=== PATIENT | female | born 1960 | race African-American/Black ===

== ENCOUNTER 2016-09-23 21:30 | Inpatient (IN) | payer OTHER ==
[2016-09-23 22:57] LABS: ABSOLUTE EOSINOPHILS # (AUTO) 0.5 10^3/uL (0.0-0.6); ABSOLUTE MONOCYTES (AUTO) 0.9 10^3/uL (0.1-1.4); BASOPHILS % (AUTO) 0.7 % (0-2); EOSINOPHILS % (AUTO) 7.2 % (0-6); HEMATOCRIT 39.3 % (36.0-47.0); HGB HCT DIFFERENCE -0.3; LYMPHOCYTES % (AUTO) 13.5 % (13-45); MEAN CORPUSCULAR HGB CONC 33.2 g/dL (32.0-36.0); MEAN CORPUSCULAR VOLUME 78 fl (80-97); RED BLOOD COUNT 5.01 10^6/uL (3.72-5.28); RED CELL DISTRIBUTION WIDTH 14.5 % (11.5-14.0); SEGMENTED NEUTROPHILS % (AUTO) 66.6 % (42-78); WHITE BLOOD COUNT 7.5 10^3/uL (4.0-10.5)
[2016-09-24] MEDS ORDERED: ALBUTEROL SULFATE 0.083% NEB 2.5 MG/3 ML AMPUL NEB ONE
[2016-09-24] MEDS ORDERED: LEVOFLOXACIN 750 MG/D5W RTU 150 ML IV ONE (00:16)
[2016-09-24] MEDS ORDERED: IPRATROPIUM/ALBUTEROL 0.5-2.5 MG/3 ML AMPUL NEB ONE (00:18)
[2016-09-24] MEDS ORDERED: METHYLPREDNISOLONE INJ 125 MG/2 ML SDV IV ONE (00:18)
[2016-09-24 00:26] LABS: VENOUS BLOOD BASE EXCESS 4.2 mmol/L; VENOUS BLOOD HCO3 29.7 mmol/L (20-32); VENOUS BLOOD PCO2 47.4 mmHg (35-63); VENOUS BLOOD PH 7.42 (7.30-7.42)
[2016-09-24] MEDS: MAGNESIUM SULFATE/D5W 100 ML IV SCH ×4 (00:36→04:18)
[2016-09-24 00:38] LABS: ALANINE AMINOTRANSFERASE 32 U/L (9-52); ALBUMIN 4.7 g/dL (3.5-5.0); ALKALINE PHOSPHATASE 124 U/L (38-126); ANION GAP 12 (5-19); ASPARTATE AMINO TRANSFERASE 25 U/L (14-36); BILIRUBIN,TOTAL 0.9 mg/dL (0.2-1.3); BLOOD UREA NITROGEN 9 mg/dL (7-20); CALCIUM 10.2 mg/dL (8.4-10.2); CARBON DIOXIDE 29 mmol/L (22-30); CHLORIDE 103 mmol/L (98-107); CREATININE RESULT 0.64 mg/dL (0.52-1.25); GLUCOSE 110 mg/dL (75-110); POTASSIUM 3.5 mmol/L (3.6-5.0); SODIUM 144.2 mmol/L (137-145)
--- NOTE | 2016-09-24 00:47 | ER Document Report ---
ED General - General Chief Complaint: Productive Cough Stated Complaint: PAIN IN SIDE Notes: Patient's 56 year old female presents for complaint of difficulty breathing. She was seen at [facility] emergency department yesterday. She is diagnosed with pneumonia and sent home on an antibiotic. She's unsure what antibiotic is at this time. Today she had difficulty breathing which increased worsened. She came in with O2 saturation 93% in triage; however, I got her back to room her O2 saturations in the 80s and she is working hard to breathe and tachycardic and tachypneic. She was a smoker 25 years ago. She does not smoke since. She's been told the past that she may have COPD. No history of asthma. She is unsure if she's had fevers at home. No other complaints at this time. TRAVEL OUTSIDE OF THE [place] IN LAST 30 DAYS: No - Related Data Allergies/Adverse Reactions: benzonatate [From T4 [employer]] Allergy (Verified 09/24/16 03:09) NSAIDS (Non-Steroidal Anti-Inflamma Allergy (Verified 09/24/16 03:09) Home Medications: Current Home Medications Albuterol Sulfate [Albuterol Sulfate 2.5mg/3 mL] 1 vial IH Q4 PRN 09/24/16 [ History] Albuterol Sulfate [Ventolin Hfa] 1 - 2 puff IH Q4 PRN 09/24/16 [History] Doxycycline Hyclate [Vibramycin] 100 mg PO BID 09/24/16 [History] Fluticasone/Vilanterol [Breo Ellipta 100-25 Mcg INH] 1 each IH DAILY 09/24/16 [ History] Metoprolol Tartrate [Lopressor 25 mg Tablet] 25 mg PO BID 09/24/16 [History] Past Medical History - Social History Smoking Status: Unknown if Ever Smoked Frequency of alcohol use: None Drug Abuse: None Family History: Reviewed & Not Pertinent Patient has suicidal ideation: No Patient has homicidal ideation: No Renal/ Medical History: Denies: Hx Peritoneal Dialysis Review of Systems - Review of Systems Notes: My Normal Review Basic REVIEW OF SYSTEMS: CONSTITUTIONAL : Denies fever, chills, or sweats. Denies recent illness. EENT: Denies eye, ear, throat, or mouth pain or symptoms. Denies nasal or sinus congestion. CARDIOVASCULAR: Denies chest pain. RESPIRATORY: Difficulty breathing. Recent diagnosis of pneumonia. GASTROINTESTINAL: Denies abdominal pain. Denies nausea, vomiting, or diarrhea. Denies constipation. Last BM: P: MUSCULOSKELETAL: Denies neck or back pain or joint pain or swelling. SKIN: Denies rash or skin lesions. HEMATOLOGIC : Denies easy bruising or bleeding. NEUROLOGICAL: Denies altered mental status or loss of consciousness. Denies headache. Denies weakness or paralysis or loss of use of either side. Denies problems with gait or speech. Denies sensory or motor loss. ALL OTHER SYSTEMS REVIEWED AND NEGATIVE. Physical Exam - Vital signs Vitals: Temp Pulse Resp BP Pulse Ox 97.8 F 123 H 26 H 140/68 H 93 09/23/16 22:07 09/23/16 22:07 09/23/16 22:07 09/23/16 22:07 09/23/16 22:07 - Notes Notes: General Appearance: Well nourished, alert, cooperative, moderate acute distress , no obvious discomfort. Patient is very tachypneic. Vitals: reviewed, See vital signs table. Head: no swelling or tenderness to the head Eyes: PERRL, EOMI, Conjuctiva clear Mouth: No decreasd moisture Throat: No tonsillar inflammation, No airway obstruction, No lymphadenopathy Neck: Supple, no neck tenderness, No thyromegaly Lungs: Diffuse wheezing, No rales, No rhonci, No accessory muscle use, fair air exchange bilaterally. Heart: Tachycardic rate, Regular rythm, No murmur, no rub Abdomen: Normal BS, soft, No rigidity, No abdominal tenderness, No guarding, no rebound, no abdominal masses, no organomegaly Extremities: strength 5/5 in all extremities, good pulses in all extremities, no swelling or tenderness in the extremities, no edema. Skin: warm, dry, appropriate color, no rash Neuro: speech clear, oriented x 3, normal affect, responds appropriately to questions. Course - Re-evaluation Re-evalutation: 09/24/16 02:09 Reevaluation the patient is still tachycardic. Her tachypnea is somewhat improved but she still has some obvious difficulty breathing. Lung preciado are improving. She does not have near as much wheezing. Her oxygen saturation is only 91% on [address] her on BiPAP. 09/24/16 02:47 She is feeling improved on BiPAP. She still very tachycardic. Her chest x-ray shows what appears to be did be consistent with maybe a pneumonia. She's had no fevers. She does not have much of a leukocytosis. I did perform a CT scan to make sure that this is not an underlying pulmonary embolism that could be making the infiltrative type appearing lesion on the x-ray being that shehas actually not had any real infectious symptoms leading up to this. - Vital Signs Vital signs: Temp Pulse Resp BP Pulse Ox 97.8 F 123 H 21 H 138/62 H 97 09/23/16 22:07 09/23/16 22:07 09/24/16 04:31 09/24/16 04:31 09/24/16 04:31 - Laboratory Result Diagrams: 09/23/16 22:45 09/24/16 00:10 Laboratory results interpreted by me: 09/23/16 09/24/16 22:45 00:10 MCV 78 L MCH 26.0 L RDW 14.5 H Eosinophils % 7.2 H Potassium 3.5 L - EKG Interpretation by Me Additional EKG results interpreted by me: 09/24/16 00:47 EKG is reviewed and interpreted by me. EKG shows sinus tachycardia with rate of [address] segment elevation or depression. No ischemic T wave inversions. IA interval, QRS duration, QTC intervals are within normal range. No old EKG available for comparison. - Transfer of Care Notes: 09/24/16 04:42 Patient is much improved on a BiPAP. Her oxygenation and heart rate are improving with BiPAP. I did performed a CT injury. He was negative for PE. This showed pneumonia. I placed her on Levaquin. Patient will be admitted for management of her pneumonia and hypoxemia. Dictation of this chart was performed using voice recognition software; therefore, there may be some unintended grammatical errors. Discharge - Discharge Clinical Impression: Respiratory distress Pneumonia Qualifiers: Pneumonia type: due to unspecified organism Laterality: right Lung location: lower lobe of lung Qualified Code(s): J18.1 - Lobar pneumonia, unspecified organism Condition: Stable Disposition: ADMITTED INPATIENT Admitting Provider: Hospitalist Unit Admitted: Telemetry
[2016-09-24] MEDS ORDERED: NORMAL SALINE 1000 ML 1,000 ML IV ONE (02:46)
[2016-09-24] MEDS ORDERED: NORMAL SALINE 1000 ML 500 ML IV ONE (02:46)
[2016-09-24] MEDS ORDERED: IPRATROPIUM/ALBUTEROL 0.5-2.5 MG/3 ML AMPUL NEB PRN (04:47)
[2016-09-24] MEDS ORDERED: CEFEPIME INJ 2 GM VIAL IV PRN (04:59)
[2016-09-24] MEDS ORDERED: NORMAL SALINE 1000 ML 1,000 ML IV SCH (05:00)
[2016-09-24] MEDS: CEFEPIME 2 GM/D5W RTU 2 GM/50 ML RTUPB IV SCH ×2 (05:48→18:24)
[2016-09-24] MEDS: HEPARIN SOD (PORCINE) 5,000 UNIT/ML 1 ML SYRINGE SUBCUT SCH ×3 (05:54→21:15)
[2016-09-24] MEDS ORDERED: LACTULOSE SYRUP 20 GM/30 ML UDCUP PO ONE (06:30)
--- NOTE | 2016-09-24 07:48 | PDOC H&P ---
History of Present Illness Admission Date/PCP: 09/24/16 04:47 Patient complains of: Shortness of breath and cough History of Present Illness: ADDIE STEWART is a 56 year old female with a past medical history of COPD and nasal polyps and been her usual state of health until approximately 6 weeks ago with shortness of breath. Who is seen yesterday at [facility]. for shortness of breath and cough she was diagnosed with pneumonia and given a prescription of doxycycline however the patient has persistent worsening. She comes to emergency room for a reevaluation where she's found to be tachypneic and hypoxic requiring BiPAP at 50% a chest x-ray shows right-sided infiltrate she denies previous episode or coughing while eating. Denies infectious contacts, or changes in her medication regiment with exception to doxycycline. Past Medical History Pulmonary Medical History: Reports: Chronic Obstructive Pulmonary Disease (COPD) , Pneumonia EENT Medical History: Reports: Nose - Nasal polyps, Other Neurological Medical History: Reports: None Endocrine Medical History: Reports: None Renal/ Medical History: Reports: None Malignancy Medical History: Reports: None GI Medical History: Reports: None Musculoskeltal Medical History: Reports: None Skin Medical History: Reports: None Psychiatric Medical History: Reports: None Hematology: Reports: None Infectious Medical History: Reports: None Past Surgical History Past Surgical History: Reports: None Social History Information Source: Patient Lives with: Family Smoking Status: Unknown if Ever Smoked Frequency of Alcohol Use: None Drugs: None - Advance Directive Resuscitation Status: Full Code Family History Family History: COPD, Hypertension Parental Family History Reviewed: Yes Children Family History Reviewed: Yes Sibling(s) Family History Reviewed.: Yes Medication/Allergy Home Medications: Albuterol Sulfate [Albuterol Sulfate 2.5mg/3 mL] 1 vial IH Q4 PRN 09/24/16 Albuterol Sulfate [Ventolin Hfa] 1 - 2 puff IH Q4 PRN 09/24/16 Doxycycline Hyclate [Vibramycin] 100 mg PO BID 09/24/16 Fluticasone/Vilanterol [Breo Ellipta 100-25 Mcg INH] 1 each IH DAILY 09/24/16 Metoprolol Tartrate [Lopressor 25 mg Tablet] 25 mg PO BID 09/24/16 Allergies/Adverse Reactions: benzonatate [From Wes Blanco] Allergy (Verified 09/24/16 03:09) NSAIDS (Non-Steroidal Anti-Inflamma Allergy (Verified 09/24/16 03:09) Review of Systems Constitutional: PRESENT: chills, fatigue, fever(s), weakness Eyes: ABSENT: visual disturbances Ears: ABSENT: hearing changes Nose, Mouth, and Throat: PRESENT: as per HPI Cardiovascular: ABSENT: chest pain, dyspnea on exertion, edema, orthropnea, palpitations Respiratory: PRESENT: cough, dyspnea, sputum - Clear. ABSENT: hemoptysis Gastrointestinal: ABSENT: abdominal pain, constipation, diarrhea, hematemesis, hematochezia, nausea, vomiting Genitourinary: ABSENT: dysuria, hematuria Musculoskeletal: ABSENT: joint swelling Integumentary: ABSENT: rash, wounds Neurological: ABSENT: abnormal gait, abnormal speech, confusion, dizziness, focal weakness, syncope Psychiatric: ABSENT: anxiety, depression, homidical ideation, suicidal ideation Endocrine: ABSENT: cold intolerance, heat intolerance, polydipsia, polyuria Hematologic/Lymphatic: ABSENT: easy bleeding, easy bruising Physical Exam Vital Signs: Temp Pulse Resp BP Pulse Ox 97.8 F 123 H 20 145/71 H 98 09/23/16 22:07 09/23/16 22:07 09/24/16 07:15 09/24/16 07:01 09/24/16 07:15 Intake & Output 09/22/16 09/23/16 09/24/16 11:59 11:59 11:59 Output Total 1000 Balance -1000 General appearance: PRESENT: cooperative, obese, severe distress Head exam: PRESENT: atraumatic, normocephalic Eye exam: PRESENT: conjunctiva pink, EOMI, PERRLA. ABSENT: scleral icterus Ear exam: PRESENT: normal external ear exam Mouth exam: PRESENT: moist, tongue midline Neck exam: ABSENT: carotid bruit, JVD, lymphadenopathy, thyromegaly Respiratory exam: PRESENT: accessory muscle use, crackles, prolonged expiratory phas, rales, rhonchi, symmetrical, tachypnea. ABSENT: chest wall tenderness, clear to auscultation connor Cardiovascular exam: PRESENT: RRR. ABSENT: diastolic murmur, rubs, systolic murmur Pulses: PRESENT: normal dorsalis pedis pul Vascular exam: PRESENT: normal capillary refill GI/Abdominal exam: PRESENT: normal bowel sounds, soft. ABSENT: distended, guarding, mass, organolmegaly, rebound, tenderness Rectal exam: PRESENT: deferred Extremities exam: PRESENT: full ROM. ABSENT: calf tenderness, clubbing, pedal edema Neurological exam: PRESENT: alert, awake, oriented to person, oriented to place , oriented to time, oriented to situation, CN II-XII grossly intact. ABSENT: motor sensory deficit Psychiatric exam: PRESENT: appropriate affect, normal mood. ABSENT: homicidal ideation, suicidal ideation Skin exam: PRESENT: dry, intact, warm. ABSENT: cyanosis, rash Results Impressions: Chest X-Ray 09/23/16 00:00 IMPRESSION: RIGHT MIDDLE LOBE INFILTRATE CONSISTENT WITH PNEUMONIA. Chest/Abdomen CTA 09/24/16 02:46 IMPRESSION: Small right middle lobar pneumonia. No evidence of pulmonary embolus. 7-[address] recommended. Assessment & Plan - Diagnosis (1) COPD with exacerbation Is this a current diagnosis for this admission?: YesPlan: Complicated by nasal polyps she is placed on albuterol, Atrovent, Flonase and Claritin (2) Pneumonia Qualifiers: Pneumonia type: due to unspecified organism Laterality: right Lung location: lower lobe of lung Qualified Code(s): J18.1 - Lobar pneumonia, unspecified organism Is this a current diagnosis for this admission?: YesPlan: Empiric antibiotics of Levaquin, cefepime symptomatic and supportive measures obtaining blood and sputum culture with follow-up CBC - Time Time Spent: 30 to 50 Minutes
--- NOTE | 2016-09-24 07:59 | EKG REPORT ---
SEVERITY:- ABNORMAL ECG - SINUS TACHYCARDIA CONSIDER LEFT VENTRICULAR HYPERTROPHY : Confirmed by: Pennie Wilde MD 24-Sep-2016 07:58:14
[2016-09-24] MEDS: IPRATROPIUM/ALBUTEROL 0.5-2.5 MG/3 ML AMPUL NEB SCH ×3 (09:11→20:23)
[2016-09-24] MEDS: GUAIFENESIN 600 MG TABLET.SA PO SCH ×2 (09:48→21:15)
[2016-09-24] MEDS: METOPROLOL TARTRATE 25 MG TABLET PO SCH ×2 (09:49→18:23)
[2016-09-25] MEDS: IPRATROPIUM/ALBUTEROL 0.5-2.5 MG/3 ML AMPUL NEB SCH ×4 (02:29→20:54)
[2016-09-25] MEDS: LEVOFLOXACIN 750 MG/D5W RTU 750 MG/150 ML RTUPB IV SCH ×2 (03:42→22:32)
[2016-09-25] MEDS ORDERED: CEFEPIME 2 GM/D5W RTU 2 GM/50 ML RTUPB IV ONE (05:42)
[2016-09-25] MEDS: HEPARIN SOD (PORCINE) 5,000 UNIT/ML 1 ML SYRINGE SUBCUT SCH ×3 (05:51→22:33)
[2016-09-25 06:05] LABS: ABSOLUTE LYMPHOCYTES (AUTO) 1.6 10^3/uL (0.5-4.7); ABSOLUTE MONOCYTES (AUTO) 1.2 10^3/uL (0.1-1.4); ABSOLUTE NEUT (AUTO) 5.7 10^3/uL (1.7-8.2); BASOPHILS % (AUTO) 0.5 % (0-2); EOSINOPHILS % (AUTO) 0.4 % (0-6); HEMATOCRIT 36.2 % (36.0-47.0); HGB HCT DIFFERENCE -0.2; MEAN CORPUSCULAR HEMOGLOBIN 26.1 pg (27.0-33.4); MEAN CORPUSCULAR HGB CONC 33.1 g/dL (32.0-36.0); MEAN CORPUSCULAR VOLUME 79 fl (80-97); MONOCYTES % (AUTO) 13.6 % (3-13); RED BLOOD COUNT 4.59 10^6/uL (3.72-5.28); RED CELL DISTRIBUTION WIDTH 14.5 % (11.5-14.0); SEGMENTED NEUTROPHILS % (AUTO) 66.5 % (42-78); WHITE BLOOD COUNT 8.6 10^3/uL (4.0-10.5)
[2016-09-25] MEDS: CEFEPIME 2 GM/D5W RTU 2 GM/50 ML RTUPB IV SCH (06:11)
[2016-09-25 06:22] LABS: ANION GAP 11 (5-19); BLOOD UREA NITROGEN 10 mg/dL (7-20); CALCIUM 9.6 mg/dL (8.4-10.2); CARBON DIOXIDE 27 mmol/L (22-30); CHLORIDE 108 mmol/L (98-107); CREATININE RESULT 0.54 mg/dL (0.52-1.25); GLUCOSE 104 mg/dL (75-110); POTASSIUM 3.3 mmol/L (3.6-5.0); SODIUM 145.5 mmol/L (137-145)
[2016-09-25] MEDS ORDERED: POTASSIUM CHLORIDE 10 MEQ TABLET.SA PO ONE (09:00)
[2016-09-25] MEDS ORDERED: (PENDING PHARMACY ID) (Fluticasone/Vilanterol [Breo Ellipta 100-25 Mcg Inh] 1 PUFF) IH SCH ×2 (09:45→10:00)
[2016-09-25] MEDS: GUAIFENESIN 600 MG TABLET.SA PO SCH ×2 (10:28→22:33)
[2016-09-25] MEDS ORDERED: METOPROLOL TARTRATE 25 MG TABLET PO ONE (11:00)
[2016-09-25] MEDS ORDERED: INFLUENZA ADLT QUAD (36MOS+) 2016-17 VAC 0.5 ML SYR IM PRN (11:02)
[2016-09-25] MEDS: METHYLPREDNISOLONE INJ 125 MG/2 ML SDV IV SCH ×2 (14:40→22:33)
--- NOTE | 2016-09-25 16:21 | PDOC PROGRESS REPORT ---
Subjective Progress Note for:: 09/25/16 Subjective:: Patient seen on morning rounds. She is resting in bed. She states her breathing is improved since yesterday. She continues to have some wheezing and coughing . Her oxygen saturations have improved. She denies any chest pain, or dizziness. She denies any nausea, vomiting or abdominal pain. She denies any fevers or chills. She denies any other complaints Physical Exam Vital Signs: Temp Pulse Resp BP Pulse Ox 97.7 F 110 H 18 153/65 H 93 09/25/16 11:14 09/25/16 14:00 09/25/16 13:51 09/25/16 11:14 09/25/16 13:51 Intake & Output 09/24/16 09/25/16 09/26/16 06:59 06:59 06:59 Intake Total 1150 478 Output Total 1000 0 400 Balance -1000 1150 78 Weight 77.5 kg General appearance: PRESENT: no acute distress, well-developed, well-nourished Head exam: PRESENT: atraumatic Eye exam: PRESENT: conjunctiva pink, EOMI, PERRLA. ABSENT: scleral icterus Ear exam: PRESENT: normal external ear exam Neck exam: ABSENT: carotid bruit, JVD, lymphadenopathy, thyromegaly Respiratory exam: PRESENT: rhonchi, wheezes. ABSENT: rales Cardiovascular exam: PRESENT: RRR. ABSENT: diastolic murmur, rubs, systolic murmur Pulses: PRESENT: normal dorsalis pedis pul Vascular exam: PRESENT: normal capillary refill GI/Abdominal exam: PRESENT: normal bowel sounds, soft. ABSENT: distended, guarding, mass, organolmegaly, rebound, tenderness Rectal exam: PRESENT: deferred Extremities exam: PRESENT: full ROM. ABSENT: calf tenderness, clubbing, pedal edema Neurological exam: PRESENT: alert, oriented to person, oriented to place, oriented to time, oriented to situation, CN II-XII grossly intact Psychiatric exam: PRESENT: appropriate affect, normal mood. ABSENT: homicidal ideation, suicidal ideation Skin exam: PRESENT: dry, intact, warm. ABSENT: cyanosis, rash Results Laboratory Results: 09/25/16 05:21 09/25/16 05:21 09/25/16 09/25/16 05:21 05:21 WBC 8.6 RBC 4.59 Hgb 12.0 Hct 36.2 MCV 79 L MCH 26.1 L MCHC 33.1 RDW 14.5 H Plt Count 340 Seg Neutrophils % 66.5 Lymphocytes % 19.0 Monocytes % 13.6 H Eosinophils % 0.4 Basophils % 0.5 Absolute Neutrophils 5.7 Absolute Lymphocytes 1.6 Absolute Monocytes 1.2 Absolute Eosinophils 0.0 Absolute Basophils 0.0 Sodium 145.5 H Potassium 3.3 L Chloride 108 H Carbon Dioxide 27 Anion Gap 11 BUN 10 Creatinine 0.54 Est GFR ( Amer) > 60 Est GFR (Non-Af Amer) > 60 Glucose 104 Calcium 9.6 09/25/16 05:55 Sputum Gram Stain - Final 09/25/16 05:55 Sputum Sputum Culture - Final Impressions: Chest X-Ray 09/23/16 00:00 IMPRESSION: RIGHT MIDDLE LOBE INFILTRATE CONSISTENT WITH PNEUMONIA. Chest/Abdomen CTA 09/24/16 02:46 IMPRESSION: Small right middle lobar pneumonia. No evidence of pulmonary embolus. 7-[address] recommended. Assessment & Plan - Diagnosis (1) Pneumonia Qualifiers: Pneumonia type: due to unspecified organism Laterality: right Lung location: lower lobe of lung Qualified Code(s): J18.1 - Lobar pneumonia, unspecified organism Is this a current diagnosis for this admission?: YesPlan: Continue broad spectrum antibiotics. Cultures pending (2) COPD with exacerbation Is this a current diagnosis for this admission?: YesPlan: Will continue IV steroids, inhalers and nebulizers. Much improved since yesterday (3) Respiratory distress Is this a current diagnosis for this admission?: Yes (4) Acute respiratory failure with hypoxemia Is this a current diagnosis for this admission?: YesPlan: Patient required BIPAP at 50% FIO2 yesterday. Today she is on oxygen at 2l/min via n/c with good saturation - Time Time Spent with patient: 25-34 minutes Critical Time spent with patient: 15-24 minutes Medications reviewed and adjusted accordingly: Yes Anticipated discharge: Home - Inpatient Certification Based on my medical assessment, after consideration of the patient's comorbidities, presenting symptoms, or acuity I expect that the services needed warrant INPATIENT care.: Yes I certify that my determination is in accordance with my understanding of Medicare's requirements for reasonable and necessary INPATIENT services [42 CFR 412.3e].: Yes Medical Necessity: Risk of Complication if Not Cared For in Hospital
[2016-09-25] MEDS: CEFEPIME HCL 2 GM in DEXTROSE 5%-WATER 50 ML IV SCH (17:20)
[2016-09-25] MEDS: METOPROLOL TARTRATE 25 MG TABLET PO SCH (22:33)
[2016-09-26] MEDS: IPRATROPIUM/ALBUTEROL 0.5-2.5 MG/3 ML AMPUL NEB SCH ×4 (01:57→20:24)
[2016-09-26] MEDS: HEPARIN SOD (PORCINE) 5,000 UNIT/ML 1 ML SYRINGE SUBCUT SCH ×3 (05:46→22:32)
[2016-09-26] MEDS: CEFEPIME HCL 2 GM in DEXTROSE 5%-WATER 50 ML IV SCH ×2 (05:46→17:40)
[2016-09-26] MEDS: METHYLPREDNISOLONE INJ 125 MG/2 ML SDV IV SCH ×3 (05:46→22:32)
[2016-09-26 06:34] LABS: ABSOLUTE LYMPHOCYTES (AUTO) 0.8 10^3/uL (0.5-4.7); ABSOLUTE MONOCYTES (AUTO) 0.1 10^3/uL (0.1-1.4); ABSOLUTE NEUT (AUTO) 3.8 10^3/uL (1.7-8.2); BASOPHILS % (AUTO) 0.3 % (0-2); HEMATOCRIT 35.1 % (36.0-47.0); HEMOGLOBIN 11.7 g/dL (12.0-15.5); LYMPHOCYTES % (AUTO) 16.8 % (13-45); MEAN CORPUSCULAR HEMOGLOBIN 26.3 pg (27.0-33.4); MEAN CORPUSCULAR HGB CONC 33.3 g/dL (32.0-36.0); MEAN CORPUSCULAR VOLUME 79 fl (80-97); MONOCYTES % (AUTO) 2.1 % (3-13); RED BLOOD COUNT 4.44 10^6/uL (3.72-5.28); RED CELL DISTRIBUTION WIDTH 14.6 % (11.5-14.0); SEGMENTED NEUTROPHILS % (AUTO) 80.8 % (42-78); WHITE BLOOD COUNT 4.7 10^3/uL (4.0-10.5)
[2016-09-26 06:49] LABS: ANION GAP 9 (5-19); BLOOD UREA NITROGEN 13 mg/dL (7-20); CALCIUM 9.5 mg/dL (8.4-10.2); CARBON DIOXIDE 26 mmol/L (22-30); CHLORIDE 106 mmol/L (98-107); CREATININE RESULT 0.56 mg/dL (0.52-1.25); GLUCOSE 176 mg/dL (75-110); POTASSIUM 3.9 mmol/L (3.6-5.0); SODIUM 140.8 mmol/L (137-145)
[2016-09-26] MEDS: GUAIFENESIN 600 MG TABLET.SA PO SCH ×2 (09:50→22:32)
[2016-09-26] MEDS: METOPROLOL TARTRATE 25 MG TABLET PO SCH ×2 (09:51→22:32)
--- NOTE | 2016-09-26 16:17 | PDOC PROGRESS REPORT ---
Subjective Progress Note for:: 09/26/16 Subjective:: Patient seen on morning rounds. She is resting in bed. She states her breathing is improved since yesterday. She continues to have some wheezing and coughing . Her cough is now productive . Her oxygen saturations have improved. She denies any chest pain, or dizziness. She denies any nausea, vomiting or abdominal pain. She denies any fevers or chills. She denies any other complaints Physical Exam Vital Signs: Temp Pulse Resp BP Pulse Ox 98.0 F 100 20 149/69 H 93 09/26/16 12:33 09/26/16 14:39 09/26/16 14:39 09/26/16 12:33 09/26/16 14:39 Intake & Output 09/25/16 09/26/16 09/27/16 06:59 06:59 06:59 Intake Total 1150 1148 700 Output Total 0 800 600 Balance 1150 348 100 Weight 77.5 kg 78.1 kg General appearance: PRESENT: no acute distress, well-developed, well-nourished Head exam: PRESENT: atraumatic, normocephalic Eye exam: PRESENT: conjunctiva pink, EOMI, PERRLA. ABSENT: scleral icterus Ear exam: PRESENT: normal external ear exam Neck exam: ABSENT: carotid bruit, JVD, lymphadenopathy, thyromegaly Respiratory exam: PRESENT: rhonchi - bilaterally left worse than right, wheezes. ABSENT: rales Cardiovascular exam: PRESENT: RRR. ABSENT: diastolic murmur, rubs, systolic murmur Pulses: PRESENT: normal dorsalis pedis pul Vascular exam: PRESENT: normal capillary refill GI/Abdominal exam: PRESENT: normal bowel sounds, soft. ABSENT: distended, guarding, mass, organolmegaly, rebound, tenderness Rectal exam: PRESENT: deferred Extremities exam: PRESENT: full ROM. ABSENT: calf tenderness, clubbing, pedal edema Neurological exam: PRESENT: alert, awake, oriented to person, oriented to place , oriented to time, oriented to situation, CN II-XII grossly intact. ABSENT: motor sensory deficit Psychiatric exam: PRESENT: appropriate affect, normal mood. ABSENT: homicidal ideation, suicidal ideation Skin exam: PRESENT: dry, intact, warm. ABSENT: cyanosis, rash Results Laboratory Results: 09/26/16 06:12 09/26/16 06:12 09/26/16 09/26/16 06:12 06:12 WBC 4.7 RBC 4.44 Hgb 11.7 L Hct 35.1 L MCV 79 L MCH 26.3 L MCHC 33.3 RDW 14.6 H Plt Count 327 Seg Neutrophils % 80.8 H Lymphocytes % 16.8 Monocytes % 2.1 L Eosinophils % 0.0 Basophils % 0.3 Absolute Neutrophils 3.8 Absolute Lymphocytes 0.8 Absolute Monocytes 0.1 Absolute Eosinophils 0.0 Absolute Basophils 0.0 Sodium 140.8 Potassium 3.9 Chloride 106 Carbon Dioxide 26 Anion Gap 9 BUN 13 Creatinine 0.56 Est GFR ( Amer) > 60 Est GFR (Non-Af Amer) > 60 Glucose 176 H Calcium 9.5 Impressions: Chest X-Ray 09/23/16 00:00 IMPRESSION: RIGHT MIDDLE LOBE INFILTRATE CONSISTENT WITH PNEUMONIA. Chest/Abdomen CTA 09/24/16 02:46 IMPRESSION: Small right middle lobar pneumonia. No evidence of pulmonary embolus. 7-[address] recommended. Assessment & Plan - Diagnosis (1) Pneumonia Qualifiers: Pneumonia type: due to unspecified organism Laterality: right Lung location: lower lobe of lung Qualified Code(s): J18.1 - Lobar pneumonia, unspecified organism Is this a current diagnosis for this admission?: YesPlan: Continue broad spectrum antibiotics. Cultures pending (2) COPD with exacerbation Is this a current diagnosis for this admission?: YesPlan: Will continue IV steroids, inhalers and nebulizers. Much improved since yesterday (3) Respiratory distress Is this a current diagnosis for this admission?: YesPlan: Result. (4) Acute respiratory failure with hypoxemia Is this a current diagnosis for this admission?: YesPlan: Patient required BIPAP at 50% FIO2 yesterday. Today she is on oxygen at 2l/min via n/c with good saturation - Time Time Spent with patient: 25-34 minutes Critical Time spent with patient: 15-24 minutes Medications reviewed and adjusted accordingly: Yes Anticipated discharge: Home
[2016-09-26] MEDS: GUAIFENESIN SYRP 200 MG/10 ML UDC PO PRN (19:32)
[2016-09-26] MEDS ORDERED: LEVOFLOXACIN 750 MG TABLET PO SCH (22:00)
[2016-09-27] MEDS: IPRATROPIUM/ALBUTEROL 0.5-2.5 MG/3 ML AMPUL NEB SCH ×4 (02:30→20:35)
[2016-09-27] MEDS: CEFEPIME HCL 2 GM in DEXTROSE 5%-WATER 50 ML IV SCH (05:13)
[2016-09-27] MEDS: HEPARIN SOD (PORCINE) 5,000 UNIT/ML 1 ML SYRINGE SUBCUT SCH ×3 (05:13→22:55)
[2016-09-27] MEDS: METHYLPREDNISOLONE INJ 125 MG/2 ML SDV IV SCH (05:13)
[2016-09-27 06:07] LABS: ABSOLUTE LYMPHOCYTES (AUTO) 0.8 10^3/uL (0.5-4.7); ABSOLUTE MONOCYTES (AUTO) 0.3 10^3/uL (0.1-1.4); ABSOLUTE NEUT (AUTO) 5.7 10^3/uL (1.7-8.2); BASOPHILS % (AUTO) 0.4 % (0-2); HEMATOCRIT 35.5 % (36.0-47.0); HEMOGLOBIN 11.9 g/dL (12.0-15.5); HGB HCT DIFFERENCE 0.2; LYMPHOCYTES % (AUTO) 11.6 % (13-45); MEAN CORPUSCULAR HEMOGLOBIN 26.3 pg (27.0-33.4); MEAN CORPUSCULAR HGB CONC 33.6 g/dL (32.0-36.0); MEAN CORPUSCULAR VOLUME 78 fl (80-97); MONOCYTES % (AUTO) 4.9 % (3-13); RED BLOOD COUNT 4.53 10^6/uL (3.72-5.28); RED CELL DISTRIBUTION WIDTH 14.6 % (11.5-14.0); SEGMENTED NEUTROPHILS % (AUTO) 83.1 % (42-78); WHITE BLOOD COUNT 6.9 10^3/uL (4.0-10.5)
[2016-09-27 06:24] LABS: ANION GAP 13 (5-19); BLOOD UREA NITROGEN 16 mg/dL (7-20); CALCIUM 9.7 mg/dL (8.4-10.2); CARBON DIOXIDE 26 mmol/L (22-30); CHLORIDE 105 mmol/L (98-107); GLUCOSE 173 mg/dL (75-110); POTASSIUM 3.9 mmol/L (3.6-5.0)
[2016-09-27] MEDS: ACETAMINOPHEN 325 MG TABLET PO PRN (10:36)
[2016-09-27] MEDS ORDERED: ONDANSETRON 4 MG TAB.RAPDIS PO PRN (10:50)
[2016-09-27] MEDS: METOPROLOL TARTRATE 25 MG TABLET PO SCH ×2 (12:24→22:01)
[2016-09-27] MEDS: PREDNISONE 20 MG TABLET PO SCH ×2 (13:30→22:00)
[2016-09-27] MEDS: GUAIFENESIN 600 MG TABLET.SA PO SCH ×2 (13:31→22:00)
--- NOTE | 2016-09-27 14:06 | PDOC PROGRESS REPORT ---
Subjective Progress Note for:: 09/27/16 Subjective:: Patient seen on morning rounds. She is resting in bedside chair. She states her breathing is improved since yesterday. She continues to have some wheezing and coughing . Her cough is now productive . Her oxygen saturations have improved. She denies any chest pain, or dizziness. She denies any vomiting or abdominal pain. She has had some nausea after something she ate for breakfast just didn't agree with her. She denies any fevers or chills. She denies any other complaints Physical Exam Vital Signs: Temp Pulse Resp BP Pulse Ox 97.4 F 89 16 175/78 H 97 09/27/16 11:32 09/27/16 11:32 09/27/16 11:32 09/27/16 11:32 09/27/16 11:32 Intake & Output 09/26/16 09/27/16 09/28/16 06:59 06:59 06:59 Intake Total 1148 2230 360 Output Total 800 600 Balance 348 1630 360 Weight 78.1 kg 79.9 kg General appearance: PRESENT: no acute distress, well-developed, well-nourished Head exam: PRESENT: atraumatic, normocephalic Eye exam: PRESENT: conjunctiva pink, EOMI, PERRLA. ABSENT: scleral icterus Ear exam: PRESENT: normal external ear exam Mouth exam: PRESENT: moist, tongue midline Neck exam: ABSENT: carotid bruit, JVD, lymphadenopathy, thyromegaly Respiratory exam: PRESENT: clear to auscultation connor. ABSENT: rales, rhonchi, wheezes Cardiovascular exam: PRESENT: RRR. ABSENT: diastolic murmur, rubs, systolic murmur Pulses: PRESENT: normal dorsalis pedis pul Vascular exam: PRESENT: normal capillary refill GI/Abdominal exam: PRESENT: normal bowel sounds, soft. ABSENT: distended, guarding, mass, organolmegaly, rebound, tenderness Rectal exam: PRESENT: deferred Extremities exam: PRESENT: full ROM. ABSENT: calf tenderness, clubbing, pedal edema Neurological exam: PRESENT: alert, awake, oriented to person, oriented to place , oriented to time, oriented to situation, CN II-XII grossly intact. ABSENT: motor sensory deficit Psychiatric exam: PRESENT: appropriate affect, normal mood. ABSENT: homicidal ideation, suicidal ideation Skin exam: PRESENT: dry, intact, warm. ABSENT: cyanosis, rash Results Laboratory Results: 09/27/16 05:34 09/27/16 05:34 09/27/16 09/27/16 05:34 05:34 WBC 6.9 RBC 4.53 Hgb 11.9 L Hct 35.5 L MCV 78 L MCH 26.3 L MCHC 33.6 RDW 14.6 H Plt Count 357 Seg Neutrophils % 83.1 H Lymphocytes % 11.6 L Monocytes % 4.9 Eosinophils % 0.0 Basophils % 0.4 Absolute Neutrophils 5.7 Absolute Lymphocytes 0.8 Absolute Monocytes 0.3 Absolute Eosinophils 0.0 Absolute Basophils 0.0 Sodium 144.0 Potassium 3.9 Chloride 105 Carbon Dioxide 26 Anion Gap 13 BUN 16 Creatinine 0.60 Est GFR ( Amer) > 60 Est GFR (Non-Af Amer) > 60 Glucose 173 H Calcium 9.7 09/25/16 13:26 Sputum Gram Stain - Final 09/25/16 13:26 Sputum Sputum Culture - Final C.albicans/C.dubliniensis Normal Desiree Impressions: Chest X-Ray 09/23/16 00:00 IMPRESSION: RIGHT MIDDLE LOBE INFILTRATE CONSISTENT WITH PNEUMONIA. Chest/Abdomen CTA 09/24/16 02:46 IMPRESSION: Small right middle lobar pneumonia. No evidence of pulmonary embolus. 7-[address] recommended. Assessment & Plan - Diagnosis (1) Pneumonia Qualifiers: Pneumonia type: due to unspecified organism Laterality: right Lung location: lower lobe of lung Qualified Code(s): J18.1 - Lobar pneumonia, unspecified organism Is this a current diagnosis for this admission?: YesPlan: Continue broad spectrum antibiotics. Cultures pending (2) COPD with exacerbation Is this a current diagnosis for this admission?: YesPlan: Will continue IV steroids, inhalers and nebulizers. Much improved since yesterday (3) Respiratory distress Is this a current diagnosis for this admission?: Yes (4) Acute respiratory failure with hypoxemia Is this a current diagnosis for this admission?: Yes - Time Time Spent with patient: 25-34 minutes Critical Time spent with patient: 15-24 minutes Medications reviewed and adjusted accordingly: Yes Anticipated discharge: Home Within: within 24 hours
[2016-09-27] MEDS: GUAIFENESIN SYRP 200 MG/10 ML UDC PO PRN (20:32)
[2016-09-27] MEDS: LEVOFLOXACIN 750 MG TABLET PO SCH (21:59)
[2016-09-28] MEDS: IPRATROPIUM/ALBUTEROL 0.5-2.5 MG/3 ML AMPUL NEB SCH ×4 (02:22→20:22)
[2016-09-28] MEDS: HEPARIN SOD (PORCINE) 5,000 UNIT/ML 1 ML SYRINGE SUBCUT SCH ×3 (05:31→21:07)
[2016-09-28] MEDS: GUAIFENESIN SYRP 200 MG/10 ML UDC PO PRN ×2 (05:38→21:19)
--- NOTE | 2016-09-28 10:08 | PDOC PROGRESS REPORT ---
Subjective Progress Note for:: 09/28/16 Subjective:: Patient seen on morning rounds. She is resting in bedside chair. She is coughing and congested at the present time. She just had a breathing treatment. She continues to have some wheezing and coughing . Her cough is now productive . Her oxygen saturations have improved. She denies any chest pain, or dizziness. She denies any vomiting or abdominal pain. She denies any fevers or chills. She denies any other complaints Physical Exam Vital Signs: Temp Pulse Resp BP Pulse Ox 97.5 F 69 20 149/64 H 90 L 09/28/16 03:45 09/28/16 07:00 09/28/16 03:45 09/28/16 03:45 09/28/16 03:45 Intake & Output 09/27/16 09/28/16 09/29/16 06:59 06:59 06:59 Intake Total 2230 1874 Output Total 600 700 Balance 1630 1174 Weight 79.9 kg 79.9 kg General appearance: PRESENT: no acute distress, well-developed, well-nourished Head exam: PRESENT: atraumatic, normocephalic Eye exam: PRESENT: conjunctiva pink, EOMI, PERRLA. ABSENT: scleral icterus Ear exam: PRESENT: normal external ear exam Mouth exam: PRESENT: moist, tongue midline Neck exam: ABSENT: carotid bruit, JVD, lymphadenopathy, thyromegaly Respiratory exam: PRESENT: rhonchi, symmetrical, unlabored, wheezes Cardiovascular exam: PRESENT: RRR. ABSENT: diastolic murmur, rubs, systolic murmur Pulses: PRESENT: normal dorsalis pedis pul Vascular exam: PRESENT: normal capillary refill GI/Abdominal exam: PRESENT: normal bowel sounds, soft. ABSENT: distended, guarding, mass, organolmegaly, rebound, tenderness Rectal exam: PRESENT: deferred Extremities exam: PRESENT: full ROM. ABSENT: calf tenderness, clubbing, pedal edema Neurological exam: PRESENT: alert, awake, oriented to person, oriented to place , oriented to time, oriented to situation, CN II-XII grossly intact. ABSENT: motor sensory deficit Psychiatric exam: PRESENT: appropriate affect, normal mood. ABSENT: homicidal ideation, suicidal ideation Skin exam: PRESENT: dry, intact, warm. ABSENT: cyanosis, rash Results Laboratory Results: 09/27/16 05:34 09/27/16 05:34 09/25/16 13:26 Sputum Gram Stain - Final 09/25/16 13:26 Sputum Sputum Culture - Final C.albicans/C.dubliniensis Normal Desiree Impressions: Chest X-Ray 09/23/16 00:00 IMPRESSION: RIGHT MIDDLE LOBE INFILTRATE CONSISTENT WITH PNEUMONIA. Chest/Abdomen CTA 09/24/16 02:46 IMPRESSION: Small right middle lobar pneumonia. No evidence of pulmonary embolus. 7-[address] recommended. Assessment & Plan - Diagnosis (1) Pneumonia Qualifiers: Pneumonia type: due to unspecified organism Laterality: right Lung location: lower lobe of lung Qualified Code(s): J18.1 - Lobar pneumonia, unspecified organism Is this a current diagnosis for this admission?: YesPlan: Continue broad spectrum antibiotics. Cultures are negative (2) COPD with exacerbation Is this a current diagnosis for this admission?: YesPlan: Will continue IV steroids, inhalers and nebulizers. Much improved since yesterday (3) Respiratory distress Is this a current diagnosis for this admission?: YesPlan: Result. (4) Acute respiratory failure with hypoxemia Is this a current diagnosis for this admission?: YesPlan: Patient required BIPAP at 50% FIO2 initially. She is now off oxygen saturating well on room air - Time Time Spent with patient: 25-34 minutes Smoking Cessation Education: 3 to 10 minutes Anticipated discharge: Home Within: within 24 hours
[2016-09-28] MEDS: PREDNISONE 20 MG TABLET PO SCH ×2 (10:11→17:17)
[2016-09-28] MEDS: GUAIFENESIN 600 MG TABLET.SA PO SCH ×2 (10:11→21:18)
[2016-09-28] MEDS: METOPROLOL TARTRATE 25 MG TABLET PO SCH ×2 (10:11→21:18)
[2016-09-28] MEDS ORDERED: FLUTICASONE NASAL SPRAY 50 MCG/SPRY 120 SPRAY/16 GM NASL ONE (12:00)
[2016-09-28] MEDS: BUDESONIDE/FORMOTEROL 160-4.5 MCG 60 PUFF/6 GM MDI IH SCH (21:17)
[2016-09-28] MEDS: MONTELUKAST SODIUM 10 MG TABLET PO SCH (21:18)
[2016-09-28] MEDS: LEVOFLOXACIN 750 MG TABLET PO SCH (21:19)
[2016-09-29] MEDS: IPRATROPIUM/ALBUTEROL 0.5-2.5 MG/3 ML AMPUL NEB SCH ×4 (01:40→20:51)
[2016-09-29] MEDS: HEPARIN SOD (PORCINE) 5,000 UNIT/ML 1 ML SYRINGE SUBCUT SCH ×3 (05:15→21:52)
[2016-09-29] MEDS: ACETAMINOPHEN 325 MG TABLET PO PRN (08:11)
[2016-09-29] MEDS: METOPROLOL TARTRATE 25 MG TABLET PO SCH ×2 (09:47→21:51)
[2016-09-29] MEDS: PREDNISONE 20 MG TABLET PO SCH ×2 (09:47→17:13)
[2016-09-29] MEDS: GUAIFENESIN 600 MG TABLET.SA PO SCH ×2 (09:47→21:51)
[2016-09-29] MEDS: BUDESONIDE/FORMOTEROL 160-4.5 MCG 60 PUFF/6 GM MDI IH SCH ×2 (09:48→21:51)
[2016-09-29] MEDS: FLUTICASONE NASAL SPRAY 50 MCG/SPRY 120 SPRAY/16 GM NASL SCH (09:49)
--- NOTE | 2016-09-29 13:37 | PDOC PROGRESS REPORT ---
Subjective Progress Note for:: 09/29/16 Subjective:: Patient seen on morning rounds. She is resting in bedside chair. She is coughing and congested at the present time. She just had a breathing treatment. She continues to have some diffuse wheezing and coughing . Her cough is now productive . Her oxygen saturations have improved. She denies any chest pain, or dizziness. She denies any vomiting or abdominal pain. She denies any fevers or chills. She denies any other complaints Physical Exam Vital Signs: Temp Pulse Resp BP Pulse Ox 97.4 F 63 16 166/76 H 92 09/29/16 08:01 09/29/16 08:05 09/29/16 08:05 09/29/16 08:01 09/29/16 08:05 Intake & Output 09/28/16 09/29/16 09/30/16 06:59 06:59 06:59 Intake Total 1874 2750 Output Total 700 1550 Balance 1174 1200 Weight 79.9 kg 80.1 kg General appearance: PRESENT: no acute distress, well-developed, well-nourished Head exam: PRESENT: atraumatic, normocephalic Eye exam: PRESENT: conjunctiva pink, EOMI, PERRLA. ABSENT: scleral icterus Ear exam: PRESENT: normal external ear exam Mouth exam: PRESENT: moist, tongue midline Neck exam: ABSENT: carotid bruit, JVD, lymphadenopathy, thyromegaly Respiratory exam: PRESENT: symmetrical, unlabored, wheezes. ABSENT: rales, rhonchi Cardiovascular exam: PRESENT: RRR. ABSENT: diastolic murmur, rubs, systolic murmur Pulses: PRESENT: normal dorsalis pedis pul Vascular exam: PRESENT: normal capillary refill GI/Abdominal exam: PRESENT: normal bowel sounds, soft. ABSENT: distended, guarding, mass, organolmegaly, rebound, tenderness Rectal exam: PRESENT: deferred Extremities exam: PRESENT: full ROM. ABSENT: calf tenderness, clubbing, pedal edema Neurological exam: PRESENT: alert, awake, oriented to person, oriented to place , oriented to time, oriented to situation, CN II-XII grossly intact. ABSENT: motor sensory deficit Psychiatric exam: PRESENT: appropriate affect, normal mood. ABSENT: homicidal ideation, suicidal ideation Skin exam: PRESENT: dry, intact, warm. ABSENT: cyanosis, rash Results Laboratory Results: 09/27/16 05:34 09/27/16 05:34 Impressions: Chest X-Ray 09/23/16 00:00 IMPRESSION: RIGHT MIDDLE LOBE INFILTRATE CONSISTENT WITH PNEUMONIA. Chest/Abdomen CTA 09/24/16 02:46 IMPRESSION: Small right middle lobar pneumonia. No evidence of pulmonary embolus. 7-[address] recommended. Assessment & Plan - Diagnosis (1) Pneumonia Qualifiers: Pneumonia type: due to unspecified organism Laterality: right Lung location: lower lobe of lung Qualified Code(s): J18.1 - Lobar pneumonia, unspecified organism Is this a current diagnosis for this admission?: YesPlan: Continue broad spectrum antibiotics. Cultures are negative (2) COPD with exacerbation Is this a current diagnosis for this admission?: YesPlan: Will continue IV steroids, inhalers and nebulizers. Much improved since yesterday (3) Respiratory distress Is this a current diagnosis for this admission?: YesPlan: Resolved (4) Acute respiratory failure with hypoxemia Is this a current diagnosis for this admission?: YesPlan: Patient required BIPAP at 50% FIO2 initially. She is now off oxygen saturating well on room air. Hopefully wheezing continues to improve and we can discharge her in the next 1-2 days - Time Time Spent with patient: 25-34 minutes Medications reviewed and adjusted accordingly: Yes Anticipated discharge: Home - Inpatient Certification Based on my medical assessment, after consideration of the patient's comorbidities, presenting symptoms, or acuity I expect that the services needed warrant INPATIENT care.: Yes I certify that my determination is in accordance with my understanding of Medicare's requirements for reasonable and necessary INPATIENT services [42 CFR 412.3e].: Yes
[2016-09-29] MEDS: LEVOFLOXACIN 750 MG TABLET PO SCH (21:51)
[2016-09-29] MEDS: MONTELUKAST SODIUM 10 MG TABLET PO SCH (21:51)
[2016-09-30] MEDS: IPRATROPIUM/ALBUTEROL 0.5-2.5 MG/3 ML AMPUL NEB SCH ×3 (01:58→14:00)
[2016-09-30] MEDS: HEPARIN SOD (PORCINE) 5,000 UNIT/ML 1 ML SYRINGE SUBCUT SCH ×2 (05:15→14:34)
[2016-09-30] MEDS: PREDNISONE 20 MG TABLET PO SCH ×2 (09:42→17:24)
[2016-09-30] MEDS: METOPROLOL TARTRATE 25 MG TABLET PO SCH (09:42)
[2016-09-30] MEDS: FLUTICASONE NASAL SPRAY 50 MCG/SPRY 120 SPRAY/16 GM NASL SCH (09:43)
[2016-09-30] MEDS: BUDESONIDE/FORMOTEROL 160-4.5 MCG 60 PUFF/6 GM MDI IH SCH (09:43)
[2016-09-30] MEDS: GUAIFENESIN 600 MG TABLET.SA PO SCH (09:43)
[2016-09-30 16:03] VITALS: BP 148/63
--- NOTE | 2016-09-30 16:24 | PDOC DISCHARGE SUMMARY ---
General - Admit/Disc Date/PCP Admission Date/Primary Care Provider: 09/24/16 04:47 Discharge Date: 09/30/16 - Discharge Diagnosis (1) Right lower lobe pneumonia Is this a current diagnosis for this admission?: Yes (2) COPD with exacerbation Is this a current diagnosis for this admission?: Yes (3) Acute respiratory failure with hypoxemia Is this a current diagnosis for this admission?: Yes (4) Hypertension Is this a current diagnosis for this admission?: Yes - Additional Information Resuscitation Status: Full Code Discharge Diet: As Tolerated Discharge Activity: Activity As Tolerated Home Medications: Albuterol Sulfate [Proair HFA Inhalation Aerosol 8.5 gm MDI] 2 puff IH Q4HP PRN 09/24/16 Albuterol Sulfate [Ventolin 0.083% Neb 2.5 mg/3 mL Ampul] 3 ml NEB RTTID Fluticasone/Vilanterol [Breo Ellipta 100-25 Mcg INH] 1 puff IH DAILY 09/24/16 Metoprolol Tartrate [Lopressor 25 mg Tablet] 25 mg PO Q12 09/24/16 Budesonide/Formoterol Fumarate [Symbicort HFA 160-4.5 mcg Inhaler 6 gm] 2 puff IH Q12 #1 inhaler 09/30/16 Fluticasone Propionate [Flonase Nasal [place] 50 Mcg/[place] 16 gm] 2 spray NASL Q12H #1 spray.pump 09/30/16 Levofloxacin [Levaquin 750 mg Tablet] 750 mg PO QHS #3 tablet 09/30/16 Montelukast Sodium [Singulair 10 mg Tablet] 10 mg PO QHS #30 tablet 09/30/16 Prednisone [Deltasone 10 mg Tablet] 10 mg PO ASDIR PRN #21 tablet 09/30/16 History of Present Illness Patient complains of: Shortness of breath and cough History of Present Illness: ADDIE STEWART is a 56 year old female with a past medical history of COPD and nasal polyps and been her usual state of health until approximately 6 weeks ago with shortness of breath. Who is seen yesterday at [facility]. for shortness of breath and cough she was diagnosed with pneumonia and given a prescription of doxycycline however the patient has persistent worsening. She comes to emergency room for a reevaluation where she's found to be tachypneic and hypoxic requiring BiPAP at 50% a chest x-ray shows right-sided infiltrate she denies previous episode or coughing while eating. Denies infectious contacts, or changes in her medication regiment with exception to doxycycline. Hospital Course Hospital Course: The patient was admitted to continuous telemetry unit. The patient was placed on scheduled nebs, IV antibiotic coverage, expectorants, supplemental O2, senna spirometry and flutter valve. Sputum culture was obtained with no growth. The patient was also started on steroids given wheezing and underlying COPD. The patient was transitioned back to baseline oxygen. The patient is able to ambulate without issue and is able to fully complete sentences. The patient's symptoms continue to improve and she is ready for discharge. Physical Exam Vital Signs: Temp Pulse Resp BP Pulse Ox 97.9 F 94 19 148/63 H 95 09/30/16 15:28 09/30/16 15:28 09/30/16 15:28 09/30/16 15:28 09/30/16 15:28 Intake & Output 09/28/16 09/29/16 09/30/16 23:59 23:59 23:59 Intake Total 2670 1150 1640 Output Total 500 2150 Balance 2170 -1000 1640 Weight 79.9 kg 80.1 kg 80.8 kg General appearance: PRESENT: no acute distress, cooperative, well-developed, well-nourished Head exam: PRESENT: atraumatic, normocephalic Eye exam: PRESENT: conjunctiva pink, EOMI, PERRLA. ABSENT: scleral icterus Ear exam: PRESENT: normal external ear exam Mouth exam: PRESENT: moist, tongue midline Neck exam: ABSENT: carotid bruit, JVD, lymphadenopathy, thyromegaly Respiratory exam: PRESENT: decreased breath sounds, symmetrical, unlabored. ABSENT: rales, rhonchi, tachypnea, wheezes Cardiovascular exam: PRESENT: RRR. ABSENT: diastolic murmur, rubs, systolic murmur Pulses: PRESENT: normal dorsalis pedis pul Vascular exam: PRESENT: normal capillary refill GI/Abdominal exam: PRESENT: normal bowel sounds, soft. ABSENT: distended, guarding, mass, organolmegaly, rebound, tenderness Rectal exam: PRESENT: deferred Extremities exam: PRESENT: full ROM. ABSENT: calf tenderness, clubbing, pedal edema Neurological exam: PRESENT: alert, awake, oriented to person, oriented to place , oriented to time, oriented to situation, CN II-XII grossly intact. ABSENT: motor sensory deficit Psychiatric exam: PRESENT: appropriate affect, normal mood. ABSENT: homicidal ideation, suicidal ideation Skin exam: PRESENT: dry, intact, warm. ABSENT: cyanosis, rash Results Laboratory Results: Labs- Last Values WBC 6.9 10^3/uL (4.0-10.5) 09/27/16 05:34 RBC 4.53 10^6/uL (3.72-5.28) 09/27/16 05:34 Hgb 11.9 g/dL (12.0-15.5) L 09/27/16 05:34 Hct 35.5 % (36.0-47.0) L 09/27/16 05:34 MCV 78 fl (80-97) L 09/27/16 05:34 MCH 26.3 pg (27.0-33.4) L 09/27/16 05:34 MCHC 33.6 g/dL (32.0-36.0) 09/27/16 05:34 RDW 14.6 % (11.5-14.0) H 09/27/16 05:34 Plt Count 357 10^3/uL (150-450) 09/27/16 05:34 Seg Neutrophils % 83.1 % (42-78) H 09/27/16 05:34 Lymphocytes % 11.6 % (13-45) L 09/27/16 05:34 Monocytes % 4.9 % (3-13) 09/27/16 05:34 Eosinophils % 0.0 % (0-6) 09/27/16 05:34 Basophils % 0.4 % (0-2) 09/27/16 05:34 Absolute Neutrophils 5.7 10^3/uL (1.7-8.2) 09/27/16 05:34 Absolute Lymphocytes 0.8 10^3/uL (0.5-4.7) 09/27/16 05:34 Absolute Monocytes 0.3 10^3/uL (0.1-1.4) 09/27/16 05:34 Absolute Eosinophils 0.0 10^3/uL (0.0-0.6) 09/27/16 05:34 Absolute Basophils 0.0 10^3/uL (0.0-0.2) 09/27/16 05:34 VBG pH 7.42 (7.30-7.42) 09/24/16 00:10 VBG pCO2 47.4 mmHg (35-63) 09/24/16 00:10 VBG HCO3 29.7 mmol/L (20-32) 09/24/16 00:10 VBG Base Excess 4.2 mmol/L 09/24/16 00:10 Sodium 144.0 mmol/L (137-145) 09/27/16 05:34 Potassium 3.9 mmol/L (3.6-5.0) 09/27/16 05:34 Chloride 105 mmol/L (98-107) 09/27/16 05:34 Carbon Dioxide 26 mmol/L (22-30) 09/27/16 05:34 Anion Gap 13 (5-19) 09/27/16 05:34 BUN 16 mg/dL (7-20) 09/27/16 05:34 Creatinine 0.60 mg/dL (0.52-1.25) 09/27/16 05:34 Est GFR ( Amer) > 60 (>60) 09/27/16 05:34 Est GFR (Non-Af Amer) > 60 (>60) 09/27/16 05:34 Glucose 173 mg/dL (75-110) H 09/27/16 05:34 Calcium 9.7 mg/dL (8.4-10.2) 09/27/16 05:34 Total Bilirubin 0.9 mg/dL (0.2-1.3) 09/24/16 00:10 Direct Bilirubin 0.0 mg/dL (0.0-0.3) 09/24/16 00:10 AST 25 U/L (14-36) 09/24/16 00:10 ALT 32 U/L (9-52) 09/24/16 00:10 Alkaline Phosphatase 124 U/L (38-126) 09/24/16 00:10 Total Protein 8.0 g/dL (6.3-8.2) 09/24/16 00:10 Albumin 4.7 g/dL (3.5-5.0) 09/24/16 00:10 Impressions: Chest X-Ray 09/23/16 00:00 IMPRESSION: RIGHT MIDDLE LOBE INFILTRATE CONSISTENT WITH PNEUMONIA. Chest/Abdomen CTA 09/24/16 02:46 IMPRESSION: Small right middle lobar pneumonia. No evidence of pulmonary embolus. 7-[address] recommended. Qualifiers PATEINT BEING DISCHARGED WITH ANY OF THE FOLLOWING DIAGNOSIS?: No Plan Discharge Plan: The patient is to followup with their primary care provider, within one week for hospital followup regarding COPD exacerbation and pneumonia. Time Spent: Less than 30 Minutes
== END 2016-09-30 19:55 | disposition home or self-care (01) | DRG 190 ==
LOC: ER 21:30 → EH 09-24 04:47 → 4S 09-24 22:00 → UNDODISIN 09-30 17:30
PROVIDERS: ADMIT Internal Medicine; ATTEND Internal Medicine
PROC: 5A09357 Assistance with Respiratory Ventilation, Less than 24 Consecutive Hours, Continuous Positive Airway Pressure (ICD-10-PCS; principal; 2016-09-24)
PROC: 3E0F73Z Introduction of Anti-inflammatory into Respiratory Tract, Via Natural or Artificial Opening (ICD-10-PCS; 2016-09-24)
DX: J44.0 Chronic obstructive pulmonary disease with (acute) lower respiratory infection (principal); J18.1 Lobar pneumonia, unspecified organism; J96.01 Acute respiratory failure with hypoxia; J44.1 Chronic obstructive pulmonary disease with (acute) exacerbation; I10 Essential (primary) hypertension; J33.9 Nasal polyp, unspecified; Z88.8 Allergy status to other drugs, medicaments and biological substances; Z79.899 Other long term (current) drug therapy; Z83.6 Family history of other diseases of the respiratory system; Z82.49 Family history of ischemic heart disease and other diseases of the circulatory system
CPT/HCPCS: 36415; 71020; 71275; 80048; 80053; 82803; 85025; 87040; 87070; 87205; 93005; 93010; 94640; 94660; 94799; 96365; 96366; 96367; 96375; 99285; J0692; J1644; J1956; J2930; J3475; J3490; J7030; J7512; J7620; S0119

== ENCOUNTER 2016-11-06 13:28 | Emergency (ER) | payer SELFPAY ==
--- NOTE | 2016-11-06 15:04 | ER Document Report ---
ED General - General Mode of Arrival: Ambulatory Information source: Patient TRAVEL OUTSIDE OF THE [place] IN LAST 30 DAYS: No - HPI Onset: Other - see HPI note Similar symptoms previously: Yes Recently seen / treated by doctor: No - General Chief Complaint: Cough Stated Complaint: COUGH,DIARRHEA Notes: Patient is a 56-year-old female presenting to the emergency department for chills, fever, congestion, and productive cough. Patient was hospitalized and discharged for pneumonia last month. 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 Patient states that she takes Claritin for her allergy medication and also has a history of hypertension. Patient states she was being prescribed medication by [employer] but lost her insurance when she had to quit her job. 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 (DANIELLA NEWBY) - Related Data Allergies/Adverse Reactions: benzonatate [From Tesjacque Blanco] Allergy (Verified 11/06/16 16:41) NSAIDS (Non-Steroidal Anti-Inflamma Allergy (Verified 11/06/16 16:41) Past Medical History - General Information source: Patient - Social History Smoking Status: Unknown if Ever Smoked Family History: COPD, Hypertension Patient has suicidal ideation: No Patient has homicidal ideation: No Pulmonary Medical History: Reports: Hx COPD, Hx Pneumonia - Immunizations Hx Diphtheria, Pertussis, Tetanus Vaccination: Yes Review of Systems - Review of Systems Constitutional: No symptoms reported EENT: No symptoms reported Cardiovascular: No symptoms reported Respiratory: No symptoms reported Gastrointestinal: No symptoms reported Genitourinary: No symptoms reported Female Genitourinary: No symptoms reported Musculoskeletal: No symptoms reported Skin: No symptoms reported Hematologic/Lymphatic: No symptoms reported Neurological/Psychological: No symptoms reported -: Yes All other systems reviewed and negative Physical Exam - Vital signs Interpretation: Normal - General General appearance: Appears well, Alert In distress: Mild - HEENT Head: Normocephalic, Atraumatic, Other Eyes: Normal, Other - itchy watery eyes Pupils: PERRL Nasal: Clear rhinorrhea Mucous membranes: Moist - Respiratory Respiratory status: No respiratory distress Chest status: Nontender Breath sounds: Normal, Productive cough Chest palpation: Normal - Cardiovascular Rhythm: Regular Heart sounds: Normal auscultation Murmur: No - Abdominal Inspection: Normal Distension: No distension Bowel sounds: Normal Tenderness: Nontender Organomegaly: No organomegaly - Back Back: Normal, Nontender - Extremities General upper extremity: Normal inspection, Normal ROM, Normal strength General lower extremity: Normal inspection, Normal ROM, Normal strength - Neurological Neuro grossly intact: Yes Cognition: Normal Orientation: AAOx4 [place] Coma Scale Eye Opening: Spontaneous [place] Coma Scale Verbal: Oriented [place] Coma Scale Motor: Obeys Commands [place] Coma Scale Total: 15 Speech: Normal - Psychological Associated symptoms: Normal affect, Normal mood - Skin Skin Temperature: Warm Skin Moisture: Dry Course - Re-evaluation Re-evalutation: 11/06/16 16 presents emergency, chief plain cough runny nose congestion or allergies are bothering her. She was admitted last month or pneumonia discharged home. She says that she does not any longer have a primary care physician she denies any fevers chills shortness of breath chest pain pressure or exertional component. On examination, runny nose itchy watery eyes and nasal congestion. She is otherwise lungs are clear pulse ox is 96-97% on room air and she is in no respiratory distress chest x-ray shows nearly resolving pneumonia in the same spot as before much smaller. At this time to start her on Augmentin but I told her nurse family member that are healing the admitting give her the clinic to follow-up and she is going to need to continue to follow-up and have an x-ray to determine that the pneumonia completely resolves. I explained to them that there could be a tumor or mass behind pneumonia that you can't see any need to have an x-ray that shows complete resolution. For this I would recommend a repeat chest x-ray in one to 2 weeks if there is a persistent structure that they're calling pneumonia or infiltrate on their she may need a CT of the chest to exclude lung cancer they verbalize understanding of this and are discharged in stable condition (EDGARDO ZAVALA) - Vital Signs Vital signs: Temp Pulse Resp BP Pulse Ox 98.5 F 98 20 150/80 H 93 11/06/16 16:40 11/06/16 16:40 11/06/16 16:40 11/06/16 16:40 11/06/16 16:40 Discharge - Discharge Clinical Impression: resolving pneumonia Condition: Stable Disposition: HOME, SELF-CARE Additional Instructions: PNEUMONIA: Your examination indicates that you have pneumonia. This is an infection of the lung tissue, usually caused by bacteria or a virus. Symptoms include cough, fever, shaking chills, chest pain, shortness of breath, and coughing up bloody sputum. Treatment for bacterial pneumonia includes rest, antibiotics for 10 to 14 days, increasing your clear liquid intake, a cool mist humidifier at your bedside, and fever medication. Often, a repeat chest X-ray is performed in a few weeks--even if you feel better--to ascertain whether the infection has completely resolved and no underlying lung problem is present. You should call the physician if you develop persistent vomiting, high fever that does not respond to fever medication, increasing shortness of breath , confusion, or lethargy. Also, failure to improve within two to three days is an indication for re-examination. ANTIBIOTIC INJECTION: You have been given an antibiotic injection. Sometimes the injection must be combined with antibiotic pills. For some infections, the shot provides all the antibiotic that's needed. Common side effects of antibiotics include nausea, intestinal cramping, or diarrhea. These are very unusual following a shot. Women may develop vaginal yeast infections, and babies can get yeast ( thrush) in the mouth following the use of antibiotics. Contact your physician if you develop significant side effects from this medication. Allergy to this antibiotic can result in hives, wheezing, faintness, or itching. If symptoms of allergy occur, call the doctor at once. ANTIBIOTIC THERAPY: You have been given an antibiotic prescription. It's important that you take all the medication, unless instructed otherwise by your physician. Failure to complete the entire course can result in relapse of your condition. Common side effects of antibiotics include nausea, intestinal cramping, or diarrhea. Women may develop vaginal yeast infections, and babies can get yeast (thrush) in the mouth following the use of antibiotics. Contact your physician if you develop significant side effects from this medication. Allergy to this antibiotic can result in hives, wheezing, faintness, or itching. If symptoms of allergy occur, stop the medication and call the doctor. USE OF ACETAMINOPHEN (Tylenol): Acetaminophen may be taken for pain relief or fever control. It's much safer than aspirin, offering a wider range of "safe" dosages. It is safe during . Some brand names are Tylenol, Panadol, Datril, Anacin 3, Tempra, and Liquiprin. Acetaminophen can be repeated every four hours. The following are maximum recommended dosages: WEIGHT Dose Drops Elixir Chewable( 80mg) (LBS.) drprs=droppers tsp=teaspoon 6 40 mg 0.4 ml (1/2) 6-11 80 mg 0.8 ml (full) tsp 1 tab 12-16 120 mg 1 1/2 drprs 3/4 tsp 1 1/2 tabs 17-23 160 mg 2 drprs 1 tsp 2 tabs 24-30 240 mg 3 drprs 1 1/2 tsp 3 tabs 30-35 320 mg 2 tsp 4 tabs 36-41 360 mg 2 1/4 tsp 4 1/2 tabs 42-47 400 mg 2 1/2 tsp 5 tabs 48-53 480 mg 3 tsp 6 tabs 54-59 520 mg 3 1/4 tsp 6 1/2 tabs 60-64 560 mg 3 1/2 tsp 7 tabs 65-70 600 mg 3 3/4 tsp 7 1/2 tabs 71-76 640 mg 4 tsp 8 tabs 77-82 720 mg 4 1/2 tsp 9 tabs 83-88 800 mg 5 tsp 10 tabs >89 pounds or adults 650 mg to 900 mg Acetaminophen can be repeated every four hours. Maximum dose not to exceed 4000 mg a day. These maximum recommended dosages are slightly higher than the dosages written on the product container, but these dosages are very safe and below the toxic dosage for acetaminophen. FOLLOW-UP CARE: If you have been referred to a physician for follow-up care, call the physician s office for an appointment as you were instructed or within the next two days. If you experience worsening or a significant change in your symptoms, notify the physician immediately or return to the Emergency Department at any time for re-evaluation. Prescriptions: Amox Tr/Potassium Clavulanate [Augmentin 875-125 Tablet] 1 tab PO BID 10 Days Referrals: [facility] [Provider Group] - Follow up in 3-5 days (Call he got home for an appointment to be seen in 2-3 days return for increasing worsening or new symptoms) Scribe Attestation: 11/06/16 16:43 I personally performed the services described in the documentation reviewed the documentation recorded by my scribe in my presence and it accurately and completely records my words and actions (EDGARDO ZAVALA) Scribe Documentation - Scribe Written by Scribe:: Daniella Newby 11/06/16 17:41 acting as scribe for :: Иван
[2016-11-06 16:42] VITALS: BP 150/80
== END 2016-11-06 16:52 | disposition home or self-care (01) ==
LOC: ER 13:28
DX: J18.9 Pneumonia, unspecified organism (principal); R05 Cough; R19.7 Diarrhea, unspecified; R09.81 Nasal congestion; R50.9 Fever, unspecified
CPT/HCPCS: 71020; 99284

== ENCOUNTER 2016-12-10 23:14 | Inpatient (IN) | payer SELFPAY ==
[2016-12-11] MEDS ORDERED: MAGNESIUM SULFATE/D5W 100 ML IV ONE (00:37)
[2016-12-11] MEDS ORDERED: ALBUTEROL SULFATE 0.083% NEB 2.5 MG/3 ML AMPUL NEB ONE (00:37)
[2016-12-11] MEDS ORDERED: IPRATROPIUM/ALBUTEROL 0.5-2.5 MG/3 ML AMPUL NEB ONE ×2 (00:37→03:11)
[2016-12-11] MEDS ORDERED: NORMAL SALINE 500 ML IV ONE (00:37)
--- NOTE | 2016-12-11 01:19 | RADIOLOGY REPORT (SQ) ---
EXAM DESCRIPTION: CHEST SINGLE VIEW COMPLETED DATE/TIME: 12/11/2016 12:46 am REASON FOR STUDY: difficulty breathing COMPARISON: Chest x-ray 11/06/2016, 09/23/2016. CTA chest 09/24/2016. EXAM PARAMETERS: NUMBER OF VIEWS: One view. TECHNIQUE: Single frontal radiographic view of the chest acquired. RADIATION DOSE: NA LIMITATIONS: None. FINDINGS: LUNGS AND PLEURA: Ground-glass opacity in the right middle lobe. No pneumothorax or pleur al effusion. MEDIASTINUM AND HILAR STRUCTURES: No masses. Contour normal. HEART AND VASCULAR STRUCTURES: Heart normal in size. No overt vascular congestion. BONES: No acute findings. HARDWARE: None in the chest. IMPRESSION: Ground-glass opacity in the right middle lobe, may represent atelectasis or pneumonia. Radiographic followup recommended. TECHNICAL DOCUMENTATION: JOB ID: [id number]
[2016-12-11 01:29] LABS: ABSOLUTE BASOPHILS # (AUTO) 0.1 10^3/uL (0.0-0.2); ABSOLUTE EOSINOPHILS # (AUTO) 0.8 10^3/uL (0.0-0.6); ABSOLUTE LYMPHOCYTES (AUTO) 2.2 10^3/uL (0.5-4.7); ABSOLUTE NEUT (AUTO) 5.1 10^3/uL (1.7-8.2); BASOPHILS % (AUTO) 0.9 % (0-2); HEMATOCRIT 38.3 % (36.0-47.0); HEMOGLOBIN 12.8 g/dL (12.0-15.5); HGB HCT DIFFERENCE 0.1; LYMPHOCYTES % (AUTO) 24.3 % (13-45); MEAN CORPUSCULAR HEMOGLOBIN 25.8 pg (27.0-33.4); MEAN CORPUSCULAR HGB CONC 33.3 g/dL (32.0-36.0); MEAN CORPUSCULAR VOLUME 77 fl (80-97); MONOCYTES % (AUTO) 10.7 % (3-13); RED BLOOD COUNT 4.95 10^6/uL (3.72-5.28); RED CELL DISTRIBUTION WIDTH 14.3 % (11.5-14.0); SEGMENTED NEUTROPHILS % (AUTO) 55.1 % (42-78); WHITE BLOOD COUNT 9.2 10^3/uL (4.0-10.5)
[2016-12-11] MEDS ORDERED: LEVOFLOXACIN 500 MG/D5W RTU 100 ML IV ONE (01:37)
[2016-12-11 01:51] LABS: ALANINE AMINOTRANSFERASE 30 U/L (9-52); ALKALINE PHOSPHATASE 119 U/L (38-126); ANION GAP 11 (5-19); ASPARTATE AMINO TRANSFERASE 25 U/L (14-36); BILIRUBIN,DIRECT 0.3 mg/dL (0.0-0.4); BILIRUBIN,TOTAL 0.6 mg/dL (0.2-1.3); BLOOD UREA NITROGEN 13 mg/dL (7-20); CALCIUM 9.8 mg/dL (8.4-10.2); CARBON DIOXIDE 26 mmol/L (22-30); CHLORIDE 108 mmol/L (98-107); CREATININE RESULT 0.66 mg/dL (0.52-1.25); GLUCOSE 102 mg/dL (75-110); POTASSIUM 3.8 mmol/L (3.6-5.0); SODIUM 145.2 mmol/L (137-145); TOTAL PROTEIN 7.1 g/dL (6.3-8.2)
[2016-12-11] MEDS ORDERED: CEFEPIME 1 GM/D5W RTU 50 ML IV ONE (02:28)
[2016-12-11 03:06] LABS: APPEARANCE,URINE CLEAR; BILIRUBIN,URINE NEGATIVE (NEGATIVE); GLUCOSE, URINE NEGATIVE (NEGATIVE); KETONES,URINE NEGATIVE (NEGATIVE); LEUKOCYTE ESTERASE,URINE NEGATIVE (NEGATIVE); NITRITE,URINE NEGATIVE (NEGATIVE); PROTEIN,URINE NEGATIVE (NEGATIVE); URINE SPECIFIC GRAVITY 1.008; UROBILINOGEN,URINE NEGATIVE mg/dL (<2.0)
[2016-12-11] MEDS ORDERED: CEFEPIME 1 GM/D5W RTU 1 GM/50 ML RTUPB IV ONE (03:13)
--- NOTE | 2016-12-11 04:16 | ER Document Report ---
ED General - General Chief Complaint: Shortness Of Breath Stated Complaint: DIFFICULTY BREATHING Time Seen by Provider: 12/11/16 00:37 TRAVEL OUTSIDE OF THE [place] IN LAST 30 DAYS: No - HPI Patient complains to provider of: Difficulty in breathing Notes: Patient coming in for difficulty breathing starting approximately 448 hours prior to arrival. Patient states no fevers no chills no recent travel. Patient states a history of COPD. Patient with recent admission in September for her COPD exacerbation with pneumonia. Patient states cough that is productive. Upon evaluation patient is tachycardic with tachypnea. - Related Data Allergies/Adverse Reactions: benzonatate [From TessalArkmicro] Allergy (Verified 11/06/16 16:41) NSAIDS (Non-Steroidal Anti-Inflamma Allergy (Verified 11/06/16 16:41) Past Medical History - Social History Smoking Status: Never Smoker Chew tobacco use (# tins/day): No Frequency of alcohol use: None Drug Abuse: None Family History: COPD, Hypertension Patient has suicidal ideation: No Patient has homicidal ideation: No - Past Medical History Cardiac Medical History: Reports: Hx Hypertension Pulmonary Medical History: Reports: Hx COPD, Hx Pneumonia Renal/ Medical History: Denies: Hx Peritoneal Dialysis Surgical Hx: Negative - Immunizations Hx Diphtheria, Pertussis, Tetanus Vaccination: Yes Review of Systems - Review of Systems Constitutional: No symptoms reported EENT: No symptoms reported Cardiovascular: No symptoms reported Respiratory: Cough, Sputum, Wheezing Gastrointestinal: No symptoms reported Genitourinary: No symptoms reported Female Genitourinary: No symptoms reported Musculoskeletal: No symptoms reported Skin: No symptoms reported Hematologic/Lymphatic: No symptoms reported Neurological/Psychological: No symptoms reported -: Yes All other systems reviewed and negative Physical Exam - Vital signs Vitals: Temp Pulse Resp BP Pulse Ox 98.3 F 118 H 20 172/89 H 96 12/10/16 23:17 12/10/16 23:17 12/10/16 23:17 12/10/16 23:17 12/10/16 23:17 Interpretation: Tachycardic, Tachypneic - General General appearance: Appears well, Alert - HEENT Head: Normocephalic, Atraumatic Eyes: Normal Pupils: PERRL - Respiratory Respiratory status: No respiratory distress Chest status: Nontender Breath sounds: Wheezing Chest palpation: Normal - Cardiovascular Rhythm: Regular Heart sounds: Normal auscultation Murmur: No - Abdominal Inspection: Normal Distension: No distension Bowel sounds: Normal Tenderness: Nontender Organomegaly: No organomegaly - Back Back: Normal, Nontender - Extremities General upper extremity: Normal inspection, Nontender, Normal color, Normal ROM , Normal temperature General lower extremity: Normal inspection, Nontender, Normal color, Normal ROM , Normal temperature, Normal weight bearing. No: Eleni's sign - Neurological Neuro grossly intact: Yes Cognition: Normal Orientation: AAOx4 [place] Coma Scale Eye Opening: Spontaneous [place] Coma Scale Verbal: Oriented [place] Coma Scale Motor: Obeys Commands [place] Coma Scale Total: 15 Speech: Normal Motor strength normal: LUE, RUE, LLE, RLE Sensory: Normal - Psychological Associated symptoms: Normal affect, Normal mood - Skin Skin Temperature: Warm Skin Moisture: Dry Skin Color: Normal Course - Re-evaluation Re-evalutation: 12/11/16 04:14 Patient's chest x-ray showed right lower lobe pneumonia. Will start patient on cefepime and Levaquin. Patient had multiple breathing treatments. Patient still continues to have some tachypnea with minimal improvement. Wheezing on examination has improved. Patient will undergo CTA more likely will be admitted for COPD with pneumonia. 12/11/16 05:20 CTA negative. Patient currently pending admission - Vital Signs Vital signs: Temp Pulse Resp BP Pulse Ox 98.7 F 99 18 148/74 H 95 12/11/16 05:01 12/11/16 04:00 12/11/16 05:01 12/11/16 05:01 12/11/16 05:01 - Laboratory Result Diagrams: 12/11/16 01:05 12/11/16 01:05 Laboratory results interpreted by me: 12/11/16 12/11/16 01:05 01:05 MCV 77 L MCH 25.8 L RDW 14.3 H Eosinophils % 9.0 H Absolute Eosinophils 0.8 H Sodium 145.2 H Chloride 108 H Discharge - Discharge Clinical Impression: COPD with exacerbation Pneumonia Qualifiers: Pneumonia type: due to unspecified organism Laterality: right Lung location: middle lobe of lung Qualified Code(s): J18.1 - Lobar pneumonia, unspecified organism Condition: Good Disposition: ADMITTED INPATIENT Admitting Provider: [facility] Admitted: Telemetry
--- NOTE | 2016-12-11 04:38 | RADIOLOGY REPORT (SQ) ---
EXAM DESCRIPTION: CTA CHEST COMPLETED DATE/TIME: 12/11/2016 4:14 am REASON FOR STUDY: sob tachy . Shortness of breath. COMPARISON: CT angiogram chest 09/24/2016. TECHNIQUE: CT scan of the chest performed using helical scanning technique with dynamic intravenous contrast injection. Images reviewed with lung, soft tissue and bone windows. Reconstructed coronal and sagittal MPR images reviewed. Additional 3 dimensional post-processing performed to develop Maximal Intensity Projection images (MD P). All images stored on PACS. All CT scanners at this facility use dose modulation, iterative reconstruction, and/or weight based d osing when appropriate to reduce radiation dose to as low as reasonably achievable (ALARA). [facility]: Dose Right [facility]: CareDose [facility]: Dose Right [facility]: Teradose 4D [facility]: CloudCase CONTRAST TYPE AND DOSE: 100 mL Isovue 370- low osmolar. RENAL FUNCTION: Creatinine 0.66 RADIATION DOSE: 16.54 mGy. LIMITATIONS: Motion artifact. FINDINGS: LUNGS AND PLEURA: Persistent consolidation/atelectasis with air bronchograms and volume lo ss in the right middle lobe. Mild atelectasis in the left lower lobe. There is a 5 mm pulmonary nod ule at the left lung apex (image 24/101), not significantly changed in the interval. No pleural effu manan or pneumothorax. AORTA AND GREAT VESSELS: No thoracic aortic aneurysm or dissection. HEART: No pericardial effusion. PULMONARY ARTERIES: No emboli visualized in the main pulmonary arteries or the segmental branches. HILAR AND MEDIASTINAL STRUCTURES: No identified masses or pathologically enlarged lymph nodes. HARDWARE: None in the chest. UPPER ABDOMEN: Scattered hypodensities within the visualized liver the largest measuring 5.3 x 5.1 cm in the right hepatic lobe, may represent cysts. THYROID AND OTHER SOFT TISSUES: No masses. No adenopathy. BONES: Multilevel degenerative changes in the spine. 3D MIPS: Confirm above findings. IMPRESSION: No pulmonary emboli. Persistent atelectasis/consolidation with air bronchograms and volume loss in the right middle lobe. Mild left basilar atelectasis. 5 mm pulmonary nodule in the left upper lobe. Followup as per patient's risk factors. COMMENT: FLEISCHNER CRITERIA FOR FOLLOW-UP OF PULMONARY NODULES Incidentally detected new nodules in persons 35 or older. HIGH RISK: History of smoking or other known risk factors. <6mm single solid nodule: LOW RISK: no routine followup. HIGH RISK: optional CT 12 mo. TECHNICAL DOCUMENTATION: JOB ID: [id number] CO- Quality ID # [id number]: Final reports with documentation of one or more dose reduction techniques (e.g., Au tomated exposure control, adjustment of the mA and/or kV according to patient size, use of iterative reconstruction technique) 2010 [employer]- All Rights Reserved
[2016-12-11] MEDS ORDERED: ACETAMINOPHEN 325 MG TABLET PO PRN ×2 (08:55→12:49)
[2016-12-11] MEDS ORDERED: ONDANSETRON 4 MG TAB.RAPDIS PO PRN ×2 (08:55→12:57)
--- NOTE | 2016-12-11 09:43 | HISTORY AND PHYSICAL E ---
History and Physical NAME: ADDIE STEWART : 1960 AGE: 56Y ADMITTED: 12/11/2016 ROOM: ED21 CODE STATUS: FULL CODE. PRIMARY CARE PROVIDER: [facility] CHIEF COMPLAINT: Shortness of breath. HISTORY OF PRESENT ILLNESS: The patient is a 56-year-old -[place] female with a past medical history of chronic obstructive pulmonary disease. The patient presented to the emergency department with the chief complaint of shortness of breath. The patient is known to the hospitalist service as she was on our service back in September of this year with a right middle lobe pneumonia. At the time of presentation, the patient has denied any fevers or chills. No recent travel. The patient states that her symptoms have not resolved since her previous admission at the end of September. The patient states she has an ongoing productive cough as well as wheezing and sputum production. The patient, on presentation, was tachypneic as well as tachycardiac. The patient does have a history of nasal polyps. The patient has been followed by ENT in the past, however, she stated that her insurance would not pay to have the nasal polyps removed with the particular instrumentation that the ENT uses. Therefore, she could not afford to have her polyps removed. The patient attributes some of her symptoms to persistent postnasal drip associated with this. However, the patient states her symptoms have gotten acutely worse. Given radiographic evidence of recurrent right middle lobe pneumonia and evidence of SIRS, the patient was referred to the hospitalist for admission and management. PAST MEDICAL HISTORY: 1. Hypertension. 2. Chronic obstructive pulmonary disease due to asthma. 3. Nasal polyps. 4. Previous admission for pneumonia. PAST SURGICAL HISTORY: Negative. ALLERGIES: 1. TESSALON PERLES. 2. ALEVE which causes her heart to race. SOCIAL HISTORY: The patient currently resides at home with her , Saulo, who is also her surrogate decision maker. He can be reached at [phone]. The patient denies any history of tobacco use. No history of alcohol or illicit drug use. FAMILY MEDICAL HISTORY: Positive for COPD and hypertension in multiple family members. The patient does have children with asthma. REVIEW OF SYSTEMS: CONSTITUTIONAL: The patient admits to intermittent fever and chills. No dizziness, weakness, loss of appetite. INTEGUMENTARY: The patient denies any diaphoresis, rash, bruising. No itching. HEENT: The patient denies any vision change or hearing loss. Positive for nasal drainage and intermittent sore throat. CARDIOVASCULAR: The patient denies any heart palpitations or chest pain. Positive for dyspnea. RESPIRATORY: The patient admits to cough and sputum production. GASTROINTESTINAL: No nausea, vomiting, diarrhea, heartburn, constipation, hematemesis, melena, or hematochezia. GENITOURINARY: No hematuria, pyuria or dysuria. MUSCULOSKELETAL: Denies any chronic joint pains but admits to having right arm pain with movement which is relatively new. NEUROLOGIC: No seizures, tremors, or loss of consciousness. HEMATOLOGICAL: Denies any easy bruising or jayson bleeding. PSYCHIATRIC: Denies suicidal or homicidal ideations. PHYSICAL EXAMINATION: GENERAL: On examination, the patient is a well-developed, well-nourished 56-year-old -[place] female who is awake, alert, and oriented to person, place, time, and situation. She is verbal, conversational, ambulatory. She does not appear to be in any acute distress. VITAL SIGNS: Temperature is 98.1, pulse 104, respirations 19, blood pressure is 146/80, and oxygen saturation is 89% on room air. SKIN: Warm and dry. No rash. She is not diaphoretic. HEENT: Pupils equal, round and reactive to light and accommodation. Conjunctivae are pink. Sclerae are not icterus. NECK: There is no JVD. No palpable lymphadenopathy or thyromegaly. CARDIOVASCULAR: Heart is irregular. There is no murmur or rub. CHEST: Diminished, symmetrical, faint expiratory wheezes in upper lung preciado, unlabored. ABDOMEN: Soft, nontender, nondistended. Bowel sounds are present. No palpable organomegaly. BACK: No CVA tenderness or sacral edema. EXTREMITIES: No clubbing, cyanosis, edema, or peripheral signs of embolization, +2 pedal pulses noted bilaterally. PSYCHIATRIC: Appropriate affect. Pleasant mood. NEUROLOGICAL: Cranial nerves II-XII are intact. DIAGNOSTICS: Lab values are as follows. Hematology obtained on 12/11/2016: WBCs are 9.2, hemoglobin is 12.8, hematocrit 38.3, platelet count is 433,000. VBG obtained on 09/24/2016: Her pH is 7.42, pCO2 is 47.4, bicarb is 29.7. Chemistry obtained on 12/11/2016: Sodium is 145, potassium 3.8, chloride is 108, carbon dioxide 26, BUN 13, creatinine 0.66, glucose 102, calcium 9.8, magnesium is 2.0, bilirubin 0.6, AST 25, ALT is 30, alk phos 119, troponin 0.018, total protein 7.1, albumin 4.0. Urinalysis obtained on 12/11/2016: Color straw, appearance clear, pH 7.0, specific gravity 1.008, protein negative, glucose negative, ketones negative, occult blood negative, nitrate negative, bilirubin negative, urobilinogen negative, leukocyte esterase negative, WBC 0, RBC 1, epithelial squamous cells 1, ascorbic acid negative. Microbiology: Blood cultures obtained on 12/11/2016 are pending. Sputum culture obtained on 12/11/2016 is pending. CTA of the chest and abdomen obtained on 12/11/2016 reveals no pulmonary emboli. Patchy atelectasis, consolidation in air bronchogram and volume loss in the right middle lobe. Left basilar atelectasis. A 5 mm pulmonary nodule on the left upper lobe. EKG obtained on 12/11/2016 reveals sinus tachycardia. Chest x-ray obtained on 12/11/2016 reveals ground glass opacity in the right middle lobe. IMPRESSION AND PLAN: 1. Right middle lobe pneumonia. Uncertain if this has been persistent or recurrent. Will consult speech therapy for swallow evaluation. Will start the patient on antibiotic therapy as well as nebulizers. Supplemental O2 and will follow. 2. Hypertension. The patient's blood pressures have been elevated. Will start the patient on a low dose of Norvasc. 3. Sinus polyps, possible sinusitis. Given the patient's nasal congestion symptoms, will treat this aggressively as well. Most likely is contributing to #1. 4. Chronic obstructive pulmonary disease exacerbation. Will continue supplemental O2 and low dose steroids for now and follow. 5. SIRS secondary to the above. Tachycardia is improving 6. DVT prophylaxis. Will start the patient on subcutaneous heparin. DISPOSITION: The patient is a FULL CODE. Pending patient's symptomatology and diagnostic findings, will reevaluate in the a.m. Will admit the patient to inpatient telemetry as the patient's expected length of stay is expected to surpass 2 midnights. Time spent on this admission including assessment, plan, physical examination, patient education, and review of records, collaboration is 45 minutes. DICTATING PHYSICIAN: ALHAJI FINLEY NP [id number] PHY#: [id number] ID: [id number] JOB#: [id number] ACCT: [id number] cc:ALHAJI FINLEY NP, ROBERT >
[2016-12-11] MEDS ORDERED: AMLODIPINE BESYLATE 5 MG TABLET PO SCH (10:00)
[2016-12-11] MEDS ORDERED: FLUTICASONE NASAL SPRAY 50 MCG/SPRY 120 SPRAY/16 GM NASL SCH (10:00)
--- NOTE | 2016-12-11 10:02 | EKG REPORT ---
SEVERITY:- ABNORMAL ECG - SINUS TACHYCARDIA PROBABLE LEFT ATRIAL ABNORMALITY PROBABLE LEFT VENTRICULAR HYPERTROPHY : Confirmed by: Tianna Xavier 11-Dec-2016 10:01:17
[2016-12-11] MEDS: LORATADINE 10 MG TABLET PO SCH (10:35)
[2016-12-11] MEDS: GUAIFENESIN 600 MG TABLET.SA PO SCH ×2 (10:35→21:36)
[2016-12-11] MEDS: PREDNISONE 20 MG TABLET PO SCH ×2 (10:35→17:53)
[2016-12-11] MEDS: FAMOTIDINE 20 MG TABLET PO SCH ×2 (10:36→21:37)
[2016-12-11] MEDS ORDERED: PSEUDOEPHEDRINE HCL 30 MG TABLET PO SCH (12:00)
[2016-12-11] MEDS: PIPERACILLIN SODIUM/TAZOBACTAM 4.5 GM in NORMAL SALINE 100 ML IV SCH ×3 (13:33→23:08)
[2016-12-11] MEDS: HEPARIN SOD (PORCINE) 5,000 UNIT/ML 1 ML SYRINGE SUBCUT SCH ×2 (13:40→21:37)
[2016-12-11] MEDS: ALBUTEROL SULFATE 0.083% NEB 2.5 MG/3 ML AMPUL NEB PRN (13:54)
[2016-12-11] MEDS ORDERED: METOPROLOL TARTRATE 25 MG TABLET PO ONE (17:00)
[2016-12-11] MEDS: PSEUDOEPHEDRINE HCL 30 MG TABLET PO SCH ×2 (17:53→23:08)
[2016-12-11] MEDS: METOPROLOL TARTRATE 25 MG TABLET PO SCH (21:36)
[2016-12-11] MEDS: MONTELUKAST SODIUM 10 MG TABLET PO SCH (21:36)
[2016-12-11] MEDS: FLUTICASONE NASAL SPRAY 50 MCG/SPRY 120 SPRAY/16 GM NASL SCH (21:37)
[2016-12-11] MEDS: BUDESONIDE/FORMOTEROL 160-4.5 MCG 60 PUFF/6 GM MDI IH SCH (21:37)
[2016-12-11] MEDS ORDERED: MONTELUKAST SODIUM 10 MG TABLET PO SCH (22:00)
[2016-12-12] MEDS: PIPERACILLIN SODIUM/TAZOBACTAM 4.5 GM in NORMAL SALINE 100 ML IV SCH ×4 (05:34→23:25)
[2016-12-12] MEDS: HEPARIN SOD (PORCINE) 5,000 UNIT/ML 1 ML SYRINGE SUBCUT SCH ×3 (05:36→21:16)
[2016-12-12] MEDS: BUDESONIDE/FORMOTEROL 160-4.5 MCG 60 PUFF/6 GM MDI IH SCH ×2 (10:21→21:19)
[2016-12-12] MEDS: FLUTICASONE NASAL SPRAY 50 MCG/SPRY 120 SPRAY/16 GM NASL SCH ×2 (10:22→21:19)
[2016-12-12] MEDS: PREDNISONE 20 MG TABLET PO SCH ×2 (10:22→17:14)
[2016-12-12] MEDS: GUAIFENESIN 600 MG TABLET.SA PO SCH ×2 (10:22→21:19)
[2016-12-12] MEDS: METOPROLOL TARTRATE 25 MG TABLET PO SCH ×2 (10:25→21:19)
[2016-12-12] MEDS: LORATADINE 10 MG TABLET PO SCH (10:25)
[2016-12-12] MEDS: FAMOTIDINE 20 MG TABLET PO SCH ×2 (10:25→21:19)
[2016-12-12] MEDS ORDERED: PSEUDOEPHEDRINE HCL 30 MG TABLET PO PRN (14:28)
--- NOTE | 2016-12-12 14:54 | PROGRESS NOTE E ---
Progress Note NAME: ADDIE STEWART : 1960 AGE: 56Y DATE: 12/12/2016 ROOM: 425 SUBJECTIVE: The patient is lying in bed. She states that she does feel a little better today, however, she is dyspneic with minimal activity. She denies any nausea, vomiting, or diarrhea. No dizziness or chest pain. No fever or chills. The patient does admit to excessive amount of sputum production which is reassuring to her. The patient has been afebrile. Her blood pressures have been in a good range. The patient does not voice any other concerns at this time. REVIEW OF SYSTEMS: Rest of the review of systems negative. MEDICATIONS: Have been reviewed. OBJECTIVE: GENERAL: the patient is a 56-year-old -[place] female who is awake, alert, and oriented to person, place, time, and situation. She is verbal, conversational, ambulatory, and does not appear to be in any acute distress. VITAL SIGNS: Temperature 97.4, pulse 81, respirations 20, blood pressure 142/69, oxygen saturation is 91% on room air. SKIN: Warm and dry. No rash. Not diaphoretic. HEENT: Pupils equal, round, reactive to light and accommodation. Conjunctivae are pink. NECK: There is no JVP. CARDIOVASCULAR: Heart is regular with no murmur or rub. CHEST: Patient does have some expiratory wheezes in the upper lung field, otherwise diminished throughout. Symmetrical and unlabored. ABDOMEN: Soft, nontender, nondistended. BACK: No CVA tenderness or sacral edema. EXTREMITIES: No clubbing, cyanosis, or edema. PSYCHIATRIC: Appropriate affect. Pleasant mood. NEUROLOGIC: Intact. DIAGNOSTICS: Lab values are follows: Hematology obtained on 12/11/2016: WBCs are 9.2, hemoglobin is 12.8, hematocrit 38.3, platelet count is 433,000. Chemistry obtained on 12/11/2016: Sodium is 145, potassium 3.8, chloride is 108, carbon dioxide 26, BUN 13, creatinine 0.66, glucose 102, calcium 9.8, magnesium is 2.0, AST 25, ALT is 30, alk phos 119, total protein 7.1, albumin 4.0. IMPRESSION AND PLAN: 1. RIGHT MIDDLE LOBE PNEUMONIA. The patient passed swallow evaluation without issue. Will continue antibiotic therapy as well as nebulizer and follow. 2. CHRONIC OBSTRUCTIVE PULMONARY DISEASE EXACERBATION. Will continue supplemental O2 and steroids. 3. SIRS SECONDARY TO THE ABOVE. Tachycardia did resolve. 4. HYPERTENSION. Blood pressures are improved with Norvasc. Will follow. 5. SINUS POLYPS, POSSIBLE SINUSITIS. Given the congested symptoms, this was aggressively treated. Will give yet another dose of Sudafed as her blood pressure is in a good range now. Most likely contributing to #1. 6. DVT prophylaxis. Will continue subcutaneous heparin. DISPOSITION: The patient is a FULL CODE. Pending patient's symptomatology and diagnostic findings, will reevaluate in the a.m. for possible discharge. Time spent on this followup including assessment, plan, physical examination, and patient education is 25 minutes. DICTATING PHYSICIAN: ALHAJI FINLEY NP [id number] PHY#: [id number] ID: [id number] JOB#: [id number] ACCT: [id number] cc: >
[2016-12-12] MEDS ORDERED: PSEUDOEPHEDRINE HCL 30 MG TABLET PO ONE (15:00)
[2016-12-12] MEDS: LACTOBACILLUS ACIDOPHILUS 250 MG TAB PO SCH (17:15)
[2016-12-12] MEDS: ALBUTEROL SULFATE 0.083% NEB 2.5 MG/3 ML AMPUL NEB PRN (20:34)
[2016-12-12] MEDS: MONTELUKAST SODIUM 10 MG TABLET PO SCH (21:19)
[2016-12-13] MEDS: PIPERACILLIN SODIUM/TAZOBACTAM 4.5 GM in NORMAL SALINE 100 ML IV SCH ×3 (05:17→17:32)
[2016-12-13] MEDS: HEPARIN SOD (PORCINE) 5,000 UNIT/ML 1 ML SYRINGE SUBCUT SCH ×3 (05:20→21:32)
[2016-12-13] MEDS ORDERED: LEVALBUTEROL HCL NEB 0.63 MG/3 ML AMPUL NEB PRN (08:28)
[2016-12-13] MEDS ORDERED: GUAIFENESIN/CODEINE PHOS 100-10 MG/ 5 ML UDC PO PRN (08:29)
[2016-12-13] MEDS: GUAIFENESIN 600 MG TABLET.SA PO SCH ×2 (09:49→21:29)
[2016-12-13] MEDS: LACTOBACILLUS ACIDOPHILUS 250 MG TAB PO SCH ×2 (09:49→17:31)
[2016-12-13] MEDS: LORATADINE 10 MG TABLET PO SCH (09:49)
[2016-12-13] MEDS: FLUTICASONE NASAL SPRAY 50 MCG/SPRY 120 SPRAY/16 GM NASL SCH ×2 (09:49→21:30)
[2016-12-13] MEDS: FAMOTIDINE 20 MG TABLET PO SCH ×2 (09:49→21:29)
[2016-12-13] MEDS: METOPROLOL TARTRATE 25 MG TABLET PO SCH ×2 (09:49→21:30)
[2016-12-13] MEDS: BUDESONIDE/FORMOTEROL 160-4.5 MCG 60 PUFF/6 GM MDI IH SCH ×2 (09:49→21:30)
--- NOTE | 2016-12-13 09:50 | RADIOLOGY REPORT (SQ) ---
EXAM DESCRIPTION: CHEST PA/LAT COMPLETED DATE/TIME: 12/13/2016 9:27 am REASON FOR STUDY: FU PNA COMPARISON: CT angio chest 12/11/2016, 09/24/2016 Chest films 11/06/2016, 09/23/2016 EXAM PARAMETERS: NUMBER OF VIEWS: two views TECHNIQUE: Digital Frontal and Lateral radiographic views of the chest acquired. RADIATION DOSE: NA LIMITATIONS: none FINDINGS: LUNGS AND PLEURA: Near complete clearing of the right middle lobe pneumonia. Minimal band like atelectasis or scarring persists, best shown on lateral view No pleural effusion. No pneumothorax. MEDIASTINUM AND HILAR STRUCTURES: No masses or contour abnormalities. HEART AND VASCULAR STRUCTURES: Heart normal size. No evidence for failure. BONES: No acute findings. HARDWARE: None in the chest. OTHER: No other significant finding. IMPRESSION: Minimal bandlike scarring in the right middle lobe, less prominent than on previous stud ies. TECHNICAL DOCUMENTATION: JOB ID: [id number] [employer]- All Rights Reserved
[2016-12-13] MEDS: METHYLPREDNISOLONE INJ 125 MG/2 ML SDV IV SCH ×2 (13:12→21:29)
[2016-12-13] MEDS: LEVALBUTEROL HCL NEB 1.25 MG/3 ML AMPUL NEB SCH ×2 (14:26→19:31)
--- NOTE | 2016-12-13 14:54 | PROGRESS NOTE E ---
Progress Note NAME: ADDIE STEWART : 1960 AGE: 56Y DATE: 12/13/2016 ROOM: 425 SUBJECTIVE: The patient is currently sitting up in bed. The patient has been producing a great deal of sputum which is to her relief. The patient has been afebrile. Her blood pressures have been in a good range. The patient denies any chest pain. The patient does have shortness of breath with activity but I feel that it has improved at rest. The patient does not voice any other concerns at this time. REVIEW OF SYSTEMS: Rest of the review of systems negative. MEDICATIONS: Have been reviewed. OBJECTIVE: GENERAL: The patient is a 56-year-old -[place] female who is awake, alert, and oriented to person, place, time, and situation. She is verbal, conversational, ambulatory, and does not appear to be in any acute distress. VITAL SIGNS: Temperature 98.0, pulse 71, respirations 18, blood pressure 153/82, oxygen saturation is 96% on room air. SKIN: Warm and dry. No rash. Not diaphoretic. HEENT: Pupils equal, round, reactive to light and accommodation. Conjunctivae are pink. NECK: There is no JVP. CARDIOVASCULAR: Heart is regular. There is no murmur or rub. CHEST: Patient does have expiratory wheezes noted throughout both lung preciado, prolonged expiratory phase but symmetrical and unlabored. ABDOMEN: Soft, nontender, nondistended. BACK: No CVA tenderness or sacral edema. EXTREMITIES: No clubbing, cyanosis, or edema. PSYCHIATRIC: Appropriate affect. Pleasant mood. DIAGNOSTICS: Lab values are follows: Hematology obtained on 12/11/2016: WBCs are 9.2, hemoglobin is 12.8, hematocrit 38.8, platelet count is 433,000. Chemistry obtained on 12/11/2016: Sodium is 145, potassium 3.8, chloride is 108, carbon dioxide 26, BUN 13, creatinine 0.66, glucose 102, calcium 9.8, magnesium is 2.0. IMPRESSION AND PLAN: 1. RIGHT MIDDLE LOBE PNEUMONIA. This does appear to be a recurrence. The patient passed swallow evaluation without issue. She is responding well to antibiotics. Chest x-ray does show a measure of improvement. Will continue flutter valve as well and Mucinex. 2. CHRONIC OBSTRUCTIVE PULMONARY DISEASE EXACERBATION. Will continue supplemental O2. Given the patient's wheezing, will increase the patient's steroids. 3. SIRS SECONDARY TO THE ABOVE. Tachycardia has improved. 4. HYPERTENSION. Blood pressures are improved on Norvasc. Will continue. 5. SINUS POLYPS AND POSSIBLE SINUSITIS. Given the patient's congestion symptoms, this has been treated aggressively. She responded well to Sudafed. Will follow. 6. DVT prophylaxis. Will continue subcutaneous heparin. DISPOSITION: The patient is a FULL CODE. Pending patient's symptomatology and diagnostic findings, will reevaluate in the a.m. for discharge. Time spent on this followup including assessment, plan, physical examination, and patient education is 20 minutes. DICTATING PHYSICIAN: ALHAJI FINLEY NP [id number] PHY#: [id number] ID: [id number] JOB#: [id number] ACCT: [id number] cc: >
[2016-12-13] MEDS: MONTELUKAST SODIUM 10 MG TABLET PO SCH (21:29)
[2016-12-14] MEDS: PIPERACILLIN SODIUM/TAZOBACTAM 4.5 GM in NORMAL SALINE 100 ML IV SCH ×4 (00:19→17:16)
[2016-12-14] MEDS: HEPARIN SOD (PORCINE) 5,000 UNIT/ML 1 ML SYRINGE SUBCUT SCH ×3 (06:07→22:56)
[2016-12-14 06:17] LABS: HEMATOCRIT 36.5 % (36.0-47.0); HEMOGLOBIN 11.8 g/dL (12.0-15.5); HGB HCT DIFFERENCE -1.1; MEAN CORPUSCULAR HEMOGLOBIN 25.4 pg (27.0-33.4); MEAN CORPUSCULAR HGB CONC 32.3 g/dL (32.0-36.0); MEAN CORPUSCULAR VOLUME 79 fl (80-97); RED BLOOD COUNT 4.63 10^6/uL (3.72-5.28); RED CELL DISTRIBUTION WIDTH 14.8 % (11.5-14.0); WHITE BLOOD COUNT 9.1 10^3/uL (4.0-10.5)
[2016-12-14] MEDS: METHYLPREDNISOLONE INJ 125 MG/2 ML SDV IV SCH ×3 (06:21→22:55)
[2016-12-14 06:31] LABS: ANION GAP 11 (5-19); BLOOD UREA NITROGEN 12 mg/dL (7-20); CALCIUM 9.6 mg/dL (8.4-10.2); CARBON DIOXIDE 27 mmol/L (22-30); CHLORIDE 108 mmol/L (98-107); CREATININE RESULT 0.65 mg/dL (0.52-1.25); GLUCOSE 288 mg/dL (75-110); MAGNESIUM 2.3 mg/dL (1.6-2.3)
[2016-12-14] MEDS: LEVALBUTEROL HCL NEB 1.25 MG/3 ML AMPUL NEB SCH ×3 (08:13→19:38)
[2016-12-14] MEDS: FAMOTIDINE 20 MG TABLET PO SCH ×2 (10:07→22:55)
[2016-12-14] MEDS: METOPROLOL TARTRATE 25 MG TABLET PO SCH ×2 (10:07→22:56)
[2016-12-14] MEDS: LORATADINE 10 MG TABLET PO SCH (10:07)
[2016-12-14] MEDS: GUAIFENESIN 600 MG TABLET.SA PO SCH ×2 (10:07→22:55)
[2016-12-14] MEDS: FLUTICASONE NASAL SPRAY 50 MCG/SPRY 120 SPRAY/16 GM NASL SCH ×2 (10:08→22:54)
[2016-12-14] MEDS: LACTOBACILLUS ACIDOPHILUS 250 MG TAB PO SCH ×2 (10:08→17:20)
[2016-12-14] MEDS: BUDESONIDE/FORMOTEROL 160-4.5 MCG 60 PUFF/6 GM MDI IH SCH ×2 (10:08→22:55)
--- NOTE | 2016-12-14 17:08 | PROGRESS NOTE E ---
Progress Note NAME: ADDIE STEWART : 1960 AGE: 56Y DATE: 12/14/2016 ROOM: 425 SUBJECTIVE: The patient is out of bed, washing up when I enter the room. The patient states she feels a little better today. She is still very wheezy. The patient denies any nausea, vomiting, diarrhea. No dizziness, chest pain. The patient does get dyspneic with activity. No fevers, chills. The patient has been afebrile. Her blood pressures have been in a good range and the patient does not voice any other concerns at this time. REVIEW OF SYSTEMS: The rest of the review of systems negative. MEDICATIONS: Were reviewed. OBJECTIVE: GENERAL: The patient is a 56-year-old female who is awake, alert and oriented to person, place, time and situation. She is verbal, conversational, ambulatory. Does not appear to be in any acute distress. VITAL SIGNS: Temperature is 97.4. Pulse 69. Respirations 18. Blood pressure is 162/73. Oxygen saturation 97% on room air. SKIN: Warm and dry, no rash. She is not diaphoretic. HEENT: Pupils equal, round, reactive to light and accommodation. Conjunctivae is pink. NECK: There is no JVD. CARDIOVASCULAR: Heart is regular. There is no murmur or rub. CHEST: The patient does have expiratory wheezes noted throughout both lung preciado, symmetrical. Mildly labored. She does not appear to be acute distress though. BACK: No CVA tenderness, sacral edema. ABDOMEN: Soft, nontender, nondistended. EXTREMITIES: No clubbing, cyanosis, edema. PSYCHIATRIC: Appropriate affect, pleasant mood. DIAGNOSTICS: Lab values are as follows: Hematology done on 12/14/2016: WBCs of 9.1, hemoglobin is 11.8, hematocrit 36.5, platelet count is 427,000. Chemistry obtained on 12/14/2016: Sodium is 146, potassium 4.0, chloride is 108, carbon dioxide 27, BUN 12, creatinine is 0.65, glucose 102, calcium is 9.6, magnesium is 2.3. IMPRESSION AND PLAN: 1. RIGHT MIDDLE LOBE PNEUMONIA. The patient appears to have a reoccurrence or either not complete resolution. The patient has passed her swallow evaluation without issue. Repeat chest x-ray does show a measure of improvement. Will continue flutter valve, as well as Mucinex. 2. CHRONIC OBSTRUCTIVE PULMONARY DISEASE EXACERBATION. Will continue supplemental O2 as well as steroids given the persistent wheezing. 3. SIRS SECONDARY TO THE ABOVE. Tachycardia is improved. 4. HYPERTENSION. Blood pressures are improved on Norvasc. Will continue. 5. SINUS POLYP AND POSSIBLE SINUSITIS. Given the patient's congestion symptoms, this has been treated quite aggressively. She has responded well to Sudafed. Will follow. 6. DVT prophylaxis. Will continue subcutaneous heparin. DISPOSITION: The patient is a FULL CODE. Pending patient symptomatology and diagnostic findings, will reevaluate in the a.m. for discharge. Time spent on this followup including assessment, plan, physical examination and patient education is twenty minutes. DICTATING PHYSICIAN: ALHAJI FINLEY NP [id number] PHY#: [id number] ID: [id number] JOB#: [id number] ACCT: [id number] cc: >
[2016-12-14] MEDS: AMLODIPINE BESYLATE 5 MG TABLET PO SCH (22:55)
[2016-12-14] MEDS: MONTELUKAST SODIUM 10 MG TABLET PO SCH (22:55)
[2016-12-15] MEDS: PIPERACILLIN SODIUM/TAZOBACTAM 4.5 GM in NORMAL SALINE 100 ML IV SCH ×3 (00:06→12:38)
[2016-12-15] MEDS: HEPARIN SOD (PORCINE) 5,000 UNIT/ML 1 ML SYRINGE SUBCUT SCH ×3 (05:30→21:40)
[2016-12-15] MEDS: METHYLPREDNISOLONE INJ 125 MG/2 ML SDV IV SCH ×3 (05:58→21:39)
[2016-12-15] MEDS: LEVALBUTEROL HCL NEB 1.25 MG/3 ML AMPUL NEB SCH ×3 (08:35→19:58)
[2016-12-15] MEDS: LACTOBACILLUS ACIDOPHILUS 250 MG TAB PO SCH ×2 (09:23→18:35)
[2016-12-15] MEDS: FAMOTIDINE 20 MG TABLET PO SCH ×2 (09:23→21:40)
[2016-12-15] MEDS: AMLODIPINE BESYLATE 5 MG TABLET PO SCH ×2 (09:23→21:39)
[2016-12-15] MEDS: FLUTICASONE NASAL SPRAY 50 MCG/SPRY 120 SPRAY/16 GM NASL SCH ×2 (09:24→21:40)
[2016-12-15] MEDS: GUAIFENESIN 600 MG TABLET.SA PO SCH ×2 (09:24→21:39)
[2016-12-15] MEDS: METOPROLOL TARTRATE 25 MG TABLET PO SCH ×2 (09:24→21:39)
[2016-12-15] MEDS: BUDESONIDE/FORMOTEROL 160-4.5 MCG 60 PUFF/6 GM MDI IH SCH ×2 (09:24→21:40)
[2016-12-15] MEDS: LORATADINE 10 MG TABLET PO SCH (09:24)
[2016-12-15] MEDS: AMOXICILLIN TR/POT CLAVULANATE 500-125 MG TAB PO SCH ×2 (14:19→21:39)
--- NOTE | 2016-12-15 15:48 | PROGRESS NOTE E ---
Progress Note NAME: ADDIE STEWART : 1960 AGE: 56Y DATE: 12/15/2016 ROOM: 425 SUBJECTIVE: The patient is currently lying in bed. The patient is still producing copious amounts of sputum and is still unable to complete sentences. The patient is wheezy and very short of breath in spite of steroids and nebulizers. The patient's CTA was unremarkable. Chest x-ray actually showed improvement in her pneumonia. However, the patient just has significant reactive airway. The patient has been afebrile. Her blood pressure has been a little elevated, and the patient does not voice any other concerns at this time. REVIEW OF SYSTEMS: Rest of review of systems is negative. MEDICATIONS: Medications have been reviewed. OBJECTIVE: GENERAL: The patient is a very pleasant 56-year-old -[place] female who is awake, alert and oriented to person, place, time and situation. She is verbal and conversational and does not appear to be in any acute distress. VITAL SIGNS: Temperature is 98.2. Pulse 74. Respirations 18. Blood pressure 155/71. Oxygen saturation is 94% on room air. SKIN: Warm and dry. No rash. She is not diaphoretic. HEENT: Pupils equal, round and reactive to light and accommodation. Conjunctivae are pink. No sinus tenderness. NECK: No JVD. CARDIOVASCULAR SYSTEM: Heart is regular. There is no murmur or rub. CHEST: Mildly labored. Symmetrical. Significantly diminished with faint wheezes noted in upper lung preciado. ABDOMEN: Soft. Nontender. Nondistended. BACK: No CVA tenderness or sacral edema. EXTREMITIES: No clubbing, cyanosis, edema. DIAGNOSTICS: Lab values are as follows. Hematology obtained on 12/14/2016: WBC is 9.1. Hemoglobin is 11.8. Hematocrit is 36.5. Platelet count is 247,000. Chemistry obtained on 12/14/2016: Sodium is 146, potassium 4.0, chloride is 108, carbon dioxide 27. BUN 12, creatinine is 0.65, glucose 288. Calcium is 9.6. Magnesium is 2.3. IMPRESSION AND PLAN: 1. RIGHT MIDDLE LOBE PNEUMONIA. It appears there is some improvement on chest x-ray. The patient passed her swallow evaluation without issue. Continue flutter valve as well as Mucinex. 2. CHRONIC OBSTRUCTIVE PULMONARY DISEASE EXACERBATION. Will continue supplemental O2 and steroids for wheezing. 3. ACUTE HYPOXEMIC RESPIRATORY FAILURE. The patient is significantly tachypneic. She is unable to complete sentences. Still wheezing. Will consult Pulmonology for input with this as well as obtain an echocardiogram. The patient is very short of breath, almost of air hunger. 4. SIRS SECONDARY TO THE ABOVE. Tachycardia has improved. 5. HYPERTENSION. Blood pressures have improved. Will continue Norvasc. 6. SINUS PAUSE AND POSSIBLE SINUSITIS. Given the patient's congestion, have given her intermittent doses of Sudafed. She was supposed to have polypectomy; however, insurance would not pay for it, and since that time she has lost insurance altogether. 7. DVT PROPHYLAXIS. Will continue subcutaneous heparin. 8. PREDIABETES. Will add half-dose metformin for now to ensure patient tolerates this. DISPOSITION: The patient is a FULL CODE. Pending patient's symptomatology and diagnostic findings, will reevaluate for discharge in the a.m. Time spent on this followup including assessment, plan, physical examination, patient education is 25 minutes. DICTATING PHYSICIAN: ALHAJI FINLEY NP [id number] PHY#: [id number] ID: [id number] JOB#: [id number] ACCT: [id number] cc: >
[2016-12-15] MEDS: METFORMIN HCL 500 MG TABLET PO SCH (18:34)
[2016-12-15] MEDS: MONTELUKAST SODIUM 10 MG TABLET PO SCH (21:39)
[2016-12-16] MEDS: HEPARIN SOD (PORCINE) 5,000 UNIT/ML 1 ML SYRINGE SUBCUT SCH ×3 (05:36→21:21)
[2016-12-16] MEDS: AMOXICILLIN TR/POT CLAVULANATE 500-125 MG TAB PO SCH ×3 (05:53→21:16)
[2016-12-16] MEDS: METHYLPREDNISOLONE INJ 125 MG/2 ML SDV IV SCH ×3 (05:53→21:17)
[2016-12-16] MEDS: METFORMIN HCL 500 MG TABLET PO SCH ×2 (08:15→17:02)
[2016-12-16] MEDS: LEVALBUTEROL HCL NEB 1.25 MG/3 ML AMPUL NEB SCH ×3 (08:48→20:21)
[2016-12-16] MEDS: BUDESONIDE/FORMOTEROL 160-4.5 MCG 60 PUFF/6 GM MDI IH SCH ×2 (09:38→21:17)
[2016-12-16] MEDS: FLUTICASONE NASAL SPRAY 50 MCG/SPRY 120 SPRAY/16 GM NASL SCH ×2 (09:38→21:20)
[2016-12-16] MEDS: GUAIFENESIN 600 MG TABLET.SA PO SCH ×2 (09:39→21:16)
[2016-12-16] MEDS: FAMOTIDINE 20 MG TABLET PO SCH ×2 (09:39→21:17)
[2016-12-16] MEDS: AMLODIPINE BESYLATE 5 MG TABLET PO SCH ×2 (09:39→21:17)
[2016-12-16] MEDS: LORATADINE 10 MG TABLET PO SCH (09:39)
[2016-12-16] MEDS: LACTOBACILLUS ACIDOPHILUS 250 MG TAB PO SCH ×2 (09:39→17:03)
[2016-12-16] MEDS: METOPROLOL TARTRATE 25 MG TABLET PO SCH ×2 (09:40→21:17)
--- NOTE | 2016-12-16 17:06 | PDOC PROGRESS REPORT ---
Subjective Progress Note for:: 12/16/16 Subjective:: Patient seen on morning rounds. She is presently resting comfortably in bed. She is presently off oxygen. She denies any acute respiratory distress. She does continue to have a cough which is productive and some wheezing. She denies any chest pain, dyspnea or dizziness. She denies any nausea, vomiting, or abdominal pain. She denies any significant arthralgias or myalgias. Rest of the review of systems are negative. Physical Exam Vital Signs: Temp Pulse Resp BP Pulse Ox 98.6 F 88 16 148/70 H 97 12/16/16 15:04 12/16/16 15:04 12/16/16 15:04 12/16/16 15:04 12/16/16 15:04 Intake & Output 12/15/16 12/16/16 12/17/16 06:59 06:59 06:59 Intake Total 2540 3240 Output Total 2200 3350 Balance 340 -110 Weight 80.4 kg 82.2 kg General appearance: PRESENT: no acute distress, obese, well-developed, well- nourished Head exam: PRESENT: atraumatic, normocephalic Eye exam: PRESENT: conjunctiva pink, EOMI, PERRLA. ABSENT: scleral icterus Ear exam: PRESENT: normal external ear exam Mouth exam: PRESENT: moist, tongue midline Neck exam: ABSENT: carotid bruit, JVD, lymphadenopathy, thyromegaly Respiratory exam: PRESENT: decreased breath sounds, symmetrical, unlabored, wheezes Cardiovascular exam: PRESENT: RRR. ABSENT: diastolic murmur, rubs, systolic murmur Pulses: PRESENT: normal dorsalis pedis pul Vascular exam: PRESENT: normal capillary refill GI/Abdominal exam: PRESENT: normal bowel sounds, soft. ABSENT: distended, guarding, mass, organolmegaly, rebound, tenderness Rectal exam: PRESENT: deferred Extremities exam: PRESENT: full ROM. ABSENT: calf tenderness, clubbing, pedal edema Neurological exam: PRESENT: alert, awake, oriented to person, oriented to place , oriented to time, oriented to situation, CN II-XII grossly intact. ABSENT: motor sensory deficit Psychiatric exam: PRESENT: appropriate affect, normal mood. ABSENT: homicidal ideation, suicidal ideation Skin exam: PRESENT: dry, intact, warm. ABSENT: cyanosis, rash Results Laboratory Results: 12/14/16 05:38 12/14/16 05:38 Impressions: Chest/Abdomen CTA 12/11/16 03:08 IMPRESSION: No pulmonary emboli. Persistent atelectasis/consolidation with air bronchograms and volume loss in the right middle lobe. Mild left basilar atelectasis. 5 mm pulmonary nodule in the left upper lobe. Followup as per patient's risk factors. Chest X-Ray 12/13/16 00:00 IMPRESSION: Minimal bandlike scarring in the right middle lobe, less prominent than on previous studies. Assessment & Plan - Diagnosis (1) Acute respiratory failure with hypoxemia Is this a current diagnosis for this admission?: YesPlan: Resolved with IV antibiotics, IV steroids and nebulizer treatments. No longer is on oxygen (2) COPD with exacerbation Is this a current diagnosis for this admission?: Yes (3) Hypertension Qualifiers: Hypertension type: essential hypertension Qualified Code(s): I10 - Essential (primary) hypertension Is this a current diagnosis for this admission?: YesPlan: Normotensive on current medications (4) Right lower lobe pneumonia Qualifiers: Aspiration pneumonia type: unspecified Is this a current diagnosis for this admission?: YesPlan: Continue oral medications - Time Time Spent with patient: 25-34 minutes Critical Time spent with patient: 15-24 minutes Medications reviewed and adjusted accordingly: Yes Anticipated discharge: Home with Homehealth - Inpatient Certification Based on my medical assessment, after consideration of the patient's comorbidities, presenting symptoms, or acuity I expect that the services needed warrant INPATIENT care.: Yes
--- NOTE | 2016-12-16 17:32 | PDOC CONSULTATION ---
Consultation Consult Date: 12/16/16 Attending physician:: ALHAJI FINLEY Consult reason:: dyspnea History of Present Illness Admission Date/PCP: 12/11/16 08:55 History of Present Illness: ADDIE STEWART is a 56 year old female Past Medical History Cardiac Medical History: Reports: Hypertension Pulmonary Medical History: Reports: Chronic Obstructive Pulmonary Disease (COPD) , Pneumonia Psychiatric Medical History: Denies: Depression Social History Information Source: Patient, [facility] Records Lives with: Spouse/Significant other Smoking Status: Former Smoker Passive smoke exposure as: Both Frequency of Alcohol Use: None Drugs: None Hx Prescription Drug Abuse: No Have you had any respiratory illnesses as a child?: No Have you been exposed to any sick contacts recently?: No Have you travelled outside of [place] in the past 12 months?: No - Advance Directive Resuscitation Status: Full Code Family History Family History: COPD, Hypertension Parental Family History Reviewed: Yes Children Family History Reviewed: Yes Sibling(s) Family History Reviewed.: Yes Medication/Allergy Home Medications: Albuterol Sulfate [Ventolin HFA MDI 18 GM] 2 puff IH Q4HP PRN 12/11/16 Budesonide/Formoterol Fumarate [Symbicort Hfa 160-4.5 Mcg Inhaler 6 gm] 2 puff IH Q12 12/11/16 Fluticasone Propionate [Flonase Nasal Mcintyre 50 Mcg/Mcintyre 16 gm] 2 sprays NASL Q12 12/11/16 Ipratropium/Albuterol Sulfate [Duoneb 3 ml Ampul] 3 ml NEB RTTID 12/11/16 Metoprolol Tartrate [Lopressor 25 mg Tablet] 25 mg PO Q12 12/11/16 Montelukast Sodium [Singulair 10 mg Tablet] 10 mg PO QHS 12/11/16 Allergies/Adverse Reactions: benzonatate [From Tesjacque Blanco] Allergy (Verified 11/06/16 16:41) NSAIDS (Non-Steroidal Anti-Inflamma Allergy (Verified 11/06/16 16:41) Physical Exam Vital Signs: Temp Pulse Resp BP Pulse Ox 97.5 F 73 18 150/70 H 94 12/16/16 07:12 12/16/16 08:48 12/16/16 08:48 12/16/16 07:12 12/16/16 08:48 Intake & Output 12/15/16 12/16/16 12/17/16 06:59 06:59 06:59 Intake Total 2540 3240 Output Total 2200 3350 Balance 340 -110 Weight 80.4 kg 82.2 kg General appearance: PRESENT: no acute distress, cooperative, disheveled, obese, well-developed Head exam: PRESENT: atraumatic, normocephalic Eye exam: PRESENT: conjunctiva pale, EOMI Mouth exam: PRESENT: dry mucosa, neck supple, tongue midline Neck exam: ABSENT: carotid bruit, JVD, lymphadenopathy, thyromegaly Respiratory exam: PRESENT: decreased breath sounds, prolonged expiratory phas, rhonchi, symmetrical, unlabored Cardiovascular exam: PRESENT: RRR, +S1, +S2 GI/Abdominal exam: PRESENT: normal bowel sounds, soft. ABSENT: distended, guarding, mass, organolmegaly, rebound, tenderness Rectal exam: PRESENT: deferred Musculoskeletal exam: PRESENT: normal inspection Neurological exam: PRESENT: alert, awake Psychiatric exam: PRESENT: normal mood Skin exam: PRESENT: dry, warm Results Laboratory Results: 12/14/16 05:38 12/14/16 05:38 Impressions: Chest/Abdomen CTA 12/11/16 03:08 IMPRESSION: No pulmonary emboli. Persistent atelectasis/consolidation with air bronchograms and volume loss in the right middle lobe. Mild left basilar atelectasis. 5 mm pulmonary nodule in the left upper lobe. Followup as per patient's risk factors. Chest X-Ray 12/13/16 00:00 IMPRESSION: Minimal bandlike scarring in the right middle lobe, less prominent than on previous studies. Assessment & Plan - Diagnosis (1) Acute respiratory failure with hypoxemia Is this a current diagnosis for this admission?: Yes (2) Hypertension Qualifiers: Hypertension type: essential hypertension Qualified Code(s): I10 - Essential (primary) hypertension Is this a current diagnosis for this admission?: Yes (3) Pneumonia Qualifiers: Pneumonia type: due to unspecified organism Laterality: right Lung location: middle lobe of lung Qualified Code(s): J18.1 - Lobar pneumonia , unspecified organism Is this a current diagnosis for this admission?: YesPlan: visible only on CT scan (4) Right lower lobe pneumonia Qualifiers: Aspiration pneumonia type: unspecified Is this a current diagnosis for this admission?: Yes (5) Pulmonary nodules Is this a current diagnosis for this admission?: YesPlan: follow per Jose's criteria
[2016-12-16] MEDS: MONTELUKAST SODIUM 10 MG TABLET PO SCH (21:17)
[2016-12-17] MEDS: METHYLPREDNISOLONE INJ 125 MG/2 ML SDV IV SCH (05:33)
[2016-12-17] MEDS: AMOXICILLIN TR/POT CLAVULANATE 500-125 MG TAB PO SCH ×3 (05:33→21:46)
[2016-12-17] MEDS: HEPARIN SOD (PORCINE) 5,000 UNIT/ML 1 ML SYRINGE SUBCUT SCH ×3 (05:34→21:52)
[2016-12-17] MEDS: LEVALBUTEROL HCL NEB 1.25 MG/3 ML AMPUL NEB SCH ×3 (07:46→20:23)
[2016-12-17] MEDS: METFORMIN HCL 500 MG TABLET PO SCH ×2 (09:18→17:44)
[2016-12-17] MEDS: LORATADINE 10 MG TABLET PO SCH (09:18)
[2016-12-17] MEDS: FAMOTIDINE 20 MG TABLET PO SCH ×2 (09:19→21:46)
[2016-12-17] MEDS: METHYLPREDNISOLONE INJ 40 MG/1 ML SDV IV SCH ×2 (09:19→21:46)
[2016-12-17] MEDS: FLUTICASONE NASAL SPRAY 50 MCG/SPRY 120 SPRAY/16 GM NASL SCH ×2 (09:19→21:46)
[2016-12-17] MEDS: METOPROLOL TARTRATE 25 MG TABLET PO SCH ×2 (09:19→21:46)
[2016-12-17] MEDS: GUAIFENESIN 600 MG TABLET.SA PO SCH ×2 (09:19→21:46)
[2016-12-17] MEDS: AMLODIPINE BESYLATE 5 MG TABLET PO SCH ×2 (09:19→21:46)
--- NOTE | 2016-12-17 09:19 | XCELERA REPORT ---
[address] [address] Transthoracic Echocardiogram Report Name: ADDIE STEWART Age: 56 yrs Gender: Female : 1960 Patient Status: Inpatient Patient Location: 4S\S\425\S\A Study Date: 12/16/2016 09:38 AM Height: 64 in Weight: 177 lb BSA: 1.9 m2 Procedure: A complete two-dimensional transthoracic echocardiogram was performed (2D, M-mode, spectral and color flow Doppler). The study was technically adequate with some images being suboptimal in quality. Reason For Study: Dyspnea, palpatations Ordering Physician: ALHAJI FINLEY Performed By: Carmelita Wodo Interpretation Summary The left ventricular ejection fraction is normal. There is mild concentric left ventricular hypertrophy. Doppler measurements suggest impaired left ventricular relaxation, which is associated with grade I/IV or mild diastolic dysfunction The left ventricle is grossly normal size. Wall motion cannot be accurately commented on, but no definite regional wall motion abnormalities noted. The right ventricular systolic function is normal. The right atrium is normal in size The left atrium is mildly dilated. There is no mitral valve stenosis. There is a trace amount of mitral regurgitation There is no aortic valve stenosis No aortic regurgitation is present. There is a trace or physiologic amount of tricuspid regurgitation Tricuspid regurgitation jet envelope not well defined to measure RV systolic pressure accurately. The aortic root is not well visualized but is probably normal size. The inferior vena cava appeared normal and decreased > 50% with respiration (RAP 5-10 mmHg) There is no pericardial effusion. MMode/2D Measurements \T\ Calculations RVDd: 2.9 cm LVIDd: 4.3 cm FS: 37.1 % Ao root diam: 3.0 cm IVSd: 1.2 cm LVIDs: 2.7 cm EDV(Teich): 83.6 ml LVPWd: 1.2 cm ESV(Teich): 27.3 ml Ao root area: 7.0 cm2 EF(Teich): 67.3 % LA dimension: 4.1 cm LVOT diam: 2.2 cm LVOT area: 3.9 cm2 Doppler Measurements \T\ Calculations MV E max bing: MV P1/2t max bing: Ao V2 max: LV V1 max P.7 cm/sec 62.2 cm/sec 183.2 cm/sec 8.8 mmHg MV A max bing: MV P1/2t: 50.1 msec Ao max PG: LV V1 max: 106.1 cm/sec MVA(P1/2t): 4.4 cm2 13.4 mmHg 148.6 cm/sec MV E/A: 0.57 MV dec slope: JONATHAN(V,D): 3.2 cm2 363.3 cm/sec2 PA V2 max: TR max bing: 112.5 cm/sec 242.4 cm/sec PA max P.1 mmHgTR max P.5 mmHg Left Ventricle The left ventricle is grossly normal size. There is mild concentric left ventricular hypertrophy. The left ventricular ejection fraction is normal. Doppler measurements suggest impaired left ventricular relaxation, which is associated with grade I/IV or mild diastolic dysfunction. Wall motion cannot be accurately commented on, but no definite regional wall motion abnormalities noted. Right Ventricle The right ventricle is grossly normal size. There is normal right ventricular wall thickness. The right ventricular systolic function is normal. Atria The right atrium is normal in size. The left atrium is mildly dilated. Interarterial septum not well visualized and not well dopplered. Cannot comment on ASD/PFO presence. Mitral Valve The mitral valve is grossly normal. There is no mitral valve stenosis. There is a trace amount of mitral regurgitation. Aortic Valve The aortic valve is grossly normal. There is no aortic valve stenosis. No aortic regurgitation is present. Tricuspid Valve The tricuspid valve is not well visualized, but is grossly normal. There is no tricuspid stenosis. There is a trace or physiologic amount of tricuspid regurgitation. Tricuspid regurgitation jet envelope not well defined to measure RV systolic pressure accurately. Pulmonic Valve The pulmonic valve is not well visualized. Great Vessels The aortic root is not well visualized but is probably normal size. The inferior vena cava appeared normal and decreased > 50% with respiration (RAP 5-10 mmHg). Effusions There is no pericardial effusion. : ALHAJI FINLEY Shyamal
[2016-12-17] MEDS: BUDESONIDE/FORMOTEROL 160-4.5 MCG 60 PUFF/6 GM MDI IH SCH ×2 (09:20→21:47)
[2016-12-17] MEDS: LACTOBACILLUS ACIDOPHILUS 250 MG TAB PO SCH ×2 (09:20→17:44)
--- NOTE | 2016-12-17 12:50 | PDOC PROGRESS REPORT ---
Subjective Progress Note for:: 12/17/16 Subjective:: Patient seen on morning rounds. She is presently resting comfortably in bedside chair She is presently off oxygen. She denies any acute respiratory distress. She does continue to have a cough which is productive and some wheezing. She denies any chest pain, dyspnea or dizziness. She denies any nausea, vomiting, or abdominal pain. She denies any significant arthralgias or myalgias. Rest of the review of systems are negative. Physical Exam Vital Signs: Temp Pulse Resp BP Pulse Ox 98.4 F 81 14 150/64 H 96 12/17/16 07:20 12/17/16 07:46 12/17/16 07:46 12/17/16 07:20 12/17/16 07:46 Intake & Output 12/16/16 12/17/16 12/18/16 06:59 06:59 06:59 Intake Total 3240 2740 Output Total 3350 2600 Balance -110 140 Weight 82.2 kg 83.8 kg General appearance: PRESENT: no acute distress, well-developed, well-nourished Head exam: PRESENT: atraumatic, normocephalic Eye exam: PRESENT: conjunctiva pink, EOMI, PERRLA. ABSENT: scleral icterus Ear exam: PRESENT: normal external ear exam Mouth exam: PRESENT: moist, tongue midline Neck exam: ABSENT: carotid bruit, JVD, lymphadenopathy, thyromegaly Respiratory exam: PRESENT: clear to auscultation connor, symmetrical, unlabored. ABSENT: rales, rhonchi, wheezes Cardiovascular exam: PRESENT: RRR. ABSENT: diastolic murmur, rubs, systolic murmur Pulses: PRESENT: normal dorsalis pedis pul Vascular exam: PRESENT: normal capillary refill GI/Abdominal exam: PRESENT: normal bowel sounds, soft. ABSENT: distended, guarding, mass, organolmegaly, rebound, tenderness Rectal exam: PRESENT: deferred Extremities exam: PRESENT: full ROM. ABSENT: calf tenderness, clubbing, pedal edema Musculoskeletal exam: PRESENT: ambulatory, full ROM Neurological exam: PRESENT: alert, awake, oriented to person, oriented to place , oriented to time, oriented to situation, CN II-XII grossly intact. ABSENT: motor sensory deficit Psychiatric exam: PRESENT: appropriate affect, normal mood. ABSENT: homicidal ideation, suicidal ideation Skin exam: PRESENT: dry, intact, warm. ABSENT: cyanosis, rash Results Laboratory Results: 12/14/16 05:38 12/14/16 05:38 Impressions: Chest/Abdomen CTA 12/11/16 03:08 IMPRESSION: No pulmonary emboli. Persistent atelectasis/consolidation with air bronchograms and volume loss in the right middle lobe. Mild left basilar atelectasis. 5 mm pulmonary nodule in the left upper lobe. Followup as per patient's risk factors. Chest X-Ray 12/13/16 00:00 IMPRESSION: Minimal bandlike scarring in the right middle lobe, less prominent than on previous studies. Assessment & Plan - Diagnosis (1) Acute respiratory failure with hypoxemia Is this a current diagnosis for this admission?: YesPlan: Resolved with IV antibiotics, IV steroids and nebulizer treatments. No longer is on oxygen (2) COPD with exacerbation Is this a current diagnosis for this admission?: Yes (3) Hypertension Qualifiers: Hypertension type: essential hypertension Qualified Code(s): I10 - Essential (primary) hypertension Is this a current diagnosis for this admission?: YesPlan: Normotensive on current medications (4) Right lower lobe pneumonia Qualifiers: Aspiration pneumonia type: unspecified Is this a current diagnosis for this admission?: YesPlan: Continue oral medications - Time Time Spent with patient: 25-34 minutes Critical Time spent with patient: 15-24 minutes Medications reviewed and adjusted accordingly: Yes Anticipated discharge: Home with Homehealth Within: within 24 hours
[2016-12-17] MEDS: MONTELUKAST SODIUM 10 MG TABLET PO SCH (21:51)
[2016-12-18] MEDS: AMOXICILLIN TR/POT CLAVULANATE 500-125 MG TAB PO SCH ×2 (05:56→14:35)
[2016-12-18] MEDS: HEPARIN SOD (PORCINE) 5,000 UNIT/ML 1 ML SYRINGE SUBCUT SCH ×2 (05:57→14:35)
[2016-12-18] MEDS: METFORMIN HCL 500 MG TABLET PO SCH ×2 (08:48→15:40)
[2016-12-18] MEDS: LEVALBUTEROL HCL NEB 1.25 MG/3 ML AMPUL NEB SCH ×2 (08:58→14:04)
[2016-12-18] MEDS: LACTOBACILLUS ACIDOPHILUS 250 MG TAB PO SCH ×2 (10:24→17:18)
[2016-12-18] MEDS: FAMOTIDINE 20 MG TABLET PO SCH (10:24)
[2016-12-18] MEDS: METHYLPREDNISOLONE INJ 40 MG/1 ML SDV IV SCH (10:24)
[2016-12-18] MEDS: GUAIFENESIN 600 MG TABLET.SA PO SCH (10:24)
[2016-12-18] MEDS: METOPROLOL TARTRATE 25 MG TABLET PO SCH (10:24)
[2016-12-18] MEDS: AMLODIPINE BESYLATE 5 MG TABLET PO SCH (10:25)
[2016-12-18] MEDS: LORATADINE 10 MG TABLET PO SCH (10:25)
[2016-12-18] MEDS: FLUTICASONE NASAL SPRAY 50 MCG/SPRY 120 SPRAY/16 GM NASL SCH (10:25)
[2016-12-18] MEDS: BUDESONIDE/FORMOTEROL 160-4.5 MCG 60 PUFF/6 GM MDI IH SCH (10:25)
--- NOTE | 2016-12-18 14:16 | PDOC PROGRESS REPORT ---
Subjective Progress Note for:: 12/18/16 Subjective:: I feel much better Physical Exam Vital Signs: Temp Pulse Resp BP Pulse Ox 98.0 F 73 16 147/78 H 96 12/18/16 12:29 12/18/16 14:05 12/18/16 14:05 12/18/16 12:29 12/18/16 12:29 Intake & Output 12/17/16 12/18/16 12/19/16 06:59 06:59 06:59 Intake Total 2740 800 Output Total 2600 Balance 140 800 Weight 83.8 kg General appearance: PRESENT: no acute distress, cooperative, obese, well- developed Head exam: PRESENT: atraumatic, normocephalic Eye exam: PRESENT: conjunctiva pale, EOMI Mouth exam: PRESENT: moist, neck supple, tongue midline Neck exam: ABSENT: carotid bruit, JVD, lymphadenopathy, thyromegaly Respiratory exam: PRESENT: decreased breath sounds, prolonged expiratory phas, rhonchi, symmetrical, unlabored Cardiovascular exam: PRESENT: RRR, +S1, +S2 Pulses: PRESENT: normal radial pulses GI/Abdominal exam: PRESENT: normal bowel sounds, soft. ABSENT: distended, guarding, mass, organolmegaly, rebound, tenderness Rectal exam: PRESENT: deferred Musculoskeletal exam: PRESENT: normal inspection Neurological exam: PRESENT: alert, awake Psychiatric exam: PRESENT: normal mood Skin exam: PRESENT: dry, warm Results Laboratory Results: 12/14/16 05:38 12/14/16 05:38 Impressions: Chest/Abdomen CTA 12/11/16 03:08 IMPRESSION: No pulmonary emboli. Persistent atelectasis/consolidation with air bronchograms and volume loss in the right middle lobe. Mild left basilar atelectasis. 5 mm pulmonary nodule in the left upper lobe. Followup as per patient's risk factors. Chest X-Ray 12/13/16 00:00 IMPRESSION: Minimal bandlike scarring in the right middle lobe, less prominent than on previous studies. Assessment & Plan - Diagnosis (1) Acute respiratory failure with hypoxemia Is this a current diagnosis for this admission?: YesPlan: Dramatically improved (2) Hypertension Qualifiers: Hypertension type: essential hypertension Qualified Code(s): I10 - Essential (primary) hypertension Is this a current diagnosis for this admission?: YesPlan: Stable at this time (3) Pneumonia Qualifiers: Pneumonia type: due to unspecified organism Laterality: right Lung location: middle lobe of lung Qualified Code(s): J18.1 - Lobar pneumonia , unspecified organism Is this a current diagnosis for this admission?: YesPlan: visible only on CT scan (4) Right lower lobe pneumonia Qualifiers: Aspiration pneumonia type: unspecified Is this a current diagnosis for this admission?: Yes (5) Pulmonary nodules Is this a current diagnosis for this admission?: YesPlan: follow per Fleshgulshaner's criteria
[2016-12-18 16:12] VITALS: BP 149/61
--- NOTE | 2016-12-18 16:13 | PDOC DISCHARGE SUMMARY ---
General - Admit/Disc Date/PCP Admission Date/Primary Care Provider: 12/11/16 08:55 Discharge Date: 12/18/16 - Discharge Diagnosis (1) Acute respiratory failure with hypoxemia Is this a current diagnosis for this admission?: YesSummary: Resolved off oxygen (2) COPD with exacerbation Is this a current diagnosis for this admission?: YesSummary: Improved. Will continue oral antibiotics (3) Hypertension Is this a current diagnosis for this admission?: YesSummary: Normotensive continue antihypertensives (4) Right lower lobe pneumonia Is this a current diagnosis for this admission?: YesSummary: Continue Augmentin for another 8 days - Additional Information Resuscitation Status: Full Code Discharge Diet: Regular Discharge Activity: Activity As Tolerated, Balance Activity w/Rest Home Medications: Albuterol Sulfate [Ventolin HFA MDI 18 GM] 2 puff IH Q4HP PRN 12/11/16 Budesonide/Formoterol Fumarate [Symbicort HFA 160-4.5 mcg Inhaler 6 gm] 2 puff IH Q12 12/11/16 Fluticasone Propionate [Flonase Nasal [place] 50 Mcg/[facility] 16 gm] 2 sprays NASL Q12 12/11/16 Ipratropium/Albuterol Sulfate [Duoneb 3 ml Ampul] 3 ml NEB RTTID 12/11/16 Metoprolol Tartrate [Lopressor 25 mg Tablet] 25 mg PO Q12 12/11/16 Montelukast Sodium [Singulair 10 mg Tablet] 10 mg PO QHS 12/11/16 Acetaminophen [Tylenol 325 mg Tablet] 650 mg PO Q4HP PRN tablet 12/18/16 Amox Tr/Potassium Clavulanate [Augmentin 875-125 mg Tablet] 1 tab PO BID #14 tablet 12/18/16 Prednisone [Deltasone 20 mg Tablet] 20 mg PO DAILY #3 tablet 12/18/16 History of Present Illness Patient complains of: Cough, wheezing and increasing shortness of breath History of Present Illness: Patient is a 56-year-old female with past medical history of COPD. She presents to the emergency room on 12/11/2016, complained of increasing shortness of breath, cough and wheezing over the 3 days prior. Patient has shortness to be tachycardic, tachypneic and mildly hypoxemic with oxygen saturation of 88% on room air. Patient denies any sick contacts. Patient has had continuous postnasal drainage secondary to nasal polyps and seasonal allergies. She was found to have a recurrent right middle lobe pneumonia on chest x-ray she was referred to the hospitalist service for admission. Hospital Course Hospital Course: . She was started on IV broad-spectrum antibiotics after blood cultures were obtained. Patient was admitted to telemetry and initially was placed on BiPAP therapy. She was able to be weaned off to nasal cannula the following day. She was given IV steroids and nebulizer treatments. She had diffuse wheezing persist. She had a consult with Dr Patel from pulmonary. Physical Exam Vital Signs: Temp Pulse Resp BP Pulse Ox 98.0 F 73 16 147/78 H 96 12/18/16 12:29 12/18/16 14:05 12/18/16 14:05 12/18/16 12:29 12/18/16 12:29 Intake & Output 12/17/16 12/18/16 12/19/16 06:59 06:59 06:59 Intake Total 2740 800 Output Total 2600 Balance 140 800 Weight 83.8 kg General appearance: PRESENT: no acute distress, well-developed, well-nourished Head exam: PRESENT: atraumatic, normocephalic Eye exam: PRESENT: conjunctiva pink, EOMI, PERRLA. ABSENT: scleral icterus Ear exam: PRESENT: normal external ear exam Mouth exam: PRESENT: moist, tongue midline Neck exam: ABSENT: carotid bruit, JVD, lymphadenopathy, thyromegaly Respiratory exam: PRESENT: decreased breath sounds, symmetrical, unlabored. ABSENT: rales, rhonchi, wheezes Cardiovascular exam: PRESENT: RRR. ABSENT: diastolic murmur, rubs, systolic murmur Pulses: PRESENT: normal dorsalis pedis pul Vascular exam: PRESENT: normal capillary refill GI/Abdominal exam: PRESENT: normal bowel sounds, soft. ABSENT: distended, guarding, mass, organolmegaly, rebound, tenderness Rectal exam: PRESENT: deferred Extremities exam: PRESENT: full ROM. ABSENT: calf tenderness, clubbing, pedal edema Neurological exam: PRESENT: alert, awake, oriented to person, oriented to place , oriented to time, oriented to situation, CN II-XII grossly intact. ABSENT: motor sensory deficit Psychiatric exam: PRESENT: appropriate affect, normal mood. ABSENT: homicidal ideation, suicidal ideation Skin exam: PRESENT: dry, intact, warm. ABSENT: cyanosis, rash Results Laboratory Results: 12/14/16 05:38 12/14/16 05:38 Impressions: Chest/Abdomen CTA 12/11/16 03:08 IMPRESSION: No pulmonary emboli. Persistent atelectasis/consolidation with air bronchograms and volume loss in the right middle lobe. Mild left basilar atelectasis. 5 mm pulmonary nodule in the left upper lobe. Followup as per patient's risk factors. Chest X-Ray 12/13/16 00:00 IMPRESSION: Minimal bandlike scarring in the right middle lobe, less prominent than on previous studies. Qualifiers PATEINT BEING DISCHARGED WITH ANY OF THE FOLLOWING DIAGNOSIS?: No Plan Discharge Plan: Home with family Time Spent: Less than 30 Minutes
== END 2016-12-18 20:50 | disposition home or self-care (01) | DRG 189 ==
LOC: ER 23:14 → UNDOADMIN 12-11 07:18 → EH 12-11 07:18 → 4S 12-11 09:12
PROVIDERS: ADMIT Family Medicine; ATTEND Family Medicine
PROC: 5A09357 Assistance with Respiratory Ventilation, Less than 24 Consecutive Hours, Continuous Positive Airway Pressure (ICD-10-PCS; principal; 2016-12-11)
DX: J96.01 Acute respiratory failure with hypoxia (principal); J18.9 Pneumonia, unspecified organism; J44.1 Chronic obstructive pulmonary disease with (acute) exacerbation; I10 Essential (primary) hypertension; Z79.899 Other long term (current) drug therapy; J33.8 Other polyp of sinus; R91.8 Other nonspecific abnormal finding of lung field
CPT/HCPCS: 36415; 71010; 71020; 71275; 80048; 80053; 81001; 83036; 83735; 84484; 85025; 85027; 87040; 87205; 93005; 93010; 93306; 94640; 94667; 94668; 94799; 96365; 99285; J0692; J1956; J2543; J2920; J2930; J3475; J3490; J7040; J7512; J7614; J7620

== ENCOUNTER → 2017-01-08 | Outpatient (CLI) | payer OTHER ==
--- NOTE | 2017-01-08 14:50 | RADIOLOGY REPORT (SQ) ---
EXAM DESCRIPTION: CHEST PA/LAT COMPLETED DATE/TIME: 01/08/2017 2:42 pm REASON FOR STUDY: PNEUMONIA (J18.9) COMPARISON: CT chest 09/24/2016, 12/11/2016 Two-view chest 09/23/2016, 12/13/2016 EXAM PARAMETERS: NUMBER OF VIEWS: two views TECHNIQUE: Digital Frontal and Lateral radiographic views of the chest acquired. RADIATION DOSE: NA LIMITATIONS: none FINDINGS: LUNGS AND PLEURA: Minimal bandlike scarring or atelectasis left posterior costophrenic sul cus. No fluffy alveolar infiltrates worrisome for edema or pneumonia. No pleural effusion. No pneumothor ax. MEDIASTINUM AND HILAR STRUCTURES: No masses or contour abnormalities. HEART AND VASCULAR STRUCTURES: Heart normal size. No evidence for failure. BONES: No acute findings. HARDWARE: None in the chest. OTHER: No other significant finding. IMPRESSION: Minimal left basilar atelectasis. Otherwise unremarkable study TECHNICAL DOCUMENTATION: JOB ID: [id number] [employer]- All Rights Reserved
== END ==
LOC: RAD 14:25
DX: J18.9 Pneumonia, unspecified organism (principal)
CPT/HCPCS: 71020

== ENCOUNTER 2017-01-19 18:43 | Inpatient (IN) | payer SELFPAY ==
[2017-01-19] MEDS ORDERED: ASPIRIN 81 MG TABLET, CHEWABLE PO ONE (18:53)
[2017-01-19] MEDS ORDERED: MAGNESIUM SULFATE INJ 8 MEQ/2 ML IV ONE (20:28)
[2017-01-19] MEDS ORDERED: IPRATROPIUM/ALBUTEROL 0.5-2.5 MG/3 ML AMPUL NEB ONE (20:28)
--- NOTE | 2017-01-19 20:32 | ER Document Report ---
ED Respiratory Problem - General Mode of Arrival: Ambulatory Information source: Patient TRAVEL OUTSIDE OF THE [place] IN LAST 30 DAYS: No - HPI Patient complains to provider of: Other - breathing difficulty Associated symptoms: Other - See above <ALBERTINA SANCHEZ - Last Filed: 01/19/17 20:52> <SON BUNCH - Last Filed: 01/20/17 00:30> - General Chief Complaint: Breathing Difficulty Stated Complaint: breathing difficulty Time Seen by Provider: 01/19/17 20:22 Notes: Patient is a 56 year old female, with a past medical history including COPD and nasal polyps, who presents to the emergency department complaining of difficulty breathing. Patient reports that she has been using her nebulizer at home a bunch with no relief. Patient also complains of nausea. Patient was admitted to this facility on December 11 and treated for pneumonia. (ALBERTINA SANCHEZ ) - Related Data Allergies/Adverse Reactions: benzonatate [From Tessalon Perljoe] Allergy (Verified 11/06/16 16:41) NSAIDS (Non-Steroidal Anti-Inflamma Allergy (Verified 11/06/16 16:41) Past Medical History - General Information source: Patient - Social History Smoking Status: Unknown if Ever Smoked Family History: Reviewed & Not Pertinent, COPD, Hypertension Patient has suicidal ideation: No Patient has homicidal ideation: No - Past Medical History Cardiac Medical History: Reports: Hx Hypertension Pulmonary Medical History: Reports: Hx COPD, Hx Pneumonia - Immunizations Hx Diphtheria, Pertussis, Tetanus Vaccination: Yes <ALBERTINA SANCHEZ - Last Filed: 01/19/17 20:52> Review of Systems - Review of Systems Constitutional: No symptoms reported EENT: denies: Sinus pressure Cardiovascular: No symptoms reported Respiratory: See HPI, Other - difficulty breathing and congestion Gastrointestinal: No symptoms reported Genitourinary: No symptoms reported Female Genitourinary: No symptoms reported Musculoskeletal: No symptoms reported Skin: No symptoms reported Hematologic/Lymphatic: No symptoms reported Neurological/Psychological: No symptoms reported -: Yes All other systems reviewed and negative <ALBERTINA SANCHEZ - Last Filed: 01/19/17 20:52> Physical Exam - Vital signs Interpretation: Normal - General General appearance: Appears well, Alert - HEENT Head: Normocephalic, Atraumatic - Respiratory Respiratory status: No respiratory distress Chest status: Nontender Breath sounds: Rhonchi, Wheezing Chest palpation: Normal - Cardiovascular Rhythm: Regular Heart sounds: Normal auscultation Murmur: No - Back Back: Normal, Nontender - Extremities General upper extremity: Normal inspection General lower extremity: Normal inspection - Neurological Neuro grossly intact: Yes Cognition: Normal Orientation: AAOx4 [place] Coma Scale Eye Opening: Spontaneous [place] Coma Scale Verbal: Oriented [place] Coma Scale Motor: Obeys Commands [place] Coma Scale Total: 15 Speech: Normal - Psychological Associated symptoms: Normal affect, Normal mood - Skin Skin Temperature: Warm Skin Moisture: Dry Skin Color: Normal <ALBERTINA SANCHEZ - Last Filed: 01/19/17 20:52> Course - Laboratory Result Diagrams: 01/19/17 20:25 01/19/17 20:25 <ALBERTINA SANCHEZ - Last Filed: 01/19/17 20:52> - Laboratory Result Diagrams: 01/19/17 20:25 01/19/17 20:25 - Diagnostic Test Radiology reviewed: Image reviewed, Reports reviewed - Chest x-ray does not show any acute process - EKG Interpretation by Ks EKG shows normal: Sinus rhythm, Rule, Intervals, QRS Complexes, ST-T Waves Rate: Tachycardia - 111 Voltage: Consistant with LVH - Consults Dr. Moreno Time consulted: 00:30 Consulted provider: will come to ER <SON BUNCH - Last Filed: 01/20/17 00:30> - Vital Signs Vital signs: Temp Pulse Resp BP Pulse Ox 97.9 F 117 H 26 H 153/88 H 95 01/19/17 19:05 01/19/17 19:05 01/20/17 00:01 01/20/17 00:01 01/20/17 00:01 - Laboratory Laboratory results interpreted by nm: 01/19/17 01/19/17 20:25 20:25 WBC 14.3 H MCV 78 L MCH 25.0 L MCHC 31.9 L RDW 15.1 H Eosinophils % 6.2 H Absolute Neutrophils 9.6 H Absolute Eosinophils 0.9 H Potassium 3.4 L Alkaline Phosphatase 131 H Creatine Kinase 190 H Discharge <ALBERTINA SANCHEZ - Last Filed: 01/19/17 20:52> - Discharge Admitting Provider: Hospitalist Unit Admitted: Telemetry <SON BUNCH - Last Filed: 01/20/17 00:30> - Discharge Clinical Impression: Acute exacerbation of chronic obstructive pulmonary disease (COPD) Condition: Stable Disposition: ADMITTED OBSERVATION Scribe Attestation: 01/20/17 00:10 I personally performed the services described in the documentation, reviewed and edited the documentation which was dictated to the scribe in my presence, and it accurately records my words and actions. (SON BUNCH) Scribe Documentation - Scribe Written by Brandt:: brandt Granados, 01/19/[id number] acting as scribe for :: Nuris <ALBERTINA SANCHEZ - Last Filed: 01/19/17 20:52>
--- NOTE | 2017-01-19 20:34 | RADIOLOGY REPORT (SQ) ---
EXAM DESCRIPTION: CHEST SINGLE VIEW COMPLETED DATE/TIME: 01/19/2017 8:20 pm REASON FOR STUDY: chest pain COMPARISON: 12/29/2016. EXAM PARAMETERS: NUMBER OF VIEWS: One view. TECHNIQUE: Single frontal radiographic view of the chest acquired. RADIATION DOSE: NA LIMITATIONS: None. FINDINGS: LUNGS AND PLEURA: The left lung base atelectasis has cleared. No opacities, masses or pn eumothorax. No pleural effusion. MEDIASTINUM AND HILAR STRUCTURES: No masses. Contour normal. HEART AND VASCULAR STRUCTURES: Heart normal in size. Normal vasculature. BONES: No acute findings. HARDWARE: None in the chest. OTHER: No other significant finding. IMPRESSION: NO ACUTE RADIOGRAPHIC FINDING IN THE CHEST. TECHNICAL DOCUMENTATION: JOB ID: [id number]
[2017-01-19 20:41] LABS: ABSOLUTE BASOPHILS # (AUTO) 0.1 10^3/uL (0.0-0.2); ABSOLUTE EOSINOPHILS # (AUTO) 0.9 10^3/uL (0.0-0.6); ABSOLUTE LYMPHOCYTES (AUTO) 2.7 10^3/uL (0.5-4.7); ABSOLUTE MONOCYTES (AUTO) 1.1 10^3/uL (0.1-1.4); ABSOLUTE NEUT (AUTO) 9.6 10^3/uL (1.7-8.2); BASOPHILS % (AUTO) 0.4 % (0-2); EOSINOPHILS % (AUTO) 6.2 % (0-6); HEMATOCRIT 40.3 % (36.0-47.0); HEMOGLOBIN 12.9 g/dL (12.0-15.5); HGB HCT DIFFERENCE -1.6; LYMPHOCYTES % (AUTO) 18.7 % (13-45); MEAN CORPUSCULAR HGB CONC 31.9 g/dL (32.0-36.0); MEAN CORPUSCULAR VOLUME 78 fl (80-97); MONOCYTES % (AUTO) 7.7 % (3-13); RED BLOOD COUNT 5.15 10^6/uL (3.72-5.28); RED CELL DISTRIBUTION WIDTH 15.1 % (11.5-14.0); WHITE BLOOD COUNT 14.3 10^3/uL (4.0-10.5)
[2017-01-19 21:00] LABS: ALANINE AMINOTRANSFERASE 32 U/L (9-52); ALBUMIN 4.1 g/dL (3.5-5.0); ALKALINE PHOSPHATASE 131 U/L (38-126); ANION GAP 11 (5-19); ASPARTATE AMINO TRANSFERASE 26 U/L (14-36); BILIRUBIN,DIRECT 0.3 mg/dL (0.0-0.4); BILIRUBIN,TOTAL 0.7 mg/dL (0.2-1.3); BLOOD UREA NITROGEN 8 mg/dL (7-20); CALCIUM 9.5 mg/dL (8.4-10.2); CARBON DIOXIDE 27 mmol/L (22-30); CHLORIDE 105 mmol/L (98-107); CREATINE KINASE 190 U/L (30-135); CREATININE RESULT 0.63 mg/dL (0.52-1.25); GLUCOSE 110 mg/dL (75-110); POTASSIUM 3.4 mmol/L (3.6-5.0); SODIUM 143.1 mmol/L (137-145); TOTAL PROTEIN 7.3 g/dL (6.3-8.2)
[2017-01-19] MEDS ORDERED: MAGNESIUM SULFATE/D5W 1 GM/100 ML RTUPB IV ONE (21:00)
[2017-01-19 21:11] LABS: CREATINE KINASE MB 1.92 ng/mL (<4.55); TROPONIN I < 0.012 ng/mL
[2017-01-19] MEDS ORDERED: ALBUTEROL SULFATE 0.083% NEB 2.5 MG/3 ML AMPUL NEB ONE (21:30)
[2017-01-19] MEDS ORDERED: METHYLPREDNISOLONE INJ 125 MG/2 ML SDV IV ONE (21:31)
[2017-01-20] MEDS ORDERED: IPRATROPIUM/ALBUTEROL 0.5-2.5 MG/3 ML AMPUL NEB ONE (00:08)
[2017-01-20] MEDS ORDERED: MAG HYDROX/AL HYDROX/SIMETH SUSP 30 ML UDCUP PO PRN (00:48)
[2017-01-20] MEDS ORDERED: IPRATROPIUM/ALBUTEROL 0.5-2.5 MG/3 ML AMPUL NEB PRN (00:48)
[2017-01-20] MEDS ORDERED: ACETAMINOPHEN 325 MG TABLET PO PRN (00:48)
[2017-01-20] MEDS ORDERED: FAMOTIDINE 20 MG TABLET PO ONE (01:30)
[2017-01-20] MEDS ORDERED: PREDNISONE 20 MG TABLET PO ONE (01:30)
[2017-01-20] MEDS ORDERED: FLUTICASONE NASAL SPRAY 50 MCG/SPRY 120 SPRAY/16 GM NASL ONE (01:45)
[2017-01-20] MEDS ORDERED: MONTELUKAST SODIUM 10 MG TABLET PO ONE (02:00)
[2017-01-20] MEDS: IPRATROPIUM/ALBUTEROL 0.5-2.5 MG/3 ML AMPUL NEB SCH ×4 (02:40→20:39)
--- NOTE | 2017-01-20 04:46 | PDOC H&P ---
History of Present Illness Admission Date/PCP: 01/20/17 00:48 Patient complains of: Shortness of breath History of Present Illness: ADDIE STEWART is a 56 year old female with a past medical history of aspirin exacerbated respiratory disease, nasal polyps and GERD who has been in her usual state of health until approximately 6 hours prior to presentation. She presents with a nonproductive cough postnasal drip without fever or sore throat prompting her to seek evaluation emergency room. Patient denies recent change in medications. In the emergency room she is severely tachypneic with wheezing and hypoxia requiring continuous nebulizer treatment, stress dose steroids and magnesium. She is referred to the hospital for admission Past Medical History Cardiac Medical History: Reports: Hypertension Pulmonary Medical History: Reports: Asthma - Aspirin associated asthma, Chronic Obstructive Pulmonary Disease (COPD), Pneumonia Psychiatric Medical History: Denies: Depression Social History Information Source: Patient, [facility] Records Lives with: Family Smoking Status: Former Smoker Frequency of Alcohol Use: None Hx Recreational Drug Use: No Drugs: None Hx Prescription Drug Abuse: No - Advance Directive Resuscitation Status: Full Code Family History Family History: COPD, Hypertension Parental Family History Reviewed: Yes Children Family History Reviewed: Yes Sibling(s) Family History Reviewed.: Yes Medication/Allergy Home Medications: Albuterol Sulfate [Ventolin HFA MDI 18 GM] 2 puff IH Q4HP PRN 12/11/16 Budesonide/Formoterol Fumarate [Symbicort HFA 160-4.5 mcg Inhaler 6 gm] 2 puff IH Q12 12/11/16 Fluticasone Propionate [Flonase Nasal [place] 50 Mcg/[place] 16 gm] 2 sprays NASL Q12 12/11/16 Ipratropium/Albuterol Sulfate [Duoneb 3 ml Ampul] 3 ml NEB RTTID 12/11/16 Metoprolol Tartrate [Lopressor 25 mg Tablet] 25 mg PO Q12 12/11/16 Montelukast Sodium [Singulair 10 mg Tablet] 10 mg PO QHS 12/11/16 Acetaminophen [Tylenol 325 mg Tablet] 650 mg PO Q4HP PRN tablet 12/18/16 Amox Tr/Potassium Clavulanate [Augmentin 875-125 mg Tablet] 1 tab PO BID #14 tablet 12/18/16 Prednisone [Deltasone 20 mg Tablet] 20 mg PO DAILY #3 tablet 12/18/16 Allergies/Adverse Reactions: benzonatate [From Wes Blanco] Allergy (Verified 11/06/16 16:41) NSAIDS (Non-Steroidal Anti-Inflamma Allergy (Verified 11/06/16 16:41) Review of Systems Constitutional: ABSENT: chills, fever(s), headache(s), weight gain, weight loss Eyes: ABSENT: visual disturbances Ears: ABSENT: hearing changes Cardiovascular: ABSENT: chest pain, dyspnea on exertion, edema, orthropnea, palpitations Respiratory: ABSENT: cough, hemoptysis Gastrointestinal: ABSENT: abdominal pain, constipation, diarrhea, hematemesis, hematochezia, nausea, vomiting Genitourinary: ABSENT: dysuria, hematuria Musculoskeletal: ABSENT: joint swelling Integumentary: ABSENT: rash, wounds Neurological: ABSENT: abnormal gait, abnormal speech, confusion, dizziness, focal weakness, syncope Psychiatric: ABSENT: anxiety, depression, homidical ideation, suicidal ideation Endocrine: ABSENT: cold intolerance, heat intolerance, polydipsia, polyuria Hematologic/Lymphatic: ABSENT: easy bleeding, easy bruising Physical Exam Vital Signs: Temp Pulse Resp BP Pulse Ox 97.9 F 108 H 20 165/73 H 95 01/20/17 02:06 01/20/17 03:04 01/20/17 02:40 01/20/17 02:06 01/20/17 02:40 Intake & Output 01/18/17 01/19/17 01/20/17 11:59 11:59 11:59 Weight 82.3 kg Respiratory exam: PRESENT: accessory muscle use, crackles, prolonged expiratory phas, retraction, symmetrical, tachypnea, wheezes. ABSENT: rhonchi, stridor Results Impressions: Chest X-Ray 01/19/17 20:04 IMPRESSION: NO ACUTE RADIOGRAPHIC FINDING IN THE CHEST. Assessment & Plan - Diagnosis (1) Aspirin-induced asthma Is this a current diagnosis for this admission?: YesPlan: Avoidance of NSAIDs, stress dose steroids, albuterol and Atrovent and education follow-up peak flow (2) GERD (gastroesophageal reflux disease) Is this a current diagnosis for this admission?: YesPlan: Proton pump inhibitor twice daily (3) Rhinorrhea Is this a current diagnosis for this admission?: YesPlan: Flonase little complicated by nasal polyps (4) Acute respiratory failure with hypoxemia Is this a current diagnosis for this admission?: YesPlan: Albuterol and Atrovent, supplemental oxygen, stress dose steroids - Time Time Spent: 30 to 50 Minutes - Inpatient Certification Medical Necessity: Need Close Monitoring Due to Risk of Patient Decompensation
[2017-01-20 04:54] LABS: ABSOLUTE EOSINOPHILS # (AUTO) 0.1 10^3/uL (0.0-0.6); ABSOLUTE LYMPHOCYTES (AUTO) 1.2 10^3/uL (0.5-4.7); ABSOLUTE MONOCYTES (AUTO) 0.2 10^3/uL (0.1-1.4); ABSOLUTE NEUT (AUTO) 10.6 10^3/uL (1.7-8.2); BASOPHILS % (AUTO) 0.3 % (0-2); EOSINOPHILS % (AUTO) 0.9 % (0-6); HEMATOCRIT 36.4 % (36.0-47.0); HEMOGLOBIN 11.9 g/dL (12.0-15.5); HGB HCT DIFFERENCE -0.7; LYMPHOCYTES % (AUTO) 10.2 % (13-45); MEAN CORPUSCULAR HEMOGLOBIN 25.3 pg (27.0-33.4); MEAN CORPUSCULAR HGB CONC 32.6 g/dL (32.0-36.0); MEAN CORPUSCULAR VOLUME 78 fl (80-97); MONOCYTES % (AUTO) 1.2 % (3-13); RED BLOOD COUNT 4.69 10^6/uL (3.72-5.28); RED CELL DISTRIBUTION WIDTH 15.4 % (11.5-14.0); SEGMENTED NEUTROPHILS % (AUTO) 87.4 % (42-78); WHITE BLOOD COUNT 12.2 10^3/uL (4.0-10.5)
[2017-01-20] MEDS: LANSOPRAZOLE 30 MG TAB.RAP.DR PO SCH ×2 (05:05→16:46)
[2017-01-20] MEDS: HEPARIN SOD (PORCINE) 5,000 UNIT/ML 1 ML SYRINGE SUBCUT SCH ×3 (05:05→21:41)
[2017-01-20 05:10] LABS: ANION GAP 13 (5-19); BLOOD UREA NITROGEN 6 mg/dL (7-20); CALCIUM 9.1 mg/dL (8.4-10.2); CARBON DIOXIDE 23 mmol/L (22-30); CHLORIDE 107 mmol/L (98-107); CREATININE RESULT 0.57 mg/dL (0.52-1.25); GLUCOSE 250 mg/dL (75-110)
[2017-01-20] MEDS ORDERED: PREDNISONE 20 MG TABLET PO SCH (10:00)
[2017-01-20] MEDS: FLUTICASONE NASAL SPRAY 50 MCG/SPRY 120 SPRAY/16 GM NASL SCH ×2 (10:51→21:44)
[2017-01-20] MEDS: BUDESONIDE/FORMOTEROL 160-4.5 MCG 60 PUFF/6 GM MDI IH SCH ×2 (10:52→21:44)
[2017-01-20] MEDS: DOCUSATE SODIUM 100 MG CAPSULE PO SCH ×2 (10:54→18:45)
--- NOTE | 2017-01-20 13:35 | PDOC PROGRESS REPORT ---
Subjective Progress Note for:: 01/20/17 Subjective:: Patient states that her shortness of breath is improved but not back to baseline. She states that she has had difficulty affording outpatient medication secondary to lack of insurance. Patient denies fever, chills, headache, new focal weakness, chest pain, abdominal pain, nausea, vomiting, diarrhea, constipation. Physical Exam Vital Signs: Temp Pulse Resp BP Pulse Ox 97.1 F 112 H 18 156/78 H 100 01/20/17 11:28 01/20/17 11:28 01/20/17 11:28 01/20/17 11:28 01/20/17 11:28 Intake & Output 01/19/17 01/20/17 01/21/17 06:59 06:59 06:59 Intake Total 243 Output Total 0 Balance 243 Weight 82.3 kg GENERAL: No acute distress HEENT: Conjunctiva clear, nonicteric, moist mucous membranes, no JVD, midline trachea RESPIRATORY: Bilateral wheezes CARDIAC: Regular rate and rhythm, no murmurs/gallops/rubs ABDOMEN: Soft, nondistended, nontender, positive bowel sounds, no rebound, no guarding EXTREMETIES: No edema, cyanosis, clubbing NEUROLOGIC: Alert, oriented to person/place/time, CN's grossly intact, no focal deficits SKIN: No rash, wounds PSYCH: Normal mood, normal affect Results Laboratory Results: 01/20/17 04:26 01/20/17 04:26 01/20/17 01/20/17 04:26 04:26 WBC 12.2 H RBC 4.69 Hgb 11.9 L Hct 36.4 MCV 78 L MCH 25.3 L MCHC 32.6 RDW 15.4 H Plt Count 367 Seg Neutrophils % 87.4 H Lymphocytes % 10.2 L Monocytes % 1.2 L Eosinophils % 0.9 Basophils % 0.3 Absolute Neutrophils 10.6 H Absolute Lymphocytes 1.2 Absolute Monocytes 0.2 Absolute Eosinophils 0.1 Absolute Basophils 0.0 Sodium 143.0 Potassium 4.0 Chloride 107 Carbon Dioxide 23 Anion Gap 13 BUN 6 L Creatinine 0.57 Est GFR ( Amer) > 60 Est GFR (Non-Af Amer) > 60 Glucose 250 H Calcium 9.1 Impressions: Chest X-Ray 01/19/17 20:04 IMPRESSION: NO ACUTE RADIOGRAPHIC FINDING IN THE CHEST. Assessment & Plan - Diagnosis (1) Acute respiratory failure with hypoxemia Is this a current diagnosis for this admission?: YesPlan: Wean oxygen as tolerated. (2) COPD with exacerbation Is this a current diagnosis for this admission?: YesPlan: Discontinue prednisone. Start IV Solu-Medrol. Bronchodilators. Patient will need to follow-up with Dr. Patel of pulmonary medicine after discharge. She had a previously scheduled appointment on 01/21/2017 that she will have to reschedule. She has had difficulty complying with outpatient medications secondary to lack of insurance. (3) GERD (gastroesophageal reflux disease) Is this a current diagnosis for this admission?: Yes - Time Time Spent with patient: 25-34 minutes Anticipated discharge: Home Within: within 48 hours
[2017-01-20] MEDS: METHYLPREDNISOLONE INJ 40 MG/1 ML SDV IV SCH ×2 (14:41→21:44)
[2017-01-20] MEDS ORDERED: AMLODIPINE BESYLATE 5 MG TABLET PO ONE (17:00)
--- NOTE | 2017-01-20 19:18 | EKG REPORT ---
SEVERITY:- ABNORMAL ECG - SINUS TACHYCARDIA PROMINENT P WAVES, NONDIAGNOSTIC CONSIDER LEFT VENTRICULAR HYPERTROPHY : Confirmed by: Raman Hernandez MD 20-Jan-2017 19:17:22
[2017-01-20] MEDS: MONTELUKAST SODIUM 10 MG TABLET PO SCH (21:44)
[2017-01-21] MEDS: IPRATROPIUM/ALBUTEROL 0.5-2.5 MG/3 ML AMPUL NEB SCH ×4 (02:06→19:34)
[2017-01-21 05:17] LABS: ABSOLUTE LYMPHOCYTES (AUTO) 1.3 10^3/uL (0.5-4.7); ABSOLUTE MONOCYTES (AUTO) 0.5 10^3/uL (0.1-1.4); ABSOLUTE NEUT (AUTO) 13.5 10^3/uL (1.7-8.2); BASOPHILS % (AUTO) 0.2 % (0-2); EOSINOPHILS % (AUTO) 0.1 % (0-6); HEMATOCRIT 35.9 % (36.0-47.0); HEMOGLOBIN 11.7 g/dL (12.0-15.5); HGB HCT DIFFERENCE -0.8; LYMPHOCYTES % (AUTO) 8.2 % (13-45); MEAN CORPUSCULAR HEMOGLOBIN 25.3 pg (27.0-33.4); MEAN CORPUSCULAR HGB CONC 32.7 g/dL (32.0-36.0); MEAN CORPUSCULAR VOLUME 78 fl (80-97); MONOCYTES % (AUTO) 3.2 % (3-13); RED BLOOD COUNT 4.64 10^6/uL (3.72-5.28); RED CELL DISTRIBUTION WIDTH 15.7 % (11.5-14.0); SEGMENTED NEUTROPHILS % (AUTO) 88.3 % (42-78); WHITE BLOOD COUNT 15.3 10^3/uL (4.0-10.5)
[2017-01-21] MEDS: METHYLPREDNISOLONE INJ 40 MG/1 ML SDV IV SCH ×3 (05:47→21:52)
[2017-01-21] MEDS: HEPARIN SOD (PORCINE) 5,000 UNIT/ML 1 ML SYRINGE SUBCUT SCH ×3 (05:47→21:52)
[2017-01-21] MEDS: LANSOPRAZOLE 30 MG TAB.RAP.DR PO SCH ×2 (05:47→17:35)
[2017-01-21 05:59] LABS: ANION GAP 11 (5-19); BLOOD UREA NITROGEN 10 mg/dL (7-20); CALCIUM 9.3 mg/dL (8.4-10.2); CARBON DIOXIDE 27 mmol/L (22-30); CHLORIDE 106 mmol/L (98-107); CREATININE RESULT 0.57 mg/dL (0.52-1.25); GLUCOSE 211 mg/dL (75-110); POTASSIUM 3.9 mmol/L (3.6-5.0); SODIUM 144.1 mmol/L (137-145)
--- NOTE | 2017-01-21 09:12 | PDOC PROGRESS REPORT ---
Subjective Progress Note for:: 01/21/17 Subjective:: Patient has continued shortness of breath. Patient denies fever, chills, headache, new focal weakness, chest pain, abdominal pain, nausea, vomiting, diarrhea, constipation. Physical Exam Vital Signs: Temp Pulse Resp BP Pulse Ox 97.1 F 110 H 22 H 146/89 H 99 01/21/17 07:42 01/21/17 07:42 01/21/17 07:42 01/21/17 07:42 01/21/17 07:42 Intake & Output 01/20/17 01/21/17 01/22/17 06:59 06:59 06:59 Intake Total 243 1500 Output Total 0 1400 Balance 243 100 Weight 82.3 kg 81.9 kg GENERAL: No acute distress HEENT: Conjunctiva clear, nonicteric, moist mucous membranes, no JVD, midline trachea RESPIRATORY: Bilateral wheezes CARDIAC: Regular rate and rhythm, no murmurs/gallops/rubs ABDOMEN: Soft, nondistended, nontender, positive bowel sounds, no rebound, no guarding EXTREMETIES: No edema, cyanosis, clubbing NEUROLOGIC: Alert, oriented to person/place/time, CN's grossly intact, no focal deficits SKIN: No rash, wounds PSYCH: Normal mood, normal affect Results Laboratory Results: 01/21/17 04:45 01/21/17 04:45 01/21/17 01/21/17 04:45 04:45 WBC 15.3 H RBC 4.64 Hgb 11.7 L Hct 35.9 L MCV 78 L MCH 25.3 L MCHC 32.7 RDW 15.7 H Plt Count 363 Seg Neutrophils % 88.3 H Lymphocytes % 8.2 L Monocytes % 3.2 Eosinophils % 0.1 Basophils % 0.2 Absolute Neutrophils 13.5 H Absolute Lymphocytes 1.3 Absolute Monocytes 0.5 Absolute Eosinophils 0.0 Absolute Basophils 0.0 Sodium 144.1 Potassium 3.9 Chloride 106 Carbon Dioxide 27 Anion Gap 11 BUN 10 Creatinine 0.57 Est GFR ( Amer) > 60 Est GFR (Non-Af Amer) > 60 Glucose 211 H Calcium 9.3 Impressions: Chest X-Ray 01/19/17 20:04 IMPRESSION: NO ACUTE RADIOGRAPHIC FINDING IN THE CHEST. Assessment & Plan - Diagnosis (1) Acute respiratory failure with hypoxemia Is this a current diagnosis for this admission?: YesPlan: Wean oxygen as tolerated. (2) COPD with exacerbation Is this a current diagnosis for this admission?: YesPlan: Continue IV Solu-Medrol. Bronchodilators. Patient will need to follow-up with Dr. Patel of pulmonary medicine after discharge. She had a previously scheduled appointment on 01/21/2017 that she will have to reschedule. She has had difficulty complying with outpatient medications secondary to lack of insurance. (3) GERD (gastroesophageal reflux disease) Is this a current diagnosis for this admission?: Yes (4) Hypertension Qualifiers: Hypertension type: essential hypertension Qualified Code(s): I10 - Essential (primary) hypertension Is this a current diagnosis for this admission?: YesPlan: Beta-radha was discontinued secondary to uncontrolled asthma. Patient was started on Norvasc 5 mg daily. - Time Time Spent with patient: 25-34 minutes Anticipated discharge: Home Within: within 48 hours
[2017-01-21] MEDS: BUDESONIDE/FORMOTEROL 160-4.5 MCG 60 PUFF/6 GM MDI IH SCH ×2 (10:56→21:52)
[2017-01-21] MEDS: AMLODIPINE BESYLATE 5 MG TABLET PO SCH (10:57)
[2017-01-21] MEDS: FLUTICASONE NASAL SPRAY 50 MCG/SPRY 120 SPRAY/16 GM NASL SCH ×2 (10:57→21:52)
[2017-01-21] MEDS: DOCUSATE SODIUM 100 MG CAPSULE PO SCH ×2 (10:59→17:37)
[2017-01-21] MEDS: MONTELUKAST SODIUM 10 MG TABLET PO SCH (21:52)
[2017-01-22] MEDS: IPRATROPIUM/ALBUTEROL 0.5-2.5 MG/3 ML AMPUL NEB SCH ×4 (01:12→19:52)
[2017-01-22] MEDS: HEPARIN SOD (PORCINE) 5,000 UNIT/ML 1 ML SYRINGE SUBCUT SCH ×3 (04:52→21:54)
[2017-01-22] MEDS: METHYLPREDNISOLONE INJ 40 MG/1 ML SDV IV SCH (05:11)
[2017-01-22] MEDS: LANSOPRAZOLE 30 MG TAB.RAP.DR PO SCH ×2 (05:13→18:07)
[2017-01-22] MEDS ORDERED: INSULIN LISPRO 100 UNIT/ML 3 ML VIAL SUBCUT PRN (07:30)
[2017-01-22] MEDS ORDERED: DEXTROSE 40% GEL 15 GM TUBE PO PRN ×2 (07:30)
[2017-01-22] MEDS ORDERED: DEXTROSE 50%-WATER 25 GM/50 ML DISP.SYRIN IV PRN ×2 (07:30)
[2017-01-22] MEDS ORDERED: GLUCAGON,HUMAN RECOMB 1 MG INJ IM PRN (07:30)
[2017-01-22] MEDS ORDERED: ALBUTEROL SULFATE 0.083% NEB 2.5 MG/3 ML AMPUL NEB PRN (07:31)
--- NOTE | 2017-01-22 09:08 | PDOC PROGRESS REPORT ---
Subjective Progress Note for:: 01/22/17 Subjective:: Patient is still feeling short of breath. She feels generally unwell. She occasionally feels feverish. She has a nonproductive cough. Physical Exam Vital Signs: Temp Pulse Resp BP Pulse Ox 97.6 F 109 H 18 150/88 H 97 01/22/17 08:00 01/22/17 08:08 01/22/17 08:08 01/22/17 08:00 01/22/17 08:08 Intake & Output 01/21/17 01/22/17 01/23/17 06:59 06:59 06:59 Intake Total 1500 1407 Output Total 1400 1400 Balance 100 7 Weight 81.9 kg 82.3 kg GENERAL: No acute distress HEENT: Conjunctiva clear, nonicteric, moist mucous membranes, no JVD, midline trachea RESPIRATORY: Faint bilateral wheezes, good air excursion CARDIAC: Regular rate and rhythm, no murmurs/gallops/rubs ABDOMEN: Soft, nondistended, nontender, positive bowel sounds, no rebound, no guarding EXTREMETIES: No edema, cyanosis, clubbing NEUROLOGIC: Alert, oriented to person/place/time, CN's grossly intact, no focal deficits SKIN: No rash, wounds PSYCH: Normal mood, normal affect Results Laboratory Results: 01/21/17 04:45 01/21/17 04:45 Impressions: Chest X-Ray 01/19/17 20:04 IMPRESSION: NO ACUTE RADIOGRAPHIC FINDING IN THE CHEST. Assessment & Plan - Diagnosis (1) Acute respiratory failure with hypoxemia Is this a current diagnosis for this admission?: YesPlan: Wean oxygen as tolerated. (2) COPD with exacerbation Is this a current diagnosis for this admission?: YesPlan: Discontinue IV Solu-Medrol. Start prednisone 40 mg daily. Continue Symbicort, Singulair and bronchodilators. Start oral azithromycin. Patient will need to follow-up with Dr. Patel of pulmonary medicine after discharge. She had a previously scheduled appointment on 01/21/2017 that she will have to reschedule. She has had difficulty complying with outpatient medications secondary to lack of insurance. (3) GERD (gastroesophageal reflux disease) Is this a current diagnosis for this admission?: YesPlan: Continue Prevacid. (4) Hypertension Qualifiers: Hypertension type: essential hypertension Qualified Code(s): I10 - Essential (primary) hypertension Is this a current diagnosis for this admission?: YesPlan: Beta-radha was discontinued secondary to uncontrolled asthma. Patient started on Norvasc 5 mg daily. (5) Hyperglycemia, drug-induced Is this a current diagnosis for this admission?: YesPlan: No previous history of diabetes. Check hemoglobin A1c. Sliding scale insulin coverage while on steroids. - Time Time Spent with patient: 35 or more minutes
[2017-01-22] MEDS ORDERED: METHYLPREDNISOLONE INJ 40 MG/1 ML SDV IV SCH (10:00)
[2017-01-22] MEDS: DOCUSATE SODIUM 100 MG CAPSULE PO SCH ×2 (11:07→18:07)
[2017-01-22] MEDS: AZITHROMYCIN 250 MG TABLET PO SCH (11:08)
[2017-01-22] MEDS: PREDNISONE 20 MG TABLET PO SCH (11:08)
[2017-01-22] MEDS: AMLODIPINE BESYLATE 5 MG TABLET PO SCH (11:09)
[2017-01-22] MEDS: BUDESONIDE/FORMOTEROL 160-4.5 MCG 60 PUFF/6 GM MDI IH SCH ×2 (11:13→22:10)
[2017-01-22] MEDS: FLUTICASONE NASAL SPRAY 50 MCG/SPRY 120 SPRAY/16 GM NASL SCH ×2 (11:13→22:10)
--- NOTE | 2017-01-22 13:24 | Physician Advisory Note ---
Physician Advisor ProgressNote .: [facility] medical record for this patient. Physician Advisor Statement: Please consider documentin. "Possible Acute Bronchitis" [or what tx'ing with Zithromax] Thanks! CK
[2017-01-22] MEDS ORDERED: MAG HYDROX/AL HYDROX/SIMETH SUSP 30 ML UDCUP PO PRN (13:59)
[2017-01-22] MEDS: MONTELUKAST SODIUM 10 MG TABLET PO SCH (22:10)
[2017-01-23] MEDS: IPRATROPIUM/ALBUTEROL 0.5-2.5 MG/3 ML AMPUL NEB SCH ×3 (01:56→13:41)
[2017-01-23] MEDS: HEPARIN SOD (PORCINE) 5,000 UNIT/ML 1 ML SYRINGE SUBCUT SCH ×2 (04:57→16:08)
[2017-01-23] MEDS: LANSOPRAZOLE 30 MG TAB.RAP.DR PO SCH (04:57)
[2017-01-23 05:10] LABS: HEMOGLOBIN 12.8 g/dL (12.0-15.5); HGB HCT DIFFERENCE -0.6; MEAN CORPUSCULAR HEMOGLOBIN 25.4 pg (27.0-33.4); MEAN CORPUSCULAR HGB CONC 32.7 g/dL (32.0-36.0); MEAN CORPUSCULAR VOLUME 78 fl (80-97); RED BLOOD COUNT 5.02 10^6/uL (3.72-5.28); RED CELL DISTRIBUTION WIDTH 15.4 % (11.5-14.0); WHITE BLOOD COUNT 18.1 10^3/uL (4.0-10.5)
[2017-01-23 05:21] LABS: ANION GAP 8 (5-19); BLOOD UREA NITROGEN 15 mg/dL (7-20); CARBON DIOXIDE 37 mmol/L (22-30); CHLORIDE 99 mmol/L (98-107); CREATININE RESULT 0.65 mg/dL (0.52-1.25); GLUCOSE 147 mg/dL (75-110); POTASSIUM 3.2 mmol/L (3.6-5.0); SODIUM 143.5 mmol/L (137-145)
[2017-01-23 05:36] LABS: BASOPHILS % (MANUAL) 0 % (0-2); EOSINOPHILS % (MANUAL) 0 % (0-6); LYMPHOCYTES % (MANUAL) 17 % (13-45); TOTAL CELLS COUNTED 100
[2017-01-23 05:41] LABS: ANISOCYTOSIS SLIGHT; HYPOCHROMASIA SLIGHT; MICROCYTOSIS SLIGHT; OVALOCYTES SLIGHT; TARGET CELLS SLIGHT; TEAR DROP CELLS SLIGHT
--- NOTE | 2017-01-23 10:48 | RADIOLOGY REPORT (SQ) ---
EXAM DESCRIPTION: CT ABD/PELVIS WITH IV ONLY COMPLETED DATE/TIME: 01/23/2017 10:28 am REASON FOR STUDY: LLQ pain, leukocytosis COMPARISON: CTA CHEST 12/11/2016, 09/24/2016 TECHNIQUE: CT scan of the abdomen and pelvis performed using helical scanning technique with dynamic intravenous contrast injection. No oral contrast. Images reviewed with lung, soft tissue, and bone windows. Reconstructed coronal and sagittal MPR imag es reviewed. Delayed images for evaluation of the urinary system also acquired. All images stored on PACS. All CT scanners at this facility use dose modulation, iterative reconstruction, and/or weight based d osing when appropriate to reduce radiation dose to as low as reasonably achievable (ALARA). [facility]: Dose Right [facility]: CareDose [facility]: Dose Right [facility]: Teradose 4D [facility]: Direct Access Software CONTRAST TYPE AND DOSE: contrast/concentration: Isovue 370.00 mg/ml; Total Contrast Delivered: 90.0 ml; Total Saline Delivered: 35.6 ml RENAL FUNCTION: Creatinine 0.65 RADIATION DOSE: Up-to-date CT equipment and radiation dose reduction techniques were employed. CTDIv ol: 7.4 - 8.9 mGy. DLP: 778 mGy-cm.. LIMITATIONS: Abdominal pain, no oral contrast FINDINGS: LOWER CHEST: Persistent atelectasis and volume loss in the right middle lobe. LIVER: Normal size. No masses. No dilated ducts. Multiple hepatic cysts are present, the largest is 5.2 cm the right lobe liver subdiaphragmatic surface SPLEEN: Normal size. No focal lesions. PANCREAS: No masses. No significant calcifications. No adjacent inflammation or peripancreatic fluid collections. Pancreatic duct not dilated. GALLBLADDER: No identified stones by CT criteria. No inflammatory changes to suggest cholecystitis. ADRENAL GLANDS: No significant masses or asymmetry. RIGHT KIDNEY AND URETER: No solid masses. 3 cm right lower pole renal cortical cyst. No significant calcifications. No hydronephrosis or hydroureter. LEFT KIDNEY AND URETER: No solid masses. No significant calcifications. No hydronephrosis or hydr oureter. AORTA AND VESSELS: No aneurysm. No dissection. Renal arteries, SMA, celiac without stenosis. RETROPERITONEUM: No retroperitoneal adenopathy, hemorrhage or masses. BOWEL AND PERITONEAL CAVITY: No masses or inflammatory changes. No free fluid or peritoneal masses. There are few descending colon diverticuli without CT signs of acute diverticulitis APPENDIX: Normal. PELVIS: No mass. No free fluid. Normal bladder. ABDOMINAL WALL: No masses. No hernias. BONES: No significant or acute findings. OTHER: No other significant finding. IMPRESSION: No CT findings to explain history of left lower quadrant pain TECHNICAL DOCUMENTATION: JOB ID: [id number] Quality ID # [id number]: Final reports with documentation of one or more dose reduction techniques (e.g., Au tomated exposure control, adjustment of the mA and/or kV according to patient size, use of iterative reconstruction technique) 2010 [employer]- All Rights Reserved
[2017-01-23] MEDS: DOCUSATE SODIUM 100 MG CAPSULE PO SCH (11:09)
[2017-01-23] MEDS: AZITHROMYCIN 250 MG TABLET PO SCH (11:10)
[2017-01-23] MEDS: AMLODIPINE BESYLATE 5 MG TABLET PO SCH (11:10)
[2017-01-23] MEDS: PREDNISONE 20 MG TABLET PO SCH (11:10)
[2017-01-23] MEDS: FLUTICASONE NASAL SPRAY 50 MCG/SPRY 120 SPRAY/16 GM NASL SCH (11:10)
[2017-01-23] MEDS: BUDESONIDE/FORMOTEROL 160-4.5 MCG 60 PUFF/6 GM MDI IH SCH (11:10)
[2017-01-23 13:39] VITALS: BP 148/75
--- NOTE | 2017-01-23 15:35 | PDOC DISCHARGE SUMMARY ---
General - Admit/Disc Date/PCP Admission Date/Primary Care Provider: 01/20/17 00:48 Discharge Date: 01/23/17 - Discharge Diagnosis (1) Acute respiratory failure with hypoxemia Is this a current diagnosis for this admission?: Yes (2) COPD with exacerbation Is this a current diagnosis for this admission?: Yes (3) GERD (gastroesophageal reflux disease) Is this a current diagnosis for this admission?: Yes (4) Hypertension Is this a current diagnosis for this admission?: Yes (5) Hyperglycemia, drug-induced Is this a current diagnosis for this admission?: Yes - Additional Information Resuscitation Status: Full Code Discharge Diet: Cardiac Discharge Activity: Activity As Tolerated Home Medications: Albuterol Sulfate [Albuterol Sulfate 2.5mg/3 mL] 1 vial IH [id number] PRN 01/20/17 Amlodipine Besylate [Norvasc 5 mg Tablet] 5 mg PO DAILY #30 tablet 01/23/17 Azithromycin [Zithromax 250 mg Tablet] 500 mg PO DAILY #4 tablet 01/23/17 Budesonide/Formoterol Fumarate [Symbicort HFA 160-4.5 mcg Inhaler 6 gm] 2 puff IH Q12 #1 inhaler 01/23/17 Docusate Sodium [Colace 100 mg Capsule] 100 mg PO BID #60 capsule 01/23/17 Lansoprazole [Prevacid 30 mg Odt Tablet] 30 mg PO BID@0600,1700 #60 tab.rap. 01/23/17 Prednisone [Deltasone 20 mg Tablet] 40 mg PO DAILY #5 tablet 01/23/17 History of Present Illness Patient complains of: Shortness of breath History of Present Illness: ADDIE STEWART is a 56 year old female with a past medical history of aspirin exacerbated respiratory disease, nasal polyps and GERD who has been in her usual state of health until approximately 6 hours prior to presentation. She presents with a nonproductive cough postnasal drip without fever or sore throat prompting her to seek evaluation emergency room. Patient denies recent change in medications. In the emergency room she is severely tachypneic with wheezing and hypoxia requiring continuous nebulizer treatment, stress dose steroids and magnesium. She is referred to the hospital for admission Hospital Course Hospital Course: Patient was admitted for hypoxemic respiratory failure associated with acute exacerbation of asthma. She was initially placed on IV Solu-Medrol and bronchodilators and gradually improved. She was eventually transitioned to oral prednisone and continue to make improvement. She is having difficulty complying with outpatient regimen due to lack of insurance and financial resources. At one point she was qualified for indigent program through [employer] for steroid inhaler but she no longer has access to this as it after 1 year. She has been followed by Dr. Patel of pulmonary medicine and has occasionally received samples from his office. As she is medically stable I have discharged her home on oral prednisone taper, Symbicort , albuterol. She will need follow-up with Dr. Patel. During hospitalization she had left lower quadrant pain. CT of the abdomen/ pelvis showed diverticulosis without evidence of acute diverticulitis. No other acute process in the abdomen was noted. Patient will need to follow-up with her primary care provider and [facility] if this persist. With regard to patient's hypertension she was taken off of beta-radha secondary to theoretical contribution to reactive airway disease and started on Norvasc. Blood pressure stable at time of discharge. Physical Exam Vital Signs: Temp Pulse Resp BP Pulse Ox 98.2 F 105 H 18 148/75 H 96 01/23/17 13:32 01/23/17 13:42 01/23/17 13:42 01/23/17 13:32 01/23/17 13:42 Intake & Output 01/22/17 01/23/17 01/24/17 06:59 06:59 06:59 Intake Total 1407 1143 Output Total 1400 1400 Balance 7 -257 Weight 82.3 kg 82.7 kg GENERAL: No acute distress HEENT: Conjunctiva clear, nonicteric, moist mucous membranes, no JVD, midline trachea RESPIRATORY: Clear to auscultation bilaterally, no wheezes, no rhonchi CARDIAC: Regular rate and rhythm, no murmurs/gallops/rubs ABDOMEN: Soft, nondistended, nontender, positive bowel sounds, no rebound, no guarding EXTREMETIES: No edema, cyanosis, clubbing NEUROLOGIC: Alert, oriented to person/place/time, CN's grossly intact, no focal deficits SKIN: No rash, wounds PSYCH: Normal mood, normal affect Results Laboratory Results: 01/23/17 03:52 01/23/17 03:52 01/23/17 01/23/17 03:52 03:52 WBC 18.1 H RBC 5.02 Hgb 12.8 Hct 39.0 MCV 78 L MCH 25.4 L MCHC 32.7 RDW 15.4 H Plt Count 319 Seg Neutrophils % Not Reportable Lymphocytes % Not Reportable Monocytes % Not Reportable Eosinophils % Not Reportable Basophils % Not Reportable Absolute Neutrophils Not Reportable Absolute Lymphocytes Not Reportable Absolute Monocytes Not Reportable Absolute Eosinophils Not Reportable Absolute Basophils Not Reportable Sodium 143.5 Potassium 3.2 L Chloride 99 Carbon Dioxide 37 H Anion Gap 8 BUN 15 Creatinine 0.65 Est GFR ( Amer) > 60 Est GFR (Non-Af Amer) > 60 Glucose 147 H Calcium 9.0 Impressions: Chest X-Ray 01/19/17 20:04 IMPRESSION: NO ACUTE RADIOGRAPHIC FINDING IN THE CHEST. Abdomen/Pelvis CT 01/23/17 00:00 IMPRESSION: No CT findings to explain history of left lower quadrant pain Qualifiers PATEINT BEING DISCHARGED WITH ANY OF THE FOLLOWING DIAGNOSIS?: No Plan Time Spent: Less than 30 Minutes
== END 2017-01-23 16:00 | disposition home or self-care (01) | DRG 190 ==
LOC: ER 18:43 → EH 01-20 00:48 → UNDOADMIN 01-20 00:51 → EH 01-20 00:51 → 4N 01-20 02:03
PROVIDERS: ADMIT Internal Medicine; ATTEND Internal Medicine
DX: J44.1 Chronic obstructive pulmonary disease with (acute) exacerbation (principal); J96.01 Acute respiratory failure with hypoxia; J45.901 Unspecified asthma with (acute) exacerbation; K21.9 Gastro-esophageal reflux disease without esophagitis; K57.90 Diverticulosis of intestine, part unspecified, without perforation or abscess without bleeding; J33.9 Nasal polyp, unspecified; I10 Essential (primary) hypertension; J34.89 Other specified disorders of nose and nasal sinuses; T38.0X5A Adverse effect of glucocorticoids and synthetic analogues, initial encounter; R73.9 Hyperglycemia, unspecified; Z88.6 Allergy status to analgesic agent; Z79.899 Other long term (current) drug therapy; Z87.891 Personal history of nicotine dependence; Z59.6 Low income; Z79.52 Long term (current) use of systemic steroids; Y92.239 Unspecified place in hospital as the place of occurrence of the external cause
CPT/HCPCS: 36415; 71010; 74177; 80048; 80053; 82550; 82553; 82962; 83036; 84443; 84484; 85025; 93005; 93010; 94640; 96365; 96375; 99285; J1644; J2920; J2930; J3475; J3490; J7512; J7620

== ENCOUNTER 2017-02-02 20:14 | Emergency (ER) | payer SELFPAY ==
[2017-02-02] MEDS ORDERED: IPRATROPIUM/ALBUTEROL 0.5-2.5 MG/3 ML AMPUL NEB ONE (21:04)
[2017-02-02] MEDS ORDERED: METHYLPREDNISOLONE INJ 125 MG/2 ML SDV IV ONE (21:05)
--- NOTE | 2017-02-02 21:14 | ER Document Report ---
ED Respiratory Problem - General Chief Complaint: Shortness Of Breath Stated Complaint: COUGHING AND TORUBLE BREATHING Time Seen by Provider: 02/02/17 20:59 Notes: The patient is a 56-year-old female, past medical history asthma, nasal polyps, GERD, presents with 1 day of increasing shortness of breath and cough. She was admitted to [facility] last week and said that she was feeling better after finishing her prednisone. She still has albuterol at home and has an appointment with Dr. Patel next week. Patient denies chest pain, leg swelling, fevers, hemoptysis, back pain, nausea, vomiting, fevers or headache. TRAVEL OUTSIDE OF THE [place] IN LAST 30 DAYS: No - Related Data Allergies/Adverse Reactions: benzonatate [From Wes Blanco] Allergy (Verified 11/06/16 16:41) NSAIDS (Non-Steroidal Anti-Inflamma Allergy (Verified 11/06/16 16:41) Past Medical History - General Information source: Patient - Social History Smoking Status: Unknown if Ever Smoked Family History: COPD, Hypertension - Past Medical History Cardiac Medical History: Reports: Hx Hypertension Pulmonary Medical History: Reports: Hx Asthma - Aspirin associated asthma, Hx COPD, Hx Pneumonia Renal/ Medical History: Denies: Hx Peritoneal Dialysis Psychiatric Medical History: Denies: Hx Depression - Immunizations Hx Diphtheria, Pertussis, Tetanus Vaccination: Yes Review of Systems - Review of Systems Notes: REVIEW OF SYSTEMS: CONSTITUTIONAL: -fevers, -chills EENT: -eye pain, -difficulty swallowing, -nasal congestion CARDIOVASCULAR:-chest pain, -syncope. RESPIRATORY: +cough, +SOB GASTROINTESTINAL: -abdominal pain, -nausea, -vomiting, -diarrhea GENITOURINARY: -dysuria, -hematuria MUSCULOSKELETAL: -back pain, -neck pain SKIN: -rash or skin lesions. HEMATOLOGIC: -easy bruising or bleeding. LYMPHATIC: -swollen, enlarged glands. NEUROLOGICAL: -altered mental status or loss of consciousness, -headache, - neurologic symptoms PSYCHIATRIC: -anxiety, -depression. ALL OTHER SYSTEMS REVIEWED AND NEGATIVE. Physical Exam - Vital signs Vitals: Temp Pulse Resp BP Pulse Ox 99.7 F 139 H 26 H 124/82 94 02/02/17 20:42 02/02/17 20:42 02/02/17 20:42 02/02/17 20:42 02/02/17 20:42 - Notes Notes: PHYSICAL EXAMINATION: GENERAL: Well-appearing, well-nourished and in no acute distress. HEAD: Atraumatic, normocephalic. EYES: Pupils equal round and reactive to light, extraocular movements intact, sclera anicteric, conjunctiva are normal. ENT: nares patent, oropharynx clear without exudates. Moist mucous membranes. NECK: Normal range of motion, supple without lymphadenopathy LUNGS: Diffuse wheezing. Mild tachypnea. HEART: Tachycardia, regular rhythm ABDOMEN: Soft, nontender, normoactive bowel sounds. No guarding, no rebound. No masses appreciated. EXTREMITIES: Normal range of motion, no pitting or edema. No cyanosis. NEUROLOGICAL: Cranial nerves grossly intact. Normal speech, normal gait. Normal sensory and motor exams. PSYCH: Normal mood, normal affect. SKIN: Warm, Dry, normal turgor, no rashes or lesions noted. Course - Re-evaluation Re-evalutation: After DuoNeb and steroids, patient feels much better. CTA chest obtained due to recent hospitalization and tachycardia, which did not show any evidence of pulmonary embolism or pneumonia. Labs are unremarkable, other than a slight hypokalemia which was corrected in the emergency room. Her tachycardia improved after IV fluids and may be related to beta agonists use and coughing. Will begin patient on a long steroid taper. 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 Given strict return precautions and she understands. - Vital Signs Vital signs: Temp Pulse Resp BP Pulse Ox 99.7 F 139 H 28 H 140/111 H 95 02/02/17 20:42 02/02/17 20:42 02/02/17 22:01 02/02/17 22:01 02/02/17 22:01 - Laboratory Result Diagrams: 02/02/17 21:16 02/02/17 21:16 Laboratory results interpreted by me: 02/02/17 02/02/17 02/02/17 21:16 21:16 21:16 MCV 78 L MCH 26.3 L RDW 15.5 H Monocytes % 17.7 H Absolute Monocytes 1.5 H VBG pH 7.45 H Potassium 3.3 L Glucose 122 H Creatine Kinase 221 H - Diagnostic Test Radiology reviewed: Image reviewed, Reports reviewed Radiology results interpreted by me: CXR: NAD CTA Chest: No PE. - EKG Interpretation by Me EKG shows normal: Sinus rhythm, [place], Intervals, QRS Complexes, ST-T Waves Rate: Tachycardia Discharge - Discharge Clinical Impression: Asthma exacerbation Condition: Stable Disposition: HOME, SELF-CARE Additional Instructions: ASTHMA: You have been diagnosed as having asthma. This is a condition where there is episodic tightness in the bronchial tubes. Allergies, infections, and polluted or cold air may be contributing factors. Emergency treatment of a severe asthma attack may include adrenaline shots , or bronchodilator aerosol. You may feel lightheaded, have a decreased exercise tolerance and a rapid pulse for an hour or two. Rest and get plenty of fluids. Home treatment of asthma requires bronchodilator drugs. These can be administered by injection, inhalation, or by mouth. Antibiotics and corticosteroids may be required for some patients. You should avoid chemical fumes, dusts, pollens, and exercising in very cold or dry air. If you smoke, stop!! If you develop a fever, increased wheezing, chest pain, or severe shortness of breath, you should contact the doctor immediately. STEROID MEDICATION: You have been given an injection of or oral medicine of the cortisone/ steroid class. This medication is used to control inflammation or allergy. Krystian t is usually only given for a short period of time, until the acute process subsides. There are usually no side effects from short-term use of cortisone-like medications. Some persons feel an increased sense of well-being and are not sleepy at bedtime. Long-term use of cortisone medications is best avoided, unless required for a severe condition. If your condition does not remit, or relapses after the course of corticosteroid medication, you should consult your physician. INHALED BRONCHODILATORS: You have received treatment(s) of and/or prescription for an inhaled bronchodilator -- a medication which stimulates the airways in the lung to dilate. This improves the flow of air in asthma, bronchitis, and emphysema. These medicines have some similarity to adrenaline, and can cause similar side effects: shakiness, racing heart, and a sense of nervousness. These side effects decrease with time. Contact your doctor if these side effects are severe. Do not over-use the medicine. Too-frequent use of the inhaler may make it ineffective. Call your doctor if the inhaler is not controlling your symptoms at the prescribed doses. SMOKING: If you smoke, you should stop smoking. The tar and chemicals in cigarette smoke are harmful. Smoking has been shown to cause: emphysema chronic bronchitis lung cancer mouth and throat cancer stomach and pancreas cancer premature aging defects In addition, smoking increases ear and lung infections in children of smokers. USE OF ACETAMINOPHEN: Acetaminophen may be taken for pain relief or fever control. It's much safer than aspirin, offering a wider range of "safe" dosages. It is safe during . Some brand names are Tylenol, Panadol, Datril, Anacin 3, Tempra, and Liquiprin. Acetaminophen can be repeated every four hours. The following are maximum recommended dosages: USE OF ACETAMINOPHEN (Tylenol): Acetaminophen may be taken for pain relief or fever control. It's much safer than aspirin, offering a wider range of "safe" dosages. It is safe during . Some brand names are Tylenol, Panadol, Datril, Anacin 3, Tempra, and Liquiprin. Acetaminophen can be repeated every four hours. The following are maximum recommended dosages: WEIGHT Dose Drops Elixir Chewable( 80mg) (LBS.) drprs=droppers tsp=teaspoon 6 40 mg 0.4 ml (1/2) 6-11 80 mg 0.8 ml (full) tsp 1 tab 12-16 120 mg 1 1/2 drprs 3/4 tsp 1 1/2 tabs 17-23 160 mg 2 drprs 1 tsp 2 tabs 24-30 240 mg 3 drprs 1 1/2 tsp 3 tabs 30-35 320 mg 2 tsp 4 tabs 36-41 360 mg 2 1/4 tsp 4 1/2 tabs 42-47 400 mg 2 1/2 tsp 5 tabs 48-53 480 mg 3 tsp 6 tabs 54-59 520 mg 3 1/4 tsp 6 1/2 tabs 60-64 560 mg 3 1/2 tsp 7 tabs 65-70 600 mg 3 3/4 tsp 7 1/2 tabs 71-76 640 mg 4 tsp 8 tabs 77-82 720 mg 4 1/2 tsp 9 tabs 83-88 800 mg 5 tsp 10 tabs >89 pounds or adults 650 mg to 900 mg Acetaminophen can be repeated every four hours. Maximum dose not to exceed 4000 mg a day. These maximum recommended dosages are slightly higher than the dosages written on the product container, but these dosages are very safe and below the toxic dosage for acetaminophen. FOLLOW-UP CARE: If you have been referred to a physician for follow-up care, call the physician s office for an appointment as you were instructed or within the next two days. If you experience worsening or a significant change in your symptoms, notify the physician immediately or return to the Emergency Department at any time for re-evaluation. Prescriptions: Prednisone [Deltasone 10 mg Tablet] 10 mg PO ASDIR PRN #21 tablet PRN Reason: Referrals: [facility] [Primary Care Provider] - Follow up as needed
[2017-02-02 21:27] LABS: ABSOLUTE BASOPHILS # (AUTO) 0.1 10^3/uL (0.0-0.2); ABSOLUTE EOSINOPHILS # (AUTO) 0.3 10^3/uL (0.0-0.6); ABSOLUTE LYMPHOCYTES (AUTO) 1.3 10^3/uL (0.5-4.7); ABSOLUTE MONOCYTES (AUTO) 1.5 10^3/uL (0.1-1.4); ABSOLUTE NEUT (AUTO) 5.6 10^3/uL (1.7-8.2); BASOPHILS % (AUTO) 0.6 % (0-2); EOSINOPHILS % (AUTO) 3.5 % (0-6); HEMATOCRIT 37.8 % (36.0-47.0); HEMOGLOBIN 12.7 g/dL (12.0-15.5); HGB HCT DIFFERENCE 0.3; LYMPHOCYTES % (AUTO) 14.4 % (13-45); MEAN CORPUSCULAR HEMOGLOBIN 26.3 pg (27.0-33.4); MEAN CORPUSCULAR HGB CONC 33.7 g/dL (32.0-36.0); MEAN CORPUSCULAR VOLUME 78 fl (80-97); MONOCYTES % (AUTO) 17.7 % (3-13); RED BLOOD COUNT 4.84 10^6/uL (3.72-5.28); RED CELL DISTRIBUTION WIDTH 15.5 % (11.5-14.0); SEGMENTED NEUTROPHILS % (AUTO) 63.8 % (42-78); VENOUS BLOOD BASE EXCESS 5.2 mmol/L; VENOUS BLOOD PCO2 44.5 mmHg (35-63); VENOUS BLOOD PH 7.45 (7.30-7.42); WHITE BLOOD COUNT 8.7 10^3/uL (4.0-10.5)
--- NOTE | 2017-02-02 21:28 | RADIOLOGY REPORT (SQ) ---
EXAM DESCRIPTION: CHEST SINGLE VIEW COMPLETED DATE/TIME: 02/02/2017 9:13 pm REASON FOR STUDY: SOB COMPARISON: 01/19/2017 EXAM PARAMETERS: NUMBER OF VIEWS: One view. TECHNIQUE: Single frontal radiographic view of the chest acquired. RADIATION DOSE: NA LIMITATIONS: None. FINDINGS: LUNGS AND PLEURA: No opacities, masses or pneumothorax. No pleural effusion. MEDIASTINUM AND HILAR STRUCTURES: No masses. Contour normal. HEART AND VASCULAR STRUCTURES: Heart normal in size. Normal vasculature. BONES: No acute findings. HARDWARE: None in the chest. OTHER: No other significant finding. IMPRESSION: NO ACUTE RADIOGRAPHIC FINDING IN THE CHEST. TECHNICAL DOCUMENTATION: JOB ID: [id number]
[2017-02-02 21:44] LABS: ALANINE AMINOTRANSFERASE 37 U/L (9-52); ALBUMIN 3.9 g/dL (3.5-5.0); ALKALINE PHOSPHATASE 100 U/L (38-126); ANION GAP 11 (5-19); ASPARTATE AMINO TRANSFERASE 23 U/L (14-36); BILIRUBIN,DIRECT 0.2 mg/dL (0.0-0.4); BILIRUBIN,TOTAL 0.8 mg/dL (0.2-1.3); BLOOD UREA NITROGEN 8 mg/dL (7-20); CALCIUM 8.9 mg/dL (8.4-10.2); CARBON DIOXIDE 26 mmol/L (22-30); CHLORIDE 104 mmol/L (98-107); CREATINE KINASE 221 U/L (30-135); GLUCOSE 122 mg/dL (75-110); POTASSIUM 3.3 mmol/L (3.6-5.0); TOTAL PROTEIN 6.9 g/dL (6.3-8.2)
[2017-02-02 21:57] LABS: TROPONIN I < 0.012 ng/mL
[2017-02-02] MEDS ORDERED: ONDANSETRON HCL INJ/PF 4 MG/2 ML SDV IV ONE (22:03)
[2017-02-02] MEDS ORDERED: POTASSIUM CHLORIDE 10 MEQ TABLET.SA PO ONE (22:04)
[2017-02-02] MEDS ORDERED: NORMAL SALINE 1000 ML 1,000 ML IV ONE (22:24)
--- NOTE | 2017-02-02 23:24 | RADIOLOGY REPORT (SQ) ---
EXAM DESCRIPTION: CTA CHEST COMPLETED DATE/TIME: 02/02/2017 11:12 pm REASON FOR STUDY: tachypnea, recent hospitalization, tachycardia COMPARISON: 09/24/2016 TECHNIQUE: CT scan of the chest performed using helical scanning technique with dynamic intravenous contrast injection. Images reviewed with lung, soft tissue and bone windows. Reconstructed coronal and sagittal MPR images reviewed. Additional 3 dimensional post-processing performed to develop Maximal Intensity Projection images (CO P). All images stored on PACS. All CT scanners at this facility use dose modulation, iterative reconstruction, and/or weight based d osing when appropriate to reduce radiation dose to as low as reasonably achievable (ALARA). [facility]: Dose Right [facility]: CareDose [facility]: Dose Right [facility]: Teradose 4D [facility]: [employer] CONTRAST TYPE AND DOSE: contrast/concentration: Isovue 370.00 mg/ml; Total Contrast Delivered: 100.0 ml; Total Saline Delivered: 45.0 ml RENAL FUNCTION: GFR > 60. RADIATION DOSE: Up-to-date CT equipment and radiation dose reduction techniques were employed. CTDIv ol: 9.9 - 16.0 mGy. DLP: 579 mGy-cm. . LIMITATIONS: None. FINDINGS: LUNGS AND PLEURA: No masses, infiltrates, pneumothorax. No pleural effusions, calcificati ons. AORTA AND GREAT VESSELS: No aneurysm or dissection. HEART: No pericardial effusion. PULMONARY ARTERIES: No emboli visualized in the main pulmonary arteries or the segmental branches. HILAR AND MEDIASTINAL STRUCTURES: No identified masses or abnormal nodes. HARDWARE: None in the chest. UPPER ABDOMEN: Multiple hepatic cysts. THYROID AND OTHER SOFT TISSUES: No masses. No adenopathy. BONES: No acute or significant finding. 3D MIPS: Confirm above findings. OTHER: No other significant finding. IMPRESSION: NORMAL CTA OF THE CHEST. NO PULMONARY EMBOLI. TECHNICAL DOCUMENTATION: JOB ID: [id number] Quality ID # [id number]: Final reports with documentation of one or more dose reduction techniques (e.g., Au tomated exposure control, adjustment of the mA and/or kV according to patient size, use of iterative reconstruction technique) 2010 [employer]- All Rights Reserved
[2017-02-03 00:50] VITALS: BP 130/72
--- NOTE | 2017-02-03 12:53 | EKG REPORT ---
SEVERITY:- ABNORMAL ECG - SINUS TACHYCARDIA CONSIDER LEFT VENTRICULAR HYPERTROPHY : Confirmed by: Pennie Wilde MD 03-Feb-2017 12:52:35
== END 2017-02-03 00:48 | disposition home or self-care (01) ==
LOC: ER 20:14
DX: J44.9 Chronic obstructive pulmonary disease, unspecified (principal); R06.02 Shortness of breath; R05 Cough; I10 Essential (primary) hypertension; R00.0 Tachycardia, unspecified; E87.6 Hypokalemia; Z88.8 Allergy status to other drugs, medicaments and biological substances; Z87.01 Personal history of pneumonia (recurrent)
CPT/HCPCS: 93005; 94640; 99285; 96361; 96374; 96375; 36415; 82550; 83690; 85025; 80053; 84484; 82803; 83605; 83880; 71010; 71275; 93010; J2930; J2405; J7030; J7620

== ENCOUNTER → 2017-02-04 | Outpatient (CLI) | payer SELFPAY ==
[2017-02-04 16:52] LABS: ABSOLUTE LYMPHOCYTES (AUTO) 0.7 10^3/uL (0.5-4.7); ABSOLUTE MONOCYTES (AUTO) 0.2 10^3/uL (0.1-1.4); BASOPHILS % (AUTO) 0.1 % (0-2); HEMATOCRIT 36.5 % (36.0-47.0); HEMOGLOBIN 12.2 g/dL (12.0-15.5); HGB HCT DIFFERENCE 0.1; LYMPHOCYTES % (AUTO) 10.5 % (13-45); MEAN CORPUSCULAR HEMOGLOBIN 26.2 pg (27.0-33.4); MEAN CORPUSCULAR HGB CONC 33.4 g/dL (32.0-36.0); MEAN CORPUSCULAR VOLUME 78 fl (80-97); MONOCYTES % (AUTO) 2.8 % (3-13); RED BLOOD COUNT 4.65 10^6/uL (3.72-5.28); RED CELL DISTRIBUTION WIDTH 15.7 % (11.5-14.0); SEGMENTED NEUTROPHILS % (AUTO) 86.6 % (42-78); WHITE BLOOD COUNT 6.9 10^3/uL (4.0-10.5)
[2017-02-06 08:16] LABS: IMMUNOGLOBULIN E 2109 IU/mL (0-100)
[2017-02-07 16:38] LABS: M001-IGE PENICILLIUM CHRYSOGEN <0.10 kU/L (Class 0); M002-IGE CLADOSPORIUM HERBARUM <0.10 kU/L (Class 0); M003-IGE ASPERGILLUS FUMIGATUS <0.10 kU/L (Class 0); M004-IGE MUCOR RACEMOSUS 0.16 kU/L (Class 0/I); M005-IGE CANDIDA ALBICANS 0.88 kU/L (Class II); M006-IGE ALTERNARIA ALTERNATA <0.10 kU/L (Class 0); M008-IGE SETOMELANOMMA ROSTRAT <0.10 kU/L (Class 0); M009-IGE FUSARIUM PROLIFERATUM <0.10 kU/L (Class 0); M012-IGE AUREOBASIDI PULLULANS <0.10 kU/L (Class 0); M013-IGE PHOMA BETAE <0.10 kU/L (Class 0); M014-IGE EPICOCCUM PURPURASCEN <0.10 kU/L (Class 0)
[2017-02-07 18:38] LABS: M010-IGE STEMPHYLIUM HERBARUM 0.21 kU/L (Class 0/I)
== END ==
LOC: OD 16:20
PROVIDERS: ATTEND Internal Medicine Pulmonary Disease
DX: J45.51 Severe persistent asthma with (acute) exacerbation (principal)
CPT/HCPCS: 36415; 82785; 85025; 86003

== ENCOUNTER → 2017-03-10 | Outpatient (CLI) | payer OTHER ==
--- NOTE | 2017-03-11 11:20 | WOMENS IMAGING REPORT ---
EXAM DESCRIPTION: BILAT SCREENING MAMMO W/CAD COMPLETED DATE/TIME: 03/10/2017 2:33 pm REASON FOR STUDY: SCREENING MAMMO Z12.31 ENCNTR SCREEN MAMMOGRAM FOR MALIGNANT NEOPLASM OF KANDICE COMPARISON: None. TECHNIQUE: Standard craniocaudal and mediolateral oblique views of each breast recorded using digita l acquisition. LIMITATIONS: None. FINDINGS: No masses, calcifications or architectural distortion. No areas of suspicion. Read with the assistance of CAD. .[facility] - R2 Cenova Version 1.3 .[facility] - R2 Cenova Version 1.3 .[facility] - R2 Cenova Version 2.4 .[facility] - R2 Cenova Version 2.4 .[facility] - R2 Inventory Coordinator Version 9.2 IMPRESSION: NORMAL MAMMOGRAM. BIRADS 1. BREAST DENSITY: c. The breasts are heterogeneously dense, which may obscure small masses. BIRAD: 1 NEGATIVE RECOMMENDATION: ROUTINE SCREENING COMMENT: The patient has been notified of the results by letter per SA requirements. Additional no tification policies are in place for contacting patient with suspicious or incomplete findings. Quality ID #[id number]: The [employer] recommends an annual screening mammogram for women aged 40 years or over. This facility utilizes a reminder system to ensure that all patients receive reminder letters, and/or direct phone calls for appointments. This includes reminders for routine scr eening mammograms, diagnostic mammograms, or other Breast Imaging Interventions when appropriate. Th is patient will be placed in the appropriate reminder system. The [employer] (ACR) has developed recommendations for screening MRI of the breast s in certain patient populations, to be used in conjunction with mammography. Breast MRI surveillanc e may be appropriate for women with more than 20% lifetime risk of developing breast cancer as deter mined by genetic testing, significant family history of the disease, or history of mantle radiation f or Hodgkins Disease. ACR Practice Guidelines 2008. TECHNICAL DOCUMENTATION: FINDING NUMBER: (1) ASSESSMENT: (1) JOB ID: [id number] [employer]- All Rights Reserved
== END ==
LOC: WI 14:12
DX: Z12.31 Encounter for screening mammogram for malignant neoplasm of breast (principal)
CPT/HCPCS: 77067; G0202

== ENCOUNTER 2017-03-27 19:39 | Inpatient (IN) | payer SELFPAY ==
[2017-03-27] MEDS ORDERED: IPRATROPIUM/ALBUTEROL 0.5-2.5 MG/3 ML AMPUL NEB ONE ×4 (19:59→20:40)
[2017-03-27] MEDS ORDERED: METHYLPREDNISOLONE INJ 125 MG/2 ML SDV IV ONE (19:59)
--- NOTE | 2017-03-27 19:59 | ER Document Report ---
ED Respiratory Problem - General Mode of Arrival: Wheelchair Information source: Patient TRAVEL OUTSIDE OF THE [place] IN LAST 30 DAYS: No - HPI Associated symptoms: None Similar symptoms previously: No Recently seen / treated by doctor: No <AZALIA BELTRÁN - Last Filed: 03/27/17 22:34> <VEDA SALINAS - Last Filed: 03/27/17 23:26> - General Chief Complaint: Breathing Difficulty Stated Complaint: DIFFICULTY BREATHING Time Seen by Provider: 03/27/17 19:57 Notes: Patient is a 56-year-old female who presents to the emergency department today in severe respiratory distress. Patient is in tripod positioning and is speaking in three word sentences. Patient states she takes 20 mg of steroids daily. (AZALIA BELTRÁN) - Related Data Allergies/Adverse Reactions: benzonatate [From Wes Blanco] Allergy (Verified 03/27/17 19:50) NSAIDS (Non-Steroidal Anti-Inflamma Allergy (Verified 03/27/17 19:50) Past Medical History - General Information source: Patient - Social History Smoking Status: Never Smoker Cigarette use (# per day): No Frequency of alcohol use: None Drug Abuse: None Lives with: Family Family History: Reviewed & Not Pertinent, COPD, Hypertension - Past Medical History Cardiac Medical History: Reports: Hx Hypertension Pulmonary Medical History: Reports: Hx Asthma - Aspirin associated asthma, Hx COPD, Hx Pneumonia Surgical Hx: Negative - Immunizations Hx Diphtheria, Pertussis, Tetanus Vaccination: Yes <AZALIA BELTRÁN - Last Filed: 03/27/17 22:34> Review of Systems - Review of Systems -: Yes ROS unobtainable due to patient's medical condition - severe distress Constitutional: No symptoms reported EENT: No symptoms reported Cardiovascular: No symptoms reported Respiratory: See HPI, Short of breath Gastrointestinal: No symptoms reported Genitourinary: No symptoms reported Female Genitourinary: No symptoms reported Musculoskeletal: No symptoms reported Skin: No symptoms reported Hematologic/Lymphatic: No symptoms reported Neurological/Psychological: No symptoms reported -: Yes All other systems reviewed and negative <AZALIA BELTRÁN - Last Filed: 03/27/17 22:34> Physical Exam <AZALIA BELTRÁN - Last Filed: 03/27/17 22:34> <VEDA SALINAS - Last Filed: 03/27/17 23:26> - Vital signs Vitals: Temp Pulse Resp BP Pulse Ox 98.3 F 144 H 26 H 161/89 H 87 L 03/27/17 19:50 03/27/17 19:50 03/27/17 19:50 03/27/17 19:50 03/27/17 19:50 - Notes Notes: Physical Exam: General: Alert, in severe distress. Tearful. HEENT: Normocephalic. Atraumatic. PERRL. Extraocular movements intact. Oropharynx clear. Neck: Supple. Non-tender. Respiratory: Severe respiratory distress. Decreased air movement. Wheezing bilaterally. Cardiovascular: Tachycardic, regular rhythm. Abdominal: Normal Inspection. Non-tender. No distension. Normal Bowel Sounds. Back: Non-tender. No deformity or step off. Extremities: Moves all four extremities. Upper extremities: Normal inspection. Normal ROM. Lower extremities: Normal inspection. No edema. Normal ROM. Neurological: Confused. Psychological: Normal affect. Normal Mood. Skin: Warm. Dry. Normal color. (AZALIA BELTRÁN) Course - Laboratory Result Diagrams: 03/27/17 20:00 03/27/17 20:00 <AZALIA BELTRÁN - Last Filed: 03/27/17 22:34> - Laboratory Result Diagrams: 03/27/17 20:00 03/27/17 20:00 - Diagnostic Test Radiology reviewed: Image reviewed, Reports reviewed - EKG Interpretation by [place] EKG shows normal: Sinus rhythm Rate: Tachycardia <VEDA SALINAS - Last Filed: 03/27/17 23:26> - Re-evaluation Re-evalutation: 03/27/17 patient presents with severe respiratory distress. Patient had BiPAP initiated as well as DuoNeb, Solu-Medrol, and magnesium. Patient also tachycardic but improving with fluids. No evidence for pneumonia on chest x-ray. Patient was discussed with the hospitalist service and will be admitted to the [facility]. Patient and family understand and agree with this plan. Patient is improved and resting on BiPAP at the time of admission. (VEDA SALINAS) - Vital Signs Vital signs: Temp Pulse Resp BP Pulse Ox 98.3 F 144 H 32 H 161/89 H 93 03/27/17 19:50 03/27/17 19:50 03/27/17 20:00 03/27/17 19:50 03/27/17 20:00 - Laboratory Laboratory results interpreted by me: 03/27/17 03/27/17 03/27/17 20:00 20:00 20:57 WBC 12.7 H MCV 77 L MCH 26.3 L RDW 15.0 H Absolute Neutrophils 9.4 H Sodium 145.1 H Glucose 118 H Lactic Acid 2.3 H Critical Care Note - Critical Care Note Total time excluding time spent on procedures (mins): 60 - Evaluation and management of respiratory distress, hypoxemia, multiple re-evaluations, management of COPD exacerbation, initiation of BiPAP, multiple re-evaluations, coordination of admission, counseling of patient and family <VEDA SALINAS - Last Filed: 03/27/17 23:26> Discharge <AZALIA BELTRÁN - Last Filed: 03/27/17 22:34> - Discharge Admitting Provider: [facility] Unit Admitted: [facility] <VEDA SALINAS - Last Filed: 03/27/17 23:26> - Discharge Clinical Impression: Acute exacerbation of chronic obstructive pulmonary disease (COPD), Respiratory distress Condition: Stable Disposition: ADMITTED INPATIENT Scribe Attestation: 03/27/17 23:26 I personally performed the services described in the documentation, reviewed and edited the documentation which was dictated to the scribe in my presence, and it accurately records my words and actions. (VEDA SALINAS) Scribe Documentation - Scribe Written by Kimberly:: Kimberly Haile, 03/27/2017 2139 acting as scribe for :: Javier <AZALIA BELTRÁN - Last Filed: 03/27/17 22:34>
[2017-03-27] MEDS ORDERED: METHYLPREDNISOLONE INJ 125 MG/2 ML SDV ONE (20:02)
[2017-03-27] MEDS ORDERED: MAGNESIUM SULFATE/D5W 2 GM/200 ML RTUPB IV ONE (20:02)
[2017-03-27] MEDS: MAGNESIUM SULFATE/D5W 1 GM/100 ML RTUPB IV SCH ×2 (20:09→20:55)
[2017-03-27] MEDS ORDERED: TERBUTALINE SULFATE INJ/PF 1 MG/1 ML SDV ONE (20:09)
[2017-03-27] MEDS ORDERED: NORMAL SALINE 1000 ML 1,000 ML IV ONE (20:17)
[2017-03-27 20:34] LABS: ABSOLUTE BASOPHILS # (AUTO) 0.1 10^3/uL (0.0-0.2); ABSOLUTE EOSINOPHILS # (AUTO) 0.1 10^3/uL (0.0-0.6); ABSOLUTE LYMPHOCYTES (AUTO) 2.1 10^3/uL (0.5-4.7); ABSOLUTE NEUT (AUTO) 9.4 10^3/uL (1.7-8.2); BASOPHILS % (AUTO) 0.7 % (0-2); EOSINOPHILS % (AUTO) 0.9 % (0-6); HEMOGLOBIN 13.6 g/dL (12.0-15.5); HGB HCT DIFFERENCE 0.8; LYMPHOCYTES % (AUTO) 16.2 % (13-45); MEAN CORPUSCULAR HEMOGLOBIN 26.3 pg (27.0-33.4); MEAN CORPUSCULAR VOLUME 77 fl (80-97); MONOCYTES % (AUTO) 8.2 % (3-13); RED BLOOD COUNT 5.16 10^6/uL (3.72-5.28); WHITE BLOOD COUNT 12.7 10^3/uL (4.0-10.5)
--- NOTE | 2017-03-27 20:38 | RADIOLOGY REPORT (SQ) ---
EXAM DESCRIPTION: CHEST SINGLE VIEW COMPLETED DATE/TIME: 03/27/2017 8:27 pm REASON FOR STUDY: SOB COMPARISON: 02/02/2017. EXAM PARAMETERS: NUMBER OF VIEWS: One view. TECHNIQUE: Single frontal radiographic view of the chest acquired. RADIATION DOSE: NA LIMITATIONS: None. FINDINGS: LUNGS AND PLEURA: No opacities, masses or pneumothorax. No pleural effusion. MEDIASTINUM AND HILAR STRUCTURES: No masses. Contour normal. HEART AND VASCULAR STRUCTURES: Heart normal in size. Normal vasculature. BONES: No acute findings. HARDWARE: None in the chest. OTHER: No other significant finding. IMPRESSION: NO ACUTE RADIOGRAPHIC FINDING IN THE CHEST. TECHNICAL DOCUMENTATION: JOB ID: [id number]
[2017-03-27 20:41] LABS: PROTHROMBIN TIME 12.2 SEC (11.4-15.4)
[2017-03-27 20:47] LABS: ALANINE AMINOTRANSFERASE 27 U/L (9-52); ALBUMIN 4.5 g/dL (3.5-5.0); ALKALINE PHOSPHATASE 117 U/L (38-126); ANION GAP 12 (5-19); ASPARTATE AMINO TRANSFERASE 31 U/L (14-36); BILIRUBIN,DIRECT 0.4 mg/dL (0.0-0.4); BILIRUBIN,TOTAL 0.6 mg/dL (0.2-1.3); BLOOD UREA NITROGEN 12 mg/dL (7-20); CALCIUM 10.2 mg/dL (8.4-10.2); CARBON DIOXIDE 27 mmol/L (22-30); CHLORIDE 106 mmol/L (98-107); CREATININE RESULT 0.61 mg/dL (0.52-1.25); GLUCOSE 118 mg/dL (75-110); SODIUM 145.1 mmol/L (137-145); TOTAL PROTEIN 7.9 g/dL (6.3-8.2)
[2017-03-27] MEDS ORDERED: DILTIAZEM HCL INJ 25 MG/5 ML VIAL ONE (21:07)
[2017-03-27] MEDS ORDERED: GUAIFENESIN SYRP 200 MG/10 ML UDC PO PRN (21:16)
[2017-03-27] MEDS ORDERED: IPRATROPIUM/ALBUTEROL 0.5-2.5 MG/3 ML AMPUL NEB PRN (21:16)
[2017-03-27] MEDS ORDERED: ACETAMINOPHEN 325 MG TABLET PO PRN (21:16)
[2017-03-27 21:17] LABS: VENOUS BLOOD BASE EXCESS 1.6 mmol/L; VENOUS BLOOD HCO3 26.8 mmol/L (20-32); VENOUS BLOOD PCO2 44.3 mmHg (35-63); VENOUS BLOOD PH 7.4 (7.30-7.42)
[2017-03-27] MEDS ORDERED: HYDRALAZINE HCL INJ/PF 20 MG/1 ML SDV IV PRN (21:22)
[2017-03-27] MEDS ORDERED: LEVOFLOXACIN 750 MG/D5W RTU 750 MG/150 ML RTUPB IV ONE (22:00)
[2017-03-27] MEDS ORDERED: LEVOFLOXACIN 750 MG/D5W RTU 150 ML IV SCH (22:00)
[2017-03-27] MEDS ORDERED: CHLORPHENIRAMINE MALEATE 4 MG TABLET PO ONE (22:00)
[2017-03-27] MEDS: GUAIFENESIN 600 MG TABLET.SA PO SCH (22:52)
[2017-03-27] MEDS: FLUTICASONE NASAL SPRAY 50 MCG/SPRY 120 SPRAY/16 GM NASL SCH (22:53)
[2017-03-27] MEDS: HEPARIN SOD (PORCINE) 5,000 UNIT/ML 1 ML SYRINGE SUBCUT SCH (22:55)
[2017-03-28] MEDS: DILTIAZEM HCL 60 MG TABLET PO SCH ×5 (01:05→23:56)
[2017-03-28] MEDS: IPRATROPIUM BROMIDE 0.02% NEB 0.5 MG/2.5 ML AMPUL NEB SCH ×4 (02:07→20:16)
[2017-03-28] MEDS: LEVALBUTEROL HCL NEB 1.25 MG/3 ML AMPUL NEB SCH ×4 (02:08→20:16)
[2017-03-28 02:29] LABS: APPEARANCE,URINE CLEAR; BILIRUBIN,URINE NEGATIVE (NEGATIVE); GLUCOSE, URINE >=500 mg/dL (NEGATIVE); KETONES,URINE TRACE mg/dL (NEGATIVE); LEUKOCYTE ESTERASE,URINE NEGATIVE (NEGATIVE); NITRITE,URINE NEGATIVE (NEGATIVE); PROTEIN,URINE NEGATIVE (NEGATIVE); URINE SPECIFIC GRAVITY 1.011; UROBILINOGEN,URINE NEGATIVE mg/dL (<2.0)
--- NOTE | 2017-03-28 03:07 | PDOC H&P ---
History of Present Illness Admission Date/PCP: 03/27/17 21:16 MILENA RAE MD Patient complains of: Shortness of breath History of Present Illness: ADDIE STEWART is a 56 year old female with a past medical history of aspirin exacerbated respiratory disease, nasal polyps, GERD and COPD who would been her usual state of health until approximately 24 hours prior to presentation with complaints of nasal congestion and postnasal drip resulting in nonproductive cough and shortness of breath. Patient denies lack of GERD control, chest pain , fever chills nausea vomiting. In the emergency room she is found to be tachypneic, tachycardic, rhonchi and hypoxic with oxygen saturations in the mid 80s requiring BiPAP at 50%. She receives empiric antibiotics, albuterol and ipratropium then referred to the hospitalist for admission. Past Medical History Cardiac Medical History: Reports: Hypertension Pulmonary Medical History: Reports: Asthma - Aspirin associated asthma, Chronic Obstructive Pulmonary Disease (COPD), Pneumonia Psychiatric Medical History: Denies: Depression Social History Information Source: Patient Lives with: Family Smoking Status: Never Smoker Frequency of Alcohol Use: None Hx Recreational Drug Use: No Drugs: None Hx Prescription Drug Abuse: No - Advance Directive Resuscitation Status: Full Code Family History Family History: COPD, Hypertension Parental Family History Reviewed: Yes Children Family History Reviewed: Yes Sibling(s) Family History Reviewed.: Yes Medication/Allergy Home Medications: Albuterol Sulfate [Albuterol Sulfate 2.5mg/3 mL] 1 vial IH [id number] PRN 01/20/17 Amlodipine Besylate [Norvasc 5 mg Tablet] 5 mg PO DAILY #30 tablet 01/23/17 Azithromycin [Zithromax 250 mg Tablet] 500 mg PO DAILY #4 tablet 01/23/17 Budesonide/Formoterol Fumarate [Symbicort HFA 160-4.5 mcg Inhaler 6 gm] 2 puff IH Q12 #1 inhaler 01/23/17 Docusate Sodium [Colace 100 mg Capsule] 100 mg PO BID #60 capsule 01/23/17 Lansoprazole [Prevacid 30 mg Odt Tablet] 30 mg PO BID@0600,1700 #60 tab.rap 01/23/17 Prednisone [Deltasone 20 mg Tablet] 40 mg PO DAILY #5 tablet 01/23/17 Prednisone [Deltasone 10 mg Tablet] 10 mg PO ASDIR PRN #21 tablet 02/02/17 Allergies/Adverse Reactions: benzonatate [From Wes Blanco] Allergy (Verified 03/27/17 19:50) NSAIDS (Non-Steroidal Anti-Inflamma Allergy (Verified 03/27/17 19:50) Review of Systems Constitutional: ABSENT: chills, fever(s), headache(s), weight gain, weight loss Eyes: ABSENT: visual disturbances Ears: ABSENT: hearing changes Cardiovascular: ABSENT: chest pain, dyspnea on exertion, edema, orthropnea, palpitations Respiratory: ABSENT: cough, hemoptysis Gastrointestinal: ABSENT: abdominal pain, constipation, diarrhea, hematemesis, hematochezia, nausea, vomiting Genitourinary: ABSENT: dysuria, hematuria Musculoskeletal: ABSENT: joint swelling Integumentary: ABSENT: rash, wounds Neurological: ABSENT: abnormal gait, abnormal speech, confusion, dizziness, focal weakness, syncope Psychiatric: ABSENT: anxiety, depression, homidical ideation, suicidal ideation Endocrine: ABSENT: cold intolerance, heat intolerance, polydipsia, polyuria Hematologic/Lymphatic: ABSENT: easy bleeding, easy bruising Physical Exam Vital Signs: Temp Pulse Resp BP Pulse Ox 97.6 F 130 H 22 H 141/78 H 97 03/28/17 01:35 03/28/17 02:10 03/28/17 02:10 03/28/17 01:35 03/28/17 01:35 Intake & Output 03/26/17 03/27/17 03/28/17 11:59 11:59 11:59 Weight 101.5 kg General appearance: PRESENT: cooperative, obese, severe distress Head exam: PRESENT: atraumatic, normocephalic Eye exam: PRESENT: conjunctiva pink, EOMI, PERRLA. ABSENT: scleral icterus Ear exam: PRESENT: normal external ear exam Mouth exam: PRESENT: moist, tongue midline Neck exam: ABSENT: carotid bruit, JVD, lymphadenopathy, thyromegaly Respiratory exam: PRESENT: accessory muscle use, crackles, decreased breath sounds, rales, retraction, rhonchi, symmetrical, tachypnea. ABSENT: wheezes Cardiovascular exam: PRESENT: gallop, RRR. ABSENT: diastolic murmur, rubs, systolic murmur Pulses: PRESENT: normal dorsalis pedis pul GI/Abdominal exam: PRESENT: normal bowel sounds, soft. ABSENT: distended, guarding, mass, organolmegaly, rebound, tenderness Rectal exam: PRESENT: deferred Extremities exam: PRESENT: full ROM. ABSENT: calf tenderness, clubbing, pedal edema Neurological exam: PRESENT: alert, awake, oriented to person, oriented to place , oriented to time, oriented to situation, CN II-XII grossly intact. ABSENT: motor sensory deficit Psychiatric exam: PRESENT: appropriate affect, normal mood. ABSENT: homicidal ideation, suicidal ideation Skin exam: PRESENT: dry, intact, warm. ABSENT: cyanosis, rash Results Laboratory Results: 03/28/17 03/28/17 00:47 02:10 Lactic Acid 3.7 H Urine Color STRAW Urine Appearance CLEAR Urine pH 5.0 Ur Specific [place] 1.011 Urine Protein NEGATIVE Urine Glucose (UA) >=500 H Urine Ketones TRACE H Urine Blood SMALL H Urine Nitrite NEGATIVE Ur Leukocyte Esterase NEGATIVE Urine WBC (Auto) 0 Urine RBC (Auto) 0 Impressions: Chest X-Ray 03/27/17 00:00 IMPRESSION: NO ACUTE RADIOGRAPHIC FINDING IN THE CHEST. Assessment & Plan - Diagnosis (1) Pneumonia Qualifiers: Pneumonia type: due to unspecified organism Laterality: right Lung location: middle lobe of lung Qualified Code(s): J18.1 - Lobar pneumonia, unspecified organism Is this a current diagnosis for this admission?: Yes Plan: Bilateral rhonchi with hypoxia and cough without radiological evidence consider chest CT. Admitted to a monitored bed with a pneumonia care set follow-up CBC, chemistry and blood culture. (2) Acute exacerbation of chronic obstructive pulmonary disease (COPD) Is this a current diagnosis for this admission?: Yes Plan: Admission to a monitored bed with a pneumonia care set, Flonase, chlorpheniramine, empiric antibiotics and prednisone. (3) Aspirin-induced asthma Is this a current diagnosis for this admission?: Yes Plan: Avoid aspirin. (4) GERD (gastroesophageal reflux disease) Is this a current diagnosis for this admission?: Yes Plan: Prevacid twice daily. (5) Tachycardia Is this a current diagnosis for this admission?: Yes Plan: Hold albuterol initiate Xopenex, diltiazem 60 mg every 8 hours. Consider 2D echo as suboptimal quality from January 2017. - Time Time Spent: 50 to 70 Minutes - Inpatient Certification Medical Necessity: Need Close Monitoring Due to Risk of Patient Decompensation
[2017-03-28 05:17] LABS: HEMATOCRIT 37.7 % (36.0-47.0); HEMOGLOBIN 12.6 g/dL (12.0-15.5); HGB HCT DIFFERENCE 0.1; MEAN CORPUSCULAR HGB CONC 33.5 g/dL (32.0-36.0); MEAN CORPUSCULAR VOLUME 78 fl (80-97); RED BLOOD COUNT 4.85 10^6/uL (3.72-5.28); RED CELL DISTRIBUTION WIDTH 14.5 % (11.5-14.0); WHITE BLOOD COUNT 16.7 10^3/uL (4.0-10.5)
[2017-03-28] MEDS: HEPARIN SOD (PORCINE) 5,000 UNIT/ML 1 ML SYRINGE SUBCUT SCH ×3 (05:28→21:16)
[2017-03-28 05:29] LABS: ANION GAP 11 (5-19); BLOOD UREA NITROGEN 13 mg/dL (7-20); CALCIUM 10.2 mg/dL (8.4-10.2); CARBON DIOXIDE 26 mmol/L (22-30); CHLORIDE 106 mmol/L (98-107); CREATININE RESULT 0.56 mg/dL (0.52-1.25); GLUCOSE 232 mg/dL (75-110); POTASSIUM 4.6 mmol/L (3.6-5.0); SODIUM 142.8 mmol/L (137-145)
[2017-03-28 06:37] LABS: BASOPHILS % (MANUAL) 0 % (0-2); EOSINOPHILS % (MANUAL) 0 % (0-6); LYMPHOCYTES % (MANUAL) 2 % (13-45); TOTAL CELLS COUNTED 100
[2017-03-28 06:38] LABS: ANISOCYTOSIS SLIGHT; MICROCYTOSIS SLIGHT; POIKILOCYTOSIS SLIGHT; TARGET CELLS SLIGHT
[2017-03-28] MEDS ORDERED: GUAIFENESIN/CODEINE PHOS 100-10 MG/ 5 ML UDC PO PRN (09:35)
--- NOTE | 2017-03-28 12:01 | EKG REPORT ---
SEVERITY:- ABNORMAL ECG - SINUS TACHYCARDIA CHARLES, CONSIDER BIATRIAL ABNORMALITIES PROBABLE LEFT VENTRICULAR HYPERTROPHY : Confirmed by: Tianna Xavier 28-Mar-2017 12:00:44
[2017-03-28] MEDS: GUAIFENESIN 600 MG TABLET.SA PO SCH ×2 (12:24→21:13)
[2017-03-28] MEDS: METHYLPREDNISOLONE INJ 125 MG/2 ML SDV IV SCH ×3 (12:25→23:56)
[2017-03-28] MEDS: FLUTICASONE NASAL SPRAY 50 MCG/SPRY 120 SPRAY/16 GM NASL SCH ×2 (12:25→21:13)
[2017-03-28] MEDS: DOCUSATE SODIUM 100 MG CAPSULE PO SCH ×2 (12:26→17:11)
--- NOTE | 2017-03-28 13:48 | PDOC PROGRESS REPORT ---
Subjective Progress Note for:: 03/28/17 Subjective:: Patient seen on morning rounds. She is resting comfortably in bed. She has a harsh nonproductive cough. She continues to have diffuse expiratory wheezing bilaterally. She denies chest pain, dyspnea or palpitations. She denies nausea , vomiting or abdominal pain. She denies any significant arthralgias or myalgias. Remaining review of systems is negative. Physical Exam Vital Signs: Temp Pulse Resp BP Pulse Ox 97.4 F 103 H 24 H 135/68 H 96 03/28/17 11:41 03/28/17 11:41 03/28/17 11:41 03/28/17 11:41 03/28/17 11:41 Intake & Output 03/27/17 03/28/17 03/29/17 06:59 06:59 06:59 Intake Total 35 Balance 35 Weight 101.5 kg General appearance: PRESENT: no acute distress, obese, well-developed, well- nourished Head exam: PRESENT: atraumatic, normocephalic Eye exam: PRESENT: conjunctiva pink, EOMI, PERRLA. ABSENT: scleral icterus Ear exam: PRESENT: normal external ear exam Mouth exam: PRESENT: moist, tongue midline Neck exam: ABSENT: carotid bruit, JVD, lymphadenopathy, thyromegaly Respiratory exam: PRESENT: symmetrical, unlabored, wheezes - Bilateral expiratory Cardiovascular exam: PRESENT: RRR. ABSENT: diastolic murmur, rubs, systolic murmur Pulses: PRESENT: normal dorsalis pedis pul Vascular exam: PRESENT: normal capillary refill GI/Abdominal exam: PRESENT: normal bowel sounds, soft. ABSENT: distended, guarding, mass, organolmegaly, rebound, tenderness Rectal exam: PRESENT: deferred Extremities exam: PRESENT: full ROM. ABSENT: calf tenderness, clubbing, pedal edema Neurological exam: PRESENT: alert, awake, oriented to person, oriented to place , oriented to time, oriented to situation, CN II-XII grossly intact. ABSENT: motor sensory deficit Psychiatric exam: PRESENT: appropriate affect, normal mood. ABSENT: homicidal ideation, suicidal ideation Skin exam: PRESENT: dry, intact, warm. ABSENT: cyanosis, rash Results Laboratory Results: 03/28/17 04:59 03/28/17 04:59 03/28/17 03/28/17 03/28/17 00:47 02:10 04:59 WBC 16.7 H RBC 4.85 Hgb 12.6 Hct 37.7 MCV 78 L MCH 26.0 L MCHC 33.5 RDW 14.5 H Plt Count 347 Seg Neutrophils % Not Reportable Lymphocytes % Not Reportable Monocytes % Not Reportable Eosinophils % Not Reportable Basophils % Not Reportable Absolute Neutrophils Not Reportable Absolute Lymphocytes Not Reportable Absolute Monocytes Not Reportable Absolute Eosinophils Not Reportable Absolute Basophils Not Reportable Sodium Potassium Chloride Carbon Dioxide Anion Gap BUN Creatinine Est GFR ( Amer) Est GFR (Non-Af Amer) Glucose Lactic Acid 3.7 H Calcium Urine Color STRAW Urine Appearance CLEAR Urine pH 5.0 Ur Specific [place] 1.011 Urine Protein NEGATIVE Urine Glucose (UA) >=500 H Urine Ketones TRACE H Urine Blood SMALL H Urine Nitrite NEGATIVE Ur Leukocyte Esterase NEGATIVE Urine WBC (Auto) 0 Urine RBC (Auto) 0 03/28/17 04:59 WBC RBC Hgb Hct MCV MCH MCHC RDW Plt Count Seg Neutrophils % Lymphocytes % Monocytes % Eosinophils % Basophils % Absolute Neutrophils Absolute Lymphocytes Absolute Monocytes Absolute Eosinophils Absolute Basophils Sodium 142.8 Potassium 4.6 Chloride 106 Carbon Dioxide 26 Anion Gap 11 BUN 13 Creatinine 0.56 Est GFR ( Amer) > 60 Est GFR (Non-Af Amer) > 60 Glucose 232 H Lactic Acid Calcium 10.2 Urine Color Urine Appearance Urine pH Ur Specific [place] Urine Protein Urine Glucose (UA) Urine Ketones Urine Blood Urine Nitrite Ur Leukocyte Esterase Urine WBC (Auto) Urine RBC (Auto) Impressions: Chest X-Ray 03/27/17 00:00 IMPRESSION: NO ACUTE RADIOGRAPHIC FINDING IN THE CHEST. Assessment & Plan - Diagnosis (1) Acute respiratory failure with hypoxemia Is this a current diagnosis for this admission?: Yes Plan: Patient has history of asthma most likely exacerbated by an acute respiratory infection. We will continue IV steroids, broad-spectrum antibiotics and nebulizer treatments per (2) Asthma Qualifiers: Asthma severity: moderate persistent Asthma complication type: with acute exacerbation Qualified Code(s): J45.41 - Moderate persistent asthma with ( acute) exacerbation Is this a current diagnosis for this admission?: Yes Plan: Continue inhalers, IV steroids and nebulizer treatments. (3) COPD with exacerbation Is this a current diagnosis for this admission?: Yes Plan: As above (4) GERD (gastroesophageal reflux disease) Qualifiers: Esophagitis presence: without esophagitis Qualified Code(s): K21.9 - Gastro -esophageal reflux disease without esophagitis Is this a current diagnosis for this admission?: Yes (5) Hypertension Qualifiers: Hypertension type: essential hypertension Qualified Code(s): I10 - Essential (primary) hypertension Is this a current diagnosis for this admission?: Yes Plan: Continue current home medications per (6) Rhinorrhea Is this a current diagnosis for this admission?: Yes Plan: Flonase and Singulair - Time Time Spent with patient: 25-34 minutes Critical Time spent with patient: 15-24 minutes Medications reviewed and adjusted accordingly: Yes Anticipated discharge: Home
[2017-03-28] MEDS: LANSOPRAZOLE 30 MG TAB.RAP.DR PO SCH (17:05)
[2017-03-28] MEDS: MONTELUKAST SODIUM 10 MG TABLET PO SCH (21:13)
[2017-03-28] MEDS: BUDESONIDE/FORMOTEROL 160-4.5 MCG 60 PUFF/6 GM MDI IH SCH (21:13)
[2017-03-28] MEDS: LEVOFLOXACIN 750 MG/D5W RTU 750 MG/150 ML RTUPB IV SCH (21:13)
[2017-03-29] MEDS: LEVALBUTEROL HCL NEB 1.25 MG/3 ML AMPUL NEB SCH ×4 (02:15→20:42)
[2017-03-29] MEDS: IPRATROPIUM BROMIDE 0.02% NEB 0.5 MG/2.5 ML AMPUL NEB SCH ×4 (02:16→20:42)
[2017-03-29] MEDS: DILTIAZEM HCL 60 MG TABLET PO SCH ×4 (05:33→23:06)
[2017-03-29] MEDS: METHYLPREDNISOLONE INJ 125 MG/2 ML SDV IV SCH ×4 (05:33→23:06)
[2017-03-29] MEDS: LANSOPRAZOLE 30 MG TAB.RAP.DR PO SCH ×2 (05:34→17:44)
[2017-03-29] MEDS: HEPARIN SOD (PORCINE) 5,000 UNIT/ML 1 ML SYRINGE SUBCUT SCH ×3 (05:38→21:22)
[2017-03-29] MEDS: GUAIFENESIN 600 MG TABLET.SA PO SCH ×2 (09:43→21:20)
[2017-03-29] MEDS: AMLODIPINE BESYLATE 5 MG TABLET PO SCH (09:43)
[2017-03-29] MEDS: FLUTICASONE NASAL SPRAY 50 MCG/SPRY 120 SPRAY/16 GM NASL SCH ×2 (09:43→21:19)
[2017-03-29] MEDS: BUDESONIDE/FORMOTEROL 160-4.5 MCG 60 PUFF/6 GM MDI IH SCH ×2 (09:44→21:20)
[2017-03-29] MEDS: DOCUSATE SODIUM 100 MG CAPSULE PO SCH ×2 (09:44→12:36)
[2017-03-29] MEDS: CETIRIZINE 10 MG TABLET PO SCH (12:35)
--- NOTE | 2017-03-29 13:56 | PDOC PROGRESS REPORT ---
Subjective Progress Note for:: 03/29/17 Subjective:: Patient seen on morning rounds. She is resting comfortably in bed. She has a harsh nonproductive cough. She continues to have expiratory wheezing. She denies chest pain, dyspnea or palpitations. She denies nausea, vomiting or abdominal pain. She denies any significant arthralgias or myalgias. Remaining review of systems is negative. Physical Exam Vital Signs: Temp Pulse Resp BP Pulse Ox 97.6 F 99 20 134/65 H 97 03/29/17 11:24 03/29/17 11:24 03/29/17 11:24 03/29/17 11:24 03/29/17 11:24 Intake & Output 03/28/17 03/29/17 03/30/17 06:59 06:59 06:59 Intake Total 35 1691 437 Output Total 2500 300 Balance 35 -809 137 Weight 101.5 kg 101.2 kg General appearance: PRESENT: no acute distress, well-developed, well-nourished Head exam: PRESENT: atraumatic, normocephalic Eye exam: PRESENT: conjunctiva pink, EOMI, PERRLA. ABSENT: scleral icterus Ear exam: PRESENT: normal external ear exam Mouth exam: PRESENT: moist, tongue midline Neck exam: ABSENT: carotid bruit, JVD, lymphadenopathy, thyromegaly Respiratory exam: PRESENT: symmetrical, unlabored, wheezes. ABSENT: rales, rhonchi Cardiovascular exam: PRESENT: RRR. ABSENT: diastolic murmur, rubs, systolic murmur Pulses: PRESENT: normal dorsalis pedis pul Vascular exam: PRESENT: normal capillary refill GI/Abdominal exam: PRESENT: normal bowel sounds, soft. ABSENT: distended, guarding, mass, organolmegaly, rebound, tenderness Rectal exam: PRESENT: deferred Extremities exam: PRESENT: full ROM. ABSENT: calf tenderness, clubbing, pedal edema Musculoskeletal exam: PRESENT: ambulatory, full ROM Neurological exam: PRESENT: alert, awake, oriented to person, oriented to place , oriented to time, oriented to situation, CN II-XII grossly intact. ABSENT: motor sensory deficit Psychiatric exam: PRESENT: appropriate affect, normal mood. ABSENT: homicidal ideation, suicidal ideation Skin exam: PRESENT: dry, intact, warm. ABSENT: cyanosis, rash Results Laboratory Results: 03/28/17 04:59 03/28/17 04:59 Impressions: Chest X-Ray 03/27/17 00:00 IMPRESSION: NO ACUTE RADIOGRAPHIC FINDING IN THE CHEST. Assessment & Plan - Diagnosis (1) Acute respiratory failure with hypoxemia Is this a current diagnosis for this admission?: Yes Plan: Patient has history of asthma most likely exacerbated by an acute respiratory infection. We will continue IV steroids, broad-spectrum antibiotics and nebulizer treatments per (2) Asthma Qualifiers: Asthma severity: moderate persistent Asthma complication type: with acute exacerbation Qualified Code(s): J45.41 - Moderate persistent asthma with ( acute) exacerbation Is this a current diagnosis for this admission?: Yes Plan: Continue inhalers, IV steroids and nebulizer treatments. (3) COPD with exacerbation Is this a current diagnosis for this admission?: Yes Plan: As above (4) GERD (gastroesophageal reflux disease) Qualifiers: Esophagitis presence: without esophagitis Qualified Code(s): K21.9 - Gastro -esophageal reflux disease without esophagitis Is this a current diagnosis for this admission?: Yes (5) Hypertension Qualifiers: Hypertension type: essential hypertension Qualified Code(s): I10 - Essential (primary) hypertension Is this a current diagnosis for this admission?: Yes Plan: Continue current home medications per (6) Rhinorrhea Is this a current diagnosis for this admission?: Yes Plan: Flonase and Singulair - Time Time Spent with patient: 25-34 minutes Critical Time spent with patient: 15-24 minutes Medications reviewed and adjusted accordingly: Yes
[2017-03-29] MEDS: LEVOFLOXACIN 750 MG/D5W RTU 750 MG/150 ML RTUPB IV SCH (21:21)
[2017-03-29] MEDS: MONTELUKAST SODIUM 10 MG TABLET PO SCH (21:22)
[2017-03-30] MEDS: IPRATROPIUM BROMIDE 0.02% NEB 0.5 MG/2.5 ML AMPUL NEB SCH ×4 (02:20→21:05)
[2017-03-30] MEDS: LEVALBUTEROL HCL NEB 1.25 MG/3 ML AMPUL NEB SCH ×4 (02:20→21:05)
[2017-03-30] MEDS: DILTIAZEM HCL 60 MG TABLET PO SCH ×4 (05:18→23:48)
[2017-03-30] MEDS: LANSOPRAZOLE 30 MG TAB.RAP.DR PO SCH ×2 (05:18→16:58)
[2017-03-30] MEDS: METHYLPREDNISOLONE INJ 125 MG/2 ML SDV IV SCH (05:18)
[2017-03-30] MEDS: HEPARIN SOD (PORCINE) 5,000 UNIT/ML 1 ML SYRINGE SUBCUT SCH ×3 (05:19→21:16)
[2017-03-30] MEDS: CETIRIZINE 10 MG TABLET PO SCH (09:27)
[2017-03-30] MEDS: AMLODIPINE BESYLATE 5 MG TABLET PO SCH (09:28)
[2017-03-30] MEDS: GUAIFENESIN 600 MG TABLET.SA PO SCH ×2 (09:29→21:13)
[2017-03-30] MEDS: FLUTICASONE NASAL SPRAY 50 MCG/SPRY 120 SPRAY/16 GM NASL SCH ×2 (09:32→21:15)
[2017-03-30] MEDS: BUDESONIDE/FORMOTEROL 160-4.5 MCG 60 PUFF/6 GM MDI IH SCH ×2 (09:33→21:16)
[2017-03-30] MEDS: DOCUSATE SODIUM 100 MG CAPSULE PO SCH ×2 (09:39→17:34)
--- NOTE | 2017-03-30 13:44 | PDOC PROGRESS REPORT ---
Subjective Progress Note for:: 03/30/17 Subjective:: Patient seen on morning rounds. She is resting comfortably in bed. She has a harsh nonproductive cough. She continues to have expiratory wheezing but improving. She denies chest pain, dyspnea or palpitations. She denies nausea , vomiting or abdominal pain. She denies any significant arthralgias or myalgias. Remaining review of systems is negative. Physical Exam Vital Signs: Temp Pulse Resp BP Pulse Ox 97.4 F 87 20 136/60 H 97 03/30/17 11:34 03/30/17 11:34 03/30/17 11:34 03/30/17 11:34 03/30/17 11:34 Intake & Output 03/29/17 03/30/17 03/31/17 06:59 06:59 06:59 Intake Total 1691 1248 959 Output Total 2500 2250 900 Balance -809 -1002 59 Weight 101.2 kg 101 kg General appearance: PRESENT: no acute distress, obese, well-developed, well- nourished Head exam: PRESENT: atraumatic, normocephalic Eye exam: PRESENT: conjunctiva pink, EOMI, PERRLA. ABSENT: scleral icterus Ear exam: PRESENT: normal external ear exam Mouth exam: PRESENT: moist, tongue midline Neck exam: ABSENT: carotid bruit, JVD, lymphadenopathy, thyromegaly Respiratory exam: PRESENT: symmetrical, unlabored, wheezes. ABSENT: rales, rhonchi Cardiovascular exam: PRESENT: RRR. ABSENT: diastolic murmur, rubs, systolic murmur Pulses: PRESENT: normal dorsalis pedis pul Vascular exam: PRESENT: normal capillary refill GI/Abdominal exam: PRESENT: normal bowel sounds, soft. ABSENT: distended, guarding, mass, organolmegaly, rebound, tenderness Rectal exam: PRESENT: deferred Extremities exam: PRESENT: full ROM. ABSENT: calf tenderness, clubbing, pedal edema Musculoskeletal exam: PRESENT: ambulatory, full ROM, normal inspection Neurological exam: PRESENT: alert, awake, oriented to person, oriented to place , oriented to time, oriented to situation, CN II-XII grossly intact. ABSENT: motor sensory deficit Psychiatric exam: PRESENT: appropriate affect, normal mood. ABSENT: homicidal ideation, suicidal ideation Skin exam: PRESENT: dry, intact, warm. ABSENT: cyanosis, rash Results Laboratory Results: 03/28/17 04:59 03/28/17 04:59 03/28/17 02:10 Clean Catch Midstream Urine Culture - Final Urogenital Desiree Impressions: Chest X-Ray 03/27/17 00:00 IMPRESSION: NO ACUTE RADIOGRAPHIC FINDING IN THE CHEST. Assessment & Plan - Diagnosis (1) Acute respiratory failure with hypoxemia Is this a current diagnosis for this admission?: Yes Plan: Patient has history of asthma most likely exacerbated by an acute respiratory infection. We will continue IV steroids, broad-spectrum antibiotics and nebulizer treatments per (2) Asthma Qualifiers: Asthma severity: moderate persistent Asthma complication type: with acute exacerbation Qualified Code(s): J45.41 - Moderate persistent asthma with ( acute) exacerbation Is this a current diagnosis for this admission?: Yes Plan: Continue inhalers, IV steroids and nebulizer treatments. (3) COPD with exacerbation Is this a current diagnosis for this admission?: Yes Plan: As above (4) GERD (gastroesophageal reflux disease) Qualifiers: Esophagitis presence: without esophagitis Qualified Code(s): K21.9 - Gastro -esophageal reflux disease without esophagitis Is this a current diagnosis for this admission?: Yes Plan: PPI continue (5) Hypertension Qualifiers: Hypertension type: essential hypertension Qualified Code(s): I10 - Essential (primary) hypertension Is this a current diagnosis for this admission?: Yes Plan: Continue current home medications per (6) Rhinorrhea Is this a current diagnosis for this admission?: Yes Plan: Flonase and Singulair - Time Time Spent with patient: 25-34 minutes Critical Time spent with patient: 15-24 minutes Medications reviewed and adjusted accordingly: Yes
[2017-03-30] MEDS: METHYLPREDNISOLONE INJ 40 MG/1 ML SDV IV SCH ×2 (14:11→21:13)
[2017-03-30] MEDS: LEVOFLOXACIN 750 MG TABLET PO SCH (21:13)
[2017-03-30] MEDS: MONTELUKAST SODIUM 10 MG TABLET PO SCH (21:15)
[2017-03-31] MEDS: IPRATROPIUM BROMIDE 0.02% NEB 0.5 MG/2.5 ML AMPUL NEB SCH ×4 (02:17→20:23)
[2017-03-31] MEDS: LEVALBUTEROL HCL NEB 1.25 MG/3 ML AMPUL NEB SCH ×4 (02:17→20:24)
[2017-03-31] MEDS: LANSOPRAZOLE 30 MG TAB.RAP.DR PO SCH ×2 (05:24→16:20)
[2017-03-31] MEDS: METHYLPREDNISOLONE INJ 40 MG/1 ML SDV IV SCH ×3 (05:25→21:14)
[2017-03-31] MEDS: DILTIAZEM HCL 60 MG TABLET PO SCH ×3 (05:25→17:37)
[2017-03-31] MEDS: HEPARIN SOD (PORCINE) 5,000 UNIT/ML 1 ML SYRINGE SUBCUT SCH ×3 (05:26→21:15)
[2017-03-31 06:09] LABS: HEMATOCRIT 35.5 % (36.0-47.0); HEMOGLOBIN 12.1 g/dL (12.0-15.5); HGB HCT DIFFERENCE 0.8; MEAN CORPUSCULAR HEMOGLOBIN 26.3 pg (27.0-33.4); MEAN CORPUSCULAR HGB CONC 34.1 g/dL (32.0-36.0); MEAN CORPUSCULAR VOLUME 77 fl (80-97); RED BLOOD COUNT 4.61 10^6/uL (3.72-5.28); RED CELL DISTRIBUTION WIDTH 14.8 % (11.5-14.0); WHITE BLOOD COUNT 13.4 10^3/uL (4.0-10.5)
[2017-03-31 06:24] LABS: ALANINE AMINOTRANSFERASE 34 U/L (9-52); ALBUMIN 3.7 g/dL (3.5-5.0); ALKALINE PHOSPHATASE 109 U/L (38-126); ANION GAP 10 (5-19); ASPARTATE AMINO TRANSFERASE 14 U/L (14-36); BILIRUBIN,DIRECT 0.3 mg/dL (0.0-0.4); BILIRUBIN,TOTAL 0.3 mg/dL (0.2-1.3); BLOOD UREA NITROGEN 20 mg/dL (7-20); CALCIUM 10.5 mg/dL (8.4-10.2); CARBON DIOXIDE 29 mmol/L (22-30); CHLORIDE 103 mmol/L (98-107); CREATININE RESULT 0.78 mg/dL (0.52-1.25); GLUCOSE 320 mg/dL (75-110); POTASSIUM 3.9 mmol/L (3.6-5.0); TOTAL PROTEIN 6.1 g/dL (6.3-8.2)
[2017-03-31 06:46] LABS: BASOPHILS % (MANUAL) 0 % (0-2); EOSINOPHILS % (MANUAL) 0 % (0-6); LYMPHOCYTES % (MANUAL) 1 % (13-45); TOTAL CELLS COUNTED 100
[2017-03-31 06:48] LABS: ANISOCYTOSIS SLIGHT; HYPOCHROMASIA SLIGHT; MICROCYTOSIS SLIGHT; TARGET CELLS SLIGHT; TOXIC GRANULATION SLIGHT
[2017-03-31] MEDS: AMLODIPINE BESYLATE 5 MG TABLET PO SCH (10:12)
[2017-03-31] MEDS: GUAIFENESIN 600 MG TABLET.SA PO SCH ×2 (10:12→21:14)
[2017-03-31] MEDS: CETIRIZINE 10 MG TABLET PO SCH (10:13)
[2017-03-31] MEDS: BUDESONIDE/FORMOTEROL 160-4.5 MCG 60 PUFF/6 GM MDI IH SCH ×2 (10:13→21:15)
[2017-03-31] MEDS: FLUTICASONE NASAL SPRAY 50 MCG/SPRY 120 SPRAY/16 GM NASL SCH ×2 (10:14→21:15)
[2017-03-31] MEDS: DOCUSATE SODIUM 100 MG CAPSULE PO SCH ×2 (10:27→17:38)
--- NOTE | 2017-03-31 12:47 | PDOC PROGRESS REPORT ---
Subjective Progress Note for:: 03/31/17 Subjective:: Patient is seen resting comfortably in bed. She continues to report harsh cough that is primarily nonproductive. She does endorse rare thick yellow sputum production. She continues to have expiratory wheezing, however states that she feels better than she did upon admission. She denies chest pain, dyspnea, palpitations. She denies nausea, vomiting, abdominal pain. She denies body aches, fevers, chills. Overall, she feels that she is improving and has no new questions or concerns. Physical Exam Vital Signs: Temp Pulse Resp BP Pulse Ox 98.4 F 104 H 22 H 152/72 H 94 03/31/17 11:14 03/31/17 11:14 03/31/17 11:14 03/31/17 11:14 03/31/17 11:14 Intake & Output 03/30/17 03/31/17 04/01/17 06:59 06:59 06:59 Intake Total 1248 3507 Output Total 2250 4300 Balance -1002 -793 Weight 101 kg 101.4 kg General appearance: PRESENT: no acute distress, obese, well-developed, well- nourished Head exam: PRESENT: atraumatic, normocephalic Eye exam: PRESENT: EOMI, PERRLA. ABSENT: scleral icterus Ear exam: PRESENT: normal external ear exam Mouth exam: PRESENT: moist, tongue midline Neck exam: PRESENT: full ROM. ABSENT: JVD, lymphadenopathy, thyromegaly Respiratory exam: PRESENT: symmetrical, unlabored, wheezes. ABSENT: accessory muscle use, retraction Cardiovascular exam: PRESENT: RRR, +S1, +S2. ABSENT: gallop, rubs, systolic murmur Pulses: PRESENT: normal radial pulses Vascular exam: PRESENT: normal capillary refill GI/Abdominal exam: PRESENT: normal bowel sounds, soft. ABSENT: tenderness Musculoskeletal exam: PRESENT: ambulatory, full ROM Neurological exam: PRESENT: alert, awake, oriented to person, oriented to place , oriented to time, oriented to situation, CN II-XII grossly intact. ABSENT: motor sensory deficit Psychiatric exam: PRESENT: appropriate affect, normal mood Skin exam: PRESENT: dry, intact, warm. ABSENT: cyanosis, rash Results Laboratory Results: 03/31/17 05:47 03/31/17 05:47 03/31/17 03/31/17 05:47 05:47 WBC 13.4 H RBC 4.61 Hgb 12.1 Hct 35.5 L MCV 77 L MCH 26.3 L MCHC 34.1 RDW 14.8 H Plt Count 320 Seg Neutrophils % Not Reportable Lymphocytes % Not Reportable Monocytes % Not Reportable Eosinophils % Not Reportable Basophils % Not Reportable Absolute Neutrophils Not Reportable Absolute Lymphocytes Not Reportable Absolute Monocytes Not Reportable Absolute Eosinophils Not Reportable Absolute Basophils Not Reportable Sodium 142.0 Potassium 3.9 Chloride 103 Carbon Dioxide 29 Anion Gap 10 BUN 20 Creatinine 0.78 Est GFR ( Amer) > 60 Est GFR (Non-Af Amer) > 60 Glucose 320 H Calcium 10.5 H Total Bilirubin 0.3 AST 14 ALT 34 Alkaline Phosphatase 109 Total Protein 6.1 L Albumin 3.7 Impressions: Chest X-Ray 03/27/17 00:00 IMPRESSION: NO ACUTE RADIOGRAPHIC FINDING IN THE CHEST. Assessment & Plan - Diagnosis (1) Acute respiratory failure with hypoxemia Is this a current diagnosis for this admission?: Yes Plan: Patient has a history of asthma and COPD, both likely exacerbated by acute respiratory infection. Continues to have significant wheezing, however oxygen has been titrated down to 2Lpm via [place]. 1- Continue IV steroids 2- Continue PO Levaquin 3- Continue scheduled and prn nebs 4- Continue mucinex (2) Asthma Qualifiers: Asthma severity: moderate persistent Asthma complication type: with acute exacerbation Qualified Code(s): J45.41 - Moderate persistent asthma with ( acute) exacerbation Is this a current diagnosis for this admission?: Yes Plan: As above (3) COPD with exacerbation Is this a current diagnosis for this admission?: Yes Plan: As above (4) GERD (gastroesophageal reflux disease) Qualifiers: Esophagitis presence: without esophagitis Qualified Code(s): K21.9 - Gastro -esophageal reflux disease without esophagitis Is this a current diagnosis for this admission?: Yes Plan: 1- Continue PPI (5) Hypertension Qualifiers: Hypertension type: essential hypertension Qualified Code(s): I10 - Essential (primary) hypertension Is this a current diagnosis for this admission?: Yes Plan: Uncontrolled; has not required prn Hydralazine 1- Continue home medications; Amlodipine and Diltiazem (6) Rhinorrhea Is this a current diagnosis for this admission?: Yes Plan: 1- Continue Home medications; Flonase and Singulair - Time Time Spent with patient: 15-24 minutes Medications reviewed and adjusted accordingly: Yes
[2017-03-31] MEDS: MONTELUKAST SODIUM 10 MG TABLET PO SCH (21:14)
[2017-03-31] MEDS: LEVOFLOXACIN 750 MG TABLET PO SCH (21:14)
[2017-04-01] MEDS: DILTIAZEM HCL 60 MG TABLET PO SCH ×5 (01:04→23:44)
[2017-04-01] MEDS: IPRATROPIUM BROMIDE 0.02% NEB 0.5 MG/2.5 ML AMPUL NEB SCH ×4 (03:07→20:36)
[2017-04-01] MEDS: LEVALBUTEROL HCL NEB 1.25 MG/3 ML AMPUL NEB SCH ×4 (03:07→20:36)
[2017-04-01] MEDS: METHYLPREDNISOLONE INJ 40 MG/1 ML SDV IV SCH ×3 (05:23→22:41)
[2017-04-01] MEDS: LANSOPRAZOLE 30 MG TAB.RAP.DR PO SCH ×2 (05:23→17:36)
[2017-04-01] MEDS: HEPARIN SOD (PORCINE) 5,000 UNIT/ML 1 ML SYRINGE SUBCUT SCH ×3 (05:24→23:03)
[2017-04-01] MEDS: GUAIFENESIN 600 MG TABLET.SA PO SCH ×2 (09:20→22:41)
[2017-04-01] MEDS: AMLODIPINE BESYLATE 5 MG TABLET PO SCH (09:21)
[2017-04-01] MEDS: CETIRIZINE 10 MG TABLET PO SCH (09:22)
[2017-04-01] MEDS: FLUTICASONE NASAL SPRAY 50 MCG/SPRY 120 SPRAY/16 GM NASL SCH ×2 (09:23→22:39)
[2017-04-01] MEDS: DOCUSATE SODIUM 100 MG CAPSULE PO SCH ×2 (09:23→17:37)
[2017-04-01] MEDS: BUDESONIDE/FORMOTEROL 160-4.5 MCG 60 PUFF/6 GM MDI IH SCH ×2 (09:23→22:39)
--- NOTE | 2017-04-01 14:54 | PDOC PROGRESS REPORT ---
Subjective Progress Note for:: 04/01/17 Subjective:: Patient is seen resting comfortably in bed. She reports improvements in breathing with decreased cough and sputum production. She denies dyspnea with activity. She reports occasional wheezing, though feels that the neb treatments provide her relief for a longer period of time. Pt states that she feels she "is turning the corner." She does ask about home oxygen; discussed that as we approach discharge we will evaluate for qualification for home O2. She denies chest pain, dyspnea, palpitations. She denies nausea, vomiting, abdominal pain. She denies body aches, fevers, chills. She has no other questions or concerns. Review of systems is otherwise negative. Physical Exam Vital Signs: Temp Pulse Resp BP Pulse Ox 97.7 F 90 22 H 146/75 H 96 04/01/17 12:16 04/01/17 14:00 04/01/17 12:16 04/01/17 12:16 04/01/17 12:16 Intake & Output 03/31/17 04/01/17 04/02/17 06:59 06:59 06:59 Intake Total 3507 3173 598 Output Total 4300 4550 1000 Balance -793 -1377 -402 Weight 101.4 kg 101.3 kg General appearance: PRESENT: no acute distress, obese, well-developed, well- nourished Head exam: PRESENT: atraumatic, normocephalic Eye exam: PRESENT: conjunctiva pink, EOMI, PERRLA. ABSENT: scleral icterus Ear exam: PRESENT: normal external ear exam Mouth exam: PRESENT: moist, tongue midline Neck exam: PRESENT: full ROM. ABSENT: carotid bruit, JVD, lymphadenopathy, tenderness, thyromegaly Respiratory exam: PRESENT: symmetrical, unlabored, wheezes. ABSENT: accessory muscle use, crackles, rales, rhonchi - Slight expiratory wheezing bilateral lower preciado; improved from yeterday Cardiovascular exam: PRESENT: RRR, +S1, +S2. ABSENT: gallop, rubs, systolic murmur Pulses: PRESENT: normal radial pulses Vascular exam: PRESENT: normal capillary refill GI/Abdominal exam: PRESENT: normal bowel sounds, soft. ABSENT: distended, mass , organolmegaly, tenderness Rectal exam: PRESENT: deferred Extremities exam: PRESENT: full ROM. ABSENT: calf tenderness, pedal edema Musculoskeletal exam: PRESENT: ambulatory, full ROM, normal inspection Neurological exam: PRESENT: alert, awake, oriented to person, oriented to place , oriented to time, oriented to situation, CN II-XII grossly intact. ABSENT: motor sensory deficit Psychiatric exam: PRESENT: appropriate affect, normal mood Skin exam: PRESENT: dry, intact, warm. ABSENT: cyanosis, rash Results Laboratory Results: 03/31/17 05:47 03/31/17 05:47 Impressions: Chest X-Ray 03/27/17 00:00 IMPRESSION: NO ACUTE RADIOGRAPHIC FINDING IN THE CHEST. Assessment & Plan - Diagnosis (1) Acute respiratory failure with hypoxemia Is this a current diagnosis for this admission?: Yes Plan: Patient has a history of asthma and COPD, both likely exacerbated by acute respiratory infection. Improved. 1- Continue IV steroids 2- Continue PO Levaquin 3- Continue scheduled and prn nebs 4- Continue mucinex 5- Supplemental oxygen to keep O2 sats >88% (2) Asthma Qualifiers: Asthma severity: moderate persistent Asthma complication type: with acute exacerbation Qualified Code(s): J45.41 - Moderate persistent asthma with ( acute) exacerbation Is this a current diagnosis for this admission?: Yes Plan: As above 1- Started on Symbicort for maintenance therapy (3) COPD with exacerbation Is this a current diagnosis for this admission?: Yes Plan: As above (4) GERD (gastroesophageal reflux disease) Qualifiers: Esophagitis presence: without esophagitis Qualified Code(s): K21.9 - Gastro -esophageal reflux disease without esophagitis Is this a current diagnosis for this admission?: Yes Plan: 1- Continue PPI (5) Hypertension Qualifiers: Hypertension type: essential hypertension Qualified Code(s): I10 - Essential (primary) hypertension Is this a current diagnosis for this admission?: Yes Plan: Uncontrolled; has not required prn Hydralazine 1- Continue home medications; Amlodipine and Diltiazem (6) Rhinorrhea Is this a current diagnosis for this admission?: Yes - Time Time Spent with patient: 15-24 minutes Medications reviewed and adjusted accordingly: Yes
[2017-04-01] MEDS: LEVOFLOXACIN 750 MG TABLET PO SCH (22:41)
[2017-04-01] MEDS: MONTELUKAST SODIUM 10 MG TABLET PO SCH (22:41)
[2017-04-02] MEDS: LEVALBUTEROL HCL NEB 1.25 MG/3 ML AMPUL NEB SCH ×4 (02:16→21:09)
[2017-04-02] MEDS: IPRATROPIUM BROMIDE 0.02% NEB 0.5 MG/2.5 ML AMPUL NEB SCH ×4 (02:16→21:10)
[2017-04-02 05:56] LABS: HEMATOCRIT 38.3 % (36.0-47.0); HEMOGLOBIN 12.9 g/dL (12.0-15.5); HGB HCT DIFFERENCE 0.4; MEAN CORPUSCULAR HGB CONC 33.6 g/dL (32.0-36.0); MEAN CORPUSCULAR VOLUME 78 fl (80-97); RED BLOOD COUNT 4.95 10^6/uL (3.72-5.28); RED CELL DISTRIBUTION WIDTH 14.6 % (11.5-14.0); WHITE BLOOD COUNT 11.5 10^3/uL (4.0-10.5)
[2017-04-02] MEDS: DILTIAZEM HCL 60 MG TABLET PO SCH ×3 (06:26→16:59)
[2017-04-02] MEDS: METHYLPREDNISOLONE INJ 40 MG/1 ML SDV IV SCH (06:26)
[2017-04-02] MEDS: LANSOPRAZOLE 30 MG TAB.RAP.DR PO SCH ×2 (06:29→16:59)
[2017-04-02] MEDS: HEPARIN SOD (PORCINE) 5,000 UNIT/ML 1 ML SYRINGE SUBCUT SCH ×3 (06:30→21:36)
[2017-04-02] MEDS: FLUTICASONE NASAL SPRAY 50 MCG/SPRY 120 SPRAY/16 GM NASL SCH ×2 (09:04→21:39)
[2017-04-02] MEDS: BUDESONIDE/FORMOTEROL 160-4.5 MCG 60 PUFF/6 GM MDI IH SCH ×2 (09:05→21:38)
[2017-04-02] MEDS: CETIRIZINE 10 MG TABLET PO SCH (09:06)
[2017-04-02] MEDS: DOCUSATE SODIUM 100 MG CAPSULE PO SCH ×2 (09:06→17:00)
[2017-04-02] MEDS: AMLODIPINE BESYLATE 5 MG TABLET PO SCH (09:06)
[2017-04-02] MEDS: GUAIFENESIN 600 MG TABLET.SA PO SCH ×2 (09:06→21:37)
--- NOTE | 2017-04-02 13:42 | PDOC PROGRESS REPORT ---
Subjective Progress Note for:: 04/02/17 Subjective:: Patient is seen resting comfortably in bed with family present. She reports continued improvements in breathing with decreased cough and sputum production. She denies dyspnea with activity. She reports continued occasional wheezing. She was successfully weaned to room air yesterday and did not require supplemental oxygen overnight. She denies chest pain, dyspnea, palpitations. She denies nausea, vomiting, abdominal pain. She denies body aches, fevers, chills. She has no other questions or concerns. Review of systems is otherwise negative. Physical Exam Vital Signs: Temp Pulse Resp BP Pulse Ox 98.5 F 88 16 142/72 H 94 04/02/17 07:21 04/02/17 07:43 04/02/17 07:43 04/02/17 07:21 04/02/17 07:43 Intake & Output 04/01/17 04/02/17 04/03/17 06:59 06:59 06:59 Intake Total 3173 3257 Output Total 4550 4600 Balance -1377 -1343 Weight 101.3 kg 100.2 kg General appearance: PRESENT: no acute distress, cooperative, obese, well- developed Head exam: PRESENT: atraumatic, normocephalic Eye exam: PRESENT: conjunctiva pink, EOMI, PERRLA. ABSENT: scleral icterus Mouth exam: PRESENT: moist, tongue midline Neck exam: PRESENT: full ROM. ABSENT: carotid bruit, JVD, lymphadenopathy, tenderness, thyromegaly Respiratory exam: PRESENT: symmetrical, unlabored, wheezes. ABSENT: crackles, rales, retraction, rhonchi Cardiovascular exam: PRESENT: RRR, rubs, +S2. ABSENT: clicks, gallop, systolic murmur Pulses: PRESENT: normal radial pulses Vascular exam: PRESENT: normal capillary refill GI/Abdominal exam: PRESENT: normal bowel sounds, soft. ABSENT: mass, organolmegaly, tenderness Rectal exam: PRESENT: deferred Musculoskeletal exam: PRESENT: ambulatory, full ROM, normal inspection Neurological exam: PRESENT: alert, awake, oriented to person, oriented to place , oriented to time, oriented to situation, CN II-XII grossly intact. ABSENT: motor sensory deficit Psychiatric exam: PRESENT: appropriate affect, normal mood Skin exam: PRESENT: dry, intact, normal color, warm. ABSENT: cyanosis, rash Results Laboratory Results: 04/02/17 05:27 03/31/17 05:47 04/02/17 05:27 WBC 11.5 H RBC 4.95 Hgb 12.9 Hct 38.3 MCV 78 L MCH 26.0 L MCHC 33.6 RDW 14.6 H Plt Count 344 03/27/17 21:49 Blood Blood Culture - Final NO GROWTH IN 5 DAYS Impressions: Chest X-Ray 03/27/17 00:00 IMPRESSION: NO ACUTE RADIOGRAPHIC FINDING IN THE CHEST. Assessment & Plan - Diagnosis (1) Acute respiratory failure with hypoxemia Is this a current diagnosis for this admission?: Yes Plan: Patient has a history of asthma and COPD, both likely exacerbated by acute respiratory infection. Improved. 1- Will transition to PO Prednisone 2- Continue PO Levaquin (dose #4 today) 3- Continue scheduled and prn nebs 4- Continue mucinex 5- Supplemental oxygen to keep O2 sats >88% (2) Asthma Qualifiers: Asthma severity: moderate persistent Asthma complication type: with acute exacerbation Qualified Code(s): J45.41 - Moderate persistent asthma with ( acute) exacerbation Is this a current diagnosis for this admission?: Yes Plan: As above 1- Continue on Symbicort for maintenance therapy 2- Plan for Spiriva at discharge (3) COPD with exacerbation Is this a current diagnosis for this admission?: Yes Plan: As above (4) GERD (gastroesophageal reflux disease) Qualifiers: Esophagitis presence: without esophagitis Qualified Code(s): K21.9 - Gastro -esophageal reflux disease without esophagitis Is this a current diagnosis for this admission?: Yes Plan: 1- Continue PPI (5) Hypertension Qualifiers: Hypertension type: essential hypertension Qualified Code(s): I10 - Essential (primary) hypertension Is this a current diagnosis for this admission?: Yes Plan: Uncontrolled; has not required prn Hydralazine 1- Continue home medications; Amlodipine and Diltiazem (6) Rhinorrhea Is this a current diagnosis for this admission?: Yes Plan: 1- Continue Home medications; Flonase and Singulair - Time Time Spent with patient: 15-24 minutes Medications reviewed and adjusted accordingly: Yes Anticipated discharge: Home Within: within 72 hours
[2017-04-02] MEDS: MONTELUKAST SODIUM 10 MG TABLET PO SCH (21:37)
[2017-04-02] MEDS: LEVOFLOXACIN 750 MG TABLET PO SCH (21:37)
[2017-04-02] MEDS ORDERED: METHYLPREDNISOLONE INJ 40 MG/1 ML SDV IV SCH (22:00)
[2017-04-03] MEDS: DILTIAZEM HCL 60 MG TABLET PO SCH ×4 (00:54→17:22)
[2017-04-03] MEDS: LEVALBUTEROL HCL NEB 1.25 MG/3 ML AMPUL NEB SCH ×4 (01:45→21:39)
[2017-04-03] MEDS: IPRATROPIUM BROMIDE 0.02% NEB 0.5 MG/2.5 ML AMPUL NEB SCH ×4 (01:45→21:38)
[2017-04-03] MEDS: HEPARIN SOD (PORCINE) 5,000 UNIT/ML 1 ML SYRINGE SUBCUT SCH ×3 (05:19→22:31)
[2017-04-03] MEDS: LANSOPRAZOLE 30 MG TAB.RAP.DR PO SCH ×2 (05:25→17:22)
[2017-04-03] MEDS: BUDESONIDE/FORMOTEROL 160-4.5 MCG 60 PUFF/6 GM MDI IH SCH ×2 (09:53→22:31)
[2017-04-03] MEDS: FLUTICASONE NASAL SPRAY 50 MCG/SPRY 120 SPRAY/16 GM NASL SCH ×2 (09:53→22:30)
[2017-04-03] MEDS: GUAIFENESIN 600 MG TABLET.SA PO SCH ×2 (09:55→22:30)
[2017-04-03] MEDS: CETIRIZINE 10 MG TABLET PO SCH (09:55)
[2017-04-03] MEDS: AMLODIPINE BESYLATE 5 MG TABLET PO SCH (09:55)
[2017-04-03] MEDS: DOCUSATE SODIUM 100 MG CAPSULE PO SCH ×2 (09:56→17:21)
[2017-04-03] MEDS ORDERED: PREDNISONE 20 MG TABLET PO SCH (10:00)
--- NOTE | 2017-04-03 13:04 | PDOC PROGRESS REPORT ---
Subjective Progress Note for:: 04/03/17 Subjective:: Patient is seen resting comfortably in bed. She reports continued improvements in breathing. She states that her cough has resolved. She denies dyspnea with activity. She reports continued occasional wheezing. She remains on room air and no longer requires supplemental oxygen. She denies chest pain, dyspnea, palpitations. She denies nausea, vomiting, abdominal pain. She denies body aches, fevers, chills. She has no other questions or concerns. Review of systems is otherwise negative. Physical Exam Vital Signs: Temp Pulse Resp BP Pulse Ox 98.2 F 97 20 116/84 95 04/03/17 11:39 04/03/17 11:39 04/03/17 11:39 04/03/17 11:39 04/03/17 11:39 Intake & Output 04/02/17 04/03/17 04/04/17 06:59 06:59 06:59 Intake Total 3257 1751 Output Total 4600 6200 Balance -3773 -9305 Weight 100.2 kg 100 kg General appearance: PRESENT: no acute distress, cooperative, obese, well- nourished Head exam: PRESENT: atraumatic, normocephalic Eye exam: PRESENT: conjunctiva pink, EOMI, PERRLA. ABSENT: scleral icterus Ear exam: PRESENT: normal external ear exam Mouth exam: PRESENT: moist, tongue midline Neck exam: PRESENT: full ROM. ABSENT: carotid bruit, JVD, lymphadenopathy, tenderness, thyromegaly Respiratory exam: PRESENT: symmetrical, unlabored, wheezes - Expiratory wheezes throughout.. ABSENT: accessory muscle use, crackles, rales, rhonchi, tachypnea Cardiovascular exam: PRESENT: RRR, +S1, +S2. ABSENT: clicks, gallop, rubs, systolic murmur Pulses: PRESENT: normal radial pulses Vascular exam: PRESENT: normal capillary refill GI/Abdominal exam: PRESENT: normal bowel sounds, soft. ABSENT: firm, guarding, mass, organolmegaly, tenderness Rectal exam: PRESENT: deferred Extremities exam: PRESENT: full ROM. ABSENT: calf tenderness, pedal edema Musculoskeletal exam: PRESENT: ambulatory, normal inspection Neurological exam: PRESENT: alert, awake, oriented to person, oriented to place , oriented to time, oriented to situation, CN II-XII grossly intact, normal gait. ABSENT: motor sensory deficit Psychiatric exam: PRESENT: appropriate affect, normal mood Skin exam: PRESENT: dry, intact, warm. ABSENT: cyanosis, erythema, rash Results Laboratory Results: 04/02/17 05:27 03/31/17 05:47 Impressions: Chest X-Ray 03/27/17 00:00 IMPRESSION: NO ACUTE RADIOGRAPHIC FINDING IN THE CHEST. Assessment & Plan - Diagnosis (1) Acute respiratory failure with hypoxemia Is this a current diagnosis for this admission?: Yes Plan: Patient has a history of asthma and COPD, both likely exacerbated by acute respiratory infection. continued improvements. 1- Continue PO Prednisone 2- Continue PO Levaquin (dose #5 today) 3- Continue scheduled and prn nebs 4- Continue mucinex 5- Supplemental oxygen to keep O2 sats >88% (2) Asthma Qualifiers: Asthma severity: moderate persistent Asthma complication type: with acute exacerbation Qualified Code(s): J45.41 - Moderate persistent asthma with ( acute) exacerbation Is this a current diagnosis for this admission?: Yes Plan: As above 1- Continue on Symbicort for maintenance therapy 2- Plan for Spiriva at discharge (3) COPD with exacerbation Is this a current diagnosis for this admission?: Yes Plan: As above (4) GERD (gastroesophageal reflux disease) Qualifiers: Esophagitis presence: without esophagitis Qualified Code(s): K21.9 - Gastro -esophageal reflux disease without esophagitis Is this a current diagnosis for this admission?: Yes Plan: 1- Continue PPI (5) Hypertension Qualifiers: Hypertension type: essential hypertension Qualified Code(s): I10 - Essential (primary) hypertension Is this a current diagnosis for this admission?: Yes Plan: Uncontrolled; Improved today. Has not required prn Hydralazine 1- Continue home medications; Amlodipine and Diltiazem (6) Rhinorrhea Is this a current diagnosis for this admission?: Yes - Time Time Spent with patient: 15-24 minutes Medications reviewed and adjusted accordingly: Yes Anticipated discharge: Home Within: within 48 hours
[2017-04-03] MEDS: METHYLPREDNISOLONE INJ 40 MG/1 ML SDV IV SCH (22:30)
[2017-04-03] MEDS: LEVOFLOXACIN 750 MG TABLET PO SCH (22:30)
[2017-04-03] MEDS: MONTELUKAST SODIUM 10 MG TABLET PO SCH (22:30)
[2017-04-04] MEDS: DILTIAZEM HCL 60 MG TABLET PO SCH ×5 (00:21→23:50)
[2017-04-04] MEDS: IPRATROPIUM BROMIDE 0.02% NEB 0.5 MG/2.5 ML AMPUL NEB SCH ×4 (01:31→20:45)
[2017-04-04] MEDS: LEVALBUTEROL HCL NEB 1.25 MG/3 ML AMPUL NEB SCH ×4 (01:31→20:45)
[2017-04-04] MEDS: HEPARIN SOD (PORCINE) 5,000 UNIT/ML 1 ML SYRINGE SUBCUT SCH ×3 (05:45→22:14)
[2017-04-04] MEDS: LANSOPRAZOLE 30 MG TAB.RAP.DR PO SCH ×2 (05:52→18:39)
[2017-04-04] MEDS: METHYLPREDNISOLONE INJ 40 MG/1 ML SDV IV SCH ×3 (05:53→22:29)
[2017-04-04 08:13] LABS: HEMATOCRIT 41.3 % (36.0-47.0); HEMOGLOBIN 13.7 g/dL (12.0-15.5); HGB HCT DIFFERENCE -0.2; MEAN CORPUSCULAR HEMOGLOBIN 25.8 pg (27.0-33.4); MEAN CORPUSCULAR HGB CONC 33.1 g/dL (32.0-36.0); MEAN CORPUSCULAR VOLUME 78 fl (80-97); RED BLOOD COUNT 5.31 10^6/uL (3.72-5.28); RED CELL DISTRIBUTION WIDTH 14.6 % (11.5-14.0); WHITE BLOOD COUNT 14.7 10^3/uL (4.0-10.5)
[2017-04-04 08:28] LABS: ANION GAP 8 (5-19); BLOOD UREA NITROGEN 19 mg/dL (7-20); CARBON DIOXIDE 34 mmol/L (22-30); CHLORIDE 99 mmol/L (98-107); CREATININE RESULT 0.66 mg/dL (0.52-1.25); GLUCOSE 340 mg/dL (75-110); POTASSIUM 5.2 mmol/L (3.6-5.0)
[2017-04-04] MEDS: AMLODIPINE BESYLATE 5 MG TABLET PO SCH (11:04)
[2017-04-04] MEDS: CETIRIZINE 10 MG TABLET PO SCH (11:04)
[2017-04-04] MEDS: DOCUSATE SODIUM 100 MG CAPSULE PO SCH ×2 (11:04→18:39)
[2017-04-04] MEDS: FLUTICASONE NASAL SPRAY 50 MCG/SPRY 120 SPRAY/16 GM NASL SCH ×2 (11:05→22:12)
[2017-04-04] MEDS: BUDESONIDE/FORMOTEROL 160-4.5 MCG 60 PUFF/6 GM MDI IH SCH ×2 (11:05→22:11)
[2017-04-04] MEDS: GUAIFENESIN 600 MG TABLET.SA PO SCH ×2 (11:08→22:11)
--- NOTE | 2017-04-04 12:43 | PDOC PROGRESS REPORT ---
Subjective Progress Note for:: 04/04/17 Subjective:: Patient is seen sitting up in chair. She denies appreciable improvements in her breathing over night. This morning, she c/o occasional productive cough. She reports continued wheezing. She remains on room air and no longer requires supplemental oxygen. She denies dyspnea at rest or with activity. She denies chest pain, dyspnea, palpitations. She denies nausea, vomiting, abdominal pain. She denies body aches, fevers, chills. She has no other questions or concerns. Review of systems is otherwise negative. Physical Exam Vital Signs: Temp Pulse Resp BP Pulse Ox 98.2 F 100 18 125/73 97 04/04/17 11:16 04/04/17 11:16 04/04/17 11:16 04/04/17 11:16 04/04/17 11:16 Intake & Output 04/03/17 04/04/17 04/05/17 06:59 06:59 06:59 Intake Total 1751 1848 Output Total 6200 1300 Balance -4449 548 Weight 100 kg 100 kg General appearance: PRESENT: no acute distress, well-developed, well-nourished Head exam: PRESENT: atraumatic, normocephalic Eye exam: PRESENT: conjunctiva pink, EOMI, PERRLA. ABSENT: scleral icterus Ear exam: PRESENT: normal external ear exam Mouth exam: PRESENT: moist, tongue midline Neck exam: ABSENT: carotid bruit, JVD, lymphadenopathy, thyromegaly Respiratory exam: PRESENT: symmetrical, unlabored, wheezes - Bibasilar expiratory wheezing. ABSENT: rales, rhonchi Cardiovascular exam: PRESENT: RRR, +S1, +S2. ABSENT: diastolic murmur, rubs, systolic murmur Pulses: PRESENT: normal dorsalis pedis pul Vascular exam: PRESENT: normal capillary refill GI/Abdominal exam: PRESENT: normal bowel sounds, soft. ABSENT: distended, guarding, mass, organolmegaly, rebound, tenderness Rectal exam: PRESENT: deferred Extremities exam: PRESENT: full ROM. ABSENT: calf tenderness, clubbing, pedal edema Neurological exam: PRESENT: alert, awake, oriented to person, oriented to place , oriented to time, oriented to situation, CN II-XII grossly intact. ABSENT: motor sensory deficit Psychiatric exam: PRESENT: appropriate affect, normal mood. ABSENT: homicidal ideation, suicidal ideation Skin exam: PRESENT: dry, intact, warm. ABSENT: cyanosis, rash Results Laboratory Results: 04/04/17 08:01 04/04/17 08:01 04/04/17 04/04/17 08:01 08:01 WBC 14.7 H RBC 5.31 H Hgb 13.7 Hct 41.3 MCV 78 L MCH 25.8 L MCHC 33.1 RDW 14.6 H Plt Count 293 Sodium 141.0 Potassium 5.2 H Chloride 99 Carbon Dioxide 34 H Anion Gap 8 BUN 19 Creatinine 0.66 Est GFR ( Amer) > 60 Est GFR (Non-Af Amer) > 60 Glucose 340 H Calcium 10.0 Impressions: Chest X-Ray 03/27/17 00:00 IMPRESSION: NO ACUTE RADIOGRAPHIC FINDING IN THE CHEST. Assessment & Plan - Diagnosis (1) Acute respiratory failure with hypoxemia Is this a current diagnosis for this admission?: Yes Plan: Patient has a history of asthma and COPD, both likely exacerbated by acute respiratory infection. continued improvements. 1- Resumed IV Solumedrol 2/2 worsening wheezing while on PO 2- Continue PO Levaquin (dose #6 today) 3- Continue scheduled and prn nebs 4- Continue mucinex 5- Supplemental oxygen to keep O2 sats >88% (2) Asthma Qualifiers: Asthma severity: moderate persistent Asthma complication type: with acute exacerbation Qualified Code(s): J45.41 - Moderate persistent asthma with ( acute) exacerbation Is this a current diagnosis for this admission?: Yes Plan: As above 1- Continue on Symbicort for maintenance therapy 2- Plan for Spiriva at discharge (3) COPD with exacerbation Is this a current diagnosis for this admission?: Yes Plan: As above (4) Leukocytosis Qualifiers: Leukocytosis type: unspecified Qualified Code(s): D72.829 - Elevated white blood cell count, unspecified Is this a current diagnosis for this admission?: Yes Plan: Elevated today; likely result of IV Solumedrol. Will continue to monitor. (5) GERD (gastroesophageal reflux disease) Qualifiers: Esophagitis presence: without esophagitis Qualified Code(s): K21.9 - Gastro -esophageal reflux disease without esophagitis Is this a current diagnosis for this admission?: Yes Plan: 1- Continue PPI (6) Hypertension Qualifiers: Hypertension type: essential hypertension Qualified Code(s): I10 - Essential (primary) hypertension Is this a current diagnosis for this admission?: Yes Plan: Uncontrolled; Improved today. Has not required prn Hydralazine 1- Continue home medications; Amlodipine and Diltiazem (7) Rhinorrhea Is this a current diagnosis for this admission?: Yes Plan: 1- Continue Home medications; Flonase and Singulair
--- NOTE | 2017-04-04 14:16 | RADIOLOGY REPORT (SQ) ---
EXAM DESCRIPTION: CHEST PA/LAT COMPLETED DATE/TIME: 04/04/2017 12:49 pm REASON FOR STUDY: dyspnea, wheezing COMPARISON: CT angio chest 02/02/2017, 12/11/2016 Two-view chest 01/08/2017 EXAM PARAMETERS: NUMBER OF VIEWS: two views TECHNIQUE: Digital Frontal and Lateral radiographic views of the chest acquired. RADIATION DOSE: NA LIMITATIONS: none FINDINGS: LUNGS AND PLEURA: No opacities, masses or pneumothorax. No pleural effusion. MEDIASTINUM AND HILAR STRUCTURES: No masses or contour abnormalities. HEART AND VASCULAR STRUCTURES: Heart normal size. No evidence for failure. BONES: No acute findings. HARDWARE: None in the chest. OTHER: No other significant finding. IMPRESSION: NO SIGNIFICANT RADIOGRAPHIC FINDING IN THE CHEST. TECHNICAL DOCUMENTATION: JOB ID: [id number] [employer]- All Rights Reserved
[2017-04-04] MEDS: MONTELUKAST SODIUM 10 MG TABLET PO SCH (22:12)
[2017-04-04] MEDS: LEVOFLOXACIN 750 MG TABLET PO SCH (22:12)
[2017-04-05] MEDS: LEVALBUTEROL HCL NEB 1.25 MG/3 ML AMPUL NEB SCH ×4 (02:34→21:01)
[2017-04-05] MEDS: IPRATROPIUM BROMIDE 0.02% NEB 0.5 MG/2.5 ML AMPUL NEB SCH ×4 (02:34→21:00)
[2017-04-05] MEDS: DILTIAZEM HCL 60 MG TABLET PO SCH ×4 (06:24→23:36)
[2017-04-05] MEDS: LANSOPRAZOLE 30 MG TAB.RAP.DR PO SCH ×2 (06:24→17:46)
[2017-04-05] MEDS: METHYLPREDNISOLONE INJ 40 MG/1 ML SDV IV SCH (06:24)
[2017-04-05] MEDS: HEPARIN SOD (PORCINE) 5,000 UNIT/ML 1 ML SYRINGE SUBCUT SCH ×3 (07:12→21:50)
[2017-04-05] MEDS: AMLODIPINE BESYLATE 5 MG TABLET PO SCH (09:34)
[2017-04-05] MEDS: CETIRIZINE 10 MG TABLET PO SCH (09:34)
[2017-04-05] MEDS: DOCUSATE SODIUM 100 MG CAPSULE PO SCH ×2 (09:34→17:46)
[2017-04-05] MEDS: GUAIFENESIN 600 MG TABLET.SA PO SCH ×2 (09:34→21:49)
[2017-04-05] MEDS: FLUTICASONE NASAL SPRAY 50 MCG/SPRY 120 SPRAY/16 GM NASL SCH ×2 (09:35→21:49)
[2017-04-05] MEDS: BUDESONIDE/FORMOTEROL 160-4.5 MCG 60 PUFF/6 GM MDI IH SCH ×2 (09:35→21:49)
--- NOTE | 2017-04-05 09:45 | PDOC PROGRESS REPORT ---
Subjective Progress Note for:: 04/05/17 Subjective:: Patient is seen sitting up on edge of bed eating breakfast. She states that she feels fine today; she denies dyspnea with activity and wheezing. She remains on room air and no longer requires supplemental oxygen. She does continue to have an occasionally productive cough. She has no questions or concerns. She denies fevers, chills, body aches, chest pain, dyspnea. Review of systems is otherwise negative. Physical Exam Vital Signs: Temp Pulse Resp BP Pulse Ox 98.3 F 119 H 18 136/71 H 95 04/05/17 06:55 04/05/17 08:14 04/05/17 08:14 04/05/17 06:55 04/05/17 08:14 Intake & Output 04/04/17 04/05/17 04/06/17 06:59 06:59 06:59 Intake Total 1848 3970 Output Total 1300 2200 Balance 548 1770 Weight 100 kg 98.9 kg General appearance: PRESENT: no acute distress, obese, well-developed, well- nourished Head exam: PRESENT: atraumatic, normocephalic Eye exam: PRESENT: conjunctiva pink, EOMI, PERRLA. ABSENT: scleral icterus Ear exam: PRESENT: normal external ear exam Mouth exam: PRESENT: moist, tongue midline Neck exam: ABSENT: carotid bruit, JVD, lymphadenopathy, thyromegaly Respiratory exam: PRESENT: clear to auscultation connor, symmetrical, unlabored. ABSENT: rales, rhonchi, wheezes Cardiovascular exam: PRESENT: RRR. ABSENT: diastolic murmur, rubs, systolic murmur Pulses: PRESENT: normal dorsalis pedis pul Vascular exam: PRESENT: normal capillary refill GI/Abdominal exam: PRESENT: normal bowel sounds, soft. ABSENT: distended, guarding, mass, organolmegaly, rebound, tenderness Rectal exam: PRESENT: deferred Extremities exam: PRESENT: full ROM. ABSENT: calf tenderness, clubbing, pedal edema Neurological exam: PRESENT: alert, awake, oriented to person, oriented to place , oriented to time, oriented to situation, CN II-XII grossly intact. ABSENT: motor sensory deficit Psychiatric exam: PRESENT: appropriate affect, normal mood. ABSENT: homicidal ideation, suicidal ideation Skin exam: PRESENT: dry, intact, normal color, warm. ABSENT: cyanosis, rash Results Laboratory Results: 04/04/17 08:01 04/04/17 08:01 Impressions: Chest X-Ray 04/04/17 00:00 IMPRESSION: NO SIGNIFICANT RADIOGRAPHIC FINDING IN THE CHEST. Assessment & Plan - Diagnosis (1) Acute respiratory failure with hypoxemia Is this a current diagnosis for this admission?: Yes Plan: Patient has a history of asthma and COPD, both likely exacerbated by acute respiratory infection. Improved. 1- Transition to PO Prednisone today 2- Continue PO Levaquin (dose #7 today) 3- Continue scheduled and prn nebs 4- Continue mucinex 5- Supplemental oxygen to keep O2 sats >88% 6- Encourage ambulation (2) Asthma Qualifiers: Asthma severity: moderate persistent Asthma complication type: with acute exacerbation Qualified Code(s): J45.41 - Moderate persistent asthma with ( acute) exacerbation Is this a current diagnosis for this admission?: Yes Plan: As above 1- Continue on Symbicort for maintenance therapy 2- Plan for Spiriva at discharge (3) COPD with exacerbation Is this a current diagnosis for this admission?: Yes Plan: As above (4) Leukocytosis Qualifiers: Leukocytosis type: unspecified Qualified Code(s): D72.829 - Elevated white blood cell count, unspecified Is this a current diagnosis for this admission?: Yes Plan: Elevated; likely a result of steroid therapy. Overall, trending down. Will continue to monitor. (5) GERD (gastroesophageal reflux disease) Qualifiers: Esophagitis presence: without esophagitis Qualified Code(s): K21.9 - Gastro -esophageal reflux disease without esophagitis Is this a current diagnosis for this admission?: Yes Plan: 1- Continue PPI (6) Hypertension Qualifiers: Hypertension type: essential hypertension Qualified Code(s): I10 - Essential (primary) hypertension Is this a current diagnosis for this admission?: Yes Plan: Uncontrolled; Improved today. Has not required prn Hydralazine 1- Continue home medications; Amlodipine and Diltiazem (7) Rhinorrhea Is this a current diagnosis for this admission?: Yes - Time Time Spent with patient: 15-24 minutes Medications reviewed and adjusted accordingly: Yes Anticipated discharge: Home Within: within 72 hours
[2017-04-05] MEDS ORDERED: PREDNISONE 20 MG TABLET PO SCH (10:00)
[2017-04-05] MEDS: LEVOFLOXACIN 750 MG TABLET PO SCH (21:49)
[2017-04-05] MEDS: MONTELUKAST SODIUM 10 MG TABLET PO SCH (21:49)
[2017-04-06] MEDS: IPRATROPIUM BROMIDE 0.02% NEB 0.5 MG/2.5 ML AMPUL NEB SCH ×2 (02:37→08:28)
[2017-04-06] MEDS: LEVALBUTEROL HCL NEB 1.25 MG/3 ML AMPUL NEB SCH ×2 (02:37→08:28)
[2017-04-06] MEDS: LANSOPRAZOLE 30 MG TAB.RAP.DR PO SCH (05:41)
[2017-04-06] MEDS: DILTIAZEM HCL 60 MG TABLET PO SCH ×2 (05:41→12:06)
[2017-04-06] MEDS: HEPARIN SOD (PORCINE) 5,000 UNIT/ML 1 ML SYRINGE SUBCUT SCH (05:42)
[2017-04-06] MEDS: CETIRIZINE 10 MG TABLET PO SCH (09:40)
[2017-04-06] MEDS: FLUTICASONE NASAL SPRAY 50 MCG/SPRY 120 SPRAY/16 GM NASL SCH (09:40)
[2017-04-06] MEDS: BUDESONIDE/FORMOTEROL 160-4.5 MCG 60 PUFF/6 GM MDI IH SCH (09:40)
[2017-04-06] MEDS: AMLODIPINE BESYLATE 5 MG TABLET PO SCH (09:41)
[2017-04-06] MEDS: GUAIFENESIN 600 MG TABLET.SA PO SCH (09:42)
[2017-04-06] MEDS: DOCUSATE SODIUM 100 MG CAPSULE PO SCH (09:44)
[2017-04-06] MEDS ORDERED: PREDNISONE 20 MG TABLET PO SCH (10:00)
--- NOTE | 2017-04-06 11:44 | PDOC DISCHARGE SUMMARY ---
General - Admit/Disc Date/PCP Admission Date/Primary Care Provider: 03/27/17 21:16 MILENA RAE MD Discharge Date: 04/06/17 - Discharge Diagnosis (1) Acute respiratory failure with hypoxemia Is this a current diagnosis for this admission?: Yes Summary: Secondary to right middle lobe pneumonia, COPD and asthma exacerbations. Improved with treatment of her pneumonia with Levaquin, scheduled and as needed neb treatments. She initially required BiPAP and has been successfully weaned to room air. (2) Asthma Is this a current diagnosis for this admission?: Yes Summary: Improved with treatment of her pneumonia, IV antibiotics, IV steroids. Initially required BiPAP and has been successfully weaned to room air. Patient was initiated on Symbicort and will be discharged with both Symbicort and Spiriva. (3) COPD with exacerbation Is this a current diagnosis for this admission?: Yes Summary: Improved with treatment of her pneumonia, IV antibiotics, IV steroids. Initially required BiPAP and has been successfully weaned to room air. Patient was initiated on Symbicort and will be discharged with both Symbicort and Spiriva. (4) GERD (gastroesophageal reflux disease) Is this a current diagnosis for this admission?: Yes (5) Pneumonia Is this a current diagnosis for this admission?: Yes Summary: Patient received IV Levaquin and was transitioned to p.o. Levaquin for discharge. Initially treated with BiPAP but now maintains sats on room with activity. Was provided IV Solu-Medrol and successfully transitioned to high- dose prednisone yesterday. Patient does take 20 mg of prednisone daily for her COPD. She will be discharged on prednisone taper down to her previous dosing as well as p.o. Levaquin. (6) Leukocytosis Is this a current diagnosis for this admission?: Yes Summary: Improved. Slight elevation in her WBCs noted 04/04 is attributed to resumption of IV Solu-Medrol. (7) Rhinorrhea Is this a current diagnosis for this admission?: Yes (8) Hypertension Is this a current diagnosis for this admission?: Yes Summary: Managed w/ home medications. - Additional Information Resuscitation Status: Full Code Discharge Diet: Regular Discharge Activity: Activity As Tolerated, Balance Activity w/Rest, Slowly Increase Activity Home Medications: Amlodipine Besylate [Norvasc 5 mg Tablet] 5 mg PO DAILY 03/28/17 Prednisone [Deltasone 20 mg Tablet] 20 mg PO DAILY 03/28/17 Budesonide/Formoterol Fumarate [Symbicort HFA 160-4.5 mcg Inhaler 6 gm] 2 puff IH Q12 #1 inhaler 04/06/17 Diltiazem HCl [Cardizem 60 mg Tablet] 60 mg PO Q6 tablet 04/06/17 Fluticasone Propionate [Flonase Nasal [place] 50 Mcg/[place] 16 gm] 2 spray NASL Q12 spray.pump 04/06/17 Guaifenesin [Mucinex Sr 600 mg Tablet.sa] 1,200 mg PO Q12 tablet.sa 04/06/17 Ipratropium/Albuterol Sulfate [Duoneb 3 ml Ampul] 3 ml [facility] [id number] PRN #14 vial.neb 04/06/17 Levofloxacin [Levaquin 750 mg Tablet] 750 mg PO QHS #7 tablet 04/06/17 Montelukast Sodium [Singulair 10 mg Tablet] 10 mg PO QHS tablet 04/06/17 Prednisone [Deltasone 20 mg Tablet] 80 mg PO DAILY #36 tablet 04/06/17 Tiotropium [place] [Spiriva [place] 18 mcg/dose (30 Dose)] 1 cap IH DAILY # 30 capsule 04/06/17 History of Present Illness Patient complains of: Patient reports continued gradual improvement in her breathing. She denies worsening dyspnea, wheeze, or cough w/ transition to po steroids yesterday. History of Present Illness: Per H&P by Dr. Moreno: ADDIE STEWART is a 56 year old female with a past medical history of aspirin exacerbated respiratory disease, nasal polyps, GERD and COPD who it been her usual state of health until approximately 24 hours prior to presentation with complaints of nasal congestion and postnasal drip resulting in nonproductive cough and shortness of breath. Patient denies lack of good control, chest pain, fever chills nausea vomiting. In the emergency room she was found to be tachypneic, tachycardic, rhonchi and hypoxia with oxygen saturations in the mid 80s requiring BiPAP at 50%. She received empiric antibiotics, albuterol and ipratropium then referred to the hospitalist for admission. Hospital Course Hospital Course: Patient received broad-spectrum antibiotics narrowed to IV Levaquin. She was treated with IV steroids and successfully transitioned to p.o. steroids. She did require BiPAP for a period of time but is now ambulatory on room air without dyspnea. She will be discharged home with prescriptions for DuoNeb, Levaquin, prednisone , Spiriva, and Symbicort. Physical Exam Vital Signs: Temp Pulse Resp BP Pulse Ox 98.7 F 103 H 18 134/70 H 94 04/06/17 07:48 04/06/17 07:48 04/06/17 07:48 04/06/17 07:48 04/06/17 07:48 Intake & Output 04/05/17 04/06/17 04/07/17 06:59 06:59 06:59 Intake Total 3970 3770 Output Total 2200 4760 Balance 1770 -990 Weight 98.9 kg 100 kg General appearance: PRESENT: no acute distress, obese, well-developed, well- nourished Head exam: PRESENT: atraumatic, normocephalic Eye exam: PRESENT: conjunctiva pink, EOMI, PERRLA. ABSENT: scleral icterus Ear exam: PRESENT: normal external ear exam Mouth exam: PRESENT: moist, tongue midline Neck exam: ABSENT: carotid bruit, JVD, lymphadenopathy, thyromegaly Respiratory exam: PRESENT: clear to auscultation connor, wheezes - RLL rhonichi. Occasional bibasilar expiratory wheeze.. ABSENT: rales, rhonchi Cardiovascular exam: PRESENT: RRR. ABSENT: diastolic murmur, rubs, systolic murmur Pulses: PRESENT: normal dorsalis pedis pul Vascular exam: PRESENT: normal capillary refill GI/Abdominal exam: PRESENT: normal bowel sounds, soft. ABSENT: distended, guarding, mass, organolmegaly, rebound, tenderness Rectal exam: PRESENT: deferred Extremities exam: PRESENT: full ROM. ABSENT: calf tenderness, clubbing, pedal edema Neurological exam: PRESENT: alert, awake, oriented to person, oriented to place , oriented to time, oriented to situation, CN II-XII grossly intact. ABSENT: motor sensory deficit Psychiatric exam: PRESENT: appropriate affect, normal mood. ABSENT: homicidal ideation, suicidal ideation Skin exam: PRESENT: dry, intact, warm. ABSENT: cyanosis, rash Results Laboratory Results: 04/04/17 08:01 04/04/17 08:01 Impressions: Chest X-Ray 04/04/17 00:00 IMPRESSION: NO SIGNIFICANT RADIOGRAPHIC FINDING IN THE CHEST. Qualifiers PATEINT BEING DISCHARGED WITH ANY OF THE FOLLOWING DIAGNOSIS?: No Plan Discharge Plan: Complete antibiotic course. High-dose prednisone taper to patient's chronic daily dose of Prednisone 20 mg. Continue neb treatments as needed. Follow up with PCP w/in 7-10 days. Keep appointment with Pulmonology as scheduled.
[2017-04-06 12:14] VITALS: BP 134/65
== END 2017-04-06 13:40 | disposition home or self-care (01) | DRG 189 ==
LOC: ER 19:39 → EH 21:16 → UNDOADMIN 21:45 → 3S 03-28 00:35
PROVIDERS: ADMIT Internal Medicine; ATTEND Internal Medicine
PROC: 5A09357 Assistance with Respiratory Ventilation, Less than 24 Consecutive Hours, Continuous Positive Airway Pressure (ICD-10-PCS; principal; 2017-03-27)
DX: J96.01 Acute respiratory failure with hypoxia (principal); J18.1 Lobar pneumonia, unspecified organism; J44.1 Chronic obstructive pulmonary disease with (acute) exacerbation; J44.0 Chronic obstructive pulmonary disease with (acute) lower respiratory infection; J45.41 Moderate persistent asthma with (acute) exacerbation; K21.9 Gastro-esophageal reflux disease without esophagitis; I10 Essential (primary) hypertension; J34.89 Other specified disorders of nose and nasal sinuses; Z79.899 Other long term (current) drug therapy; Z88.8 Allergy status to other drugs, medicaments and biological substances
CPT/HCPCS: 36415; 71010; 71020; 80048; 80053; 81001; 82803; 83605; 83880; 84484; 85025; 85027; 85610; 87040; 87086; 93005; 93010; 94640; 94660; 94667; 94668; 94799; 96365; 96366; 96375; 99291; J1644; J1956; J2920; J2930; J3475; J3490; J7030; J7512; J7620

== ENCOUNTER 2017-04-07 09:56 | Emergency (ER) | payer SELFPAY ==
[2017-04-07] MEDS ORDERED: TETRACAINE HCL 0.5% OPH SOLN 2 ML OU ONE (11:15)
--- NOTE | 2017-04-07 12:05 | ER Document Report ---
ED Eye Complaint - General Chief Complaint: Eye Pain Stated Complaint: EYE PAIN Notes: Patient is complaining of bilateral eye pain since she awakened this morning. Her eyes are both very light sensitive and she is having blurry vision, although it has improved a little bit since she awakened. She has never had this before and never been told she had glaucoma or increased pressure in her eyes. Patient was just an inpatient in this hospital and discharged home yesterday. She was treated for asthma and COPD. Says she was not started on any new medications. Patient says she has not been rubbing or scratching at her eyes. Has not had any drainage from the eyes although she has had some tearing. TRAVEL OUTSIDE OF THE [place] IN LAST 30 DAYS: No - Related Data Allergies/Adverse Reactions: benzonatate [From [employer]] Allergy (Verified 04/07/17 10:11) NSAIDS (Non-Steroidal Anti-Inflamma Allergy (Verified 04/07/17 10:11) Past Medical History - Social History Smoking Status: Unknown if Ever Smoked Cigarette use (# per day): No Family History: Reviewed & Not Pertinent, COPD, Hypertension Patient has suicidal ideation: No Patient has homicidal ideation: No - Past Medical History Cardiac Medical History: Reports: Hx Hypertension Pulmonary Medical History: Reports: Hx Asthma - Aspirin associated asthma, Hx COPD, Hx Pneumonia Psychiatric Medical History: Denies: Hx Depression - Immunizations Hx Diphtheria, Pertussis, Tetanus Vaccination: Yes Review of Systems - Review of Systems Notes: REVIEW OF SYSTEMS: CONSTITUTIONAL : Denies fever. EENT: See HPI. Denies ear, nose or mouth or throat pain or other symptoms. CARDIOVASCULAR: Denies chest pain. RESPIRATORY: Denies cough, chest congestion, or shortness of breath. GASTROINTESTINAL: Denies abdominal pain or nausea, vomiting, or diarrhea. GENITOURINARY: Denies difficulty or painful urinating, urinary frequency, blood in urine. MUSCULOSKELETAL: Denies back or neck pain. Denies joint pain or swelling. SKIN: Denies rash or skin lesions. NEUROLOGICAL: Denies LOC or altered mental status. Denies headache. Denies sensory loss or motor deficits. ALL OTHER SYSTEMS REVIEWED AND NEGATIVE. Physical Exam - Vital signs Vitals: Temp Pulse BP Pulse Ox 97.8 F 128 H 138/77 H 94 04/07/17 10:04/07/17 10:04/07/17 10:09 04/07/17 10:09 Interpretation: Normal, Tachycardic - Notes Notes: PHYSICAL EXAMINATION: GENERAL: Well-appearing, in no acute distress. Has own sunglasses. Lights are turned off in the room. HEAD: Atraumatic, normocephalic. EYES: Pupils equal round and reactive to light, extraocular movements intact. Mild tearing from both eyes. Conjunctiva somewhat injected. No purulent drainage. Instilled fluorescein and visualize both cornea. Patient has a punctate positive uptake in the center of the left cornea and has some faint smudgy looking positive uptake around the superior periphery of the right cornea. I obtained intraocular pressures of 24.4 bilaterally. ENT: oropharynx clear without exudates. Moist mucous membranes. NECK: Normal range of motion, supple. LUNGS: Breath sounds clear and equal bilaterally. HEART: Regular rate and rhythm without murmurs. Heart rate 108 by me at bedside. ABDOMEN: Soft, nontender. No guarding or rebound. BACK: No tenderness throughout entire back. EXTREMITIES: Normal range of motion without pain. No edema present. NEUROLOGICAL: Normal speech, normal gait. Normal sensory, motor, and reflex exams. Awake, alert, and oriented x3. Cranial nerves normal. PSYCH: Normal mood, normal affect. SKIN: Warm, dry, no rashes. Course - Re-evaluation Re-evalutation: 04/07/17 21:[address] Blair who will see the patient in his office at 1:00 today for possible new onset glaucoma. - Vital Signs Vital signs: Temp Pulse Resp BP Pulse Ox 97.8 F 113 H 19 126/79 H 92 04/07/17 12:11 04/07/17 12:11 04/07/17 12:11 04/07/17 12:11 04/07/17 12:11 Discharge - Discharge Clinical Impression: Eye pain Condition: Stable Disposition: HOME, SELF-CARE Additional Instructions: EYE PAIN Glaucoma You may have an increase in the pressure within the eye, called glaucoma. Glaucoma can be either acute or chronic. Acute glaucoma causes a sudden change of vision, eye pain, nausea and vomiting, and headache. Chronic glaucoma usually causes no symptoms, as it is a very gradual process. Either type of glaucoma can result in blindness if untreated. There is no immediate risk to your eyesight, but it's critical that you use any medications as prescribed. You must follow up periodically for eye exams. Some patients will require examination by an drama critic (physician quality review specialist). Should you develop eye pain or loss of vision, call the doctor or return immediately for further care. FOLLOW-UP CARE: If you have been referred to a physician for follow-up care, call the physician s office for an appointment as you were instructed or within the next two days. If you experience worsening or a significant change in your symptoms, notify the physician immediately or return to the Emergency Department at any time for re-evaluation. You have an appointment to see Dr. Blair at 1 PM today. Do not miss the appointment as it is very important that she see this quality review specialist. Referrals: PAIGE BLAIR MD [ACTIVE STAFF] - 04/07/17 1:00 pm
[2017-04-07 12:13] VITALS: BP 126/79
--- NOTE | 2017-04-07 16:46 | EKG REPORT ---
SEVERITY:- ABNORMAL ECG - SINUS TACHYCARDIA LEFT VENTRICULAR HYPERTROPHY : Confirmed by: Pennie Wilde MD 07-Apr-2017 16:45:35
== END 2017-04-07 12:13 | disposition home or self-care (01) ==
LOC: ER 09:56
DX: H57.10 Ocular pain, unspecified eye (principal); I10 Essential (primary) hypertension; J44.9 Chronic obstructive pulmonary disease, unspecified
CPT/HCPCS: 93005; 93010; 99283

== ENCOUNTER → 2017-04-22 | Outpatient (CLI) | payer OTHER | LOC: CCC 14:19 | DX: H15.003 Unspecified scleritis, bilateral (principal); D86.9 Sarcoidosis, unspecified | CPT/HCPCS: 36415; 82164 ==

== ENCOUNTER → 2017-04-27 | Outpatient (CLI) | payer MEDICAID, OTHER ==
--- NOTE | 2017-04-27 16:07 | RADIOLOGY REPORT (SQ) ---
EXAM DESCRIPTION: CHEST PA/LAT COMPLETED DATE/TIME: 04/27/2017 1:45 pm REASON FOR STUDY: PNEUMONIA COMPARISON: 04/04/2017 EXAM PARAMETERS: NUMBER OF VIEWS: two views TECHNIQUE: Digital Frontal and Lateral radiographic views of the chest acquired. RADIATION DOSE: NA LIMITATIONS: none FINDINGS: LUNGS AND PLEURA: No opacities, masses or pneumothorax. No pleural effusion. MEDIASTINUM AND HILAR STRUCTURES: No masses or contour abnormalities. HEART AND VASCULAR STRUCTURES: Heart normal size. No evidence for failure. BONES: No acute findings. HARDWARE: None in the chest. OTHER: No other significant finding. IMPRESSION: NO SIGNIFICANT RADIOGRAPHIC FINDING IN THE CHEST. TECHNICAL DOCUMENTATION: JOB ID: [id number] [employer]- All Rights Reserved
== END ==
LOC: RAD 13:29
DX: J18.8 Other pneumonia, unspecified organism (principal)
CPT/HCPCS: 71020

== ENCOUNTER 2017-07-21 20:32 | Emergency (ER) | payer MEDICAID ==
[2017-07-21 20:41] VITALS: BP 118/93
[2017-07-21] MEDS ORDERED: ALBUTEROL SULFATE 0.083% NEB 2.5 MG/3 ML AMPUL NEB ONE (21:36)
[2017-07-21] MEDS ORDERED: GUAIFENESIN/CODEINE PHOS 100-10 MG/ 5 ML UDC PO ONE (21:37)
--- NOTE | 2017-07-21 21:41 | ER Document Report ---
ED Flu Like - General Mode of Arrival: Ambulatory Information source: Patient TRAVEL OUTSIDE OF THE [place] IN LAST 30 DAYS: No - General Chief Complaint: Flu Symptoms Stated Complaint: FLU LIKE SYMPTOMS Time Seen by Provider: 07/21/17 21:36 Notes: Patient is a 56 year old female with a history of asthma presents to the emergency department complaining of multiple symptoms including body aches and headaches onset last night and a cough onset 2 days ago. Patients associated symptoms include rhinorrhea, clear/yellow sputum with cough, shortness of breath , diaphoresis, chills, and nausea. Patient denies chest pain, vomiting, or diarrhea. (LENNIE ROWLEY) - Related Data Allergies/Adverse Reactions: benzonatate [From [employer]] Allergy (Verified 04/07/17 10:11) NSAIDS (Non-Steroidal Anti-Inflamma Allergy (Verified 04/07/17 10:11) Past Medical History - General Information source: Patient - Social History Smoking Status: Never Smoker Frequency of alcohol use: None Drug Abuse: None Family History: Reviewed & Not Pertinent, COPD, Hypertension Patient has suicidal ideation: No Patient has homicidal ideation: No - Past Medical History Cardiac Medical History: Reports: Hx Hypertension Pulmonary Medical History: Reports: Hx Asthma - Aspirin associated asthma, Hx COPD, Hx Pneumonia Endocrine Medical History: Reports: Hx Diabetes Mellitus Type 2 - Immunizations Hx Diphtheria, Pertussis, Tetanus Vaccination: Yes Review of Systems - Review of Systems Constitutional: See HPI, Chills, Diaphoresis EENT: See HPI, Nose congestion, Nose discharge Cardiovascular: No symptoms reported Respiratory: See HPI, Cough, Short of breath, Sputum Gastrointestinal: No symptoms reported Genitourinary: No symptoms reported Female Genitourinary: No symptoms reported Musculoskeletal: See HPI Skin: No symptoms reported Hematologic/Lymphatic: No symptoms reported Neurological/Psychological: No symptoms reported -: Yes All other systems reviewed and negative Physical Exam - Vital signs Vitals: Temp Pulse Resp BP Pulse Ox 100.3 F 123 H 20 118/93 H 97 07/21/17 20:39 07/21/17 20:39 07/21/17 20:39 07/21/17 20:39 07/21/17 20:39 - Notes Notes: GENERAL: Alert, interacts well. EYES: Pupils equal, round, and reactive to light. Extraocular movements intact. ENT: Oral mucosa moist, tongue midline. Obvious nasal congestion. NECK: Full range of motion. Supple. Trachea midline. LUNGS: Diffuse expiratory wheezes. Rhonchi in left lower lobe. Appears short of breath. HEART: Tachycardic, no ectopy. No murmurs, gallops, or rubs. ABDOMEN: Soft, non-tender. Non-distended. Bowel sounds present in all 4 quadrants. EXTREMITIES: Moves all 4 extremities spontaneously. No edema, radial and dorsalis pedis pulses 2/4 bilaterally. No cyanosis. NEUROLOGICAL: Alert and oriented x3. Normal speech. [cranial nerves II through XII grossly intact]. Biceps and patellar DTRs 2+ bilaterally. PSYCH: Normal affect, normal mood. SKIN: Warm, dry, normal turgor. No rashes or lesions noted. (LENNIE ROWLEY) Course - Re-evaluation Re-evalutation: 07/21/17 22:47 Patient is influenza A positive, given the fact that she has a history of tachycardia, is wheezing now and is a diabetic I will treat her with Tamiflu. I am awaiting the radiologist read of the chest x-ray. Patient's wheezing has resolved with the breathing treatment, she will be given an inhaler to take home , also be given cough syrup. 07/21/17 22:51 Tachycardia explainable by the fever and the albuterol. Patient in no distress with the tachycardia. 07/21/17 23:03 Chest x-ray shows mild left basilar atelectasis, no signs of pneumonia. Patient is discharged. (EDVIN DEJESUS) - Vital Signs Vital signs: Temp Pulse Resp BP Pulse Ox 99.2 F 125 H 20 118/93 H 96 07/21/17 23:24 07/21/17 23:24 07/21/17 23:24 07/21/17 20:39 07/21/17 23:24 - EKG Interpretation by Me Additional EKG results interpreted by me: 07/21/17 22:51 EKG shows sinus tachycardia at a rate of 131 immediately after her breathing treatment, left axis deviation, normal intervals, no ST segment elevations, there is slight ST segment depression in V4, likely rate related per my interpretation. 07/21/17 23:39 (EDVIN DEJESUS) Discharge - Discharge Clinical Impression: Influenza, COPD with exacerbation, Tachycardia Condition: Stable Disposition: HOME, SELF-CARE Additional Instructions: Please use nasal saline rinses such as a NetiPot or NeilMed Sinus Rinses. You may also use acetaminophen (Tylenol) 1000 mg every 4-6 hours as needed for pain or fever. Please be aware that many medications contain acetaminophen, do not exceed a total of 1000 mg of acetaminophen every 6 hours. Use the guaifenesin for cough. Take the Tamiflu as the anti-influenza drug, it will help to make her symptoms go away sooner. I have prescribed Phenergan and Zofran for nausea. You may use Imodium [id number] for diarrhea. You Chest x-ray does not show pneumonia. Prescriptions: Codeine Phosphate/Guaifenesin [Guaifenesin Ac Cough Syrup] 5 ml PO Q4HP PRN # 120 liquid PRN Reason: Ondansetron [Zofran Odt 4 mg Tablet] 1 - 2 tab PO Q4H PRN #15 tab.rapdis PRN Reason: For Nausea/Vomiting Oseltamivir Phosphate [Tamiflu 75 mg Capsule] 75 mg PO BID #10 capsule Prednisone [Deltasone 20 mg Tablet] 3 tab PO DAILY 4 Days tablet Promethazine HCl [Phenergan 25 mg Tablet] 1 - 2 tab PO Q6H PRN #15 tablet PRN Reason: Forms: Smoking Cessation Education Referrals: SASKIA MORENO MD [ACTIVE STAFF] - Follow up in 3-5 days Scribe Attestation: 07/21/17 23:40 I personally performed the services described in the documentation, reviewed and edited the documentation which was dictated to the scribe in my presence, and it accurately records my words and actions. (EDVIN DEJESUS)
[2017-07-21 22:25] LABS: A TYPE INFLUENZA AG POSITIVE (NEGATIVE); B INFLUENZA AG NEGATIVE (NEGATIVE)
[2017-07-21] MEDS ORDERED: OSELTAMIVIR PHOSPHATE 75 MG CAPSULE PO ONE (22:49)
[2017-07-21] MEDS ORDERED: ACETAMINOPHEN 325 MG TABLET PO ONE (22:51)
[2017-07-21] MEDS ORDERED: PREDNISONE 20 MG TABLET PO ONE (22:52)
[2017-07-21] MEDS ORDERED: ALBUTEROL SULFATE HFA (90 MCG/PUFF) 8 GM MDI (1 MDI/ER DISP) IH ONE (22:52)
--- NOTE | 2017-07-21 23:01 | RADIOLOGY REPORT (SQ) ---
EXAM DESCRIPTION: CHEST PA/LAT COMPLETED DATE/TIME: 07/21/2017 10:35 pm REASON FOR STUDY: cough, wheeze, fever COMPARISON: Chest x-ray 04/27/2017. EXAM PARAMETERS: NUMBER OF VIEWS: two views TECHNIQUE: Digital Frontal and Lateral radiographic views of the chest acquired. RADIATION DOSE: NA LIMITATIONS: none FINDINGS: LUNGS AND PLEURA: Mild left basilar atelectasis. No pneumothorax or pleural effusion. MEDIASTINUM AND HILAR STRUCTURES: No masses or contour abnormalities. HEART AND VASCULAR STRUCTURES: Heart normal size. No evidence for failure. BONES: Multilevel degenerative changes in the spine. HARDWARE: None in the chest. IMPRESSION: Mild left basilar atelectasis. TECHNICAL DOCUMENTATION: JOB ID: [id number] 2010 [employer]- All Rights Reserved
--- NOTE | 2017-07-22 07:50 | EKG REPORT ---
SEVERITY:- ABNORMAL ECG - SINUS TACHYCARDIA CHARLES, CONSIDER BIATRIAL ABNORMALITIES PROBABLE LVH WITH SECONDARY REPOL ABNRM : Confirmed by: Raman Hernandez MD 22-Jul-2017 07:49:10
== END 2017-07-21 23:24 | disposition home or self-care (01) ==
LOC: ER 20:32
DX: J11.1 Influenza due to unidentified influenza virus with other respiratory manifestations (principal); J44.1 Chronic obstructive pulmonary disease with (acute) exacerbation; R00.0 Tachycardia, unspecified; M79.1 Myalgia; E11.9 Type 2 diabetes mellitus without complications; I10 Essential (primary) hypertension
CPT/HCPCS: 93005; 94640; 99284; 87804; 71046; 93010; J3490 ×3; J7512

== ENCOUNTER 2017-09-06 10:56 | Emergency (ER) | payer MEDICAID ==
[2017-09-06] MEDS ORDERED: IPRATROPIUM/ALBUTEROL 0.5-2.5 MG/3 ML AMPUL NEB ONE ×2 (11:52→13:20)
[2017-09-06] MEDS ORDERED: METHYLPREDNISOLONE INJ 125 MG/2 ML SDV IM ONE (11:52)
[2017-09-06] MEDS ORDERED: METHYLPREDNISOLONE INJ 125 MG/2 ML SDV IV ONE (11:57)
--- NOTE | 2017-09-06 11:59 | ER Document Report ---
ED General - General Chief Complaint: Productive Cough Stated Complaint: COUGH Time Seen by Provider: 09/06/17 11:49 Mode of Arrival: Ambulatory Information source: Patient Notes: Patient is a 56 yo female with PMHx of COPD/asthma/Type II DM ( controlled on metformin) who reports cough and congestion for the past week. She has home neb machine and inhaler at home which she states isn't helping, last dose was yesterday with minimal relief. Initial VS show O2 sats at 93% on RA with associated tachypnea at 24. She is speaking in full sentences. States she had the flu last month but it didn't require hospitalization. She does take steroids, prednisone 20 mg daily. Denies fever, chills, chest pain, neck pain/ stiffness, n/v/d, peripheral edema. TRAVEL OUTSIDE OF THE [place] IN LAST 30 DAYS: No - Related Data Allergies/Adverse Reactions: benzonatate [From [employer]] Allergy (Verified 04/07/17 10:11) NSAIDS (Non-Steroidal Anti-Inflamma Allergy (Verified 04/07/17 10:11) Past Medical History - General Information source: Patient - Social History Smoking Status: Former Smoker Chew tobacco use (# tins/day): No Frequency of alcohol use: None Drug Abuse: None Family History: Reviewed & Not Pertinent, COPD, Hypertension Patient has suicidal ideation: No Patient has homicidal ideation: No - Past Medical History Cardiac Medical History: Reports: Hx Hypertension Pulmonary Medical History: Reports: Hx Asthma - Aspirin associated asthma, Hx COPD, Hx Pneumonia Endocrine Medical History: Reports: Hx Diabetes Mellitus Type 2 Renal/ Medical History: Denies: Hx Peritoneal Dialysis Psychiatric Medical History: Denies: Hx Depression - Immunizations Hx Diphtheria, Pertussis, Tetanus Vaccination: Yes Review of Systems - Review of Systems Constitutional: See HPI EENT: No symptoms reported Cardiovascular: No symptoms reported Respiratory: See HPI Gastrointestinal: No symptoms reported Genitourinary: No symptoms reported Female Genitourinary: No symptoms reported Musculoskeletal: No symptoms reported Skin: No symptoms reported Hematologic/Lymphatic: No symptoms reported Neurological/Psychological: No symptoms reported Physical Exam - Vital signs Vitals: Temp Pulse Resp BP Pulse Ox 98.8 F 117 H 24 H 140/59 H 93 09/06/17 11:06 09/06/17 11:06 09/06/17 11:06 09/06/17 11:06 09/06/17 11:06 - Notes Notes: PHYSICAL EXAM: CONSTITUTIONAL: Alert and oriented, well-appearing, mild respiratory distress, O2 at 93% on RA with abdominal accessory muscle use but patient able to speak in full sentences without air hunger. HENT: Normocephalic, atraumatic. Ear canals without erythema or foreign body, TMs pearly jolly with good bony landmarks. Nares clear without erythema, septal hematoma or deviation, airway patent. Oropharynx clear without erythema, tonsilar exudate or malocclusion. Trachea midline. Uvula midline. Moist mucous membranes. EYES: Pupils equal round and reactive to light, EOM intact. Sclera anicteric, conjunctiva are normal. No entrapment. NECK: supple without lymphadenopathy. No midline tenderness or paraspinous muscle spasms. No step-offs or deformities. ROM intact. HEART: Regular rate and rhythm without murmurs. LUNGS: Expiratory wheezing bilaterally in all lobes. GI: Normactive bowel sounds. Nontender, non-distended. No organomegaly. no CVAT. EXTREMITIES: no bony tenderness, erythema, edema, ecchymosis or deformity. Normal range of motion, no pitting edema. No cyanosis. Cap Refill <3 seconds. NEURO: Cranial nerves grossly intact. Normal sensory/motor exams. PSYCH: Normal mood, normal affect. SKIN: Warm and dry. Normal turgor. No rashes or lesions noted. Course - Re-evaluation Re-evalutation: 09/06/17 11:59 Patient seen and examined. Patient has history of asthma, former smoker. Mild respiratory distress noted, O2 93% on RA, patient speaking in full sentences but having some difficulty breathing. Expiratory wheezing noted b/l on auscultation, Will order duoneb, IV solumedrol, cardiac monitoring, O2 via NC and continue to monitor. 09/06/17 12:22 Images and results reviewed - negative for opacity, infiltrate. Reviewed results with patient, will continue to monitor, awaiting lab results. 09/06/17 13:30 Awaiting lab results. Reassessed patient, O2 97-98% on RA, HR at 104 after first duoneb. Slight expiratory wheezing still present on auscultation, will give 2nd duoneb and reassess. 09/06/17 14:34 Reviewed labs - noted leukocytosis, patient is on daily dose of prednisone 20 mg which could account for leukocytosis, will give dose of rocephin IV. Reassessed patient - O2 sats 100% on RA with HR 104 after 2nd duoneb. She is still speaking in full sentences without difficulty. Wheezing has improved b/l on auscultation. Discussed with patient how she is feeling, states she is feeling much better than when she arrived and feels like she can go home. Will give steroid dose pack, PO antibiotics and strict return precautions. At this time, will discharge with return precautions and follow-up recommendations. Verbal discharge instructions given at the bedside and opportunity for questions given. Medication warnings reviewed. Patient is in agreement with this plan and has verbalized understanding of return precautions and the need for primary care follow-up in the next 24-72 hours. - Vital Signs Vital signs: Temp Pulse Resp BP Pulse Ox 98.8 F 117 H 24 H 140/59 H 93 09/06/17 11:06 09/06/17 11:06 09/06/17 11:06 09/06/17 11:06 09/06/17 11:06 - Laboratory Result Diagrams: 09/06/17 12:50 09/06/17 12:50 Laboratory results interpreted by me: 09/06/17 09/06/17 12:50 12:50 WBC 14.4 H MCV 77 L MCH 25.5 L RDW 14.8 H Seg Neutrophils % 81.4 H Lymphocytes % 12.5 L Absolute Neutrophils 11.7 H Glucose 195 H - Diagnostic Test Radiology reviewed: Image reviewed, Reports reviewed Discharge - Discharge Clinical Impression: Acute exacerbation of chronic obstructive pulmonary disease (COPD) Asthma exacerbation Qualifiers: Asthma severity: moderate Asthma persistence: persistent Qualified Code(s): J45.41 - Moderate persistent asthma with (acute) exacerbation Acute bronchitis Qualifiers: Bronchitis organism: unspecified organism Qualified Code(s): J20.9 - Acute bronchitis, unspecified Leukocytosis Qualifiers: Leukocytosis type: unspecified Qualified Code(s): D72.829 - Elevated white blood cell count, unspecified Condition: Stable Disposition: HOME, SELF-CARE Additional Instructions: BRONCHITIS: You have acute bronchitis. This disease is an infection or inflammation of the air passageways in your lungs. Symptoms usually include cough, low grade fever, shortness of breath, and wheezing. The cough usually persists for a couple of weeks. Most cases of bronchitis get better without antibiotics. We prescribe antibiotics when we believe bacteria are damaging your airways, or if there's high risk the bronchitis will worsen into pneumonia. Increase your fluid intake. A cool mist humidifier may make your lungs more comfortable. An expectorant (cough medicine that loosens phlegm) can help. If you smoke, STOP!!! Recovery from bronchitis can be somewhat slow, but you should see improvement within a day or two. Repeated episodes of bronchitis may result in lung damage -- for example, chronic bronchitis, recurrent pneumonias, or emphysema. Call the doctor if you develop increasing fever, shortness of breath, chest pain, bloody sputum, or otherwise worsen. If you have not improved at all after several days, contact the physician. BRONCHITIS WITH BRONCHOSPASM (WHEEZING): You have bronchitis with bronchospasm (wheezing). Sometimes people develop wheezing with a chest cold. This occurs either because of an underlying tendency toward asthma or because the virus itself irritates the bronchial tubes. This irritation causes cough, shortness of breath, and wheezing. Emergency treatment of bronchospasm may include adrenaline shots or bronchodilator aerosol. You may feel lightheaded and have a rapid pulse for an hour or two. Rest and get plenty of fluids. At home, we'll treat you with a bronchodilator inhaler. Corticosteroids may be required for some patients. Until you recover, avoid chemical fumes, dusts, pollens, and exercising in very cold or dry air. If you smoke, stop now! Most cases of bronchitis get better without antibiotics. We prescribe antibiotics when we believe bacteria are damaging your airways, or if there's high risk the bronchitis will worsen into pneumonia. Increase your fluid intake. A cool mist humidifier may make your lungs more comfortable. An expectorant (cough medicine that loosens phlegm) can help. Repeated episodes of bronchitis and bronchospasm may result in lung damage -- for example, chronic bronchitis, recurrent pneumonias, or emphysema. If you develop a fever, increased wheezing, chest pain, or severe shortness of breath, you should contact the doctor immediately. INHALED BRONCHODILATORS: You have received a treatment of and/or prescription for an inhaled bronchodilator -- a medication which stimulates the airways in the lung to dilate. This improves the flow of air in asthma, bronchitis, and emphysema. These medicines have some similarity to adrenaline, and can cause similar side effects: shakiness, racing heart, and a sense of nervousness. These side effects decrease with time. Contact your doctor if these side effects are severe. Do not over-use the medicine. Too-frequent use of the inhaler may make it ineffective. Call your doctor if the inhaler is not controlling your symptoms at the prescribed doses. STEROID MEDICATION: You have been given an injection of or oral medicine of the cortisone/ steroid class. This medication is used to control inflammation or allergy. Krystian t is usually only given for a short period of time, until the acute process subsides. There are usually no side effects from short-term use of cortisone-like medications. Some persons feel an increased sense of well-being and are not sleepy at bedtime. Long-term use of cortisone medications is best avoided, unless required for a severe condition. If your condition does not remit, or relapses after the course of corticosteroid medication, you should consult your physician. ANTIBIOTIC THERAPY: You have been given an antibiotic prescription. It's important that you take all the medication, unless instructed otherwise by your physician. Failure to complete the entire course can result in relapse of your condition. Common side effects of antibiotics include nausea, intestinal cramping, or diarrhea. Women may develop vaginal yeast infections, and babies can get yeast (thrush) in the mouth following the use of antibiotics. Contact your physician if you develop significant side effects from this medication. Allergy to this antibiotic can result in hives, wheezing, faintness, or itching. If symptoms of allergy occur, stop the medication and call your doctor. DOXYCYCLINE: Doxycycline (Vibramycin, Doryx) is an antibiotic of the tetracycline family. This type of drug is useful for infections of the respiratory tract and genital tract, and is sometimes used for intestinal infections. Unlike most tetracyclines, doxycycline can be taken with food. It is longer acting, and (usually) less prone to side effects than regular tetracycline. Tetracycline antibiotics can stain immature teeth and SHOULD NOT BE TAKEN BY CHILDREN, NURSING MOTHERS, OR WOMEN. Tetracyclines can make you more prone to sunburn. Abdominal cramping, nausea, and diarrhea are occasional side effects. Women may experience vaginal yeast infections. Call the doctor at once if you develop hives, itching, shortness of breath , or lightheadedness. USE OF ACETAMINOPHEN (Tylenol): Acetaminophen may be taken for pain relief or fever control. It's much safer than aspirin, offering a wider range of "safe" dosages. It is safe during . Some brand names are Tylenol, Panadol, Datril, Anacin 3, Tempra, and Liquiprin. Acetaminophen can be repeated every four hours. The following are maximum recommended dosages: >89 pounds or adults 650 mg to 900 mg Acetaminophen can be repeated every four hours. Maximum dose not to exceed 4000 mg a day. SMOKING: If you smoke, you should stop smoking. The tar and chemicals in cigarette smoke are harmful. Smoking has been shown to cause: emphysema chronic bronchitis lung cancer mouth and throat cancer stomach and pancreas cancer premature aging defects In addition, smoking increases ear and lung infections in children of smokers. FOLLOW-UP CARE: If you have been referred to a physician for follow-up care, call the physician s office for an appointment as you were instructed or within the next two days. If you experience worsening or a significant change in your symptoms, notify the physician immediately or return to the Emergency Department at any time for re-evaluation. Prescriptions: Albuterol Sulfate [Proair HFA Inhalation Aerosol 8.5 gm MDI] 2 puff IH Q4H PRN # 1 mdi PRN Reason: Doxycycline Hyclate 100 mg PO BID #14 capsule Prednisone [Deltasone 10 mg Tablet] 10 mg PO ASDIR PRN #21 tablet PRN Reason: Forms: Elevated Blood Pressure
--- NOTE | 2017-09-06 12:15 | RADIOLOGY REPORT (SQ) ---
EXAM DESCRIPTION: CHEST PA/LAT COMPLETED DATE/TIME: 09/06/2017 12:06 pm REASON FOR STUDY: cough, wheezing, hx of copd COMPARISON: 07/21/2017 EXAM PARAMETERS: NUMBER OF VIEWS: two views TECHNIQUE: Digital Frontal and Lateral radiographic views of the chest acquired. RADIATION DOSE: NA LIMITATIONS: none FINDINGS: LUNGS AND PLEURA: No opacities, masses or pneumothorax. No pleural effusion. MEDIASTINUM AND HILAR STRUCTURES: No masses or contour abnormalities. HEART AND VASCULAR STRUCTURES: Heart normal size. No evidence for failure. BONES: No acute findings. HARDWARE: None in the chest. OTHER: No other significant finding. IMPRESSION: NO SIGNIFICANT RADIOGRAPHIC FINDING IN THE CHEST. TECHNICAL DOCUMENTATION: JOB ID: [id number] [employer]- All Rights Reserved Reading location - IP/workstation name: [email or web address]
[2017-09-06 13:13] LABS: ABSOLUTE BASOPHILS # (AUTO) 0.2 10^3/uL (0.0-0.2); ABSOLUTE EOSINOPHILS # (AUTO) 0.1 10^3/uL (0.0-0.6); ABSOLUTE LYMPHOCYTES (AUTO) 1.8 10^3/uL (0.5-4.7); ABSOLUTE MONOCYTES (AUTO) 0.6 10^3/uL (0.1-1.4); ABSOLUTE NEUT (AUTO) 11.7 10^3/uL (1.7-8.2); BASOPHILS % (AUTO) 1.3 % (0-2); EOSINOPHILS % (AUTO) 0.7 % (0-6); HEMATOCRIT 37.6 % (36.0-47.0); HEMOGLOBIN 12.5 g/dL (12.0-15.5); LYMPHOCYTES % (AUTO) 12.5 % (13-45); MEAN CORPUSCULAR HEMOGLOBIN 25.5 pg (27.0-33.4); MEAN CORPUSCULAR HGB CONC 33.3 g/dL (32.0-36.0); MEAN CORPUSCULAR VOLUME 77 fl (80-97); MONOCYTES % (AUTO) 4.1 % (3-13); PLATELET COUNT 356 10^3/uL (150-450); RED CELL DISTRIBUTION WIDTH 14.8 % (11.5-14.0); SEGMENTED NEUTROPHILS % (AUTO) 81.4 % (42-78); TOTAL CELLS COUNTED % (AUTO) 100 %; WHITE BLOOD COUNT 14.4 10^3/uL (4.0-10.5)
[2017-09-06 13:25] LABS: ANION GAP 14 (5-19); BLOOD UREA NITROGEN 9 mg/dL (7-20); CALCIUM 9.9 mg/dL (8.4-10.2); CARBON DIOXIDE 25 mmol/L (22-30); CHLORIDE 103 mmol/L (98-107); GLUCOSE 195 mg/dL (75-110); POTASSIUM 4.2 mmol/L (3.6-5.0); SODIUM 141.6 mmol/L (137-145)
[2017-09-06] MEDS ORDERED: LIDOCAINE 1% INJ-PF (10 MG/ML) 30 ML SDV INJ ONE (14:33)
[2017-09-06] MEDS ORDERED: CEFTRIAXONE INJ 1000 MG VIAL IM ONE (14:33)
[2017-09-06 16:03] VITALS: BP 134/86
== END 2017-09-06 15:40 | disposition home or self-care (01) ==
LOC: ER 10:56
DX: J45.41 Moderate persistent asthma with (acute) exacerbation (principal); J20.9 Acute bronchitis, unspecified; D72.829 Elevated white blood cell count, unspecified; E11.9 Type 2 diabetes mellitus without complications; I10 Essential (primary) hypertension
CPT/HCPCS: 94640 ×2; 99284; 96372; 96374; 36415; 85025; 80048; 83880; 71046; J2930; J0696; J7620

== ENCOUNTER 2017-09-22 06:10 | Inpatient (IN) | payer MEDICAID ==
[2017-09-22] MEDS ORDERED: ACETAMINOPHEN 325 MG TABLET PO ONE (06:21)
[2017-09-22] MEDS ORDERED: CEFTRIAXONE 1 GM/D5W RTU 1 GM/50 ML RTUPB IV ONE (06:31)
--- NOTE | 2017-09-22 06:31 | ER Document Report ---
ED Respiratory Problem - General Chief Complaint: Breathing Difficulty Stated Complaint: COUGH Time Seen by Provider: 09/22/17 06:27 Notes: The patient is a 57-year-old female, past medical history COPD/asthma/Type II DM (controlled on metformin), presents with one day of worsening productive cough, shortness of breath, body aches and nausea. She was seen in the ER 2 weeks ago for a cough and felt better after breathing treatments and steroids. Patient takes 20 mg prednisone every day and does not wear oxygen. Patient received a flu shot earlier this year and already had one bout of flu that did not require hospitalization. She denies headache, neck stiffness, altered mental status, chest pain, leg swelling, hemoptysis, abdominal pain, vomiting, urinary symptoms or recent travel. TRAVEL OUTSIDE OF THE [place] IN LAST 30 DAYS: No - Related Data Allergies/Adverse Reactions: benzonatate [From [place]] Allergy (Verified 04/07/17 10:11) NSAIDS (Non-Steroidal Anti-Inflamma Allergy (Verified 04/07/17 10:11) Past Medical History - General Information source: Patient - Social History Smoking Status: Unknown if Ever Smoked Family History: Reviewed & Not Pertinent, COPD, Hypertension - Past Medical History Cardiac Medical History: Reports: Hx Hypertension Pulmonary Medical History: Reports: Hx Asthma - Aspirin associated asthma, Hx COPD, Hx Pneumonia Endocrine Medical History: Reports: Hx Diabetes Mellitus Type 2 Renal/ Medical History: Denies: Hx Peritoneal Dialysis Psychiatric Medical History: Denies: Hx Depression - Immunizations Hx Diphtheria, Pertussis, Tetanus Vaccination: Yes Review of Systems - Review of Systems Notes: REVIEW OF SYSTEMS: CONSTITUTIONAL: +fevers, -chills EENT: -eye pain, -difficulty swallowing, -nasal congestion CARDIOVASCULAR: -chest pain, -syncope. RESPIRATORY: +cough, +SOB GASTROINTESTINAL: -abdominal pain, +nausea, -vomiting, -diarrhea GENITOURINARY: -dysuria, -hematuria MUSCULOSKELETAL: -back pain, -neck pain SKIN: -rash or skin lesions. HEMATOLOGIC: -easy bruising or bleeding. LYMPHATIC: -swollen, enlarged glands. NEUROLOGICAL: -altered mental status or loss of consciousness, -headache, - neurologic symptoms PSYCHIATRIC: -anxiety, -depression. ALL OTHER SYSTEMS REVIEWED AND NEGATIVE. Physical Exam - Vital signs Vitals: Temp Pulse Resp BP Pulse Ox 101.4 F H 136 H 25 H 143/75 H 97 03/13/18 06:13 09/22/17 06:13 09/22/17 06:13 09/22/17 06:13 09/22/17 06:13 - Notes Notes: PHYSICAL EXAMINATION: GENERAL: In no acute distress. HEAD: Atraumatic, normocephalic. EYES: Pupils equal round and reactive to light, extraocular movements intact, sclera anicteric, conjunctiva are normal. ENT: nares patent, oropharynx clear without exudates. Moist mucous membranes. NECK: Normal range of motion, supple without lymphadenopathy LUNGS:Mild tachypnea. Diffuse wheezing in left lung. Crackles in left lower lung base. HEART:Tachycardia, regular rhythm. ABDOMEN: Soft, nontender, normoactive bowel sounds. No guarding, no rebound. No masses appreciated. EXTREMITIES: Normal range of motion, no pitting or edema. No cyanosis. NEUROLOGICAL: Cranial nerves grossly intact. Normal speech, normal gait. Normal sensory and motor exams. PSYCH: Normal mood, normal affect. SKIN: Warm, Dry, normal turgor, no rashes or lesions noted. Course - Re-evaluation Re-evalutation: Patient arrives tachycardic, tachypneic, febrile and satting 86% on room air. 4L nasal cannula increased her oxygenation to 96% and she does not wear oxygen at home. She has a left lower lobe pneumonia on CXR. No recent hospitalizations , so will begin CAP Abx. Unable to test for influenza, but with her history of COPD, body aches, fever, nausea and cough, will begin Tamiflu for suspected influenza since symptoms started about 12 hours ago. Patient's blood pressure is normal and lactate is only 2.1, so she is not in septic shock. Patient requires admission due to the hypoxia and sepsis. Her primary care physician is the [facility]. 09/22/17 08:48 Spoke to JUDITH Mcintosh, and will admit patient as Inpatient to [facility]. - Vital Signs Vital signs: Temp Pulse Resp BP Pulse Ox 101.4 F H 136 H 16 105/77 92 09/22/17 06:13 09/22/17 08:34 09/22/17 08:34 09/22/17 08:24 09/22/17 08:34 - Laboratory Result Diagrams: 09/22/17 06:45 09/22/17 06:45 Laboratory results interpreted by me: 09/22/17 09/22/17 09/22/17 06:45 06:45 06:45 WBC 12.3 H MCV 76 L MCH 25.8 L RDW 15.2 H Seg Neutrophils % 80.1 H Lymphocytes % 5.3 L Monocytes % 14.1 H Absolute Neutrophils 9.9 H Absolute Monocytes 1.7 H VBG pH 7.44 H Potassium 3.4 L Glucose 155 H Urine Glucose (UA) Urine Blood Ur Leukocyte Esterase 09/22/17 08:20 WBC MCV MCH RDW Seg Neutrophils % Lymphocytes % Monocytes % Absolute Neutrophils Absolute Monocytes VBG pH Potassium Glucose Urine Glucose (UA) 150 H Urine Blood SMALL H Ur Leukocyte Esterase TRACE H - Diagnostic Test Radiology reviewed: Image reviewed, Reports reviewed Radiology results interpreted by me: CXR: Small left basilar pneumonia/atelectasis. - EKG Interpretation by Me EKG shows normal: Sinus rhythm, [place], Intervals, QRS Complexes, ST-T Waves Rate: Tachycardia When compared to previous EKG there are: No significant change Discharge - Discharge Clinical Impression: Hypoxia, Hypokalemia, Acute exacerbation of chronic obstructive pulmonary disease (COPD) Pneumonia Qualifiers: Pneumonia type: due to unspecified organism Laterality: left Lung location: lower lobe of lung Qualified Code(s): J18.1 - Lobar pneumonia, unspecified organism Sepsis Qualifiers: Sepsis type: sepsis due to unspecified organism Qualified Code(s): A41.9 - Sepsis, unspecified organism Condition: Stable Disposition: ADMITTED INPATIENT Admitting Provider: Hospitalist [facility] Unit Admitted: Telemetry Referrals: REINALDO MCKEON MD [Primary Care Provider] - Follow up as needed
[2017-09-22] MEDS ORDERED: ONDANSETRON HCL INJ/PF 4 MG/2 ML SDV IV ONE (06:32)
[2017-09-22] MEDS ORDERED: IPRATROPIUM/ALBUTEROL 0.5-2.5 MG/3 ML AMPUL NEB ONE (06:43)
[2017-09-22] MEDS ORDERED: OSELTAMIVIR PHOSPHATE 75 MG CAPSULE PO ONE (06:47)
[2017-09-22] MEDS: NORMAL SALINE 1000 ML 1,000 ML IV PRN ×2 (06:59→08:19)
[2017-09-22] MEDS ORDERED: CEFTRIAXONE INJ 1000 MG VIAL IV ONE (07:06)
[2017-09-22 07:11] LABS: VENOUS BLOOD BASE EXCESS 1.4 mmol/L; VENOUS BLOOD HCO3 25.4 mmol/L (20-32); VENOUS BLOOD PCO2 38.1 mmHg (35-63); VENOUS BLOOD PH 7.44 (7.30-7.42)
[2017-09-22 07:17] LABS: ABSOLUTE LYMPHOCYTES (AUTO) 0.7 10^3/uL (0.5-4.7); ABSOLUTE MONOCYTES (AUTO) 1.7 10^3/uL (0.1-1.4); ABSOLUTE NEUT (AUTO) 9.9 10^3/uL (1.7-8.2); BASOPHILS % (AUTO) 0.2 % (0-2); EOSINOPHILS % (AUTO) 0.3 % (0-6); HEMATOCRIT 36.1 % (36.0-47.0); HEMOGLOBIN 12.2 g/dL (12.0-15.5); LYMPHOCYTES % (AUTO) 5.3 % (13-45); MEAN CORPUSCULAR HEMOGLOBIN 25.8 pg (27.0-33.4); MEAN CORPUSCULAR HGB CONC 33.8 g/dL (32.0-36.0); MEAN CORPUSCULAR VOLUME 76 fl (80-97); MONOCYTES % (AUTO) 14.1 % (3-13); PLATELET COUNT 305 10^3/uL (150-450); RED BLOOD COUNT 4.73 10^6/uL (3.72-5.28); RED CELL DISTRIBUTION WIDTH 15.2 % (11.5-14.0); SEGMENTED NEUTROPHILS % (AUTO) 80.1 % (42-78); TOTAL CELLS COUNTED % (AUTO) 100 %; WHITE BLOOD COUNT 12.3 10^3/uL (4.0-10.5)
[2017-09-22 07:23] LABS: ALANINE AMINOTRANSFERASE 38 U/L (9-52); ALBUMIN 4.1 g/dL (3.5-5.0); ALKALINE PHOSPHATASE 82 U/L (38-126); ANION GAP 13 (5-19); ASPARTATE AMINO TRANSFERASE 15 U/L (14-36); BILIRUBIN,DIRECT 0.1 mg/dL (0.0-0.4); BILIRUBIN,TOTAL 0.3 mg/dL (0.2-1.3); BLOOD UREA NITROGEN 11 mg/dL (7-20); CALCIUM 9.8 mg/dL (8.4-10.2); CARBON DIOXIDE 28 mmol/L (22-30); CHLORIDE 104 mmol/L (98-107); CREATINE KINASE 49 U/L (30-135); GLUCOSE 155 mg/dL (75-110); POTASSIUM 3.4 mmol/L (3.6-5.0); SODIUM 144.5 mmol/L (137-145); TOTAL PROTEIN 6.4 g/dL (6.3-8.2)
--- NOTE | 2017-09-22 07:27 | RADIOLOGY REPORT (SQ) ---
EXAM DESCRIPTION: CHEST SINGLE VIEW CLINICAL HISTORY: 57 years Female, FEVER COMPARISON: 2.25.18. NUMBER OF VIEWS/TECHNIQUE: 1/AP LIMITATIONS: None. FINDINGS: Small patchiness and subsegmental atelectasis-scar in the left lung base. Normal cardiac silhouette. Intact bony thorax. IMPRESSION: Small left basilar pneumonia/atelectasis.
[2017-09-22] MEDS ORDERED: AZITHROMYCIN INJ 500 MG VIAL IV ONE (07:32)
--- NOTE | 2017-09-22 07:33 | EKG REPORT ---
SEVERITY:- OTHERWISE NORMAL ECG - SINUS TACHYCARDIA : Confirmed by: Raman Hernandez MD 22-Sep-2017 07:32:13
[2017-09-22 07:57] LABS: INTERNATIONAL RATION (INR) 0.89; PROTHROMBIN TIME 12.7 SEC (11.4-15.4)
[2017-09-22] MEDS ORDERED: METHYLPREDNISOLONE INJ 125 MG/2 ML SDV IV ONE (08:41)
[2017-09-22] MEDS ORDERED: POTASSIUM CHLORIDE 10 MEQ TABLET.SA PO ONE ×2 (08:41→13:00)
[2017-09-22 08:46] LABS: APPEARANCE,URINE CLEAR; BILIRUBIN,URINE NEGATIVE (NEGATIVE); COLOR,URINE STRAW; GLUCOSE, URINE 150 mg/dL (NEGATIVE); KETONES,URINE NEGATIVE (NEGATIVE); LEUKOCYTE ESTERASE,URINE TRACE (NEGATIVE); NITRITE,URINE NEGATIVE (NEGATIVE); PROTEIN,URINE NEGATIVE (NEGATIVE); URINE SPECIFIC GRAVITY 1.008; UROBILINOGEN,URINE NEGATIVE mg/dL (<2.0)
[2017-09-22] MEDS ORDERED: TIOTROPIUM BROMIDE DPI 5 CAP/KIT (18 MCG/CAP) IH SCH (10:00)
[2017-09-22] MEDS ORDERED: GUAIFENESIN SYRP 200 MG/10 ML UDC PO PRN (12:05)
[2017-09-22] MEDS ORDERED: VANCOMYCIN HCL 0 MG in DEXTROSE 5%-WATER 250 ML IV NR (12:15)
[2017-09-22] MEDS ORDERED: INSULIN LISPRO 100 UNIT/ML 3 ML VIAL SUBCUT PRN (12:20)
[2017-09-22] MEDS ORDERED: GLUCAGON,HUMAN RECOMB 1 MG INJ IM PRN (12:20)
[2017-09-22] MEDS ORDERED: DEXTROSE 40% GEL 15 GM TUBE PO PRN ×2 (12:20)
[2017-09-22] MEDS ORDERED: DEXTROSE 50%-WATER 25 GM/50 ML DISP.SYRIN IV PRN ×2 (12:20)
--- NOTE | 2017-09-22 12:53 | PDOC H&P ---
History of Present Illness Admission Date/PCP: 09/22/17 11:09 [facility] [employer]: Dr. Patel Patient complains of: Shortness of breath History of Present Illness: The patient is an extremely pleasant 57-year-old -[place] female with a past medical history significant for COPD and type 2 diabetes. She follows with Dr. Patel as an outpatient. For the past year she has been on treatment with prednisone at 10 mg a day. A couple of months ago her dose was increased to 20 mg a day which she takes religiously. She has been steroid-dependent but has not been requiring oxygen. She states that she was hospitalized with the flu earlier this year. The patient presents to the emergency room with a 2 week history of cough and worsening congestion. She states that 2 days ago she began to run high fevers. She states she has a cough but is having a difficult time bringing up any sputum. She is significantly short of breath. In the emergency room she was found to be hypoxic and currently her oxygen saturations are stable and 4 L of oxygen. Past Medical History Cardiac Medical History: Reports: Hypertension Pulmonary Medical History: Reports: Asthma - Aspirin associated asthma, Chronic Obstructive Pulmonary Disease (COPD), Pneumonia EENT Medical History: Reports: None Endocrine Medical History: Reports: Diabetes Mellitus Type 2 Malignancy Medical History: Reports: None GI Medical History: Reports: None Musculoskeltal Medical History: Reports: None Skin Medical History: Reports: None Psychiatric Medical History: Denies: Depression Traumatic Medical History: Reports: None Hematology: Reports: None Infectious Medical History: Reports: None Past Surgical History Past Surgical History: Reports: None Social History Information Source: Patient Lives with: Spouse/Significant other Smoking Status: Former Smoker Frequency of Alcohol Use: None Hx Recreational Drug Use: No Drugs: None Hx Prescription Drug Abuse: No Family History Family History: Reviewed & Not Pertinent, COPD, Hypertension Parental Family History Reviewed: Yes Children Family History Reviewed: Yes Sibling(s) Family History Reviewed.: Yes Medication/Allergy Home Medications: Amlodipine Besylate [Norvasc 5 mg Tablet] 5 mg PO DAILY 03/28/17 Prednisone [Deltasone 20 mg Tablet] 20 mg PO DAILY 03/28/17 Budesonide/Formoterol Fumarate [Symbicort HFA 160-4.5 mcg Inhaler 6 gm] 2 puff IH Q12 #1 inhaler 04/06/17 Diltiazem HCl [Cardizem 60 mg Tablet] 60 mg PO Q6 tablet 04/06/17 Fluticasone Propionate [Flonase Nasal Rodney 50 Mcg/Rodney 16 gm] 2 spray NASL Q12 spray.pump 04/06/17 Guaifenesin [Mucinex Sr 600 mg Tablet.sa] 1,200 mg PO Q12 tablet.sa 04/06/17 Ipratropium/Albuterol Sulfate [Duoneb 3 ml Ampul] 3 ml NEB [id number] PRN #14 vial.neb 04/06/17 Levofloxacin [Levaquin 750 mg Tablet] 750 mg PO QHS #7 tablet 04/06/17 Montelukast Sodium [Singulair 10 mg Tablet] 10 mg PO QHS tablet 04/06/17 Prednisone [Deltasone 20 mg Tablet] 80 mg PO DAILY #36 tablet 04/06/17 Tiotropium [place] [Spiriva Handihaler 18 mcg/dose (30 Dose)] 1 cap IH DAILY # 30 capsule 04/06/17 Codeine Phosphate/Guaifenesin [Guaifenesin Ac Cough Syrup] 5 ml PO Q4HP PRN # 120 liquid 07/21/17 Ondansetron [Zofran Odt 4 mg Tablet] 1 - 2 tab PO Q4H PRN #15 tab.rapdis Oseltamivir Phosphate [Tamiflu 75 mg Capsule] 75 mg PO BID #10 capsule 07/21/17 Prednisone [Deltasone 20 mg Tablet] 3 tab PO DAILY 4 Days tablet 07/21/17 Promethazine HCl [Phenergan 25 mg Tablet] 1 - 2 tab PO Q6H PRN #15 tablet Albuterol Sulfate [Proair HFA Inhalation Aerosol 8.5 gm MDI] 2 puff IH Q4H PRN # 1 mdi 09/06/17 Doxycycline Hyclate 100 mg PO BID #14 capsule 09/06/17 Prednisone [Deltasone 10 mg Tablet] 10 mg PO ASDIR PRN #21 tablet 09/06/17 Allergies/Adverse Reactions: benzonatate [From [place]] Allergy (Verified 04/07/17 10:11) NSAIDS (Non-Steroidal Anti-Inflamma Allergy (Verified 04/07/17 10:11) Review of Systems Constitutional: PRESENT: anorexia, chills, fever(s). ABSENT: headache(s), night sweats Eyes: ABSENT: visual disturbances Ears: ABSENT: hearing changes Nose, Mouth, and Throat: ABSENT: headache(s), mouth pain, sore throat Cardiovascular: PRESENT: dyspnea on exertion, palpitations. ABSENT: chest pain , orthropnea Respiratory: PRESENT: cough, dyspnea. ABSENT: sputum Gastrointestinal: ABSENT: abdominal pain, constipation, diarrhea, hematemesis, hematochezia, nausea, vomiting Neurological: ABSENT: abnormal gait, abnormal speech, confusion, dizziness, focal weakness, syncope Psychiatric: ABSENT: anxiety, depression, homidical ideation, suicidal ideation Endocrine: ABSENT: cold intolerance, heat intolerance, polydipsia, polyuria Hematologic/Lymphatic: ABSENT: easy bleeding, easy bruising Physical Exam Vital Signs: Temp Pulse Resp BP Pulse Ox 101.4 F H 136 H 26 H 105/74 95 09/22/17 06:13 09/22/17 08:34 09/22/17 11:00 09/22/17 10:02 09/22/17 11:00 General appearance: PRESENT: no acute distress, other - She is receiving oxygen via nasal cannula Head exam: PRESENT: atraumatic, normocephalic Eye exam: PRESENT: conjunctiva pink, EOMI, PERRLA. ABSENT: scleral icterus Ear exam: PRESENT: normal external ear exam Mouth exam: PRESENT: moist, tongue midline Throat exam: ABSENT: post pharyngeal erythema, other Neck exam: ABSENT: carotid bruit, JVD, lymphadenopathy, thyromegaly Respiratory exam: PRESENT: rhonchi, other - He has course breath sounds throughout all lung preciado Cardiovascular exam: PRESENT: +S1, +S2, tachycardia Pulses: PRESENT: normal dorsalis pedis pul Vascular exam: PRESENT: normal capillary refill GI/Abdominal exam: PRESENT: normal bowel sounds, soft. ABSENT: distended, guarding, mass, organolmegaly, rebound, tenderness Rectal exam: PRESENT: deferred Extremities exam: PRESENT: full ROM. ABSENT: calf tenderness, clubbing, pedal edema Neurological exam: PRESENT: alert, awake, oriented to person, oriented to place , oriented to time, oriented to situation, CN II-XII grossly intact. ABSENT: motor sensory deficit Psychiatric exam: PRESENT: appropriate affect, normal mood. ABSENT: homicidal ideation, suicidal ideation Skin exam: PRESENT: dry, intact, warm. ABSENT: cyanosis, rash Results Impressions: Chest X-Ray 09/22/17 06:21 IMPRESSION: Small left basilar pneumonia/atelectasis. Assessment & Plan - Diagnosis (1) Acute respiratory failure with hypoxemia Is this a current diagnosis for this admission?: Yes Plan: Secondary to underlying COPD exacerbation as well as pneumonia. She will be started on scheduled breathing treatments. Oxygen support as needed. Currently she is requiring 4 L. Therapy will be outlined below (2) Sepsis Qualifiers: Sepsis type: sepsis due to unspecified organism Qualified Code(s): A41.9 - Sepsis, unspecified organism Is this a current diagnosis for this admission?: Yes Plan: Present on admission. The patient has leukocytosis, tachycardia, tachypnea, fever and evidence of infection. His her sepsis is secondary to underlying pneumonia. Therapy will be outlined below. (3) Right lower lobe pneumonia Qualifiers: Aspiration pneumonia type: unspecified Is this a current diagnosis for this admission?: Yes Plan: Concerns for gram negatives and MRSA. The patient is significantly immunosuppressed due to long-term fairly high-dose prednisone usage. I am going to start her on IV vancomycin, meropenem and Levaquin. This will be the first full day of treatment. (4) COPD exacerbation Is this a current diagnosis for this admission?: Yes Plan: I am going to hold her p.o. prednisone. She will be placed on Solu-Medrol 40 mg IV every 8 hours. Continue aggressive breathing treatments and her usual bronchodilators. (5) Diabetes Qualifiers: Diabetes mellitus type: type 2 Is this a current diagnosis for this admission?: Yes Plan: I am going to hold the patient's metformin for now. She will be started on sliding scale insulin here in the hospital. She likely will develop hyperglycemia due to steroids. (6) Hypokalemia Is this a current diagnosis for this admission?: Yes Plan: This will be repleted. She will have a chemistry panel checked in the morning. - Time Time Spent: 50 to 70 Minutes - Inpatient Certification Medical Necessity: Need Close Monitoring Due to Risk of Patient Decompensation, Need for IV Antibiotics, Other - At this point I fully expect the patient's hospitalization to span greater than 2 midnights. This patient is significantly immunosuppressed. She has a septic picture with underlying pneumonia.
[2017-09-22] MEDS ORDERED: LEVOFLOXACIN 750 MG/D5W RTU 750 MG/150 ML RTUPB IV ONE (13:00)
[2017-09-22] MEDS ORDERED: TIOTROPIUM BROMIDE DPI 5 CAP/KIT (18 MCG/CAP) IH ONE (14:00)
[2017-09-22] MEDS ORDERED: MEROPENEM 1 GM in NORMAL SALINE 100 ML IV SCH (14:00)
[2017-09-22] MEDS: METHYLPREDNISOLONE INJ 40 MG/1 ML SDV IV SCH ×2 (14:02→21:27)
[2017-09-22] MEDS: VANCOMYCIN HCL 1,250 MG in DEXTROSE 5%-WATER 250 ML IV SCH (19:45)
[2017-09-22] MEDS: GUAIFENESIN 600 MG TABLET.SA PO SCH (21:27)
[2017-09-22] MEDS: MONTELUKAST SODIUM 10 MG TABLET PO SCH (21:27)
[2017-09-22] MEDS: MEROPENEM 1 GM in NORMAL SALINE 100 ML IV SCH (21:27)
[2017-09-22] MEDS: BUDESONIDE/FORMOTEROL 160-4.5 MCG 60 PUFF/6 GM MDI IH SCH (21:28)
[2017-09-23] MEDS: VANCOMYCIN HCL 1,250 MG in DEXTROSE 5%-WATER 250 ML IV SCH ×2 (05:39→18:55)
[2017-09-23] MEDS: MEROPENEM 1 GM in NORMAL SALINE 100 ML IV SCH ×3 (05:39→21:25)
[2017-09-23] MEDS: METHYLPREDNISOLONE INJ 40 MG/1 ML SDV IV SCH ×3 (05:39→21:25)
[2017-09-23 06:23] LABS: ABSOLUTE LYMPHOCYTES (AUTO) 0.7 10^3/uL (0.5-4.7); ABSOLUTE MONOCYTES (AUTO) 0.2 10^3/uL (0.1-1.4); ABSOLUTE NEUT (AUTO) 6.4 10^3/uL (1.7-8.2); HEMATOCRIT 35.4 % (36.0-47.0); HEMOGLOBIN 11.8 g/dL (12.0-15.5); LYMPHOCYTES % (AUTO) 9.2 % (13-45); MEAN CORPUSCULAR HEMOGLOBIN 25.9 pg (27.0-33.4); MEAN CORPUSCULAR HGB CONC 33.4 g/dL (32.0-36.0); MEAN CORPUSCULAR VOLUME 78 fl (80-97); MONOCYTES % (AUTO) 3.2 % (3-13); PLATELET COUNT 270 10^3/uL (150-450); RED BLOOD COUNT 4.55 10^6/uL (3.72-5.28); RED CELL DISTRIBUTION WIDTH 15.5 % (11.5-14.0); SEGMENTED NEUTROPHILS % (AUTO) 87.6 % (42-78); TOTAL CELLS COUNTED % (AUTO) 100 %; WHITE BLOOD COUNT 7.3 10^3/uL (4.0-10.5)
[2017-09-23 06:47] LABS: ANION GAP 11 (5-19); BLOOD UREA NITROGEN 11 mg/dL (7-20); CALCIUM 9.6 mg/dL (8.4-10.2); CARBON DIOXIDE 26 mmol/L (22-30); CHLORIDE 105 mmol/L (98-107); GLUCOSE 201 mg/dL (75-110); SODIUM 142.1 mmol/L (137-145)
[2017-09-23 06:57] LABS: POTASSIUM 4.4 mmol/L (3.6-5.0)
[2017-09-23] MEDS: GUAIFENESIN 600 MG TABLET.SA PO SCH ×2 (09:39→21:25)
[2017-09-23] MEDS: ENOXAPARIN SODIUM INJ 40 MG/0.4 ML DISP.SYRIN SUBCUT SCH (09:40)
[2017-09-23] MEDS: BUDESONIDE/FORMOTEROL 160-4.5 MCG 60 PUFF/6 GM MDI IH SCH ×2 (09:41→21:24)
[2017-09-23] MEDS: TIOTROPIUM BROMIDE DPI 5 CAP/KIT (18 MCG/CAP) IH SCH (09:41)
[2017-09-23] MEDS ORDERED: PREDNISONE 20 MG TABLET PO SCH (10:00)
[2017-09-23] MEDS: IPRATROPIUM/ALBUTEROL 0.5-2.5 MG/3 ML AMPUL NEB PRN (10:57)
[2017-09-23] MEDS: LEVOFLOXACIN 750 MG/D5W RTU 750 MG/150 ML RTUPB IV SCH (12:53)
--- NOTE | 2017-09-23 14:52 | PDOC PROGRESS REPORT ---
Subjective Progress Note for:: 09/23/17 Subjective:: The patient is resting comfortably in her bed. She states that she is feeling much better than when she came to the hospital yesterday. She is still requiring oxygen therapy and she is still having cough with bronchospasm. She feels like the congestion in her chest is breaking up. She denies fever or shaking chills. No chest pain or heart palpitations. No nausea vomiting or diarrhea. No dysuria, frequency or hematuria. Reason For Visit: PNEUMONIA Physical Exam Vital Signs: Temp Pulse Resp BP Pulse Ox 97.9 F 102 H 16 136/80 H 100 09/23/17 12:08 09/23/17 12:08 09/23/17 12:08 09/23/17 12:08 09/23/17 12:08 Pulse Oximeter Continuous Start: 09/22/17 12: 05 Freq: RTQ4 Status: Active Document 09/23/17 11:12 [facility] (Rec: 09/23/17 11:13 [facility] [email or web address]) Pulse Oximetry Assessment Oxygen Saturation (92-100) 97 Oxygen Flow Rate (L/min) 2 Oxygen Delivery Method Nasal Cannula Equipment Usage Equipment in Use Continuous SpO2 Machine # [id number] Intake & Output 09/22/17 09/23/17 09/24/17 06:59 06:59 06:59 Intake Total 437 Balance 437 Weight 78.1 kg General appearance: PRESENT: no acute distress, well-developed, well-nourished, other - She is receiving oxygen via nasal cannula Head exam: PRESENT: atraumatic, normocephalic Mouth exam: PRESENT: moist, tongue midline Respiratory exam: PRESENT: rhonchi, wheezes, other - She has coarse breath sounds and end expiratory wheezing throughout all lung preciado.. ABSENT: rales Cardiovascular exam: PRESENT: tachycardia. ABSENT: diastolic murmur, rubs, systolic murmur GI/Abdominal exam: PRESENT: normal bowel sounds, soft. ABSENT: distended, guarding, mass, organolmegaly, rebound, tenderness Rectal exam: PRESENT: deferred Extremities exam: PRESENT: full ROM. ABSENT: calf tenderness, clubbing, pedal edema Musculoskeletal exam: PRESENT: ambulatory Neurological exam: PRESENT: alert, awake, oriented to person, oriented to place , oriented to time, oriented to situation, CN II-XII grossly intact. ABSENT: motor sensory deficit Psychiatric exam: PRESENT: appropriate affect, normal mood. ABSENT: homicidal ideation, suicidal ideation Skin exam: PRESENT: dry, intact, warm. ABSENT: cyanosis, rash Results Laboratory Results: 09/23/17 05:18 09/23/17 05:18 09/23/17 09/23/17 05:18 05:18 WBC 7.3 RBC 4.55 Hgb 11.8 L Hct 35.4 L MCV 78 L MCH 25.9 L MCHC 33.4 RDW 15.5 H Plt Count 270 Seg Neutrophils % 87.6 H Lymphocytes % 9.2 L Monocytes % 3.2 Eosinophils % 0.0 Basophils % 0.0 Absolute Neutrophils 6.4 Absolute Lymphocytes 0.7 Absolute Monocytes 0.2 Absolute Eosinophils 0.0 Absolute Basophils 0.0 Sodium 142.1 Potassium 4.4 D Chloride 105 Carbon Dioxide 26 Anion Gap 11 BUN 11 Creatinine 0.56 Est GFR ( Amer) > 60 Est GFR (Non-Af Amer) > 60 Glucose 201 H Calcium 9.6 09/23/17 05:18 NT-Pro-B Natriuret Pep 60 Impressions: Chest X-Ray 09/22/17 06:21 IMPRESSION: Small left basilar pneumonia/atelectasis. Assessment & Plan - Diagnosis (1) Acute respiratory failure with hypoxemia Is this a current diagnosis for this admission?: Yes Plan: Secondary to underlying COPD exacerbation as well as pneumonia. Continue scheduled breathing treatments. Oxygen support as needed. Currently she is requiring 3 L of oxygen which is an improvement since yesterday. She was not oxygen dependent prior to this hospitalization. Therapy will be outlined below (2) Sepsis Qualifiers: Sepsis type: sepsis due to unspecified organism Qualified Code(s): A41.9 - Sepsis, unspecified organism Is this a current diagnosis for this admission?: Yes Plan: Present on admission. The patient has leukocytosis, tachycardia, tachypnea, fever and evidence of infection. His her sepsis is secondary to underlying pneumonia. She is improving and her sepsis symptoms are resolving. (3) Right lower lobe pneumonia Qualifiers: Aspiration pneumonia type: unspecified Is this a current diagnosis for this admission?: Yes Plan: Concerns for gram negatives and MRSA. The patient is significantly immunosuppressed due to long-term fairly high-dose prednisone usage. I am going to start her on IV vancomycin, meropenem and Levaquin. This is day #2 of treatment. (4) COPD exacerbation Is this a current diagnosis for this admission?: Yes Plan: I am going to hold her p.o. prednisone. Continue Solu-Medrol but I will decrease her dose to 40 mg every 12 hours. Continue aggressive breathing treatments and her usual bronchodilators. (5) Diabetes Qualifiers: Diabetes mellitus type: type 2 Is this a current diagnosis for this admission?: Yes Plan: Continue to hold the patient's metformin. She will continue sliding scale insulin here in the hospital. (6) Hypokalemia Is this a current diagnosis for this admission?: Yes Plan: Repleted and resolved - Time Time Spent with patient: 15-24 minutes - Inpatient Certification Medical Necessity: Need for IV Antibiotics, Other - Inpatient hospitalization remains necessary. The patient is immunosuppressed from chronic prednisone treatment. She has pneumonia requiring parenteral antibiotics as well as a COPD exacerbation. Timing of disposition will be determined by her clinical course
--- NOTE | 2017-09-23 15:04 | Progress Note ---
Provider Note Provider Note: ID Consult Note Asked to review patient's chart by Pharmacy. Ms Hong is a 57 yo female with pmh including COPD, asthma, DM and chronic prednisone use of 20 mg daily. She was diagnosed with Influenza A earlier this year in July 2017. She presented on 09/22 with SOB, fever to 101.4 F, and cough. She was found to be hypoxic and required supplemental oxygen by nasal cannula. Her initial WBC count was 12.3. It is currently 7.3. Her BCx are negative x 24h. She has been on vancomycin, meropenem, and levofloxacin empirically for pneumonia. Her CXR on presentation was read as showing L basilar atelectasis/pneumonia. I personally reviewed her chest x-ray and prior chest x-rays, which do not look markedly different. Impression/Recommendations Suspicious for a viral syndrome. Check for influenza and RSV. If blood cultures remain negative, consider stopping antibiotics. Chris Horne MD pager [phone]
[2017-09-23] MEDS ORDERED: METFORMIN HCL 500 MG TABLET PO ONE (20:15)
[2017-09-23] MEDS: MONTELUKAST SODIUM 10 MG TABLET PO SCH (21:25)
[2017-09-24] MEDS: METHYLPREDNISOLONE INJ 40 MG/1 ML SDV IV SCH ×2 (06:10→13:10)
[2017-09-24] MEDS: VANCOMYCIN HCL 1,250 MG in DEXTROSE 5%-WATER 250 ML IV SCH (06:10)
[2017-09-24] MEDS: MEROPENEM 1 GM in NORMAL SALINE 100 ML IV SCH ×3 (06:11→23:10)
[2017-09-24 06:28] LABS: ABSOLUTE LYMPHOCYTES (AUTO) 0.7 10^3/uL (0.5-4.7); ABSOLUTE NEUT (AUTO) 8.4 10^3/uL (1.7-8.2); BASOPHILS % (AUTO) 0.1 % (0-2); HEMATOCRIT 36.4 % (36.0-47.0); LYMPHOCYTES % (AUTO) 7.2 % (13-45); MEAN CORPUSCULAR HEMOGLOBIN 25.6 pg (27.0-33.4); MEAN CORPUSCULAR VOLUME 78 fl (80-97); MONOCYTES % (AUTO) 10.1 % (3-13); PLATELET COUNT 295 10^3/uL (150-450); RED CELL DISTRIBUTION WIDTH 14.9 % (11.5-14.0); SEGMENTED NEUTROPHILS % (AUTO) 82.6 % (42-78); TOTAL CELLS COUNTED % (AUTO) 100 %; WHITE BLOOD COUNT 10.1 10^3/uL (4.0-10.5)
[2017-09-24 06:55] LABS: ANION GAP 9 (5-19); BLOOD UREA NITROGEN 15 mg/dL (7-20); CALCIUM 9.9 mg/dL (8.4-10.2); CARBON DIOXIDE 31 mmol/L (22-30); CHLORIDE 103 mmol/L (98-107); GLUCOSE 180 mg/dL (75-110); POTASSIUM 3.9 mmol/L (3.6-5.0); SODIUM 143.4 mmol/L (137-145)
[2017-09-24 07:14] LABS: VANCOMYCIN,TROUGH 8.4 ug/mL (5.0-20.0)
[2017-09-24] MEDS: METFORMIN HCL 500 MG TABLET PO SCH ×2 (07:54→16:38)
[2017-09-24] MEDS: GUAIFENESIN 600 MG TABLET.SA PO SCH ×2 (09:33→23:09)
[2017-09-24] MEDS: BUDESONIDE/FORMOTEROL 160-4.5 MCG 60 PUFF/6 GM MDI IH SCH ×2 (09:33→23:10)
[2017-09-24] MEDS: TIOTROPIUM BROMIDE DPI 5 CAP/KIT (18 MCG/CAP) IH SCH (09:34)
[2017-09-24] MEDS: ENOXAPARIN SODIUM INJ 40 MG/0.4 ML DISP.SYRIN SUBCUT SCH (09:37)
[2017-09-24] MEDS: LEVOFLOXACIN 750 MG/D5W RTU 750 MG/150 ML RTUPB IV SCH (11:30)
[2017-09-24] MEDS: VANCOMYCIN HCL 1,000 MG in DEXTROSE 5%-WATER 250 ML IV SCH ×2 (13:55→23:10)
--- NOTE | 2017-09-24 14:59 | PDOC PROGRESS REPORT ---
Subjective Progress Note for:: 09/24/17 Subjective:: The patient is an extremely pleasant 57-year-old -[place] female with a past medical history significant for COPD and type 2 diabetes. She follows with Dr[address] Patel as an outpatient. For the past year she has been on treatment with prednisone at 10 mg a day. A couple of months ago her dose was increased to 20 mg a day which she takes religiously. She has been steroid-dependent but has not been requiring oxygen. She states that she was hospitalized with the flu earlier this year. She states that she never quite bounced back from getting the flu. She presented to the emergency room with a 2 day history of worsening shortness of breath and cough. She also began to develop fever. In the emergency room she was found to be quite hypoxic. She had a fever over 101 and she was referred for admission. At the time of her admission she states that the way she is feeling nothing like she did when she had the flu. She states that she did not have any body aches. She had some chest wall discomfort from frequent coughing. She felt like her heart was racing at times. She has a headache and feels febrile with chills shaking chills. Unfortunately we did not have the ability to check her for the flu in the emergency room but I did not have a high suspicion of the flu at the time of admission. I was concerned that she is chronically immunosuppressed due to her fairly high-dose steroid therapy she has been on for the past year. She was found to be acutely wheezing and it was felt that she was having a COPD exacerbation as well. Due to her immunosuppressed state she was placed on broad -spectrum IV antibiotics and steroids. Over the past couple of days the patient has improved. Her oxygen requirements are improving although she still is requiring oxygen at 2 L. Her fever and chills have resolved. Her leukocytosis is resolved as well. She states her appetite is improving. She has had no nausea, vomiting or diarrhea. No dysuria, frequency or hematuria. Reason For Visit: PNEUMONIA Physical Exam Vital Signs: Temp Pulse Resp BP Pulse Ox 98.5 F 103 H 16 141/79 H 96 09/24/17 11:39 09/24/17 14:00 09/24/17 11:39 09/24/17 11:39 09/24/17 11:56 Pulse Oximeter Continuous Start: 09/22/17 12: 05 Freq: RTQ4 Status: Active Document 09/24/17 11:56 TPO (Rec: 09/24/17 11:56 TPO [email or web address]) Pulse Oximetry Assessment Oxygen Saturation (92-100) 96 Oxygen Flow Rate (L/min) 2 Oxygen Delivery Method Nasal Cannula Fraction of Inspired Oxygen (FIO2) 28 Equipment Usage Equipment in Use Continuous SpO2 Machine # 13 Intake & Output 09/23/17 09/24/17 09/25/17 06:59 06:59 06:59 Intake Total 437 1570 Output Total 1800 Balance 437 -230 Weight 78.1 kg 72.9 kg General appearance: PRESENT: no acute distress, well-developed, well-nourished, other - She continues to receive oxygen via nasal cannula. Head exam: PRESENT: atraumatic, normocephalic Mouth exam: PRESENT: moist, tongue midline Respiratory exam: PRESENT: other - Yes quite common that started this anything she continues to have a prolonged expiratory phase with end expiratory wheezing noted throughout all lung preciado. She has some coarse scattered breast counts as well. Cardiovascular exam: PRESENT: RRR. ABSENT: diastolic murmur, rubs, systolic murmur GI/Abdominal exam: PRESENT: normal bowel sounds, soft. ABSENT: distended, guarding, mass, organolmegaly, rebound, tenderness Rectal exam: PRESENT: deferred Extremities exam: PRESENT: full ROM. ABSENT: calf tenderness, clubbing, pedal edema Musculoskeletal exam: PRESENT: ambulatory Neurological exam: PRESENT: alert, awake, oriented to person, oriented to place , oriented to time, oriented to situation, CN II-XII grossly intact. ABSENT: motor sensory deficit Psychiatric exam: PRESENT: appropriate affect, normal mood. ABSENT: homicidal ideation, suicidal ideation Skin exam: PRESENT: dry, intact, warm. ABSENT: cyanosis, rash Results Laboratory Results: 09/24/17 05:50 09/24/17 05:50 09/24/17 09/24/17 09/24/17 05:50 05:50 05:50 WBC 10.1 RBC 4.70 Hgb 12.0 Hct 36.4 MCV 78 L MCH 25.6 L MCHC 33.0 RDW 14.9 H Plt Count 295 Seg Neutrophils % 82.6 H Lymphocytes % 7.2 L Monocytes % 10.1 Eosinophils % 0.0 Basophils % 0.1 Absolute Neutrophils 8.4 H Absolute Lymphocytes 0.7 Absolute Monocytes 1.0 Absolute Eosinophils 0.0 Absolute Basophils 0.0 Sodium 143.4 Potassium 3.9 Chloride 103 Carbon Dioxide 31 H Anion Gap 9 BUN 15 Creatinine 0.63 Cancelled Est GFR ( Amer) > 60 Cancelled Est GFR (Non-Af Amer) > 60 Cancelled Glucose 180 H Calcium 9.9 Magnesium 2.2 09/23/17 05:18 NT-Pro-B Natriuret Pep 60 Impressions: Chest X-Ray 09/22/17 06:21 IMPRESSION: Small left basilar pneumonia/atelectasis. Assessment & Plan - Diagnosis (1) Acute respiratory failure with hypoxemia Is this a current diagnosis for this admission?: Yes Plan: Secondary to underlying COPD exacerbation as well as pneumonia. Oxygen support as needed. Currently she is requiring 2 L oxygen via nasal cannula. This is an improvement since yesterday. She will continue aggressive breathing treatments and therapy as outlined below (2) Sepsis Qualifiers: Sepsis type: sepsis due to unspecified organism Qualified Code(s): A41.9 - Sepsis, unspecified organism Is this a current diagnosis for this admission?: Yes Plan: Present on admission. The patient has leukocytosis, tachycardia, tachypnea, fever and evidence of infection. His her sepsis is secondary to underlying pneumonia. She is improving and her sepsis symptoms are resolving. (3) Right lower lobe pneumonia Qualifiers: Aspiration pneumonia type: unspecified Is this a current diagnosis for this admission?: Yes Plan: Appreciate the input from infectious disease who feels that this could be a viral pneumonia. I am concerned due to her immunosuppressed state and the fact that the patient has already had influenza and I believe this pneumonia is a possible complication from her recent flu that she does need ongoing antibiotic therapy. My plan is for 3 days of broad-spectrum antibiotics and then to change the patient over to Levaquin alone. This is the third day of antibiotic therapy. Her vancomycin and meropenem will stop after her doses today. Again this is day #3 of treatment (4) COPD exacerbation Is this a current diagnosis for this admission?: Yes Plan: The patient Solu-Medrol was decreased yesterday. I am going to change her over to 60 mg of p.o. prednisone today. She is slowly improving (5) Diabetes Qualifiers: Diabetes mellitus type: type 2 Is this a current diagnosis for this admission?: Yes Plan: The patient refused sliding scale insulin in spite of multiple attempts by both the nursing staff and myself to reassure her that she would not be discharged on insulin and that we were doing this due to her hyperglycemia due to her steroids. She takes 500 mg of metformin twice daily at home. She was agreeable to taking 1000 mg of metformin twice daily and if her blood sugars were markedly uncontrolled she would consider a dose of sliding scale insulin. So far her blood sugars have improved although still on the high side. We are going to get her off the Solu-Medrol today and transition her to prednisone. She will continue the current dosage of metformin. (6) Hypokalemia Is this a current diagnosis for this admission?: Yes Plan: Repleted and resolved - Time Time Spent with patient: 25-34 minutes - Inpatient Certification Medical Necessity: Need Close Monitoring Due to Risk of Patient Decompensation, Need for IV Antibiotics, Other - Inpatient hospitalization remains necessary. The patient requiring parenteral antibiotics. She is still requiring oxygen therapy and she was not oxygen dependent prior to this hospitalization. Timing of disposition will be determined by her clinical course
[2017-09-24] MEDS: MONTELUKAST SODIUM 10 MG TABLET PO SCH (23:09)
[2017-09-25] MEDS: IPRATROPIUM/ALBUTEROL 0.5-2.5 MG/3 ML AMPUL NEB PRN ×3 (02:19→22:44)
[2017-09-25 05:59] LABS: ABSOLUTE LYMPHOCYTES (AUTO) 1.2 10^3/uL (0.5-4.7); ABSOLUTE MONOCYTES (AUTO) 0.8 10^3/uL (0.1-1.4); ABSOLUTE NEUT (AUTO) 6.6 10^3/uL (1.7-8.2); BASOPHILS % (AUTO) 0.3 % (0-2); HEMATOCRIT 36.5 % (36.0-47.0); HEMOGLOBIN 12.2 g/dL (12.0-15.5); LYMPHOCYTES % (AUTO) 13.9 % (13-45); MEAN CORPUSCULAR HEMOGLOBIN 25.5 pg (27.0-33.4); MEAN CORPUSCULAR HGB CONC 33.3 g/dL (32.0-36.0); MEAN CORPUSCULAR VOLUME 76 fl (80-97); MONOCYTES % (AUTO) 9.6 % (3-13); PLATELET COUNT 284 10^3/uL (150-450); RED BLOOD COUNT 4.77 10^6/uL (3.72-5.28); RED CELL DISTRIBUTION WIDTH 15.2 % (11.5-14.0); SEGMENTED NEUTROPHILS % (AUTO) 76.2 % (42-78); TOTAL CELLS COUNTED % (AUTO) 100 %; WHITE BLOOD COUNT 8.7 10^3/uL (4.0-10.5)
[2017-09-25 06:15] LABS: ANION GAP 9 (5-19); BLOOD UREA NITROGEN 14 mg/dL (7-20); CALCIUM 9.6 mg/dL (8.4-10.2); CARBON DIOXIDE 30 mmol/L (22-30); CHLORIDE 102 mmol/L (98-107); GLUCOSE 123 mg/dL (75-110); POTASSIUM 3.6 mmol/L (3.6-5.0); SODIUM 141.2 mmol/L (137-145)
[2017-09-25] MEDS: TIOTROPIUM BROMIDE DPI 5 CAP/KIT (18 MCG/CAP) IH SCH (09:27)
[2017-09-25] MEDS: METFORMIN HCL 500 MG TABLET PO SCH ×2 (09:27→18:30)
[2017-09-25] MEDS: PREDNISONE 20 MG TABLET PO SCH (09:27)
[2017-09-25] MEDS: BUDESONIDE/FORMOTEROL 160-4.5 MCG 60 PUFF/6 GM MDI IH SCH ×2 (09:27→21:18)
[2017-09-25] MEDS: ENOXAPARIN SODIUM INJ 40 MG/0.4 ML DISP.SYRIN SUBCUT SCH (09:27)
[2017-09-25] MEDS: GUAIFENESIN 600 MG TABLET.SA PO SCH ×2 (09:27→21:19)
[2017-09-25] MEDS: LEVOFLOXACIN 750 MG/D5W RTU 750 MG/150 ML RTUPB IV SCH (12:47)
[2017-09-25 14:43] LABS: VANCOMYCIN,TROUGH 8.3 ug/mL (5.0-20.0)
--- NOTE | 2017-09-25 18:46 | PDOC PROGRESS REPORT ---
Subjective Progress Note for:: 09/25/17 Subjective:: The patient is a 56-year-old female with past medical history significant for COPD and type 2 diabetes who is followed by Dr. Patel as an outpatient. He is steroid dependent on 10 mg of prednisone daily, but does not require home oxygen. She was hospitalized with the flu earlier this year and states that she never fully recovered. She was admitted 09/22/17 for COPD exacerbation and PNA. She has been palced on broad spectrum antibiotics given her chronic steroid dependance. She is seen on rounds with her family members present. She is found sitting up in bed on supplemental oxygen at 2 L/min. She is noted to have wheezing any frequent productive cough. She is on continuous cardiac telemetry and pulse oximetry; I note that her oxygen saturations are in the mid 90s, her heart rate is 120-130 with minimal activity. She states that overall she is feeling much better. She denies fever chills, chest pain, palpitations, nausea vomiting and diarrhea overnight. She does continue to have dyspnea with minimal activity and a frequent productive cough. She requests a cough medication if possible to assist her she is not sleeping well. She has no other questions or concerns at this time. Reason For Visit: PNEUMONIA Physical Exam Vital Signs: Temp Pulse Resp BP Pulse Ox 99.2 F 116 H 16 135/85 H 97 09/25/17 15:54 09/25/17 15:54 09/25/17 15:54 09/25/17 15:54 09/25/17 15:54 Pulse Oximeter Continuous Start: 09/22/17 12: 05 Freq: RTQ4 Status: Active Document 09/25/17 12:00 [facility] (Rec: 09/25/17 12:03 [facility] [email or web address]) Pulse Oximetry Assessment Oxygen Saturation (92-100) 96 Oxygen Flow Rate (L/min) 2 Oxygen Delivery Method Simple Mask Equipment Usage Equipment in Use Continuous SpO2 Machine # 13 Intake & Output 09/24/17 09/25/17 09/26/17 06:59 06:59 06:59 Intake Total 1570 1410 502 Output Total 8509 788 1789 Balance -230 610 -498 Weight 72.9 kg 73.3 kg General appearance: PRESENT: no acute distress, well-developed, well-nourished Head exam: PRESENT: atraumatic, normocephalic Eye exam: PRESENT: conjunctiva pink, EOMI, PERRLA. ABSENT: scleral icterus Ear exam: PRESENT: normal external ear exam Mouth exam: PRESENT: moist, tongue midline Neck exam: ABSENT: carotid bruit, JVD, lymphadenopathy, thyromegaly Respiratory exam: PRESENT: prolonged expiratory phas, rhonchi, wheezes - Throughout, other - Supplemental oxygen. ABSENT: rales, tachypnea Cardiovascular exam: PRESENT: RRR, +S1, +S2, tachycardia. ABSENT: diastolic murmur, rubs, systolic murmur Pulses: PRESENT: normal dorsalis pedis pul Vascular exam: PRESENT: normal capillary refill GI/Abdominal exam: PRESENT: normal bowel sounds, soft. ABSENT: distended, guarding, mass, organolmegaly, rebound, tenderness Rectal exam: PRESENT: deferred Extremities exam: PRESENT: full ROM. ABSENT: calf tenderness, clubbing, pedal edema Neurological exam: PRESENT: alert, awake, oriented to person, oriented to place , oriented to time, oriented to situation, CN II-XII grossly intact. ABSENT: motor sensory deficit Psychiatric exam: PRESENT: appropriate affect, normal mood. ABSENT: homicidal ideation, suicidal ideation Skin exam: PRESENT: dry, intact, warm. ABSENT: cyanosis, rash Results Laboratory Results: 09/25/17 05:37 09/25/17 05:37 09/25/17 09/25/17 05:37 05:37 WBC 8.7 RBC 4.77 Hgb 12.2 Hct 36.5 MCV 76 L MCH 25.5 L MCHC 33.3 RDW 15.2 H Plt Count 284 Seg Neutrophils % 76.2 Lymphocytes % 13.9 Monocytes % 9.6 Eosinophils % 0.0 Basophils % 0.3 Absolute Neutrophils 6.6 Absolute Lymphocytes 1.2 Absolute Monocytes 0.8 Absolute Eosinophils 0.0 Absolute Basophils 0.0 Sodium 141.2 Potassium 3.6 Chloride 102 Carbon Dioxide 30 Anion Gap 9 BUN 14 Creatinine 0.54 Est GFR ( Amer) > 60 Est GFR (Non-Af Amer) > 60 Glucose 123 H Calcium 9.6 Magnesium 2.0 09/23/17 05:18 NT-Pro-B Natriuret Pep 60 Impressions: Chest X-Ray 09/22/17 06:21 IMPRESSION: Small left basilar pneumonia/atelectasis. Assessment & Plan - Diagnosis (1) Acute respiratory failure with hypoxemia Is this a current diagnosis for this admission?: Yes Plan: Secondary to COPD exacerbation and a right lower lobe pneumonia. She is admitted to [facility] on continuous cardiac telemetry and pulse oximetry. Supplemental oxygen is required to maintain oxygen levels greater than 90%. We will continue as needed DuoNeb treatments. Mucinex twice daily Prednisone 60 mg daily; of note patient chronically takes at least 10 mg daily for her COPD. (2) Right lower lobe pneumonia Qualifiers: Aspiration pneumonia type: unspecified Is this a current diagnosis for this admission?: Yes Plan: Blood cultures: No growth at 72 hours Infectious disease reviewed the medical and they commented that this could be a viral pneumonia. Previous provider was concerned about her immunosuppressed state as the patient is chronically on steroids. She is also had influenza recently. This raises the concern of a possible complication of the flu. She was initially placed on broad-spectrum antibiotics for 3 days and has been transitioned over to Levaquin. Today is the first day of Levaquin therapy. Continue Levaquin Remaining plan as above. (3) COPD with exacerbation Is this a current diagnosis for this admission?: Yes Plan: We will continue Spiriva and Symbicort. Continue Mucinex. Continue Singulair. Remaining plan as above. Consider consultation with Dr. Patel if the patient does not continue to demonstrate improvement. (4) Sepsis Qualifiers: Sepsis type: sepsis due to unspecified organism Qualified Code(s): A41.9 - Sepsis, unspecified organism Is this a current diagnosis for this admission?: Yes Plan: Present on admission. The patient had leukocytosis, tachycardia, tachypnea, fever and evidence of infection. Her sepsis is secondary to pneumonia. She continues to improve and her symptoms are resolving. (5) Diabetes Qualifiers: Diabetes mellitus type: type 2 Is this a current diagnosis for this admission?: Yes Plan: The patient continues to refuse sliding scale insulin in spite of multiple attempts by both nursing staff and the previous provider to explain that the insulin is as short-term measure while she is hospitalized. Transitioned off Solu-Medrol to p.o. prednisone yesterday no noticeable improvement in blood sugar as of yet. We will continue metformin 1000 mg twice daily. Will continue to attempt education with regard to sliding scale insulin. Patient will benefit from preschool teacher aide and registered dietitian; appreciate their assistance. (6) Tachycardia Is this a current diagnosis for this admission?: Yes Plan: The patient's tachycardia may in part be to Sepsis/RLL Pneumonia. However, the patient tells me that she is prescribed high-dose diltiazem due to refractory tachycardia. Appears that the patient has not been receiving this since her admission. I have resumed this medication. We will continue to monitor on continuous cardiac telemetry. (7) Hypokalemia Is this a current diagnosis for this admission?: Yes Plan: Resolved. - Time Time Spent with patient: 25-34 minutes Medications reviewed and adjusted accordingly: Yes Anticipated discharge: Home
[2017-09-25] MEDS: GUAIFENESIN/CODEINE PHOS 100-10 MG/ 5 ML UDC PO PRN (21:18)
[2017-09-25] MEDS: MONTELUKAST SODIUM 10 MG TABLET PO SCH (21:19)
[2017-09-25] MEDS: DILTIAZEM HCL 240 MG CAPSULE.CR PO SCH (21:19)
[2017-09-25] MEDS ORDERED: DILTIAZEM HCL 240 MG PO SCH (22:00)
[2017-09-26] MEDS: METFORMIN HCL 500 MG TABLET PO SCH ×2 (08:32→16:25)
[2017-09-26] MEDS: IPRATROPIUM/ALBUTEROL 0.5-2.5 MG/3 ML AMPUL NEB PRN (10:03)
[2017-09-26] MEDS: PREDNISONE 20 MG TABLET PO SCH (10:45)
[2017-09-26] MEDS: BUDESONIDE/FORMOTEROL 160-4.5 MCG 60 PUFF/6 GM MDI IH SCH ×2 (10:45→21:09)
[2017-09-26] MEDS: ENOXAPARIN SODIUM INJ 40 MG/0.4 ML DISP.SYRIN SUBCUT SCH (10:45)
[2017-09-26] MEDS: TIOTROPIUM BROMIDE DPI 5 CAP/KIT (18 MCG/CAP) IH SCH (10:45)
[2017-09-26] MEDS: GUAIFENESIN 600 MG TABLET.SA PO SCH ×2 (10:45→21:09)
[2017-09-26] MEDS: DILTIAZEM HCL 240 MG CAPSULE.CR PO SCH ×2 (10:45→21:09)
[2017-09-26] MEDS ORDERED: TRAMADOL HCL 50 MG TABLET PO PRN (12:15)
[2017-09-26] MEDS ORDERED: ONDANSETRON HCL INJ/PF 4 MG/2 ML SDV IV PRN (12:36)
[2017-09-26] MEDS ORDERED: PROMETHAZINE HCL INJ 25 MG/1 ML VIAL IV PRN (12:37)
[2017-09-26] MEDS: LEVOFLOXACIN 750 MG/D5W RTU 750 MG/150 ML RTUPB IV SCH (12:41)
--- NOTE | 2017-09-26 14:38 | PDOC PROGRESS REPORT ---
Subjective Progress Note for:: 09/26/17 Subjective:: The patient is a 56-year-old female with past medical history significant for COPD and type 2 diabetes who is followed by Dr. Patel as an outpatient. He is steroid dependent on 10 mg of prednisone daily, but does not require home oxygen. She was hospitalized with the flu earlier this year and states that she never fully recovered. She was admitted 09/22/17 for COPD exacerbation and PNA. She has been palced on broad spectrum antibiotics given her chronic steroid dependance. She is seen on rounds; she is found sitting to the edge of the bed on room air having just returned from the restroom. She states that she did not become overtly short of breath with this, but does feel that she would not be able to ambulate much further or to stay off oxygen for any great amount of time without significant shortness of breath. She is assisted with replacing her oxygen. She continues to have a frequent productive cough that, despite addition of codeine cough syrup, kept her up most of the night. She also reports loose stools and nausea this morning. She denies fever, chills , abdominal pain. No emesis as of yet. Overall, the patient states that she feels that she is gradually improving. Reason For Visit: PNEUMONIA Physical Exam Vital Signs: Temp Pulse Resp BP Pulse Ox 99.0 F 105 H 18 128/64 H 99 09/26/17 08:22 09/26/17 10:03 09/26/17 10:03 09/26/17 08:22 09/26/17 12:03 Pulse Oximeter Continuous Start: 09/22/17 12: 05 Freq: RTQ4 Status: Active Document 09/26/17 12:03 [facility] (Rec: 09/26/17 12:03 TPO [email or web address]) Pulse Oximetry Assessment Oxygen Saturation (92-100) 99 Oxygen Delivery Method Room Air Fraction of Inspired Oxygen (FIO2) 21 Equipment Usage Equipment in Use Continuous SpO2 Machine # 13 Intake & Output 09/25/17 09/26/17 09/27/17 06:59 06:59 06:59 Intake Total 1410 1552 Output Total 800 1250 Balance 610 302 Weight 73.3 kg 73.3 kg General appearance: PRESENT: no acute distress, well-developed, well-nourished, other - Overweight Head exam: PRESENT: atraumatic, normocephalic Eye exam: PRESENT: conjunctiva pink, EOMI, PERRLA. ABSENT: scleral icterus Ear exam: PRESENT: normal external ear exam Mouth exam: PRESENT: moist, tongue midline Neck exam: ABSENT: carotid bruit, JVD, lymphadenopathy, thyromegaly Respiratory exam: PRESENT: prolonged expiratory phas, symmetrical, wheezes - Throughout, other - Supplemental oxygen at 2 L/min. ABSENT: rales, rhonchi Cardiovascular exam: PRESENT: RRR, +S1, +S2, tachycardia. ABSENT: diastolic murmur, rubs, systolic murmur Pulses: PRESENT: normal dorsalis pedis pul Vascular exam: PRESENT: normal capillary refill GI/Abdominal exam: PRESENT: normal bowel sounds, soft. ABSENT: distended, guarding, mass, organolmegaly, rebound, tenderness Rectal exam: PRESENT: deferred Extremities exam: PRESENT: full ROM. ABSENT: calf tenderness, clubbing, pedal edema Neurological exam: PRESENT: alert, awake, oriented to person, oriented to place , oriented to time, oriented to situation, CN II-XII grossly intact. ABSENT: motor sensory deficit Psychiatric exam: PRESENT: appropriate affect, normal mood. ABSENT: homicidal ideation, suicidal ideation Skin exam: PRESENT: dry, intact, warm. ABSENT: cyanosis, rash Results Laboratory Results: 09/25/17 05:37 09/25/17 05:37 09/23/17 05:18 NT-Pro-B Natriuret Pep 60 Impressions: Chest X-Ray 09/22/17 06:21 IMPRESSION: Small left basilar pneumonia/atelectasis. Assessment & Plan - Diagnosis (1) Acute respiratory failure with hypoxemia Is this a current diagnosis for this admission?: Yes Plan: Secondary to COPD exacerbation and a right lower lobe pneumonia. She is admitted to [facility] on continuous cardiac telemetry and pulse oximetry. Supplemental oxygen is required to maintain oxygen levels greater than 90%. We will continue as needed DuoNeb treatments. Mucinex twice daily Prednisone 60 mg daily; of note patient chronically takes at least 10 mg daily for her COPD. (2) Right lower lobe pneumonia Qualifiers: Aspiration pneumonia type: unspecified Is this a current diagnosis for this admission?: Yes Plan: Blood cultures: No growth at 72 hours Infectious disease reviewed the medical and they commented that this could be a viral pneumonia. Previous provider was concerned about her immunosuppressed state as the patient is chronically on steroids. She is also had influenza recently. This raises the concern of a possible complication of the flu. She was initially placed on broad-spectrum antibiotics for 3 days and has been transitioned over to Levaquin. Continue Levaquin; this is day 2. Remaining plan as above. (3) COPD with exacerbation Is this a current diagnosis for this admission?: Yes Plan: We will continue Spiriva and Symbicort. Continue Mucinex. Continue Singulair. Flutter valve to bedside. Remaining plan as above. Consider consultation with Dr. Patel if the patient does not continue to demonstrate improvement. (4) Sepsis Qualifiers: Sepsis type: sepsis due to unspecified organism Qualified Code(s): A41.9 - Sepsis, unspecified organism Is this a current diagnosis for this admission?: Yes Plan: Present on admission. The patient had leukocytosis, tachycardia, tachypnea, fever and evidence of infection. Her sepsis is secondary to pneumonia. She continues to improve and her symptoms are resolving. (5) Diabetes Qualifiers: Diabetes mellitus type: type 2 Is this a current diagnosis for this admission?: Yes Plan: Blood glucose ranging 117-336. The patient continues to refuse sliding scale insulin in spite of multiple attempts by both nursing staff and the previous provider to explain that the insulin is as short-term measure while she is hospitalized. Transitioned off Solu-Medrol to p.o. prednisone yesterday no noticeable improvement in blood sugar as of yet. We will continue metformin 1000 mg twice daily. Will continue to attempt education with regard to sliding scale insulin. Patient will benefit from hospital educator and registered dietitian; appreciate their assistance. (6) Tachycardia Is this a current diagnosis for this admission?: Yes Plan: The patient's tachycardia may in part be to Sepsis/RLL Pneumonia. However, the patient tells me that she is prescribed high-dose diltiazem due to refractory tachycardia. The patient's home dose diltiazem. HR appears to have trended down slightly since resuming medication yesterday. We will continue to monitor on continuous cardiac telemetry. (7) Hypokalemia Is this a current diagnosis for this admission?: Yes Plan: Resolved. (8) Diarrhea Is this a current diagnosis for this admission?: Yes Plan: Patient reports loose stools. She was previously on broad-spectrum antibiotics and so there is some slight concern for C. difficile. She is afebrile, normal WBC, and denies abdominal pain. We will check for C. difficile. We will start lactobacillus. Consider Imodium if C. difficile negative. - Time Time Spent with patient: 25-34 minutes Medications reviewed and adjusted accordingly: Yes Anticipated discharge: Home - Inpatient Certification Based on my medical assessment, after consideration of the patient's comorbidities, presenting symptoms, or acuity I expect that the services needed warrant INPATIENT care.: Yes I certify that my determination is in accordance with my understanding of Medicare's requirements for reasonable and necessary INPATIENT services [42 CFR 412.3e].: Yes Medical Necessity: Need Close Monitoring Due to Risk of Patient Decompensation, Need For Continuous Telemetry Monitoring, Need for Nebulizer Therapy and Monitoring of Response
[2017-09-26] MEDS: LACTOBACILLUS ACIDOPHILUS 250 MG TAB PO SCH (17:59)
[2017-09-26] MEDS: GUAIFENESIN/CODEINE PHOS 100-10 MG/ 5 ML UDC PO PRN (21:07)
[2017-09-26] MEDS: MONTELUKAST SODIUM 10 MG TABLET PO SCH (21:09)
[2017-09-27 06:17] LABS: ABSOLUTE LYMPHOCYTES (AUTO) 1.6 10^3/uL (0.5-4.7); ABSOLUTE MONOCYTES (AUTO) 0.7 10^3/uL (0.1-1.4); ABSOLUTE NEUT (AUTO) 3.5 10^3/uL (1.7-8.2); BASOPHILS % (AUTO) 0.3 % (0-2); HEMATOCRIT 36.7 % (36.0-47.0); HEMOGLOBIN 12.5 g/dL (12.0-15.5); LYMPHOCYTES % (AUTO) 27.9 % (13-45); MEAN CORPUSCULAR HEMOGLOBIN 25.8 pg (27.0-33.4); MEAN CORPUSCULAR HGB CONC 33.9 g/dL (32.0-36.0); MEAN CORPUSCULAR VOLUME 76 fl (80-97); MONOCYTES % (AUTO) 12.1 % (3-13); PLATELET COUNT 253 10^3/uL (150-450); RED BLOOD COUNT 4.83 10^6/uL (3.72-5.28); RED CELL DISTRIBUTION WIDTH 14.9 % (11.5-14.0); SEGMENTED NEUTROPHILS % (AUTO) 59.7 % (42-78); TOTAL CELLS COUNTED % (AUTO) 100 %; WHITE BLOOD COUNT 5.9 10^3/uL (4.0-10.5)
[2017-09-27 07:26] LABS: ANION GAP 12 (5-19); BLOOD UREA NITROGEN 15 mg/dL (7-20); CALCIUM 9.5 mg/dL (8.4-10.2); CARBON DIOXIDE 31 mmol/L (22-30); CHLORIDE 99 mmol/L (98-107); GLUCOSE 114 mg/dL (75-110); POTASSIUM 3.7 mmol/L (3.6-5.0)
[2017-09-27] MEDS: METFORMIN HCL 500 MG TABLET PO SCH ×2 (08:20→15:50)
[2017-09-27] MEDS: GUAIFENESIN 600 MG TABLET.SA PO SCH ×2 (10:08→22:01)
[2017-09-27] MEDS: DILTIAZEM HCL 240 MG CAPSULE.CR PO SCH ×2 (10:08→22:02)
[2017-09-27] MEDS: BUDESONIDE/FORMOTEROL 160-4.5 MCG 60 PUFF/6 GM MDI IH SCH ×2 (10:09→22:02)
[2017-09-27] MEDS: PREDNISONE 20 MG TABLET PO SCH (10:09)
[2017-09-27] MEDS: LACTOBACILLUS ACIDOPHILUS 250 MG TAB PO SCH ×2 (10:09→17:00)
[2017-09-27] MEDS: ENOXAPARIN SODIUM INJ 40 MG/0.4 ML DISP.SYRIN SUBCUT SCH (10:10)
--- NOTE | 2017-09-27 11:17 | RADIOLOGY REPORT (SQ) ---
EXAM DESCRIPTION: CHEST PA/LAT COMPLETED DATE/TIME: 09/27/2017 11:09 am REASON FOR STUDY: Dyspnea COMPARISON: Two-view chest 09/06/2017 CT angio chest 02/02/2017 EXAM PARAMETERS: NUMBER OF VIEWS: two views TECHNIQUE: Digital Frontal and Lateral radiographic views of the chest acquired. RADIATION DOSE: NA LIMITATIONS: none FINDINGS: LUNGS AND PLEURA: No opacities, masses or pneumothorax. No pleural effusion. MEDIASTINUM AND HILAR STRUCTURES: No masses or contour abnormalities. HEART AND VASCULAR STRUCTURES: Heart normal size. No evidence for failure. BONES: No acute findings. HARDWARE: None in the chest. OTHER: No other significant finding. IMPRESSION: NO SIGNIFICANT RADIOGRAPHIC FINDING IN THE CHEST. TECHNICAL DOCUMENTATION: JOB ID: [id number] [employer]- All Rights Reserved Reading location - IP/workstation name: [email or web address]
--- NOTE | 2017-09-27 11:29 | PDOC PROGRESS REPORT ---
Subjective Progress Note for:: 09/27/17 Subjective:: The patient is a 56-year-old female with past medical history significant for COPD and type 2 diabetes who is followed by Dr. Patel as an outpatient. He is steroid dependent on 10 mg of prednisone daily, but does not require home oxygen. She was hospitalized with the flu earlier this year and states that she never fully recovered. She was admitted 09/22/17 for COPD exacerbation and PNA. She was initially placed on broad spectrum antibiotics given her chronic steroid dependance and has since been transitioned to Levaquin. She is seen on rounds; she is found ambulating in the room on supplemental oxygen. She is noted to be maintaining her oxygen saturations in the low 90s with a tachycardic heart rate of 112. She is speaking full sentences, however does have a very frequent cough. She states that she is feeling slightly better today, however, is frustrated by the slowness by which she is improving. She does report that she has had no further episodes of loose stools; this stopped early yesterday evening. She denies abdominal pain, constipation, nausea and vomiting. She denies fever, chills, chest pain, palpitations. She does endorse dyspnea and a productive cough. She has no new questions or concerns today. Reason For Visit: PNEUMONIA Physical Exam Vital Signs: Temp Pulse Resp BP Pulse Ox 98.7 F 71 16 107/65 95 09/27/17 07:33 09/27/17 07:33 09/27/17 07:33 09/27/17 07:33 09/27/17 08:41 Pulse Oximeter Continuous Start: 09/22/17 12: 05 Freq: RTQ4 Status: Active Document 09/27/17 08:41 TPO (Rec: 09/27/17 08:42 TPO [email or web address]) Pulse Oximetry Assessment Oxygen Saturation (92-100) 95 Oxygen Flow Rate (L/min) 2 Oxygen Delivery Method Nasal Cannula Fraction of Inspired Oxygen (FIO2) 28 Equipment Usage Equipment in Use Continuous SpO2 Machine # 13 Intake & Output 09/26/17 09/27/17 09/28/17 06:59 06:59 06:59 Intake Total 1552 1030 Output Total 1250 1500 Balance 302 -470 Weight 73.3 kg 73.6 kg General appearance: PRESENT: no acute distress, well-developed, well-nourished, other - Overweight Head exam: PRESENT: atraumatic, normocephalic Eye exam: PRESENT: conjunctiva pink, EOMI, PERRLA. ABSENT: scleral icterus Ear exam: PRESENT: normal external ear exam Mouth exam: PRESENT: moist, tongue midline Neck exam: ABSENT: carotid bruit, JVD, lymphadenopathy, thyromegaly Respiratory exam: PRESENT: rhonchi, symmetrical, unlabored, wheezes, other - Omental oxygen. ABSENT: rales Cardiovascular exam: PRESENT: RRR, +S1, +S2, tachycardia. ABSENT: diastolic murmur, rubs, systolic murmur Pulses: PRESENT: normal dorsalis pedis pul Vascular exam: PRESENT: normal capillary refill GI/Abdominal exam: PRESENT: normal bowel sounds, soft. ABSENT: distended, guarding, mass, organolmegaly, rebound, tenderness Rectal exam: PRESENT: deferred Extremities exam: PRESENT: full ROM. ABSENT: calf tenderness, clubbing, pedal edema Neurological exam: PRESENT: alert, awake, oriented to person, oriented to place , oriented to time, oriented to situation, CN II-XII grossly intact. ABSENT: motor sensory deficit Psychiatric exam: PRESENT: appropriate affect, normal mood. ABSENT: homicidal ideation, suicidal ideation Skin exam: PRESENT: dry, intact, warm. ABSENT: cyanosis, rash Results Laboratory Results: 09/27/17 05:30 09/27/17 05:30 09/27/17 09/27/17 05:30 05:30 WBC 5.9 RBC 4.83 Hgb 12.5 Hct 36.7 MCV 76 L MCH 25.8 L MCHC 33.9 RDW 14.9 H Plt Count 253 Seg Neutrophils % 59.7 Lymphocytes % 27.9 Monocytes % 12.1 Eosinophils % 0.0 Basophils % 0.3 Absolute Neutrophils 3.5 Absolute Lymphocytes 1.6 Absolute Monocytes 0.7 Absolute Eosinophils 0.0 Absolute Basophils 0.0 Sodium 142.0 Potassium 3.7 Chloride 99 Carbon Dioxide 31 H Anion Gap 12 BUN 15 Creatinine 0.58 Est GFR ( Amer) > 60 Est GFR (Non-Af Amer) > 60 Glucose 114 H Calcium 9.5 09/23/17 05:18 NT-Pro-B Natriuret Pep 60 Impressions: Chest X-Ray 09/27/17 00:00 IMPRESSION: NO SIGNIFICANT RADIOGRAPHIC FINDING IN THE CHEST. Assessment & Plan - Diagnosis (1) Acute respiratory failure with hypoxemia Is this a current diagnosis for this admission?: Yes Plan: Appears to have plateaued. Secondary to COPD exacerbation and a right lower lobe pneumonia. Repeat chest x-ray today: No significant radiographic findings in the chest. She is admitted to [facility] on continuous cardiac telemetry and pulse oximetry. Supplemental oxygen is required to maintain oxygen levels greater than 90%. We will continue as needed DuoNeb treatments. Mucinex twice daily Prednisone 60 mg daily; of note patient chronically takes at least 10 mg daily for her COPD. (2) Right lower lobe pneumonia Qualifiers: Aspiration pneumonia type: unspecified Is this a current diagnosis for this admission?: Yes Plan: Blood cultures (final): No growth. Infectious disease reviewed the medical and they commented that this could be a viral pneumonia. Previous provider was concerned about her immunosuppressed state as the patient is chronically on steroids. She is also had influenza recently. This raises the concern of a possible complication of the flu. She was initially placed on broad-spectrum antibiotics for 3 days and has been transitioned over to Levaquin. Continue Levaquin; this is day 3. Remaining plan as above. (3) COPD with exacerbation Is this a current diagnosis for this admission?: Yes Plan: We will continue Spiriva and Symbicort. Continue Mucinex. Continue Singulair. Flutter valve to bedside. Remaining plan as above. We will consult Dr. Patel; appreciate his evaluation and recommendations. (4) Sepsis Qualifiers: Sepsis type: sepsis due to unspecified organism Qualified Code(s): A41.9 - Sepsis, unspecified organism Is this a current diagnosis for this admission?: Yes Plan: Present on admission. The patient had leukocytosis, tachycardia, tachypnea, fever and evidence of infection. Her sepsis is secondary to pneumonia. She continues to improve and her symptoms are resolving. (5) Diabetes Qualifiers: Diabetes mellitus type: type 2 Is this a current diagnosis for this admission?: Yes Plan: Blood glucose ranging 114-336. The patient continues to refuse sliding scale insulin in spite of multiple attempts by both nursing staff and the previous provider to explain that the insulin is as short-term measure while she is hospitalized. Of note, the patient is on daily prednisone therapy. We will continue metformin 1000 mg twice daily. Will continue to attempt education with regard to sliding scale insulin during inpatient stays. Patient will benefit from data power consultant and registered dietitian; appreciate their assistance. (6) Tachycardia Is this a current diagnosis for this admission?: Yes Plan: Improved; HR now mid 70s-80s. The patient's tachycardia may in part be to Sepsis/RLL Pneumonia. However, the patient tells me that she is prescribed high-dose diltiazem due to refractory tachycardia. Continue diltiazem. We will continue to monitor on continuous cardiac telemetry. (7) Hypokalemia Is this a current diagnosis for this admission?: Yes Plan: Resolved. (8) Diarrhea Is this a current diagnosis for this admission?: Yes Plan: Resolved. Patient reports loose stools yesterday. She was previously on broad-spectrum antibiotics and so there is some slight concern for C. difficile. She is afebrile, normal WBC, and denies abdominal pain. Stool for C. difficile was not collected as symptoms resolved. Continue lactobacillus. - Time Time Spent with patient: 25-34 minutes Medications reviewed and adjusted accordingly: Yes Anticipated discharge: Home
[2017-09-27] MEDS: TIOTROPIUM BROMIDE DPI 5 CAP/KIT (18 MCG/CAP) IH SCH (11:30)
[2017-09-27] MEDS: LEVOFLOXACIN 750 MG/D5W RTU 750 MG/150 ML RTUPB IV SCH (11:46)
[2017-09-27] MEDS: GUAIFENESIN/CODEINE PHOS 100-10 MG/ 5 ML UDC PO PRN (22:02)
[2017-09-27] MEDS: MONTELUKAST SODIUM 10 MG TABLET PO SCH (22:02)
[2017-09-28] MEDS: METFORMIN HCL 500 MG TABLET PO SCH ×2 (08:39→16:45)
[2017-09-28] MEDS: ENOXAPARIN SODIUM INJ 40 MG/0.4 ML DISP.SYRIN SUBCUT SCH (09:53)
[2017-09-28] MEDS: TIOTROPIUM BROMIDE DPI 5 CAP/KIT (18 MCG/CAP) IH SCH (09:53)
[2017-09-28] MEDS: PREDNISONE 20 MG TABLET PO SCH (09:53)
[2017-09-28] MEDS: GUAIFENESIN 600 MG TABLET.SA PO SCH ×2 (09:53→21:15)
[2017-09-28] MEDS: LACTOBACILLUS ACIDOPHILUS 250 MG TAB PO SCH ×2 (09:53→18:06)
[2017-09-28] MEDS: BUDESONIDE/FORMOTEROL 160-4.5 MCG 60 PUFF/6 GM MDI IH SCH ×2 (09:54→21:14)
[2017-09-28] MEDS: DILTIAZEM HCL 240 MG CAPSULE.CR PO SCH ×2 (09:54→21:14)
--- NOTE | 2017-09-28 11:45 | PDOC PROGRESS REPORT ---
Subjective Progress Note for:: 09/28/17 Subjective:: The patient is a 56-year-old female with past medical history significant for COPD and type 2 diabetes who is followed by Dr. Patel as an outpatient. She is steroid dependent on 10 mg of prednisone daily, but does not require home oxygen. She was hospitalized with the flu earlier this year and states that she never fully recovered. She was admitted 09/22/17 for COPD exacerbation and PNA. She was initially placed on broad spectrum antibiotics and has since been transitioned to Levaquin. She is seen on rounds; she is found sitting upright in bed on supplemental oxygen at 3 lpm. She is noted to be maintaining her oxygen saturations in the mid 90s with a heart rate of 86. She is speaking full sentences, however does have a very frequent cough. She states that she does not feel much better today. However, she did sleep better overnight. She does report that she has had no further episodes of loose stools. She denies abdominal pain, constipation, nausea and vomiting. She denies fever, chills, chest pain, palpitations. She does endorse dyspnea and a productive cough. She has no new questions or concerns today. Reason For Visit: PNEUMONIA Physical Exam Vital Signs: Temp Pulse Resp BP Pulse Ox 98.4 F 75 16 125/71 99 09/28/17 07:18 09/28/17 07:18 09/28/17 07:18 09/28/17 07:18 09/28/17 07:18 Pulse Oximeter Continuous Start: 09/22/17 12: 05 Freq: RTQ4 Status: Active Document 09/28/17 04:00 STI (Rec: 09/28/17 04:36 STI [email or web address]) Pulse Oximetry Assessment Oxygen Saturation (92-100) 95 Oxygen Flow Rate (L/min) 2.0 Oxygen Delivery Method Nasal Cannula Fraction of Inspired Oxygen (FIO2) 28 Equipment Usage Equipment in Use Continuous SpO2 Machine # 13 Intake & Output 09/27/17 09/28/17 09/29/17 06:59 06:59 06:59 Intake Total 1030 920 Output Total 1500 1300 Balance -470 -380 Weight 73.6 kg 73.1 kg General appearance: PRESENT: no acute distress, well-developed, well-nourished, other - OVerweight Head exam: PRESENT: atraumatic, normocephalic Eye exam: PRESENT: conjunctiva pink, EOMI, PERRLA. ABSENT: scleral icterus Ear exam: PRESENT: normal external ear exam Mouth exam: PRESENT: moist, tongue midline Neck exam: ABSENT: carotid bruit, JVD, lymphadenopathy, thyromegaly Respiratory exam: PRESENT: rhonchi - Throughout, symmetrical, wheezes - Inspiratory/expiratory throughout, other - Supplemental oxygen at 3 lpm. ABSENT : rales Cardiovascular exam: PRESENT: RRR. ABSENT: diastolic murmur, rubs, systolic murmur Pulses: PRESENT: normal dorsalis pedis pul Vascular exam: PRESENT: normal capillary refill GI/Abdominal exam: PRESENT: normal bowel sounds, soft. ABSENT: distended, guarding, mass, organolmegaly, rebound, tenderness Rectal exam: PRESENT: deferred Extremities exam: PRESENT: full ROM. ABSENT: calf tenderness, clubbing, pedal edema Neurological exam: PRESENT: alert, awake, oriented to person, oriented to place , oriented to time, oriented to situation, CN II-XII grossly intact. ABSENT: motor sensory deficit Psychiatric exam: PRESENT: appropriate affect, normal mood. ABSENT: homicidal ideation, suicidal ideation Skin exam: PRESENT: dry, intact, warm. ABSENT: cyanosis, rash Results Laboratory Results: 09/27/17 05:30 09/27/17 05:30 09/23/17 05:18 NT-Pro-B Natriuret Pep 60 Impressions: Chest X-Ray 09/27/17 00:00 IMPRESSION: NO SIGNIFICANT RADIOGRAPHIC FINDING IN THE CHEST. Assessment & Plan - Diagnosis (1) Acute respiratory failure with hypoxemia Is this a current diagnosis for this admission?: Yes Plan: Appears to have plateaued. Secondary to COPD exacerbation and a right lower lobe pneumonia. Repeat chest x-ray yesterday: No significant radiographic findings in the chest. ABG pending. She is admitted to [facility] on continuous cardiac telemetry and pulse oximetry. Supplemental oxygen is required to maintain oxygen levels greater than 90%. Will add scheduled and continue as needed DuoNeb treatments. Mucinex twice daily Will escalate steroids to Solu-Medrol 40 mg q 8 hours; of note patient chronically takes at least 10 mg daily for her COPD. (2) Right lower lobe pneumonia Qualifiers: Aspiration pneumonia type: unspecified Is this a current diagnosis for this admission?: Yes Plan: Blood cultures (final): No growth. Infectious disease reviewed the medical and they commented that this could be a viral pneumonia. Previous provider was concerned about her immunosuppressed state as the patient is chronically on steroids. She is also had influenza recently. This raises the concern of a possible complication of the flu. She was initially placed on broad-spectrum antibiotics for 3 days and has been transitioned over to Levaquin. Continue Levaquin; this is day 4. Remaining plan as above. (3) COPD with exacerbation Is this a current diagnosis for this admission?: Yes Plan: We will continue Spiriva and Symbicort. Continue Mucinex. Continue Singulair. Flutter valve to bedside. Remaining plan as above. We will consult Dr. Patel; appreciate his evaluation and recommendations. (4) Sepsis Qualifiers: Sepsis type: sepsis due to unspecified organism Qualified Code(s): A41.9 - Sepsis, unspecified organism Is this a current diagnosis for this admission?: Yes Plan: Resolved; leukocytosis has resolved, pt is afebrile, she is no longer tachycardic or tachypneic. Present on admission secondary to RLL. The patient had leukocytosis, tachycardia, tachypnea, fever and evidence of infection. Her sepsis is secondary to pneumonia. (5) Diabetes Qualifiers: Diabetes mellitus type: type 2 Is this a current diagnosis for this admission?: Yes Plan: Blood glucose ranging 114-336. The patient continues to refuse sliding scale insulin in spite of multiple attempts by both nursing staff and the previous provider to explain that the insulin is as short-term measure while she is hospitalized. Of note, the patient is on daily prednisone therapy. We will continue metformin 1000 mg twice daily. Will continue to attempt education with regard to sliding scale insulin during inpatient stays. Patient will benefit from clinical unit educator and registered dietitian; appreciate their assistance. (6) Tachycardia Is this a current diagnosis for this admission?: Yes Plan: Improved; HR now mid 70s-80s. The patient's tachycardia may in part be to Sepsis/RLL Pneumonia. However, the patient tells me that she is prescribed high-dose diltiazem due to refractory tachycardia. Continue diltiazem. We will continue to monitor on continuous cardiac telemetry. (7) Diarrhea Is this a current diagnosis for this admission?: Yes Plan: Resolved. Patient reports loose stools. She was previously on broad-spectrum antibiotics and so there was some slight concern for C. difficile. She is afebrile, normal WBC, and denies abdominal pain. Stool for C. difficile was not collected as symptoms resolved. Continue lactobacillus. (8) Hypokalemia Is this a current diagnosis for this admission?: Yes Plan: Resolved. - Time Time Spent with patient: 25-34 minutes Medications reviewed and adjusted accordingly: Yes - Inpatient Certification Based on my medical assessment, after consideration of the patient's comorbidities, presenting symptoms, or acuity I expect that the services needed warrant INPATIENT care.: Yes I certify that my determination is in accordance with my understanding of Medicare's requirements for reasonable and necessary INPATIENT services [42 CFR 412.3e].: Yes Medical Necessity: Need Close Monitoring Due to Risk of Patient Decompensation, Need For Continuous Telemetry Monitoring, Need for Nebulizer Therapy and Monitoring of Response, Risk of Complication if Not Cared For in Hospital
[2017-09-28] MEDS: LEVOFLOXACIN 750 MG/D5W RTU 750 MG/150 ML RTUPB IV SCH (12:56)
[2017-09-28 13:20] LABS: ARTERIAL BLOOD FIO2 21%; ARTERIAL BLOOD H2CO3 1.19 mmol/L (1.05-1.35); ARTERIAL BLOOD HCO3 26.2 mmol/L (20-26); ARTERIAL BLOOD O2 SATURATION 94.7 % (94-98); ARTERIAL BLOOD PCO2 39.6 mmHg (35-45); ARTERIAL BLOOD PH 7.44 (7.35-7.45); ARTERIAL BLOOD PO2 70.1 mmHg (80-100); ARTERIAL BLOOD TOTAL CO2 27.4 mmol/L (21-25)
[2017-09-28] MEDS: METHYLPREDNISOLONE INJ 40 MG/1 ML SDV IV SCH ×2 (14:09→21:16)
[2017-09-28] MEDS: IPRATROPIUM/ALBUTEROL 0.5-2.5 MG/3 ML AMPUL NEB SCH (16:33)
[2017-09-28] MEDS: MONTELUKAST SODIUM 10 MG TABLET PO SCH (21:15)
[2017-09-29] MEDS: IPRATROPIUM/ALBUTEROL 0.5-2.5 MG/3 ML AMPUL NEB SCH ×4 (00:21→23:53)
[2017-09-29] MEDS: METHYLPREDNISOLONE INJ 40 MG/1 ML SDV IV SCH ×2 (05:37→14:52)
[2017-09-29 07:05] LABS: HEMATOCRIT 36.8 % (36.0-47.0); HEMOGLOBIN 12.4 g/dL (12.0-15.5); MEAN CORPUSCULAR HEMOGLOBIN 25.8 pg (27.0-33.4); MEAN CORPUSCULAR HGB CONC 33.6 g/dL (32.0-36.0); MEAN CORPUSCULAR VOLUME 77 fl (80-97); PLATELET COUNT 275 10^3/uL (150-450); RED BLOOD COUNT 4.78 10^6/uL (3.72-5.28); RED CELL DISTRIBUTION WIDTH 15.2 % (11.5-14.0)
[2017-09-29 07:29] LABS: ANION GAP 10 (5-19); BLOOD UREA NITROGEN 16 mg/dL (7-20); CALCIUM 9.8 mg/dL (8.4-10.2); CARBON DIOXIDE 28 mmol/L (22-30); CHLORIDE 105 mmol/L (98-107); GLUCOSE 229 mg/dL (75-110); POTASSIUM 3.8 mmol/L (3.6-5.0); SODIUM 142.6 mmol/L (137-145)
[2017-09-29] MEDS: METFORMIN HCL 500 MG TABLET PO SCH ×2 (09:57→14:53)
[2017-09-29] MEDS: ENOXAPARIN SODIUM INJ 40 MG/0.4 ML DISP.SYRIN SUBCUT SCH (09:58)
[2017-09-29] MEDS: TIOTROPIUM BROMIDE DPI 5 CAP/KIT (18 MCG/CAP) IH SCH (09:58)
[2017-09-29] MEDS: BUDESONIDE/FORMOTEROL 160-4.5 MCG 60 PUFF/6 GM MDI IH SCH ×2 (09:58→21:37)
[2017-09-29] MEDS: LACTOBACILLUS ACIDOPHILUS 250 MG TAB PO SCH ×2 (09:58→18:06)
[2017-09-29] MEDS: GUAIFENESIN 600 MG TABLET.SA PO SCH ×2 (09:58→21:37)
[2017-09-29] MEDS: DILTIAZEM HCL 240 MG CAPSULE.CR PO SCH ×2 (09:58→21:37)
--- NOTE | 2017-09-29 13:55 | PDOC PROGRESS REPORT ---
Subjective Progress Note for:: 09/29/17 Subjective:: Patient is admitted with COPD exacerbation and pneumonia. She states that she is feeling much better although still wheezing somewhat. She is off oxygen at this time. I have encouraged her to be more ambulatory. She was seen by the senior applications architect today. Reason For Visit: PNEUMONIA Physical Exam Vital Signs: Temp Pulse Resp BP Pulse Ox 98.3 F 102 H 16 141/76 H 94 09/29/17 11:32 09/29/17 11:32 09/29/17 11:32 09/29/17 11:32 09/29/17 12:00 Pulse Oximeter Continuous Start: 09/22/17 12: 05 Freq: RTQ4 Status: Active Document 09/29/17 12:00 CWH (Rec: 09/29/17 12:40 CWH [email or web address]) Pulse Oximetry Assessment Oxygen Saturation (92-100) 94 Oxygen Delivery Method Room Air Equipment Usage Equipment in Use Continuous SpO2 Machine # 13 Intake & Output 09/28/17 09/29/17 09/30/17 06:59 06:59 06:59 Intake Total 920 1604 Output Total 1300 750 Balance -380 854 Weight 73.1 kg 73.1 kg Results Laboratory Results: 09/29/17 06:54 09/29/17 06:54 09/29/17 09/29/17 06:54 06:54 WBC 5.0 RBC 4.78 Hgb 12.4 Hct 36.8 MCV 77 L MCH 25.8 L MCHC 33.6 RDW 15.2 H Plt Count 275 Sodium 142.6 Potassium 3.8 Chloride 105 Carbon Dioxide 28 Anion Gap 10 BUN 16 Creatinine 0.54 Est GFR ( Amer) > 60 Est GFR (Non-Af Amer) > 60 Glucose 229 H Calcium 9.8 09/23/17 05:18 NT-Pro-B Natriuret Pep 60 Impressions: Chest X-Ray 09/27/17 00:00 IMPRESSION: NO SIGNIFICANT RADIOGRAPHIC FINDING IN THE CHEST. Assessment & Plan - Time Time Spent with patient: 15-24 minutes Medications reviewed and adjusted accordingly: Yes Anticipated discharge: Home Within: within 48 hours - Plan Summary Plan Summary: Acute hypoxemic respiratory failure secondary to COPD exacerbation and right lower lobe pneumonia. Patient is clinically improved. She is off oxygen. She is still on IV Solu-Medrol and I will go ahead and taper that down today. 2. Right lower lobe pneumonia possibly superimposed on flu infection she is on Levaquin day 5. 3. COPD with acute exacerbation currently on bronchodilators and steroids clinically patient still is bronchospastic so we will taper her steroids cautiously and continued bronchodilators. 4. Sepsis present on admission secondary to right lower lobe pneumonia. This has resolved 5. Type 2 diabetes mellitus currently on sliding scale insulin as well as metformin. With the steroid her blood sugar is expected to be of her baseline 6. Tachycardia secondary to acute infection this has resolved 7. Diarrhea likely from the acute infection #8 hypokalemia resolved
[2017-09-29] MEDS: LEVOFLOXACIN 750 MG/D5W RTU 750 MG/150 ML RTUPB IV SCH (14:52)
[2017-09-29] MEDS: MONTELUKAST SODIUM 10 MG TABLET PO SCH (21:37)
[2017-09-30] MEDS: IPRATROPIUM/ALBUTEROL 0.5-2.5 MG/3 ML AMPUL NEB SCH (09:13)
[2017-09-30] MEDS ORDERED: PREDNISONE 20 MG TABLET PO SCH ×2 (10:00)
[2017-09-30] MEDS: LACTOBACILLUS ACIDOPHILUS 250 MG TAB PO SCH (10:30)
[2017-09-30] MEDS: DILTIAZEM HCL 240 MG CAPSULE.CR PO SCH (10:30)
[2017-09-30] MEDS: METFORMIN HCL 500 MG TABLET PO SCH (10:31)
[2017-09-30] MEDS: TIOTROPIUM BROMIDE DPI 5 CAP/KIT (18 MCG/CAP) IH SCH (10:31)
[2017-09-30] MEDS: GUAIFENESIN 600 MG TABLET.SA PO SCH (10:31)
[2017-09-30] MEDS: BUDESONIDE/FORMOTEROL 160-4.5 MCG 60 PUFF/6 GM MDI IH SCH (10:31)
[2017-09-30] MEDS: ENOXAPARIN SODIUM INJ 40 MG/0.4 ML DISP.SYRIN SUBCUT SCH (10:34)
--- NOTE | 2017-09-30 11:22 | PDOC DISCHARGE SUMMARY ---
General - Admit/Disc Date/PCP Admission Date/Primary Care Provider: 09/22/17 11:09 Discharge Date: 09/30/17 - Discharge Diagnosis (1) Pneumonia Is this a current diagnosis for this admission?: Yes Summary: Patient received Levaquin with significant improvement. Continue incentive spirometry and flutter valve. Follow-up with [facility] in 7-10 days. (2) COPD exacerbation Is this a current diagnosis for this admission?: Yes Summary: Continue outpatient regiment limit exposure to seasonal allergens. Taper prednisone over 5 days. (3) Diabetes Is this a current diagnosis for this admission?: Yes Summary: Continue outpatient regiment in addition to diabetic diet. Follow-up care in [facility] 7-10 days with glucometer - Additional Information Resuscitation Status: Full Code Discharge Diet: As Tolerated Discharge Activity: Activity As Tolerated Prescriptions: Metformin HCl [Glucophage 500 mg Tablet] 1,000 mg PO BIDACBS #60 tablet Prednisone [Deltasone 20 mg Tablet] 20 mg PO BID 5 Days tablet Home Medications: Budesonide/Formoterol Fumarate [Symbicort 160-4.5 Mcg Inhaler] 2 puff IH Q12 Diltiazem HCl [Cardizem LA] 240 mg PO Q12 09/22/17 Metformin HCl [Glucophage 500 mg Tablet] 500 mg PO Q12 09/22/17 Montelukast Sodium [Singulair 10 mg Tablet] 10 mg PO QHS 09/22/17 Prednisone [Deltasone 20 mg Tablet] 20 mg PO DAILY 09/22/17 Metformin HCl [Glucophage 500 mg Tablet] 1,000 mg PO BIDACBS #60 tablet Prednisone [Deltasone 20 mg Tablet] 20 mg PO BID 5 Days tablet 09/30/17 History of Present Illness History of Present Illness: ADDIE STEWART is a 57 year old female admitted with COPD exacerbation secondary to pneumonia requiring prednisone. Patient is afebrile for 36 hours and unremarkable labs ambulating without assistance. Stable and improved for discharge. Follow-up with [facility] in 7-10 days Physical Exam Vital Signs: Temp Pulse Resp BP Pulse Ox 97.8 F 117 H 18 138/65 H 95 09/29/17 23:37 09/30/17 09:13 09/30/17 09:13 09/29/17 23:37 09/30/17 09:13 Pulse Oximeter Continuous Start: 09/22/17 12: 05 Freq: RTQ4 Status: Active Document 09/30/17 09:13 TPO (Rec: 09/30/17 09:24 TPO [email or web address]) Pulse Oximetry Assessment Oxygen Saturation (92-100) 95 Oxygen Delivery Method Room Air Fraction of Inspired Oxygen (FIO2) 21 Equipment Usage Equipment Discontinued Continuous SpO2 Machine # 13 Intake & Output 09/28/17 09/29/17 09/30/17 11:59 11:59 11:59 Intake Total 920 1604 1860 Output Total 5736 181 0877 Balance -380 854 360 Weight 73.1 kg 73.1 kg 73.1 kg Results Laboratory Results: 09/29/17 06:54 09/29/17 06:54 09/23/17 05:18 NT-Pro-B Natriuret Pep 60 Impressions: Chest X-Ray 09/27/17 00:00 IMPRESSION: NO SIGNIFICANT RADIOGRAPHIC FINDING IN THE CHEST. Qualifiers - * PATEINT BEING DISCHARGED WITH ANY OF THE FOLLOWING DIAGNOSIS?: No Plan Discharge Plan: Diabetic and cardiac diet, activity as tolerated, [facility]10 days.
[2017-09-30 12:19] VITALS: BP 113/54
--- NOTE | 2017-10-04 18:47 | PDOC CONSULTATION ---
Consultation Consult Date: 09/28/17 Attending physician:: PATRICK LR Consult reason:: dyspnea History of Present Illness Admission Date/PCP: 09/22/17 11:09 History of Present Illness: ADDIE STEWART is a 57 year old female admitted with COPD exacerbation secondary to pneumonia requiring prednisone. She admits to coughing green phlegm as well as nausea ,fever and chills.She denies hemoptysis;she states she is up to date influenza and pna vaccinations Past Medical History Cardiac Medical History: Reports: Hypertension Pulmonary Medical History: Reports: Asthma - Aspirin associated asthma, Chronic Obstructive Pulmonary Disease (COPD), Pneumonia EENT Medical History: Reports: None Endocrine Medical History: Reports: Diabetes Mellitus Type 2 Malignancy Medical History: Reports: None GI Medical History: Reports: None Musculoskeltal Medical History: Reports: None Skin Medical History: Reports: None Psychiatric Medical History: Denies: Depression Traumatic Medical History: Reports: None Hematology: Reports: None Infectious Medical History: Reports: None Past Surgical History Past Surgical History: Reports: None Social History Information Source: Patient, [facility] Records Lives with: Spouse/Significant other Smoking Status: Former Smoker Frequency of Alcohol Use: None Hx Recreational Drug Use: No Drugs: None Hx Prescription Drug Abuse: No - Advance Directive Resuscitation Status: Full Code Family History Family History: COPD, Hypertension Parental Family History Reviewed: Yes Children Family History Reviewed: Yes Sibling(s) Family History Reviewed.: Yes Medication/Allergy Home Medications: Budesonide/Formoterol Fumarate [Symbicort 160-4.5 Mcg Inhaler] 2 puff IH Q12 Diltiazem HCl [Cardizem LA] 240 mg PO Q12 09/22/17 Metformin HCl [Glucophage 500 mg Tablet] 500 mg PO Q12 09/22/17 Montelukast Sodium [Singulair 10 mg Tablet] 10 mg PO QHS 09/22/17 Prednisone [Deltasone 20 mg Tablet] 20 mg PO DAILY 09/22/17 Metformin HCl [Glucophage 500 mg Tablet] 1,000 mg PO BIDACBS #60 tablet Prednisone [Deltasone 20 mg Tablet] 20 mg PO BID 5 Days tablet 09/30/17 Allergies/Adverse Reactions: benzonatate [From Tesjacque Blanco] Allergy (Verified 04/07/17 10:11) NSAIDS (Non-Steroidal Anti-Inflamma Allergy (Verified 04/07/17 10:11) Review of Systems Constitutional: PRESENT: chills, fever(s). ABSENT: anorexia, headache(s), night sweats Eyes: ABSENT: visual disturbances Ears: ABSENT: hearing changes Nose, Mouth, and Throat: ABSENT: sore throat Cardiovascular: ABSENT: palpitations Respiratory: ABSENT: hemoptysis Neurological: ABSENT: abnormal gait, abnormal movements, abnormal speech, confusion, focal weakness, frequent falls, lack of coordination, memory loss Psychiatric: ABSENT: hallucinations, homidical ideation, suicidal ideation Endocrine: ABSENT: cold intolerance, heat intolerance, menstrual abnormalities, polydipsia, polyuria Hematologic/Lymphatic: ABSENT: easy bruising Physical Exam Vital Signs: Temp Pulse Resp BP Pulse Ox 98.6 F 93 17 142/71 H 97 09/28/17 19:49 09/28/17 19:49 09/28/17 19:49 09/28/17 19:49 09/28/17 19:49 Pulse Oximeter Continuous Start: 09/22/17 12: 05 Freq: RTQ4 Status: Active Document 09/28/17 16:33 LDA (Rec: 09/28/17 16:37 LDA [email or web address]) Pulse Oximetry Assessment Oxygen Saturation (92-100) 97 Oxygen Flow Rate (L/min) 2 Oxygen Delivery Method Nasal Cannula Fraction of Inspired Oxygen (FIO2) 28 Equipment Usage Equipment in Use Continuous SpO2 Machine # [id number] Intake & Output 09/27/17 09/28/17 09/29/17 06:59 06:59 06:59 Intake Total 7190 287 7268 Output Total 1500 1300 150 Balance -470 -380 1008 Weight 73.6 kg 73.1 kg General appearance: PRESENT: no acute distress, cooperative, disheveled Head exam: PRESENT: atraumatic, normocephalic Eye exam: PRESENT: conjunctiva pale, EOMI Mouth exam: PRESENT: dry mucosa, neck supple, tongue midline Neck exam: ABSENT: carotid bruit, JVD, lymphadenopathy, thyromegaly, tracheal deviation, tracheostomy Respiratory exam: PRESENT: decreased breath sounds, prolonged expiratory phas, rales, rhonchi, symmetrical, unlabored, wheezes. ABSENT: retraction, stridor, tachypnea Cardiovascular exam: PRESENT: RRR, +S1, +S2, tachycardia Pulses: PRESENT: normal radial pulses GI/Abdominal exam: PRESENT: diminished bowel sounds, soft Extremities exam: PRESENT: clubbing, joint swelling Musculoskeletal exam: ABSENT: deformity, dislocation Neurological exam: PRESENT: alert, awake Psychiatric exam: PRESENT: flat affect Skin exam: PRESENT: dry, warm Results Laboratory Results: 09/27/17 05:30 09/27/17 05:30 09/28/17 13:05 Carbonic Acid 1.19 HCO3/H2CO3 Ratio 22:1 ABG pH 7.44 ABG pCO2 39.6 ABG pO2 70.1 L ABG HCO3 26.2 H ABG O2 Saturation 94.7 ABG Base Excess 2.0 FiO2 21% 09/23/17 05:18 NT-Pro-B Natriuret Pep 60 Impressions: Chest X-Ray 09/27/17 00:00 IMPRESSION: NO SIGNIFICANT RADIOGRAPHIC FINDING IN THE CHEST. Assessment & Plan - Diagnosis (1) Acute exacerbation of chronic obstructive pulmonary disease (COPD) Is this a current diagnosis for this admission?: Yes Plan: frederick/lama (2) GERD (gastroesophageal reflux disease) Qualifiers: Esophagitis presence: without esophagitis Qualified Code(s): K21.9 - Gastro -esophageal reflux disease without esophagitis Is this a current diagnosis for this admission?: Yes Plan: ppi;elevated head of bed (3) Hypertension Qualifiers: Hypertension type: essential hypertension Qualified Code(s): I10 - Essential (primary) hypertension Is this a current diagnosis for this admission?: Yes Plan: stable
--- NOTE | 2017-10-04 18:50 | PDOC PROGRESS REPORT ---
Subjective Progress Note for:: 09/29/17 Subjective:: still coughing Reason For Visit: PNEUMONIA Physical Exam Vital Signs: Temp Pulse Resp BP Pulse Ox 97.8 F 117 H 18 113/54 L 95 09/30/17 12:17 09/30/17 12:17 09/30/17 12:17 09/30/17 12:17 09/30/17 12:17 Pulse Oximeter Continuous Start: 09/22/17 12: 05 Freq: RTQ4 Status: Complete Document 09/30/17 09:13 TPO (Rec: 09/30/17 09:24 TPO [email or web address]) Pulse Oximetry Assessment Oxygen Saturation (92-100) 95 Oxygen Delivery Method Room Air Fraction of Inspired Oxygen (FIO2) 21 Equipment Usage Equipment Discontinued Continuous SpO2 Machine # 13 Intake & Output 09/29/17 09/30/17 10/01/17 06:59 06:59 06:59 Intake Total 1604 1860 Output Total 750 1500 Balance 854 360 Weight 73.1 kg 73.1 kg General appearance: PRESENT: no acute distress, cooperative, disheveled Head exam: PRESENT: atraumatic, normocephalic Eye exam: PRESENT: conjunctiva pale, EOMI Mouth exam: PRESENT: dry mucosa, neck supple, tongue midline Neck exam: ABSENT: carotid bruit, JVD, lymphadenopathy, thyromegaly, tracheal deviation, tracheostomy Respiratory exam: PRESENT: decreased breath sounds, prolonged expiratory phas, rales, rhonchi, symmetrical, unlabored, wheezes. ABSENT: retraction, stridor, tachypnea Cardiovascular exam: PRESENT: RRR, +S1, +S2 Pulses: PRESENT: normal radial pulses GI/Abdominal exam: PRESENT: diminished bowel sounds, soft Extremities exam: ABSENT: clubbing, joint swelling Musculoskeletal exam: ABSENT: deformity, dislocation Neurological exam: PRESENT: alert, awake Psychiatric exam: PRESENT: flat affect Skin exam: PRESENT: dry, warm Results Laboratory Results: 09/29/17 06:54 09/29/17 06:54 09/23/17 05:18 NT-Pro-B Natriuret Pep 60 Impressions: Chest X-Ray 09/27/17 00:00 IMPRESSION: NO SIGNIFICANT RADIOGRAPHIC FINDING IN THE CHEST. Assessment & Plan - Diagnosis (1) Acute exacerbation of chronic obstructive pulmonary disease (COPD) Is this a current diagnosis for this admission?: Yes Plan: frederick/lama (2) GERD (gastroesophageal reflux disease) Qualifiers: Esophagitis presence: without esophagitis Qualified Code(s): K21.9 - Gastro -esophageal reflux disease without esophagitis Is this a current diagnosis for this admission?: Yes Plan: ppi;elevated head of bed (3) Hypertension Qualifiers: Hypertension type: essential hypertension Qualified Code(s): I10 - Essential (primary) hypertension Is this a current diagnosis for this admission?: Yes Plan: stable
--- NOTE | 2017-10-04 18:52 | PDOC PROGRESS REPORT ---
Subjective Progress Note for:: 09/30/17 Subjective:: improving Reason For Visit: PNEUMONIA Physical Exam Vital Signs: Temp Pulse Resp BP Pulse Ox 97.8 F 117 H 18 113/54 L 95 09/30/17 12:17 09/30/17 12:17 09/30/17 12:17 09/30/17 12:17 09/30/17 12:17 Pulse Oximeter Continuous Start: 09/22/17 12: 05 Freq: RTQ4 Status: Complete Document 09/30/17 09:13 TPO (Rec: 09/30/17 09:24 TPO [email or web address]) Pulse Oximetry Assessment Oxygen Saturation (92-100) 95 Oxygen Delivery Method Room Air Fraction of Inspired Oxygen (FIO2) 21 Equipment Usage Equipment Discontinued Continuous SpO2 Machine # 13 Intake & Output 09/29/17 09/30/17 10/01/17 06:59 06:59 06:59 Intake Total 1604 1860 Output Total 750 1500 Balance 854 360 Weight 73.1 kg 73.1 kg General appearance: PRESENT: no acute distress, cooperative, disheveled Head exam: PRESENT: atraumatic, normocephalic Eye exam: PRESENT: conjunctiva pale, EOMI Mouth exam: PRESENT: dry mucosa, neck supple, tongue midline Neck exam: ABSENT: carotid bruit, JVD, lymphadenopathy, thyromegaly, tracheal deviation, tracheostomy Respiratory exam: PRESENT: decreased breath sounds, prolonged expiratory phas, rales, rhonchi, symmetrical, unlabored. ABSENT: retraction, stridor, tachypnea Cardiovascular exam: PRESENT: RRR, +S1, +S2 Pulses: PRESENT: normal radial pulses GI/Abdominal exam: PRESENT: diminished bowel sounds, soft Extremities exam: ABSENT: clubbing, joint swelling Musculoskeletal exam: ABSENT: deformity, dislocation Neurological exam: PRESENT: alert, awake Psychiatric exam: PRESENT: normal mood Skin exam: PRESENT: dry, warm Results Laboratory Results: 09/29/17 06:54 09/29/17 06:54 09/23/17 05:18 NT-Pro-B Natriuret Pep 60 Impressions: Chest X-Ray 09/27/17 00:00 IMPRESSION: NO SIGNIFICANT RADIOGRAPHIC FINDING IN THE CHEST. Assessment & Plan - Diagnosis (1) Acute exacerbation of chronic obstructive pulmonary disease (COPD) Is this a current diagnosis for this admission?: Yes Plan: frederick/lama (2) GERD (gastroesophageal reflux disease) Qualifiers: Esophagitis presence: without esophagitis Qualified Code(s): K21.9 - Gastro -esophageal reflux disease without esophagitis Is this a current diagnosis for this admission?: Yes Plan: ppi;elevated head of bed (3) Hypertension Qualifiers: Hypertension type: essential hypertension Qualified Code(s): I10 - Essential (primary) hypertension Is this a current diagnosis for this admission?: Yes Plan: stable
== END 2017-09-30 12:49 | disposition home or self-care (01) | DRG 871 ==
LOC: ER 06:10 → EH 11:09 → 4S 16:14
PROVIDERS: ADMIT Emergency Medicine; ATTEND Emergency Medicine
PROC: 3E0F73Z Introduction of Anti-inflammatory into Respiratory Tract, Via Natural or Artificial Opening (ICD-10-PCS; principal; 2017-09-22)
DX: A41.9 Sepsis, unspecified organism (principal); J96.01 Acute respiratory failure with hypoxia; J12.9 Viral pneumonia, unspecified; J44.1 Chronic obstructive pulmonary disease with (acute) exacerbation; J44.0 Chronic obstructive pulmonary disease with (acute) lower respiratory infection; E11.9 Type 2 diabetes mellitus without complications; I10 Essential (primary) hypertension; K21.9 Gastro-esophageal reflux disease without esophagitis; E87.6 Hypokalemia; R19.7 Diarrhea, unspecified; Z79.899 Other long term (current) drug therapy; Z87.891 Personal history of nicotine dependence; Z88.6 Allergy status to analgesic agent; Z88.8 Allergy status to other drugs, medicaments and biological substances; Z79.52 Long term (current) use of systemic steroids; Z82.49 Family history of ischemic heart disease and other diseases of the circulatory system; Z83.6 Family history of other diseases of the respiratory system
CPT/HCPCS: 36415; 36600; 71045; 71046; 80048; 80053; 80202; 81001; 82550; 82803; 82962; 83605; 83735; 83880; 85025; 85027; 85610; 87040; 87086; 93005; 93010; 94640; 94762; 96361; 96365; 96367; 96375; 99285; J0456; J0696; J1650; J1815; J1956; J2185; J2405; J2920; J2930; J3370; J3490; J7030; J7060; J7512; J7620

== ENCOUNTER 2017-12-27 10:25 | Emergency (ER) | payer MEDICAID ==
[2017-12-27] MEDS ORDERED: ONDANSETRON 4 MG TAB.RAPDIS PO ONE (11:27)
--- NOTE | 2017-12-27 11:29 | ER Document Report ---
ED Medical Screen (RME) - General Chief Complaint: Abdominal Pain Stated Complaint: STOMACH PAIN, NAUSEA Time Seen by Provider: 12/27/17 11:20 Mode of Arrival: Ambulatory Information source: Patient Notes: 57-year-old female with hypertension, diabetes, COPD, coronary artery disease presents with complaint of 1 day of nausea without vomiting, diffuse abdominal pain and diarrhea. Patient's abdominal pain is described as cramping. She has had multiple episodes of loose stools without blood. She denies sick contacts, recent antibiotic use, recent travel. Patient has not taken anything for this. I have greeted and performed a rapid initial assessment of this patient. A comprehensive ED assessment and evaluation of the patient including analysis of labs and imaging ( if obtained) and completion of medical decision making will be conducted by an additional ED provider. PHYSICAL EXAMINATION: GENERAL: Well-appearing, well-nourished and in no acute distress. HEAD: Atraumatic, normocephalic. EYES: Pupils equal round extraocular movements intact, conjunctiva are normal. ENT: Nares patent NECK: Normal range of motion LUNGS: No respiratory distress Musculoskeletal: Normal range of motion NEUROLOGICAL: Normal speech, normal gait. PSYCH: Normal mood, normal affect. SKIN: Warm, Dry, normal turgor, no rashes or lesions noted. TRAVEL OUTSIDE OF THE [place] IN LAST 30 DAYS: No - Related Data Allergies/Adverse Reactions: benzonatate [From Wes Londonojoe] Allergy (Verified 12/27/17 10:27) NSAIDS (Non-Steroidal Anti-Inflamma Allergy (Verified 12/27/17 10:27) Past Medical History - Social History Chew tobacco use (# tins/day): No Frequency of alcohol use: None Drug Abuse: None - Past Medical History Cardiac Medical History: Reports: Hx Hypertension Pulmonary Medical History: Reports: Hx Asthma - Aspirin associated asthma, Hx COPD, Hx Pneumonia Endocrine Medical History: Reports: Hx Diabetes Mellitus Type 2 Renal/ Medical History: Denies: Hx Peritoneal Dialysis Psychiatric Medical History: Denies: Hx Depression - Immunizations Hx Diphtheria, Pertussis, Tetanus Vaccination: Yes History of Influenza Vaccine for 04/2017 - 09/2017 Season: Yes Influenza Administration Date for 04/2017 - 09/2017 Season: 04/12/17 Physical Exam - Vital signs Vitals: Temp Pulse Resp BP Pulse Ox 97.7 F 115 H 18 139/93 H 96 12/27/17 10:34 12/27/17 10:34 12/27/17 10:34 12/27/17 10:34 12/27/17 10:34 Course - Vital Signs Vital signs: Temp Pulse Resp BP Pulse Ox 97.7 F 115 H 18 139/93 H 96 12/27/17 10:34 12/27/17 10:34 12/27/17 10:34 12/27/17 10:34 12/27/17 10:34
[2017-12-27] MEDS ORDERED: NORMAL SALINE 1000 ML 1,000 ML IV ONE (11:30)
[2017-12-27 11:56] LABS: ABSOLUTE EOSINOPHILS # (AUTO) 0.1 10^3/uL (0.0-0.6); ABSOLUTE LYMPHOCYTES (AUTO) 2.2 10^3/uL (0.5-4.7); ABSOLUTE MONOCYTES (AUTO) 0.6 10^3/uL (0.1-1.4); ABSOLUTE NEUT (AUTO) 5.5 10^3/uL (1.7-8.2); BASOPHILS % (AUTO) 0.6 % (0-2); EOSINOPHILS % (AUTO) 1.5 % (0-6); HEMATOCRIT 40.4 % (36.0-47.0); HEMOGLOBIN 13.4 g/dL (12.0-15.5); LYMPHOCYTES % (AUTO) 26.1 % (13-45); MEAN CORPUSCULAR HEMOGLOBIN 25.5 pg (27.0-33.4); MEAN CORPUSCULAR HGB CONC 33.1 g/dL (32.0-36.0); MEAN CORPUSCULAR VOLUME 77 fl (80-97); MONOCYTES % (AUTO) 6.8 % (3-13); PLATELET COUNT 398 10^3/uL (150-450); RED BLOOD COUNT 5.26 10^6/uL (3.72-5.28); RED CELL DISTRIBUTION WIDTH 15.1 % (11.5-14.0); TOTAL CELLS COUNTED % (AUTO) 100 %; WHITE BLOOD COUNT 8.5 10^3/uL (4.0-10.5)
[2017-12-27 12:03] LABS: APPEARANCE,URINE SLIGHTLY-CLOUDY; BILIRUBIN,URINE NEGATIVE (NEGATIVE); COLOR,URINE YELLOW; GLUCOSE, URINE 50 mg/dL (NEGATIVE); KETONES,URINE 20 mg/dL (NEGATIVE); LEUKOCYTE ESTERASE,URINE SMALL (NEGATIVE); NITRITE,URINE NEGATIVE (NEGATIVE); PROTEIN,URINE NEGATIVE (NEGATIVE); URINE SPECIFIC GRAVITY 1.014; UROBILINOGEN,URINE NEGATIVE mg/dL (<2.0)
[2017-12-27 12:16] LABS: ALANINE AMINOTRANSFERASE 52 U/L (9-52); ALBUMIN 4.3 g/dL (3.5-5.0); ALKALINE PHOSPHATASE 95 U/L (38-126); ANION GAP 13 (5-19); ASPARTATE AMINO TRANSFERASE 33 U/L (14-36); BILIRUBIN,DIRECT 0.2 mg/dL (0.0-0.4); BILIRUBIN,TOTAL 0.5 mg/dL (0.2-1.3); BLOOD UREA NITROGEN 8 mg/dL (7-20); CARBON DIOXIDE 28 mmol/L (22-30); CHLORIDE 104 mmol/L (98-107); CREATINE KINASE 63 U/L (30-135); GLUCOSE 136 mg/dL (75-110); LIPASE 106.3 U/L (23-300); POTASSIUM 3.4 mmol/L (3.6-5.0); SODIUM 145.3 mmol/L (137-145); TOTAL PROTEIN 7.4 g/dL (6.3-8.2)
[2017-12-27 12:26] LABS: CREATINE KINASE MB 0.45 ng/mL (<4.55)
[2017-12-27 12:32] LABS: TROPONIN I < 0.012 ng/mL
[2017-12-27] MEDS ORDERED: POTASSIUM CHLORIDE 10 MEQ TABLET.SA PO ONE (13:53)
--- NOTE | 2017-12-27 13:53 | ER Document Report ---
ED GI/ - General Chief Complaint: Abdominal Pain Stated Complaint: STOMACH PAIN, NAUSEA Time Seen by Provider: 12/27/17 11:20 Mode of Arrival: Ambulatory Information source: Patient Notes: Patient presents complaining of abdominal pain that started yesterday with nausea and diarrhea. Patient describes pain as cramping sensation. Patient does report some nasal congestion as well. Patient denies any fever. TRAVEL OUTSIDE OF THE [place] IN LAST 30 DAYS: No - HPI Patient complains to provider of: Abdominal pain, Diarrhea, Other - Nausea Onset: Yesterday Timing/Duration: Gradual Quality of pain: Cramping Pain Level: 3 Location: Other - Periumbilical Vaginal bleeding (Compared to normal period): None Associated symptoms: Diarrhea, Nausea. denies: Blood in emesis, Blood in stool , Loss of appetite, Urinary hesitancy, Vaginal discharge, Vomiting Exacerbated by: Denies Relieved by: Denies Similar symptoms previously: No Recently seen / treated by doctor: No - Related Data Allergies/Adverse Reactions: benzonatate [From Hemarinajacque Blanco] Allergy (Verified 12/27/17 10:27) NSAIDS (Non-Steroidal Anti-Inflamma Allergy (Verified 12/27/17 10:27) Past Medical History - General Information source: Patient - Social History Smoking Status: Never Smoker Chew tobacco use (# tins/day): No Frequency of alcohol use: None Drug Abuse: None Occupation: None Lives with: Family Family History: COPD, Hypertension Patient has suicidal ideation: No Patient has homicidal ideation: No - Past Medical History Cardiac Medical History: Reports: Hx Hypertension Pulmonary Medical History: Reports: Hx Asthma - Aspirin associated asthma, Hx COPD, Hx Pneumonia Endocrine Medical History: Reports: Hx Diabetes Mellitus Type 2 Renal/ Medical History: Denies: Hx Peritoneal Dialysis Psychiatric Medical History: Denies: Hx Depression Surgical Hx: Negative - Immunizations Hx Diphtheria, Pertussis, Tetanus Vaccination: Yes Review of Systems - Review of Systems Constitutional: No symptoms reported. denies: Fever EENT: No symptoms reported Cardiovascular: No symptoms reported. denies: Chest pain Respiratory: No symptoms reported. denies: Cough, Short of breath Gastrointestinal: Abdominal pain, Diarrhea, Nausea. denies: Vomiting Genitourinary: No symptoms reported. denies: Dysuria, Flank pain Female Genitourinary: No symptoms reported Musculoskeletal: No symptoms reported. denies: Back pain Skin: No symptoms reported Hematologic/Lymphatic: No symptoms reported Neurological/Psychological: No symptoms reported Physical Exam - Vital signs Vitals: Temp Pulse Resp BP Pulse Ox 97.7 F 115 H 18 139/93 H 96 12/27/17 10:34 12/27/17 10:34 12/27/17 10:34 12/27/17 10:34 12/27/17 10:34 - General General appearance: Appears well, Alert In distress: None - HEENT Head: Normocephalic Eyes: Normal Conjunctiva: Normal Nasal: Normal Mouth/Lips: Normal Mucous membranes: Normal Pharynx: Normal Neck: Normal, Supple. No: Lymphadenopathy - Respiratory Respiratory status: No respiratory distress Chest status: Nontender Breath sounds: Normal. No: Rales, Rhonchi, Stridor, Wheezing Chest palpation: Normal - Cardiovascular Rhythm: Tachycardia Heart sounds: S1 appreciated, S2 appreciated Murmur: No - Abdominal Inspection: Normal Distension: No distension Bowel sounds: Normal Tenderness: Tender - Periumbilical, Guarding Organomegaly: No organomegaly - Back Back: Normal, Nontender. No: CVA tenderness, Vertebra tenderness - Extremities General upper extremity: Normal inspection, Nontender, Normal ROM General lower extremity: Normal inspection, Nontender, Normal ROM - Neurological Neuro grossly intact: Yes Cognition: Normal Sandy Coma Scale Eye Opening: Spontaneous Sandy Coma Scale Verbal: Oriented Sandy Coma Scale Motor: Obeys Commands Ramsey Coma Scale Total: 15 - Psychological Associated symptoms: Normal affect, Normal mood - Skin Skin Temperature: Warm Skin Moisture: Dry Skin Color: Normal Course - Re-evaluation Re-evalutation: 12/27/17 13:56 On reexamination patient continues with periumbilical tenderness and guarding with palpation. 12/27/17 16:00 Patient's abdomen soft, no guarding. Patient reports mild tenderness. CT scan reviewed, no concern for appendicitis, diverticulitis or any ischemic bowel syndrome. Patient nontoxic in appearance. Patient without any additional diarrhea symptoms. Patient advised of CT report findings and advised of renal as well as hepatic cysts. Patient encouraged to follow-up with her primary doctor for further evaluation of these findings. Patient presents with abdominal pain without signs of peritonitis or other life-threatening or serious etiology. Patient appears stable for discharge and has been instructed to return immediately if the symptoms worsen in any way, or in 8-12 hours if not improved for reevaluation. The patient has been instructed to return if the symptoms worsen or change in any way. - Vital Signs Vital signs: Temp Pulse Resp BP Pulse Ox 98.3 F 115 H 18 126/81 H 96 12/27/17 16:22 12/27/17 16:22 12/27/17 16:22 12/27/17 16:22 12/27/17 16:22 - Laboratory Result Diagrams: 12/27/17 11:40 12/27/17 11:40 Laboratory results interpreted by me: 12/27/17 12/27/17 12/27/17 11:40 11:40 11:40 MCV 77 L MCH 25.5 L RDW 15.1 H Sodium 145.3 H Potassium 3.4 L Glucose 136 H Urine Glucose (UA) 50 H Urine Ketones 20 H Urine Blood SMALL H Ur Leukocyte Esterase SMALL H 12/27/17 16:02 Labs- Entire Visit 12/27/17 12/27/17 12/27/17 11:40 11:40 11:40 WBC 8.5 RBC 5.26 Hgb 13.4 Hct 40.4 MCV 77 L MCH 25.5 L MCHC 33.1 RDW 15.1 H Plt Count 398 Seg Neutrophils % 65.0 Lymphocytes % 26.1 Monocytes % 6.8 Eosinophils % 1.5 Basophils % 0.6 Absolute Neutrophils 5.5 Absolute Lymphocytes 2.2 Absolute Monocytes 0.6 Absolute Eosinophils 0.1 Absolute Basophils 0.0 Sodium 145.3 H Potassium 3.4 L Chloride 104 Carbon Dioxide 28 Anion Gap 13 BUN 8 Creatinine 0.63 Est GFR ( Amer) > 60 Est GFR (Non-Af Amer) > 60 Glucose 136 H Lactic Acid 1.0 Calcium 10.0 Total Bilirubin 0.5 Direct Bilirubin 0.2 Neonat Total Bilirubin Not Reportable Neonat Direct Bilirubin Not Reportable Neonat Indirect Bili Not Reportable AST 33 ALT 52 Alkaline Phosphatase 95 Creatine Kinase 63 CK-MB (CK-2) Troponin I Total Protein 7.4 Albumin 4.3 Lipase 106.3 Urine Color Urine Appearance Urine pH Ur Specific [place] Urine Protein Urine Glucose (UA) Urine Ketones Urine Blood Urine Nitrite Urine Bilirubin Urine Urobilinogen Ur Leukocyte Esterase Urine WBC (Auto) Urine RBC (Auto) U Hyaline Cast (Auto) Urine Bacteria (Auto) Squamous Epi Cells Auto Urine Mucus (Auto) Urine Ascorbic Acid 12/27/17 12/27/17 11:40 11:40 WBC RBC Hgb Hct MCV MCH MCHC RDW Plt Count Seg Neutrophils % Lymphocytes % Monocytes % Eosinophils % Basophils % Absolute Neutrophils Absolute Lymphocytes Absolute Monocytes Absolute Eosinophils Absolute Basophils Sodium Potassium Chloride Carbon Dioxide Anion Gap BUN Creatinine Est GFR ( Amer) Est GFR (Non-Af Amer) Glucose Lactic Acid Calcium Total Bilirubin Direct Bilirubin Neonat Total Bilirubin Neonat Direct Bilirubin Neonat Indirect Bili AST ALT Alkaline Phosphatase Creatine Kinase CK-MB (CK-2) 0.45 Troponin I < 0.012 Total Protein Albumin Lipase Urine Color YELLOW Urine Appearance SLIGHTLY-CLOUDY Urine pH 6.0 Ur Specific [place] 1.014 Urine Protein NEGATIVE Urine Glucose (UA) 50 H Urine Ketones 20 H Urine Blood SMALL H Urine Nitrite NEGATIVE Urine Bilirubin NEGATIVE Urine Urobilinogen NEGATIVE Ur Leukocyte Esterase SMALL H Urine WBC (Auto) 3 Urine RBC (Auto) 2 U Hyaline Cast (Auto) 1 Urine Bacteria (Auto) TRACE Squamous Epi Cells Auto 6 Urine Mucus (Auto) MANY Urine Ascorbic Acid NEGATIVE - Diagnostic Test Radiology reviewed: Reports reviewed Discharge - Discharge Clinical Impression: Rhinorrhea, Nausea Diarrhea Qualifiers: Diarrhea type: unspecified type Qualified Code(s): R19.7 - Diarrhea, unspecified Abdominal pain Qualifiers: Abdominal location: periumbilical Qualified Code(s): R10.33 - Periumbilical pain Condition: Stable Disposition: HOME, SELF-CARE Instructions: Abdominal Pain ([facility]), Antispasmodics ([facility]), Diarrhea, Nonspecific ([facility]) Additional Instructions: Return immediately for any new or worsening symptoms Followup with your primary care provider, call tomorrow to make a followup appointment Your potassium level was mildly decreased today. Your primary doctor can recheck this test for you. Your CT scan showed that you had some cysts on your liver as well as your kidney. Primary doctor can make referrals to follow-up these findings. Urine culture is pending, we will call if you need any different treatment. Prescriptions: Dicyclomine HCl [Bentyl 20 mg Tablet] 20 mg PO QID PRN #12 tablet PRN Reason: Ondansetron HCl [Zofran 4 mg Tablet] 1 tab PO Q6 PRN #12 tablet PRN Reason: Referrals: ESVIN RIVERA PA-C [Primary Care Provider] - Follow up as needed ALEX,CLAUDIA, DO [NO LOCAL MD] - Follow up tomorrow
--- NOTE | 2017-12-27 15:05 | RADIOLOGY REPORT (SQ) ---
EXAM DESCRIPTION: CT ABD/PELVIS WITH IV ONLY COMPLETED DATE/TIME: 12/27/2017 2:31 pm REASON FOR STUDY: periumbilical abd pain COMPARISON: 01/23/2017 TECHNIQUE: CT scan of the abdomen and pelvis performed using helical scanning technique with dynamic intravenous contrast injection. No oral contrast. Images reviewed with lung, soft tissue, and bone windows. Reconstructed coronal and sagittal MPR images reviewed. Delayed images for evaluation of the urinary system also acquired. All images stored on PACS. All CT scanners at this facility use dose modulation, iterative reconstruction, and/or weight based d osing when appropriate to reduce radiation dose to as low as reasonably achievable (ALARA). [facility]: Dose Right [facility]: CareDose [facility]: Dose Right [facility]: Teradose 4D [facility]: Stackdriver CONTRAST TYPE AND DOSE: contrast/concentration: Isovue 370.00 mg/ml; Total Contrast Delivered: 81.0 ml; Total Saline Delivered: 68.0 ml RENAL FUNCTION: BUN 8; creatinine 0.63 RADIATION DOSE: CT Rad equipment meets quality standard of care and radiation dose reduction techniq ues were employed. CTDIvol: 8.0 - 11.1 mGy. DLP: 972 mGy-cm.. LIMITATIONS: None. FINDINGS: LOWER CHEST: No significant findings. No nodules or infiltrates. LIVER: Stable CT appearance of the liver demonstrating multiple cysts, the largest of which measures 5.3 cm. No masses. Normal size. No dilated ducts. SPLEEN: Normal size. No focal lesions. PANCREAS: No masses. No significant calcifications. No adjacent inflammation or peripancreatic fluid collections. Pancreatic duct not dilated. GALLBLADDER: No identified stones by CT criteria. No inflammatory changes to suggest cholecystitis. ADRENAL GLANDS: No significant masses or asymmetry. RIGHT KIDNEY AND URETER: Stable appearance of a 3.1 cm simple cyst emanating from the inferior pole. No solid masses. No significant calcifications. No hydronephrosis or hydroureter. LEFT KIDNEY AND URETER: No solid masses. No significant calcifications. No hydronephrosis or hydr oureter. AORTA AND VESSELS: No aneurysm. No dissection. Renal arteries, SMA, celiac without stenosis. RETROPERITONEUM: No retroperitoneal adenopathy, hemorrhage or masses. BOWEL AND PERITONEAL CAVITY: Few scattered colonic diverticula. No masses or inflammatory changes. N o free fluid or peritoneal masses. APPENDIX: Normal. PELVIS: No mass. No free fluid. Normal bladder. ABDOMINAL WALL: No masses. No hernias. BONES: No significant or acute findings. OTHER: No other significant finding. IMPRESSION: Stable CT appearance of the abdomen and pelvis. No findings to correlate to the patient 's reported periumbilical pain. TECHNICAL DOCUMENTATION: JOB ID: [id number] Quality ID # [id number]: Final reports with documentation of one or more dose reduction techniques (e.g., Au tomated exposure control, adjustment of the mA and/or kV according to patient size, use of iterative reconstruction technique) 2010 [employer]- All Rights Reserved Reading location - IP/workstation name: [email or web address]
--- NOTE | 2017-12-27 15:52 | EKG REPORT ---
SEVERITY:- ABNORMAL ECG - SINUS TACHYCARDIA CHARLES, CONSIDER BIATRIAL ABNORMALITIES : Confirmed by: Raman Hernandez MD 27-Dec-2017 15:51:36
[2017-12-27 16:24] VITALS: BP 126/81
== END 2017-12-27 16:30 | disposition home or self-care (01) ==
LOC: ER 10:25
DX: R11.0 Nausea (principal); R19.7 Diarrhea, unspecified; R10.33 Periumbilical pain; J34.89 Other specified disorders of nose and nasal sinuses; I10 Essential (primary) hypertension; E11.9 Type 2 diabetes mellitus without complications
CPT/HCPCS: 93005; 99284; 36415; 87086; 82553; 82550; 83605; 83690; 85025; 80053; 81001; 84484; 74177; 93010; S0119; J7030

== ENCOUNTER 2017-12-30 22:59 | Emergency (ER) | payer MEDICAID ==
[2017-12-30 23:29] LABS: ABSOLUTE EOSINOPHILS # (AUTO) 0.2 10^3/uL (0.0-0.6); ABSOLUTE LYMPHOCYTES (AUTO) 2.1 10^3/uL (0.5-4.7); ABSOLUTE MONOCYTES (AUTO) 0.6 10^3/uL (0.1-1.4); ABSOLUTE NEUT (AUTO) 6.6 10^3/uL (1.7-8.2); BASOPHILS % (AUTO) 0.5 % (0-2); EOSINOPHILS % (AUTO) 1.7 % (0-6); HEMATOCRIT 36.7 % (36.0-47.0); HEMOGLOBIN 12.6 g/dL (12.0-15.5); LYMPHOCYTES % (AUTO) 21.9 % (13-45); MEAN CORPUSCULAR HEMOGLOBIN 26.1 pg (27.0-33.4); MEAN CORPUSCULAR HGB CONC 34.4 g/dL (32.0-36.0); MEAN CORPUSCULAR VOLUME 76 fl (80-97); MONOCYTES % (AUTO) 6.5 % (3-13); PLATELET COUNT 405 10^3/uL (150-450); RED BLOOD COUNT 4.84 10^6/uL (3.72-5.28); RED CELL DISTRIBUTION WIDTH 14.7 % (11.5-14.0); SEGMENTED NEUTROPHILS % (AUTO) 69.4 % (42-78); TOTAL CELLS COUNTED % (AUTO) 100 %; WHITE BLOOD COUNT 9.5 10^3/uL (4.0-10.5)
[2017-12-30 23:41] LABS: ALANINE AMINOTRANSFERASE 37 U/L (9-52); ALBUMIN 3.9 g/dL (3.5-5.0); ALKALINE PHOSPHATASE 80 U/L (38-126); ANION GAP 13 (5-19); ASPARTATE AMINO TRANSFERASE 19 U/L (14-36); BILIRUBIN,DIRECT 0.3 mg/dL (0.0-0.4); BILIRUBIN,TOTAL 0.6 mg/dL (0.2-1.3); BLOOD UREA NITROGEN 12 mg/dL (7-20); CALCIUM 9.5 mg/dL (8.4-10.2); CARBON DIOXIDE 25 mmol/L (22-30); CHLORIDE 102 mmol/L (98-107); GLUCOSE 158 mg/dL (75-110); LIPASE 86.8 U/L (23-300); POTASSIUM 3.2 mmol/L (3.6-5.0); SODIUM 139.6 mmol/L (137-145); TOTAL PROTEIN 6.7 g/dL (6.3-8.2)
[2017-12-30 23:52] LABS: APPEARANCE,URINE CLOUDY; COLOR,URINE LIGHT YELLOW; GLUCOSE, URINE NEGATIVE (NEGATIVE)
[2017-12-30 23:53] LABS: BILIRUBIN,URINE NEGATIVE (NEGATIVE); KETONES,URINE 100 mg/dL (NEGATIVE); NITRITE,URINE NEGATIVE (NEGATIVE); PROTEIN,URINE 30 mg/dL (NEGATIVE); URINE SPECIFIC GRAVITY 1.015; UROBILINOGEN,URINE NEGATIVE mg/dL (<2.0)
[2017-12-30 23:54] LABS: LEUKOCYTE ESTERASE,URINE LARGE (NEGATIVE)
--- NOTE | 2017-12-31 00:22 | ER Document Report ---
ED GI/ - General Mode of Arrival: Ambulatory Information source: Patient TRAVEL OUTSIDE OF THE [place] IN LAST 30 DAYS: No <LENNIE ROWLEY - Last Filed: 12/31/17 00:23> <SON BUNCH - Last Filed: 12/31/17 04:39> - General Chief Complaint: Abdominal Pain Stated Complaint: ABDOMINAL PAIN Time Seen by Provider: 12/31/17 00:08 Notes: Patient is a 57 year old female with COPD, hypertension and type 2 diabetes presents to the emergency department complaining of diffuse abdominal pain and congestion onset 5 days ago. Patient states she came to the emergency department 3 days ago complaining of similar problems and had a negative CT scan. Patient states she saw her medical doctor who prescribed a Zpack to help with her symptoms. At bedside, patient states the pain has not gone away. She denies any fevers. (LENNIE ROWLEY) Patient reports she was weaned off of chronic prednisone for her COPD sometime last month. (SON BUNCH) - Related Data Allergies/Adverse Reactions: benzonatate [From Tessalon Perljoe] Allergy (Verified 12/27/17 10:27) NSAIDS (Non-Steroidal Anti-Inflamma Allergy (Verified 12/27/17 10:27) Past Medical History - General Information source: Patient - Social History Smoking Status: Unknown if Ever Smoked Family History: COPD, Hypertension - Past Medical History Cardiac Medical History: Reports: Hx Hypertension Pulmonary Medical History: Reports: Hx Asthma - Aspirin associated asthma, Hx COPD, Hx Pneumonia Endocrine Medical History: Reports: Hx Diabetes Mellitus Type 2 - Immunizations Hx Diphtheria, Pertussis, Tetanus Vaccination: Yes <LENNIE ROWLEY - Last Filed: 12/31/17 00:23> Review of Systems - Review of Systems Constitutional: No symptoms reported EENT: See HPI Cardiovascular: No symptoms reported Respiratory: No symptoms reported Gastrointestinal: See HPI Genitourinary: No symptoms reported Female Genitourinary: No symptoms reported Musculoskeletal: No symptoms reported Skin: No symptoms reported Hematologic/Lymphatic: No symptoms reported Neurological/Psychological: No symptoms reported -: Yes All other systems reviewed and negative <LENNIE ROWLEY - Last Filed: 12/31/17 00:23> Physical Exam - General General appearance: Appears well, Alert, Other - Shivering at bedside In distress: None - HEENT Head: Normocephalic, Atraumatic Eyes: Normal Conjunctiva: Normal Extraocular movements intact: Yes Pupils: PERRL Neck: Normal - Respiratory Respiratory status: No respiratory distress Chest status: Nontender Breath sounds: Wheezing Chest palpation: Normal - Cardiovascular Rhythm: Regular Heart sounds: Normal auscultation Murmur: No Friction rub: No Gallop: None auscultated - Abdominal Inspection: Normal Distension: No distension Bowel sounds: Normal Tenderness: Tender - Tender to palpation to the epigastrium and across upper abdomen above the umbilicus. Organomegaly: No organomegaly - Back Back: Normal - Extremities General upper extremity: Normal ROM General lower extremity: Normal ROM - Neurological Neuro grossly intact: Yes Cognition: Normal Orientation: AAOx4 [place] Coma Scale Eye Opening: Spontaneous [place] Coma Scale Verbal: Oriented [place] Coma Scale Motor: Obeys Commands [place] Coma Scale Total: 15 Speech: Normal - Psychological Associated symptoms: Normal affect, Normal mood - Skin Skin Temperature: Warm Skin Moisture: Dry Skin Color: Normal <LENNIE ROWLEY - Last Filed: 12/31/17 00:23> <SON BUNCH - Last Filed: 12/31/17 04:39> - Vital signs Vitals: Temp Pulse Resp BP Pulse Ox 98.9 F 115 H 20 128/75 H 92 12/30/17 23:12 12/30/17 23:12 12/30/17 23:12 12/30/17 23:12 12/30/17 23:12 - Notes Notes: When I first examined the patient, she had shaking chills. There was some wheezes and rhonchi that was predominantly in the left chest. She did seem to be a little tachypnea, however she stated her breathing felt normal for her at the time. She does do nebulizer treatments at home. She further reports that she was tapered off of chronic prednisone last month by her pulmonary medicine doctor. Patient was seen here 3 days ago with nausea vomiting diarrhea and abdominal pain. She had a CT scan of the abdomen and pelvis with IV contrast only, and lab work that was all unremarkable. She was discharged home with Bentyl and Zofran. She reports that neither of these medicines made any difference in her symptoms. While she was here in the emergency room she had at least 3 episodes of diarrhea which she describes as a light brown. She was given a GI cocktail which relieved the epigastric upper abdominal pain symptoms for a while. Later the symptoms returned along with nausea and vomiting, she was given another GI cocktail and Reglan IV. She states the Reglan seemed to help the nausea much more than the Zofran she had been given previously. (SON BUNCH) Course - Laboratory Result Diagrams: 12/30/17 23:15 12/30/17 23:15 <LENNIE ROWLEY - Last Filed: 12/31/17 00:23> - Laboratory Result Diagrams: 12/30/17 23:15 12/30/17 23:15 <SON BNUCH - Last Filed: 12/31/17 04:39> - Re-evaluation Re-evalutation: 12/31/17 02:54 Patient reports the GI cocktail did make her upper abdomen feel better for a while. It is starting to hurt again now. She reports she has had nausea and vomiting since she had the GI cocktail, and just came back from the restroom where she had a diarrheal stool. She does seem to be a little tachypnea, but states that her breathing feels normal for her at this time. We will give her some Reglan and repeat the GI cocktail and then recheck her. ( SON BUNCH) - Vital Signs Vital signs: Temp Pulse Resp BP Pulse Ox 97.9 F 105 H 20 129/62 H 91 L 12/31/17 01:20 12/31/17 01:20 12/31/17 01:20 12/31/17 01:20 12/31/17 01:20 - Laboratory Laboratory results interpreted by me: 12/30/17 12/30/17 12/30/17 23:15 23:15 23:15 MCV 76 L MCH 26.1 L RDW 14.7 H Potassium 3.2 L Glucose 158 H Urine Protein 30 H Urine Ketones 100 H Ur Leukocyte Esterase LARGE H Discharge <LENNIE ROWLEY - Last Filed: 12/31/17 00:23> <SON BUNCH - Last Filed: 12/31/17 04:39> - Discharge Clinical Impression: Nausea, vomiting and diarrhea, Epigastric abdominal pain Condition: Stable Disposition: HOME, SELF-CARE Additional Instructions: Gastroenteritis You most likely have gastroenteritis. This is an irritation of the stomach and intestinal tract. It's usually caused by a virus, but can also be caused by bacteria, toxins that cause food poisoning, or excessive alcohol intake. Symptoms may include fever, painful abdominal cramps, nausea, vomiting , and diarrhea. Start with small amounts (two to six ounces) of clear liquids (soft drinks , herb teas, broth, etc). Try to take fluids frequently even if you are vomiting, to prevent dehydration. When liquids are being consumed successfully , advance to small amounts of bland food (mashed potato, toast) for 6 - 12 hours. Gastroenteritis rarely requires medication. It goes away by itself. Use good handwashing so you don't spread germs. Wash underwear in very hot water. If symptoms are severe, talk to the doctor. Call your physician if blood appears in your vomitus or stool, if vomiting lasts longer than 24 hours, if the abdominal pain worsens or becomes localized to one area, or if you develop high fever. Take the Reglan as prescribed for nausea if needed. Drink plenty of cool clear liquids. Take antacids such as Tums, or Maalox or Mylanta every few hours. Collect a stool specimen and return it to the lab. Follow-up with your primary care provider in the next 1-2 days for recheck. RETURN TO THE EMERGENCY ROOM IF ANY NEW OR WORSENING SYMPTOMS. Prescriptions: Metoclopramide HCl [Reglan 10 mg Tablet] 1 - 2 tab PO ASDIR PRN #25 tablet PRN Reason: Forms: Follow-Up Laboratory Testing Referrals: ESVIN RIVERA PA-C [Primary Care Provider] - Follow up tomorrow Scribe Attestation: 12/31/17 01:42 I personally performed the services described in the documentation, reviewed and edited the documentation which was dictated to the scribe in my presence, and it accurately records my words and actions. (SON BUNCH) Scribe Documentation - Scribe Written by Kimberly:: Kimberly Sweeney, 12/31/2017 00:29 acting as scribe for :: Nuris <LENNIE ROWLEY - Last Filed: 12/31/17 00:23>
[2017-12-31] MEDS ORDERED: LIDOCAINE 2% VISCOUS SOLN 20 ML UDCUP PO ONE ×2 (00:24→02:53)
[2017-12-31] MEDS ORDERED: MAG HYDROX/AL HYDROX/SIMETH SUSP 30 ML UDCUP PO ONE ×2 (00:24→02:53)
[2017-12-31] MEDS ORDERED: ACETAMINOPHEN 325 MG TABLET PO ONE (00:25)
[2017-12-31] MEDS ORDERED: METOCLOPRAMIDE HCL INJ/PF 10 MG/2 ML SDV IV ONE (02:52)
[2017-12-31] MEDS ORDERED: IPRATROPIUM/ALBUTEROL 0.5-2.5 MG/3 ML AMPUL NEB ONE ×2 (03:19)
[2017-12-31 05:10] VITALS: BP 138/85
== END 2017-12-31 04:55 | disposition home or self-care (01) ==
LOC: ER 22:59
DX: R10.13 Epigastric pain (principal); R68.83 Chills (without fever); R19.7 Diarrhea, unspecified; R11.2 Nausea with vomiting, unspecified; J44.9 Chronic obstructive pulmonary disease, unspecified; I10 Essential (primary) hypertension; E11.9 Type 2 diabetes mellitus without complications; Z88.8 Allergy status to other drugs, medicaments and biological substances
CPT/HCPCS: 94640; 99284; 96374; 36415; 83690; 85025; 80053; 81001; J3490 ×3; J2765; J7620

== ENCOUNTER 2018-01-16 02:34 | Inpatient (IN) | payer MEDICAID ==
[2018-01-16] MEDS ORDERED: IPRATROPIUM/ALBUTEROL 0.5-2.5 MG/3 ML AMPUL NEB ONE (04:16)
--- NOTE | 2018-01-16 04:20 | ER Document Report ---
ED General - General Chief Complaint: Shortness Of Breath Stated Complaint: DIFFICULTY BREATHING Time Seen by Provider: 01/16/18 04:13 Notes: Patient is a pleasant 57-year-old female with a history of asthma and COPD. She quit smoking 25 years ago. She presents with complaint of difficulty breathing wheezing. She says is been intermittent for a week but has become much worse last few days. No fevers. No vomiting. No chest pain but does feel some tightness throughout her lungs. She says she has been using her Blazer at home but has not been helping. No other complaints at this time. She says she is not currently on steroids. She said her doctor weaned her off steroids about 2 weeks ago. She is a diabetic. She says her blood sugars today were around 150. TRAVEL OUTSIDE OF THE [place] IN LAST 30 DAYS: No - Related Data Allergies/Adverse Reactions: benzonatate [From TessaliSyndica] Allergy (Verified 12/27/17 10:27) NSAIDS (Non-Steroidal Anti-Inflamma Allergy (Verified 12/27/17 10:27) Past Medical History - Social History Smoking Status: Former Smoker Frequency of alcohol use: None Drug Abuse: None Family History: COPD, Hypertension - Past Medical History Cardiac Medical History: Reports: Hx Hypertension Pulmonary Medical History: Reports: Hx Asthma - Aspirin associated asthma, Hx COPD, Hx Pneumonia Endocrine Medical History: Reports: Hx Diabetes Mellitus Type 2 Renal/ Medical History: Denies: Hx Peritoneal Dialysis Psychiatric Medical History: Denies: Hx Depression - Immunizations Hx Diphtheria, Pertussis, Tetanus Vaccination: Yes Review of Systems - Review of Systems Notes: My Normal Review Basic REVIEW OF SYSTEMS: CONSTITUTIONAL : Denies fever, chills, or sweats. Denies recent illness. EENT: Denies eye, ear, throat, or mouth pain or symptoms. Denies nasal or sinus congestion. CARDIOVASCULAR: Denies chest pain. RESPIRATORY: Difficulty breathing and wheezing GASTROINTESTINAL: Denies abdominal pain. Denies nausea, vomiting, or diarrhea. MUSCULOSKELETAL: Denies neck or back pain or joint pain or swelling. SKIN: Denies rash or skin lesions. NEUROLOGICAL: Denies altered mental status or loss of consciousness. Denies headache. Denies weakness or paralysis or loss of use of either side. Denies problems with gait or speech. Denies sensory or motor loss. ALL OTHER SYSTEMS REVIEWED AND NEGATIVE. Physical Exam - Vital signs Vitals: Temp Pulse Resp BP Pulse Ox 98.5 F 113 H 20 129/68 H 92 01/16/18 02:57 01/16/18 02:57 01/16/18 02:57 01/16/18 02:57 01/16/18 02:57 - Notes Notes: General Appearance: Well nourished, alert, cooperative, mild to moderate acute distress, no obvious discomfort. Vitals: reviewed, See vital signs table. Head: no swelling or tenderness to the head Eyes: PERRL, EOMI, Conjuctiva clear Mouth: No decreasd moisture Throat: No tonsillar inflammation, No airway obstruction, No lymphadenopathy Neck: Supple, no neck tenderness, No thyromegaly Lungs: Diffuse wheezing, No rales, No rhonci, mild accessory muscle use, poor to fair air exchange bilaterally. Heart: Normal rate, Regular rythm, No murmur, no rub Abdomen: Normal BS, soft, No rigidity, No abdominal tenderness, No guarding, no rebound, Extremities: strength 5/5 in all extremities, good pulses in all extremities, no swelling or tenderness in the extremities, no edema. Skin: warm, dry, appropriate color, no rash Neuro: speech clear, oriented x 3, normal affect, responds appropriately to questions. Course - Re-evaluation Re-evalutation: 01/16/18 05:06 Patient is currently receiving breathing treatments. Her lungs are still very tight and wheezing. She is just now starting to receive magnesium. - Vital Signs Vital signs: Temp Pulse Resp BP Pulse Ox 98.5 F 113 H 20 129/68 H 92 01/16/18 02:57 01/16/18 02:57 01/16/18 02:57 01/16/18 02:57 01/16/18 02:57 Discharge - Discharge Referrals: ESVIN RIVERA PA-C [Primary Care Provider] - Follow up as needed
[2018-01-16] MEDS: MAGNESIUM SULFATE/D5W 1 GM/100 ML RTUPB IV SCH ×2 (04:51→05:42)
[2018-01-16 05:20] LABS: HEMATOCRIT 35.2 % (36.0-47.0); HEMOGLOBIN 11.8 g/dL (12.0-15.5); MEAN CORPUSCULAR HGB CONC 33.7 g/dL (32.0-36.0); MEAN CORPUSCULAR VOLUME 77 fl (80-97); PLATELET COUNT 367 10^3/uL (150-450); RED BLOOD COUNT 4.56 10^6/uL (3.72-5.28); RED CELL DISTRIBUTION WIDTH 15.4 % (11.5-14.0); VENOUS BLOOD BASE EXCESS 3.2 mmol/L; VENOUS BLOOD HCO3 28.6 mmol/L (20-32); VENOUS BLOOD PH 7.41 (7.30-7.42); WHITE BLOOD COUNT 9.4 10^3/uL (4.0-10.5)
[2018-01-16] MEDS ORDERED: ALBUTEROL SULFATE 0.083% NEB 2.5 MG/3 ML AMPUL NEB ONE ×2 (05:32→05:52)
[2018-01-16 05:35] LABS: ALANINE AMINOTRANSFERASE 64 U/L (9-52); ALBUMIN 3.8 g/dL (3.5-5.0); ALKALINE PHOSPHATASE 82 U/L (38-126); ANION GAP 9 (5-19); ASPARTATE AMINO TRANSFERASE 46 U/L (14-36); BILIRUBIN,DIRECT 0.3 mg/dL (0.0-0.4); BILIRUBIN,TOTAL 0.6 mg/dL (0.2-1.3); BLOOD UREA NITROGEN 6 mg/dL (7-20); CARBON DIOXIDE 31 mmol/L (22-30); CHLORIDE 105 mmol/L (98-107); GLUCOSE 110 mg/dL (75-110); POTASSIUM 3.1 mmol/L (3.6-5.0); SODIUM 145.3 mmol/L (137-145); TOTAL PROTEIN 6.7 g/dL (6.3-8.2)
--- NOTE | 2018-01-16 05:40 | RADIOLOGY REPORT (SQ) ---
EXAM DESCRIPTION: XR CHEST 1 VIEW COMPLETED DATE/TME: 01/16/2018 04:16 CLINICAL HISTORY: 57 years Female, dyspnea COMPARISON: 3.13.18 NUMBER OF VIEWS/TECHNIQUE: 1/AP FINDINGS: Adequate lung volume, clear parenchyma, normal cardiac silhouette, and intact bony thorax. IMPRESSION: No acute cardiopulmonary findings.
[2018-01-16] MEDS ORDERED: POTASSIUM CHLORIDE 10 MEQ CAPSULE.ER PO ONE (06:19)
[2018-01-16 06:26] LABS: ABSOLUTE LYMPHOCYTES# (MANUAL) 1.5 10^3/uL (0.5-4.7); ABSOLUTE NEUTROPHILS# (MANUAL) 3.7 10^3/uL (1.7-8.2); BASOPHILS % (MANUAL) 0 % (0-2); LYMPHOCYTES % (MANUAL) 16 % (13-45); MONOCYTES % (MANUAL) 11 % (3-13); PLATELET COMMENT ADEQUATE; RBC MORPHOLOGY COMMENT NORMO-CYTIC/CHROMIC; SEGMENTED NEUTROPHILS % (MAN) 39 % (42-78); TOTAL CELLS COUNTED 100
[2018-01-16 06:28] LABS: EOSINOPHILS % (MANUAL) 34 % (0-6)
--- NOTE | 2018-01-16 06:56 | ER Document Report ---
ED General - General Chief Complaint: Shortness Of Breath Stated Complaint: DIFFICULTY BREATHING Time Seen by Provider: 01/16/18 04:13 TRAVEL OUTSIDE OF THE [place] IN LAST 30 DAYS: No - Related Data Allergies/Adverse Reactions: benzonatate [From Wes Blanco] Allergy (Verified 12/27/17 10:27) NSAIDS (Non-Steroidal Anti-Inflamma Allergy (Verified 12/27/17 10:27) Past Medical History - Social History Smoking Status: Former Smoker Chew tobacco use (# tins/day): No Frequency of alcohol use: None Drug Abuse: None Family History: COPD, Hypertension Patient has suicidal ideation: No Patient has homicidal ideation: No - Past Medical History Cardiac Medical History: Reports: Hx Hypertension Pulmonary Medical History: Reports: Hx Asthma - Aspirin associated asthma, Hx COPD, Hx Pneumonia Endocrine Medical History: Reports: Hx Diabetes Mellitus Type 2 Renal/ Medical History: Denies: Hx Peritoneal Dialysis Psychiatric Medical History: Denies: Hx Depression - Immunizations Hx Diphtheria, Pertussis, Tetanus Vaccination: Yes Physical Exam - Vital signs Vitals: Temp Pulse Resp BP Pulse Ox 98.5 F 113 H 20 129/68 H 92 01/16/18 02:57 01/16/18 02:57 01/16/18 02:57 01/16/18 02:57 01/16/18 02:57 Course - Re-evaluation Re-evalutation: 01/16/18 06:55 Patient signed out to me by Dr. Calhoun. Patient has had 3 nebulizer treatments , magnesium sulfate and is still wheezing. Will admit to hospitalist. 01/16/18 07:[address] Jacobson. He will admit patient to Obs medical floor. - Vital Signs Vital signs: Temp Pulse Resp BP Pulse Ox 98.5 F 113 H 20 129/68 H 92 01/16/18 02:57 01/16/18 02:57 01/16/18 02:57 01/16/18 02:57 01/16/18 02:57 - Laboratory Result Diagrams: 01/16/18 04:53 01/16/18 04:53 Laboratory results interpreted by me: 01/16/18 01/16/18 04:53 04:53 Hgb 11.8 L Hct 35.2 L MCV 77 L MCH 26.0 L RDW 15.4 H Seg Neuts % (Manual) 39 L Eosinophils % (Manual) 34 H Absolute Eos (Manual) 3.2 H Sodium 145.3 H Potassium 3.1 L Carbon Dioxide 31 H BUN 6 L AST 46 H ALT 64 H Discharge - Discharge Clinical Impression: COPD (chronic obstructive pulmonary disease) Qualifiers: COPD type: unspecified COPD Qualified Code(s): J44.9 - Chronic obstructive pulmonary disease, unspecified Condition: Stable Disposition: ADMITTED OBSERVATION Admitting Provider: Hospitalist Unit Admitted: Medical Floor Referrals: ESVIN RIVERA PA-C [Primary Care Provider] - Follow up as needed
[2018-01-16] MEDS ORDERED: ONDANSETRON 4 MG TAB.RAPDIS PO PRN (08:04)
[2018-01-16] MEDS ORDERED: ACETAMINOPHEN 325 MG TABLET PO PRN (08:04)
--- NOTE | 2018-01-16 08:30 | PDOC H&P ---
History of Present Illness Admission Date/PCP: 01/16/18 08:03 ESVIN RIVERA PA-C History of Present Illness: ADDIE STEWART is a 57 year old black female patient with past medical history of hypertension, type 2 diabetes mellitus, COPD and asthma presents with one- week history of difficulty breathing, shortness of breath and wheezing. The last 24 hour shortness of breath and wheezing gets worse so she came to ER for further help. At the ER patient was given 3 rounds of DuoNeb, IV magnesium sulfate and Solu-Medrol despite all this patient continued to have shortness of breath and wheezing. She did quit smoking about 25 years ago. Patient has also history of steroid dependency. She denies fever, chills, chest pain, cough , palpitation or diaphoresis. She does not have any nausea, vomiting, diarrhea or abdominal pain. No urinary complaints. No headache dizziness or blurry of vision. Chest x-ray shows hyperinflated lung preciado with mild depression of the diaphragms which is typical of chronic COPD. Her blood work is significant for mild hypokalemia with potassium of 3.1. Past Medical History Cardiac Medical History: Reports: Hypertension Pulmonary Medical History: Reports: Asthma - Aspirin associated asthma, Chronic Obstructive Pulmonary Disease (COPD), Pneumonia Endocrine Medical History: Reports: Diabetes Mellitus Type 2 Psychiatric Medical History: Denies: Depression Social History Smoking Status: Former Smoker Frequency of Alcohol Use: None Hx Recreational Drug Use: No Drugs: None Hx Prescription Drug Abuse: No - Advance Directive Resuscitation Status: Full Code Family History Family History: COPD, DM, Hypertension Parental Family History Reviewed: Yes Children Family History Reviewed: Yes Sibling(s) Family History Reviewed.: Yes Medication/Allergy Home Medications: Budesonide/Formoterol Fumarate [Symbicort 160-4.5 Mcg Inhaler] 2 puff IH Q12 Diltiazem HCl [Cardizem LA] 240 mg PO Q12 09/22/17 Metformin HCl [Glucophage 500 mg Tablet] 500 mg PO Q12 09/22/17 Montelukast Sodium [Singulair 10 mg Tablet] 10 mg PO QHS 09/22/17 Prednisone [Deltasone 20 mg Tablet] 20 mg PO DAILY 09/22/17 Metformin HCl [Glucophage 500 mg Tablet] 1,000 mg PO BIDACBS #60 tablet Prednisone [Deltasone 20 mg Tablet] 20 mg PO BID 5 Days tablet 09/30/17 Dicyclomine HCl [Bentyl 20 mg Tablet] 20 mg PO QID PRN #12 tablet 12/27/17 Ondansetron HCl [Zofran 4 mg Tablet] 1 tab PO Q6 PRN #12 tablet 12/27/17 Metoclopramide HCl [Reglan 10 mg Tablet] 1 - 2 tab PO ASDIR PRN #25 tablet 12/31 Allergies/Adverse Reactions: benzonatate [From Wes Blanco] Allergy (Verified 12/27/17 10:27) NSAIDS (Non-Steroidal Anti-Inflamma Allergy (Verified 12/27/17 10:27) Review of Systems Constitutional: PRESENT: as per HPI Eyes: PRESENT: as per HPI Ears: PRESENT: as per HPI Respiratory: PRESENT: as per HPI Gastrointestinal: PRESENT: as per HPI Musculoskeletal: PRESENT: as per HPI Neurological: PRESENT: as per HPI Psychiatric: PRESENT: as per HPI Physical Exam Vital Signs: Temp Pulse Resp BP Pulse Ox 98.5 F 113 H 20 129/68 H 92 01/16/18 02:57 01/16/18 02:57 01/16/18 02:57 01/16/18 02:57 01/16/18 02:57 General appearance: PRESENT: mild distress Eye exam: PRESENT: conjunctiva pink Mouth exam: PRESENT: moist Neck exam: ABSENT: carotid bruit, JVD, lymphadenopathy, thyromegaly Respiratory exam: PRESENT: decreased breath sounds, wheezes - Has bilateral diffuse wheezing Cardiovascular exam: PRESENT: RRR. ABSENT: diastolic murmur, rubs, systolic murmur GI/Abdominal exam: PRESENT: normal bowel sounds, soft. ABSENT: distended, guarding, mass, organolmegaly, rebound, tenderness Neurological exam: PRESENT: alert, awake, oriented to time, oriented to situation Psychiatric exam: PRESENT: normal mood Results Impressions: Chest X-Ray 01/16/18 04:16 IMPRESSION: No acute cardiopulmonary findings. Assessment & Plan - Diagnosis (1) COPD with exacerbation Is this a current diagnosis for this admission?: Yes Plan: Patient has been started on Spiriva, DuoNeb, Solu-Medrol, Symbicort and supplemental oxygen. (2) Hypertension Qualifiers: Hypertension type: essential hypertension Qualified Code(s): I10 - Essential (primary) hypertension Is this a current diagnosis for this admission?: Yes Plan: Continue her home medication (3) Type 2 diabetes mellitus Is this a current diagnosis for this admission?: Yes Plan: There has been started on sliding scale and continue her home medications.
[2018-01-16] MEDS ORDERED: GLUCAGON,HUMAN RECOMB 1 MG INJ IM PRN (08:32)
[2018-01-16] MEDS ORDERED: DEXTROSE 40% GEL 15 GM TUBE PO PRN ×2 (08:32)
[2018-01-16] MEDS ORDERED: DEXTROSE 50%-WATER 25 GM/50 ML DISP.SYRIN IV PRN ×2 (08:32)
[2018-01-16] MEDS ORDERED: METFORMIN HCL 500 MG TABLET PO ONE (09:00)
[2018-01-16] MEDS ORDERED: BUDESONIDE/FORMOTEROL 160-4.5 MCG 60 PUFF/6 GM MDI IH ONE (09:00)
[2018-01-16] MEDS: ENOXAPARIN SODIUM INJ 40 MG/0.4 ML DISP.SYRIN SUBCUT SCH (10:14)
[2018-01-16] MEDS: TIOTROPIUM BROMIDE DPI 5 CAP/KIT (18 MCG/CAP) IH SCH (10:16)
--- NOTE | 2018-01-16 10:41 | EKG REPORT ---
SEVERITY:- OTHERWISE NORMAL ECG - SINUS TACHYCARDIA : Confirmed by: Raman Hernandez MD 16-Jan-2018 10:40:22
[2018-01-16] MEDS: METHYLPREDNISOLONE INJ 125 MG/2 ML SDV IV SCH ×3 (11:15→23:31)
[2018-01-16] MEDS: IPRATROPIUM/ALBUTEROL 0.5-2.5 MG/3 ML AMPUL NEB SCH ×3 (11:46→20:20)
[2018-01-16] MEDS ORDERED: METHYLPREDNISOLONE INJ 40 MG/1 ML SDV IV SCH (12:00)
[2018-01-16] MEDS ORDERED: DILTIAZEM HCL 60 MG TABLET PO ONE (21:45)
[2018-01-16] MEDS ORDERED: DILTIAZEM HCL 30 MG TABLET PO ONE (23:15)
[2018-01-17] MEDS: IPRATROPIUM/ALBUTEROL 0.5-2.5 MG/3 ML AMPUL NEB SCH ×6 (00:12→20:13)
[2018-01-17] MEDS: DILTIAZEM HCL 60 MG TABLET PO SCH ×3 (05:30→17:15)
[2018-01-17] MEDS: LANSOPRAZOLE 30 MG TAB.RAP.DR PO SCH (05:30)
[2018-01-17] MEDS: METHYLPREDNISOLONE INJ 125 MG/2 ML SDV IV SCH ×4 (05:31→23:31)
[2018-01-17 06:44] LABS: HEMATOCRIT 34.1 % (36.0-47.0); HEMOGLOBIN 11.6 g/dL (12.0-15.5); MEAN CORPUSCULAR HEMOGLOBIN 26.5 pg (27.0-33.4); MEAN CORPUSCULAR HGB CONC 34.1 g/dL (32.0-36.0); MEAN CORPUSCULAR VOLUME 78 fl (80-97); PLATELET COUNT 337 10^3/uL (150-450); RED BLOOD COUNT 4.39 10^6/uL (3.72-5.28); RED CELL DISTRIBUTION WIDTH 15.8 % (11.5-14.0); WHITE BLOOD COUNT 5.7 10^3/uL (4.0-10.5)
[2018-01-17 07:13] LABS: ANION GAP 12 (5-19); BLOOD UREA NITROGEN 14 mg/dL (7-20); CALCIUM 9.4 mg/dL (8.4-10.2); CARBON DIOXIDE 26 mmol/L (22-30); CHLORIDE 107 mmol/L (98-107); GLUCOSE 263 mg/dL (75-110); POTASSIUM 3.9 mmol/L (3.6-5.0); SODIUM 145.4 mmol/L (137-145)
[2018-01-17] MEDS: INSULIN LISPRO 100 UNIT/ML 3 ML VIAL SUBCUT PRN ×4 (08:19→21:10)
[2018-01-17 09:04] LABS: ARTERIAL BLOOD BASE EXCESS 3.1 mmol/L; ARTERIAL BLOOD H2CO3 1.34 mmol/L (1.05-1.35); ARTERIAL BLOOD HCO3 28.1 mmol/L (20-26); ARTERIAL BLOOD PCO2 44.4 mmHg (35-45); ARTERIAL BLOOD PH 7.42 (7.35-7.45); ARTERIAL BLOOD PO2 80.3 mmHg (80-100); ARTERIAL BLOOD TOTAL CO2 29.5 mmol/L (21-25)
[2018-01-17 09:05] LABS: ARTERIAL BLOOD FIO2 32%
[2018-01-17] MEDS: TIOTROPIUM BROMIDE DPI 5 CAP/KIT (18 MCG/CAP) IH SCH (10:51)
[2018-01-17] MEDS: ENOXAPARIN SODIUM INJ 40 MG/0.4 ML DISP.SYRIN SUBCUT SCH (10:54)
[2018-01-17] MEDS ORDERED: GUAIFENESIN 600 MG TABLET.SA PO ONE (13:30)
--- NOTE | 2018-01-17 14:07 | PDOC PROGRESS REPORT ---
Subjective Progress Note for:: 01/17/18 Subjective:: This 57 years old black female patient admitted yesterday with chief complaint of shortness of breath secondary to COPD exacerbation. Patient has been on bronchodilators supplemental oxygen and Solu-Medrol. This morning I seen patient sitting up by the bedside she is awake alert and oriented. She is still wheezing and short of breath.. BiPAP ordered for her. Reason For Visit: COPD EXACERBATION Physical Exam Vital Signs: Temp Pulse Resp BP Pulse Ox 97.7 F 114 H 18 141/80 H 98 01/17/18 03:09 01/17/18 11:39 01/17/18 11:39 01/17/18 03:09 01/17/18 11:39 Intake & Output 01/16/18 01/17/18 01/18/18 06:59 06:59 06:59 Intake Total 1210 Balance 1210 Weight 78.1 kg Results Laboratory Results: 01/17/18 04:44 01/17/18 04:44 01/17/18 01/17/18 01/17/18 04:44 04:44 08:25 WBC 5.7 RBC 4.39 Hgb 11.6 L Hct 34.1 L MCV 78 L MCH 26.5 L MCHC 34.1 RDW 15.8 H Plt Count 337 Carbonic Acid 1.34 HCO3/H2CO3 Ratio 20:1 ABG pH 7.42 ABG pCO2 44.4 ABG pO2 80.3 ABG HCO3 28.1 H ABG O2 Saturation 96.0 ABG Base Excess 3.1 FiO2 32% Sodium 145.4 H Potassium 3.9 Chloride 107 Carbon Dioxide 26 Anion Gap 12 BUN 14 Creatinine 0.66 Est GFR ( Amer) > 60 Est GFR (Non-Af Amer) > 60 Glucose 263 H Calcium 9.4 Impressions: Chest X-Ray 01/16/18 04:16 IMPRESSION: No acute cardiopulmonary findings. Assessment & Plan - Diagnosis (1) COPD with exacerbation Is this a current diagnosis for this admission?: Yes Plan: Continue Solu-Medrol, supplemental oxygen, bronchodilators and as needed BiPAP. (2) Hypertension Qualifiers: Hypertension type: essential hypertension Qualified Code(s): I10 - Essential (primary) hypertension Is this a current diagnosis for this admission?: Yes Plan: Continue her home medication (3) Type 2 diabetes mellitus Is this a current diagnosis for this admission?: Yes Plan: There has been started on sliding scale and continue her home medications. (4) Hypokalemia Is this a current diagnosis for this admission?: Yes Plan: Resolved
[2018-01-17] MEDS: MONTELUKAST SODIUM 10 MG TABLET PO SCH (19:00)
[2018-01-17] MEDS ORDERED: IPRATROPIUM/ALBUTEROL 0.5-2.5 MG/3 ML AMPUL NEB SCH (20:00)
[2018-01-17] MEDS: CARVEDILOL 3.125 MG TABLET PO SCH (21:03)
[2018-01-17] MEDS: GUAIFENESIN 600 MG TABLET.SA PO SCH (21:03)
[2018-01-17] MEDS: DILTIAZEM HCL 240 MG CAPSULE.CR PO SCH (21:03)
[2018-01-18] MEDS: IPRATROPIUM/ALBUTEROL 0.5-2.5 MG/3 ML AMPUL NEB SCH ×6 (00:17→19:45)
[2018-01-18] MEDS: METHYLPREDNISOLONE INJ 125 MG/2 ML SDV IV SCH ×4 (05:56→22:45)
[2018-01-18] MEDS: LANSOPRAZOLE 30 MG TAB.RAP.DR PO SCH (06:02)
[2018-01-18] MEDS: INSULIN LISPRO 100 UNIT/ML 3 ML VIAL SUBCUT PRN ×4 (08:17→23:00)
[2018-01-18] MEDS ORDERED: METFORMIN HCL 500 MG TABLET PO ONE (09:00)
--- NOTE | 2018-01-18 09:22 | Physician Advisory Note ---
Physician Advisor ProgressNote .: Pursuant to the plan for [facility], I have reviewed the medical record for this patient. Physician Advisor Statement: Status: Medicaid pt with COPD exacerbation, still wheezing and SOB 24 hrs after brought in, needing Bipap ordered PRN, & having persistent tachycardia as high as 131 on 01/17, was clearly not back to baseline & still needing hospital care & monitoring. Appropriate for transition to INpatient status as of 01/17/18. Thanks! CK
[2018-01-18] MEDS: ENOXAPARIN SODIUM INJ 40 MG/0.4 ML DISP.SYRIN SUBCUT SCH (10:33)
[2018-01-18] MEDS: GUAIFENESIN 600 MG TABLET.SA PO SCH ×2 (10:34→22:45)
[2018-01-18] MEDS: CARVEDILOL 3.125 MG TABLET PO SCH ×2 (10:34→22:45)
[2018-01-18] MEDS: DILTIAZEM HCL 240 MG CAPSULE.CR PO SCH ×2 (10:34→22:45)
[2018-01-18] MEDS: LORATADINE 10 MG TABLET PO SCH (10:34)
[2018-01-18] MEDS: TIOTROPIUM BROMIDE DPI 5 CAP/KIT (18 MCG/CAP) IH SCH (10:35)
--- NOTE | 2018-01-18 13:58 | PDOC PROGRESS REPORT ---
Subjective Progress Note for:: 01/18/18 Subjective:: This is a 57 years old black female patient admitted for shortness of breath and wheezing secondary to COPD exacerbation. Patient had tried her home breathing treatment to no avail. Patient has been on high-dose Solu-Medrol 125 mg IV every 8 hours, bronchodilators, supplemental oxygen and Symbicort. She has been doing well. Today I tapered her Solu-Medrol from 125-60 mg every 8 hours. She is potential discharge in the coming 48 hours. Reason For Visit: EXACERBATION COPD Physical Exam Vital Signs: Temp Pulse Resp BP Pulse Ox 98.0 F 104 H 20 128/66 H 96 01/18/18 07:29 01/18/18 12:29 01/18/18 12:29 01/18/18 07:29 01/18/18 12:29 Intake & Output 01/17/18 01/18/18 01/19/18 06:59 06:59 06:59 Intake Total 1210 1750 0 Balance 1210 1750 0 Weight 78.1 kg 78.7 kg General appearance: PRESENT: mild distress Eye exam: PRESENT: conjunctiva pink Mouth exam: PRESENT: moist Respiratory exam: PRESENT: wheezes Cardiovascular exam: PRESENT: tachycardia GI/Abdominal exam: PRESENT: normal bowel sounds, soft. ABSENT: distended, guarding, mass, organolmegaly, rebound, tenderness Neurological exam: PRESENT: alert, awake, oriented to time, oriented to situation Results Laboratory Results: 01/17/18 04:44 01/17/18 04:44 Impressions: Chest X-Ray 01/16/18 04:16 IMPRESSION: No acute cardiopulmonary findings. Assessment & Plan - Diagnosis (1) COPD with exacerbation Is this a current diagnosis for this admission?: Yes Plan: Continue Solu-Medrol, supplemental oxygen, bronchodilators and as needed BiPAP. (2) Hypertension Qualifiers: Hypertension type: essential hypertension Qualified Code(s): I10 - Essential (primary) hypertension Is this a current diagnosis for this admission?: Yes Plan: Continue her home medication (3) Type 2 diabetes mellitus Is this a current diagnosis for this admission?: Yes Plan: There has been started on sliding scale and continue her home medications. (4) Hypokalemia Is this a current diagnosis for this admission?: Yes Plan: Resolved
[2018-01-18 14:56] LABS: PATH REVIEW PATHOLOGIST REVIEWED
[2018-01-18] MEDS ORDERED: BUDESONIDE/FORMOTEROL 160-4.5 MCG 60 PUFF/6 GM MDI IH ONE (15:00)
[2018-01-18] MEDS: METFORMIN HCL 500 MG TABLET PO SCH (18:29)
[2018-01-18] MEDS: MONTELUKAST SODIUM 10 MG TABLET PO SCH (18:29)
[2018-01-19] MEDS: IPRATROPIUM/ALBUTEROL 0.5-2.5 MG/3 ML AMPUL NEB SCH ×6 (00:49→20:41)
[2018-01-19] MEDS: METHYLPREDNISOLONE INJ 125 MG/2 ML SDV IV SCH ×2 (03:42→08:40)
[2018-01-19] MEDS: LANSOPRAZOLE 30 MG TAB.RAP.DR PO SCH (06:15)
[2018-01-19] MEDS: INSULIN LISPRO 100 UNIT/ML 3 ML VIAL SUBCUT PRN ×4 (08:40→21:36)
[2018-01-19] MEDS: METFORMIN HCL 500 MG TABLET PO SCH ×2 (08:40→16:50)
[2018-01-19] MEDS: CARVEDILOL 3.125 MG TABLET PO SCH ×2 (09:56→21:36)
[2018-01-19] MEDS: LORATADINE 10 MG TABLET PO SCH (09:56)
[2018-01-19] MEDS: DILTIAZEM HCL 240 MG CAPSULE.CR PO SCH ×2 (09:56→21:36)
[2018-01-19] MEDS: GUAIFENESIN 600 MG TABLET.SA PO SCH ×2 (09:56→21:36)
[2018-01-19] MEDS: TIOTROPIUM BROMIDE DPI 5 CAP/KIT (18 MCG/CAP) IH SCH (09:57)
[2018-01-19] MEDS: ENOXAPARIN SODIUM INJ 40 MG/0.4 ML DISP.SYRIN SUBCUT SCH (09:57)
[2018-01-19 10:59] LABS: ANION GAP 11 (5-19); BLOOD UREA NITROGEN 21 mg/dL (7-20); CALCIUM 9.3 mg/dL (8.4-10.2); CARBON DIOXIDE 26 mmol/L (22-30); CHLORIDE 104 mmol/L (98-107); GLUCOSE 331 mg/dL (75-110); POTASSIUM 3.6 mmol/L (3.6-5.0); SODIUM 140.8 mmol/L (137-145)
[2018-01-19] MEDS: MONTELUKAST SODIUM 10 MG TABLET PO SCH (16:50)
--- NOTE | 2018-01-19 18:54 | PDOC PROGRESS REPORT ---
Subjective Progress Note for:: 01/19/18 Subjective:: No new complaints. Reason For Visit: EXACERBATION COPD Physical Exam Vital Signs: Temp Pulse Resp BP Pulse Ox 98.5 F 82 16 129/64 H 97 01/19/18 12:00 01/19/18 15:51 01/19/18 15:51 01/19/18 12:00 01/19/18 15:51 Intake & Output 01/18/18 01/19/18 01/20/18 06:59 06:59 06:59 Intake Total 1750 0 537 Output Total 450 Balance 1750 -450 537 Weight 78.7 kg General appearance: PRESENT: no acute distress, thin, other - The patient is elderly, weak, and frail. She is awake, and alert, with no new complaints. Head exam: PRESENT: atraumatic, normocephalic Eye exam: PRESENT: conjunctiva pink, EOMI, PERRLA. ABSENT: scleral icterus Ear exam: PRESENT: normal external ear exam Mouth exam: PRESENT: moist, tongue midline Neck exam: ABSENT: carotid bruit, JVD, lymphadenopathy, thyromegaly Respiratory exam: PRESENT: other - No increased work of breathing. No wheezes, rales, or rhonchi. No tactile fremitus.. ABSENT: rales, rhonchi, wheezes Cardiovascular exam: PRESENT: RRR, other - No lateral PMI. No thrills.. ABSENT : diastolic murmur, gallop, rubs, systolic murmur Pulses: PRESENT: normal dorsalis pedis pul Vascular exam: PRESENT: pallor GI/Abdominal exam: PRESENT: normal bowel sounds, soft. ABSENT: distended, guarding, mass, organolmegaly, rebound, tenderness Rectal exam: PRESENT: deferred Extremities exam: PRESENT: full ROM. ABSENT: calf tenderness, clubbing, pedal edema Neurological exam: PRESENT: alert, awake, oriented to person, oriented to place , oriented to time, oriented to situation, CN II-XII grossly intact. ABSENT: motor sensory deficit Psychiatric exam: PRESENT: appropriate affect, normal mood. ABSENT: homicidal ideation, suicidal ideation Skin exam: PRESENT: dry, intact, warm. ABSENT: cyanosis, rash Results Laboratory Results: 01/17/18 04:44 01/19/18 10:15 01/19/18 10:15 Sodium 140.8 Potassium 3.6 Chloride 104 Carbon Dioxide 26 Anion Gap 11 BUN 21 H Creatinine 0.66 Est GFR ( Amer) > 60 Est GFR (Non-Af Amer) > 60 Glucose 331 H Calcium 9.3 Impressions: Chest X-Ray 01/16/18 04:16 IMPRESSION: No acute cardiopulmonary findings. Assessment & Plan - Diagnosis (1) Hypertension Qualifiers: Hypertension type: essential hypertension Qualified Code(s): I10 - Essential (primary) hypertension Is this a current diagnosis for this admission?: Yes Plan: Continue home antihypertensives. 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 Diabetic diet and hypoglycemic protocol. (4) Acute exacerbation of chronic obstructive pulmonary disease (COPD) Is this a current diagnosis for this admission?: Yes Plan: IV steroid taper and nebulizer treatments.Wean O2. - Time Time Spent with patient: 25-34 minutes Within: within 24 hours
[2018-01-19] MEDS: METHYLPREDNISOLONE INJ 40 MG/1 ML SDV IV SCH (21:37)
[2018-01-20] MEDS: IPRATROPIUM/ALBUTEROL 0.5-2.5 MG/3 ML AMPUL NEB SCH ×7 (03:58→23:56)
[2018-01-20] MEDS: LANSOPRAZOLE 30 MG TAB.RAP.DR PO SCH (06:14)
[2018-01-20] MEDS: METFORMIN HCL 500 MG TABLET PO SCH ×2 (08:46→17:47)
[2018-01-20] MEDS: INSULIN LISPRO 100 UNIT/ML 3 ML VIAL SUBCUT PRN ×4 (08:46→22:42)
[2018-01-20] MEDS: TIOTROPIUM BROMIDE DPI 5 CAP/KIT (18 MCG/CAP) IH SCH (09:18)
[2018-01-20] MEDS: ENOXAPARIN SODIUM INJ 40 MG/0.4 ML DISP.SYRIN SUBCUT SCH ×2 (09:18→09:22)
[2018-01-20] MEDS: METHYLPREDNISOLONE INJ 40 MG/1 ML SDV IV SCH (09:18)
[2018-01-20] MEDS: CARVEDILOL 3.125 MG TABLET PO SCH ×2 (09:18→22:42)
[2018-01-20] MEDS: GUAIFENESIN 600 MG TABLET.SA PO SCH ×2 (09:18→22:42)
[2018-01-20] MEDS: LORATADINE 10 MG TABLET PO SCH (09:18)
[2018-01-20] MEDS: DILTIAZEM HCL 240 MG CAPSULE.CR PO SCH ×2 (09:18→22:42)
[2018-01-20] MEDS: MONTELUKAST SODIUM 10 MG TABLET PO SCH (17:47)
--- NOTE | 2018-01-20 19:51 | PDOC PROGRESS REPORT ---
Subjective Progress Note for:: 01/20/18 Subjective:: No new complaints. Reason For Visit: EXACERBATION COPD Physical Exam Vital Signs: Temp Pulse Resp BP Pulse Ox 99 F 91 16 135/60 H 99 01/20/18 16:00 01/20/18 16:15 01/20/18 16:15 01/20/18 16:00 01/20/18 16:15 Intake & Output 01/19/18 01/20/18 01/21/18 06:59 06:59 06:59 Intake Total 0 1137 Output Total 450 Balance -450 1137 Weight 82.5 kg General appearance: PRESENT: no acute distress, thin, other - The patient is elderly, weak, and frail. No new complaints. Respiratory exam: PRESENT: other - No increased work of breathing. No wheezes, rales, or rhonchi. No tactile fremitus. Cardiovascular exam: PRESENT: RRR, other - No lateral PMI. No thrills.. ABSENT : gallop, rubs, tachycardia Pulses: PRESENT: other - Diminished distal pulses. GI/Abdominal exam: PRESENT: normal bowel sounds, soft. ABSENT: distended, hernia, mass, organolmegaly, tenderness Extremities exam: ABSENT: full ROM, pedal edema, tenderness Musculoskeletal exam: ABSENT: deformity Neurological exam: PRESENT: alert, awake, oriented to person, oriented to place , oriented to time, CN II-XII grossly intact Psychiatric exam: PRESENT: appropriate affect, normal mood Skin exam: PRESENT: dry, intact, warm Results Laboratory Results: 01/17/18 04:44 01/19/18 10:15 Impressions: Chest X-Ray 01/16/18 04:16 IMPRESSION: No acute cardiopulmonary findings. Assessment & Plan - Diagnosis (1) Acute exacerbation of chronic obstructive pulmonary disease (COPD) Is this a current diagnosis for this admission?: Yes Plan: IV steroid taper and nebulizer treatments.Wean O2. 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 Diabetic diet and hypoglycemic protocol. (4) Acute respiratory failure with hypoxemia Is this a current diagnosis for this admission?: Yes Plan: Nebulizer treatments and steroid taper. Improving. Wean off of O2. (5) Hypertension Qualifiers: Hypertension type: essential hypertension Qualified Code(s): I10 - Essential (primary) hypertension Is this a current diagnosis for this admission?: Yes Plan: Continue home antihypertensives. - Time Time Spent with patient: 25-34 minutes Anticipated discharge: SNF Within: when bed available
[2018-01-21] MEDS: IPRATROPIUM/ALBUTEROL 0.5-2.5 MG/3 ML AMPUL NEB SCH ×6 (03:47→23:55)
[2018-01-21] MEDS: LANSOPRAZOLE 30 MG TAB.RAP.DR PO SCH (05:29)
[2018-01-21 06:06] LABS: ANION GAP 9 (5-19); BLOOD UREA NITROGEN 17 mg/dL (7-20); CALCIUM 8.9 mg/dL (8.4-10.2); CARBON DIOXIDE 31 mmol/L (22-30); CHLORIDE 103 mmol/L (98-107); GLUCOSE 190 mg/dL (75-110); POTASSIUM 3.5 mmol/L (3.6-5.0); SODIUM 143.4 mmol/L (137-145)
[2018-01-21 06:49] LABS: HEMATOCRIT 34.1 % (36.0-47.0); HEMOGLOBIN 11.5 g/dL (12.0-15.5); MEAN CORPUSCULAR HGB CONC 33.7 g/dL (32.0-36.0); MEAN CORPUSCULAR VOLUME 77 fl (80-97); PLATELET COUNT 364 10^3/uL (150-450); RED BLOOD COUNT 4.41 10^6/uL (3.72-5.28); RED CELL DISTRIBUTION WIDTH 15.3 % (11.5-14.0); WHITE BLOOD COUNT 8.5 10^3/uL (4.0-10.5)
[2018-01-21 07:04] LABS: ABSOLUTE LYMPHOCYTES# (MANUAL) 1.1 10^3/uL (0.5-4.7); ABSOLUTE MONOCYTES # (MANUAL) 0.9 10^3/uL (0.1-1.4); ABSOLUTE NEUTROPHILS# (MANUAL) 6.5 10^3/uL (1.7-8.2); BASOPHILS % (MANUAL) 0 % (0-2); EOSINOPHILS % (MANUAL) 0 % (0-6); LYMPHOCYTES % (MANUAL) 13 % (13-45); MONOCYTES % (MANUAL) 11 % (3-13); SEGMENTED NEUTROPHILS % (MAN) 76 % (42-78); TOTAL CELLS COUNTED 100
[2018-01-21 07:05] LABS: ANISOCYTOSIS SLIGHT; HYPOCHROMASIA SLIGHT; OVALOCYTES SLIGHT; PLATELET COMMENT ADEQUATE
[2018-01-21 07:06] LABS: POIKILOCYTOSIS SLIGHT
[2018-01-21] MEDS: LORATADINE 10 MG TABLET PO SCH (08:04)
[2018-01-21] MEDS: GUAIFENESIN 600 MG TABLET.SA PO SCH ×2 (08:04→21:59)
[2018-01-21] MEDS: INSULIN LISPRO 100 UNIT/ML 3 ML VIAL SUBCUT PRN ×4 (08:04→21:59)
[2018-01-21] MEDS: DILTIAZEM HCL 240 MG CAPSULE.CR PO SCH ×2 (08:04→21:59)
[2018-01-21] MEDS: METFORMIN HCL 500 MG TABLET PO SCH ×2 (08:04→16:52)
[2018-01-21] MEDS: CARVEDILOL 3.125 MG TABLET PO SCH ×2 (08:04→21:59)
[2018-01-21] MEDS: TIOTROPIUM BROMIDE DPI 5 CAP/KIT (18 MCG/CAP) IH SCH (08:07)
[2018-01-21] MEDS: PREDNISONE 20 MG TABLET PO SCH (08:08)
[2018-01-21] MEDS ORDERED: ONDANSETRON 4 MG TAB.RAPDIS PO PRN (15:00)
[2018-01-21] MEDS: MONTELUKAST SODIUM 10 MG TABLET PO SCH (16:52)
--- NOTE | 2018-01-21 17:37 | PDOC PROGRESS REPORT ---
Subjective Progress Note for:: 01/21/18 Subjective:: No new complaints. The patient is resting comfortably. Reason For Visit: EXACERBATION COPD Physical Exam Vital Signs: Temp Pulse Resp BP Pulse Ox 98.5 F 92 16 133/62 H 95 01/21/18 11:55 01/21/18 14:00 01/21/18 12:16 01/21/18 11:55 01/21/18 12:16 Intake & Output 01/20/18 01/21/18 01/22/18 06:59 06:59 06:59 Intake Total 1137 500 Balance 1137 500 Weight 82.5 kg 83 kg General appearance: PRESENT: no acute distress, thin Cardiovascular exam: PRESENT: RRR. ABSENT: gallop, rubs, systolic murmur Pulses: PRESENT: other - Diminished distal pulses. GI/Abdominal exam: PRESENT: normal bowel sounds, soft. ABSENT: guarding, hernia , mass, organolmegaly Extremities exam: ABSENT: clubbing, tenderness, +1 edema Neurological exam: PRESENT: alert, awake, oriented to person, oriented to place , oriented to time, oriented to situation Psychiatric exam: PRESENT: appropriate affect, normal mood Skin exam: PRESENT: dry, intact, warm Results Laboratory Results: 01/21/18 04:27 01/21/18 04:27 01/21/18 01/21/18 04:27 04:27 WBC 8.5 RBC 4.41 Hgb 11.5 L Hct 34.1 L MCV 77 L MCH 26.0 L MCHC 33.7 RDW 15.3 H Plt Count 364 Seg Neutrophils % Not Reportable Lymphocytes % Not Reportable Monocytes % Not Reportable Eosinophils % Not Reportable Basophils % Not Reportable Absolute Neutrophils Not Reportable Absolute Lymphocytes Not Reportable Absolute Monocytes Not Reportable Absolute Eosinophils Not Reportable Absolute Basophils Not Reportable Sodium 143.4 Potassium 3.5 L Chloride 103 Carbon Dioxide 31 H Anion Gap 9 BUN 17 Creatinine 0.55 Est GFR ( Amer) > 60 Est GFR (Non-Af Amer) > 60 Glucose 190 H Calcium 8.9 Impressions: Chest X-Ray 01/16/18 04:16 IMPRESSION: No acute cardiopulmonary findings. Assessment & Plan - Diagnosis (1) Acute exacerbation of chronic obstructive pulmonary disease (COPD) Is this a current diagnosis for this admission?: Yes Plan: IV steroid taper and nebulizer treatments. 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 Diabetic diet and hypoglycemic protocol. (4) Acute respiratory failure with hypoxemia Is this a current diagnosis for this admission?: Yes Plan: Nebulizer treatments and steroid taper. Improving. (5) Hypertension Qualifiers: Hypertension type: essential hypertension Qualified Code(s): I10 - Essential (primary) hypertension Is this a current diagnosis for this admission?: Yes - Time Time Spent with patient: 25-34 minutes Medications reviewed and adjusted accordingly: Yes Anticipated discharge: SNF
[2018-01-21] MEDS ORDERED: POTASSIUM CHLORIDE 10 MEQ CAPSULE.ER PO ONE (19:15)
[2018-01-22] MEDS: IPRATROPIUM/ALBUTEROL 0.5-2.5 MG/3 ML AMPUL NEB SCH ×3 (04:18→11:42)
[2018-01-22] MEDS ORDERED: LANSOPRAZOLE 30 MG TAB.RAP.DR PO SCH (06:00)
[2018-01-22] MEDS: METFORMIN HCL 500 MG TABLET PO SCH (08:48)
[2018-01-22] MEDS: PREDNISONE 20 MG TABLET PO SCH (09:49)
[2018-01-22] MEDS: DILTIAZEM HCL 240 MG CAPSULE.CR PO SCH (09:49)
[2018-01-22] MEDS: GUAIFENESIN 600 MG TABLET.SA PO SCH (09:49)
[2018-01-22] MEDS: LORATADINE 10 MG TABLET PO SCH (09:50)
[2018-01-22] MEDS: CARVEDILOL 3.125 MG TABLET PO SCH (09:50)
[2018-01-22] MEDS: ENOXAPARIN SODIUM INJ 40 MG/0.4 ML DISP.SYRIN SUBCUT SCH (09:51)
[2018-01-22] MEDS: TIOTROPIUM BROMIDE DPI 5 CAP/KIT (18 MCG/CAP) IH SCH (12:41)
[2018-01-22 12:50] VITALS: BP 136/71
[2018-01-22] MEDS: INSULIN LISPRO 100 UNIT/ML 3 ML VIAL SUBCUT PRN (14:09)
--- NOTE | 2018-01-22 18:13 | PDOC DISCHARGE SUMMARY ---
General - Admit/Disc Date/PCP Admission Date/Primary Care Provider: 01/16/18 09:47 ESVIN RIVERA PA-C Discharge Date: 01/22/18 - Discharge Diagnosis (1) Acute exacerbation of chronic obstructive pulmonary disease (COPD) Is this a current diagnosis for this admission?: Yes (2) Hypokalemia Is this a current diagnosis for this admission?: Yes (3) Type 2 diabetes mellitus Is this a current diagnosis for this admission?: Yes (4) Acute respiratory failure with hypoxemia Is this a current diagnosis for this admission?: Yes (5) Hypertension Is this a current diagnosis for this admission?: Yes - Additional Information Resuscitation Status: Full Code Discharge Diet: Diabetic Discharge Activity: Activity As Tolerated Prescriptions: Prednisone [Deltasone 20 mg Tablet] 60 mg PO DAILY #20 tablet Home Medications: Acetaminophen [Tylenol Extra Strength] 500 mg PO Q4HP PRN 01/17/18 Albuterol Sulfate [Proair HFA] 2 puff IH Q4HP PRN 01/17/18 Budesonide/Formoterol Fumarate [Symbicort HFA 160-4.5 mcg Inhaler 6 gm] 2 puff IH Q12 01/17/18 Carvedilol [Coreg 3.125 mg Tablet] 3.125 mg PO Q12 01/17/18 Diltiazem HCl [Cardizem LA] 240 mg PO Q12 01/17/18 Guaifenesin [Mucinex] 600 mg PO Q12 01/17/18 Ipratropium/Albuterol Sulfate [Duoneb 3 ml Ampul] 3 ml NEB RTQID 01/17/18 Loratadine [Claritin 10 mg Tablet] 10 mg PO DAILY 01/17/18 Metformin HCl [Glucophage 500 mg Tablet] 500 mg PO BID 01/17/18 Montelukast Sodium [Singulair 10 mg Tablet] 10 mg PO QPM 01/17/18 Prednisone [Deltasone 20 mg Tablet] 60 mg PO DAILY #20 tablet 01/22/18 History of Present Illness History of Present Illness: ADDIE STEWART is a 57 year old female Hospital Course Hospital Course: The patient was admitted from the ED on 01/16/2018 with acute respiratory failure due to COPD exacerbation. She was given IV antibiotics, nebulizer treatments and IV steroids. Her glucoses were followed with FSBS and SSI. She completed her course of antibiotics. Her respiratory status has gradually improved. She has been ambulating in the halls. She will be discharged to home in good condition. Physical Exam Vital Signs: Temp Pulse Resp BP Pulse Ox 98.4 F 84 18 136/71 H 95 01/22/18 14:35 01/22/18 14:35 01/22/18 14:35 01/22/18 14:35 01/22/18 14:35 Intake & Output 01/21/18 01/22/18 01/23/18 06:59 06:59 06:59 Intake Total 500 266 460 Output Total 600 Balance 500 266 -140 Weight 83 kg 81.5 kg General appearance: PRESENT: no acute distress, cooperative Respiratory exam: PRESENT: other - No increaed work of breathing. No wheezes, rales, or rhonchi. No tactile fremitus. Cardiovascular exam: PRESENT: RRR. ABSENT: gallop, rubs, systolic murmur Pulses: PRESENT: normal femoral pulses, normal dorsalis pedis pul GI/Abdominal exam: PRESENT: normal bowel sounds, soft. ABSENT: distended, hernia, mass Musculoskeletal exam: PRESENT: full ROM, normal inspection. ABSENT: deformity, tenderness Neurological exam: PRESENT: alert, altered, awake, oriented to person, oriented to place, oriented to time, oriented to situation, CN II-XII grossly intact. ABSENT: motor sensory deficit Psychiatric exam: PRESENT: appropriate affect, normal mood Skin exam: PRESENT: dry, intact, warm Results Laboratory Results: 01/21/18 04:27 01/21/18 04:27 Impressions: Chest X-Ray 01/16/18 04:16 IMPRESSION: No acute cardiopulmonary findings. Qualifiers - * PATIENT BEING DISCHARGED WITH ANY OF THE FOLLOWING DIAGNOSIS: No
== END 2018-01-22 15:13 | disposition home or self-care (01) | DRG 190 ==
LOC: ER 02:34 → EH 08:03 → OBSVTOIN 09:47 → 4S 10:02
PROVIDERS: ADMIT Internal Medicine; ATTEND Internal Medicine
PROC: 3E0F73Z Introduction of Anti-inflammatory into Respiratory Tract, Via Natural or Artificial Opening (ICD-10-PCS; principal; 2018-01-16)
PROC: 5A09357 Assistance with Respiratory Ventilation, Less than 24 Consecutive Hours, Continuous Positive Airway Pressure (ICD-10-PCS; 2018-01-17)
DX: J44.1 Chronic obstructive pulmonary disease with (acute) exacerbation (principal); J96.01 Acute respiratory failure with hypoxia; E87.6 Hypokalemia; E11.9 Type 2 diabetes mellitus without complications; I10 Essential (primary) hypertension; Z83.3 Family history of diabetes mellitus; Z79.899 Other long term (current) drug therapy; Z88.6 Allergy status to analgesic agent; Z88.8 Allergy status to other drugs, medicaments and biological substances; Z87.891 Personal history of nicotine dependence; Z79.52 Long term (current) use of systemic steroids; Z79.84 Long term (current) use of oral hypoglycemic drugs
CPT/HCPCS: 36415; 36600; 71045; 80048; 80053; 82803; 82962; 85025; 85027; 93005; 93010; 94640; 96365; 96366; 99285; G0378; J1650; J1815; J2920; J2930; J3475; J3490; J7512; J7620

== ENCOUNTER 2018-02-21 02:19 | Inpatient (IN) | payer MEDICAID ==
[2018-02-21] MEDS ORDERED: IPRATROPIUM/ALBUTEROL 0.5-2.5 MG/3 ML AMPUL NEB ONE (02:36)
[2018-02-21] MEDS ORDERED: METHYLPREDNISOLONE INJ 125 MG/2 ML SDV IV ONE (02:36)
[2018-02-21] MEDS ORDERED: MAGNESIUM SULFATE/D5W 1 GM/100 ML RTUPB IV ONE (02:36)
--- NOTE | 2018-02-21 02:39 | ER Document Report ---
ED General - General Chief Complaint: Shortness Of Breath Stated Complaint: SHORTNESS OF BREATH Time Seen by Provider: 02/21/18 02:35 Notes: Patient is a very pleasant 57-year-old female presents with complaint of shortness of breath. Started around last night. She did do nebulizer treatment around midnight. Breathing troubles continue and therefore she came to the ER. She has a lot of wheezing and tightness in her lung preciado. No chest pain. Vomited twice yesterday. She has been coughing quite a bit. No fevers at home. She was admitted to the hospital and released on January 22 due to difficulty breathing. She has a history of COPD and asthma. She is a former smoker. TRAVEL OUTSIDE OF THE [place] IN LAST 30 DAYS: No - Related Data Allergies/Adverse Reactions: benzonatate [From [employer]] Allergy (Verified 12/27/17 10:27) NSAIDS (Non-Steroidal Anti-Inflamma Allergy (Verified 12/27/17 10:27) Past Medical History - Social History Smoking Status: Former Smoker Frequency of alcohol use: None Drug Abuse: None Family History: COPD, DM, Hypertension - Past Medical History Cardiac Medical History: Reports: Hx Hypertension Pulmonary Medical History: Reports: Hx Asthma, Hx Bronchitis, Hx COPD, Hx Pneumonia Endocrine Medical History: Reports: Hx Diabetes Mellitus Type 2 Renal/ Medical History: Denies: Hx Peritoneal Dialysis GI Medical History: Denies: Hx Gastroesophageal Reflux Disease Musculoskeletal Medical History: Reports Hx Arthritis Psychiatric Medical History: Denies: Hx Depression - Immunizations Hx Diphtheria, Pertussis, Tetanus Vaccination: Yes Review of Systems - Review of Systems Notes: My Normal Review Basic REVIEW OF SYSTEMS: CONSTITUTIONAL : Denies fever, chills, or sweats. Denies recent illness. EENT: Denies eye, ear, throat, or mouth pain or symptoms. Denies nasal or sinus congestion. CARDIOVASCULAR: Denies chest pain. RESPIRATORY: Cough and difficulty breathing. GASTROINTESTINAL: Denies abdominal pain. 2 episodes of vomiting. MUSCULOSKELETAL: Denies neck or back pain or joint pain or swelling. SKIN: Denies rash or skin lesions. NEUROLOGICAL: Denies altered mental status or loss of consciousness. ALL OTHER SYSTEMS REVIEWED AND NEGATIVE. Physical Exam - Vital signs Vitals: Temp Pulse Resp BP Pulse Ox 97.2 F 110 H 24 H 118/69 92 02/21/18 02:26 02/21/18 02:26 02/21/18 02:26 02/21/18 02:26 02/21/18 02:26 - Notes Notes: General Appearance: Well nourished, alert, cooperative, mild to moderate acute distress, no obvious discomfort. Vitals: reviewed, See vital signs table. Head: no swelling or tenderness to the head Eyes: PERRL, EOMI, Conjuctiva clear Mouth: No decreasd moisture Throat: No tonsillar inflammation, No airway obstruction, No lymphadenopathy Neck: Supple, no neck tenderness, No thyromegaly Lungs: Diffuse wheezing, mild accessory muscle use, failure air exchange bilaterally. Heart: Tachycardic rate, Regular rythm, No murmur, no rub Abdomen: Normal BS, soft, No rigidity, No abdominal tenderness, No guarding, no rebound, no abdominal masses, no organomegaly Extremities: strength 5/5 in all extremities, good pulses in all extremities, no edema. Skin: warm, dry, appropriate color, no rash Neuro: speech clear, oriented x 3, normal affect, responds appropriately to questions. Course - Re-evaluation Re-evalutation: 02/21/18 03:31 Reevaluation patient still has a lot of tightness in the lung preciado with not very good air movement. She still has some accessory muscle use. She is speaking in 3-4 word sentences. I will give patient further breathing treatments to see if this helps improve her symptoms. 02/21/18 06:30 He still has significant wheezing and rhonchi and some accessory muscle use. I therefore called the hospitalist, Dr. Clark, and spoke with him about admission. He agrees to evaluate the patient for admission. Dictation of this chart was performed using voice recognition software; therefore, there may be some unintended grammatical errors. - Vital Signs Vital signs: Temp Pulse Resp BP Pulse Ox 97.2 F 110 H 14 121/57 L 97 02/21/18 02:26 02/21/18 02:26 02/21/18 05:01 02/21/18 05:00 02/21/18 05:01 - Laboratory Result Diagrams: 02/21/18 03:00 02/21/18 03:00 Laboratory results interpreted by me: 02/21/18 02/21/18 03:00 03:00 WBC 11.4 H MCV 76 L MCH 26.2 L RDW 15.6 H Potassium 3.4 L Glucose 128 H - EKG Interpretation by Me Additional EKG results interpreted by me: 02/21/18 03:36 EKG is reviewed and interpreted by me. EKG shows sinus tachycardia with rate of [address] segment elevation or depression. No ischemic T-wave inversions. IN interval, QRS duration, QTc intervals are within normal range. Old EKG for comparison is from January 16, 2018. Discharge - Discharge
[2018-02-21 03:26] LABS: ABSOLUTE EOSINOPHILS # (AUTO) 0.1 10^3/uL (0.0-0.6); ABSOLUTE LYMPHOCYTES (AUTO) 2.4 10^3/uL (0.5-4.7); ABSOLUTE MONOCYTES (AUTO) 0.7 10^3/uL (0.1-1.4); ABSOLUTE NEUT (AUTO) 8.1 10^3/uL (1.7-8.2); BASOPHILS % (AUTO) 0.2 % (0-2); EOSINOPHILS % (AUTO) 1.2 % (0-6); HEMATOCRIT 36.2 % (36.0-47.0); HEMOGLOBIN 12.5 g/dL (12.0-15.5); LYMPHOCYTES % (AUTO) 21.1 % (13-45); MEAN CORPUSCULAR HEMOGLOBIN 26.2 pg (27.0-33.4); MEAN CORPUSCULAR HGB CONC 34.7 g/dL (32.0-36.0); MEAN CORPUSCULAR VOLUME 76 fl (80-97); MONOCYTES % (AUTO) 6.3 % (3-13); PLATELET COUNT 445 10^3/uL (150-450); RED BLOOD COUNT 4.78 10^6/uL (3.72-5.28); RED CELL DISTRIBUTION WIDTH 15.6 % (11.5-14.0); SEGMENTED NEUTROPHILS % (AUTO) 71.2 % (42-78); TOTAL CELLS COUNTED % (AUTO) 100 %; WHITE BLOOD COUNT 11.4 10^3/uL (4.0-10.5)
[2018-02-21 03:28] LABS: VENOUS BLOOD BASE EXCESS 0.6 mmol/L; VENOUS BLOOD HCO3 25.5 mmol/L (20-32); VENOUS BLOOD PCO2 42.1 mmHg (35-63)
--- NOTE | 2018-02-21 03:29 | RADIOLOGY REPORT (SQ) ---
EXAM DESCRIPTION: XR CHEST 1 VIEW COMPLETED DATE/TME: 02/21/2018 02:35 CLINICAL HISTORY: 57 years Female, dyspnea COMPARISON: None. NUMBER OF VIEWS/TECHNIQUE: 1/AP FINDINGS: Adequate lung volume, clear parenchyma, normal cardiac silhouette, and grossly intact bony thorax. IMPRESSION: No acute cardiopulmonary findings.
[2018-02-21 03:30] LABS: VENOUS BLOOD PH 7.4 (7.30-7.42)
[2018-02-21] MEDS ORDERED: ALBUTEROL SULFATE 0.083% NEB 2.5 MG/3 ML AMPUL NEB ONE ×2 (03:31→03:58)
[2018-02-21 03:42] LABS: ANION GAP 15 (5-19); BLOOD UREA NITROGEN 15 mg/dL (7-20); CALCIUM 9.6 mg/dL (8.4-10.2); CARBON DIOXIDE 23 mmol/L (22-30); CHLORIDE 106 mmol/L (98-107); GLUCOSE 128 mg/dL (75-110); POTASSIUM 3.4 mmol/L (3.6-5.0); SODIUM 143.5 mmol/L (137-145)
[2018-02-21] MEDS ORDERED: POTASSIUM CHLORIDE 10 MEQ CAPSULE.ER PO ONE (03:55)
[2018-02-21] MEDS ORDERED: ACETAMINOPHEN 325 MG TABLET PO PRN (04:01)
--- NOTE | 2018-02-21 05:58 | PDOC H&P ---
History of Present Illness Admission Date/PCP: 02/21/18 04:35 ESVIN RIVERA PA-C Patient complains of: Shortness of breath History of Present Illness: ADDIE STEWART is a 57 year old female stenting to the emergency department with her son secondary to shortness of breath. Patient has a known past medical history of asthma with COPD and states for the past 3 days she has been having increased worsening of her shortness of breath. Normally she uses her nebulizer twice daily, yesterday she needed to use it 4 times with minimal relief at which point she decided to present to the emergency department for further workup and evaluation. Denies wearing oxygen at home. Denies chest pain. States she has been coughing more than usual with slight increase in sputum production. Denies fever, denies chills. Past Medical History Cardiac Medical History: Reports: Hypertension Pulmonary Medical History: Reports: Asthma, Bronchitis, Chronic Obstructive Pulmonary Disease (COPD), Pneumonia Endocrine Medical History: Reports: Diabetes Mellitus Type 2 GI Medical History: Denies: Gastroesophageal Reflux Disease Musculoskeltal Medical History: Reports: Arthritis Psychiatric Medical History: Denies: Depression Past Surgical History Past Surgical History: Reports: None Social History Smoking Status: Former Smoker Frequency of Alcohol Use: None Hx Recreational Drug Use: No Drugs: None Hx Prescription Drug Abuse: No Family History Family History: COPD, DM, Hypertension Parental Family History Reviewed: Yes Children Family History Reviewed: Yes Sibling(s) Family History Reviewed.: Yes Medication/Allergy Home Medications: Acetaminophen [Tylenol Extra Strength] 500 mg PO Q4HP PRN 01/17/18 Albuterol Sulfate [Proair HFA] 2 puff IH Q4HP PRN 01/17/18 Budesonide/Formoterol Fumarate [Symbicort HFA 160-4.5 mcg Inhaler 6 gm] 2 puff IH Q12 01/17/18 Carvedilol [Coreg 3.125 mg Tablet] 3.125 mg PO Q12 01/17/18 Diltiazem HCl [Cardizem LA] 240 mg PO Q12 01/17/18 Guaifenesin [Mucinex] 600 mg PO Q12 01/17/18 Ipratropium/Albuterol Sulfate [Duoneb 3 ml Ampul] 3 ml NEB RTQID 01/17/18 Loratadine [Claritin 10 mg Tablet] 10 mg PO DAILY 01/17/18 Metformin HCl [Glucophage 500 mg Tablet] 500 mg PO BID 01/17/18 Montelukast Sodium [Singulair 10 mg Tablet] 10 mg PO QPM 01/17/18 Prednisone [Deltasone 20 mg Tablet] 60 mg PO DAILY #20 tablet 01/22/18 Allergies/Adverse Reactions: benzonatate [From Wes Blanco] Allergy (Verified 12/27/17 10:27) NSAIDS (Non-Steroidal Anti-Inflamma Allergy (Verified 12/27/17 10:27) Review of Systems Constitutional: ABSENT: chills, fever(s), night sweats Cardiovascular: PRESENT: dyspnea on exertion. ABSENT: chest pain Respiratory: PRESENT: as per HPI, cough, dyspnea, sputum Gastrointestinal: ABSENT: abdominal pain, nausea, vomiting Physical Exam Vital Signs: Temp Pulse Resp BP Pulse Ox 97.2 F 110 H 24 H 118/69 92 02/21/18 02:26 02/21/18 02:26 02/21/18 02:26 02/21/18 02:26 02/21/18 02:26 General appearance: PRESENT: no acute distress, cooperative, obese Head exam: PRESENT: atraumatic Eye exam: PRESENT: conjunctiva pink, EOMI, PERRLA Mouth exam: PRESENT: moist, neck supple, tongue midline Neck exam: PRESENT: full ROM Respiratory exam: PRESENT: decreased breath sounds, unlabored, wheezes. ABSENT : crackles, rhonchi Cardiovascular exam: PRESENT: RRR, +S1, +S2 Pulses: PRESENT: normal carotid pulses Vascular exam: PRESENT: normal capillary refill GI/Abdominal exam: PRESENT: normal bowel sounds, soft. ABSENT: distended, tenderness Rectal exam: PRESENT: deferred Extremities exam: PRESENT: full ROM. ABSENT: calf tenderness, pedal edema Neurological exam: PRESENT: alert, awake, oriented to person, oriented to place , oriented to time, CN II-XII grossly intact Psychiatric exam: PRESENT: normal mood Results Laboratory Results: 02/21/18 02/21/18 02/21/18 03:00 03:00 03:00 WBC 11.4 H Hgb 12.5 VBG pH 7.40 VBG pCO2 42.1 VBG HCO3 25.5 Creatinine 0.77 Impressions: Chest X-Ray 02/21/18 02:35 IMPRESSION: No acute cardiopulmonary findings. Assessment & Plan - Diagnosis (1) Acute respiratory failure with hypoxemia Is this a current diagnosis for this admission?: Yes Plan: Secondary to patient's underlying asthma and COPD. Denies smoking. Patient to be admitted to telemetry secondary to tachypnea and tachycardia in emergency department. Continue with Solu-Medrol IV every 6 hours, DuoNeb's every 4 hours as needed. Continuous pulse ox monitoring. (2) Acute exacerbation of chronic obstructive pulmonary disease (COPD) Is this a current diagnosis for this admission?: Yes Plan: With underlying acute bronchitis. Will start patient on azithromycin 500 mg p.o. daily at this time. Will likely need home O2 evaluation prior to discharge. 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 Continue to monitor blood sugars before meals at bedtime (4) Hypertension Qualifiers: Is this a current diagnosis for this admission?: Yes Plan: Stable, continue to monitor and continue patient's home medications. - Time Time Spent: 30 to 50 Minutes Medications reviewed and adjusted accordingly: Yes Anticipated discharge: Home Within: within 36 hours
[2018-02-21] MEDS: IPRATROPIUM/ALBUTEROL 0.5-2.5 MG/3 ML AMPUL NEB PRN ×2 (07:54→17:13)
[2018-02-21] MEDS: AZITHROMYCIN 250 MG TABLET PO SCH (07:54)
[2018-02-21] MEDS: FAMOTIDINE 20 MG TABLET PO SCH ×2 (10:39→21:33)
[2018-02-21] MEDS ORDERED: LORATADINE 10 MG TABLET PO PRN (11:52)
[2018-02-21] MEDS ORDERED: CARVEDILOL 3.125 MG TABLET PO SCH (12:00)
[2018-02-21] MEDS ORDERED: DILTIAZEM HCL 240 MG CAPSULE.CR PO SCH (12:00)
[2018-02-21] MEDS: DILTIAZEM HCL 240 MG CAPSULE.CR PO SCH ×2 (12:27→21:33)
[2018-02-21] MEDS ORDERED: CARVEDILOL 3.125 MG TABLET PO ONE (14:00)
--- NOTE | 2018-02-21 15:14 | Progress Note ---
Provider Note Provider Note: The patient was admitted by my colleague Dr. Clark this morning. I have reviewed her labs and vitals. I have examined the patient. She appears acutely ill, but stable. Lung sounds are diminished bilaterally. Heart sounds are withing normal limits. She appears weak.
[2018-02-21] MEDS: MONTELUKAST SODIUM 10 MG TABLET PO SCH (17:13)
[2018-02-21] MEDS: METFORMIN HCL 500 MG TABLET PO SCH (17:13)
--- NOTE | 2018-02-21 17:32 | EKG REPORT ---
SEVERITY:- OTHERWISE NORMAL ECG - SINUS TACHYCARDIA : Confirmed by: Pennie Wilde MD 21-Feb-2018 17:31:55
[2018-02-21] MEDS: CARVEDILOL 3.125 MG TABLET PO SCH (21:33)
[2018-02-21] MEDS: BUDESONIDE/FORMOTEROL 160-4.5 MCG 60 PUFF/6 GM MDI IH SCH (21:33)
[2018-02-21] MEDS ORDERED: DILTIAZEM HCL 240 MG PO SCH (22:00)
[2018-02-22] MEDS: IPRATROPIUM/ALBUTEROL 0.5-2.5 MG/3 ML AMPUL NEB PRN ×4 (06:05→23:42)
[2018-02-22 06:33] LABS: HEMATOCRIT 36.1 % (36.0-47.0); HEMOGLOBIN 11.9 g/dL (12.0-15.5); MEAN CORPUSCULAR HEMOGLOBIN 25.3 pg (27.0-33.4); MEAN CORPUSCULAR VOLUME 77 fl (80-97); PLATELET COUNT 441 10^3/uL (150-450); RED BLOOD COUNT 4.72 10^6/uL (3.72-5.28); RED CELL DISTRIBUTION WIDTH 15.4 % (11.5-14.0)
[2018-02-22 06:51] LABS: ANION GAP 14 (5-19); BLOOD UREA NITROGEN 16 mg/dL (7-20); CALCIUM 10.2 mg/dL (8.4-10.2); CARBON DIOXIDE 24 mmol/L (22-30); CHLORIDE 109 mmol/L (98-107); GLUCOSE 166 mg/dL (75-110); POTASSIUM 3.6 mmol/L (3.6-5.0); SODIUM 146.6 mmol/L (137-145)
[2018-02-22] MEDS: AZITHROMYCIN 250 MG TABLET PO SCH (07:56)
--- NOTE | 2018-02-22 08:23 | Physician Advisory Note ---
Physician Advisor ProgressNote .: Pursuant to the plan for [facility], I have reviewed the medical record for this patient. Physician Advisor Statement: Excellent documentation of acute bronchitis w/COPD exac & findings supporting them, & of continued need for hospitalization last PM due to continued VS instability. Please consider documenting, if you agree: 1. Any O2 sats lower than 90% on RA, or <95% on 2L O2, in association w/her labored breathing, to support dx Acute Hypoxemic Resp Failure. What is her baseline RA O2 sat range? STatus: Medicaid pt, still tachycardic this AM despite Coreg & Diltiazem. Has needed 3 PRN neb tx.s in 24 hrs since on Obs status, in addition to other tx.s ordered. If pt not felt to be safe for d/c yet this AM, please document reason(s) & may change to Inpatient status. Thanks! CK
[2018-02-22] MEDS: FAMOTIDINE 20 MG TABLET PO SCH ×2 (09:51→22:32)
[2018-02-22] MEDS: PREDNISONE 20 MG TABLET PO SCH (09:52)
[2018-02-22] MEDS: DILTIAZEM HCL 240 MG CAPSULE.CR PO SCH ×2 (09:52→22:32)
[2018-02-22] MEDS: CARVEDILOL 3.125 MG TABLET PO SCH ×2 (09:52→22:32)
[2018-02-22] MEDS: METFORMIN HCL 500 MG TABLET PO SCH ×2 (09:53→18:50)
[2018-02-22] MEDS: BUDESONIDE/FORMOTEROL 160-4.5 MCG 60 PUFF/6 GM MDI IH SCH ×2 (09:53→22:32)
[2018-02-22] MEDS: MONTELUKAST SODIUM 10 MG TABLET PO SCH (18:50)
--- NOTE | 2018-02-23 05:39 | PDOC PROGRESS REPORT ---
Subjective Progress Note for:: 02/22/18 Subjective:: The patient is complaining of diarrhea. She has had 4 BM's this morning. Reason For Visit: COPD EXACERBATION,ACURE BRONCHITIS,DIARRHEA Physical Exam Vital Signs: Temp Pulse Resp BP Pulse Ox 98.5 F 91 17 127/65 H 97 02/23/18 03:00 02/23/18 03:00 02/23/18 03:00 02/23/18 03:00 02/23/18 03:00 Intake & Output 02/21/18 02/22/18 02/23/18 06:59 06:59 06:59 Intake Total 799 Balance 799 Weight 72.4 kg General appearance: PRESENT: no acute distress, cooperative, well-developed, well-nourished Respiratory exam: PRESENT: other - No increased work of breathing. No wheezes, rales, or rhonchi. No tactile fremitus.. ABSENT: rales, rhonchi, wheezes Cardiovascular exam: PRESENT: other - No lateral PMI. No thrills. Pulses: PRESENT: normal dorsalis pedis pul GI/Abdominal exam: PRESENT: normal bowel sounds, soft. ABSENT: distended, mass , organolmegaly, tenderness Rectal exam: PRESENT: deferred Extremities exam: ABSENT: clubbing, joint swelling, tenderness Musculoskeletal exam: ABSENT: deformity, dislocation, normal inspection, tenderness Neurological exam: PRESENT: alert, awake, oriented to person, oriented to place , oriented to time, oriented to situation, CN II-XII grossly intact. ABSENT: motor sensory deficit Psychiatric exam: PRESENT: appropriate affect, normal mood Skin exam: PRESENT: dry, intact, warm Results Impressions: Chest X-Ray 02/21/18 02:35 IMPRESSION: No acute cardiopulmonary findings. Assessment & Plan - Diagnosis (1) Diarrhea Is this a current diagnosis for this admission?: Yes Plan: C Diff ordered. (2) Acute exacerbation of chronic obstructive pulmonary disease (COPD) Is this a current diagnosis for this admission?: Yes Plan: Resolving. The patient is saturating in the mid-high 90's on room air. (3) Acute respiratory failure with hypoxemia Is this a current diagnosis for this admission?: Yes Plan: Resolved. (4) Asthma Qualifiers: Asthma severity: moderate persistent Asthma complication type: with acute exacerbation Is this a current diagnosis for this admission?: Yes Plan: Resolved. (5) Diabetes Qualifiers: Diabetes mellitus type: type 2 Diabetes mellitus correction insulin use: without correction use Diabetes mellitus complication status: without complication Qualified Code(s): E11.9 - Type 2 diabetes mellitus without complications Is this a current diagnosis for this admission?: Yes Plan: FSBS and SSI. (6) GERD (gastroesophageal reflux disease) Qualifiers: Esophagitis presence: without esophagitis Qualified Code(s): K21.9 - Gastro -esophageal reflux disease without esophagitis Is this a current diagnosis for this admission?: Yes Plan: PPI. (7) Hypertension Qualifiers: Hypertension type: essential hypertension Qualified Code(s): I10 - Essential (primary) hypertension Is this a current diagnosis for this admission?: Yes Plan: Home medications. - Time Time Spent with patient: 25-34 minutes
[2018-02-23] MEDS: IPRATROPIUM/ALBUTEROL 0.5-2.5 MG/3 ML AMPUL NEB PRN (08:05)
[2018-02-23] MEDS: AZITHROMYCIN 250 MG TABLET PO SCH (08:08)
[2018-02-23] MEDS: METFORMIN HCL 500 MG TABLET PO SCH ×2 (13:08→18:26)
[2018-02-23] MEDS: CARVEDILOL 3.125 MG TABLET PO SCH ×2 (13:09→21:03)
[2018-02-23] MEDS: DILTIAZEM HCL 240 MG CAPSULE.CR PO SCH ×2 (13:09→21:04)
[2018-02-23] MEDS: PREDNISONE 20 MG TABLET PO SCH (13:09)
[2018-02-23] MEDS: BUDESONIDE/FORMOTEROL 160-4.5 MCG 60 PUFF/6 GM MDI IH SCH ×2 (13:10→21:03)
[2018-02-23] MEDS: FAMOTIDINE 20 MG TABLET PO SCH ×2 (13:10→21:03)
[2018-02-23] MEDS: MONTELUKAST SODIUM 10 MG TABLET PO SCH (18:26)
--- NOTE | 2018-02-23 18:46 | PDOC PROGRESS REPORT ---
Subjective Progress Note for:: 02/23/18 Subjective:: This is 57 years old black female patient admitted for shortness of breath secondary to acute on chronic COPD exacerbation. Patient reports this despite using her home breathing treatment continues to have shortness of breath. Her admission her shortness of breath is relatively better but still she is wheezing and she is in mild to moderate respiratory distress. Reason For Visit: COPD EXACERBATION,ACURE BRONCHITIS,DIARRHEA Physical Exam Vital Signs: Temp Pulse Resp BP Pulse Ox 98.3 F 81 18 142/81 H 98 02/23/18 16:01 02/23/18 16:01 02/23/18 16:01 02/23/18 16:01 02/23/18 16:01 Intake & Output 02/22/18 02/23/18 02/24/18 06:59 06:59 06:59 Intake Total 1121 680 Balance 1121 680 Weight 72.4 kg General appearance: PRESENT: other - Mild to moderate respiratory distress Head exam: PRESENT: atraumatic Eye exam: PRESENT: conjunctiva pink Mouth exam: PRESENT: moist Respiratory exam: PRESENT: wheezes Cardiovascular exam: PRESENT: RRR. ABSENT: diastolic murmur, rubs, systolic murmur GI/Abdominal exam: PRESENT: normal bowel sounds, soft. ABSENT: distended, guarding, mass, organolmegaly, rebound, tenderness Neurological exam: PRESENT: alert, awake, oriented to time, oriented to situation Psychiatric exam: PRESENT: normal mood Results Impressions: Chest X-Ray 02/21/18 02:35 IMPRESSION: No acute cardiopulmonary findings. Assessment & Plan - Diagnosis (1) Acute exacerbation of chronic obstructive pulmonary disease (COPD) Is this a current diagnosis for this admission?: Yes Plan: Continue current regimen (2) Type 2 diabetes mellitus Is this a current diagnosis for this admission?: Yes Plan: Continue sliding scale and home medication (3) Hypertension Is this a current diagnosis for this admission?: Yes Plan: Continue home medication
[2018-02-24] MEDS: IPRATROPIUM/ALBUTEROL 0.5-2.5 MG/3 ML AMPUL NEB PRN (05:15)
[2018-02-24] MEDS: METFORMIN HCL 500 MG TABLET PO SCH (09:28)
[2018-02-24] MEDS: PREDNISONE 20 MG TABLET PO SCH (09:28)
[2018-02-24] MEDS: FAMOTIDINE 20 MG TABLET PO SCH (09:28)
[2018-02-24] MEDS: AZITHROMYCIN 250 MG TABLET PO SCH (09:28)
[2018-02-24] MEDS: CARVEDILOL 3.125 MG TABLET PO SCH (09:28)
[2018-02-24] MEDS: BUDESONIDE/FORMOTEROL 160-4.5 MCG 60 PUFF/6 GM MDI IH SCH (09:29)
--- NOTE | 2018-02-24 11:19 | PDOC DISCHARGE SUMMARY ---
General - Admit/Disc Date/PCP Admission Date/Primary Care Provider: 02/22/18 14:15 ESVIN RIVERA PA-C Discharge Date: 02/24/18 - Discharge Diagnosis (1) Acute exacerbation of chronic obstructive pulmonary disease (COPD) Is this a current diagnosis for this admission?: Yes (2) Type 2 diabetes mellitus Is this a current diagnosis for this admission?: Yes (3) Hypertension Is this a current diagnosis for this admission?: Yes - Additional Information Resuscitation Status: Full Code Home Medications: Acetaminophen [Tylenol Extra Strength] 1,000 mg PO DAILYP PRN 01/17/18 Albuterol Sulfate [Proair HFA] 2 puff IH Q4HP PRN 01/17/18 Budesonide/Formoterol Fumarate [Symbicort HFA 160-4.5 mcg Inhaler 6 gm] 2 puff IH Q12 01/17/18 Carvedilol [Coreg 3.125 mg Tablet] 3.125 mg PO Q12 01/17/18 Diltiazem HCl [Cardizem LA] 240 mg PO Q12 01/17/18 Ipratropium/Albuterol Sulfate [Duoneb 3 ml Ampul] 3 ml NEB RTQID 01/17/18 Loratadine [Claritin 10 mg Tablet] 10 mg PO DAILYP PRN 01/17/18 Metformin HCl [Glucophage 500 mg Tablet] 500 mg PO BID 01/17/18 Montelukast Sodium [Singulair 10 mg Tablet] 10 mg PO QPM 01/17/18 History of Present Illness History of Present Illness: ADDIE STEWART is a 57 year old female presenting to the emergency department with her son secondary to shortness of breath. Patient has a known past medical history of asthma with COPD and states for the past 3 days she has been having increased worsening of her shortness of breath. Normally she uses her nebulizer twice daily, yesterday she needed to use it 4 times with minimal relief at which point she decided to present to the emergency department for further workup and evaluation. Denies wearing oxygen at home. Denies chest pain. States she has been coughing more than usual with slight increase in sputum production. Denies fever, denies chills. Hospital Course Hospital Course: This is 57 years old black female patient admitted for shortness of breath secondary to acute on chronic COPD exacerbation. At that admission patient states her shortness of breath is getting worse despite using her home breathing treatment. It is a hostile patient has been managed with supplemental oxygen, bronchodilator and Solu-Medrol. This morning I seen patient sitting on chair and enjoying her breakfast. She reports his shortness of breath has been subsiding. Her vital signs and her blood works are stable. Patient is good to go home. I will continue all home medication and I will send her with prednisone 40 mg p.o. daily for 7 days. Physical Exam Vital Signs: Temp Pulse Resp BP Pulse Ox 98.7 F 92 18 131/75 H 97 02/24/18 08:00 02/24/18 08:00 02/24/18 08:00 02/24/18 08:00 02/24/18 08:00 Intake & Output 02/23/18 02/24/18 02/25/18 06:59 06:59 06:59 Intake Total 1121 2166 Balance 1121 2166 Weight 72.4 kg 75 kg General appearance: PRESENT: no acute distress Head exam: PRESENT: atraumatic Eye exam: PRESENT: conjunctiva pink Mouth exam: PRESENT: moist Neck exam: ABSENT: carotid bruit, JVD, lymphadenopathy, thyromegaly Respiratory exam: PRESENT: wheezes - Mild Cardiovascular exam: PRESENT: RRR. ABSENT: diastolic murmur, rubs, systolic murmur GI/Abdominal exam: PRESENT: normal bowel sounds, soft. ABSENT: distended, guarding, mass, organolmegaly, rebound, tenderness Extremities exam: PRESENT: full ROM. ABSENT: calf tenderness, clubbing, pedal edema Neurological exam: PRESENT: alert, awake, oriented to time, oriented to situation Psychiatric exam: PRESENT: normal mood Results Impressions: Chest X-Ray 02/21/18 02:35 IMPRESSION: No acute cardiopulmonary findings. Qualifiers - * PATIENT BEING DISCHARGED WITH ANY OF THE FOLLOWING DIAGNOSIS: No
[2018-02-24 12:05] VITALS: BP 136/75
== END 2018-02-24 14:33 | disposition home or self-care (01) | DRG 192 ==
LOC: ER 02:19 → EH 04:35 → 5 20:00 → OBSVTOIN 02-22 14:15
PROVIDERS: ADMIT Family Medicine; ATTEND Family Medicine
PROC: 3E0F73Z Introduction of Anti-inflammatory into Respiratory Tract, Via Natural or Artificial Opening (ICD-10-PCS; principal; 2018-02-22)
DX: J44.1 Chronic obstructive pulmonary disease with (acute) exacerbation (principal); J44.0 Chronic obstructive pulmonary disease with (acute) lower respiratory infection; J20.9 Acute bronchitis, unspecified; E11.9 Type 2 diabetes mellitus without complications; I10 Essential (primary) hypertension; M19.90 Unspecified osteoarthritis, unspecified site; K21.9 Gastro-esophageal reflux disease without esophagitis; Z87.891 Personal history of nicotine dependence; Z88.8 Allergy status to other drugs, medicaments and biological substances; Z79.899 Other long term (current) drug therapy; Z79.52 Long term (current) use of systemic steroids
CPT/HCPCS: 36415; 71045; 80048; 82803; 82962; 85025; 85027; 87493; 93005; 93010; 94640; 99285; G0378; J2930; J3475; J3490; J7512; J7620

== ENCOUNTER 2018-03-12 22:47 | Emergency (ER) | payer MEDICAID ==
[2018-03-13] MEDS ORDERED: IPRATROPIUM/ALBUTEROL 0.5-2.5 MG/3 ML AMPUL NEB ONE (00:05)
[2018-03-13] MEDS ORDERED: PREDNISONE 20 MG TABLET PO ONE (00:05)
[2018-03-13] MEDS ORDERED: ALBUTEROL SULFATE 0.083% NEB 2.5 MG/3 ML AMPUL NEB ONE ×3 (00:05→01:30)
--- NOTE | 2018-03-13 00:09 | ER Document Report ---
ED Medical Screen (RME) - General Chief Complaint: Shortness Of Breath Stated Complaint: SHORT OF BREATH,COUGHING Time Seen by Provider: 03/13/18 00:05 Mode of Arrival: Ambulatory Information source: Patient Notes: 57-year-old female complaining of worsening of her usual cough. The albuterol nebulizer that she used before coming to the emergency room helped her a little bit but she wanted us to make sure and check her lungs to see if she is wheezing like when she was discharged on February 24. She also had an episode of left upper chest pain that radiated into the left shoulder and down her left arm at 9:30 PM that only lasted a few seconds. She feels the same thing when she coughs at this time. She has expiratory wheezing bilateral. TRAVEL OUTSIDE OF THE [place] IN LAST 30 DAYS: No - Related Data Allergies/Adverse Reactions: benzonatate [From Tessalpalmira Blanco] Allergy (Verified 02/21/18 10:09) RCING HEARTBEART NSAIDS (Non-Steroidal Anti-Inflamma Allergy (Verified 02/21/18 10:09) RACING HEARTBEAT Past Medical History - Social History Frequency of alcohol use: None Drug Abuse: None - Past Medical History Cardiac Medical History: Reports: Hx Hypertension Pulmonary Medical History: Reports: Hx Asthma, Hx Bronchitis, Hx COPD, Hx Pneumonia Endocrine Medical History: Reports: Hx Diabetes Mellitus Type 2 Renal/ Medical History: Denies: Hx Peritoneal Dialysis GI Medical History: Denies: Hx Gastroesophageal Reflux Disease Musculoskeltal Medical History: Reports Hx Arthritis Psychiatric Medical History: Denies: Hx Depression - Immunizations Hx Diphtheria, Pertussis, Tetanus Vaccination: Yes History of Influenza Vaccine for 04/2017 - 09/2017 Season: Yes Influenza Administration Date for 04/2017 - 09/2017 Season: 04/12/17 Physical Exam - Vital signs Vitals: Temp Pulse Resp BP Pulse Ox 97.7 F 100 24 H 116/70 96 03/12/18 23:07 03/12/18 23:07 03/12/18 23:07 03/12/18 23:07 03/12/18 23:07 Course - Vital Signs Vital signs: Temp Pulse Resp BP Pulse Ox 97.7 F 100 24 H 116/70 96 03/12/18 23:07 03/12/18 23:07 03/12/18 23:07 03/12/18 23:07 03/12/18 23:07 Doctor's Discharge - Discharge Referrals: BONIFACIO MELENDEZ, RAILROADER-C [Primary Care Provider] - Follow up as needed
[2018-03-13 00:24] LABS: ABSOLUTE BASOPHILS # (AUTO) 0.1 10^3/uL (0.0-0.2); ABSOLUTE EOSINOPHILS # (AUTO) 1.4 10^3/uL (0.0-0.6); ABSOLUTE LYMPHOCYTES (AUTO) 2.2 10^3/uL (0.5-4.7); ABSOLUTE MONOCYTES (AUTO) 0.8 10^3/uL (0.1-1.4); ABSOLUTE NEUT (AUTO) 4.8 10^3/uL (1.7-8.2); BASOPHILS % (AUTO) 1.2 % (0-2); EOSINOPHILS % (AUTO) 14.8 % (0-6); HEMATOCRIT 37.2 % (36.0-47.0); HEMOGLOBIN 12.4 g/dL (12.0-15.5); MEAN CORPUSCULAR HGB CONC 33.4 g/dL (32.0-36.0); MEAN CORPUSCULAR VOLUME 78 fl (80-97); MONOCYTES % (AUTO) 8.7 % (3-13); PLATELET COUNT 304 10^3/uL (150-450); RED BLOOD COUNT 4.79 10^6/uL (3.72-5.28); RED CELL DISTRIBUTION WIDTH 15.2 % (11.5-14.0); SEGMENTED NEUTROPHILS % (AUTO) 51.3 % (42-78); TOTAL CELLS COUNTED % (AUTO) 100 %; WHITE BLOOD COUNT 9.3 10^3/uL (4.0-10.5)
--- NOTE | 2018-03-13 00:26 | ER Document Report ---
ED General - General Chief Complaint: Shortness Of Breath Stated Complaint: SHORT OF BREATH,COUGHING Time Seen by Provider: 03/13/18 00:05 Mode of Arrival: Ambulatory Notes: Patient is a pleasant 57-year-old female presents with complaint of wheezing and coughing. She says she has history of recurrent bronchitis. She is a former smoker. She was using her inhaler at home and night cough. When she coughs she developed a sharp pain that went into her left shoulder blade. She occasionally has a pain again whenever she coughs. No fevers. No vomiting. No continuous chest pain. No other complaints at this time. TRAVEL OUTSIDE OF THE [place] IN LAST 30 DAYS: No - Related Data Allergies/Adverse Reactions: benzonatate [From Common [employer]ulum[employer]] Allergy (Verified 02/21/18 10:09) RCING HEARTBEART NSAIDS (Non-Steroidal Anti-Inflamma Allergy (Verified 02/21/18 10:09) RACING HEARTBEAT Past Medical History - General Information source: Patient - Social History Smoking Status: Former Smoker Frequency of alcohol use: None Drug Abuse: None Family History: COPD, DM, Hypertension Patient has suicidal ideation: No Patient has homicidal ideation: No - Past Medical History Cardiac Medical History: Reports: Hx Hypertension Pulmonary Medical History: Reports: Hx Asthma, Hx Bronchitis, Hx COPD, Hx Pneumonia Endocrine Medical History: Reports: Hx Diabetes Mellitus Type 2 Renal/ Medical History: Denies: Hx Peritoneal Dialysis GI Medical History: Denies: Hx Gastroesophageal Reflux Disease Musculoskeletal Medical History: Reports Hx Arthritis Psychiatric Medical History: Denies: Hx Depression - Immunizations Hx Diphtheria, Pertussis, Tetanus Vaccination: Yes Review of Systems - Review of Systems Notes: My Normal Review Basic REVIEW OF SYSTEMS: CONSTITUTIONAL : Denies fever, chills, or sweats. Denies recent illness. EENT: Denies eye, ear, throat, or mouth pain or symptoms. Denies nasal or sinus congestion. CARDIOVASCULAR: sharp pain in the left upper chest and shoulder that occurs with coughing. RESPIRATORY: Current cough. Wheezing. GASTROINTESTINAL: Denies abdominal pain. Denies nausea, vomiting, or diarrhea. MUSCULOSKELETAL: Denies neck or back pain or joint pain or swelling. SKIN: Denies rash or skin lesions. NEUROLOGICAL: Denies altered mental status or loss of consciousness. Denies headache. Denies weakness or paralysis or loss of use of either side. Denies problems with gait or speech. Denies sensory or motor loss. ALL OTHER SYSTEMS REVIEWED AND NEGATIVE. Physical Exam - Vital signs Vitals: Temp Pulse Resp BP Pulse Ox 97.7 F 100 24 H 116/70 96 03/12/18 23:07 03/12/18 23:07 03/12/18 23:07 03/12/18 23:07 03/12/18 23:07 - Notes Notes: General Appearance: Well nourished, alert, cooperative, no acute distress, no obvious discomfort. Well appearing. Vitals: reviewed, See vital signs table. Head: no swelling or tenderness to the head Eyes: PERRL, EOMI, Conjuctiva clear Mouth: No decreasd moisture Lungs: Wheezing and rhonchi with fair air exchange. Heart: Normal rate, Regular rythm, No murmur, no rub Abdomen: Normal BS, soft, No rigidity, No abdominal tenderness, No guarding, no rebound, no abdominal masses, no organomegaly Extremities: strength 5/5 in all extremities, good pulses in all extremities, no swelling or tenderness in the extremities, no edema. Skin: warm, dry, appropriate color, no rash Neuro: speech clear, oriented x 3, normal affect, responds appropriately to questions. Course - Re-evaluation Re-evalutation: 03/13/18 03:26 Reevaluation the patient's lung preciado continued to be much clear. She is good air movement. She still has a little wheezing but is much improved comparison to before. She is in no distress. Oxygen saturation is normal. She has no tachypnea. No accessory muscle use. Feel she is safe to be discharged home. I do not suspect the pain into her left shoulder is cardiac related being the pain started when she was coughing and only occurs when she moves left shoulder or coughs. Chest x-ray shows no evidence of pneumonia. Patient is a diabetic but seems to be well-controlled metformin. I will place her on 40 mg prednisone for the next few days as I think this will help with her recurrent COPD and bronchitis. I informed her that if her blood sugar starts being above 350 that she should return to ER for evaluation. Encouraged her return to ER immediately if she has difficulty breathing, recurrent wheezing not responding to inhalers, or she feels she is worsening in any way. Patient agrees with plan will be discharged home. Dictation of this chart was performed using voice recognition software; therefore, there may be some unintended grammatical errors. - Vital Signs Vital signs: Temp Pulse Resp BP Pulse Ox 97.7 F 100 23 H 129/69 H 98 03/12/18 23:07 03/12/18 23:07 03/13/18 03:01 03/13/18 03:01 03/13/18 03:01 - Laboratory Result Diagrams: 03/13/18 00:15 03/13/18 00:15 Laboratory results interpreted by me: 03/13/18 03/13/18 00:15 00:15 MCV 78 L MCH 26.0 L RDW 15.2 H Eosinophils % 14.8 H Absolute Eosinophils 1.4 H Sodium 149.0 H Potassium 3.4 L Chloride 110 H Glucose 141 H - EKG Interpretation by Me Additional EKG results interpreted by me: 03/13/18 00:26 EKG is reviewed and interpreted by me. EKG shows sinus rhythm with rate of [address] segment elevation or depression. No ischemic T-wave inversions. MO interval, QRS duration, QTc intervals are within normal range. Old EKG for comparison is from February 21, 2018. Discharge - Discharge Clinical Impression: COPD exacerbation Condition: Good Disposition: HOME, SELF-CARE Additional Instructions: BRONCHITIS WITH BRONCHOSPASM (WHEEZING): You have bronchitis with bronchospasm (wheezing). Sometimes people develop wheezing with a chest cold. This occurs either because of an underlying tendency toward asthma or because the virus itself irritates the bronchial tubes. This irritation causes cough, shortness of breath, and wheezing. Emergency treatment of bronchospasm may include adrenaline shots or bronchodilator aerosol. You may feel lightheaded and have a rapid pulse for an hour or two. Rest and get plenty of fluids. At home, we'll treat you with a bronchodilator inhaler. Corticosteroids may be required for some patients. Until you recover, avoid chemical fumes, dusts, pollens, and exercising in very cold or dry air. If you smoke, stop now! Most cases of bronchitis get better without antibiotics. We prescribe antibiotics when we believe bacteria are damaging your airways, or if there's high risk the bronchitis will worsen into pneumonia. Increase your fluid intake. A cool mist humidifier may make your lungs more comfortable. An expectorant (cough medicine that loosens phlegm) can help. Repeated episodes of bronchitis and bronchospasm may result in lung damage -- for example, chronic bronchitis, recurrent pneumonias, or emphysema. If you develop a fever, increased wheezing, chest pain, or severe shortness of breath, you should contact the doctor immediately. INHALED BRONCHODILATORS: You have received a treatment of and/or prescription for an inhaled bronchodilator -- a medication which stimulates the airways in the lung to dilate. This improves the flow of air in asthma, bronchitis, and emphysema. These medicines have some similarity to adrenaline, and can cause similar side effects: shakiness, racing heart, and a sense of nervousness. These side effects decrease with time. Contact your doctor if these side effects are severe. Do not over-use the medicine. Too-frequent use of the inhaler may make it ineffective. Call your doctor if the inhaler is not controlling your symptoms at the prescribed doses. STEROID MEDICATION: You have been given an injection of or oral medicine of the cortisone/ steroid class. This medication is used to control inflammation or allergy. Krystian t is usually only given for a short period of time, until the acute process subsides. There are usually no side effects from short-term use of cortisone-like medications. Some persons feel an increased sense of well-being and are not sleepy at bedtime. Long-term use of cortisone medications is best avoided, unless required for a severe condition. If your condition does not remit, or relapses after the course of corticosteroid medication, you should consult your physician. FOLLOW-UP CARE: If you have been referred to a physician for follow-up care, call the physician s office for an appointment as you were instructed or within the next two days. If you experience worsening or a significant change in your symptoms, notify the physician immediately or return to the Emergency Department at any time for re-evaluation. Please continue to use your nebulizer treatments as prescribed. Please return to the ER immediately if you develop worsening difficulty breathing, recurrent wheezing, or feel that you are worsening in any way. The steroids may increase your blood sugar. Please return to the ER if your blood sugar in increase above 350. Prescriptions: Prednisone [Deltasone 20 mg Tablet] 2 tab PO DAILY 4 Days tablet Referrals: BONIFACIO MELENDEZ FNP-C [Primary Care Provider] - 03/16/18
--- NOTE | 2018-03-13 00:27 | RADIOLOGY REPORT (SQ) ---
XR CHEST 2 VIEWS HISTORY: Worsening cough. Chest pain. COMPARISON: 1218 FINDINGS/IMPRESSION: Normal cardiomediastinal contours. Lungs are clear. No pleural effusion or pneumothorax is seen. No acute osseous findings.
[2018-03-13] MEDS: MAGNESIUM SULFATE/D5W 1 GM/100 ML RTUPB IV SCH ×2 (01:01→01:34)
[2018-03-13 01:02] LABS: ALANINE AMINOTRANSFERASE 25 U/L (9-52); ALBUMIN 3.8 g/dL (3.5-5.0); ALKALINE PHOSPHATASE 90 U/L (38-126); ANION GAP 13 (5-19); ASPARTATE AMINO TRANSFERASE 16 U/L (14-36); BILIRUBIN,DIRECT 0.3 mg/dL (0.0-0.4); BILIRUBIN,TOTAL 0.3 mg/dL (0.2-1.3); BLOOD UREA NITROGEN 11 mg/dL (7-20); CALCIUM 9.6 mg/dL (8.4-10.2); CARBON DIOXIDE 26 mmol/L (22-30); CHLORIDE 110 mmol/L (98-107); CREATINE KINASE 59 U/L (30-135); GLUCOSE 141 mg/dL (75-110); POTASSIUM 3.4 mmol/L (3.6-5.0); TOTAL PROTEIN 6.6 g/dL (6.3-8.2)
[2018-03-13 01:12] LABS: CREATINE KINASE MB 0.48 ng/mL (<4.55)
[2018-03-13 01:15] LABS: TROPONIN I < 0.012 ng/mL
[2018-03-13 03:03] VITALS: BP 129/69
--- NOTE | 2018-03-13 05:47 | EKG REPORT ---
SEVERITY:- NORMAL ECG - SINUS RHYTHM : Confirmed by: Raman Hernandez MD 13-Mar-2018 05:46:34
== END 2018-03-13 03:38 | disposition home or self-care (01) ==
LOC: ER 22:47
DX: J44.1 Chronic obstructive pulmonary disease with (acute) exacerbation (principal); R06.02 Shortness of breath; R05 Cough; Z87.891 Personal history of nicotine dependence; I10 Essential (primary) hypertension
CPT/HCPCS: 93005; 94640 ×2; 99285; 96365; 36415; 82553; 82550; 85025; 80053; 84484; 71046; 93010; J3475; J7512; J7620

== ENCOUNTER → 2018-03-12 | Outpatient (CLI) | payer MEDICAID ==
--- NOTE | 2018-03-12 11:59 | WOMENS IMAGING REPORT ---
EXAM DESCRIPTION: BILAT SCREENING MAMMO W/CAD COMPLETED DATE/TIME: 03/12/2018 11:49 am REASON FOR STUDY: ROUTINE SCREENING Z12.31 Z12.31 ENCNTR SCREEN MAMMOGRAM FOR MALIGNANT NEOPLASM OF KANDICE COMPARISON: 03/10/2017 TECHNIQUE: Standard craniocaudal and mediolateral oblique views of each breast recorded using [employer] acquisition. LIMITATIONS: None. FINDINGS: No masses, calcifications or architectural distortion. No areas of suspicion. Read with the assistance of CAD. [facility] - R2 Cenova Version 1.3 .[facility] - R2 Cenova Version 1.3 .[facility] - R2 Cenova Version 2.4 .[facility] - R2 Cenova Version 2.4 .[facility] - R2 Lye Boiler Version 9.2 IMPRESSION: NORMAL MAMMOGRAM. BIRADS 1. BREAST DENSITY: c. The breasts are heterogeneously dense, which may obscure small masses. BIRAD: 1 NEGATIVE RECOMMENDATION: ROUTINE SCREENING Please continue yearly bilateral screening in March 2019. Consider bilateral screening tomosynth esis given heterogeneously dense tissue bilaterally COMMENT: The patient has been notified of the results by letter per SA requirements. Additional no tification policies are in place for contacting patient with suspicious or incomplete findings. Quality ID #[id number]: The [employer] recommends an annual screening mammogram for women aged 40 years or over. This facility utilizes a reminder system to ensure that all patients receive reminder letters, and/or direct phone calls for appointments. This includes reminders for routine scr eening mammograms, diagnostic mammograms, or other Breast Imaging Interventions when appropriate. Th is patient will be placed in the appropriate reminder system. The [employer] (ACR) has developed recommendations for screening MRI of the breast s in certain patient populations, to be used in conjunction with mammography. Breast MRI surveillanc e may be appropriate for women with more than 20% lifetime risk of developing breast cancer as deter mined by genetic testing, significant family history of the disease, or history of mantle radiation f or Hodgkins Disease. ACR Practice Guidelines 2008. TECHNICAL DOCUMENTATION: FINDING NUMBER: (1) ASSESSMENT: (1) JOB ID: [id number] [employer]- All Rights Reserved Reading location - IP/workstation name: [facility]
== END ==
LOC: WI 11:47
PROVIDERS: ATTEND Nurse Practitioner Family
DX: Z12.31 Encounter for screening mammogram for malignant neoplasm of breast (principal)
CPT/HCPCS: 77067

== ENCOUNTER 2018-04-19 08:17 | Emergency (ER) | payer MEDICAID ==
[2018-04-19] MEDS ORDERED: METHYLPREDNISOLONE INJ 125 MG/2 ML SDV IV ONE (08:40)
[2018-04-19] MEDS ORDERED: NORMAL SALINE 1000 ML 1,000 ML IV ONE (08:40)
[2018-04-19] MEDS ORDERED: IPRATROPIUM/ALBUTEROL 0.5-2.5 MG/3 ML AMPUL NEB ONE (08:40)
--- NOTE | 2018-04-19 08:41 | ER Document Report ---
ED General - General Chief Complaint: Shortness Of Breath Stated Complaint: SHORTNESS OF BREATH Time Seen by Provider: 04/19/18 08:33 TRAVEL OUTSIDE OF THE [place] IN LAST 30 DAYS: No - HPI Notes: Patient is a 57-year-old female with a history of type 2 diabetes, asthma, COPD who presents to the ED complaining of nasal congestion/discharge, dry semi- productive cough, postnasal drip, wheezing times 1-2 days. Patient states that she has been using her breathing treatments which do seem to help. Patient states that she felt warm yesterday, but does not have a documented temperature. She is otherwise eating and drinking without difficulties. She is urinating normally and having normal. Patient states that she is still able to ambulate without any dyspnea on exertion. Denies any prolonged immobilization, distance travel, recent surgery/trauma, personal cancer history , hormone use, smoking, or previous DVT/PE. Denies any headache, neck pain, sore throat, chest pain, palpitations, syncope, abdominal pain, nausea/vomiting/ diarrhea, urinary retention, dysuria, hematuria, or rash. - Related Data Allergies/Adverse Reactions: benzonatate [From Tessalon Perljoe] Allergy (Verified 04/19/18 08:19) RCING HEARTBEART NSAIDS (Non-Steroidal Anti-Inflamma Allergy (Verified 04/19/18 08:19) RACING HEARTBEAT Past Medical History - Social History Smoking Status: Former Smoker Family History: COPD, DM, Hypertension - Past Medical History Cardiac Medical History: Reports: Hx Hypertension Pulmonary Medical History: Reports: Hx Asthma, Hx Bronchitis, Hx COPD, Hx Pneumonia Endocrine Medical History: Reports: Hx Diabetes Mellitus Type 2 Renal/ Medical History: Denies: Hx Peritoneal Dialysis GI Medical History: Denies: Hx Gastroesophageal Reflux Disease Musculoskeletal Medical History: Reports Hx Arthritis Psychiatric Medical History: Denies: Hx Depression - Immunizations Hx Diphtheria, Pertussis, Tetanus Vaccination: Yes Review of Systems - Review of Systems -: Yes All other systems reviewed and negative Physical Exam - Vital signs Vitals: Temp Pulse Resp BP Pulse Ox 97.4 F 118 H 16 127/59 H 94 04/19/18 08:22 04/19/18 08:22 10 08:22 04/19/18 08:22 04/19/18 08:22 - Notes Notes: PHYSICAL EXAMINATION: GENERAL: Well-appearing, well-nourished and in no acute distress. I was able to see the patient ambulate from the waiting room to radiology and to her room w /o any difficulties. She is speaking in complete sentences. HEAD: Atraumatic, normocephalic. EYES: Pupils equal round and reactive to light, extraocular movements intact, sclera anicteric, conjunctiva are normal. ENT: Nares patent and with clear discharge. oropharynx clear without exudates. No tonsilar hypertrophy or erythema. Moist mucous membranes. TM's wnl. NECK: Normal range of motion, supple without lymphadenopathy. No rigidity/ meningismus. LUNGS: wheezing b/l. dry cough heard. No retractions. HEART: Regular rate and rhythm without murmurs, rubs, gallops. ABDOMEN: Soft, nontender, nondistended abdomen. No guarding, no rebound. No masses appreciated. Normal bowel sounds present. No CVA tenderness bilaterally. Musculoskeletal: FROM to passive/active. Strength 5+/5. Eleni neg. No asymmetry to LE's. Extremities: No cyanosis, clubbing, or edema b/l. Peripheral pulses 2+. Capillary refill less than 3 seconds. NEUROLOGICAL: Normal speech, normal gait. PSYCH: Normal mood, normal affect. SKIN: Warm, Dry, normal turgor, no rashes or lesions noted. Course - Re-evaluation Re-evalutation: 04/19/18 08:47 Pt's glucose has been well-controlled per patient <200 while being on steroids intermittently over the past month. Pt will be given solumedrol, magnesium, duoneb, and fluids. CXR and labs pending. I do suspect this to be upper respiratory vs cardiac at this time. 04/19/18 10:08 Patient is an afebrile, well-hydrated 40-year-old male who presents to the ED with acute asthma/copd exacerbation with URI, suspect viral. Vitals are acceptable without any significant tachycardia, tachypnea, or hypoxia. PE is otherwise unremarkable. Patient is nontoxic-appearing and is tolerating p.o. without any difficulties. CBC, CMP, EKG/cardiac enzyme, chest x-ray are all unremarkable for any acute pathology. Patient does not have any chest pain, dyspnea, or ongoing shortness of breath. Pt did receive duoneb, mag, and solumedrol which resolved pt's symptoms for now. Patient's presentation and symptomatology creates low suspicion for ACS, PE, pneumothorax, pericarditis, dissection, respiratory compromise, severe dehydration, sepsis, meningitis, or other systemic emergent condition at this time. Patient is aware that his condition can change from initial presentation and he needs to monitor symptoms closely and seek medical attention for any acute changes. Pt is feeling better and would like to go home. I will send her with 2 more days of prednisone, but she is to watch her sugars closely. Pt has been able to maintain her glucose within acceptable limits when on steroids in the past. Recommend conservative measures for symptoms. Recheck with your PCM in 2-3 days. Return to the ED with any worsening/concerning symptoms otherwise as reviewed in discharge. Patient is in agreement. - Vital Signs Vital signs: Temp Pulse Resp BP Pulse Ox 97.4 F 118 H 23 H 123/55 L 99 04/19/18 08:22 04/19/18 08:22 04/19/18 09:24 04/19/18 09:24 04/19/18 09:24 - Laboratory Result Diagrams: 04/19/18 08:46 04/19/18 08:46 Laboratory results interpreted by me: 04/19/18 04/19/18 08:46 08:46 Hct 35.7 L MCV 79 L MCH 26.6 L RDW 14.3 H Glucose 224 H Discharge - Discharge Clinical Impression: Acute URI COPD (chronic obstructive pulmonary disease) Qualifiers: COPD type: unspecified COPD Qualified Code(s): J44.9 - Chronic obstructive pulmonary disease, unspecified Condition: Stable Disposition: HOME, SELF-CARE Additional Instructions: Maintain adequate fluid intake Take meds as directed tylenol/ibuprofen as needed over the counter cold medication as needed for symptoms Humidified air may help Wash your hands regularly Wear a mask when coughing F/u: with your PCM in 3-5 days for a recheck Return to the ED with any fever, worsening pain, chest pain, palpitations, syncope, worsening COLLIER, neck pain/stiffness, shortness of breath, wheezing, drooling, trouble swallowing/breathing, abdominal pain, n/v/d, rash, or worsening/concerning symptoms otherwise. Prescriptions: Prednisone [Deltasone 20 mg Tablet] 2 tab PO DAILY 2 Days #4 tablet Referrals: GILBERT,STORMY, WARM IN WORKER-C [Primary Care Provider] - 04/21/18
--- NOTE | 2018-04-19 08:46 | RADIOLOGY REPORT (SQ) ---
EXAM DESCRIPTION: CHEST 2 VIEWS COMPLETED DATE/TIME: 04/19/2018 8:36 am REASON FOR STUDY: sob COMPARISON: 03/13/2018 EXAM PARAMETERS: NUMBER OF VIEWS: two views TECHNIQUE: Digital Frontal and Lateral radiographic views of the chest acquired. RADIATION DOSE: NA LIMITATIONS: none FINDINGS: LUNGS AND PLEURA: Chronic interstitial changes. No evidence of pulmonary edema or pneumon ia. No pleural effusion. MEDIASTINUM AND HILAR STRUCTURES: No masses or contour abnormalities. HEART AND VASCULAR STRUCTURES: Heart normal size. No evidence for failure. BONES: No acute findings. HARDWARE: None in the chest. OTHER: No other significant finding. IMPRESSION: NO ACUTE RADIOGRAPHIC FINDING IN THE CHEST. TECHNICAL DOCUMENTATION: JOB ID: [id number] [employer]- All Rights Reserved Reading location - IP/workstation name: [email or web address]
[2018-04-19 09:02] LABS: ABSOLUTE BASOPHILS # (AUTO) 0.1 10^3/uL (0.0-0.2); ABSOLUTE EOSINOPHILS # (AUTO) 0.3 10^3/uL (0.0-0.6); ABSOLUTE LYMPHOCYTES (AUTO) 1.6 10^3/uL (0.5-4.7); ABSOLUTE MONOCYTES (AUTO) 0.8 10^3/uL (0.1-1.4); ABSOLUTE NEUT (AUTO) 6.2 10^3/uL (1.7-8.2); BASOPHILS % (AUTO) 0.7 % (0-2); EOSINOPHILS % (AUTO) 3.7 % (0-6); HEMATOCRIT 35.7 % (36.0-47.0); HEMOGLOBIN 12.1 g/dL (12.0-15.5); LYMPHOCYTES % (AUTO) 18.3 % (13-45); MEAN CORPUSCULAR HEMOGLOBIN 26.6 pg (27.0-33.4); MEAN CORPUSCULAR HGB CONC 33.9 g/dL (32.0-36.0); MEAN CORPUSCULAR VOLUME 79 fl (80-97); MONOCYTES % (AUTO) 8.6 % (3-13); PLATELET COUNT 321 10^3/uL (150-450); RED BLOOD COUNT 4.55 10^6/uL (3.72-5.28); RED CELL DISTRIBUTION WIDTH 14.3 % (11.5-14.0); SEGMENTED NEUTROPHILS % (AUTO) 68.7 % (42-78); TOTAL CELLS COUNTED % (AUTO) 100 %
[2018-04-19] MEDS: MAGNESIUM SULFATE/D5W 1 GM/100 ML RTUPB IV SCH ×2 (09:03→10:03)
[2018-04-19 09:25] LABS: ALANINE AMINOTRANSFERASE 17 U/L (9-52); ALBUMIN 3.7 g/dL (3.5-5.0); ALKALINE PHOSPHATASE 78 U/L (38-126); ANION GAP 9 (5-19); ASPARTATE AMINO TRANSFERASE 22 U/L (14-36); BILIRUBIN,DIRECT 0.4 mg/dL (0.0-0.4); BILIRUBIN,TOTAL 0.6 mg/dL (0.2-1.3); BLOOD UREA NITROGEN 12 mg/dL (7-20); CALCIUM 9.3 mg/dL (8.4-10.2); CARBON DIOXIDE 28 mmol/L (22-30); CHLORIDE 105 mmol/L (98-107); GLUCOSE 224 mg/dL (75-110); SODIUM 141.6 mmol/L (137-145); TOTAL PROTEIN 6.4 g/dL (6.3-8.2)
--- NOTE | 2018-04-19 10:05 | EKG REPORT ---
SEVERITY:- OTHERWISE NORMAL ECG - INCOMPLETE ANALYSIS DUE TO MISSING DATA IN PRECORDIAL LEAD(S) SINUS TACHYCARDIA : Confirmed by: Pennie Wilde MD 19-Apr-2018 10:04:30
--- NOTE | 2018-04-19 10:05 | EKG REPORT ---
SEVERITY:- OTHERWISE NORMAL ECG - SINUS TACHYCARDIA : Confirmed by: Pennie Wilde MD 19-Apr-2018 10:04:26
[2018-04-19 10:32] VITALS: BP 119/64
== END 2018-04-19 10:32 | disposition home or self-care (01) ==
LOC: ER 08:17
DX: J44.1 Chronic obstructive pulmonary disease with (acute) exacerbation (principal); J45.901 Unspecified asthma with (acute) exacerbation; J06.9 Acute upper respiratory infection, unspecified; R06.02 Shortness of breath; E11.9 Type 2 diabetes mellitus without complications; R09.81 Nasal congestion; R05 Cough; R09.82 Postnasal drip; I10 Essential (primary) hypertension; Z88.8 Allergy status to other drugs, medicaments and biological substances; Z87.891 Personal history of nicotine dependence; Z87.01 Personal history of pneumonia (recurrent)
CPT/HCPCS: 93005; 94640; 99285; 96361; 96374; 36415; 85025; 80053; 84484; 71046; 93010; J2930; J3475; J7030; J7620

== ENCOUNTER 2018-05-06 06:56 | Emergency (ER) | payer MEDICAID ==
[2018-05-06] MEDS ORDERED: METHYLPREDNISOLONE INJ 125 MG/2 ML SDV IV ONE (07:44)
[2018-05-06] MEDS ORDERED: IPRATROPIUM/ALBUTEROL 0.5-2.5 MG/3 ML AMPUL NEB ONE ×2 (07:44→12:17)
--- NOTE | 2018-05-06 07:48 | ER Document Report ---
ED Respiratory Problem - General Chief Complaint: Productive Cough Stated Complaint: COLD SYMPTOMS Time Seen by Provider: 05/06/18 07:24 Mode of Arrival: Ambulatory Information source: Patient Notes: Patient presents with a 2-week history of cough and wheezing. Patient does report hot and cold chills. Patient denies any vomiting or diarrhea. Patient denies any chest pain symptoms. Patient states she has been using her nebulizer machine without any improvement of her symptoms. We have asthma as well as COPD and is a former smoker. TRAVEL OUTSIDE OF THE [place] IN LAST 30 DAYS: No - HPI Patient complains to provider of: COPD, Cough, Short of breath Onset: Other - 2 weeks Duration: Worse/persistent Initiating Event: No: Out of meds Quality of pain: No pain Context: Hx asthma, Hx COPD Cough: Nonproductive At home treatment: Bronchodilators Associated symptoms: Cough, Short of breath, Wheezing. denies: Anxiety, Chest pain/discomfort, Earache, Heart racing Similar symptoms previously: Yes Recently seen / treated by doctor: No - Related Data Allergies/Adverse Reactions: benzonatate [From Tessalon Perljoe] Allergy (Verified 04/19/18 08:19) RCING HEARTBEART NSAIDS (Non-Steroidal Anti-Inflamma Allergy (Verified 04/19/18 08:19) RACING HEARTBEAT Past Medical History - General Information source: Patient - Social History Smoking Status: Current Every Day Smoker Frequency of alcohol use: None Drug Abuse: None Lives with: Family Family History: COPD, DM, Hypertension Patient has suicidal ideation: No Patient has homicidal ideation: No - Past Medical History Cardiac Medical History: Reports: Hx Hypertension Pulmonary Medical History: Reports: Hx Asthma, Hx Bronchitis, Hx COPD, Hx Pneumonia Denies: Hx Intubation Endocrine Medical History: Reports: Hx Diabetes Mellitus Type 2 Renal/ Medical History: Denies: Hx Peritoneal Dialysis GI Medical History: Denies: Hx Gastroesophageal Reflux Disease Musculoskeletal Medical History: Reports Hx Arthritis Psychiatric Medical History: Denies: Hx Depression Surgical Hx: Negative - Immunizations Hx Diphtheria, Pertussis, Tetanus Vaccination: Yes Review of Systems - Review of Systems Constitutional: No symptoms reported. denies: Fever, Recent illness EENT: No symptoms reported Cardiovascular: No symptoms reported. denies: Chest pain Respiratory: Cough, Short of breath, Wheezing Gastrointestinal: No symptoms reported. denies: Abdominal pain, Diarrhea, Nausea Genitourinary: No symptoms reported Female Genitourinary: No symptoms reported Musculoskeletal: No symptoms reported Skin: No symptoms reported Hematologic/Lymphatic: No symptoms reported Neurological/Psychological: No symptoms reported Physical Exam - Vital signs Vitals: Temp Pulse Resp BP Pulse Ox 97.7 F 104 H 20 130/62 H 91 L 05/06/18 07:03 05/06/18 07:03 05/06/18 07:03 05/06/18 07:03 05/06/18 07:03 - General General appearance: Appears well, Alert In distress: None - HEENT Head: Normocephalic, Atraumatic Eyes: Normal Conjunctiva: Normal Nasal: Clear rhinorrhea Mouth/Lips: Normal Pharynx: Normal. No: Erythema, Exudate Neck: Normal, Supple. No: Lymphadenopathy - Respiratory Respiratory status: Tachypnea Chest status: Nontender Breath sounds: Nonproductive cough, Wheezing Chest palpation: Normal - Cardiovascular Rhythm: Tachycardia Heart sounds: S1 appreciated, S2 appreciated Murmur: No - Back Back: Normal, Nontender - Extremities General upper extremity: Normal inspection, Normal ROM General lower extremity: Normal inspection, Normal ROM - Neurological Neuro grossly intact: Yes Cognition: Normal Orientation: AAOx4 [place] Coma Scale Eye Opening: Spontaneous [place] Coma Scale Verbal: Oriented [place] Coma Scale Motor: Obeys Commands [place] Coma Scale Total: 15 - Psychological Associated symptoms: Normal affect, Normal mood - Skin Skin Temperature: Warm Skin Moisture: Dry Skin Color: Normal Course - Re-evaluation Re-evalutation: 05/06/18 10:00 Patient continues with scattered wheezing bilaterally. Patient with good air movement. 05/06/18 10:[address] tested by RN, patient maintain oxygen saturation at 88% with heart rate of 110. 05/06/18 11:[address] Lawler regarding patient presentation and diagnostic evaluation. Agrees with plan to give IV magnesium as well as additional nebulizer treatments. 05/06/18 13:40 Patient ambulated in the hallway, oxygen saturation maintained at 94% heart rate was 106 with respiratory rate of 23. Patient with good air movement bilaterally. Presents with symptoms consistent with asthma exacerbation in the setting of COPD. No concern for ACS, AR or PE at this time. Patient denies any pain symptoms. Patient is agreeable with discharge plan of care at this time. - Vital Signs Vital signs: Temp Pulse Resp BP Pulse Ox 97.6 F 99 23 H 121/67 94 05/06/18 13:52 05/06/18 13:52 05/06/18 13:52 05/06/18 13:52 05/06/18 13:52 - Laboratory Result Diagrams: 05/06/18 08:15 05/06/18 08:15 Laboratory results interpreted by me: 05/06/18 05/06/18 05/06/18 08:15 08:15 09:50 Hgb 11.9 L Hct 35.7 L MCV 79 L MCH 26.2 L RDW 14.6 H Eosinophils % 16.3 H Absolute Eosinophils 1.6 H Sodium 145.9 H Chloride 108 H Glucose 114 H Urine Ascorbic Acid 40 H Labs- Entire Visit 05/06/18 05/06/18 05/06/18 08:15 08:15 08:15 WBC 9.6 RBC 4.54 Hgb 11.9 L Hct 35.7 L MCV 79 L MCH 26.2 L MCHC 33.3 RDW 14.6 H Plt Count 385 Seg Neutrophils % 53.9 Lymphocytes % 20.6 Monocytes % 7.9 Eosinophils % 16.3 H Basophils % 1.3 Absolute Neutrophils 5.2 Absolute Lymphocytes 2.0 Absolute Monocytes 0.8 Absolute Eosinophils 1.6 H Absolute Basophils 0.1 Sodium 145.9 H Potassium 3.7 Chloride 108 H Carbon Dioxide 29 Anion Gap 9 BUN 14 Creatinine 0.65 Est GFR ( Amer) > 60 Est GFR (Non-Af Amer) > 60 Glucose 114 H Calcium 9.7 Troponin I < 0.012 Urine Color Urine Appearance Urine pH Ur Specific [place] Urine Protein Urine Glucose (UA) Urine Ketones Urine Blood Urine Nitrite Urine Bilirubin Urine Urobilinogen Ur Leukocyte Esterase Urine WBC (Auto) Urine RBC (Auto) U Hyaline Cast (Auto) Squamous Epi Cells Auto Urine Mucus (Auto) Urine Ascorbic Acid 05/06/18 09:50 WBC RBC Hgb Hct MCV MCH MCHC RDW Plt Count Seg Neutrophils % Lymphocytes % Monocytes % Eosinophils % Basophils % Absolute Neutrophils Absolute Lymphocytes Absolute Monocytes Absolute Eosinophils Absolute Basophils Sodium Potassium Chloride Carbon Dioxide Anion Gap BUN Creatinine Est GFR ( Amer) Est GFR (Non-Af Amer) Glucose Calcium Troponin I Urine Color YELLOW Urine Appearance SLIGHTLY-CLOUDY Urine pH 5.0 Ur Specific [place] 1.016 Urine Protein NEGATIVE Urine Glucose (UA) NEGATIVE Urine Ketones NEGATIVE Urine Blood NEGATIVE Urine Nitrite NEGATIVE Urine Bilirubin NEGATIVE Urine Urobilinogen NEGATIVE Ur Leukocyte Esterase NEGATIVE Urine WBC (Auto) 0 Urine RBC (Auto) 0 U Hyaline Cast (Auto) 1 Squamous Epi Cells Auto 1 Urine Mucus (Auto) FEW Urine Ascorbic Acid 40 H - Diagnostic Test Radiology reviewed: Reports reviewed Discharge - Discharge Clinical Impression: COPD with exacerbation Asthma Qualifiers: Asthma severity: unspecified severity Asthma persistence: unspecified Asthma complication type: unspecified Qualified Code(s): J45.909 - Unspecified asthma, uncomplicated Condition: Stable Disposition: HOME, SELF-CARE Instructions: Asthma ([facility]), Chronic Obstructive Lung Disease ([facility]), Inhaled Bronchodilators ([facility]), Steroid Medication Additional Instructions: Return immediately for any new or worsening symptoms Followup with your primary care provider, call tomorrow to make a followup appointment Prescriptions: Albuterol Sulfate [Ventolin 0.083% Neb 2.5 mg/3 ml Ampul] 1 vial NEB Q4 PRN #20 vial PRN Reason: Prednisone [Deltasone 20 mg Tablet] 2 tab PO DAILY 5 Days tablet Referrals: BONIFACIO MELENDEZ FNP-C [Primary Care Provider] - Follow up tomorrow
--- NOTE | 2018-05-06 08:29 | RADIOLOGY REPORT (SQ) ---
EXAM DESCRIPTION: CHEST 2 VIEWS COMPLETED DATE/TIME: 05/06/2018 8:13 am REASON FOR STUDY: cough COMPARISON: Two-view chest 04/19/2018, 03/13/2018 EXAM PARAMETERS: NUMBER OF VIEWS: two views TECHNIQUE: Digital Frontal and Lateral radiographic views of the chest acquired. RADIATION DOSE: NA LIMITATIONS: none FINDINGS: LUNGS AND PLEURA: No opacities, masses or pneumothorax. No pleural effusion. MEDIASTINUM AND HILAR STRUCTURES: No masses or contour abnormalities. HEART AND VASCULAR STRUCTURES: Heart normal size. No evidence for failure. BONES: No acute findings. HARDWARE: None in the chest. OTHER: No other significant finding. IMPRESSION: NO ACUTE RADIOGRAPHIC FINDING IN THE CHEST. TECHNICAL DOCUMENTATION: JOB ID: [id number] [employer]- All Rights Reserved Reading location - IP/workstation name: [email or web address]
[2018-05-06 08:30] LABS: ABSOLUTE BASOPHILS # (AUTO) 0.1 10^3/uL (0.0-0.2); ABSOLUTE EOSINOPHILS # (AUTO) 1.6 10^3/uL (0.0-0.6); ABSOLUTE MONOCYTES (AUTO) 0.8 10^3/uL (0.1-1.4); ABSOLUTE NEUT (AUTO) 5.2 10^3/uL (1.7-8.2); BASOPHILS % (AUTO) 1.3 % (0-2); EOSINOPHILS % (AUTO) 16.3 % (0-6); HEMATOCRIT 35.7 % (36.0-47.0); HEMOGLOBIN 11.9 g/dL (12.0-15.5); LYMPHOCYTES % (AUTO) 20.6 % (13-45); MEAN CORPUSCULAR HEMOGLOBIN 26.2 pg (27.0-33.4); MEAN CORPUSCULAR HGB CONC 33.3 g/dL (32.0-36.0); MEAN CORPUSCULAR VOLUME 79 fl (80-97); MONOCYTES % (AUTO) 7.9 % (3-13); PLATELET COUNT 385 10^3/uL (150-450); RED BLOOD COUNT 4.54 10^6/uL (3.72-5.28); RED CELL DISTRIBUTION WIDTH 14.6 % (11.5-14.0); SEGMENTED NEUTROPHILS % (AUTO) 53.9 % (42-78); TOTAL CELLS COUNTED % (AUTO) 100 %; WHITE BLOOD COUNT 9.6 10^3/uL (4.0-10.5)
[2018-05-06 08:59] LABS: ANION GAP 9 (5-19); BLOOD UREA NITROGEN 14 mg/dL (7-20); CALCIUM 9.7 mg/dL (8.4-10.2); CARBON DIOXIDE 29 mmol/L (22-30); CHLORIDE 108 mmol/L (98-107); GLUCOSE 114 mg/dL (75-110); POTASSIUM 3.7 mmol/L (3.6-5.0); SODIUM 145.9 mmol/L (137-145)
[2018-05-06] MEDS ORDERED: ALBUTEROL SULFATE 0.083% NEB 2.5 MG/3 ML AMPUL NEB ONE ×3 (09:03→11:00)
--- NOTE | 2018-05-06 09:13 | EKG REPORT ---
SEVERITY:- ABNORMAL ECG - SINUS TACHYCARDIA CONSIDER LEFT VENTRICULAR HYPERTROPHY : Confirmed by: Tianna Xavier 06-May-2018 09:12:34
[2018-05-06 10:09] LABS: APPEARANCE,URINE SLIGHTLY-CLOUDY; BILIRUBIN,URINE NEGATIVE (NEGATIVE); COLOR,URINE YELLOW; GLUCOSE, URINE NEGATIVE (NEGATIVE); KETONES,URINE NEGATIVE (NEGATIVE); LEUKOCYTE ESTERASE,URINE NEGATIVE (NEGATIVE); NITRITE,URINE NEGATIVE (NEGATIVE); PROTEIN,URINE NEGATIVE (NEGATIVE); URINE SPECIFIC GRAVITY 1.016; UROBILINOGEN,URINE NEGATIVE mg/dL (<2.0)
[2018-05-06] MEDS ORDERED: MAGNESIUM SULFATE/D5W 1 GM/100 ML RTUPB IV ONE (11:00)
[2018-05-06 13:52] VITALS: BP 121/67
== END 2018-05-06 13:52 | disposition home or self-care (01) ==
LOC: ER 06:56
DX: J44.1 Chronic obstructive pulmonary disease with (acute) exacerbation (principal); R40.2412 Glasgow coma scale score 13-15, at arrival to emergency department; R05 Cough; I10 Essential (primary) hypertension; E11.9 Type 2 diabetes mellitus without complications; M19.90 Unspecified osteoarthritis, unspecified site; Z88.8 Allergy status to other drugs, medicaments and biological substances; F17.200 Nicotine dependence, unspecified, uncomplicated
CPT/HCPCS: 93005; 94640 ×2; 99284; 96375; 96365; 36415; 85025; 80048; 81001; 84484; 71046; 93010; J2930; J3475; J7620

== ENCOUNTER 2018-05-26 19:22 | Inpatient (IN) | payer SELFPAY ==
[2018-05-26] MEDS ORDERED: IPRATROPIUM/ALBUTEROL 0.5-2.5 MG/3 ML AMPUL NEB ONE ×3 (19:32→19:34)
[2018-05-26] MEDS ORDERED: METHYLPREDNISOLONE INJ 125 MG/2 ML SDV IV ONE (19:33)
--- NOTE | 2018-05-26 19:40 | ER Document Report ---
ED Respiratory Problem - General Chief Complaint: Shortness Of Breath Stated Complaint: SHORTNESS OF BREATH Time Seen by Provider: 05/26/18 19:32 Notes: Patient is a 57 year old female with a history of both asthma and COPD that comes to the emergency department for chief complaint of severely increased difficulty breathing and cough with wheezing since yesterday. Initial oxygen saturation at bedside is 88% on room air. She has tried her home nebulizer 4 times a day without noted improvement. She denies fever chills, nausea vomiting , chest pain. Patient is not on home oxygen. Past medical history includes type 2 diabetes and hypertension, she denies smoking. She reports multiple admissions to the hospital for COPD/asthma exacerbation denies ever being intubated. TRAVEL OUTSIDE OF THE [place] IN LAST 30 DAYS: No - Related Data Allergies/Adverse Reactions: benzonatate [From [email or web address]] Allergy (Verified 05/26/18 19:38) RCING HEARTBEART NSAIDS (Non-Steroidal Anti-Inflamma Allergy (Verified 05/26/18 19:38) RACING HEARTBEAT Past Medical History - General Information source: Patient - Social History Smoking Status: Never Smoker Frequency of alcohol use: None Drug Abuse: None Lives with: Family Family History: COPD, DM, Hypertension - Past Medical History Cardiac Medical History: Reports: Hx Hypertension Pulmonary Medical History: Reports: Hx Asthma, Hx Bronchitis, Hx COPD, Hx Pneumonia Denies: Hx Intubation Endocrine Medical History: Reports: Hx Diabetes Mellitus Type 2 Renal/ Medical History: Denies: Hx Peritoneal Dialysis GI Medical History: Denies: Hx Gastroesophageal Reflux Disease Musculoskeletal Medical History: Reports Hx Arthritis Psychiatric Medical History: Denies: Hx Depression - Immunizations Hx Diphtheria, Pertussis, Tetanus Vaccination: Yes Review of Systems - Review of Systems Constitutional: No symptoms reported EENT: No symptoms reported Cardiovascular: No symptoms reported Respiratory: See HPI Gastrointestinal: No symptoms reported Genitourinary: No symptoms reported Female Genitourinary: No symptoms reported Musculoskeletal: No symptoms reported Skin: No symptoms reported Hematologic/Lymphatic: No symptoms reported Neurological/Psychological: No symptoms reported Physical Exam - Vital signs Vitals: Resp Pulse Ox 17 94 05/26/18 19:45 05/26/18 19:45 - Notes Notes: GENERAL: Moderate distress, labored breathing HEAD: Normocephalic, atraumatic. EYES: Pupils equal, round, and reactive to light. Extraocular movements intact. ENT: Oral mucosa moist, tongue midline. Oropharynx unremarkable. Airway patent. Nares patent, no nasal septal hematoma, TM's intact. NECK: Full range of motion. Supple. Trachea midline. LUNGS: Moderate respiratory distress with labored breathing and tachypnea, decreased breath sounds bilaterally, expiratory wheezes noted, no rales or rhonchi. HEART: Borderline tachycardia, normal rhythm. No murmur ABDOMEN: Soft, non-tender. Non-distended. Bowel sounds present in all 4 quadrants. GENITOURINARY: Deferred EXTREMITIES: Moves all 4 extremities spontaneously. No edema, normal radial and dorsalis pedis pulses bilaterally. No cyanosis. BACK: no cervical, thoracic, lumbar midline tenderness. No saddle anesthesia, normal distal neurovascular exam. NEUROLOGICAL: Alert and oriented x3. Normal speech. [cranial nerves II through XII grossly intact]. PSYCH: Anxious SKIN: Warm, dry, normal turgor. No rashes or lesions noted. Course - Re-evaluation Re-evalutation: On initial examination patient is in moderate respiratory distress with tachypnea, tears rolling down her face, obvious labored breathing, decreased breath sounds, expiratory wheezes, hypoxia. Placing on oxygen, initiating duo nebs, magnesium, Solu-Medrol. 05/26/18 20:01 Patient reevaluated at bedside, minimal improvement with duo nebs and magnesium , she is in moderate respiratory distress, placing on BiPAP. She can still speak several words but she is having trouble finishing sentences. Oxygen saturation averaging low 90s on 3 L nasal cannula. Issues we will continue to closely monitor. After she was placed on BiPAP respiratory distress resolved, she still has some scant expiratory wheezes and decreased breath sounds. Venous blood gas is unremarkable. CBC shows no leukocytosis, shows elevation of eosinophils. Chemistry unremarkable, troponin is not elevated. Chest x-ray unremarkable. Will discuss with hospitalist for admission for respiratory distress, asthma/ COPD exacerbation. Patient and significant other state understanding and agreement. Discussed with Dr. Elizabeth, hospitalist, patient will be admitted to [facility] for admission. - Vital Signs Vital signs: Temp Pulse Resp BP Pulse Ox 97.3 F 89 16 110/70 93 05/27/18 00:54 05/27/18 02:00 05/27/18 00:54 05/27/18 00:54 05/27/18 00:54 - Laboratory Result Diagrams: 05/26/18 19:45 05/26/18 19:45 Laboratory results interpreted by me: 05/26/18 05/26/18 19:45 19:45 MCV 78 L MCH 26.2 L Eosinophils % 12.7 H Absolute Eosinophils 1.2 H Carbon Dioxide 32 H Glucose 128 H Critical Care Note - Critical Care Note Total time excluding time spent on procedures (mins): 35 - Respiratory distress , hypoxia, COPD exacerbation Comments: Please allow 35 minutes critical care time for evaluation and management of patient with respiratory distress, COPD exacerbation hypoxia. Interventions including duo nebs, magnesium, Solu-Medrol, oxygen, BiPAP therapy, multiple re- evaluations. Time spent in interpretation of data, interpretation of old records , discussion with family member. Consultation and admission to the hospital. Discharge - Discharge Clinical Impression: COPD exacerbation, Respiratory distress, Hypoxia Exacerbation of asthma Qualifiers: Asthma severity: moderate Asthma persistence: unspecified Qualified Code(s): J45.901 - Unspecified asthma with (acute) exacerbation Condition: Stable Disposition: ADMITTED INPATIENT Admitting Provider: Hospitalist Unit Admitted: [facility]
[2018-05-26] MEDS: MAGNESIUM SULFATE/D5W 1 GM/100 ML RTUPB IV SCH ×2 (19:49→20:03)
[2018-05-26 20:00] LABS: ABSOLUTE BASOPHILS # (AUTO) 0.1 10^3/uL (0.0-0.2); ABSOLUTE EOSINOPHILS # (AUTO) 1.2 10^3/uL (0.0-0.6); ABSOLUTE LYMPHOCYTES (AUTO) 2.3 10^3/uL (0.5-4.7); ABSOLUTE MONOCYTES (AUTO) 0.8 10^3/uL (0.1-1.4); ABSOLUTE NEUT (AUTO) 4.7 10^3/uL (1.7-8.2); BASOPHILS % (AUTO) 1.2 % (0-2); EOSINOPHILS % (AUTO) 12.7 % (0-6); HEMOGLOBIN 12.1 g/dL (12.0-15.5); LYMPHOCYTES % (AUTO) 24.8 % (13-45); MEAN CORPUSCULAR HEMOGLOBIN 26.2 pg (27.0-33.4); MEAN CORPUSCULAR HGB CONC 33.5 g/dL (32.0-36.0); MEAN CORPUSCULAR VOLUME 78 fl (80-97); MONOCYTES % (AUTO) 9.2 % (3-13); PLATELET COUNT 410 10^3/uL (150-450); SEGMENTED NEUTROPHILS % (AUTO) 52.1 % (42-78); TOTAL CELLS COUNTED % (AUTO) 100 %; WHITE BLOOD COUNT 9.1 10^3/uL (4.0-10.5)
[2018-05-26 20:04] LABS: VENOUS BLOOD PH 7.42 (7.30-7.42)
[2018-05-26 20:05] LABS: VENOUS BLOOD BASE EXCESS 2.9 mmol/L; VENOUS BLOOD HCO3 27.8 mmol/L (20-32)
[2018-05-26 20:37] LABS: ALANINE AMINOTRANSFERASE 13 U/L (9-52); ALKALINE PHOSPHATASE 97 U/L (38-126); ANION GAP 6 (5-19); ASPARTATE AMINO TRANSFERASE 30 U/L (14-36); BILIRUBIN,DIRECT 0.4 mg/dL (0.0-0.4); BILIRUBIN,TOTAL 0.5 mg/dL (0.2-1.3); BLOOD UREA NITROGEN 14 mg/dL (7-20); CALCIUM 9.6 mg/dL (8.4-10.2); CARBON DIOXIDE 32 mmol/L (22-30); CHLORIDE 106 mmol/L (98-107); GLUCOSE 128 mg/dL (75-110); POTASSIUM 3.6 mmol/L (3.6-5.0); SODIUM 144.2 mmol/L (137-145); TOTAL PROTEIN 7.4 g/dL (6.3-8.2)
--- NOTE | 2018-05-26 20:47 | RADIOLOGY REPORT (SQ) ---
EXAM DESCRIPTION: CHEST SINGLE VIEW COMPLETED DATE/TIME: 05/26/2018 8:23 pm REASON FOR STUDY: shortness of breath COMPARISON: 05/06/2018 EXAM PARAMETERS: NUMBER OF VIEWS: One view. TECHNIQUE: Single frontal radiographic view of the chest acquired. RADIATION DOSE: NA LIMITATIONS: None. FINDINGS: LUNGS AND PLEURA: No opacities, masses or pneumothorax. No pleural effusion. MEDIASTINUM AND HILAR STRUCTURES: No masses. Contour normal. HEART AND VASCULAR STRUCTURES: Heart normal in size. Normal vasculature. BONES: No acute findings. HARDWARE: None in the chest. OTHER: No other significant finding. IMPRESSION: NO ACUTE RADIOGRAPHIC FINDING IN THE CHEST. TECHNICAL DOCUMENTATION: JOB ID: [id number] [employer]- All Rights Reserved Reading location - IP/workstation name: [email or web address]
[2018-05-26] MEDS ORDERED: MAG HYDROX/AL HYDROX/SIMETH SUSP 30 ML UDCUP PO PRN (21:44)
[2018-05-26] MEDS ORDERED: DEXTROSE 50%-WATER 25 GM/50 ML DISP.SYRIN IV PRN ×4 (21:44→21:51)
[2018-05-26] MEDS ORDERED: ACETAMINOPHEN 325 MG TABLET PO PRN (21:44)
[2018-05-26] MEDS ORDERED: GLUCAGON,HUMAN RECOMB 1 MG INJ SUBCUT PRN (21:44)
[2018-05-26] MEDS ORDERED: LEVALBUTEROL HCL NEB 0.63 MG/3 ML AMPUL NEB PRN (21:44)
[2018-05-26] MEDS ORDERED: ONDANSETRON HCL INJ/PF 4 MG/2 ML SDV IV PRN (21:44)
[2018-05-26] MEDS ORDERED: IPRATROPIUM/ALBUTEROL 0.5-2.5 MG/3 ML AMPUL NEB PRN (21:44)
[2018-05-26] MEDS ORDERED: PROMETHAZINE HCL 25 MG TABLET PO PRN (21:44)
[2018-05-26] MEDS ORDERED: DEXTROSE 40% GEL 15 GM TUBE PO PRN ×4 (21:44→21:51)
[2018-05-26] MEDS ORDERED: GLUCAGON,HUMAN RECOMB 1 MG INJ IM PRN (21:51)
--- NOTE | 2018-05-26 22:51 | PDOC H&P ---
History of Present Illness Admission Date/PCP: 05/26/18 21:18 JENNIFER MEYER Patient complains of: Shortness of breath History of Present Illness: ADDIE STEWART is a 57 year old female with medical history remarkable for COPD and asthma who has been feeling sick for the last 2 days with progressive shortness of breath, cough with yellowish and clear sputum associated with wheezing. Denies sore throat, has runny nose all the time secondary to a polyp , denies fever, chills, nausea, vomiting, abdominal pain, diarrhea, dizziness. Patient does not wear oxygen at home. On room air her oxygen saturation was initially 88% at the bedside, she was on clear respiratory distress, initially for nebulizer treatments given without improvement, was saturating in the upper 80's on 2 L oxygen via nasal cannula. Decided to place her on BiPAP, currently saturating 97%. Patient is non-smoker. Past Medical History Cardiac Medical History: Reports: Hypertension Pulmonary Medical History: Reports: Asthma, Bronchitis, Chronic Obstructive Pulmonary Disease (COPD), Pneumonia Endocrine Medical History: Reports: Diabetes Mellitus Type 2 Musculoskeltal Medical History: Reports: Arthritis Past Surgical History Past Surgical History: Reports: None Social History Lives with: Family Smoking Status: Never Smoker Frequency of Alcohol Use: None Hx Recreational Drug Use: No Drugs: None Hx Prescription Drug Abuse: No Past Social History Note: at the bedside Family History Family History: COPD, DM, Hypertension Parental Family History Reviewed: Yes - As above Children Family History Reviewed: NA Sibling(s) Family History Reviewed.: NA Medication/Allergy Home Medications: Albuterol Sulfate [Proair HFA] 2 puff IH Q4HP PRN 01/17/18 Budesonide/Formoterol Fumarate [Symbicort HFA 160-4.5 mcg Inhaler 6 gm] 2 puff IH Q12 01/17/18 Carvedilol [Coreg 3.125 mg Tablet] 3.125 mg PO Q12 01/17/18 Diltiazem HCl [Cardizem LA] 240 mg PO Q12 01/17/18 Ipratropium/Albuterol Sulfate [Duoneb 3 ml Ampul] 3 ml NEB RTQID 01/17/18 Metformin HCl [Glucophage 500 mg Tablet] 500 mg PO BID 01/17/18 Montelukast Sodium [Singulair 10 mg Tablet] 10 mg PO QPM 01/17/18 Albuterol Sulfate [Ventolin 0.083% Neb 2.5 mg/3 ml Ampul] 1 vial NEB Q4 PRN #20 vial 05/06/18 Allergies/Adverse Reactions: benzonatate [From Wes Blanco] Allergy (Verified 05/26/18 19:38) RCING HEARTBEART NSAIDS (Non-Steroidal Anti-Inflamma Allergy (Verified 05/26/18 19:38) RACING HEARTBEAT Review of Systems Review of Systems: As outlined in the HPI, all others negative Physical Exam Vital Signs: Temp Pulse Resp BP Pulse Ox 19 115/66 96 05/26/18 21:34 05/26/18 21:01 05/26/18 21:34 Additional comments: General appearance: Well-developed, well-nourished, alert and cooperative, and appears to be in no acute distress. Wearing BiPAP. Head: Normocephalic Eyes: PEERL, EOMI, vision is grossly intact. Ears: External auditory canal and tympanic membranes clear, hearing grossly intact. Nose: No nasal discharge. Throat: Oral cavity and pharynx normal. No inflammation, swelling, exudate or lesions. Neck: Neck supple, nontender without lymphadenopathy, masses or thyromegaly. Cardiac: Normal S1 and S2. No S3, S4 or murmurs. Rhythm is regular. There is no peripheral edema, cyanosis or pallor. Extremities are warm and well perfused. Capillary refill is less than 2 seconds. No carotid bruits. Lungs: Bilateral decreased air entry with expiratory wheezing, bilateral crackles more into third inferior bilaterally, moderate diffuse rhonchi. Not using accessory muscles. Abdomen: Positive bowel sounds. Soft. Nondistended, nontender. No guarding or rebound. No masses. No hepatosplenomegaly Extremities: No significant deformity or joint abnormality. No edema. Peripheral pulses intact. No varicosities. Neurological: Cranial nerves II through XII grossly intact. Strength and sensation symmetric and intact throughout. Reflexes 2+ throughout. Skin: Skin normal color, texture and turgor with no lesions or eruptions, warm and dry. Psychiatric: The mental examination revealed the patient was oriented to person , place, and time. The patient was able to demonstrate good judgment on recent , without hallucinations, abnormal affect or abnormal behaviors. Results Laboratory Results: 05/26/18 05/26/18 05/26/18 19:45 19:45 19:45 WBC 9.1 RBC 4.60 Hgb 12.1 Hct 36.0 MCV 78 L MCH 26.2 L MCHC 33.5 RDW 14.0 Plt Count 410 Seg Neutrophils % 52.1 Lymphocytes % 24.8 Monocytes % 9.2 Eosinophils % 12.7 H Basophils % 1.2 Absolute Neutrophils 4.7 Absolute Lymphocytes 2.3 Absolute Monocytes 0.8 Absolute Eosinophils 1.2 H Absolute Basophils 0.1 VBG pH VBG pCO2 VBG HCO3 VBG Base Excess Sodium 144.2 Potassium 3.6 Chloride 106 Carbon Dioxide 32 H Anion Gap 6 BUN 14 Creatinine 0.85 Est GFR ( Amer) > 60 Est GFR (Non-Af Amer) > 60 Glucose 128 H Calcium 9.6 Total Bilirubin 0.5 Direct Bilirubin 0.4 AST 30 ALT 13 Alkaline Phosphatase 97 Troponin I < 0.012 Total Protein 7.4 Albumin 4.0 05/26/18 19:45 WBC RBC Hgb Hct MCV MCH MCHC RDW Plt Count Seg Neutrophils % Lymphocytes % Monocytes % Eosinophils % Basophils % Absolute Neutrophils Absolute Lymphocytes Absolute Monocytes Absolute Eosinophils Absolute Basophils VBG pH 7.42 VBG pCO2 44.0 VBG HCO3 27.8 VBG Base Excess 2.9 Sodium Potassium Chloride Carbon Dioxide Anion Gap BUN Creatinine Est GFR ( Amer) Est GFR (Non-Af Amer) Glucose Calcium Total Bilirubin Direct Bilirubin AST ALT Alkaline Phosphatase Troponin I Total Protein Albumin Impressions: Chest X-Ray 05/26/18 19:33 IMPRESSION: NO ACUTE RADIOGRAPHIC FINDING IN THE CHEST. Assessment & Plan - Diagnosis (1) Acute respiratory failure with hypoxemia Is this a current diagnosis for this admission?: Yes Plan: Initial oxygen saturation was in the low 80s partial improvement on 2 L oxygen via nasal cannula to the upper 80s, on BiPAP saturating 97%, not in current respiratory distress and not using accessory muscles. We will give the patient on BiPAP overnight. Influenza swab requested. (2) COPD exacerbation Is this a current diagnosis for this admission?: Yes Plan: Continue BiPAP, IV azithromycin, Solu-Medrol 60 mg every 8 hours. Incentive spirometry. Sputum culture. Close respiratory monitoring. Telemetry monitoring. Probably has also asthma exacerbation contributing to her disease. (3) Hypertension Qualifiers: Hypertension type: essential hypertension Qualified Code(s): I10 - Essential (primary) hypertension Is this a current diagnosis for this admission?: Yes Plan: Resume home antihypertensive medications. Carvedilol and Cardizem. (4) Diabetes mellitus type 2 in obese Is this a current diagnosis for this admission?: Yes Plan: Continue with metformin. Accu-Cheks q. before meals and at bedtime, insulin lispro sliding scale and hypoglycemia protocol. - Time Time Spent: 50 to 70 Minutes - Inpatient Certification Based on my medical assessment, after consideration of the patient's comorbidities, presenting symptoms, or acuity I expect that the services needed warrant INPATIENT care.: Yes I certify that my determination is in accordance with my understanding of Medicare's requirements for reasonable and necessary INPATIENT services [42 CFR 412.3e].: Yes Medical Necessity: Risk of Complication if Not Cared For in Hospital - Acute respiratory failure with needs of intubation
[2018-05-26] MEDS: AZITHROMYCIN 500 MG in DEXTROSE 5%-WATER 250 ML IV SCH (23:39)
[2018-05-27] MEDS: INSULIN LISPRO 100 UNIT/ML 3 ML VIAL SUBCUT PRN ×2 (01:41→23:40)
[2018-05-27] MEDS: METHYLPREDNISOLONE INJ 125 MG/2 ML SDV IV SCH ×2 (02:46→09:15)
[2018-05-27] MEDS ORDERED: ALBUTEROL SULFATE HFA (90 MCG/PUFF) 8 GM MDI (1 MDI/ER DISP) IH PRN (03:03)
[2018-05-27 05:32] LABS: ABSOLUTE LYMPHOCYTES (AUTO) 0.8 10^3/uL (0.5-4.7); ABSOLUTE MONOCYTES (AUTO) 0.1 10^3/uL (0.1-1.4); ABSOLUTE NEUT (AUTO) 6.7 10^3/uL (1.7-8.2); BASOPHILS % (AUTO) 0.2 % (0-2); EOSINOPHILS % (AUTO) 0.1 % (0-6); HEMATOCRIT 35.4 % (36.0-47.0); LYMPHOCYTES % (AUTO) 10.5 % (13-45); MEAN CORPUSCULAR HEMOGLOBIN 26.4 pg (27.0-33.4); MEAN CORPUSCULAR VOLUME 78 fl (80-97); MONOCYTES % (AUTO) 1.1 % (3-13); PLATELET COUNT 399 10^3/uL (150-450); RED BLOOD COUNT 4.56 10^6/uL (3.72-5.28); SEGMENTED NEUTROPHILS % (AUTO) 88.1 % (42-78); TOTAL CELLS COUNTED % (AUTO) 100 %; WHITE BLOOD COUNT 7.6 10^3/uL (4.0-10.5)
[2018-05-27 05:46] LABS: ANION GAP 13 (5-19); BLOOD UREA NITROGEN 14 mg/dL (7-20); CALCIUM 9.8 mg/dL (8.4-10.2); CARBON DIOXIDE 26 mmol/L (22-30); CHLORIDE 105 mmol/L (98-107); GLUCOSE 181 mg/dL (75-110); PHOSPHORUS 4.9 mg/dL (2.5-4.5); SODIUM 144.4 mmol/L (137-145)
[2018-05-27 05:56] LABS: POTASSIUM 4.6 mmol/L (3.6-5.0)
[2018-05-27 06:18] LABS: A TYPE INFLUENZA AG NEGATIVE (NEGATIVE); B INFLUENZA AG NEGATIVE (NEGATIVE)
[2018-05-27 06:42] LABS: ARTERIAL BLOOD BASE EXCESS 1.1 mmol/L; ARTERIAL BLOOD FIO2 30%; ARTERIAL BLOOD H2CO3 1.49 mmol/L (1.05-1.35); ARTERIAL BLOOD HCO3 27.2 mmol/L (20-24); ARTERIAL BLOOD O2 SATURATION 95.6 % (94-98); ARTERIAL BLOOD PCO2 49.5 mmHg (35-45); ARTERIAL BLOOD PH 7.36 (7.35-7.45); ARTERIAL BLOOD PO2 82.3 mmHg (80-100); ARTERIAL BLOOD TOTAL CO2 28.7 mmol/L (21-25)
[2018-05-27] MEDS ORDERED: ALBUTEROL SULFATE HFA (90 MCG/PUFF) 200 PUFF/8.5 GM MDI IH PRN (06:58)
[2018-05-27] MEDS ORDERED: ONDANSETRON HCL INJ/PF 4 MG/2 ML SDV IV PRN (07:30)
[2018-05-27] MEDS: ENOXAPARIN SODIUM INJ 40 MG/0.4 ML DISP.SYRIN SUBCUT SCH (09:13)
[2018-05-27] MEDS: CARVEDILOL 3.125 MG TABLET PO SCH ×2 (09:15→22:25)
[2018-05-27] MEDS: METFORMIN HCL 500 MG TABLET PO SCH ×2 (09:15→17:09)
[2018-05-27] MEDS: DILTIAZEM HCL 240 MG CAPSULE.CR PO SCH ×2 (09:15→22:25)
[2018-05-27] MEDS ORDERED: BUDESONIDE/FORMOTEROL 160-4.5 MCG 60 PUFF/6 GM MDI IH SCH (10:00)
[2018-05-27] MEDS: LEVALBUTEROL HCL NEB 1.25 MG/3 ML AMPUL NEB SCH (16:33)
[2018-05-27] MEDS: IPRATROPIUM BROMIDE 0.02% NEB 0.5 MG/2.5 ML AMPUL NEB SCH (16:33)
[2018-05-27] MEDS: METHYLPREDNISOLONE INJ 40 MG/1 ML SDV IV SCH ×2 (17:09→23:41)
--- NOTE | 2018-05-27 17:46 | PDOC PROGRESS REPORT ---
Subjective Progress Note for:: 05/27/18 Subjective:: ADDIE STEWART is a 57 year old female who presented with a 2-day history of progressively worsening dyspnea with a productive cough and progressively worsening wheezing. She acknowledges a history of COPD and asthma and today her dyspnea became so severe that she decided to call for the ambulance to bring her to the emergency room. Her cough has been noted to be mostly clear thin sputum with occasional bits of yellowish thick mucus noted. She denied fever, chills, hemoptysis, nausea, vomiting, chest pain, abdominal pain, and rash. Upon EMS arrival at her home she was found to have an O2 sat of 88% on room air which gradually worsened despite giving her supplemental oxygen and a nebulizer treatment. She was subsequently transported to the emergency room where upon arrival her O2 sat did drop to the upper 87% on 2 L of oxygen per nasal cannula. Due to her worsening despite treatment she was placed on BiPAP. Her chest x-ray showed no evidence of pneumonia. She was subsequently admitted for further evaluation and treatment of her acute exacerbation of COPD with acute hypoxic respiratory failure. Reason For Visit: COPD EXACERBATION Physical Exam Vital Signs: Temp Pulse Resp BP Pulse Ox 97.3 F 98 21 H 130/65 H 97 05/27/18 15:13 05/27/18 15:13 05/27/18 15:13 05/27/18 15:13 05/27/18 15:13 Intake & Output 05/25/18 05/26/18 05/27/18 23:59 23:59 23:59 Intake Total 764 Balance 764 Weight 77.6 kg General appearance: PRESENT: no acute distress, cooperative Head exam: PRESENT: atraumatic, normocephalic Eye exam: PRESENT: conjunctiva pink, EOMI Ear exam: PRESENT: normal external ear exam. ABSENT: drainage Mouth exam: PRESENT: neck supple, tongue midline Neck exam: ABSENT: thyromegaly, tracheal deviation Respiratory exam: PRESENT: decreased breath sounds - Mildly decreased breath sounds noted throughout the chest, prolonged expiratory phas - Moderately prolonged expiratory phase is noted throughout the pulmonary exam, symmetrical, wheezes - Moderate expiratory and end expiratory wheezes are noted in all preciado. Cardiovascular exam: PRESENT: RRR, tachycardia. ABSENT: clicks, gallop, rubs Vascular exam: PRESENT: normal capillary refill. ABSENT: pallor GI/Abdominal exam: PRESENT: normal bowel sounds, soft Rectal exam: PRESENT: deferred Extremities exam: ABSENT: joint swelling, pedal edema Musculoskeletal exam: ABSENT: deformity, dislocation Neurological exam: PRESENT: alert, oriented to person, oriented to place, oriented to time, oriented to situation Psychiatric exam: PRESENT: appropriate affect, normal mood Skin exam: PRESENT: dry, intact, warm Results Laboratory Results: 05/27/18 04:58 05/27/18 04:58 05/27/18 05/27/18 05/27/18 04:58 04:58 06:30 WBC 7.6 RBC 4.56 Hgb 12.0 Hct 35.4 L MCV 78 L MCH 26.4 L MCHC 34.0 RDW 14.0 Plt Count 399 Seg Neutrophils % 88.1 H Lymphocytes % 10.5 L Monocytes % 1.1 L Eosinophils % 0.1 Basophils % 0.2 Absolute Neutrophils 6.7 Absolute Lymphocytes 0.8 Absolute Monocytes 0.1 Absolute Eosinophils 0.0 Absolute Basophils 0.0 Carbonic Acid 1.49 H HCO3/H2CO3 Ratio 18:1 ABG pH 7.36 ABG pCO2 49.5 H ABG pO2 82.3 ABG HCO3 27.2 H ABG O2 Saturation 95.6 ABG Base Excess 1.1 FiO2 30% Sodium 144.4 Potassium 4.6 D Chloride 105 Carbon Dioxide 26 Anion Gap 13 BUN 14 Creatinine 0.59 Est GFR ( Amer) > 60 Est GFR (Non-Af Amer) > 60 Glucose 181 H Calcium 9.8 Phosphorus 4.9 H Magnesium 2.4 H Impressions: Chest X-Ray 05/26/18 19:33 IMPRESSION: NO ACUTE RADIOGRAPHIC FINDING IN THE CHEST. Assessment & Plan - Diagnosis (1) Acute respiratory failure with hypoxemia Is this a current diagnosis for this admission?: Yes Plan: Patient will be supported with supplemental oxygen and advanced airway pressure assist devices as needed. Aggressive pulmonary toilet will be used in addition to intravenous steroids to help to resolve her acute bronchospasm and alleviate her respiratory failure. (2) Exacerbation of asthma Qualifiers: Asthma severity: moderate Asthma persistence: unspecified Qualified Code( s): J45.901 - Unspecified asthma with (acute) exacerbation Is this a current diagnosis for this admission?: Yes Plan: Patient will be treated with an aggressive pulmonary toilet utilizing albuterol , Atrovent, Xopenex and Pulmicort nebulizer therapies as well as intravenous steroids utilizing Solu-Medrol. Supplemental oxygen will be provided as needed. (3) Hyperglycemia, drug-induced Is this a current diagnosis for this admission?: Yes Plan: Patient is received Solu-Medrol which will substantially boost her blood sugar. She will have fingerstick blood sugars performed before meals and at bedtime with a sliding scale Humalog insulin for supplemental control as needed. (4) Hypertension Qualifiers: Hypertension type: essential hypertension Qualified Code(s): I10 - Essential (primary) hypertension Is this a current diagnosis for this admission?: Yes Plan: Patient has been continued on her usual prehospital antihypertensive therapy with Cardizem and carvedilol. - Time Time Spent with patient: 15-24 minutes Medications reviewed and adjusted accordingly: Yes Anticipated discharge: Home
[2018-05-27] MEDS ORDERED: MONTELUKAST SODIUM 10 MG TABLET PO SCH (18:00)
[2018-05-27] MEDS: BUDESONIDE NEB 0.5 MG/2 ML AMPUL NEB SCH (20:28)
[2018-05-27] MEDS: ACETYLCYSTEINE 20% SOLN 800 MG/4 ML VIAL.NEB NEB SCH (20:28)
[2018-05-27] MEDS: ALBUTEROL SULFATE 0.083% NEB 2.5 MG/3 ML AMPUL NEB PRN (20:28)
[2018-05-27] MEDS: AZITHROMYCIN 500 MG in DEXTROSE 5%-WATER 250 ML IV SCH (22:25)
[2018-05-28] MEDS: LEVALBUTEROL HCL NEB 1.25 MG/3 ML AMPUL NEB SCH ×3 (00:25→17:08)
[2018-05-28] MEDS: IPRATROPIUM BROMIDE 0.02% NEB 0.5 MG/2.5 ML AMPUL NEB SCH ×3 (00:25→17:08)
[2018-05-28 05:02] LABS: HEMATOCRIT 34.1 % (36.0-47.0); HEMOGLOBIN 11.7 g/dL (12.0-15.5); MEAN CORPUSCULAR HEMOGLOBIN 26.5 pg (27.0-33.4); MEAN CORPUSCULAR HGB CONC 34.3 g/dL (32.0-36.0); MEAN CORPUSCULAR VOLUME 77 fl (80-97); PLATELET COUNT 399 10^3/uL (150-450); RED BLOOD COUNT 4.41 10^6/uL (3.72-5.28); RED CELL DISTRIBUTION WIDTH 14.3 % (11.5-14.0); WHITE BLOOD COUNT 9.4 10^3/uL (4.0-10.5)
[2018-05-28 05:04] LABS: VENOUS BLOOD BASE EXCESS 1.4 mmol/L; VENOUS BLOOD PCO2 46.3 mmHg (35-63); VENOUS BLOOD PH 7.38 (7.30-7.42)
[2018-05-28] MEDS: METHYLPREDNISOLONE INJ 40 MG/1 ML SDV IV SCH (05:05)
[2018-05-28 05:26] LABS: ANION GAP 14 (5-19); BLOOD UREA NITROGEN 20 mg/dL (7-20); CALCIUM 10.1 mg/dL (8.4-10.2); CARBON DIOXIDE 26 mmol/L (22-30); CHLORIDE 106 mmol/L (98-107); GLUCOSE 183 mg/dL (75-110); POTASSIUM 4.5 mmol/L (3.6-5.0); SODIUM 145.6 mmol/L (137-145); TRIGLYCERIDES 51 mg/dL (<150)
[2018-05-28 05:37] LABS: DIRECT LDL 148 mg/dL (<100)
[2018-05-28] MEDS: ALBUTEROL SULFATE 0.083% NEB 2.5 MG/3 ML AMPUL NEB PRN (05:47)
[2018-05-28] MEDS: ACETYLCYSTEINE 20% SOLN 800 MG/4 ML VIAL.NEB NEB SCH (08:19)
[2018-05-28] MEDS: BUDESONIDE NEB 0.5 MG/2 ML AMPUL NEB SCH (08:19)
[2018-05-28] MEDS: DILTIAZEM HCL 240 MG CAPSULE.CR PO SCH (09:35)
[2018-05-28] MEDS: METFORMIN HCL 500 MG TABLET PO SCH (09:35)
[2018-05-28] MEDS: CARVEDILOL 3.125 MG TABLET PO SCH (09:35)
[2018-05-28] MEDS: INSULIN LISPRO 100 UNIT/ML 3 ML VIAL SUBCUT PRN ×2 (09:36→12:50)
[2018-05-28] MEDS: ENOXAPARIN SODIUM INJ 40 MG/0.4 ML DISP.SYRIN SUBCUT SCH (09:36)
--- NOTE | 2018-05-28 10:47 | EKG REPORT ---
SEVERITY:- NORMAL ECG - SINUS RHYTHM : Confirmed by: Tianna Xavier 28-May-2018 10:46:28
--- NOTE | 2018-05-28 15:01 | PDOC DISCHARGE SUMMARY ---
General - Admit/Disc Date/PCP Admission Date/Primary Care Provider: 05/26/18 21:18 BONIFACIO MELENDEZ, DEEDEE-Luana Discharge Date: 05/28/18 - Discharge Diagnosis (1) Acute respiratory failure with hypoxemia Is this a current diagnosis for this admission?: Yes Summary: Patient will be supported with supplemental oxygen and advanced airway pressure assist devices as needed. Aggressive pulmonary toilet will be used in addition to intravenous steroids to help to resolve her acute bronchospasm and alleviate her respiratory failure. 05/28/2018: Patient is responded very well to her regiment of an aggressive pulmonary toilet and intravenous steroids. Her need for supplemental oxygen has gradually diminished and at the present time she does not require oxygen for mild to moderate activity and is perfectly comfortable for long periods of time at rest or other usual daily activities without utilizing supplemental oxygen. Patient will therefore be discharged home without oxygen therapy. (2) Exacerbation of asthma Is this a current diagnosis for this admission?: Yes Summary: Patient will be treated with an aggressive pulmonary toilet utilizing albuterol , Atrovent, Xopenex and Pulmicort nebulizer therapies as well as intravenous steroids utilizing Solu-Medrol. Supplemental oxygen will be provided as needed. 05/28/2018: Patient is doing exceptionally well today after continuing her nebulizer therapies. She feels that the Xopenex and Atrovent help her much more than her DuoNeb does at home and she feels less jittery and does not experience palpitations with it. Patient will be discharged home with Xopenex and Atrovent to take the place of her DuoNeb treatments. Her home regiment will otherwise be continued as it was prescribed prior to this hospitalization. (3) Hyperglycemia, drug-induced Is this a current diagnosis for this admission?: Yes Summary: Patient is received Solu-Medrol which will substantially boost her blood sugar. She will have fingerstick blood sugars performed before meals and at bedtime with a sliding scale Humalog insulin for supplemental control as needed. 05/28/2018: Patient is done well with her blood sugar being reasonably well managed despite the use of intravenous Solu-Medrol. Her sliding scale Humalog is managed to keep her before meals and at bedtime blood sugars in the range of 175-200. I am certain this will improve dramatically after discharge and I am making no changes to her diabetic regimen. (4) Hypertension Is this a current diagnosis for this admission?: Yes Summary: Patient has been continued on her usual prehospital antihypertensive therapy with Cardizem and carvedilol. These medications have provided excellent blood pressure control during her hospital course. - Additional Information Resuscitation Status: Full Code Discharge Diet: As Tolerated, Diabetic Discharge Activity: Activity As Tolerated, Walk Frequently Prescriptions: Ipratropium [place] [Atrovent 0.02% Neb 0.5 mg/2.5 ml Ampul] 0.5 mg NEB TID 30 Days #90 [email or web address] Levalbuterol HCl [Xopenex Neb 1.25 mg/3 ml Ampul] 1.25 mg NEB TID 30 Days #90 [email or web address] Home Medications: Albuterol Sulfate [Proair HFA] 2 puff IH Q4HP PRN 01/17/18 Budesonide/Formoterol Fumarate [Symbicort HFA 160-4.5 mcg Inhaler 6 gm] 2 puff IH Q12 01/17/18 Carvedilol [Coreg 3.125 mg Tablet] 3.125 mg PO Q12 01/17/18 Diltiazem HCl [Cardizem LA] 240 mg PO Q12 01/17/18 Metformin HCl [Glucophage 500 mg Tablet] 500 mg PO BID 01/17/18 Montelukast Sodium [Singulair 10 mg Tablet] 10 mg PO QPM 01/17/18 Albuterol Sulfate [Ventolin 0.083% Neb 2.5 mg/3 mL Ampul] 1 vial NEB Q4 PRN #20 vial 05/06/18 Ipratropium [place] [Atrovent 0.02% Neb 0.5 mg/2.5 ml Ampul] 0.5 mg NEB TID 30 Days #90 [email or web address] 05/28/18 Levalbuterol HCl [Xopenex Neb 1.25 mg/3 ml Ampul] 1.25 mg NEB TID 30 Days #90 [email or web address] 05/28/18 History of Present Illness Patient complains of: Dyspnea History of Present Illness: KIMBERLY STEWART is a 57 year old female who presented with a 2-day history of progressively worsening dyspnea with a productive cough and progressively worsening wheezing. She acknowledges a history of COPD and asthma and today her dyspnea became so severe that she decided to call for the ambulance to bring her to the emergency room. Her cough has been noted to be mostly clear thin sputum with occasional bits of yellowish thick mucus noted. She denied fever, chills, hemoptysis, nausea, vomiting, chest pain, abdominal pain, and rash. Upon EMS arrival at her home she was found to have an O2 sat of 88% on room air which gradually worsened despite giving her supplemental oxygen and a nebulizer treatment. She was subsequently transported to the emergency room where upon arrival her O2 sat did drop to the upper 87% on 2 L of oxygen per nasal cannula. Due to her worsening despite treatment she was placed on BiPAP. Her chest x-ray showed no evidence of pneumonia. She was subsequently admitted for further evaluation and treatment of her acute exacerbation of COPD with acute hypoxic respiratory failure. Hospital Course Hospital Course: Kimberly was continued on a very aggressive pulmonary toilet and supplemental oxygen as well as intravenous Solu-Medrol as the primary modes of therapy. Her hypoxia responded well and her oxygen requirement was significantly decreased to the point where she was not requiring oxygen supplementation prior to discharge. Her dyspnea and wheezing responded well to the steroids and bronchodilator therapies and her exam was essentially clear with the exception of slightly decreased breath sounds throughout all preciado associate with her chronic disease of the time of discharge. Her excellent progress it was felt she was ready to be discharged home in improved and stable condition on 2017. Physical Exam Vital Signs: Temp Pulse Resp BP Pulse Ox 97.4 F 88 22 H 99/62 L 96 05/28/18 11:44 05/28/18 11:44 05/28/18 11:44 05/28/18 11:44 05/28/18 11:44 Intake & Output 05/26/18 05/27/18 05/28/18 23:59 23:59 23:59 Intake Total 1488 1051 Balance 1488 1051 Weight 77.6 kg 78.4 kg General appearance: PRESENT: no acute distress, cooperative Head exam: PRESENT: atraumatic, normocephalic Eye exam: PRESENT: conjunctiva pink, EOMI Ear exam: PRESENT: normal external ear exam Mouth exam: PRESENT: neck supple Respiratory exam: PRESENT: clear to auscultation connor, decreased breath sounds - Breath sounds are mildly decreased throughout all lung preciado consistent with mild to moderate COPD, symmetrical, unlabored Cardiovascular exam: PRESENT: RRR. ABSENT: clicks, gallop, rubs Vascular exam: PRESENT: normal capillary refill. ABSENT: pallor GI/Abdominal exam: PRESENT: normal bowel sounds, soft Rectal exam: PRESENT: deferred Extremities exam: ABSENT: joint swelling, pedal edema Musculoskeletal exam: PRESENT: full ROM, normal inspection Neurological exam: PRESENT: alert, oriented to person, oriented to place, oriented to time, oriented to situation Psychiatric exam: PRESENT: appropriate affect, normal mood Skin exam: PRESENT: dry, intact, warm Results Laboratory Results: 05/28/18 04:29 05/28/18 04:29 05/28/18 05/28/18 05/28/18 04:29 04:29 04:29 WBC 9.4 RBC 4.41 Hgb 11.7 L Hct 34.1 L MCV 77 L MCH 26.5 L MCHC 34.3 RDW 14.3 H Plt Count 399 VBG pH VBG pCO2 VBG HCO3 VBG Base Excess Sodium 145.6 H Potassium 4.5 Chloride 106 Carbon Dioxide 26 Anion Gap 14 BUN 20 Creatinine 0.55 Est GFR ( Amer) > 60 Est GFR (Non-Af Amer) > 60 Glucose 183 H Calcium 10.1 Magnesium 2.4 H Triglycerides 51 Cholesterol 236.20 H LDL Cholesterol Direct 148 H VLDL Cholesterol 10.0 HDL Cholesterol 58 TSH 0.21 L 05/28/18 04:29 WBC RBC Hgb Hct MCV MCH MCHC RDW Plt Count VBG pH 7.38 VBG pCO2 46.3 VBG HCO3 27.0 VBG Base Excess 1.4 Sodium Potassium Chloride Carbon Dioxide Anion Gap BUN Creatinine Est GFR ( Amer) Est GFR (Non-Af Amer) Glucose Calcium Magnesium Triglycerides Cholesterol LDL Cholesterol Direct VLDL Cholesterol HDL Cholesterol TSH 05/28/18 05:10 Sputum Gram Stain - Final 05/28/18 05:10 Sputum Sputum Culture - Final Impressions: Chest X-Ray 05/26/18 19:33 IMPRESSION: NO ACUTE RADIOGRAPHIC FINDING IN THE CHEST. Qualifiers - * PATIENT BEING DISCHARGED WITH ANY OF THE FOLLOWING DIAGNOSIS: No Plan Discharge Plan: Discharged home in improved and stable condition Time Spent: Greater than 30 Minutes
[2018-05-28 16:04] VITALS: BP 129/63
[2018-05-28] MEDS ORDERED: AZITHROMYCIN 250 MG TABLET PO SCH (22:00)
== END 2018-05-28 16:45 | disposition home or self-care (01) | DRG 189 ==
LOC: ER 19:22 → EH 21:18 → 3W 23:03 → EH 23:19 → 3S 05-27 01:37
PROVIDERS: ADMIT Internal Medicine; ATTEND Internal Medicine
PROC: 3E0234Z Introduction of Serum, Toxoid and Vaccine into Muscle, Percutaneous Approach (ICD-10-PCS; principal; 2018-05-28)
DX: J96.01 Acute respiratory failure with hypoxia (principal); J44.1 Chronic obstructive pulmonary disease with (acute) exacerbation; J45.901 Unspecified asthma with (acute) exacerbation; E11.65 Type 2 diabetes mellitus with hyperglycemia; I10 Essential (primary) hypertension; K21.9 Gastro-esophageal reflux disease without esophagitis; Z79.84 Long term (current) use of oral hypoglycemic drugs; Z79.51 Long term (current) use of inhaled steroids; Z79.899 Other long term (current) drug therapy; Z23 Encounter for immunization
CPT/HCPCS: 36415; 36600; 71045; 80048; 80053; 80061; 82803; 82962; 83036; 83735; 84100; 84443; 84484; 85025; 85027; 87205; 87804; 90686; 93005; 93010; 94640; 94660; 94799; 96365; 96366; 96375; 99291; J0456; J1815; J2920; J2930; J3475; J3490; J7060; J7620

== ENCOUNTER 2018-06-07 17:55 | Inpatient (IN) | payer SELFPAY ==
[2018-06-07] MEDS ORDERED: IPRATROPIUM/ALBUTEROL 0.5-2.5 MG/3 ML AMPUL NEB ONE ×3 (18:10→20:22)
[2018-06-07] MEDS ORDERED: ALBUTEROL SULFATE 0.083% NEB 2.5 MG/3 ML AMPUL NEB ONE (18:11)
[2018-06-07] MEDS ORDERED: METHYLPREDNISOLONE INJ 125 MG/2 ML SDV ONE (18:11)
[2018-06-07] MEDS ORDERED: METHYLPREDNISOLONE INJ 125 MG/2 ML SDV IV ONE (18:18)
[2018-06-07] MEDS ORDERED: MAGNESIUM SULFATE/D5W 1 GM/100 ML RTUPB IV ONE (18:18)
--- NOTE | 2018-06-07 18:24 | ER Document Report ---
ED General - General Chief Complaint: Breathing Difficulty Stated Complaint: SHORT OF BREATH Time Seen by Provider: 06/07/18 18:16 Mode of Arrival: Ambulatory Information source: Patient Notes: This is a 57-year-old female with a history of COPD who presents to the emergency room with severe respiratory distress. Patient states she was usual state of health until she was in the kitchen and was exposed to fumes from the stove. Patient's oxygen saturation at the time I entered the room was 84% on room air. TRAVEL OUTSIDE OF THE [place] IN LAST 30 DAYS: No - HPI Onset: Just prior to arrival Onset/Duration: Sudden Quality of pain: No pain Severity: None Pain Level: Denies Associated symptoms: Nonproductive cough, Shortness of breath. denies: Chest pain, Fever Exacerbated by: Movement Relieved by: Denies Similar symptoms previously: Yes Recently seen / treated by doctor: Yes - Related Data Allergies/Adverse Reactions: benzonatate [From Tessalon Perles] Allergy (Verified 06/07/18 18:20) RCING HEARTBEART NSAIDS (Non-Steroidal Anti-Inflamma Allergy (Verified 06/07/18 18:20) RACING HEARTBEAT Past Medical History - General Information source: Patient - Social History Smoking Status: Former Smoker Cigarette use (# per day): No Chew tobacco use (# tins/day): No Frequency of alcohol use: None Drug Abuse: None Lives with: Family Family History: COPD, DM, Hypertension Patient has suicidal ideation: No Patient has homicidal ideation: No - Past Medical History Cardiac Medical History: Reports: Hx Hypertension Pulmonary Medical History: Reports: Hx Asthma, Hx Bronchitis, Hx COPD, Hx Pneumonia Denies: Hx Intubation Endocrine Medical History: Reports: Hx Diabetes Mellitus Type 2 Renal/ Medical History: Denies: Hx Peritoneal Dialysis GI Medical History: Denies: Hx Gastroesophageal Reflux Disease Musculoskeletal Medical History: Reports Hx Arthritis Psychiatric Medical History: Denies: Hx Depression Surgical Hx: Negative - Immunizations Hx Diphtheria, Pertussis, Tetanus Vaccination: Yes Review of Systems - Review of Systems Constitutional: denies: Chills, Fever EENT: No symptoms reported Cardiovascular: denies: Chest pain, Palpitations, Heart racing Respiratory: Cough, Short of breath, Wheezing Gastrointestinal: No symptoms reported Genitourinary: No symptoms reported Female Genitourinary: No symptoms reported Musculoskeletal: No symptoms reported Skin: No symptoms reported Hematologic/Lymphatic: No symptoms reported Neurological/Psychological: No symptoms reported Physical Exam - Vital signs Vitals: Resp Pulse Ox 20 94 06/07/18 18:13 06/07/18 18:13 Notes: Physical exam: GENERAL: She is alert and oriented x3, severe respiratory distress, accessory muscle use, diffuse wheezing. Oxygen saturation was in the upper 80s in triage. HEAD: Atraumatic, normocephalic. EYES: Pupils equal round and reactive to light, extraocular movements intact, sclera anicteric, conjunctiva are normal. ENT: TMs normal, nares patent, oropharynx clear without exudates. Moist mucous membranes. NECK: Normal range of motion, supple without obvious mass or JVD. LUNGS: Tight breath sounds bilaterally with diffuse bilateral wheezes. His accessory muscle use. HEART: Regular rate and rhythm without murmurs, rubs or gallops. ABDOMEN: Soft, normoactive bowel sounds. No tenderness to palpation. No guarding, no rebound. No masses appreciated. EXTREMITIES: Normal range of motion, no pitting or edema. No clubbing or cyanosis. NEUROLOGICAL: Cranial nerves II through XII grossly intact. Normal speech, moving all extremities. PSYCH: Normal mood, normal affect. SKIN: Warm, Dry, normal turgor, no rashes or lesions noted. Course - Re-evaluation Re-evalutation: 06/07/18 19:15 Patient given IV steroids, nebulizers, IV magnesium and is on BiPAP. She continues to wheeze but does appear better. She is hemodynamically stable at this time. - Vital Signs Vital signs: Temp Pulse Resp BP Pulse Ox 16 120/73 99 06/07/18 19:21 06/07/18 19:21 06/07/18 19:21 - Laboratory Result Diagrams: 06/07/18 18:16 06/07/18 18:16 Laboratory results interpreted by me: 06/07/18 06/07/18 18:16 18:16 WBC 13.7 H MCV 79 L MCH 26.0 L RDW 14.6 H Absolute Monocytes 1.5 H Absolute Eosinophils 0.7 H Sodium 148.8 H Glucose 137 H Calcium 10.3 H Alkaline Phosphatase 127 H - Diagnostic Test Radiology reviewed: Image reviewed, Reports reviewed - Chest x-ray shows no infiltrates or effusions - EKG Interpretation by Me Rate: Tachycardia - EKG shows sinus tachycardia with a ventricular rate of 2021, no acute ST-T wave changes Critical Care Note - Critical Care Note Total time excluding time spent on procedures (mins): 60 Discharge - Discharge Clinical Impression: Respiratory failure, Acute COPD exacerbation Condition: Stable Disposition: ADMITTED INPATIENT [facility] Referrals: BONIFACIO MELENDEZ FNP-C [Primary Care Provider] - Follow up as needed
[2018-06-07 18:29] LABS: ABSOLUTE BASOPHILS # (AUTO) 0.1 10^3/uL (0.0-0.2); ABSOLUTE EOSINOPHILS # (AUTO) 0.7 10^3/uL (0.0-0.6); ABSOLUTE LYMPHOCYTES (AUTO) 3.2 10^3/uL (0.5-4.7); ABSOLUTE MONOCYTES (AUTO) 1.5 10^3/uL (0.1-1.4); ABSOLUTE NEUT (AUTO) 8.2 10^3/uL (1.7-8.2); BASOPHILS % (AUTO) 0.5 % (0-2); EOSINOPHILS % (AUTO) 5.4 % (0-6); HEMATOCRIT 39.8 % (36.0-47.0); HEMOGLOBIN 13.1 g/dL (12.0-15.5); LYMPHOCYTES % (AUTO) 23.5 % (13-45); MEAN CORPUSCULAR VOLUME 79 fl (80-97); MONOCYTES % (AUTO) 11.3 % (3-13); PLATELET COUNT 394 10^3/uL (150-450); RED BLOOD COUNT 5.06 10^6/uL (3.72-5.28); RED CELL DISTRIBUTION WIDTH 14.6 % (11.5-14.0); SEGMENTED NEUTROPHILS % (AUTO) 59.3 % (42-78); TOTAL CELLS COUNTED % (AUTO) 100 %; VENOUS BLOOD BASE EXCESS 4.3 mmol/L; VENOUS BLOOD HCO3 30.6 mmol/L (20-32); VENOUS BLOOD PCO2 52.4 mmHg (35-63); VENOUS BLOOD PH 7.38 (7.30-7.42); WHITE BLOOD COUNT 13.7 10^3/uL (4.0-10.5)
[2018-06-07 18:50] LABS: ALANINE AMINOTRANSFERASE 19 U/L (9-52); ALBUMIN 4.3 g/dL (3.5-5.0); ALKALINE PHOSPHATASE 127 U/L (38-126); ANION GAP 14 (5-19); ASPARTATE AMINO TRANSFERASE 17 U/L (14-36); BILIRUBIN,DIRECT 0.2 mg/dL (0.0-0.4); BILIRUBIN,TOTAL 0.3 mg/dL (0.2-1.3); BLOOD UREA NITROGEN 13 mg/dL (7-20); CALCIUM 10.3 mg/dL (8.4-10.2); CARBON DIOXIDE 28 mmol/L (22-30); CHLORIDE 107 mmol/L (98-107); CREATINE KINASE 51 U/L (30-135); GLUCOSE 137 mg/dL (75-110); POTASSIUM 4.1 mmol/L (3.6-5.0); SODIUM 148.8 mmol/L (137-145); TOTAL PROTEIN 7.4 g/dL (6.3-8.2)
[2018-06-07 19:03] LABS: CREATINE KINASE MB 0.52 ng/mL (<4.55)
[2018-06-07 19:04] LABS: TROPONIN I < 0.012 ng/mL
--- NOTE | 2018-06-07 19:06 | RADIOLOGY REPORT (SQ) ---
EXAM DESCRIPTION: CHEST SINGLE VIEW COMPLETED DATE/TIME: 06/07/2018 6:20 pm REASON FOR STUDY: bed 2 db COMPARISON: 05/26/2018. EXAM PARAMETERS: NUMBER OF VIEWS: One view. TECHNIQUE: Single frontal radiographic view of the chest acquired. RADIATION DOSE: NA LIMITATIONS: None. FINDINGS: LUNGS AND PLEURA: No opacities, masses or pneumothorax. No pleural effusion. MEDIASTINUM AND HILAR STRUCTURES: No masses. Contour normal. HEART AND VASCULAR STRUCTURES: Heart normal in size. Normal vasculature. BONES: No acute findings. HARDWARE: None in the chest. OTHER: No other significant finding. IMPRESSION: NO ACUTE RADIOGRAPHIC FINDING IN THE CHEST. TECHNICAL DOCUMENTATION: JOB ID: [id number] [employer]- All Rights Reserved Reading location - IP/workstation name: [email or web address]
--- NOTE | 2018-06-07 19:43 | EKG REPORT ---
SEVERITY:- OTHERWISE NORMAL ECG - SINUS TACHYCARDIA : Confirmed by: Raamn Hernandez MD 07-Jun-2018 19:42:44
[2018-06-07 20:08] LABS: APPEARANCE,URINE SLIGHTLY-CLOUDY; BILIRUBIN,URINE NEGATIVE (NEGATIVE); COLOR,URINE YELLOW; GLUCOSE, URINE NEGATIVE (NEGATIVE); KETONES,URINE NEGATIVE (NEGATIVE); LEUKOCYTE ESTERASE,URINE NEGATIVE (NEGATIVE); NITRITE,URINE NEGATIVE (NEGATIVE); PROTEIN,URINE NEGATIVE (NEGATIVE); URINE SPECIFIC GRAVITY 1.013; UROBILINOGEN,URINE NEGATIVE mg/dL (<2.0)
[2018-06-07] MEDS ORDERED: HYDRALAZINE HCL INJ/PF 20 MG/1 ML SDV IV PRN (21:06)
[2018-06-07] MEDS ORDERED: GUAIFENESIN SYRP 200 MG/10 ML UDC PO PRN (21:08)
[2018-06-07] MEDS ORDERED: ACETAMINOPHEN 325 MG TABLET PO PRN (21:08)
[2018-06-07] MEDS ORDERED: IPRATROPIUM/ALBUTEROL 0.5-2.5 MG/3 ML AMPUL NEB PRN (21:08)
[2018-06-07] MEDS ORDERED: CHLORPHENIRAMINE MALEATE 4 MG TABLET PO ONE (22:00)
[2018-06-07] MEDS ORDERED: DILTIAZEM HCL 240 MG PO SCH (22:00)
[2018-06-07] MEDS ORDERED: FAMOTIDINE 20 MG TABLET PO ONE (22:00)
[2018-06-07] MEDS: LEVALBUTEROL HCL NEB 1.25 MG/3 ML AMPUL NEB SCH (22:07)
[2018-06-07] MEDS: HEPARIN SOD (PORCINE) 5,000 UNIT/ML 1 ML SYRINGE SUBCUT SCH ×2 (22:14→22:15)
[2018-06-07] MEDS: CARVEDILOL 3.125 MG TABLET PO SCH (22:24)
[2018-06-07] MEDS: LEVOFLOXACIN 750 MG/D5W RTU 750 MG/150 ML RTUPB IV SCH (22:27)
[2018-06-07] MEDS: FLUTICASONE NASAL SPRAY 50 MCG/SPRY 120 SPRAY/16 GM NASL SCH (22:31)
[2018-06-07] MEDS: LACTULOSE SYRUP 20 GM/30 ML UDCUP PO ONE ×2 (22:39→22:47)
[2018-06-07] MEDS: PREDNISONE 20 MG TABLET PO SCH (22:41)
[2018-06-07] MEDS: FAMOTIDINE 20 MG TABLET PO SCH (22:46)
[2018-06-07] MEDS: DILTIAZEM HCL 240 MG CAPSULE.CR PO SCH (22:48)
[2018-06-08] MEDS: HEPARIN SOD (PORCINE) 5,000 UNIT/ML 1 ML SYRINGE SUBCUT SCH ×3 (05:25→22:17)
--- NOTE | 2018-06-08 05:43 | PDOC H&P ---
History of Present Illness Admission Date/PCP: 06/07/18 21:28 JENNIFER MEYER Patient complains of: Shortness of breath and wheeze History of Present Illness: ADDIE STEWART is a 57 year old female with a past medical history of aspirin exacerbated airway disease, nasal polyp, GERD, and COPD. She presents with 12 hours of severe respiratory distress following exposure to cooking smoke. In the emergency room she is found to be in respiratory distress with tachypnea and oxygen saturations of 84% on room air. She is placed on continuous nebulizer followed by BiPAP, stress dose steroids and magnesium. She admits rhinorrhea, denies chest pain, sore throat, nausea, vomiting, diaphoresis or fever. She denies recent antibiotic use and referred to the hospitalist for admission Past Medical History Cardiac Medical History: Reports: Hypertension Pulmonary Medical History: Reports: Asthma, Bronchitis, Chronic Obstructive Pulmonary Disease (COPD), Pneumonia Denies: Intubation Endocrine Medical History: Reports: Diabetes Mellitus Type 2 GI Medical History: Denies: Gastroesophageal Reflux Disease Musculoskeltal Medical History: Reports: Arthritis Psychiatric Medical History: Denies: Depression Social History Information Source: Patient Lives with: Family Smoking Status: Former Smoker Frequency of Alcohol Use: None Hx Recreational Drug Use: No Drugs: None Hx Prescription Drug Abuse: No - Advance Directive Resuscitation Status: Full Code Family History Family History: COPD, DM, Hypertension Parental Family History Reviewed: Yes Children Family History Reviewed: Yes Sibling(s) Family History Reviewed.: Yes Medication/Allergy Home Medications: Albuterol Sulfate [Proair HFA] 2 puff IH Q4HP PRN 01/17/18 Budesonide/Formoterol Fumarate [Symbicort HFA 160-4.5 mcg Inhaler 6 gm] 2 puff IH Q12 01/17/18 Carvedilol [Coreg 3.125 mg Tablet] 3.125 mg PO Q12 01/17/18 Diltiazem HCl [Cardizem LA] 240 mg PO Q12 01/17/18 Metformin HCl [Glucophage 500 mg Tablet] 500 mg PO BID 01/17/18 Montelukast Sodium [Singulair 10 mg Tablet] 10 mg PO QPM 01/17/18 Albuterol Sulfate [Ventolin 0.083% Neb 2.5 mg/3 mL Ampul] 1 vial NEB Q4 PRN #20 vial 05/06/18 Ipratropium Catron [Atrovent 0.02% Neb 0.5 mg/2.5 ml Ampul] 0.5 mg NEB TID 30 Days #90 vial.neb 05/28/18 Levalbuterol HCl [Xopenex Neb 1.25 mg/3 ml Ampul] 1.25 mg NEB TID 30 Days #90 vial.neb 05/28/18 Allergies/Adverse Reactions: benzonatate [From Wes Blanco] Allergy (Verified 06/07/18 18:20) RCING HEARTBEART NSAIDS (Non-Steroidal Anti-Inflamma Allergy (Verified 06/07/18 18:20) RACING HEARTBEAT Review of Systems ROS unobtainable: Due to mental status - Shortness of breath Physical Exam Vital Signs: Temp Pulse Resp BP Pulse Ox 97.6 F 84 22 H 113/61 95 06/08/18 03:11 06/08/18 03:11 06/08/18 04:32 06/08/18 03:11 06/08/18 04:32 Intake & Output 06/06/18 06/07/18 06/08/18 11:59 11:59 11:59 Intake Total 150 Balance 150 General appearance: PRESENT: cooperative, obese, severe distress Head exam: PRESENT: atraumatic, normocephalic Eye exam: PRESENT: conjunctiva pink, EOMI, PERRLA. ABSENT: scleral icterus Ear exam: PRESENT: normal external ear exam Mouth exam: PRESENT: moist, tongue midline Neck exam: ABSENT: carotid bruit, JVD, lymphadenopathy, thyromegaly Respiratory exam: PRESENT: accessory muscle use, crackles, retraction, symmetrical, tachypnea, wheezes. ABSENT: rhonchi Cardiovascular exam: PRESENT: +S1, +S2, tachycardia Pulses: PRESENT: normal dorsalis pedis pul Vascular exam: PRESENT: normal capillary refill GI/Abdominal exam: PRESENT: normal bowel sounds, soft. ABSENT: distended, guarding, mass, organolmegaly, rebound, tenderness Rectal exam: PRESENT: deferred Extremities exam: PRESENT: full ROM. ABSENT: calf tenderness, clubbing, pedal edema Neurological exam: PRESENT: alert, awake, oriented to person, oriented to place , oriented to time, oriented to situation, CN II-XII grossly intact. ABSENT: motor sensory deficit Psychiatric exam: PRESENT: appropriate affect, normal mood. ABSENT: homicidal ideation, suicidal ideation Skin exam: PRESENT: dry, intact, warm. ABSENT: cyanosis, rash Results Impressions: Chest X-Ray 06/07/18 18:05 IMPRESSION: NO ACUTE RADIOGRAPHIC FINDING IN THE CHEST. Assessment & Plan - Diagnosis (1) Acute exacerbation of chronic obstructive pulmonary disease (COPD) Is this a current diagnosis for this admission?: Yes Plan: Steroids, supplemental oxygen, albuterol and Atrovent. (2) Hypertension Qualifiers: Is this a current diagnosis for this admission?: Yes Plan: Outpatient regiment with hydralazine as needed (3) Sinusitis Is this a current diagnosis for this admission?: Yes Plan: Presumed bacterial, Flonase and empiric antibiotics initiated. Follow-up CBC - Time Time Spent: 30 to 50 Minutes - Inpatient Certification Medical Necessity: Need Close Monitoring Due to Risk of Patient Decompensation
[2018-06-08 05:49] LABS: ABSOLUTE LYMPHOCYTES (AUTO) 0.9 10^3/uL (0.5-4.7); ABSOLUTE MONOCYTES (AUTO) 0.1 10^3/uL (0.1-1.4); ABSOLUTE NEUT (AUTO) 10.7 10^3/uL (1.7-8.2); BASOPHILS % (AUTO) 0.2 % (0-2); EOSINOPHILS % (AUTO) 0.1 % (0-6); HEMATOCRIT 36.6 % (36.0-47.0); HEMOGLOBIN 12.2 g/dL (12.0-15.5); LYMPHOCYTES % (AUTO) 7.7 % (13-45); MEAN CORPUSCULAR HEMOGLOBIN 26.1 pg (27.0-33.4); MEAN CORPUSCULAR HGB CONC 33.4 g/dL (32.0-36.0); MEAN CORPUSCULAR VOLUME 78 fl (80-97); MONOCYTES % (AUTO) 0.8 % (3-13); PLATELET COUNT 340 10^3/uL (150-450); RED BLOOD COUNT 4.68 10^6/uL (3.72-5.28); RED CELL DISTRIBUTION WIDTH 14.2 % (11.5-14.0); SEGMENTED NEUTROPHILS % (AUTO) 91.2 % (42-78); TOTAL CELLS COUNTED % (AUTO) 100 %; WHITE BLOOD COUNT 11.7 10^3/uL (4.0-10.5)
[2018-06-08 06:10] LABS: ANION GAP 13 (5-19); BLOOD UREA NITROGEN 14 mg/dL (7-20); CALCIUM 9.6 mg/dL (8.4-10.2); CARBON DIOXIDE 27 mmol/L (22-30); CHLORIDE 106 mmol/L (98-107); GLUCOSE 228 mg/dL (75-110); POTASSIUM 4.5 mmol/L (3.6-5.0); SODIUM 145.6 mmol/L (137-145)
[2018-06-08] MEDS: LEVALBUTEROL HCL NEB 1.25 MG/3 ML AMPUL NEB SCH ×3 (08:53→20:30)
[2018-06-08] MEDS: FLUTICASONE NASAL SPRAY 50 MCG/SPRY 120 SPRAY/16 GM NASL SCH ×2 (09:20→22:19)
[2018-06-08] MEDS: PREDNISONE 20 MG TABLET PO SCH ×2 (09:20→18:13)
[2018-06-08] MEDS: DILTIAZEM HCL 240 MG CAPSULE.CR PO SCH ×2 (09:20→22:18)
[2018-06-08] MEDS: CARVEDILOL 3.125 MG TABLET PO SCH ×2 (09:20→22:18)
[2018-06-08] MEDS: FAMOTIDINE 20 MG TABLET PO SCH ×2 (09:20→22:18)
--- NOTE | 2018-06-08 16:24 | PDOC PROGRESS REPORT ---
Subjective Progress Note for:: 06/08/18 Subjective:: No adverse events overnight. No new complaints. She was sitting up in the bed when I saw her, saying she had been tired of laying in the bed. She has not tried to get up and ambulate. Reason For Visit: COPD EXACERBATION PNEUMONIA Physical Exam Vital Signs: Temp Pulse Resp BP Pulse Ox 97.6 F 101 H 19 112/95 H 94 06/08/18 11:56 06/08/18 14:00 06/08/18 13:48 06/08/18 11:56 06/08/18 13:48 Intake & Output 06/07/18 06/08/18 06/09/18 06:59 06:59 06:59 Intake Total 150 591 Output Total 350 Balance -200 591 Weight 74.3 kg General appearance: PRESENT: no acute distress, cooperative, disheveled Respiratory exam: PRESENT: accessory muscle use - Mild, symmetrical, wheezes. ABSENT: rales, rhonchi, tachypnea Cardiovascular exam: PRESENT: RRR, +S1, +S2. ABSENT: diastolic murmur, systolic murmur Vascular exam: PRESENT: normal capillary refill GI/Abdominal exam: PRESENT: normal bowel sounds, soft. ABSENT: distended, guarding, rebound, tenderness Extremities exam: ABSENT: clubbing, pedal edema Musculoskeletal exam: PRESENT: normal inspection. ABSENT: deformity Neurological exam: PRESENT: alert, awake, oriented to person, oriented to place , oriented to time Psychiatric exam: PRESENT: appropriate affect, normal mood Skin exam: PRESENT: dry, warm Results Laboratory Results: 06/08/18 05:27 06/08/18 05:27 06/08/18 06/08/18 05:27 05:27 WBC 11.7 H RBC 4.68 Hgb 12.2 Hct 36.6 MCV 78 L MCH 26.1 L MCHC 33.4 RDW 14.2 H Plt Count 340 Seg Neutrophils % 91.2 H Lymphocytes % 7.7 L Monocytes % 0.8 L Eosinophils % 0.1 Basophils % 0.2 Absolute Neutrophils 10.7 H Absolute Lymphocytes 0.9 Absolute Monocytes 0.1 Absolute Eosinophils 0.0 Absolute Basophils 0.0 Sodium 145.6 H Potassium 4.5 Chloride 106 Carbon Dioxide 27 Anion Gap 13 BUN 14 Creatinine 0.55 Est GFR ( Amer) > 60 Est GFR (Non-Af Amer) > 60 Glucose 228 H Calcium 9.6 Impressions: Chest X-Ray 06/07/18 18:05 IMPRESSION: NO ACUTE RADIOGRAPHIC FINDING IN THE CHEST. Assessment & Plan - Diagnosis (1) Acute exacerbation of chronic obstructive pulmonary disease (COPD) Is this a current diagnosis for this admission?: Yes Plan: Continue steroids, antibiotics, nebulizer treatments, and supplemental O2. - Time Time Spent with patient: 25-34 minutes
[2018-06-08] MEDS: MONTELUKAST SODIUM 10 MG TABLET PO SCH (18:13)
[2018-06-08] MEDS: LEVOFLOXACIN 750 MG/D5W RTU 750 MG/150 ML RTUPB IV SCH (22:18)
[2018-06-09] MEDS ORDERED: GLUCAGON,HUMAN RECOMB 1 MG INJ IM PRN (01:12)
[2018-06-09] MEDS ORDERED: DEXTROSE 40% GEL 15 GM TUBE PO PRN (01:12)
[2018-06-09] MEDS ORDERED: DEXTROSE 50%-WATER SYRINGE 12.5 GM/25 ML DOSE IV PRN (01:12)
[2018-06-09] MEDS ORDERED: DEXTROSE 40% GEL 15 GM TUBE X 2 PO PRN (01:12)
[2018-06-09] MEDS ORDERED: DEXTROSE 50%-WATER SYRINGE 25 GM/50 ML DOSE IV PRN (01:12)
[2018-06-09] MEDS: INSULIN LISPRO 100 UNIT/ML 3 ML VIAL SUBCUT PRN ×2 (01:42→21:39)
[2018-06-09] MEDS: HEPARIN SOD (PORCINE) 5,000 UNIT/ML 1 ML SYRINGE SUBCUT SCH ×3 (07:29→21:30)
[2018-06-09] MEDS: LEVALBUTEROL HCL NEB 1.25 MG/3 ML AMPUL NEB SCH ×3 (08:31→20:50)
[2018-06-09] MEDS: DILTIAZEM HCL 240 MG CAPSULE.CR PO SCH ×2 (09:10→21:40)
[2018-06-09] MEDS: FAMOTIDINE 20 MG TABLET PO SCH ×2 (09:10→21:40)
[2018-06-09] MEDS: METFORMIN HCL 500 MG TABLET PO SCH ×2 (09:11→17:15)
[2018-06-09] MEDS: PREDNISONE 20 MG TABLET PO SCH ×2 (09:11→17:15)
[2018-06-09] MEDS: FLUTICASONE NASAL SPRAY 50 MCG/SPRY 120 SPRAY/16 GM NASL SCH ×2 (09:11→21:39)
[2018-06-09] MEDS: CARVEDILOL 3.125 MG TABLET PO SCH ×2 (09:11→21:40)
[2018-06-09] MEDS: GUAIFENESIN 600 MG TABLET.SA PO SCH ×2 (13:14→21:39)
--- NOTE | 2018-06-09 16:11 | PROGRESS NOTE E ---
Progress Note NAME: ADDIE STEWART : 1960 AGE: 57Y DATE: 06/09/2018 ROOM: 335 SUBJECTIVE: The patient is ambulating in the room when I entered. The patient states she feels better today in comparison to yesterday. The patient still has significant amount of conversational dyspnea. The patient denies any nausea, vomiting, or diarrhea. No dizziness, chest pain, fevers, chills. The patient has been afebrile. Blood pressure has been in good range. The patient has not voiced any other concerns at this time. REVIEW OF SYSTEMS: The rest of the review of systems is negative. MEDICATIONS: Reviewed. OBJECTIVE: GENERAL: The patient is a pleasant 57-year-old -[place]ong[place] female who is awake, alert, and oriented to person, place, time, and situation. She is verbal and conversational. Does not appear to be in acute distress. VITAL SIGNS: Temperature 97.9, pulse 78, respirations 17, blood pressure 123/65, oxygen saturation 99% on 1 liter. SKIN: Warm and dry, no rashes. Not diaphoretic. HEENT: Pupils equal, round, reactive to light and accommodation. NECK: No evidence of JVP. CVS: Heart is regular. There is no murmur or rub. CHEST: The patient does have wheezes noted throughout both upper lung preciado, symmetrical, unlabored. ABDOMEN: Soft, nontender. EXTREMITIES: No clubbing, cyanosis, or edema. PSYCHIATRIC: Appropriate affect, pleasant mood. DIAGNOSTICS/LAB VALUES: Hematology done 06/08/2018: WBC 11.7, hemoglobin 12.2, hematocrit 36.6, platelet count 345. Chemistry obtained 06/08/2018: Sodium 145, potassium 4.5, chloride 106, carbon dioxide 27, BUN 14, creatinine 0.55, glucose 228, calcium 9.6. ASSESSMENT AND PLAN: 1. CHRONIC OBSTRUCTIVE PULMONARY DISEASE EXACERBATION. The patient does feel better in comparison to yesterday; however, she still has significant conversational dyspnea. Will continue steroids, nebulizers, and supplemental O2 in an effort to titrate. 2. HYPERTENSION. The patient's blood pressure has been in a decent range. Will continue current management. 3. DIABETES MELLITUS TYPE 2. Will place the patient on before meals and bedtime Accu-Cheks to go along with sliding scale coverage. 4. ACUTE ON CHRONIC HYPOXEMIC RESPIRATORY FAILURE. The patient was requiring O2 upon admission. Overall, this is much improved. DISPOSITION: The patient is a full code. Depending on the patient's symptomatology and diagnostic findings, will reevaluate in the a.m. Time spent on this followup including assessment, plan, physical examination, patient education, and review of records is 20 minutes. DICTATING PHYSICIAN: ALHAJI FINLEY NP [id number] PHY#: [id number] ID: [id number] JOB#: [id number] ACCT: [id number] cc: >
[2018-06-09] MEDS: MONTELUKAST SODIUM 10 MG TABLET PO SCH (17:15)
[2018-06-09] MEDS: LEVOFLOXACIN 750 MG/D5W RTU 750 MG/150 ML RTUPB IV SCH (21:39)
[2018-06-09] MEDS: CODEINE SULF 30 MG TABLET PO SCH (21:40)
[2018-06-10] MEDS: HEPARIN SOD (PORCINE) 5,000 UNIT/ML 1 ML SYRINGE SUBCUT SCH ×3 (05:06→21:38)
[2018-06-10] MEDS: LEVALBUTEROL HCL NEB 1.25 MG/3 ML AMPUL NEB SCH ×3 (08:41→20:45)
[2018-06-10] MEDS: FLUTICASONE NASAL SPRAY 50 MCG/SPRY 120 SPRAY/16 GM NASL SCH ×2 (10:43→21:47)
[2018-06-10] MEDS: FAMOTIDINE 20 MG TABLET PO SCH ×2 (10:44→21:46)
[2018-06-10] MEDS: METFORMIN HCL 500 MG TABLET PO SCH ×2 (10:44→17:46)
[2018-06-10] MEDS: PREDNISONE 20 MG TABLET PO SCH ×2 (10:44→17:46)
[2018-06-10] MEDS: CARVEDILOL 3.125 MG TABLET PO SCH ×2 (10:44→21:43)
[2018-06-10] MEDS: DILTIAZEM HCL 240 MG CAPSULE.CR PO SCH ×2 (10:44→21:46)
[2018-06-10] MEDS: GUAIFENESIN 600 MG TABLET.SA PO SCH ×2 (10:44→21:43)
[2018-06-10] MEDS: INSULIN LISPRO 100 UNIT/ML 3 ML VIAL SUBCUT PRN ×2 (17:45→21:47)
[2018-06-10] MEDS: MONTELUKAST SODIUM 10 MG TABLET PO SCH (17:46)
--- NOTE | 2018-06-10 19:27 | PROGRESS NOTE E ---
Progress Note NAME: ADDIE STEWART : 1960 AGE: 57Y DATE: 06/10/2018 ROOM: 335 SUBJECTIVE: The patient is currently lying in bed. She states she feels much better today. Still feels like she needs more one day though. The patient denies any nausea, vomiting, diarrhea. No dizziness, chest pain. Still has some wheezing, but is resting better at night. The patient has been afebrile, blood pressure has been in good range and the patient did not voice any other concerns at this time. REVIEW OF SYSTEMS: The rest of the review of systems negative. MEDICATIONS: Have been reviewed. OBJECTIVE: GENERAL: The patient is a 57-year-old -[place] female who is awake, alert, and oriented to person, time, place, situation. She is verbal, conversational. She does not appear to be in any acute distress. VITAL SIGNS: Temperature is 97.9, pulse 71, respirations 18, blood pressure is 112/51, oxygen saturation is 96% on room air. SKIN: Warm and dry. No rash. She is not diaphoretic. HEENT: Pupils equal, round and reactive to light and accommodation. Conjunctivae are pink. There is no evidence of JVP. CARDIOVASCULAR: Heart is regular. There is no rub. CHEST: Symmetrical, unlabored with expiratory wheezes noted upper lung preciado but overall appears better in comparison to yesterday. ABDOMEN: Soft, nontender. EXTREMITIES: No clubbing, cyanosis, or edema. PSYCHIATRIC: Appropriate affect. DIAGNOSTICS: Lab values are as follows - Hematology obtained on 06/08/2018; WBC is 11.7, hemoglobin is 12.2, hematocrit is 36.6, platelet count is 340,000. Chemistry obtained on 06/08/2018; sodium is 145, potassium is 4.5, chloride is 106, carbon dioxide 27, BUN 14, creatinine 0.55, glucose 228, calcium is 9.6. IMPRESSION AND PLAN: 1. CHRONIC OBSTRUCTIVE PULMONARY DISEASE EXACERBATION. The patient does feel better in comparison to yesterday. Will continue steroids, nebulizers, but go ahead and transition to p.o. 2. HYPERTENSION. The patient's blood pressure has been in a descend range. Will continue current medication. 3. DIABETES MELLITUS TYPE 2. The patient is on a.c. and at bedtime Accu-Chek coverage. Will continue to follow. 4. ACUTE ON CHRONIC HYPOXEMIC RESPIRATORY FAILURE. The patient was requiring O2 on admission, overall much improved. CODE STATUS: The patient is a full code. DISPOSITION: Depending on the patient's symptomatology and diagnostic findings will reevaluate in the a.m. TIME SPENT: On this follow up, including assessment and plan, physical examination, patient education, review of records is 20 minutes. DICTATING PHYSICIAN: ALHAJI FINLEY NP [id number] PHY#: [id number] ID: [id number] JOB#: [id number] ACCT: [id number] cc: >
[2018-06-10] MEDS: CODEINE SULF 30 MG TABLET PO SCH (21:46)
[2018-06-10] MEDS ORDERED: LEVOFLOXACIN 750 MG TABLET PO SCH (22:00)
[2018-06-11] MEDS: HEPARIN SOD (PORCINE) 5,000 UNIT/ML 1 ML SYRINGE SUBCUT SCH ×2 (05:26→13:46)
[2018-06-11] MEDS: METFORMIN HCL 500 MG TABLET PO SCH ×2 (08:14→16:44)
[2018-06-11] MEDS: LEVALBUTEROL HCL NEB 1.25 MG/3 ML AMPUL NEB SCH ×2 (08:28→14:28)
[2018-06-11] MEDS: DILTIAZEM HCL 240 MG CAPSULE.CR PO SCH (09:31)
[2018-06-11] MEDS: FLUTICASONE NASAL SPRAY 50 MCG/SPRY 120 SPRAY/16 GM NASL SCH (09:31)
[2018-06-11] MEDS: CARVEDILOL 3.125 MG TABLET PO SCH (09:32)
[2018-06-11] MEDS: PREDNISONE 20 MG TABLET PO SCH (09:32)
[2018-06-11] MEDS: FAMOTIDINE 20 MG TABLET PO SCH (09:32)
[2018-06-11] MEDS: GUAIFENESIN 600 MG TABLET.SA PO SCH (09:32)
[2018-06-11] MEDS: INSULIN LISPRO 100 UNIT/ML 3 ML VIAL SUBCUT PRN ×2 (13:46→16:45)
[2018-06-11 16:23] VITALS: BP 125/68
--- NOTE | 2018-06-13 08:32 | DISCHARGE SUMMARY E ---
Discharge Summary NAME: ADDIE STEWART : 1960 AGE: 57Y ADMITTED: 06/07/2018 DISCHARGED: 06/11/2018 CODE STATUS: FULL CODE. PRIMARY CARE PROVIDER: DEEDEE Harley DISCHARGE DIAGNOSES: INCLUDES: 1. CHRONIC OBSTRUCTIVE PULMONARY DISEASE EXACERBATION. 2. ACUTE ON CHRONIC HYPOXEMIC RESPIRATORY FAILURE. 3. RECURRENT SINUSITIS DUE TO NASAL POLYPS. 4. HYPERTENSION. 5. DIABETES MELLITUS TYPE-2. DISCHARGE MEDICATIONS: Include: 1. Prednisone 60 mg taper. 2. Levaquin 750 mg p.o. q. hour of sleep; 5 tablets, 0 refills. 3. Mucinex XR 1200 mg p.o. 12 hours; 12 tablets, 0 refills. 4. Flonase 2 sprays q. 12 hours. 5. Singulair 10 mg p.o. q. hour of sleep. 6. Glucophage 500 mg p.o. b.i.d. 7. Xopenex 1.25 mg nebulizer t.i.d. p.r.n. 8. Atrovent 0.5 mg neb t.i.d. p.r.n. 9. Cardizem 240 mg p.o. q. 12 hours. 10. Coreg 3.125 mg p.o. 12 hours. 11. Symbicort HFA 2 puffs inhalation q. 12 hours. 12. Ventolin 2.5 mg nebulizers q. 8 hours p.r.n. 13. ProAir HFA 2 puffs inhalation q. 4 hours p.r.n. DIET: As tolerated. ACTIVITY: As tolerated. CONDITION: Good. DIAGNOSTICS: Lab values are as follows: Hematology obtained on 06/08/2018: WBCs are 11.7, hemoglobin is 12.2, hematocrit is 36.6, platelet count is 340,000. Venous blood gas obtained on 06/07/2018: PH is 7.38, PCO2 is 54.2, PO2 is 30.6. Chemistry obtained on 06/08/2018: Sodium is 145, potassium 4.5, chloride is 106, carbon dioxide 27, BUN 14, creatinine is 0.55, glucose 136, calcium is 9.6, magnesium is 1.9, AST 17, ALT is 19, Myesha-phos 127, CK 51, CKMB 0.52, troponin is 0.012. Total protein 7.4, albumin 4.3. Urinalysis obtained on 06/07/2018: Color: Yellow. Appearance: Slightly cloudy. PH is 5.0. Specific gravity is 1.013. Protein negative, glucose negative, ketones negative, occult blood negative, nitrite negative, bilirubin negative, urobilinogen is negative, leukocyte esterase is negative. WBC 1, RBC 1, casts 1, bacteria trace. Chest x-ray obtained on 06/07/2018 reveals no acute radiographic finding of the chest. PHYSICAL EXAMINATION: GENERAL: On examination, the patient is a well-developed, well-nourished, 57-year-old -[place] female who is awake, alert, and oriented to person, place, time, and situation. She is verbal, conversational, does not appear to be in any acute distress. VITAL SIGNS: Temperature is 98.2, pulse 93, respirations 16, blood pressure is 125/68, oxygen saturation is 95% on room air. SKIN: Warm and dry. No rash. She is not diaphoretic. HEENT: Pupils equal, round, and reactive to light and accommodation. Conjunctiva is pink. No evidence of JVP. CARDIOVASCULAR SYSTEM: Heart is regular. No murmur or rub. CHEST: Clear, symmetrical, unlabored. Slight wheezes, but relatively clear. ABDOMEN: Soft, nontender, nondistended. BACK: No CVA tenderness, sacral edema. EXTREMITIES: No clubbing, cyanosis, edema. PSYCHIATRIC: Appropriate affect, pleasant mood. HISTORY OF PRESENT ILLNESS: The patient is a 57-year-old -[place] female with a past medical history of nasal polyps and chronic obstructive pulmonary disease. The patient presented to the Emergency Department with chief complaint of shortness of breath and wheezing. According to the patient, she had 12 hours of severe respiratory distress following exposure to cooking smoke. In the emergency department the patient was found to have tachypnea with oxygen saturation of 84% on room air. The patient was paced on a continuous neb and placed on BiPAP. The patient received stress dosed steroids as well as magnesium. The patient admits to rhinorrhea. She denies any chest pain, sore throat, nausea, vomiting, diarrhea, or fever. The patient denies any recent antibiotic use and has been referred to the hospital for admission and management. HOSPITAL COURSE: The patient was admitted to the [facility]. The patient was started on steroids, a scheduled and p.r.n. nebulizer, as well as supplemental O2. The patient was weaned and was also started on her antihistamines and Flonase and so forth. The patient made gradual improvements of symptoms and the patient was resumed on all of her home medications as well. The patient was able to ambulate without issue without a drop in her oxygen level as it was able to stay greater than 93% and the patient feels ready for discharge. DISCHARGE PLANNING: The patient is advised to follow up with a primary care provider within 1-2 weeks for hospital followup. Time spent on this discharge including assessment, plan, physical examination, patient education, review of records is 25 minutes. DICTATING PHYSICIAN: ALHAJI FINLEY NP [id number] PHY#: [id number] ID: [id number] JOB#: [id number] ACCT: [id number] cc:Alfred MTZ NP > MTDD
== END 2018-06-11 17:34 | disposition home or self-care (01) | DRG 190 ==
LOC: ER 17:55 → EH 21:28 → 3S 23:33
PROVIDERS: ADMIT Internal Medicine; ATTEND Internal Medicine
PROC: 5A09457 Assistance with Respiratory Ventilation, 24-96 Consecutive Hours, Continuous Positive Airway Pressure (ICD-10-PCS; principal; 2018-06-07)
PROC: 3E0F73Z Introduction of Anti-inflammatory into Respiratory Tract, Via Natural or Artificial Opening (ICD-10-PCS; 2018-06-07)
DX: J44.1 Chronic obstructive pulmonary disease with (acute) exacerbation (principal); J96.01 Acute respiratory failure with hypoxia; I10 Essential (primary) hypertension; E11.9 Type 2 diabetes mellitus without complications; J33.9 Nasal polyp, unspecified; K21.9 Gastro-esophageal reflux disease without esophagitis; M19.90 Unspecified osteoarthritis, unspecified site; J32.9 Chronic sinusitis, unspecified; Z88.8 Allergy status to other drugs, medicaments and biological substances; Z79.899 Other long term (current) drug therapy; Z87.891 Personal history of nicotine dependence; Z83.6 Family history of other diseases of the respiratory system; Z83.3 Family history of diabetes mellitus; Z82.49 Family history of ischemic heart disease and other diseases of the circulatory system
CPT/HCPCS: 36415; 71045; 80048; 80053; 81001; 82550; 82553; 82803; 82962; 83605; 83735; 84484; 85025; 93005; 93010; 94640; 94660; 94667; 94668; 94799; 96365; 96375; 99291; J1644; J1815; J1956; J2930; J3475; J3490; J7512; J7620

== ENCOUNTER 2018-07-01 13:10 | Observation (INO) | payer SELFPAY ==
[2018-07-01] MEDS ORDERED: IPRATROPIUM/ALBUTEROL 0.5-2.5 MG/3 ML AMPUL NEB ONE ×3 (13:36→15:41)
--- NOTE | 2018-07-01 13:37 | ER Document Report ---
ED Medical Screen (RME) - General Chief Complaint: Respiratory Distress Stated Complaint: BREATHING DIFFICULTY Time Seen by Provider: 07/01/18 13:33 Notes: 57-year-old female patient history COPD last admitted here about 1 month ago. Few days history now of yellow nasal discharge, cough congestion with clear sputum. She states that she has been using her nebulizer "way too much". She does not want to get as sick as she was on her previous 2 admissions last month. I have greeted and performed a rapid initial assessment of this patient. A comprehensive ED assessment and evaluation of the patient, analysis of test results and completion of the medical decision making process will be conducted by additional ED providers. TRAVEL OUTSIDE OF THE [place] IN LAST 30 DAYS: No - Related Data Allergies/Adverse Reactions: benzonatate [From Tessalon Perles] Allergy (Verified 06/07/18 18:20) RCING HEARTBEART NSAIDS (Non-Steroidal Anti-Inflamma Allergy (Verified 06/07/18 18:20) RACING HEARTBEAT Past Medical History - Past Medical History Cardiac Medical History: Reports: Hx Hypertension Pulmonary Medical History: Reports: Hx Asthma, Hx Bronchitis, Hx COPD, Hx Pneumonia Denies: Hx Intubation Endocrine Medical History: Reports: Hx Diabetes Mellitus Type 2 Renal/ Medical History: Denies: Hx Peritoneal Dialysis GI Medical History: Denies: Hx Gastroesophageal Reflux Disease Musculoskeltal Medical History: Reports Hx Arthritis Psychiatric Medical History: Denies: Hx Depression - Immunizations Hx Diphtheria, Pertussis, Tetanus Vaccination: Yes History of Influenza Vaccine for 04/2017 - 09/2017 Season: Yes Influenza Administration Date for 04/2017 - 09/2017 Season: 04/12/17 Physical Exam - Vital signs Vitals: Temp Pulse Resp BP Pulse Ox 98.0 F 103 H 22 H 140/54 H 93 07/01/18 13:18 07/01/18 13:18 07/01/18 13:18 07/01/18 13:18 07/01/18 13:18 Course - Vital Signs Vital signs: Temp Pulse Resp BP Pulse Ox 98.0 F 103 H 22 H 140/54 H 93 07/01/18 13:18 07/01/18 13:18 07/01/18 13:18 07/01/18 13:18 07/01/18 13:18 Doctor's Discharge - Discharge Referrals: GILBERT,STORMY, BEAD MACHINE OPERATOR-C [Primary Care Provider] - Follow up as needed
--- NOTE | 2018-07-01 14:13 | RADIOLOGY REPORT (SQ) ---
EXAM DESCRIPTION: CHEST SINGLE VIEW COMPLETED DATE/TIME: 07/01/2018 2:03 pm REASON FOR STUDY: COPD exacerbation COMPARISON: 06/07/2018. EXAM PARAMETERS: NUMBER OF VIEWS: One view. TECHNIQUE: Single frontal radiographic view of the chest acquired. RADIATION DOSE: NA LIMITATIONS: None. FINDINGS: LUNGS AND PLEURA: No opacities, masses or pneumothorax. No pleural effusion. MEDIASTINUM AND HILAR STRUCTURES: No masses. Contour normal. HEART AND VASCULAR STRUCTURES: Heart normal in size. Normal vasculature. BONES: No acute findings. HARDWARE: None in the chest. OTHER: No other significant finding. IMPRESSION: NO ACUTE RADIOGRAPHIC FINDING IN THE CHEST. TECHNICAL DOCUMENTATION: JOB ID: [id number] [employer]™- All Rights Reserved Reading location - IP/workstation name: [email or web address]
[2018-07-01 14:37] LABS: ABSOLUTE BASOPHILS # (AUTO) 0.1 10^3/uL (0.0-0.2); ABSOLUTE EOSINOPHILS # (AUTO) 0.8 10^3/uL (0.0-0.6); ABSOLUTE LYMPHOCYTES (AUTO) 2.1 10^3/uL (0.5-4.7); ABSOLUTE MONOCYTES (AUTO) 0.9 10^3/uL (0.1-1.4); ABSOLUTE NEUT (AUTO) 4.8 10^3/uL (1.7-8.2); BASOPHILS % (AUTO) 1.2 % (0-2); EOSINOPHILS % (AUTO) 9.1 % (0-6); HEMATOCRIT 37.9 % (36.0-47.0); HEMOGLOBIN 12.8 g/dL (12.0-15.5); LYMPHOCYTES % (AUTO) 24.4 % (13-45); MEAN CORPUSCULAR HEMOGLOBIN 26.3 pg (27.0-33.4); MEAN CORPUSCULAR HGB CONC 33.8 g/dL (32.0-36.0); MEAN CORPUSCULAR VOLUME 78 fl (80-97); MONOCYTES % (AUTO) 10.7 % (3-13); PLATELET COUNT 325 10^3/uL (150-450); RED BLOOD COUNT 4.88 10^6/uL (3.72-5.28); RED CELL DISTRIBUTION WIDTH 14.7 % (11.5-14.0); SEGMENTED NEUTROPHILS % (AUTO) 54.6 % (42-78); TOTAL CELLS COUNTED % (AUTO) 100 %; WHITE BLOOD COUNT 8.8 10^3/uL (4.0-10.5)
[2018-07-01 14:40] LABS: APPEARANCE,URINE CLEAR; BILIRUBIN,URINE NEGATIVE (NEGATIVE); COLOR,URINE YELLOW; GLUCOSE, URINE NEGATIVE (NEGATIVE); KETONES,URINE NEGATIVE (NEGATIVE); LEUKOCYTE ESTERASE,URINE NEGATIVE (NEGATIVE); NITRITE,URINE NEGATIVE (NEGATIVE); PROTEIN,URINE NEGATIVE (NEGATIVE); URINE SPECIFIC GRAVITY 1.013; UROBILINOGEN,URINE NEGATIVE mg/dL (<2.0)
[2018-07-01] MEDS ORDERED: NORMAL SALINE 500 ML IV ONE (14:45)
--- NOTE | 2018-07-01 14:52 | ER Document Report ---
ED General - General Chief Complaint: Respiratory Distress Stated Complaint: BREATHING DIFFICULTY Time Seen by Provider: 07/01/18 13:33 Mode of Arrival: Ambulatory Information source: Patient Notes: 57-year-old female presents emergency department with complaints of yellow nasal discharge, cough with clear sputum production, chills. Patient states that she has a history of COPD and is admitted for COPD exacerbation a month ago. She has been using her nebulizer at home with minimal relief. Patient denies chest pain, nausea, vomiting diaporesis. Patient is not on home oxygen. Denies jodi schilling. TRAVEL OUTSIDE OF THE [place] IN LAST 30 DAYS: No - HPI Onset: Other - 3 days Onset/Duration: Intermittent, Persistent Quality of pain: No pain Severity: None Pain Level: Denies Associated symptoms: Chills, Productive cough, Rhinnorhea Exacerbated by: Denies Relieved by: Denies Similar symptoms previously: Yes Recently seen / treated by doctor: Yes - Related Data Allergies/Adverse Reactions: benzonatate [From Tessalon Perles] Allergy (Verified 07/01/18 13:39) RCING HEARTBEART NSAIDS (Non-Steroidal Anti-Inflamma Allergy (Verified 07/01/18 13:39) RACING HEARTBEAT Past Medical History - General Information source: Patient - Social History Smoking Status: Former Smoker Frequency of alcohol use: None Drug Abuse: None Family History: COPD, DM, Hypertension Patient has suicidal ideation: No Patient has homicidal ideation: No - Past Medical History Cardiac Medical History: Reports: Hx Hypertension Pulmonary Medical History: Reports: Hx Asthma, Hx Bronchitis, Hx COPD, Hx Pneumonia Denies: Hx Intubation Endocrine Medical History: Reports: Hx Diabetes Mellitus Type 2 Renal/ Medical History: Denies: Hx Peritoneal Dialysis GI Medical History: Denies: Hx Gastroesophageal Reflux Disease Musculoskeletal Medical History: Reports Hx Arthritis Psychiatric Medical History: Denies: Hx Depression - Immunizations Hx Diphtheria, Pertussis, Tetanus Vaccination: Yes Review of Systems - Review of Systems Constitutional: Chills EENT: Nose congestion Cardiovascular: No symptoms reported Respiratory: Cough, Wheezing Gastrointestinal: No symptoms reported Genitourinary: No symptoms reported Musculoskeletal: No symptoms reported Skin: No symptoms reported Hematologic/Lymphatic: No symptoms reported Neurological/Psychological: No symptoms reported -: Yes All other systems reviewed and negative Physical Exam - Vital signs Vitals: Temp Pulse Resp BP Pulse Ox 98.0 F 103 H 22 H 140/54 H 93 07/01/18 13:18 07/01/18 13:18 07/01/18 13:18 07/01/18 13:18 07/01/18 13:18 - Notes Notes: PHYSICAL EXAMINATION: GENERAL: Well-appearing, well-nourished and in no acute distress. HEAD: Atraumatic, normocephalic. EYES: Pupils equal round and reactive to light, extraocular movements intact, conjunctiva are normal. ENT: Nares patent, oropharynx clear without exudates. Moist mucous membranes. NECK: Normal range of motion, supple without lymphadenopathy LUNGS: Diffuse wheezing. No respiratory distress. HEART: Tachycardia. ABDOMEN: Soft, nontender, nondistended abdomen. No guarding, no rebound. No masses appreciated. Female : deferred Musculoskeletal: Normal range of motion, no pitting or edema. No cyanosis. NEUROLOGICAL: Cranial nerves grossly intact. Normal speech, normal gait. Normal sensory, motor exams PSYCH: Normal mood, normal affect. SKIN: Warm, Dry, normal turgor, no rashes or lesions noted. Course - Re-evaluation Re-evalutation: 07/01/18 17:10 Labs and imaging obtained. Chest x-ray does not show any acute process. White blood cell count is normal. Patient received 3 DuoNeb treatments and Solu- Medrol in the emergency department. Patient states that she is not feeling any better. Patient's concerned that her COPD will worsen if she goes home. I s poke with the hospitalist about admitting the patient. Dr. Downing is agreeable with admission. The patient is currently stable. - Vital Signs Vital signs: Temp Pulse Resp BP Pulse Ox 98.0 F 103 H 19 137/77 H 99 07/01/18 13:18 07/01/18 13:18 07/01/18 16:01 07/01/18 16:01 07/01/18 16:01 - Laboratory Result Diagrams: 07/01/18 14:10 07/01/18 14:10 Laboratory results interpreted by me: 07/01/18 07/01/18 07/01/18 14:10 14:10 16:09 MCV 78 L MCH 26.3 L RDW 14.7 H Eosinophils % 9.1 H Absolute Eosinophils 0.8 H Carbonic Acid 1.43 H ABG pCO2 47.6 H ABG pO2 68.7 L ABG HCO3 27.2 H ABG Total CO2 28.7 H ABG O2 Saturation 93.2 L Chloride 108 H Creatinine 0.50 L Glucose 126 H Discharge - Discharge Clinical Impression: COPD exacerbation Condition: Stable Disposition: ADMITTED OBSERVATION Admitting Provider: Hospitalist Unit Admitted: Telemetry Referrals: BONIFACIO MELENDEZ FNP-C [Primary Care Provider] - Follow up as needed
[2018-07-01 15:02] LABS: ALANINE AMINOTRANSFERASE 18 U/L (9-52); ALBUMIN 4.3 g/dL (3.5-5.0); ALKALINE PHOSPHATASE 107 U/L (38-126); ANION GAP 8 (5-19); ASPARTATE AMINO TRANSFERASE 20 U/L (14-36); BILIRUBIN,DIRECT 0.2 mg/dL (0.0-0.4); BILIRUBIN,TOTAL 0.4 mg/dL (0.2-1.3); BLOOD UREA NITROGEN 11 mg/dL (7-20); CALCIUM 9.8 mg/dL (8.4-10.2); CARBON DIOXIDE 26 mmol/L (22-30); CHLORIDE 108 mmol/L (98-107); GLUCOSE 126 mg/dL (75-110); SODIUM 142.3 mmol/L (137-145); TOTAL PROTEIN 7.2 g/dL (6.3-8.2)
[2018-07-01] MEDS ORDERED: METHYLPREDNISOLONE INJ 125 MG/2 ML SDV IV ONE (15:41)
[2018-07-01 16:28] LABS: ARTERIAL BLOOD BASE EXCESS 1.4 mmol/L; ARTERIAL BLOOD FIO2 ROOM AIR; ARTERIAL BLOOD H2CO3 1.43 mmol/L (1.05-1.35); ARTERIAL BLOOD HCO3 27.2 mmol/L (20-24); ARTERIAL BLOOD O2 SATURATION 93.2 % (94-98); ARTERIAL BLOOD PCO2 47.6 mmHg (35-45); ARTERIAL BLOOD PH 7.38 (7.35-7.45); ARTERIAL BLOOD PO2 68.7 mmHg (80-100); ARTERIAL BLOOD TOTAL CO2 28.7 mmol/L (21-25)
[2018-07-01 16:57] LABS: A TYPE INFLUENZA AG NEGATIVE (NEGATIVE); B INFLUENZA AG NEGATIVE (NEGATIVE)
[2018-07-01] MEDS ORDERED: ALBUTEROL SULFATE 0.083% NEB 2.5 MG/3 ML AMPUL NEB PRN (17:57)
--- NOTE | 2018-07-01 18:13 | PDOC H&P ---
History of Present Illness Admission Date/PCP: 07/01/18 17:28 JENNIFER MEYER Patient complains of: SOB, wheezing History of Present Illness: ADDIE STEWART is a 57 year old female with COPD not on home O2, HTN, DM 2 who presented with SOB. Patient complains of recent nasal congestion 5 days ago. She started having progressive SOB associated with wheezing in the past 3 days along with minimally productive cough. She complains of subjective fever. Denies chest pain. She had significant wheezing upon presentation and was given IV steroids and 2 breathing treatments. She says she slightly felt better after the treatments. She continues to have wheezing upon encounter. She is saturating at 99% on room air. Past Medical History Cardiac Medical History: Reports: Hypertension Pulmonary Medical History: Reports: Asthma, Bronchitis, Chronic Obstructive Pulmonary Disease (COPD), Pneumonia Denies: Intubation Endocrine Medical History: Reports: Diabetes Mellitus Type 2 GI Medical History: Denies: Gastroesophageal Reflux Disease Musculoskeltal Medical History: Reports: Arthritis Psychiatric Medical History: Denies: Depression Social History Smoking Status: Former Smoker Frequency of Alcohol Use: None Hx Recreational Drug Use: No Drugs: None Hx Prescription Drug Abuse: No Family History Family History: COPD, DM, Hypertension Parental Family History Reviewed: Yes - no premature CAD Children Family History Reviewed: No Sibling(s) Family History Reviewed.: No Medication/Allergy Home Medications: Albuterol Sulfate [Proair HFA Inhalation Aerosol 8.5 gm MDI] 2 puff IH Q4HP PRN 07/01/18 Albuterol Sulfate [Ventolin 0.083% Neb 2.5 mg/3 mL Ampul] 2.5 mg NEB RTQ8HP PRN 07/01/18 Budesonide/Formoterol Fumarate [Symbicort HFA 160-4.5 mcg Inhaler 6 gm] 2 puff IH Q12 07/01/18 Carvedilol [Coreg 3.125 mg Tablet] 3.125 mg PO Q12 07/01/18 Diltiazem HCl [Cardizem LA] 240 mg PO Q12 07/01/18 Ipratropium [place] [Atrovent 0.02% Neb 0.5 mg/2.5 ml Ampul] 0.5 mg NEB RTTID 07/01/18 Levalbuterol HCl [Xopenex Neb 1.25 mg/3 ml Ampul] 1.25 mg NEB RTTID 07/01/18 Metformin HCl [Glucophage 500 mg Tablet] 500 mg PO BID 07/01/18 Montelukast Sodium [Singulair 10 mg Tablet] 10 mg PO QPM 07/01/18 Allergies/Adverse Reactions: benzonatate [From Wes Blanco] Allergy (Verified 07/01/18 13:39) RCING HEARTBEART NSAIDS (Non-Steroidal Anti-Inflamma Allergy (Verified 07/01/18 13:39) RACING HEARTBEAT Review of Systems All systems: reviewed and no additional remarkable complaints except as stated - as mentioned in HPI Physical Exam Vital Signs: Temp Pulse Resp BP Pulse Ox 98.0 F 103 H 19 133/73 H 95 07/01/18 13:18 07/01/18 13:18 07/01/18 18:01 07/01/18 18:01 07/01/18 18:06 Intake & Output 06/30/18 07/01/18 07/02/18 06:59 06:59 06:59 Intake Total 500 Balance 500 Weight 162 lb 4.163 oz General appearance: PRESENT: no acute distress, well-developed, well-nourished Head exam: PRESENT: atraumatic, normocephalic Eye exam: PRESENT: conjunctiva pink, EOMI, PERRLA. ABSENT: scleral icterus Ear exam: PRESENT: normal external ear exam Mouth exam: PRESENT: moist, tongue midline Neck exam: ABSENT: carotid bruit, JVD, lymphadenopathy, thyromegaly Respiratory exam: PRESENT: accessory muscle use, rhonchi, wheezes. ABSENT: crackles Cardiovascular exam: PRESENT: RRR. ABSENT: diastolic murmur, rubs, systolic murmur Pulses: PRESENT: normal dorsalis pedis pul GI/Abdominal exam: PRESENT: normal bowel sounds, soft. ABSENT: distended, guarding, mass, organolmegaly, rebound, tenderness Rectal exam: PRESENT: deferred Neurological exam: PRESENT: alert, awake, oriented to person, oriented to place, oriented to time, oriented to situation, CN II-XII grossly intact. ABSENT: motor sensory deficit Results Laboratory Results: 07/01/18 14:10 07/01/18 14:10 07/01/18 07/01/18 07/01/18 14:10 14:10 14:10 WBC 8.8 RBC 4.88 Hgb 12.8 Hct 37.9 MCV 78 L MCH 26.3 L MCHC 33.8 RDW 14.7 H Plt Count 325 Seg Neutrophils % 54.6 Lymphocytes % 24.4 Monocytes % 10.7 Eosinophils % 9.1 H Basophils % 1.2 Absolute Neutrophils 4.8 Absolute Lymphocytes 2.1 Absolute Monocytes 0.9 Absolute Eosinophils 0.8 H Absolute Basophils 0.1 Carbonic Acid HCO3/H2CO3 Ratio ABG pH ABG pCO2 ABG pO2 ABG HCO3 ABG O2 Saturation ABG Base Excess FiO2 Sodium 142.3 Potassium 4.0 Chloride 108 H Carbon Dioxide 26 Anion Gap 8 BUN 11 Creatinine 0.50 L Est GFR ( Amer) > 60 Est GFR (Non-Af Amer) > 60 Glucose 126 H Calcium 9.8 Total Bilirubin 0.4 AST 20 ALT 18 Alkaline Phosphatase 107 Total Protein 7.2 Albumin 4.3 Urine Color YELLOW Urine Appearance CLEAR Urine pH 5.0 Ur Specific [place] 1.013 Urine Protein NEGATIVE Urine Glucose (UA) NEGATIVE Urine Ketones NEGATIVE Urine Blood NEGATIVE Urine Nitrite NEGATIVE Ur Leukocyte Esterase NEGATIVE Urine WBC (Auto) 1 Urine RBC (Auto) 0 07/01/18 16:09 WBC RBC Hgb Hct MCV MCH MCHC RDW Plt Count Seg Neutrophils % Lymphocytes % Monocytes % Eosinophils % Basophils % Absolute Neutrophils Absolute Lymphocytes Absolute Monocytes Absolute Eosinophils Absolute Basophils Carbonic Acid 1.43 H HCO3/H2CO3 Ratio 19:1 ABG pH 7.38 ABG pCO2 47.6 H ABG pO2 68.7 L ABG HCO3 27.2 H ABG O2 Saturation 93.2 L ABG Base Excess 1.4 FiO2 ROOM AIR Sodium Potassium Chloride Carbon Dioxide Anion Gap BUN Creatinine Est GFR ( Amer) Est GFR (Non-Af Amer) Glucose Calcium Total Bilirubin AST ALT Alkaline Phosphatase Total Protein Albumin Urine Color Urine Appearance Urine pH Ur Specific [place] Urine Protein Urine Glucose (UA) Urine Ketones Urine Blood Urine Nitrite Ur Leukocyte Esterase Urine WBC (Auto) Urine RBC (Auto) 07/01/18 14:10 Troponin I < 0.012 Impressions: Chest X-Ray 07/01/18 13:36 IMPRESSION: NO ACUTE RADIOGRAPHIC FINDING IN THE CHEST. Assessment & Plan - Diagnosis (1) COPD exacerbation Is this a current diagnosis for this admission?: Yes Plan: Will continue IV steroids, scheduled breathing treatments. Will also start azithromycin. - Time Time Spent: 30 to 50 Minutes
[2018-07-01] MEDS ORDERED: GLUCAGON,HUMAN RECOMB 1 MG INJ IM PRN (18:14)
[2018-07-01] MEDS ORDERED: DEXTROSE 50%-WATER 25 GM/50 ML DISP.SYRIN IV PRN ×2 (18:14)
[2018-07-01] MEDS ORDERED: DEXTROSE 40% GEL 15 GM TUBE PO PRN ×2 (18:14)
[2018-07-01] MEDS: AZITHROMYCIN 250 MG TABLET PO SCH (19:25)
[2018-07-01] MEDS: IPRATROPIUM/ALBUTEROL 0.5-2.5 MG/3 ML AMPUL NEB SCH ×2 (20:26→23:58)
[2018-07-01] MEDS: CARVEDILOL 3.125 MG TABLET PO SCH (21:51)
[2018-07-01] MEDS: DILTIAZEM HCL 240 MG CAPSULE.CR PO SCH (21:51)
[2018-07-01] MEDS: INSULIN LISPRO 100 UNIT/ML 3 ML VIAL SUBCUT PRN (21:53)
[2018-07-01] MEDS: METHYLPREDNISOLONE INJ 40 MG/1 ML SDV IV SCH (21:54)
[2018-07-01] MEDS: HEPARIN SOD (PORCINE) 5,000 UNIT/ML 1 ML SYRINGE SUBCUT SCH (21:59)
[2018-07-01] MEDS ORDERED: DILTIAZEM HCL 240 MG PO SCH (22:00)
[2018-07-02] MEDS: IPRATROPIUM/ALBUTEROL 0.5-2.5 MG/3 ML AMPUL NEB SCH ×6 (04:20→23:33)
[2018-07-02] MEDS: METHYLPREDNISOLONE INJ 40 MG/1 ML SDV IV SCH ×3 (05:22→21:56)
[2018-07-02] MEDS: INSULIN LISPRO 100 UNIT/ML 3 ML VIAL SUBCUT PRN ×4 (08:56→21:55)
[2018-07-02] MEDS: HEPARIN SOD (PORCINE) 5,000 UNIT/ML 1 ML SYRINGE SUBCUT SCH ×3 (09:00→21:56)
[2018-07-02] MEDS: CARVEDILOL 3.125 MG TABLET PO SCH ×2 (09:01→21:55)
[2018-07-02] MEDS: DILTIAZEM HCL 240 MG CAPSULE.CR PO SCH ×2 (09:07→21:55)
--- NOTE | 2018-07-02 15:23 | PDOC PROGRESS REPORT ---
Subjective Progress Note for:: 07/02/18 Subjective:: ADDIE STEWART is a 57 year old female with COPD not on home O2, HTN, DM 2 who presented with SOB and wheezing. She was admitted for COPD exacerbation. Overnight, she had transient desaturation to 89% and was placed on 2 L nasal cannula. Upon encounter this morning, patient says she continues to feel better. She says that her shortness of breath has significantly improved overnight but she does not feel like she is at her baseline yet. Upon examination, she has mild wheezing in the bases albeit significantly improved compared to yesterday. Reason For Visit: COPD EXACERBATION Physical Exam Vital Signs: Temp Pulse Resp BP Pulse Ox 97.5 F 96 18 134/71 H 92 07/02/18 11:25 07/02/18 12:37 07/02/18 12:37 07/02/18 11:25 07/02/18 12:37 Intake & Output 07/01/18 07/02/18 07/03/18 06:59 06:59 06:59 Intake Total 500 670 Balance 500 670 Weight 363 lb 12.203 oz General appearance: PRESENT: no acute distress, well-developed, well-nourished Head exam: PRESENT: atraumatic, normocephalic Eye exam: PRESENT: conjunctiva pink, EOMI, PERRLA. ABSENT: scleral icterus Ear exam: PRESENT: normal external ear exam Neck exam: ABSENT: carotid bruit, JVD, lymphadenopathy, thyromegaly Respiratory exam: PRESENT: wheezes - bases, significantly improved from yesterday. ABSENT: rales, rhonchi Cardiovascular exam: PRESENT: RRR. ABSENT: diastolic murmur, rubs, systolic murmur Pulses: PRESENT: normal dorsalis pedis pul GI/Abdominal exam: PRESENT: normal bowel sounds, soft. ABSENT: distended, guarding, mass, organolmegaly, rebound, tenderness Rectal exam: PRESENT: deferred Neurological exam: PRESENT: alert, awake, oriented to person, oriented to place, oriented to time, oriented to situation, CN II-XII grossly intact. ABSENT: motor sensory deficit Results Laboratory Results: 07/01/18 14:10 07/01/18 14:10 07/01/18 16:09 Carbonic Acid 1.43 H HCO3/H2CO3 Ratio 19:1 ABG pH 7.38 ABG pCO2 47.6 H ABG pO2 68.7 L ABG HCO3 27.2 H ABG O2 Saturation 93.2 L ABG Base Excess 1.4 FiO2 ROOM AIR 07/01/18 14:10 Troponin I < 0.012 Impressions: Chest X-Ray 07/01/18 13:36 IMPRESSION: NO ACUTE RADIOGRAPHIC FINDING IN THE CHEST. Assessment & Plan - Diagnosis (1) COPD exacerbation Is this a current diagnosis for this admission?: Yes Plan: Improving. Switch IV steroids to prednisone. Continue scheduled breathing t reatments and azithromycin. (2) Hypertension Is this a current diagnosis for this admission?: Yes Plan: Controlled. Continue Coreg and Cardizem PO. - Time Time Spent with patient: 15-24 minutes
[2018-07-02] MEDS: PREDNISONE 20 MG TABLET PO SCH (17:13)
[2018-07-02] MEDS: AZITHROMYCIN 250 MG TABLET PO SCH (17:14)
[2018-07-03] MEDS: IPRATROPIUM/ALBUTEROL 0.5-2.5 MG/3 ML AMPUL NEB SCH ×5 (04:23→19:52)
[2018-07-03] MEDS: PREDNISONE 20 MG TABLET PO SCH (11:40)
[2018-07-03] MEDS: CARVEDILOL 3.125 MG TABLET PO SCH (11:40)
[2018-07-03] MEDS: HEPARIN SOD (PORCINE) 5,000 UNIT/ML 1 ML SYRINGE SUBCUT SCH ×2 (11:40→21:24)
[2018-07-03] MEDS: DILTIAZEM HCL 240 MG CAPSULE.CR PO SCH ×2 (11:44→21:23)
[2018-07-03] MEDS: INSULIN LISPRO 100 UNIT/ML 3 ML VIAL SUBCUT PRN ×3 (11:44→21:55)
--- NOTE | 2018-07-03 17:21 | PDOC PROGRESS REPORT ---
Subjective Progress Note for:: 07/03/18 Subjective:: ADDIE STEWART is a 57 year old female with COPD not on home O2, HTN, DM 2 who presented with SOB and wheezing. She was admitted for COPD exacerbation. Patient says she woke up at 2 AM as she was short of breath and had recurrence of wheezing. This was relieved with breathing treatments. Upon examination, she says she had improvement in her SOB but is not at her baseline yet. Reason For Visit: COPD EXACERBATION Physical Exam Vital Signs: Temp Pulse Resp BP Pulse Ox 98.0 F 68 16 143/84 H 96 07/03/18 16:46 07/03/18 16:46 07/03/18 16:46 07/03/18 16:46 07/03/18 16:46 Intake & Output 07/02/18 07/03/18 07/04/18 06:59 06:59 06:59 Intake Total 500 1493 502 Balance 500 1493 502 Weight 363 lb 12.203 oz 359 lb 9.183 oz General appearance: PRESENT: no acute distress, well-developed, well-nourished Head exam: PRESENT: atraumatic, normocephalic Eye exam: PRESENT: conjunctiva pink, EOMI, PERRLA. ABSENT: scleral icterus Ear exam: PRESENT: normal external ear exam Mouth exam: PRESENT: moist, tongue midline Neck exam: ABSENT: carotid bruit, JVD, lymphadenopathy, thyromegaly Respiratory exam: PRESENT: wheezes - occasional wheezes about the same from yest erday. ABSENT: rales, rhonchi Cardiovascular exam: PRESENT: RRR. ABSENT: diastolic murmur, rubs, systolic murmur Pulses: PRESENT: normal dorsalis pedis pul GI/Abdominal exam: PRESENT: normal bowel sounds, soft. ABSENT: distended, guarding, mass, organolmegaly, rebound, tenderness Rectal exam: PRESENT: deferred Neurological exam: PRESENT: alert, awake, oriented to person, oriented to place, oriented to time, oriented to situation, CN II-XII grossly intact. ABSENT: mot or sensory deficit Results Laboratory Results: 07/01/18 14:10 07/01/18 14:10 07/01/18 14:10 Troponin I < 0.012 Impressions: Chest X-Ray 07/01/18 13:36 IMPRESSION: NO ACUTE RADIOGRAPHIC FINDING IN THE CHEST. Assessment & Plan - Diagnosis (1) COPD exacerbation Is this a current diagnosis for this admission?: Yes Plan: Improving. Will switch back prednisone to IV steroids. Continue scheduled breathing treatments and azithromycin. (2) Hypertension Is this a current diagnosis for this admission?: Yes Plan: Controlled. Continue Cardizem PO. Hold Coreg for now. - Time Time Spent with patient: 15-24 minutes
[2018-07-03] MEDS: AZITHROMYCIN 250 MG TABLET PO SCH (18:06)
[2018-07-03] MEDS: METHYLPREDNISOLONE INJ 40 MG/1 ML SDV IV SCH (21:23)
[2018-07-04] MEDS: IPRATROPIUM/ALBUTEROL 0.5-2.5 MG/3 ML AMPUL NEB SCH ×4 (00:12→11:57)
[2018-07-04] MEDS: METHYLPREDNISOLONE INJ 40 MG/1 ML SDV IV SCH (05:11)
[2018-07-04] MEDS: INSULIN LISPRO 100 UNIT/ML 3 ML VIAL SUBCUT PRN ×2 (08:44→11:50)
[2018-07-04] MEDS: DILTIAZEM HCL 240 MG CAPSULE.CR PO SCH (09:31)
[2018-07-04] MEDS: HEPARIN SOD (PORCINE) 5,000 UNIT/ML 1 ML SYRINGE SUBCUT SCH (09:39)
[2018-07-04] MEDS ORDERED: INSULIN LISPRO 100 UNIT/ML 3 ML VIAL SUBCUT ONE (12:20)
--- NOTE | 2018-07-04 14:57 | PDOC DISCHARGE SUMMARY ---
General - Admit/Disc Date/PCP Admission Date/Primary Care Provider: 07/01/18 17:28 JENNIFER MEYER Discharge Date: 07/04/18 - Discharge Diagnosis (1) COPD exacerbation Is this a current diagnosis for this admission?: Yes (2) Hypertension Is this a current diagnosis for this admission?: Yes - Additional Information Resuscitation Status: Full Code Prescriptions: Fluticasone/Salmeterol [Advair 250-50 Diskus 14 Dose/Diskus] 2 inh IH Q12H #1 inhaler Ipratropium/Albuterol Sulfate [Duoneb 3 ml Ampul] 3 ml NEB Q6HP PRN #20 vial.neb PRN Reason: Prednisone [Deltasone 20 mg Tablet] 40 mg PO BID 5 Days #10 tablet Home Medications: Albuterol Sulfate [Proair HFA Inhalation Aerosol 8.5 gm MDI] 2 puff IH Q4HP PRN 07/01/18 Carvedilol [Coreg 3.125 mg Tablet] 3.125 mg PO Q12 07/01/18 Diltiazem HCl [Cardizem LA] 240 mg PO Q12 07/01/18 Metformin HCl [Glucophage 500 mg Tablet] 500 mg PO BID 07/01/18 Montelukast Sodium [Singulair 10 mg Tablet] 10 mg PO QPM 07/01/18 Fluticasone/Salmeterol [Advair 250-50 Diskus 14 Dose/Diskus] 2 inh IH Q12H #1 inhaler 07/04/18 Ipratropium/Albuterol Sulfate [Duoneb 3 ml Ampul] 3 ml NEB Q6HP PRN #20 vial.neb 07/04/18 Prednisone [Deltasone 20 mg Tablet] 40 mg PO BID 5 Days #10 tablet 07/04/18 History of Present Illness History of Present Illness: ADDIE STEWART is a 57 year old female with COPD not on home O2, HTN, DM 2 who presented with SOB. Patient complains of recent nasal congestion 5 days ago. She started having progressive SOB associated with wheezing in the past 3 days along with minimally productive cough. She complains of subjective fever. Denies chest pain. She had significant wheezing upon presentation and was given IV steroids and 2 breathing treatments. She says she slightly felt better after the treatments. She continues to have wheezing upon encounter. She is saturating at 99% on room air. Hospital Course Hospital Course: ADDIE STEWART is a 57 year old female with COPD not on home O2, HTN, DM 2 who presented with SOB and wheezing. She was admitted for COPD exacerbation. She was started on IV steroids, azithromycin and scheduled breathing treatments. She was initially placed on 2L of O2 via NC. She did gradually improve. On day of discharge, she was back to her baseline. She had resolution of her wheezes and had clear breath sounds. She ambulated well on the hallways on room air with sats at 96-100%. She will be discharged on 5 more days of prednisone. The dose of her Advair was also increased. She will continue Spiriva and will be given a script for duoneb. Her sugars did run high in the high 200s and low 300s. She was covered with sliding scale. Her hyperglycemia was related to the IV steroids. She had a recent A1C a few weeks ago which was 7.1. She was advised to increased her metformin at home to 1000 mg bid for 5 days while she completes the steroids then switch back to 500 mg bids thereafter. She verbalized understanding. Physical Exam Vital Signs: Temp Pulse Resp BP Pulse Ox 98.4 F 87 16 152/81 H 97 07/04/18 08:29 07/04/18 11:58 07/04/18 11:58 07/04/18 08:29 07/04/18 11:58 Intake & Output 07/03/18 07/04/18 07/05/18 06:59 06:59 06:59 Intake Total 1493 738 Balance 1493 738 Weight 359 lb 9.183 oz 168 lb 13.985 oz General appearance: PRESENT: no acute distress, well-developed, well-nourished Head exam: PRESENT: atraumatic, normocephalic Eye exam: PRESENT: conjunctiva pink, EOMI, PERRLA. ABSENT: scleral icterus Ear exam: PRESENT: normal external ear exam Mouth exam: PRESENT: moist, tongue midline Neck exam: ABSENT: carotid bruit, JVD, lymphadenopathy, thyromegaly Respiratory exam: PRESENT: clear to auscultation connor. ABSENT: rales, rhonchi, wheezes Cardiovascular exam: PRESENT: RRR. ABSENT: diastolic murmur, rubs, systolic murmur Pulses: PRESENT: normal dorsalis pedis pul GI/Abdominal exam: PRESENT: normal bowel sounds, soft. ABSENT: distended, guarding, mass, organolmegaly, rebound, tenderness Rectal exam: PRESENT: deferred Neurological exam: PRESENT: alert, awake, oriented to person, oriented to place, oriented to time, oriented to situation, CN II-XII grossly intact. ABSENT: motor sensory deficit Results Laboratory Results: 07/01/18 14:10 07/01/18 14:10 07/01/18 14:10 Troponin I < 0.012 Impressions: Chest X-Ray 07/01/18 13:36 IMPRESSION: NO ACUTE RADIOGRAPHIC FINDING IN THE CHEST. Qualifiers - * PATIENT BEING DISCHARGED WITH ANY OF THE FOLLOWING DIAGNOSIS: No
[2018-07-04 15:42] VITALS: BP 143/84
== END 2018-07-04 15:35 | disposition home or self-care (01) ==
LOC: ER 13:10 → EH 17:28 → 4N 18:38
PROVIDERS: ADMIT Internal Medicine; ATTEND Internal Medicine
DX: J44.1 Chronic obstructive pulmonary disease with (acute) exacerbation (principal); E11.9 Type 2 diabetes mellitus without complications; I10 Essential (primary) hypertension; Z87.891 Personal history of nicotine dependence; Z79.84 Long term (current) use of oral hypoglycemic drugs; Z79.899 Other long term (current) drug therapy; Z88.6 Allergy status to analgesic agent
CPT/HCPCS: 94640 ×7; 99285; 96374; 36415; 87040; 82962 ×4; 82803; 85025; 80053; 81001; 84484; 87804; 71045; J1815 ×4; J2920 ×4; J2930; J7512 ×2; J3490 ×4; J7040; J7620 ×4; G0378; J1644

== ENCOUNTER 2018-07-26 18:45 | Inpatient (IN) | payer SELFPAY ==
[2018-07-26] MEDS ORDERED: METHYLPREDNISOLONE INJ 125 MG/2 ML SDV IV ONE (19:30)
[2018-07-26] MEDS ORDERED: IPRATROPIUM/ALBUTEROL 0.5-2.5 MG/3 ML AMPUL NEB ONE (19:30)
--- NOTE | 2018-07-26 19:55 | ER Document Report ---
ED General - General Chief Complaint: Breathing Difficulty Stated Complaint: DIFFICULTY BREATHING Time Seen by Provider: 07/26/18 19:28 Notes: Patient is a 57-year-old female with a past medical history of COPD without oxygen dependence at baseline, hypertension, presents with complaints of 4-5 days of progressively worsening shortness of breath. Son at bedside does provide much of the history as the patient is having labored breathing at time of presentation with difficulty speaking. States that the patient has been using more nebulizers at home without relief. Family has requested the patient come to the emergency department repeatedly but she has refused. Patient reports this is very similar to when she has required hospitalization in the past. She has required BiPAP on multiple occasions and has been hospitalized several times with past several months. She has not contacted her primary care doctor regarding today's concerns. Has not noted that anything seems to improve or worsen her symptoms since onset. TRAVEL OUTSIDE OF THE [place] IN LAST 30 DAYS: No - Related Data Allergies/Adverse Reactions: benzonatate [From Tessalon Perles] Allergy (Verified 07/01/18 13:39) RCING HEARTBEART NSAIDS (Non-Steroidal Anti-Inflamma Allergy (Verified 07/01/18 13:39) RACING HEARTBEAT Past Medical History - General Information source: Patient, Relative - Social History Smoking Status: Former Smoker Frequency of alcohol use: None Drug Abuse: None Lives with: Family Family History: COPD, DM, Hypertension - Past Medical History Cardiac Medical History: Reports: Hx Hypertension Pulmonary Medical History: Reports: Hx Asthma, Hx Bronchitis, Hx COPD, Hx Pneumonia Denies: Hx Intubation Endocrine Medical History: Reports: Hx Diabetes Mellitus Type 2 Renal/ Medical History: Denies: Hx Peritoneal Dialysis GI Medical History: Denies: Hx Gastroesophageal Reflux Disease Musculoskeletal Medical History: Reports Hx Arthritis Psychiatric Medical History: Denies: Hx Depression - Immunizations Hx Diphtheria, Pertussis, Tetanus Vaccination: Yes Review of Systems - Review of Systems Notes: Constitutional: Negative for fever. HENT: Negative for sore throat. Eyes: Negative for visual changes. Cardiovascular: Negative for chest pain. Respiratory: Positive for shortness of breath. Gastrointestinal: Negative for abdominal pain, vomiting or diarrhea. Genitourinary: Negative for dysuria. Musculoskeletal: Negative for back pain. Skin: Negative for rash. Neurological: Negative for headaches, weakness or numbness. 10 point ROS negative except as marked above and in HPI. Physical Exam - Vital signs Vitals: Temp Pulse Resp BP Pulse Ox 98.1 F 110 H 20 141/67 H 89 L 07/26/18 18:51 07/26/18 18:51 07/26/18 18:51 07/26/18 18:51 07/26/18 18:51 Interpretation: Tachycardic, Hypoxic Notes: PHYSICAL EXAMINATION: GENERAL: Appears unwell, in moderate respiratory distress HEAD: Atraumatic, normocephalic. EYES: Pupils equal round and reactive to light, extraocular movements intact, sclera anicteric, conjunctiva are normal. ENT: nares patent, oropharynx clear without exudates. Moderate dry mucous membranes. NECK: Normal range of motion, supple without lymphadenopathy LUNGS: Labored breathing, moderate distress with tachypnea into the low 30s. Scattered wheezing in all lung preciado with diminished air movement throughout. HEART: Regular rate and rhythm without murmurs ABDOMEN: Soft, nontender, normoactive bowel sounds. No guarding, no rebound. No masses appreciated. EXTREMITIES: Normal range of motion, no pitting or edema. No cyanosis. NEUROLOGICAL: No focal neurological deficits. Moves all extremities spontaneously and on command. PSYCH: Moderately anxious SKIN: Warm, Dry, normal turgor, no rashes or lesions noted. Course - Re-evaluation Re-evalutation: 07/26/18 19:53 Documentation is delayed as I see and reassess this patient twice prior to beginning documentation. In summary this is a relatively ill-appearing 57-year-old female comes in moderate respiratory distress, poor air movement in all lung preciado, coarse wheezing in all lung preciado. Son at the bedside provides majority of history. States the patient has been having worsening shortness of breath for the last 5 days but has refused to come to the hospital. Patient is required BiPAP with multiple hospitalizations in the last several months often secondary to noncompliance. The patient is able to speak in 3-4 words per sentence. No obvious retractions although was tachypneic into the low 30s at the time of my initial assessment. She is saturating 89% on room air, does not normally require nasal cannula, was discharged several weeks ago saturating 98% on room air she will be placed on BiPAP, continuous albuterol ipratropium nebulizers will be started. IV access will be established, 2 g of mag, 125 mg of Solu-Medrol be administered. Patient will require frequent and regular reassessments. She is in guarded condition secondary to her distress. 07/26/18 22:16 Patient now working on BiPAP, overall improved air movement in all lung preciado on BiPAP. Will continue to reassess at regular intervals. 07/26/18 23:12 Patient is continued to have significant improvement work of breathing on BiPAP. No longer in distress at any kind. Continues to have scattered wheezing in all lung preciado. Saturating 95% on 40% FiO2 by BiPAP. I discussed with Dr. Menendez who states that he is unable to accept the patient at this time. Will contact me when he has a moment. 07/26/18 23:40 Patient has been accepted by the hospitalist. She remains clinically improved. - Vital Signs Vital signs: Temp Pulse Resp BP Pulse Ox 98.1 F 110 H 21 H 121/71 94 07/26/18 18:51 07/26/18 18:51 07/27/18 03:01 07/27/18 03:00 07/27/18 03:01 - Laboratory Result Diagrams: 07/26/18 19:53 07/26/18 19:53 Laboratory results interpreted by me: 07/26/18 07/26/18 19:53 19:53 MCV 79 L MCH 26.3 L RDW 15.1 H Eosinophils % 7.5 H Chloride 108 H Glucose 119 H - Diagnostic Test Radiology reviewed: Image reviewed, Reports reviewed Radiology results interpreted by me: 07/26/18 21:11 Chest x-ray: No acute infiltrate or pneumothorax - EKG Interpretation by Me Additional EKG results interpreted by me: 07/27/18 03:50 Sinus rhythm, rate 99. No ST elevations or depressions. QTC 426. Critical Care Note - Critical Care Note Total time excluding time spent on procedures (mins): 35 Comments: Critical care time spent obtaining history from patient or surrogate, discussions with consultants, development of treatment plan with patient or surrogate, evaluation of patient's response to treatment, examination of p atient, ordering and performing treatments and interventions, ordering and review of laboratory studies, re-evaluation of patient's condition, ordering and review of radiographic studies and review of old charts Discharge - Discharge Clinical Impression: COPD exacerbation, Respiratory distress Condition: Fair Disposition: ADMITTED OBSERVATION Admitting Provider: Hospitalist Unit Admitted: Telemetry
[2018-07-26 20:00] LABS: ABSOLUTE BASOPHILS # (AUTO) 0.1 10^3/uL (0.0-0.2); ABSOLUTE EOSINOPHILS # (AUTO) 0.6 10^3/uL (0.0-0.6); ABSOLUTE LYMPHOCYTES (AUTO) 1.5 10^3/uL (0.5-4.7); ABSOLUTE MONOCYTES (AUTO) 0.8 10^3/uL (0.1-1.4); BASOPHILS % (AUTO) 0.8 % (0-2); EOSINOPHILS % (AUTO) 7.5 % (0-6); HEMATOCRIT 37.1 % (36.0-47.0); HEMOGLOBIN 12.4 g/dL (12.0-15.5); LYMPHOCYTES % (AUTO) 18.4 % (13-45); MEAN CORPUSCULAR HEMOGLOBIN 26.3 pg (27.0-33.4); MEAN CORPUSCULAR HGB CONC 33.4 g/dL (32.0-36.0); MEAN CORPUSCULAR VOLUME 79 fl (80-97); MONOCYTES % (AUTO) 9.6 % (3-13); PLATELET COUNT 374 10^3/uL (150-450); RED CELL DISTRIBUTION WIDTH 15.1 % (11.5-14.0); SEGMENTED NEUTROPHILS % (AUTO) 63.7 % (42-78); TOTAL CELLS COUNTED % (AUTO) 100 %; WHITE BLOOD COUNT 7.9 10^3/uL (4.0-10.5)
[2018-07-26] MEDS: MAGNESIUM SULFATE/D5W 1 GM/100 ML RTUPB IV SCH ×2 (20:06→21:27)
[2018-07-26 20:14] LABS: ANION GAP 6 (5-19); BLOOD UREA NITROGEN 14 mg/dL (7-20); CALCIUM 9.6 mg/dL (8.4-10.2); CARBON DIOXIDE 30 mmol/L (22-30); CHLORIDE 108 mmol/L (98-107); GLUCOSE 119 mg/dL (75-110); POTASSIUM 3.6 mmol/L (3.6-5.0); SODIUM 143.7 mmol/L (137-145)
--- NOTE | 2018-07-26 20:24 | RADIOLOGY REPORT (SQ) ---
EXAM DESCRIPTION: XR CHEST 1 VIEW COMPLETED DATE/TME: 07/26/2018 19:29 CLINICAL HISTORY: 57 years, Female, sob FINDINGS: The heart is not enlarged. No consolidation or pleural effusion. No pulmonary edema or pneumothorax. IMPRESSION: No acute disease.
[2018-07-26] MEDS ORDERED: RINGERS SOLUTION,LACTATED 1,000 ML IV ONE (21:10)
[2018-07-26] MEDS ORDERED: ALBUTEROL SULFATE 0.083% NEB 2.5 MG/3 ML AMPUL NEB ONE (21:10)
[2018-07-26] MEDS ORDERED: MAG HYDROX/AL HYDROX/SIMETH SUSP 30 ML UDCUP PO PRN (23:43)
[2018-07-26] MEDS ORDERED: MAGNESIUM HYDROXIDE SUSP 30 ML UDCUP PO PRN (23:43)
[2018-07-26] MEDS ORDERED: ONDANSETRON 4 MG TAB.RAPDIS PO PRN (23:43)
[2018-07-26] MEDS ORDERED: ONDANSETRON HCL INJ/PF 4 MG/2 ML SDV IV PRN (23:43)
[2018-07-26] MEDS ORDERED: ACETAMINOPHEN 325 MG TABLET PO PRN (23:49)
[2018-07-26] MEDS ORDERED: NICOTINE 21 MG/24 HR PATCH.TD24 TD PRN (23:49)
[2018-07-26] MEDS ORDERED: ACETAMINOPHEN 650 MG SUPP.RECT PR PRN (23:49)
[2018-07-26] MEDS ORDERED: LABETALOL HCL INJ 20 MG/4 ML DISP.SYRIN IV PRN (23:50)
[2018-07-26] MEDS ORDERED: GLUCAGON,HUMAN RECOMB 1 MG INJ IM PRN (23:51)
[2018-07-26] MEDS ORDERED: DEXTROSE 40% GEL 15 GM TUBE PO PRN ×2 (23:51)
[2018-07-26] MEDS ORDERED: DEXTROSE 50%-WATER 25 GM/50 ML DISP.SYRIN IV PRN ×2 (23:51)
[2018-07-26 23:54] LABS: VENOUS BLOOD BASE EXCESS -0.2 mmol/L; VENOUS BLOOD HCO3 26.3 mmol/L (20-32); VENOUS BLOOD PCO2 50.7 mmHg (35-63); VENOUS BLOOD PH 7.33 (7.30-7.42)
--- NOTE | 2018-07-27 00:16 | EKG REPORT ---
SEVERITY:- NORMAL ECG - SINUS RHYTHM : Confirmed by: Tianna Xavier 27-Jul-2018 00:15:41
[2018-07-27 01:11] LABS: APPEARANCE,URINE CLEAR; BILIRUBIN,URINE NEGATIVE (NEGATIVE); COLOR,URINE YELLOW; GLUCOSE, URINE 50 mg/dL (NEGATIVE); KETONES,URINE TRACE mg/dL (NEGATIVE); LEUKOCYTE ESTERASE,URINE NEGATIVE (NEGATIVE); NITRITE,URINE NEGATIVE (NEGATIVE); PROTEIN,URINE NEGATIVE (NEGATIVE); URINE SPECIFIC GRAVITY 1.014; UROBILINOGEN,URINE NEGATIVE mg/dL (<2.0)
[2018-07-27 01:24] LABS: URINE AMPHETAMINES SCREEN NEGATIVE; URINE BARBITURATES SCREEN NEGATIVE; URINE BENZODIAZEPINES SCREEN NEGATIVE; URINE COCAINE SCREEN NEGATIVE; URINE MARIJUANA (THC) SCREEN NEGATIVE; URINE PHENCYCLIDINE SCREEN NEGATIVE
[2018-07-27 01:36] LABS: URINE METHADONE SCREEN NEGATIVE
[2018-07-27 02:19] LABS: CREATINE KINASE MB 0.26 ng/mL (<4.55)
[2018-07-27 02:28] LABS: TROPONIN I < 0.012 ng/mL
--- NOTE | 2018-07-27 03:04 | PDOC H&P ---
History of Present Illness Admission Date/PCP: JENNIFER MEYER Patient complains of: Dyspnea History of Present Illness: ADDIE STEWART is a 57 year old female who presented with a 5-day history of progressively worsening dyspnea with a nonproductive cough with progressively worsening wheezing. She acknowledges minimal waxing and waning dyspnea at the onset of her illness 5 days ago but the course of the illness was a persistent, gradual progression in severity and constancy until today her dyspnea became so continuously severe that she finally decided to come to the emergency room. She admits to many similar prior episodes and has not identified any aggravating or ameliorating factors for her current episode of dyspnea. Upon arrival in the emergency room she markedly tachycardic, tachypneic and was found to have an O2 sat of 89% on room air. She was treated with nebulizer therapy, supplemental O2 and eventually started on BiPAP which resulted in her significant improvement. She was subsequently admitted for further evaluation and treatment. Past Medical History Cardiac Medical History: Reports: Hypertension Denies: Atrial Fibrillation, Coronary Artery Disease, DVT, Pulmonary Embolism Pulmonary Medical History: Reports: Asthma, Bronchitis, Chronic Obstructive Pulmonary Disease (COPD), Pneumonia, Respiratory Failure Denies: Intubation EENT Medical History: Reports: None Neurological Medical History: Denies: Hemorrhagic CVA, Ischemic CVA, Seizures Endocrine Medical History: Reports: Diabetes Mellitus Type 2 Denies: Diabetes Mellitus Type 1, Hyperthyroidism, Hypothyroidism Renal/ Medical History: Denies: Chronic Kidney Disease, Nephrolithiasis Malignancy Medical History: Reports: None GI Medical History: Denies: Cirrhosis, Gastroesophageal Reflux Disease, Hepatitis Musculoskeltal Medical History: Reports: Arthritis Denies: Gout Skin Medical History: Denies: Eczema, Psoriasis Psychiatric Medical History: Denies: Alcohol Dependency, Substance Abuse Traumatic Medical History: Reports: None Hematology: Denies: Anemia, Bleeding Tendencies Infectious Medical History: Reports: None Past Surgical History Past Surgical History: Reports: None Social History Information Source: Patient Lives with: Spouse/Significant other Smoking Status: Former Smoker Frequency of Alcohol Use: None Hx Recreational Drug Use: No Drugs: None Hx Prescription Drug Abuse: No - Advance Directive Resuscitation Status: Full Code Surrogate healthcare decision maker:: Family History Family History: COPD, DM, Hypertension Parental Family History Reviewed: Yes Children Family History Reviewed: No Sibling(s) Family History Reviewed.: Yes Medication/Allergy Home Medications: Albuterol Sulfate [Proair HFA Inhalation Aerosol 8.5 gm MDI] 2 puff IH Q4HP PRN 07/01/18 Carvedilol [Coreg 3.125 mg Tablet] 3.125 mg PO Q12 07/01/18 Diltiazem HCl [Cardizem LA] 240 mg PO Q12 07/01/18 Metformin HCl [Glucophage 500 mg Tablet] 500 mg PO BID 07/01/18 Montelukast Sodium [Singulair 10 mg Tablet] 10 mg PO QPM 07/01/18 Fluticasone/Salmeterol [Advair 250-50 Diskus 14 Dose/Diskus] 2 inh IH Q12H #1 inhaler 07/04/18 Ipratropium/Albuterol Sulfate [Duoneb 3 ml Ampul] 3 ml NEB Q6HP PRN #20 vial.neb 07/04/18 Prednisone [Deltasone 20 mg Tablet] 40 mg PO BID 5 Days #10 tablet 07/04/18 Allergies/Adverse Reactions: benzonatate [From Wes Blanco] Allergy (Verified 07/01/18 13:39) RCING HEARTBEART NSAIDS (Non-Steroidal Anti-Inflamma Allergy (Verified 07/01/18 13:39) RACING HEARTBEAT Review of Systems Constitutional: ABSENT: chills, fever(s) Eyes: ABSENT: visual disturbances, other - Ocular pain Ears: ABSENT: hearing changes, other - Ear pain Nose, Mouth, and Throat: ABSENT: mouth pain, sore throat Cardiovascular: PRESENT: as per HPI, dyspnea on exertion. ABSENT: chest pain, edema, orthropnea, palpitations Respiratory: PRESENT: as per HPI, cough, dyspnea Gastrointestinal: ABSENT: abdominal pain, constipation, diarrhea, nausea, vomiting Genitourinary: ABSENT: dysuria, hematuria Musculoskeletal: ABSENT: back pain, joint swelling Integumentary: ABSENT: pruritus, rash Neurological: ABSENT: confusion, convulsions, memory loss Psychiatric: ABSENT: anxiety, depression Endocrine: ABSENT: cold intolerance, heat intolerance Hematologic/Lymphatic: ABSENT: easy bleeding, easy bruising Physical Exam Vital Signs: Temp Pulse Resp BP Pulse Ox 98.1 F 110 H 23 H 119/63 94 07/26/18 18:51 07/26/18 18:51 07/26/18 23:01 07/26/18 23:00 07/26/18 23:01 Intake & Output 07/24/18 07/25/18 07/26/18 23:59 23:59 23:59 Intake Total 200 Balance 200 Weight 73.2 kg General appearance: PRESENT: no acute distress, cooperative, other Head exam: PRESENT: atraumatic, normocephalic Eye exam: PRESENT: conjunctiva pink, EOMI. ABSENT: scleral icterus Ear exam: PRESENT: normal external ear exam. ABSENT: bleeding, drainage Mouth exam: PRESENT: dry mucosa, neck supple, tongue midline Neck exam: ABSENT: JVD, thyromegaly, tracheal deviation Respiratory exam: PRESENT: decreased breath sounds - Decreased breath sounds throughout all preciado consistent with mild to moderate COPD, prolonged expiratory phas - Mildly prolonged expiratory phase in all preciado, symmetrical, wheezes - Expiratory wheezes noted in all preciado Cardiovascular exam: PRESENT: RRR. ABSENT: clicks, gallop, rubs Pulses: PRESENT: normal radial pulses, normal dorsalis pedis pul Vascular exam: PRESENT: normal capillary refill. ABSENT: pallor GI/Abdominal exam: PRESENT: normal bowel sounds, soft Rectal exam: PRESENT: deferred Extremities exam: ABSENT: joint swelling, pedal edema Musculoskeletal exam: ABSENT: deformity, dislocation Neurological exam: PRESENT: alert, oriented to person, oriented to place, oriented to time, oriented to situation, CN II-XII grossly intact. ABSENT: motor sensory deficit Psychiatric exam: PRESENT: appropriate affect, normal mood Skin exam: PRESENT: dry, intact, warm. ABSENT: jaundice, rash, urticaria Results Laboratory Results: 07/26/18 19:53 07/26/18 19:53 07/26/18 07/26/18 19:53 19:53 WBC 7.9 RBC 4.70 Hgb 12.4 Hct 37.1 MCV 79 L MCH 26.3 L MCHC 33.4 RDW 15.1 H Plt Count 374 Seg Neutrophils % 63.7 Lymphocytes % 18.4 Monocytes % 9.6 Eosinophils % 7.5 H Basophils % 0.8 Absolute Neutrophils 5.0 Absolute Lymphocytes 1.5 Absolute Monocytes 0.8 Absolute Eosinophils 0.6 Absolute Basophils 0.1 Sodium 143.7 Potassium 3.6 Chloride 108 H Carbon Dioxide 30 Anion Gap 6 BUN 14 Creatinine 0.54 Est GFR ( Amer) > 60 Est GFR (Non-Af Amer) > 60 Glucose 119 H Calcium 9.6 01/14/19 19:53 Troponin I < 0.012 NT-Pro-B Natriuret Pep Cancelled Impressions: Chest X-Ray 07/26/18 19:29 IMPRESSION: No acute disease. Assessment & Plan - Diagnosis (1) Acute respiratory failure with hypoxemia Is this a current diagnosis for this admission?: Yes Plan: Patient will be treated with supplemental oxygen and BiPAP as required to maintain adequate oxygenation. (2) Acute exacerbation of chronic obstructive pulmonary disease (COPD) Is this a current diagnosis for this admission?: Yes Plan: Patient will be treated with an aggressive pulmonary toilet utilizing Xopenex, Atrovent, Pulmicort and albuterol nebulizers as well as Solu-Medrol IV. (3) Diabetes mellitus type 2 in obese Is this a current diagnosis for this admission?: Yes Plan: Patient will be continued on her current regiment for diabetes mellitus. Hemoglobin A1c will be obtained to assess current therapy. (4) Hypertension Qualifiers: Hypertension type: essential hypertension Qualified Code(s): I10 - Essential (primary) hypertension Is this a current diagnosis for this admission?: Yes Plan: Patient will be continued on her current antihypertensive regimen with adjustments made only as required. - Time Time Spent: 30 to 50 Minutes Critical Time spent with patient: Less than 15 minutes Medications reviewed and adjusted accordingly: Yes Anticipated discharge: Home - Inpatient Certification Based on my medical assessment, after consideration of the patient's comorbidi ties, presenting symptoms, or acuity I expect that the services needed warrant INPATIENT care.: Yes I certify that my determination is in accordance with my understanding of [place]'s requirements for reasonable and necessary INPATIENT services [42 CFR 412.3e].: Yes Medical Necessity: Need Close Monitoring Due to Risk of Patient Decompensation, Need for Nebulizer Therapy and Monitoring of Response, Risk of Complication if Not Cared For in Hospital
[2018-07-27] MEDS: METHYLPREDNISOLONE INJ 40 MG/1 ML SDV IV SCH ×3 (03:45→16:20)
[2018-07-27] MEDS: IPRATROPIUM BROMIDE 0.02% NEB 0.5 MG/2.5 ML AMPUL NEB SCH ×3 (05:05→20:37)
[2018-07-27] MEDS: LEVALBUTEROL HCL NEB 1.25 MG/3 ML AMPUL NEB SCH ×3 (05:05→20:37)
[2018-07-27] MEDS: HEPARIN SOD (PORCINE) 5,000 UNIT/ML 1 ML SYRINGE SUBCUT SCH ×3 (05:08→21:50)
[2018-07-27 07:55] LABS: ABSOLUTE LYMPHOCYTES (AUTO) 0.5 10^3/uL (0.5-4.7); ABSOLUTE NEUT (AUTO) 4.2 10^3/uL (1.7-8.2); BASOPHILS % (AUTO) 0.4 % (0-2); EOSINOPHILS % (AUTO) 0.1 % (0-6); HEMOGLOBIN 11.7 g/dL (12.0-15.5); LYMPHOCYTES % (AUTO) 9.5 % (13-45); MEAN CORPUSCULAR HEMOGLOBIN 26.2 pg (27.0-33.4); MEAN CORPUSCULAR HGB CONC 33.3 g/dL (32.0-36.0); MEAN CORPUSCULAR VOLUME 79 fl (80-97); MONOCYTES % (AUTO) 0.8 % (3-13); PLATELET COUNT 350 10^3/uL (150-450); RED BLOOD COUNT 4.45 10^6/uL (3.72-5.28); RED CELL DISTRIBUTION WIDTH 15.2 % (11.5-14.0); SEGMENTED NEUTROPHILS % (AUTO) 89.2 % (42-78); TOTAL CELLS COUNTED % (AUTO) 100 %; WHITE BLOOD COUNT 4.8 10^3/uL (4.0-10.5)
[2018-07-27 08:13] LABS: BLOOD UREA NITROGEN 13 mg/dL (7-20); CALCIUM 9.5 mg/dL (8.4-10.2); GLUCOSE 232 mg/dL (75-110)
[2018-07-27 08:14] LABS: ANION GAP 9 (5-19); CARBON DIOXIDE 27 mmol/L (22-30); CHLORIDE 108 mmol/L (98-107); CHOLESTEROL 234.32 mg/dL (0-200); CREATINE KINASE 30 U/L (30-135); POTASSIUM 4.4 mmol/L (3.6-5.0); SODIUM 143.9 mmol/L (137-145); TRIGLYCERIDES 48 mg/dL (<150)
[2018-07-27 08:24] LABS: DIRECT LDL 138 mg/dL (<100)
[2018-07-27 08:26] LABS: CREATINE KINASE MB 0.25 ng/mL (<4.55); NT PRO BNP 28 pg/mL (5-900)
[2018-07-27 08:27] LABS: FREE T3 3.48 pg/mL (2.77-5.27); FREE T4 (FREE THYROXINE) 1.14 ng/dL (0.78-2.19)
[2018-07-27 08:29] LABS: TROPONIN I < 0.012 ng/mL
[2018-07-27] MEDS: METFORMIN HCL 500 MG TABLET PO SCH ×2 (08:33→16:20)
[2018-07-27] MEDS: BUDESONIDE NEB 0.5 MG/2 ML AMPUL NEB SCH ×2 (08:33→20:37)
[2018-07-27 09:23] LABS: THYROID STIMULATING HORMONE 0.29 uIU/mL (0.47-4.68)
[2018-07-27] MEDS: FAMOTIDINE 20 MG TABLET PO SCH ×2 (10:00→21:50)
[2018-07-27] MEDS: DOCUSATE SODIUM 100 MG CAPSULE PO SCH ×2 (10:00→17:10)
[2018-07-27] MEDS: METOPROLOL SUCCINATE 50 MG TAB.SR.24H PO SCH (10:00)
[2018-07-27 11:10] LABS: ARTERIAL BLOOD BASE EXCESS 0.3 mmol/L; ARTERIAL BLOOD H2CO3 1.33 mmol/L (1.05-1.35); ARTERIAL BLOOD HCO3 25.6 mmol/L (20-24); ARTERIAL BLOOD O2 SATURATION 96.7 % (94-98); ARTERIAL BLOOD PCO2 44.3 mmHg (35-45); ARTERIAL BLOOD PH 7.38 (7.35-7.45); ARTERIAL BLOOD PO2 89.9 mmHg (80-100)
[2018-07-27 11:12] LABS: ARTERIAL BLOOD FIO2 30%
[2018-07-27 14:12] LABS: CREATINE KINASE MB 0.32 ng/mL (<4.55)
[2018-07-27 14:15] LABS: TROPONIN I < 0.012 ng/mL
[2018-07-27] MEDS: INSULIN REG, HUMAN 100 UNIT/ML 3 ML VIAL (PYX) SUBCUT PRN ×2 (16:32→22:32)
[2018-07-27] MEDS: MONTELUKAST SODIUM 10 MG TABLET PO SCH (17:10)
[2018-07-28] MEDS: IPRATROPIUM BROMIDE 0.02% NEB 0.5 MG/2.5 ML AMPUL NEB SCH ×3 (03:57→19:32)
[2018-07-28] MEDS: LEVALBUTEROL HCL NEB 1.25 MG/3 ML AMPUL NEB SCH ×3 (03:58→19:32)
[2018-07-28] MEDS: HEPARIN SOD (PORCINE) 5,000 UNIT/ML 1 ML SYRINGE SUBCUT SCH ×3 (05:01→21:35)
[2018-07-28 05:31] LABS: ABSOLUTE LYMPHOCYTES (AUTO) 0.9 10^3/uL (0.5-4.7); ABSOLUTE MONOCYTES (AUTO) 0.5 10^3/uL (0.1-1.4); ABSOLUTE NEUT (AUTO) 7.1 10^3/uL (1.7-8.2); BASOPHILS % (AUTO) 0.3 % (0-2); HEMATOCRIT 33.4 % (36.0-47.0); HEMOGLOBIN 11.4 g/dL (12.0-15.5); LYMPHOCYTES % (AUTO) 10.5 % (13-45); MEAN CORPUSCULAR HEMOGLOBIN 26.5 pg (27.0-33.4); MEAN CORPUSCULAR VOLUME 78 fl (80-97); MONOCYTES % (AUTO) 6.2 % (3-13); PLATELET COUNT 344 10^3/uL (150-450); RED CELL DISTRIBUTION WIDTH 15.1 % (11.5-14.0); TOTAL CELLS COUNTED % (AUTO) 100 %; WHITE BLOOD COUNT 8.6 10^3/uL (4.0-10.5)
[2018-07-28 05:49] LABS: ANION GAP 6 (5-19); BLOOD UREA NITROGEN 20 mg/dL (7-20); CALCIUM 9.7 mg/dL (8.4-10.2); CARBON DIOXIDE 29 mmol/L (22-30); CHLORIDE 107 mmol/L (98-107); GLUCOSE 219 mg/dL (75-110); POTASSIUM 4.7 mmol/L (3.6-5.0); SODIUM 141.8 mmol/L (137-145)
[2018-07-28] MEDS: INSULIN REG, HUMAN 100 UNIT/ML 3 ML VIAL (PYX) SUBCUT PRN ×3 (08:32→21:46)
[2018-07-28] MEDS: METFORMIN HCL 500 MG TABLET PO SCH ×2 (08:32→16:20)
[2018-07-28] MEDS: ALBUTEROL SULFATE 0.083% NEB 2.5 MG/3 ML AMPUL NEB PRN (09:26)
[2018-07-28] MEDS: BUDESONIDE NEB 0.5 MG/2 ML AMPUL NEB SCH ×2 (09:26→19:32)
[2018-07-28] MEDS ORDERED: METHYLPREDNISOLONE INJ 125 MG/2 ML SDV IV ONE (09:36)
[2018-07-28] MEDS: FAMOTIDINE 20 MG TABLET PO SCH ×2 (11:10→21:46)
[2018-07-28] MEDS: METOPROLOL SUCCINATE 50 MG TAB.SR.24H PO SCH (11:10)
[2018-07-28] MEDS: DOCUSATE SODIUM 100 MG CAPSULE PO SCH ×2 (11:12→18:05)
[2018-07-28] MEDS: AZITHROMYCIN 500 MG in DEXTROSE 5%-WATER 250 ML IV SCH (12:08)
[2018-07-28] MEDS ORDERED: METHYLPREDNISOLONE INJ 40 MG/1 ML SDV IV SCH (14:00)
[2018-07-28] MEDS: METHYLPREDNISOLONE INJ 125 MG/2 ML SDV IV SCH ×2 (16:20→21:46)
--- NOTE | 2018-07-28 16:48 | PDOC PROGRESS REPORT ---
Subjective Progress Note for:: 07/28/18 Subjective:: This is a 57 years old black female patient who is known to me from her previous admissions. She presented with chief complaint of worsening cough, dyspnea and wheezing of 5 days duration. Patient has underlying bronchial asthma and COPD. Despite using her home inhalers patient failed to respond. This morning I seen patient sitting at the bedside and getting bronchodilators. I listen to her chest and is full of wheezing diffusely and also air entry is decreased bilaterally. I added to her regimen Zithromax and Solu-Medrol. Reason For Visit: ACUTE COPD EXACERBATION Physical Exam Vital Signs: Temp Pulse Resp BP Pulse Ox 97.3 F 94 23 H 133/91 H 99 07/28/18 12:00 07/28/18 12:00 07/28/18 12:00 07/28/18 12:00 07/28/18 12:00 Intake & Output 07/27/18 07/28/18 07/29/18 06:59 06:59 06:59 Intake Total 200 355 250 Balance 200 355 250 Weight 73.2 kg 70 kg General appearance: PRESENT: well-developed, well-nourished, other - Moderate to severe respiratory distress Head exam: PRESENT: atraumatic, normocephalic Mouth exam: PRESENT: moist Respiratory exam: PRESENT: decreased breath sounds, wheezes - Bilaterally Cardiovascular exam: PRESENT: RRR. ABSENT: diastolic murmur, rubs, systolic murmur GI/Abdominal exam: PRESENT: normal bowel sounds, soft. ABSENT: distended, guarding, mass, organolmegaly, rebound, tenderness Extremities exam: PRESENT: full ROM. ABSENT: calf tenderness, clubbing, pedal edema Neurological exam: PRESENT: alert, awake, oriented to time, oriented to situation Psychiatric exam: PRESENT: normal mood Results Laboratory Results: 07/28/18 04:37 07/28/18 04:37 07/28/18 07/28/18 04:37 04:37 WBC 8.6 RBC 4.30 Hgb 11.4 L Hct 33.4 L MCV 78 L MCH 26.5 L MCHC 34.0 RDW 15.1 H Plt Count 344 Seg Neutrophils % 83.0 H Lymphocytes % 10.5 L Monocytes % 6.2 Eosinophils % 0.0 Basophils % 0.3 Absolute Neutrophils 7.1 Absolute Lymphocytes 0.9 Absolute Monocytes 0.5 Absolute Eosinophils 0.0 Absolute Basophils 0.0 Sodium 141.8 Potassium 4.7 Chloride 107 Carbon Dioxide 29 Anion Gap 6 BUN 20 Creatinine 0.61 Est GFR ( Amer) > 60 Est GFR (Non-Af Amer) > 60 Glucose 219 H Calcium 9.7 Magnesium 2.4 H 07/26/18 07/27/18 07/27/18 19:53 01:43 01:43 Creatine Kinase 39 CK-MB (CK-2) 0.26 Troponin I < 0.012 < 0.012 NT-Pro-B Natriuret Pep Cancelled 07/27/18 07/27/18 07/27/18 07:41 07:41 13:33 Creatine Kinase 30 32 CK-MB (CK-2) 0.25 Troponin I < 0.012 NT-Pro-B Natriuret Pep 28 07/27/18 13:33 Creatine Kinase CK-MB (CK-2) 0.32 Troponin I < 0.012 NT-Pro-B Natriuret Pep Impressions: Chest X-Ray 07/26/18 19:29 IMPRESSION: No acute disease. Assessment & Plan - Diagnosis (1) Acute respiratory failure with hypoxemia Is this a current diagnosis for this admission?: Yes Plan: Continue supplemental oxygen. (2) COPD with exacerbation Is this a current diagnosis for this admission?: Yes Plan: Continue bronchodilators, Solu-Medrol and Zithromax. 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
[2018-07-28] MEDS: MONTELUKAST SODIUM 10 MG TABLET PO SCH (18:02)
[2018-07-29] MEDS: IPRATROPIUM BROMIDE 0.02% NEB 0.5 MG/2.5 ML AMPUL NEB SCH ×3 (03:13→20:07)
[2018-07-29] MEDS: LEVALBUTEROL HCL NEB 1.25 MG/3 ML AMPUL NEB SCH ×3 (03:13→20:07)
[2018-07-29 05:08] LABS: ABSOLUTE LYMPHOCYTES (AUTO) 0.6 10^3/uL (0.5-4.7); ABSOLUTE MONOCYTES (AUTO) 0.2 10^3/uL (0.1-1.4); ABSOLUTE NEUT (AUTO) 5.7 10^3/uL (1.7-8.2); BASOPHILS % (AUTO) 0.1 % (0-2); HEMATOCRIT 32.5 % (36.0-47.0); HEMOGLOBIN 10.9 g/dL (12.0-15.5); LYMPHOCYTES % (AUTO) 8.8 % (13-45); MEAN CORPUSCULAR HEMOGLOBIN 26.3 pg (27.0-33.4); MEAN CORPUSCULAR HGB CONC 33.6 g/dL (32.0-36.0); MEAN CORPUSCULAR VOLUME 78 fl (80-97); MONOCYTES % (AUTO) 2.6 % (3-13); PLATELET COUNT 338 10^3/uL (150-450); RED BLOOD COUNT 4.16 10^6/uL (3.72-5.28); SEGMENTED NEUTROPHILS % (AUTO) 88.5 % (42-78); TOTAL CELLS COUNTED % (AUTO) 100 %; WHITE BLOOD COUNT 6.5 10^3/uL (4.0-10.5)
[2018-07-29 05:27] LABS: ANION GAP 7 (5-19); BLOOD UREA NITROGEN 20 mg/dL (7-20); CALCIUM 9.4 mg/dL (8.4-10.2); CARBON DIOXIDE 32 mmol/L (22-30); CHLORIDE 105 mmol/L (98-107); GLUCOSE 206 mg/dL (75-110); POTASSIUM 4.4 mmol/L (3.6-5.0); SODIUM 143.6 mmol/L (137-145)
[2018-07-29] MEDS: HEPARIN SOD (PORCINE) 5,000 UNIT/ML 1 ML SYRINGE SUBCUT SCH ×3 (05:28→21:28)
[2018-07-29] MEDS: METHYLPREDNISOLONE INJ 125 MG/2 ML SDV IV SCH ×3 (05:30→22:55)
[2018-07-29] MEDS: METFORMIN HCL 500 MG TABLET PO SCH ×4 (07:46→17:35)
[2018-07-29] MEDS: INSULIN REG, HUMAN 100 UNIT/ML 3 ML VIAL (PYX) SUBCUT PRN ×4 (07:46→22:54)
[2018-07-29] MEDS: ALBUTEROL SULFATE 0.083% NEB 2.5 MG/3 ML AMPUL NEB PRN (08:00)
[2018-07-29] MEDS: BUDESONIDE NEB 0.5 MG/2 ML AMPUL NEB SCH ×2 (08:00→20:07)
[2018-07-29] MEDS ORDERED: DOCUSATE SODIUM 100 MG CAPSULE PO PRN ×2 (09:00→09:30)
[2018-07-29] MEDS ORDERED: IPRATROPIUM/ALBUTEROL 0.5-2.5 MG/3 ML AMPUL NEB PRN (09:45)
[2018-07-29] MEDS ORDERED: ALBUTEROL SULFATE 0.083% NEB 2.5 MG/3 ML AMPUL NEB PRN (09:45)
[2018-07-29] MEDS ORDERED: CARVEDILOL 3.125 MG TABLET PO SCH (10:00)
[2018-07-29] MEDS ORDERED: (PENDING PHARMACY ID) (Diltiazem Hcl [Diltiazem 24hr Er] 240 MG) PO SCH (10:00)
[2018-07-29] MEDS: DILTIAZEM HCL 240 MG CAPSULE.CR PO SCH ×2 (10:25→22:59)
[2018-07-29] MEDS: FAMOTIDINE 20 MG TABLET PO SCH ×2 (10:26→22:53)
[2018-07-29] MEDS: CARVEDILOL 3.125 MG TABLET PO SCH ×2 (10:26→22:58)
[2018-07-29] MEDS: AZITHROMYCIN 500 MG in DEXTROSE 5%-WATER 250 ML IV SCH (10:26)
[2018-07-29] MEDS: BUDESONIDE/FORMOTEROL 160-4.5 MCG 60 PUFF/6 GM MDI IH SCH ×2 (12:48→22:54)
--- NOTE | 2018-07-29 14:24 | PDOC PROGRESS REPORT ---
Subjective Progress Note for:: 07/27/18 Subjective:: Patient seen and examined at bedside. She is awake alert oriented. She is in mild to moderate respiratory distress. Reason For Visit: ACUTE COPD EXACERBATION Physical Exam Vital Signs: Temp Pulse Resp BP Pulse Ox 97.4 F 97 20 129/72 H 98 07/29/18 12:45 07/29/18 12:50 07/29/18 12:50 07/29/18 12:45 07/29/18 12:50 Intake & Output 07/28/18 07/29/18 07/30/18 06:59 06:59 06:59 Intake Total 355 1438 250 Balance 355 1438 250 Weight 70 kg 74.1 kg General appearance: PRESENT: no acute distress, well-developed, well-nourished Head exam: PRESENT: atraumatic, normocephalic Eye exam: PRESENT: conjunctiva pink, EOMI, PERRLA. ABSENT: scleral icterus Ear exam: PRESENT: normal external ear exam Mouth exam: PRESENT: moist, tongue midline Neck exam: ABSENT: carotid bruit, JVD, lymphadenopathy, thyromegaly Respiratory exam: PRESENT: decreased breath sounds, wheezes Cardiovascular exam: PRESENT: RRR. ABSENT: diastolic murmur, rubs, systolic murmur Pulses: PRESENT: normal dorsalis pedis pul Vascular exam: PRESENT: normal capillary refill GI/Abdominal exam: PRESENT: normal bowel sounds, soft. ABSENT: distended, guarding, mass, organolmegaly, rebound, tenderness Rectal exam: PRESENT: deferred Extremities exam: PRESENT: full ROM. ABSENT: calf tenderness, clubbing, pedal edema Neurological exam: PRESENT: alert, awake, oriented to person, oriented to place, oriented to time, oriented to situation, CN II-XII grossly intact. ABSENT: motor sensory deficit Psychiatric exam: PRESENT: appropriate affect, normal mood. ABSENT: homicidal ideation, suicidal ideation Skin exam: PRESENT: dry, intact, warm. ABSENT: cyanosis, rash Results Laboratory Results: 07/29/18 04:21 07/29/18 04:21 07/29/18 07/29/18 04:21 04:21 WBC 6.5 RBC 4.16 Hgb 10.9 L Hct 32.5 L MCV 78 L MCH 26.3 L MCHC 33.6 RDW 15.0 H Plt Count 338 Seg Neutrophils % 88.5 H Lymphocytes % 8.8 L Monocytes % 2.6 L Eosinophils % 0.0 Basophils % 0.1 Absolute Neutrophils 5.7 Absolute Lymphocytes 0.6 Absolute Monocytes 0.2 Absolute Eosinophils 0.0 Absolute Basophils 0.0 Sodium 143.6 Potassium 4.4 Chloride 105 Carbon Dioxide 32 H Anion Gap 7 BUN 20 Creatinine 0.59 Est GFR ( Amer) > 60 Est GFR (Non-Af Amer) > 60 Glucose 206 H Calcium 9.4 Magnesium 2.4 H 07/26/18 07/27/18 07/27/18 19:53 01:43 01:43 Creatine Kinase 39 CK-MB (CK-2) 0.26 Troponin I < 0.012 < 0.012 NT-Pro-B Natriuret Pep Cancelled 07/27/18 07/27/18 07/27/18 07:41 07:41 13:33 Creatine Kinase 30 32 CK-MB (CK-2) 0.25 Troponin I < 0.012 NT-Pro-B Natriuret Pep 28 07/27/18 13:33 Creatine Kinase CK-MB (CK-2) 0.32 Troponin I < 0.012 NT-Pro-B Natriuret Pep Impressions: Chest X-Ray 07/26/18 19:29 IMPRESSION: No acute disease. Assessment & Plan - Diagnosis (1) Acute respiratory failure with hypoxemia Is this a current diagnosis for this admission?: Yes Plan: Continue supplemental oxygen. (2) COPD with exacerbation Is this a current diagnosis for this admission?: Yes Plan: Continue bronchodilators, Solu-Medrol and Zithromax. 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
--- NOTE | 2018-07-29 14:29 | PDOC PROGRESS REPORT ---
Subjective Progress Note for:: 07/29/18 Subjective:: I seen patient sitting by the bedside. She is awake alert oriented. She reports this her breathing is a little bit better than yesterday. I resumed her home Symbicort. Reason For Visit: ACUTE COPD EXACERBATION Physical Exam Vital Signs: Temp Pulse Resp BP Pulse Ox 97.4 F 97 20 129/72 H 98 07/29/18 12:45 07/29/18 12:50 07/29/18 12:50 07/29/18 12:45 07/29/18 12:50 Intake & Output 07/28/18 07/29/18 07/30/18 06:59 06:59 06:59 Intake Total 355 1438 250 Balance 355 1438 250 Weight 70 kg 74.1 kg General appearance: PRESENT: no acute distress, well-developed, well-nourished Head exam: PRESENT: atraumatic, normocephalic Eye exam: PRESENT: conjunctiva pink, EOMI, PERRLA. ABSENT: scleral icterus Ear exam: PRESENT: normal external ear exam Mouth exam: PRESENT: moist, tongue midline Neck exam: ABSENT: carotid bruit, JVD, lymphadenopathy, thyromegaly Respiratory exam: PRESENT: decreased breath sounds, wheezes Cardiovascular exam: PRESENT: RRR. ABSENT: diastolic murmur, rubs, systolic murmur Pulses: PRESENT: normal dorsalis pedis pul Vascular exam: PRESENT: normal capillary refill GI/Abdominal exam: PRESENT: normal bowel sounds, soft. ABSENT: distended, guarding, mass, organolmegaly, rebound, tenderness Rectal exam: PRESENT: deferred Extremities exam: PRESENT: full ROM. ABSENT: calf tenderness, clubbing, pedal edema Neurological exam: PRESENT: alert, awake, oriented to person, oriented to place, oriented to time, oriented to situation, CN II-XII grossly intact. ABSENT: motor sensory deficit Psychiatric exam: PRESENT: appropriate affect, normal mood. ABSENT: homicidal ideation, suicidal ideation Skin exam: PRESENT: dry, intact, warm. ABSENT: cyanosis, rash Results Laboratory Results: 07/29/18 04:21 07/29/18 04:21 07/29/18 07/29/18 04:21 04:21 WBC 6.5 RBC 4.16 Hgb 10.9 L Hct 32.5 L MCV 78 L MCH 26.3 L MCHC 33.6 RDW 15.0 H Plt Count 338 Seg Neutrophils % 88.5 H Lymphocytes % 8.8 L Monocytes % 2.6 L Eosinophils % 0.0 Basophils % 0.1 Absolute Neutrophils 5.7 Absolute Lymphocytes 0.6 Absolute Monocytes 0.2 Absolute Eosinophils 0.0 Absolute Basophils 0.0 Sodium 143.6 Potassium 4.4 Chloride 105 Carbon Dioxide 32 H Anion Gap 7 BUN 20 Creatinine 0.59 Est GFR ( Amer) > 60 Est GFR (Non-Af Amer) > 60 Glucose 206 H Calcium 9.4 Magnesium 2.4 H 07/26/18 07/27/18 07/27/18 19:53 01:43 01:43 Creatine Kinase 39 CK-MB (CK-2) 0.26 Troponin I < 0.012 < 0.012 NT-Pro-B Natriuret Pep Cancelled 07/27/18 07/27/18 07/27/18 07:41 07:41 13:33 Creatine Kinase 30 32 CK-MB (CK-2) 0.25 Troponin I < 0.012 NT-Pro-B Natriuret Pep 28 07/27/18 13:33 Creatine Kinase CK-MB (CK-2) 0.32 Troponin I < 0.012 NT-Pro-B Natriuret Pep Impressions: Chest X-Ray 07/26/18 19:29 IMPRESSION: No acute disease. Assessment & Plan - Diagnosis (1) Acute respiratory failure with hypoxemia Is this a current diagnosis for this admission?: Yes Plan: Continue supplemental oxygen. (2) COPD with exacerbation Is this a current diagnosis for this admission?: Yes Plan: Continue bronchodilators, Solu-Medrol and Zithromax. 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
--- NOTE | 2018-07-29 14:53 | Physician Advisory Note ---
Physician Advisor ProgressNote .: [facility] I have reviewed the medical record for this patient. Physician Advisor Statement: Nice supporting documentation in this chart of dx Acute Respiratory Failure: in ED had labored breathing, mod resp distess, RR into 30s, unable to give much hx due to SOB (later, 3-4 word sentences), and recurrent/persistent tachypnea/tachycardia despite Coreg, along w/O2 sats 89% on RA (P/F ratio 271), 95% on 40% FiO2 (P/F ratio 219), 94% on 3L O2 (P/F ratio 228), and 93% on 3L O2 (P/F ratio 216) - in pt who per ED physician had O2 sat baseline 98% on RA at time of last d/c, & has needed Bipap during this stay. CK
[2018-07-29] MEDS: MONTELUKAST SODIUM 10 MG TABLET PO SCH ×2 (17:31→22:55)
[2018-07-29] MEDS ORDERED: GUAIFENESIN/CODEINE PHOS 100-10 MG/ 5 ML UDC PO PRN (17:45)
[2018-07-30] MEDS: LEVALBUTEROL HCL NEB 1.25 MG/3 ML AMPUL NEB SCH ×3 (04:11→16:32)
[2018-07-30] MEDS: IPRATROPIUM BROMIDE 0.02% NEB 0.5 MG/2.5 ML AMPUL NEB SCH ×3 (04:11→16:32)
[2018-07-30] MEDS: HEPARIN SOD (PORCINE) 5,000 UNIT/ML 1 ML SYRINGE SUBCUT SCH ×3 (06:15→21:41)
[2018-07-30] MEDS: METHYLPREDNISOLONE INJ 125 MG/2 ML SDV IV SCH ×3 (06:18→21:33)
[2018-07-30] MEDS: INSULIN REG, HUMAN 100 UNIT/ML 3 ML VIAL (PYX) SUBCUT PRN ×4 (07:59→21:32)
[2018-07-30] MEDS: METFORMIN HCL 500 MG TABLET PO SCH (07:59)
[2018-07-30] MEDS: BUDESONIDE NEB 0.5 MG/2 ML AMPUL NEB SCH (09:07)
[2018-07-30] MEDS: FAMOTIDINE 20 MG TABLET PO SCH ×2 (09:42→21:37)
[2018-07-30] MEDS: AZITHROMYCIN 250 MG TABLET PO SCH (09:42)
[2018-07-30] MEDS: BUDESONIDE/FORMOTEROL 160-4.5 MCG 60 PUFF/6 GM MDI IH SCH ×2 (09:43→21:35)
[2018-07-30] MEDS: DILTIAZEM HCL 240 MG CAPSULE.CR PO SCH ×2 (09:43→21:37)
[2018-07-30] MEDS: CARVEDILOL 3.125 MG TABLET PO SCH ×2 (09:43→21:36)
--- NOTE | 2018-07-30 17:09 | PDOC PROGRESS REPORT ---
Subjective Progress Note for:: 07/30/18 Subjective:: getting neb treatment for his COPD. still wheezing. denies chest pain, abdominal pain, n/v or dizziness at this time. Reason For Visit: ACUTE COPD EXACERBATION Physical Exam Vital Signs: Temp Pulse Resp BP Pulse Ox 98.5 F 89 16 134/62 H 91 L 07/30/18 15:00 07/30/18 16:32 07/30/18 16:32 07/30/18 15:00 07/30/18 16:32 Intake & Output 07/29/18 07/30/18 07/31/18 06:59 06:59 06:59 Intake Total 1438 1138 Balance 1438 1138 Weight 163 lb 5.8 oz 163 lb 12.855 oz General appearance: PRESENT: no acute distress Head exam: PRESENT: atraumatic, normocephalic Eye exam: PRESENT: EOMI. ABSENT: conjunctival injection, scleral icterus Ear exam: PRESENT: normal external ear exam Mouth exam: PRESENT: moist. ABSENT: tongue midline Neck exam: ABSENT: tracheal deviation Respiratory exam: PRESENT: accessory muscle use, decreased breath sounds - bilaterally, symmetrical, tachypnea, wheezes - in all lung preciado Cardiovascular exam: PRESENT: +S1, +S2 Pulses: PRESENT: +2 pedal pulses bilateral GI/Abdominal exam: PRESENT: normal bowel sounds, soft. ABSENT: tenderness Extremities exam: ABSENT: pedal edema Neurological exam: PRESENT: alert, awake, oriented to person, oriented to place, oriented to time, oriented to situation, CN II-XII grossly intact Skin exam: PRESENT: dry, warm Results Laboratory Results: 07/29/18 04:21 07/29/18 04:21 07/26/18 07/27/18 07/27/18 19:53 01:43 01:43 Creatine Kinase 39 CK-MB (CK-2) 0.26 Troponin I < 0.012 < 0.012 NT-Pro-B Natriuret Pep Cancelled 07/27/18 07/27/18 07/27/18 07:41 07:41 13:33 Creatine Kinase 30 32 CK-MB (CK-2) 0.25 Troponin I < 0.012 NT-Pro-B Natriuret Pep 28 07/27/18 13:33 Creatine Kinase CK-MB (CK-2) 0.32 Troponin I < 0.012 NT-Pro-B Natriuret Pep Impressions: Chest X-Ray 07/26/18 19:29 IMPRESSION: No acute disease. Assessment & Plan - Diagnosis (1) COPD exacerbation Is this a current diagnosis for this admission?: Yes (2) Acute respiratory failure with hypoxemia Is this a current diagnosis for this admission?: Yes (3) Diabetes mellitus type 2 in obese Is this a current diagnosis for this admission?: Yes (4) GERD (gastroesophageal reflux disease) Qualifiers: Esophagitis presence: without esophagitis Qualified Code(s): K21.9 - Gastro-esophageal reflux disease without esophagitis Is this a current diagnosis for this admission?: Yes (5) Hypertension Qualifiers: Hypertension type: essential hypertension Qualified Code(s): I10 - Essential (primary) hypertension Is this a current diagnosis for this admission?: Yes - Plan Summary Plan Summary: COPD exacerbation- i have changed her meds - she will be on symbicort, solumed IV 60 Q12, duoneb Q6, mucinex, singulair and albuterol PRN. asked RT to assist with aggressive bronchial hygiene. HTN- c/w coreg and cardizem - her BP still on the high side- this afternoon SBP of 70 likely a mistake. i have asked nursing to repeat it. DM type 2- stopped metformin while in hospital, c/w SSI
[2018-07-30] MEDS: IPRATROPIUM/ALBUTEROL 0.5-2.5 MG/3 ML AMPUL NEB SCH (20:01)
[2018-07-30] MEDS: MONTELUKAST SODIUM 10 MG TABLET PO SCH (21:36)
[2018-07-30] MEDS: GUAIFENESIN 600 MG TABLET.SA PO SCH (21:36)
[2018-07-31] MEDS: IPRATROPIUM BROMIDE 0.02% NEB 0.5 MG/2.5 ML AMPUL NEB SCH ×2 (00:37→09:22)
[2018-07-31] MEDS: IPRATROPIUM/ALBUTEROL 0.5-2.5 MG/3 ML AMPUL NEB SCH ×3 (01:51→14:00)
[2018-07-31] MEDS: HEPARIN SOD (PORCINE) 5,000 UNIT/ML 1 ML SYRINGE SUBCUT SCH ×2 (05:05→15:57)
[2018-07-31] MEDS: INSULIN REG, HUMAN 100 UNIT/ML 3 ML VIAL (PYX) SUBCUT PRN ×2 (07:55→12:16)
[2018-07-31] MEDS: CARVEDILOL 3.125 MG TABLET PO SCH (09:39)
[2018-07-31] MEDS: AZITHROMYCIN 250 MG TABLET PO SCH (09:39)
[2018-07-31] MEDS: FAMOTIDINE 20 MG TABLET PO SCH (09:39)
[2018-07-31] MEDS: GUAIFENESIN 600 MG TABLET.SA PO SCH (09:39)
[2018-07-31] MEDS: BUDESONIDE/FORMOTEROL 160-4.5 MCG 60 PUFF/6 GM MDI IH SCH (09:40)
[2018-07-31] MEDS: METHYLPREDNISOLONE INJ 125 MG/2 ML SDV IV SCH (09:40)
[2018-07-31] MEDS: DILTIAZEM HCL 240 MG CAPSULE.CR PO SCH (09:40)
[2018-07-31 12:31] VITALS: BP 135/65
--- NOTE | 2018-07-31 15:04 | PDOC DISCHARGE SUMMARY ---
General - Admit/Disc Date/PCP Admission Date/Primary Care Provider: 07/27/18 00:00 JENNIFER MEYER Discharge Date: 07/31/18 - Discharge Diagnosis (1) COPD exacerbation Is this a current diagnosis for this admission?: Yes (2) Acute respiratory failure with hypoxemia Is this a current diagnosis for this admission?: Yes (3) Diabetes mellitus type 2 in obese Is this a current diagnosis for this admission?: Yes (4) GERD (gastroesophageal reflux disease) Is this a current diagnosis for this admission?: Yes (5) Hypertension Is this a current diagnosis for this admission?: Yes - Additional Information Resuscitation Status: Full Code Discharge Activity: Activity As Tolerated Prescriptions: Azithromycin [Zithromax 250 mg Tablet] 250 mg PO DAILY 3 Days #3 tablet Prednisone [Deltasone 20 mg Tablet] 20 mg PO ASDIR #13 tablet Home Medications: Albuterol Sulfate [Ventolin 0.083% Neb 2.5 mg/3 mL Ampul] 1 vial NEB Q8HP PRN 07/27/18 Diltiazem HCl [Diltiazem 24Hr ER] 240 mg PO Q12 07/27/18 Ipratropium/Albuterol Sulfate [Duoneb 3 ml Ampul] 1 vial NEB Q6HP PRN 07/27/18 Carvedilol [Coreg 3.125 mg Tablet] 1 tab PO BID 07/28/18 Metformin HCl 1 tab PO BID 07/28/18 Montelukast Sodium [Singulair 10 mg Tablet] 1 tab PO QHS 07/28/18 Albuterol Sulfate [Ventolin 0.083% Neb 2.5 mg/3 mL Ampul] 2.5 mg NEB RTQ1HP PRN vial.neb 07/31/18 Azithromycin [Zithromax 250 mg Tablet] 250 mg PO DAILY 3 Days #3 tablet 07/31/18 Budesonide/Formoterol Fumarate [Symbicort HFA 160-4.5 mcg Inhaler 6 gm] 2 puff IH Q12 inhaler 07/31/18 Diltiazem HCl [Cardizem Cd 240 mg Capsule.cr] 240 mg PO Q12 capsule.cr 07/31/18 Guaifenesin [Mucinex Sr 600 mg Tablet.sa] 1,200 mg PO Q12 tablet.sa 07/31/18 Ipratropium/Albuterol Sulfate [Duoneb 3 ml Ampul] 3 ml NEB RTQ6 vial.neb 07/31/18 Prednisone [Deltasone 20 mg Tablet] 20 mg PO ASDIR #13 tablet 07/31/18 History of Present Illness History of Present Illness: ADDIE STEWART is a 57 year old female admitted for COPD exacerbation Hospital Course Hospital Course: after admission she was started on aggressive pulmonary hygiene, neb treatments, solumedrol and later azithro. most likely COPD exacerbation with bronchitis. i saw her this morning and she was sitting on the side of the bed- no oxygen, no distress, no complaints- denies SOB, abdominal pain, chest pain, n/v or dizziness. spoke with and patient at bedside. feels she's at baseline. patient feels she's at baseline. told her to walk the hallway and see how she felt and to tell me if she gets SOB and if she wants to stay another day- they walked together and told me she wants to go home. she will follow up with Dr Patel outpatient she will follow up with her PCP she will continue with azithromycin for 3 more days - 5 day course she will continue with prednisone taper 60mg x2 days, 40mg x2 days, 20mg x2 days, 10mg x2 days. Physical Exam Vital Signs: Temp Pulse Resp BP Pulse Ox 97.7 F 84 18 135/65 H 98 07/31/18 10:00 07/31/18 14:01 07/31/18 14:01 07/31/18 10:00 07/31/18 14:01 Intake & Output 07/30/18 07/31/18 08/01/18 06:59 06:59 06:59 Intake Total 1138 460 Balance 1138 460 Weight 163 lb 12.855 oz 161 lb 2.526 oz General appearance: PRESENT: no acute distress Head exam: PRESENT: atraumatic, normocephalic Eye exam: PRESENT: EOMI, PERRLA. ABSENT: conjunctival injection, scleral icterus Ear exam: PRESENT: normal external ear exam Mouth exam: PRESENT: tongue midline Teeth exam: PRESENT: poor dentation Neck exam: ABSENT: tracheal deviation Respiratory exam: PRESENT: decreased breath sounds, symmetrical. ABSENT: wheezes Cardiovascular exam: PRESENT: +S1, +S2 Pulses: PRESENT: +2 pedal pulses bilateral GI/Abdominal exam: PRESENT: normal bowel sounds, soft. ABSENT: tenderness Extremities exam: ABSENT: pedal edema Neurological exam: PRESENT: alert, awake, oriented to person, oriented to place, oriented to time, oriented to situation, CN II-XII grossly intact Skin exam: PRESENT: dry, warm Results Laboratory Results: 07/29/18 04:21 07/29/18 04:21 07/26/18 07/27/18 07/27/18 19:53 01:43 01:43 Creatine Kinase 39 CK-MB (CK-2) 0.26 Troponin I < 0.012 < 0.012 NT-Pro-B Natriuret Pep Cancelled 07/27/18 07/27/18 07/27/18 07:41 07:41 13:33 Creatine Kinase 30 32 CK-MB (CK-2) 0.25 Troponin I < 0.012 NT-Pro-B Natriuret Pep 28 07/27/18 13:33 Creatine Kinase CK-MB (CK-2) 0.32 Troponin I < 0.012 NT-Pro-B Natriuret Pep Impressions: Chest X-Ray 07/26/18 19:29 IMPRESSION: No acute disease. Qualifiers - * PATIENT BEING DISCHARGED WITH ANY OF THE FOLLOWING DIAGNOSIS: No
== END 2018-07-31 16:00 | disposition home or self-care (01) | DRG 190 ==
LOC: ER 18:45 → EH 07-27 → 3N 07-27 14:55 → 5 07-30 07:11
PROVIDERS: ADMIT Emergency Medicine; ATTEND Emergency Medicine
PROC: 5A09457 Assistance with Respiratory Ventilation, 24-96 Consecutive Hours, Continuous Positive Airway Pressure (ICD-10-PCS; principal; 2018-07-26)
DX: J44.1 Chronic obstructive pulmonary disease with (acute) exacerbation (principal); J96.01 Acute respiratory failure with hypoxia; I10 Essential (primary) hypertension; E11.9 Type 2 diabetes mellitus without complications; K21.9 Gastro-esophageal reflux disease without esophagitis; Z79.51 Long term (current) use of inhaled steroids; Z87.891 Personal history of nicotine dependence; Z79.84 Long term (current) use of oral hypoglycemic drugs; Z79.899 Other long term (current) drug therapy
CPT/HCPCS: 36415; 36600; 71045; 80048; 80061; 80307; 81001; 82550; 82553; 82803; 82962; 83036; 83735; 83880; 84439; 84443; 84481; 84484; 85025; 93005; 93010; 94640; 94660; 94799; 96361; 96365; 96366; 96375; 96376; 99291; J0456; J1815; J2920; J2930; J3475; J3490; J7060; J7120; J7620

== ENCOUNTER 2018-08-20 09:59 | Emergency (ER) | payer MEDICAID ==
[2018-08-20 10:05] VITALS: BP 119/64
== END 2018-08-20 18:16 | disposition left against medical advice (07) ==
LOC: ER 09:59
DX: Z53.21 Procedure and treatment not carried out due to patient leaving prior to being seen by health care provider (principal)

== ENCOUNTER 2018-08-23 18:43 | Emergency (ER) | payer MEDICAID ==
[2018-08-23] MEDS ORDERED: IPRATROPIUM/ALBUTEROL 0.5-2.5 MG/3 ML AMPUL NEB ONE (20:40)
--- NOTE | 2018-08-23 20:41 | ER Document Report ---
ED Medical Screen (RME) - General Chief Complaint: Nausea/Vomiting Stated Complaint: BACK PAIN Time Seen by Provider: 08/23/18 20:32 Primary Care Provider: BONIFACIO MELENDEZ FNP-C [Primary Care Provider] - Follow up as needed Notes: 57-year-old female with chief complaint of flank pain bilaterally, she states she vomited several times yesterday, not today, denies abdominal pain, denies dysuria, denies difficulty breathing. Some congestion and cough. She does report chills and feeling feverish. Past medical history of asthma, just took an albuterol treatment. TRAVEL OUTSIDE OF THE [place] IN LAST 30 DAYS: No - Related Data Allergies/Adverse Reactions: benzonatate [From [email or web address]] Allergy (Verified 08/20/18 10:01) RCING HEARTBEART NSAIDS (Non-Steroidal Anti-Inflamma Allergy (Verified 08/20/18 10:01) RACING HEARTBEAT Past Medical History - Social History Chew tobacco use (# tins/day): No Frequency of alcohol use: None Drug Abuse: None - Past Medical History Cardiac Medical History: Reports: Hx Hypertension Denies: Hx Atrial Fibrillation, Hx Coronary Artery Disease, Hx DVT, Hx Pulmonary Embolism Pulmonary Medical History: Reports: Hx Asthma, Hx Bronchitis, Hx COPD, Hx Pneumonia, Hx Respiratory Failure Denies: Hx Intubation Neurological Medical History: Denies: Hx Seizures Endocrine Medical History: Reports: Hx Diabetes Mellitus Type 2. Denies: Hx Diabetes Mellitus Type 1, Hx Hyperthyroidism, Hx Hypothyroidism Renal/ Medical History: Denies: Hx Peritoneal Dialysis GI Medical History: Denies: Hx Cirrhosis, Hx Gastroesophageal Reflux Disease, Hx Hepatitis Musculoskeltal Medical History: Reports Hx Arthritis, Denies Hx Gout Skin Medical History: Denies Hx Eczema, Denies Hx Psoriasis Psychiatric Medical History: Denies: Hx Depression Infectious Medical History: Denies: Hx Hepatitis - Immunizations Hx Diphtheria, Pertussis, Tetanus Vaccination: Yes History of Influenza Vaccine for 04/2017 - 09/2017 Season: Yes Influenza Administration Date for 04/2017 - 09/2017 Season: 04/12/17 Physical Exam - Vital signs Vitals: Temp Pulse Resp BP Pulse Ox 98.8 F 112 H 24 H 134/91 H 96 08/23/18 18:58 08/23/18 18:58 08/23/18 18:58 08/23/18 18:58 08/23/18 18:58 - Respiratory Respiratory status: No respiratory distress. No: Labored Chest status: No: Tender Breath sounds: Decreased air movement, Wheezing Course - Re-evaluation Re-evalutation: I have greeted and performed a rapid initial assessment of this patient. A comprehensive ED assessment and evaluation of the patient, analysis of test results and completion of the medical decision making process will be conducted by additional ED providers. - Vital Signs Vital signs: Temp Pulse Resp BP Pulse Ox 98.8 F 112 H 24 H 134/91 H 96 08/23/18 18:58 08/23/18 18:58 08/23/18 18:58 08/23/18 18:58 08/23/18 18:58 Doctor's Discharge - Discharge Referrals: BONIFACIO MELENDEZ FNP-C [Primary Care Provider] - Follow up as needed
--- NOTE | 2018-08-23 21:05 | RADIOLOGY REPORT (SQ) ---
EXAM DESCRIPTION: XR CHEST 2 VIEWS COMPLETED DATE/TME: 08/23/2018 20:38 CLINICAL HISTORY: 57 years, Female, chills, back pain, cough COMPARISON: X-ray chest 07/26/2018 NUMBER OF VIEWS: TECHNIQUE: LIMITATIONS: None. FINDINGS: No evidence of pulmonary infiltrate or pleural effusion. The heart and mediastinum are unremarkable. Pulmonary vascularity appears normal. There is no significant change, as compared with the prior x-ray. IMPRESSION: No acute finding. copyright 2010 [employer]- All Rights Reserved
[2018-08-23 21:43] LABS: ABSOLUTE EOSINOPHILS # (AUTO) 0.2 10^3/uL (0.0-0.6); ABSOLUTE LYMPHOCYTES (AUTO) 1.6 10^3/uL (0.5-4.7); ABSOLUTE MONOCYTES (AUTO) 1.1 10^3/uL (0.1-1.4); ABSOLUTE NEUT (AUTO) 2.7 10^3/uL (1.7-8.2); BASOPHILS % (AUTO) 0.9 % (0-2); EOSINOPHILS % (AUTO) 4.3 % (0-6); HEMATOCRIT 34.6 % (36.0-47.0); HEMOGLOBIN 11.7 g/dL (12.0-15.5); LYMPHOCYTES % (AUTO) 28.6 % (13-45); MEAN CORPUSCULAR HEMOGLOBIN 26.5 pg (27.0-33.4); MEAN CORPUSCULAR HGB CONC 33.8 g/dL (32.0-36.0); MEAN CORPUSCULAR VOLUME 78 fl (80-97); MONOCYTES % (AUTO) 18.9 % (3-13); PLATELET COUNT 348 10^3/uL (150-450); RED BLOOD COUNT 4.42 10^6/uL (3.72-5.28); RED CELL DISTRIBUTION WIDTH 15.8 % (11.5-14.0); SEGMENTED NEUTROPHILS % (AUTO) 47.3 % (42-78); TOTAL CELLS COUNTED % (AUTO) 100 %; WHITE BLOOD COUNT 5.7 10^3/uL (4.0-10.5)
[2018-08-23 22:04] LABS: ALANINE AMINOTRANSFERASE 30 U/L (9-52); ALBUMIN 4.1 g/dL (3.5-5.0); ALKALINE PHOSPHATASE 91 U/L (38-126); ANION GAP 10 (5-19); ASPARTATE AMINO TRANSFERASE 22 U/L (14-36); BILIRUBIN,DIRECT 0.1 mg/dL (0.0-0.4); BILIRUBIN,TOTAL 0.5 mg/dL (0.2-1.3); BLOOD UREA NITROGEN 14 mg/dL (7-20); CALCIUM 9.4 mg/dL (8.4-10.2); CARBON DIOXIDE 28 mmol/L (22-30); CHLORIDE 105 mmol/L (98-107); GLUCOSE 99 mg/dL (75-110); POTASSIUM 3.5 mmol/L (3.6-5.0); SODIUM 142.7 mmol/L (137-145); TOTAL PROTEIN 6.5 g/dL (6.3-8.2)
[2018-08-23 22:47] LABS: A TYPE INFLUENZA AG NEGATIVE (NEGATIVE); B INFLUENZA AG NEGATIVE (NEGATIVE)
[2018-08-23 23:13] LABS: APPEARANCE,URINE CLEAR; BILIRUBIN,URINE NEGATIVE (NEGATIVE); COLOR,URINE YELLOW; GLUCOSE, URINE NEGATIVE (NEGATIVE); KETONES,URINE TRACE mg/dL (NEGATIVE); LEUKOCYTE ESTERASE,URINE SMALL (NEGATIVE); NITRITE,URINE NEGATIVE (NEGATIVE); PROTEIN,URINE NEGATIVE (NEGATIVE); URINE SPECIFIC GRAVITY 1.013; UROBILINOGEN,URINE NEGATIVE mg/dL (<2.0)
[2018-08-24] MEDS ORDERED: ONDANSETRON ODT 4 MG TAB (6 TAB/ER DISP) PO PRN (00:09)
--- NOTE | 2018-08-24 00:38 | ER Document Report ---
ED General - General Chief Complaint: Nausea/Vomiting Stated Complaint: BACK PAIN Time Seen by Provider: 08/23/18 20:32 Primary Care Provider: BONIFACIO MELENDEZ FNP-C [Primary Care Provider] - 08/25/18 Notes: Patient is a 57-year-old female presents with complaint of vomiting. She has had several episodes of vomiting yesterday. She said the vomiting has resolved but still has nausea without throughout the day today. Her nausea is now starting resolved. No chest pain. No abdominal pain. She says she does have some low back pain. She said this is actually a chronic recurring problem and not new. No new injuries. No fevers that she is aware of. No diarrhea. No bloody stools. She denies any recent new medication. No other complaints at this time. TRAVEL OUTSIDE OF THE [place] IN LAST 30 DAYS: No - Related Data Allergies/Adverse Reactions: benzonatate [From [employer]] Allergy (Verified 08/20/18 10:01) RCING HEARTBEART NSAIDS (Non-Steroidal Anti-Inflamma Allergy (Verified 08/20/18 10:01) RACING HEARTBEAT Past Medical History - Social History Smoking Status: Former Smoker Chew tobacco use (# tins/day): No Frequency of alcohol use: None Drug Abuse: None Family History: COPD, DM, Hypertension Patient has suicidal ideation: No Patient has homicidal ideation: No - Past Medical History Cardiac Medical History: Reports: Hx Hypertension Denies: Hx Atrial Fibrillation, Hx Coronary Artery Disease, Hx DVT, Hx Pulmonary Embolism Pulmonary Medical History: Reports: Hx Asthma, Hx Bronchitis, Hx COPD, Hx Pneumonia, Hx Respiratory Failure Denies: Hx Intubation Neurological Medical History: Denies: Hx Seizures Endocrine Medical History: Reports: Hx Diabetes Mellitus Type 2. Denies: Hx Diabetes Mellitus Type 1, Hx Hyperthyroidism, Hx Hypothyroidism Renal/ Medical History: Denies: Hx Peritoneal Dialysis GI Medical History: Denies: Hx Cirrhosis, Hx Gastroesophageal Reflux Disease, Hx Hepatitis Musculoskeletal Medical History: Reports Hx Arthritis, Denies Hx Gout Skin Medical History: Denies Hx Eczema, Denies Hx Psoriasis Psychiatric Medical History: Denies: Hx Depression Infectious Medical History: Denies: Hx Hepatitis - Immunizations Hx Diphtheria, Pertussis, Tetanus Vaccination: Yes Review of Systems - Review of Systems Notes: My Normal Review Basic REVIEW OF SYSTEMS: CONSTITUTIONAL : Denies fever, chills, or sweats. Denies recent illness. EENT: Denies eye, ear, throat, or mouth pain or symptoms. Denies nasal or sinus congestion. CARDIOVASCULAR: Denies chest pain. RESPIRATORY: Denies cough, cold, or chest congestion. Denies shortness of breath, difficulty breathing, or wheezing. GASTROINTESTINAL: Denies abdominal pain. Nausea and vomiting GENITOURINARY: Denies difficulty urinating, painful urination, burning, frequency, or blood in urine. MUSCULOSKELETAL: Back pain SKIN: Denies rash or skin lesions. NEUROLOGICAL: Denies altered mental status or loss of consciousness. Denies headache. Denies weakness or paralysis or loss of use of either side. Denies problems with gait or speech. Denies sensory or motor loss. ALL OTHER SYSTEMS REVIEWED AND NEGATIVE. Physical Exam - Vital signs Vitals: Temp Pulse Resp BP Pulse Ox 98.8 F 112 H 24 H 134/91 H 96 08/23/18 18:58 08/23/18 18:58 08/23/18 18:58 08/23/18 18:58 08/23/18 18:58 - Notes Notes: General Appearance: Well nourished, alert, cooperative, no acute distress, no obvious discomfort. Well appearing. Vitals: reviewed, See vital signs table. Head: no swelling or tenderness to the head Eyes: PERRL, EOMI, Conjuctiva clear Mouth: No decreasd moisture Throat: No tonsillar inflammation, No airway obstruction, No lymphadenopathy Lungs: No wheezing, No rales, No rhonci, No accessory muscle use, good air excha nge bilaterally. Heart: Normal rate, Regular rythm, No murmur, no rub Abdomen: Normal BS, soft, No rigidity, No abdominal tenderness, No guarding, no rebound, no abdominal masses, no organomegaly Back: Some mild pain to palpation over the right and left lumbar paraspinal musculature. Extremities: strength 5/5 in all extremities, good pulses in all extremities, no swelling or tenderness in the extremities, no edema. Skin: warm, dry, appropriate color, no rash Neuro: speech clear, oriented x 3, normal affect, responds appropriately to questions. Course - Re-evaluation Re-evalutation: 08/24/18 01:38 Patient says that her back pain is actually chronic and not new. It is reduced to palpation. She denies any new injuries. Suspect he probably has muscle skeletal. She has no social abdominal pain. She did have the vomiting yesterday. I therefore did do an EKG and cardiac enzymes. She denies any associated chest pain and her EKG and troponin are negative and therefore I do not think she needs to stay for any form of ACS rule out. Patient says she is feeling much improved. She is no longer nauseous. She has no reproducible pain palpation of her abdomen. Her vital signs have normalized. I feel she safe to be discharged home. I strongly encouraged her to return to ER if she has recurrent vomiting, any abdominal pain, any chest pain, worsening back pain, or if she feels unwell. Patient agrees with plan and will be discharged home. Dictation of this chart was performed using voice recognition software; th erefore, there may be some unintended grammatical errors. - Vital Signs Vital signs: Temp Pulse Resp BP Pulse Ox 98.8 F 112 H 20 120/71 99 08/23/18 18:58 08/23/18 18:58 08/23/18 23:00 08/23/18 22:01 08/23/18 23:00 - Laboratory Result Diagrams: 08/23/18 21:25 08/23/18 21:25 Laboratory results interpreted by me: 08/23/18 08/23/18 08/23/18 21:25 21:25 22:55 Hgb 11.7 L Hct 34.6 L MCV 78 L MCH 26.5 L RDW 15.8 H Monocytes % 18.9 H Potassium 3.5 L Urine Ketones TRACE H Urine Blood SMALL H Ur Leukocyte Esterase SMALL H - EKG Interpretation by Me Additional EKG results interpreted by me: 08/24/18 00:37 EKG is reviewed and interpreted by me. EKG shows sinus rhythm with rate of [address] segment elevation or depression. No ischemic T wave inversions. IA interval, QRS duration, QT intervals are within normal range. Old EKG for comparison is from July 26 2018. Discharge - Discharge Clinical Impression: Vomiting Qualifiers: Vomiting type: unspecified Vomiting Intractability: unspecified Nausea presence: with nausea Qualified Code(s): R11.2 - Nausea with vomiting, unspecified Back pain Qualifiers: Back pain location: low back pain Chronicity: chronic Back pain laterality: b ilateral Sciatica presence: without sciatica Qualified Code(s): M54.5 - Low back pain Condition: Good Disposition: HOME, SELF-CARE Additional Instructions: Your workup does not show any concerning findings. I will send you home with some nausea medicine called Neville to help with your nausea and vomiting. Please take Tylenol for your back pain. Please follow-up with your doctor in 2- 3 days for reevaluation. Return to ER immediately if you have any fevers, abdominal pain, chest pain, or if you feel that you are worsening in any way. Prescriptions: Ondansetron [Zofran Odt 4 mg Tablet] 1 tab PO Q4H PRN #10 tab.rapdis PRN Reason: For Nausea/Vomiting Referrals: BONIFACIO MELENDEZ FNP-C [Primary Care Provider] - 08/25/18
[2018-08-24 01:40] VITALS: BP 131/66
--- NOTE | 2018-08-24 18:00 | EKG REPORT ---
SEVERITY:- BORDERLINE ECG - SINUS RHYTHM PROBABLE LEFT ATRIAL ABNORMALITY : Confirmed by: Pennie Wilde MD 24-Aug-2018 18:00:15
== END 2018-08-24 01:46 | disposition home or self-care (01) ==
LOC: ER 18:43
DX: R11.2 Nausea with vomiting, unspecified (principal); M54.5 Low back pain; Z87.891 Personal history of nicotine dependence; I10 Essential (primary) hypertension; E11.9 Type 2 diabetes mellitus without complications
CPT/HCPCS: 93005; 94640; 99284; 36415; 85025; 80053; 81001; 84484; 87804; 71046; 93010; J7620

== ENCOUNTER 2018-08-31 08:47 | Emergency (ER) | payer MEDICAID ==
[2018-08-31 08:55] VITALS: BP 97/78
[2018-08-31] MEDS ORDERED: FAMOTIDINE INJ/PF 20 MG/2 ML SDV IV ONE (09:25)
[2018-08-31] MEDS ORDERED: ONDANSETRON HCL INJ/PF 4 MG/2 ML SDV IV ONE (09:25)
[2018-08-31] MEDS ORDERED: RINGERS SOLUTION,LACTATED 1,000 ML IV ONE (09:27)
--- NOTE | 2018-08-31 09:27 | ER Document Report ---
ED Medical Screen (RME) - General Chief Complaint: Abdominal Pain Stated Complaint: SHORT OF BREATH/ABDOMINAL PAIN Time Seen by Provider: 08/31/18 09:21 Primary Care Provider: BONIFACIO MELENDEZ FNP-C [Primary Care Provider] - Follow up as needed Mode of Arrival: Ambulatory Information source: Patient Notes: 57-year-old female presents with complaint of nausea, vomiting and diarrhea that started 3 days prior to arrival. I have greeted and performed a rapid initial assessment of this patient. A comprehensive ED assessment and evaluation of the patient, analysis of test results and completion of medical decision making process we will be contacted by additional ED providers. PHYSICAL EXAMINATION: Vital signs reviewed GENERAL: Well-appearing, well-nourished and in no acute distress. LUNGS: No respiratory distress Musculoskeletal: Normal range of motion NEUROLOGICAL: Normal speech, normal gait. PSYCH: Normal mood, normal affect. SKIN: Warm, Dry, normal turgor, no rashes or lesions noted. TRAVEL OUTSIDE OF THE [place] IN LAST 30 DAYS: No - HPI Onset: Other Onset/Duration: Persistent Quality of pain: Cramping Severity: Mild Associated Symptoms: Diarrhea, Nausea Exacerbated by: Food Relieved by: Denies Similar symptoms previously: Yes Recently seen / treated by doctor: No - Related Data Smoking: Non-smoker Frequency of alcohol use: None Drug Abuse: None Allergies/Adverse Reactions: benzonatate [From Tessalon Perles] Allergy (Verified 08/20/18 10:01) RCING HEARTBEART NSAIDS (Non-Steroidal Anti-Inflamma Allergy (Verified 08/20/18 10:01) RACING HEARTBEAT Past Medical History - Social History Chew tobacco use (# tins/day): No Frequency of alcohol use: None Drug Abuse: None - Past Medical History Cardiac Medical History: Reports: Hx Hypertension Denies: Hx Atrial Fibrillation, Hx Coronary Artery Disease, Hx DVT, Hx Pulmonary Embolism Pulmonary Medical History: Reports: Hx Asthma, Hx Bronchitis, Hx COPD, Hx Pneumonia, Hx Respiratory Failure Denies: Hx Intubation Neurological Medical History: Denies: Hx Seizures Endocrine Medical History: Reports: Hx Diabetes Mellitus Type 2. Denies: Hx Diabetes Mellitus Type 1, Hx Hyperthyroidism, Hx Hypothyroidism Renal/ Medical History: Denies: Hx Peritoneal Dialysis GI Medical History: Denies: Hx Cirrhosis, Hx Gastroesophageal Reflux Disease, Hx Hepatitis Musculoskeltal Medical History: Reports Hx Arthritis, Denies Hx Gout Skin Medical History: Denies Hx Eczema, Denies Hx Psoriasis Psychiatric Medical History: Denies: Hx Depression Infectious Medical History: Denies: Hx Hepatitis - Immunizations Hx Diphtheria, Pertussis, Tetanus Vaccination: Yes History of Influenza Vaccine for 04/2017 - 09/2017 Season: Yes Influenza Administration Date for 04/2017 - 09/2017 Season: 04/12/17 Physical Exam - Vital signs Vitals: Temp Pulse Resp BP Pulse Ox 97.6 F 99 20 97/78 L 96 08/31/18 08:53 08/31/18 08:53 08/31/18 08:53 08/31/18 08:53 08/31/18 08:53 Course - Vital Signs Vital signs: Temp Pulse Resp BP Pulse Ox 97.6 F 99 20 97/78 L 96 08/31/18 08:53 08/31/18 08:53 08/31/18 08:53 08/31/18 08:53 08/31/18 08:53 Doctor's Discharge - Discharge Referrals: BONIFACIO MELENDEZ FNP-C [Primary Care Provider] - Follow up as needed
[2018-08-31 09:53] LABS: MEAN CORPUSCULAR HEMOGLOBIN 26.6 pg (27.0-33.4); MEAN CORPUSCULAR HGB CONC 34.4 g/dL (32.0-36.0); MEAN CORPUSCULAR VOLUME 78 fl (80-97); PLATELET COUNT 398 10^3/uL (150-450); RED BLOOD COUNT 4.51 10^6/uL (3.72-5.28); RED CELL DISTRIBUTION WIDTH 15.4 % (11.5-14.0); WHITE BLOOD COUNT 9.6 10^3/uL (4.0-10.5)
[2018-08-31 10:10] LABS: ALANINE AMINOTRANSFERASE 21 U/L (9-52); ALBUMIN 4.2 g/dL (3.5-5.0); ALKALINE PHOSPHATASE 84 U/L (38-126); ANION GAP 8 (5-19); ASPARTATE AMINO TRANSFERASE 15 U/L (14-36); BILIRUBIN,DIRECT 0.2 mg/dL (0.0-0.4); BILIRUBIN,TOTAL 0.5 mg/dL (0.2-1.3); BLOOD UREA NITROGEN 11 mg/dL (7-20); CALCIUM 9.5 mg/dL (8.4-10.2); CARBON DIOXIDE 30 mmol/L (22-30); CHLORIDE 106 mmol/L (98-107); GLUCOSE 124 mg/dL (75-110); LIPASE 101.7 U/L (23-300); POTASSIUM 3.9 mmol/L (3.6-5.0); SODIUM 144.2 mmol/L (137-145); TOTAL PROTEIN 6.7 g/dL (6.3-8.2)
[2018-08-31 10:15] LABS: ABSOLUTE LYMPHOCYTES# (MANUAL) 1.3 10^3/uL (0.5-4.7); ABSOLUTE MONOCYTES # (MANUAL) 0.2 10^3/uL (0.1-1.4); BASOPHILS % (MANUAL) 0 % (0-2); LYMPHOCYTES % (MANUAL) 12 % (13-45); MONOCYTES % (MANUAL) 2 % (3-13); TOTAL CELLS COUNTED 100
[2018-08-31 10:19] LABS: ANISOCYTOSIS SLIGHT; HYPOCHROMASIA SLIGHT; PLATELET COMMENT ADEQUATE; POLYCHROMASIA SLIGHT; TOXIC GRANULATION SLIGHT; TOXIC VACUOLATION PRESENT
[2018-08-31 10:21] LABS: ABSOLUTE NEUTROPHILS# (MANUAL) 7.9 10^3/uL (1.7-8.2); EOSINOPHILS % (MANUAL) 2 % (0-6); MYELOCYTES % (MANUAL) 1 % (0); SEGMENTED NEUTROPHILS % (MAN) 81 % (42-78)
--- NOTE | 2018-08-31 10:29 | ER Document Report ---
ED General - General Chief Complaint: Abdominal Pain Stated Complaint: SHORT OF BREATH/ABDOMINAL PAIN Time Seen by Provider: 08/31/18 09:21 Primary Care Provider: BONIFACIO MELENDEZ FNP-C [Primary Care Provider] - Follow up as needed Mode of Arrival: Ambulatory Notes: 57-year-old female presents with nausea vomiting and diarrhea. Patient stated this is been going on for the last several days. Patient stated she is vomited at least 3-4 times a day. No coffee-ground emesis no black bloody or tarry stools. Patient has had several loose stools. More watery than not. She has a history of asthma and COPD and is having mild shortness of breath which is her norm. She denies any chest pain. She has had chills but denies fever. States her throat feels a little raw but otherwise is not sore. She denies runny nose or congestion. She has had other sick contacts. TRAVEL OUTSIDE OF THE [place] IN LAST 30 DAYS: No - Related Data Allergies/Adverse Reactions: benzonatate [From TessalOrigami Labsjoe] Allergy (Verified 08/20/18 10:01) RCING HEARTBEART NSAIDS (Non-Steroidal Anti-Inflamma Allergy (Verified 08/20/18 10:01) RACING HEARTBEAT Past Medical History - General Information source: Patient - Social History Smoking Status: Never Smoker Chew tobacco use (# tins/day): No Frequency of alcohol use: None Drug Abuse: None Family History: COPD, DM, Hypertension Patient has suicidal ideation: No Patient has homicidal ideation: No - Past Medical History Cardiac Medical History: Reports: Hx Hypertension Denies: Hx Atrial Fibrillation, Hx Coronary Artery Disease, Hx DVT, Hx Pulmonary Embolism Pulmonary Medical History: Reports: Hx Asthma, Hx Bronchitis, Hx COPD, Hx Pneumonia, Hx Respiratory Failure Denies: Hx Intubation Neurological Medical History: Denies: Hx Seizures Endocrine Medical History: Reports: Hx Diabetes Mellitus Type 2. Denies: Hx D iabetes Mellitus Type 1, Hx Hyperthyroidism, Hx Hypothyroidism Renal/ Medical History: Denies: Hx Peritoneal Dialysis GI Medical History: Denies: Hx Cirrhosis, Hx Gastroesophageal Reflux Disease, Hx Hepatitis Musculoskeletal Medical History: Reports Hx Arthritis, Denies Hx Gout Skin Medical History: Denies Hx Eczema, Denies Hx Psoriasis Psychiatric Medical History: Denies: Hx Depression Infectious Medical History: Denies: Hx Hepatitis - Immunizations Hx Diphtheria, Pertussis, Tetanus Vaccination: Yes Review of Systems - Review of Systems Constitutional: Chills. denies: Fever Gastrointestinal: Abdominal pain, Diarrhea, Nausea, Vomiting Neurological/Psychological: denies: Headaches -: Yes All other systems reviewed and negative Physical Exam - Vital signs Vitals: Temp Pulse Resp BP Pulse Ox 97.6 F 99 20 97/78 L 96 08/31/18 08:53 08/31/18 08:53 08/31/18 08:53 08/31/18 08:53 08/31/18 08:53 - Notes Notes: GENERAL_APPEARANCE: well_nourished, alert, cooperative, no_acute_distress, no_obvious_discomfort. VITALS: reviewed, see vital signs table. HEAD: no_swelling\tenderness on the head. EYES: PERRL, EOMI, conjunctiva_clear. NOSE: no_nasal_discharge. MOUTH: (-)decreased moisture. THROAT: no_tonsilar_inflammation, no_airway_obstruction. no_lymphadenopathy NECK: supple, no_neck_tenderness, (-)thyromegaly. BACK: no_back_tenderness. CHEST_WALL: no_chest_tenderness. LUNGS: Scant_wheezing, no_rales, no_rhonchi, (-)accessory muscle use, good air exchange bilateral. HEART: normal_rate, normal_rhythm, normal_S1, normal_S2, (-)S3, (-)S4, no_murmur, no_rub. ABDOMEN: normal_BS, soft, gastric_abd_tenderness, (-)guarding, (-)rebound, no_organomegaly, no_abd_masses. EXTREMITIES: good pulses in all_extremities, no_swelling\tenderness in the extremities, no_edema. SKIN: warm, dry, good_color, no purpura petechiae MENTAL_STATUS: speech_clear, oriented_X_3, normal_affect, responds_appropriately to questions. Course - Re-evaluation Re-evalutation: 08/31/18 10:29 57-year-old female presents to the emergency department with nausea vomiting diarrhea and some abdominal discomfort. Will scan the abdomen. Give her IV fluids and nausea medicine. 08/31/18 14:16 CT scan of blood is very reassuring and no significant abnormalities noted pat ient felt much better after IV fluids and nausea medicine. We will send her home with some nausea medicine repeat abdominal exam shows soft supple abdomen without focal tenderness no acute surgical abdomen is noted. Patient is comfortable going home. Patient did receive a breathing treatment here she has known COPD. And felt much better afterwards. - Vital Signs Vital signs: Temp Pulse Resp BP Pulse Ox 97.6 F 99 20 97/78 L 96 08/31/18 08:53 08/31/18 08:53 08/31/18 08:53 08/31/18 08:53 08/31/18 08:53 - Laboratory Result Diagrams: 08/31/18 09:36 08/31/18 09:36 Laboratory results interpreted by me: 08/31/18 08/31/18 09:36 09:36 Hct 35.0 L MCV 78 L MCH 26.6 L RDW 15.4 H Seg Neuts % (Manual) 81 H Lymphocytes % (Manual) 12 L Monocytes % (Manual) 2 L Myelocytes % 1 H Glucose 124 H - Diagnostic Test Radiology reviewed: Reports reviewed Radiology results interpreted by me: 08/31/18 14:15 Abdomen/Pelvis CT 08/31/18 10:26 IMPRESSION: 1. COLONIC DIVERTICULOSIS. NO CT FINDINGS OF ACUTE DIVERTICULITIS. 2. HEPATIC AND RENAL CYSTS. 3. NO OTHER SIGNIFICANT OR ACUTE PROCESS IN THE ABDOMEN OR PELVIS. Discharge - Discharge Clinical Impression: Vomiting Qualifiers: Vomiting type: unspecified Vomiting Intractability: non-intractable Nausea presence: with nausea Qualified Code(s): R11.2 - Nausea with vomiting, unspecified Condition: Good Disposition: HOME, SELF-CARE Instructions: Antinausea Medication ([facility]), Vomiting ([facility]) Additional Instructions: Please take the Zofran as indicated if worse or not improving return to the ER Prescriptions: Ondansetron [Zofran Odt 4 mg Tablet] 1 - 2 tab PO Q4H PRN #15 tab.rapdis PRN Reason: For Nausea/Vomiting Referrals: BONIFACIO MELENDEZ FNP-C [Primary Care Provider] - Follow up as needed
--- NOTE | 2018-08-31 11:05 | RADIOLOGY REPORT (SQ) ---
EXAM DESCRIPTION: CT ABD/PELVIS NO ORAL OR IV COMPLETED DATE/TIME: 08/31/2018 10:49 am REASON FOR STUDY: abd pain COMPARISON: None. TECHNIQUE: CT scan of the abdomen and pelvis performed without intravenous or oral contrast. Images reviewed with lung, soft tissue, and bone windows. Reconstructed coronal and sagittal MPR images revi ewed. All images stored on PACS. All CT scanners at this facility use dose modulation, iterative reconstruction, and/or weight based d osing when appropriate to reduce radiation dose to as low as reasonably achievable (ALARA). [facility]: Dose Right [facility]: CareDose [facility]: Dose Right [facility]: Teradose 4D [facility]: Smart [employer] RADIATION DOSE: CT Rad equipment meets quality standard of care and radiation dose reduction techniq ues were employed. CTDIvol: 7.1 mGy. DLP: 368 mGy-cm.mGy. LIMITATIONS: Motion artifact. FINDINGS: LOWER CHEST: No significant findings. No nodules or infiltrates. NON-CONTRASTED LIVER, SPLEEN, ADRENALS: Evaluation limited by lack of IV contrast. Hepatic cysts, th e largest measuring 5 cm. No identified significant masses. PANCREAS: No masses. No peripancreatic inflammatory changes. GALLBLADDER: No identified stones by CT criteria. No inflammatory changes to suggest cholecystitis. RIGHT KIDNEY AND URETER: 3 cm cortical cyst. No suspicious masses. Assessment limited by lack of IV contrast. No significant calcifications. No hydronephrosis or hydroureter. LEFT KIDNEY AND URETER: No suspicious masses. Assessment limited by lack of IV contrast. No signifi cant calcifications. No hydronephrosis or hydroureter. AORTA AND RETROPERITONEUM: No aneurysm. No retroperitoneal masses or adenopathy. BOWEL AND PERITONEAL CAVITY: Colonic diverticulosis. No obvious masses or inflammatory changes. No f ree fluid. APPENDIX: Not visualized. PELVIS, BLADDER, AND ABDOMINAL WALL:No abnormal masses. No free fluid. Bladder normal. BONES: No significant findings. OTHER: No other significant finding. IMPRESSION: 1. COLONIC DIVERTICULOSIS. NO CT FINDINGS OF ACUTE DIVERTICULITIS. 2. HEPATIC AND RENAL CYSTS. 3. NO OTHER SIGNIFICANT OR ACUTE PROCESS IN THE ABDOMEN OR PELVIS. COMMENT: Quality ID # [id number]: Final reports with documentation of one or more dose reduction techniques (e.g., Automated exposure control, adjustment of the mA and/or kV according to patient size, use of iterative reconstruction technique) TECHNICAL DOCUMENTATION: JOB ID: [id number] [employer]- All Rights Reserved Reading location - IP/workstation name: [email or web address]
[2018-08-31] MEDS ORDERED: IPRATROPIUM/ALBUTEROL 0.5-2.5 MG/3 ML AMPUL NEB ONE (12:18)
[2018-08-31 13:14] LABS: APPEARANCE,URINE CLEAR; BILIRUBIN,URINE NEGATIVE (NEGATIVE); COLOR,URINE YELLOW; GLUCOSE, URINE NEGATIVE (NEGATIVE); KETONES,URINE NEGATIVE (NEGATIVE); LEUKOCYTE ESTERASE,URINE NEGATIVE (NEGATIVE); NITRITE,URINE NEGATIVE (NEGATIVE); PROTEIN,URINE NEGATIVE (NEGATIVE); UROBILINOGEN,URINE NEGATIVE mg/dL (<2.0)
== END 2018-08-31 14:58 | disposition home or self-care (01) ==
LOC: ER 08:47
DX: R11.2 Nausea with vomiting, unspecified (principal); R19.7 Diarrhea, unspecified; R10.9 Unspecified abdominal pain; R68.83 Chills (without fever); I10 Essential (primary) hypertension; E11.9 Type 2 diabetes mellitus without complications
CPT/HCPCS: 94640; 99284; 96361; 96374; 96375; 36415; 83690; 85025; 80053; 81001; 74176; J2405; J7120; S0028; J7620

== ENCOUNTER 2018-09-02 11:40 | Emergency (ER) | payer MEDICAID ==
[2018-09-02] MEDS ORDERED: NORMAL SALINE 1000 ML 1,000 ML IV ONE ×2 (12:31→16:23)
--- NOTE | 2018-09-02 12:31 | ER Document Report ---
ED Medical Screen (RME) - General Chief Complaint: Nausea/Vomiting/Diarrhea Stated Complaint: SHORTNESS OF BREATH Time Seen by Provider: 09/02/18 12:30 Primary Care Provider: BONIFACIO MELENDEZ FNP-C [Primary Care Provider] - Follow up as needed Notes: Patient is a 57-year-old female that presents to the emergency department for chief complaint of nausea, vomiting and diarrhea. Patient was seen this past Thursday, for similar symptoms they progressed, and not gotten any better despite treatments. ROS: Other than noted above, the 12 point review of systems was reviewed with the patient and were negative, all pertinent findings are included in the HPI. PHYSICAL EXAMINATION: Vital signs reviewed. GENERAL: Well-appearing, well-nourished and in no acute distress. HEAD: Atraumatic, normocephalic. EYES: Pupils equal round extraocular movements intact, conjunctiva are normal. ENT: Nares patent NECK: Normal range of motion CV: Heart regular rate and rhythm LUNGS: No respiratory distress Musculoskeletal: Normal range of motion NEUROLOGICAL: Normal speech PSYCH: Normal mood, normal affect. MDM: Patient seen and examined for rapid initial assessment. Vital signs reviewed. A comprehensive ED assessment and evaluation of the patient, analysis of test results and completion of the medical decision making process will be conducted by additional ED providers. *Note is created using voice recognition software and may contain spelling, syntax or grammatical errors. TRAVEL OUTSIDE OF THE [place] IN LAST 30 DAYS: No - Related Data Allergies/Adverse Reactions: benzonatate [From Tessalon Perles] Allergy (Verified 08/20/18 10:01) RCING HEARTBEART NSAIDS (Non-Steroidal Anti-Inflamma Allergy (Verified 08/20/18 10:01) RACING HEARTBEAT Past Medical History - Past Medical History Cardiac Medical History: Reports: Hx Hypertension Denies: Hx Atrial Fibrillation, Hx Coronary Artery Disease, Hx DVT, Hx Pulmonary Embolism Pulmonary Medical History: Reports: Hx Asthma, Hx Bronchitis, Hx COPD, Hx Pneumonia, Hx Respiratory Failure Denies: Hx Intubation Neurological Medical History: Denies: Hx Seizures Endocrine Medical History: Reports: Hx Diabetes Mellitus Type 2. Denies: Hx Diabetes Mellitus Type 1, Hx Hyperthyroidism, Hx Hypothyroidism Renal/ Medical History: Denies: Hx Peritoneal Dialysis GI Medical History: Denies: Hx Cirrhosis, Hx Gastroesophageal Reflux Disease, Hx Hepatitis Musculoskeltal Medical History: Reports Hx Arthritis, Denies Hx Gout Skin Medical History: Denies Hx Eczema, Denies Hx Psoriasis Psychiatric Medical History: Denies: Hx Depression Infectious Medical History: Denies: Hx Hepatitis - Immunizations Hx Diphtheria, Pertussis, Tetanus Vaccination: Yes History of Influenza Vaccine for 04/2017 - 09/2017 Season: Yes Influenza Administration Date for 04/2017 - 09/2017 Season: 04/12/17 Physical Exam - Vital signs Vitals: Temp Pulse Resp BP Pulse Ox 97.4 F 101 H 18 101/53 L 94 09/02/18 11:50 09/02/18 11:50 09/02/18 11:50 09/02/18 11:50 09/02/18 11:50 Course - Vital Signs Vital signs: Temp Pulse Resp BP Pulse Ox 97.4 F 101 H 18 101/53 L 94 09/02/18 11:50 09/02/18 11:50 09/02/18 11:50 09/02/18 11:50 09/02/18 11:50 Doctor's Discharge - Discharge Referrals: BONIFACIO MELENDEZ FNP-C [Primary Care Provider] - Follow up as needed
[2018-09-02] MEDS ORDERED: PROMETHAZINE HCL INJ 25 MG/1 ML VIAL IV ONE (12:32)
[2018-09-02 13:20] LABS: ABSOLUTE BASOPHILS # (AUTO) 0.1 10^3/uL (0.0-0.2); ABSOLUTE EOSINOPHILS # (AUTO) 0.4 10^3/uL (0.0-0.6); ABSOLUTE LYMPHOCYTES (AUTO) 1.7 10^3/uL (0.5-4.7); ABSOLUTE MONOCYTES (AUTO) 0.8 10^3/uL (0.1-1.4); ABSOLUTE NEUT (AUTO) 10.8 10^3/uL (1.7-8.2); BASOPHILS % (AUTO) 0.6 % (0-2); EOSINOPHILS % (AUTO) 2.7 % (0-6); HEMATOCRIT 36.9 % (36.0-47.0); HEMOGLOBIN 12.4 g/dL (12.0-15.5); LYMPHOCYTES % (AUTO) 12.1 % (13-45); MEAN CORPUSCULAR HEMOGLOBIN 26.2 pg (27.0-33.4); MEAN CORPUSCULAR HGB CONC 33.6 g/dL (32.0-36.0); MEAN CORPUSCULAR VOLUME 78 fl (80-97); PLATELET COUNT 443 10^3/uL (150-450); RED BLOOD COUNT 4.72 10^6/uL (3.72-5.28); RED CELL DISTRIBUTION WIDTH 15.4 % (11.5-14.0); SEGMENTED NEUTROPHILS % (AUTO) 78.6 % (42-78); TOTAL CELLS COUNTED % (AUTO) 100 %; WHITE BLOOD COUNT 13.7 10^3/uL (4.0-10.5)
[2018-09-02 13:27] LABS: APPEARANCE,URINE SLIGHTLY-CLOUDY; BILIRUBIN,URINE NEGATIVE (NEGATIVE); COLOR,URINE YELLOW; GLUCOSE, URINE NEGATIVE (NEGATIVE); KETONES,URINE 20 mg/dL (NEGATIVE); LEUKOCYTE ESTERASE,URINE TRACE (NEGATIVE); NITRITE,URINE NEGATIVE (NEGATIVE); PROTEIN,URINE NEGATIVE (NEGATIVE); URINE SPECIFIC GRAVITY 1.018; UROBILINOGEN,URINE NEGATIVE mg/dL (<2.0)
[2018-09-02 13:43] LABS: ALANINE AMINOTRANSFERASE 23 U/L (9-52); ALBUMIN 4.2 g/dL (3.5-5.0); ALKALINE PHOSPHATASE 94 U/L (38-126); ANION GAP 11 (5-19); ASPARTATE AMINO TRANSFERASE 17 U/L (14-36); BILIRUBIN,DIRECT 0.2 mg/dL (0.0-0.4); BILIRUBIN,TOTAL 0.6 mg/dL (0.2-1.3); BLOOD UREA NITROGEN 13 mg/dL (7-20); CALCIUM 9.3 mg/dL (8.4-10.2); CARBON DIOXIDE 31 mmol/L (22-30); CHLORIDE 103 mmol/L (98-107); GLUCOSE 98 mg/dL (75-110); LIPASE 91.7 U/L (23-300); POTASSIUM 3.6 mmol/L (3.6-5.0); SODIUM 145.2 mmol/L (137-145); TOTAL PROTEIN 6.7 g/dL (6.3-8.2)
--- NOTE | 2018-09-02 13:47 | RADIOLOGY REPORT (SQ) ---
EXAM DESCRIPTION: CHEST 2 VIEWS COMPLETED DATE/TIME: 09/02/2018 12:45 pm REASON FOR STUDY: short of breath COMPARISON: 08/23/2018 EXAM PARAMETERS: NUMBER OF VIEWS: two views TECHNIQUE: Digital Frontal and Lateral radiographic views of the chest acquired. RADIATION DOSE: NA LIMITATIONS: none FINDINGS: LUNGS AND PLEURA: No opacities, masses or pneumothorax. No pleural effusion. MEDIASTINUM AND HILAR STRUCTURES: No masses or contour abnormalities. HEART AND VASCULAR STRUCTURES: Heart normal size. No evidence for failure. BONES: No acute findings. HARDWARE: None in the chest. OTHER: No other significant finding. IMPRESSION: NO ACUTE RADIOGRAPHIC FINDING IN THE CHEST. TECHNICAL DOCUMENTATION: JOB ID: [id number] [employer]- All Rights Reserved Reading location - IP/workstation name: [email or web address]
[2018-09-02] MEDS ORDERED: IPRATROPIUM/ALBUTEROL 0.5-2.5 MG/3 ML AMPUL NEB ONE (15:26)
[2018-09-02] MEDS ORDERED: PREDNISONE 20 MG TABLET PO ONE (15:26)
[2018-09-02] MEDS ORDERED: ALBUTEROL SULFATE 0.083% NEB 2.5 MG/3 ML AMPUL NEB ONE (16:23)
--- NOTE | 2018-09-02 16:25 | ER Document Report ---
ED General - General Chief Complaint: Nausea/Vomiting/Diarrhea Stated Complaint: SHORTNESS OF BREATH Time Seen by Provider: 09/02/18 12:30 Primary Care Provider: BONIFACIO MELENDEZ FNP-C [Primary Care Provider] - Follow up tomorrow Mode of Arrival: Ambulatory Information source: Patient Notes: Patient presents with a one-week history of intermittent nausea vomiting unruly rrhea. Patient was seen here recently for the same complaint 2 days ago. Patient was given a prescription for Zofran but did not take the medication today. Patient states she came in today because she had both vomiting and diarrhea at the same time which got her concerned. Patient states she has had intermittent abdominal pain as well. Patient states that she does have shortness of breath due to her COPD but felt like it seemed to be worse today which also got her concerned. Patient denies any fever. Patient denies any blood in her emesis or in her stool. Patient denies any chest pain or back pain. TRAVEL OUTSIDE OF THE [place] IN LAST 30 DAYS: No - HPI Onset: Last week Onset/Duration: Worse Quality of pain: Achy Pain Level: 2 Associated symptoms: Productive cough, Diarrhea, Nausea, Vomiting, Shortness of breath. denies: Chest pain, Fever Exacerbated by: Denies Relieved by: Denies Similar symptoms previously: Yes Recently seen / treated by doctor: Yes - Related Data Allergies/Adverse Reactions: benzonatate [From Tessalon Perljoe] Allergy (Verified 08/20/18 10:01) RCING HEARTBEART NSAIDS (Non-Steroidal Anti-Inflamma Allergy (Verified 08/20/18 10:01) RACING HEARTBEAT Past Medical History - General Information source: Patient - Social History Smoking Status: Former Smoker Chew tobacco use (# tins/day): No Frequency of alcohol use: None Drug Abuse: None Occupation: None Lives with: Family Family History: COPD, DM, Hypertension Patient has suicidal ideation: No Patient has homicidal ideation: No - Past Medical History Cardiac Medical History: Reports: Hx Hypertension Pulmonary Medical History: Reports: Hx Asthma, Hx Bronchitis, Hx COPD, Hx Pneumonia, Hx Respiratory Failure Endocrine Medical History: Reports: Hx Diabetes Mellitus Type 2 Renal/ Medical History: Denies: Hx Peritoneal Dialysis Musculoskeletal Medical History: Reports Hx Arthritis Skin Medical History: Denies Hx Eczema, Denies Hx Psoriasis Infectious Medical History: Denies: Hx Hepatitis Surgical Hx: Negative - Immunizations Hx Diphtheria, Pertussis, Tetanus Vaccination: Yes Review of Systems - Review of Systems Constitutional: No symptoms reported. denies: Fever EENT: No symptoms reported Cardiovascular: No symptoms reported. denies: Chest pain Respiratory: Cough, Short of breath, Sputum Gastrointestinal: Abdominal pain, Diarrhea, Nausea, Vomiting. denies: Blood streaked bowels, Black stools, Rectal bleeding Genitourinary: No symptoms reported. denies: Dysuria Female Genitourinary: No symptoms reported Musculoskeletal: No symptoms reported Skin: No symptoms reported Hematologic/Lymphatic: No symptoms reported Neurological/Psychological: No symptoms reported Physical Exam - Vital signs Vitals: Temp Pulse Resp BP Pulse Ox 97.4 F 101 H 18 101/53 L 94 09/02/18 11:50 09/02/18 11:50 09/02/18 11:50 09/02/18 11:50 09/02/18 11:50 - General General appearance: Appears well, Alert In distress: None - HEENT Head: Normocephalic, Atraumatic Eyes: Normal Conjunctiva: Normal Nasal: Normal Mouth/Lips: Normal Mucous membranes: Normal Pharynx: Normal Neck: Normal, Supple. No: Lymphadenopathy - Respiratory Respiratory status: No respiratory distress Chest status: Nontender Breath sounds: Nonproductive cough, Rhonchi, Wheezing Chest palpation: Normal - Cardiovascular Rhythm: Tachycardia Heart sounds: S1 appreciated, S2 appreciated Murmur: No - Abdominal Inspection: Obese Distension: No distension Bowel sounds: Normal Tenderness: Nontender Organomegaly: No organomegaly - Back Back: Normal, Nontender. No: CVA tenderness - Extremities General upper extremity: Normal inspection, Normal strength General lower extremity: Normal inspection, Normal strength - Neurological Neuro grossly intact: Yes Cognition: Normal [place] Coma Scale Eye Opening: Spontaneous [place] Coma Scale Verbal: Oriented [place] Coma Scale Motor: Obeys Commands [place] Coma Scale Total: 15 - Psychological Associated symptoms: Normal affect, Normal mood - Skin Skin Temperature: Warm Skin Moisture: Dry Skin Color: Normal Course - Re-evaluation Re-evalutation: 09/02/18 16:00 Patient without any abdominal pain at this time and denies any additional vomi ting or diarrhea since this morning. Patient states that she came in primarily because she had vomiting and diarrhea at the same time whereas previously she had either vomiting or diarrhea but not both at the same time. Patient also reports that her shortness of breath seemed to be worse earlier today as well which got her concerned about her symptoms. Patient denies taking any Zofran that she had been prescribed at her previous ER visit for this problem. Patient tachycardic in over 50 years of age, with an elevated troponin. CTA ordered. Patient denies chest pain at this time. 09/02/18 17:09 Patient with good air movement bilaterally although scattered wheezing continues. Patient states she is feeling better and is ready to go home. Patient continues to deny any chest pain symptoms, denies abdominal pain vomiting or diarrhea at this time. Patient will be given outpatient supplies to collect a stool specimen at home to bring to lab for additional testing. Abdomen soft without guarding. Patient has a history of diverticulosis noted on CT abdomen performed 3 days ago. Patient denies any blood in emesis or stool and has not had any fever. Patient presents with abdominal pain without signs of peritonitis or other life-threatening or serious etiology. Patient appears stable for discharge and has been instructed to return immediately if the symptoms worsen in any way for reevaluation. The patient has been instructed to return if the symptoms worsen or change in any way. - Vital Signs Vital signs: Temp Pulse Resp BP Pulse Ox 97.9 F 94 27 H 140/70 H 98 09/02/18 17:33 09/02/18 17:33 09/02/18 17:33 09/02/18 17:33 09/02/18 17:33 - Laboratory Result Diagrams: 09/02/18 13:07 09/02/18 13:07 Laboratory results interpreted by me: 09/02/18 09/02/18 09/02/18 13:07 13:07 13:07 WBC 13.7 H MCV 78 L MCH 26.2 L RDW 15.4 H Seg Neutrophils % 78.6 H Lymphocytes % 12.1 L Absolute Neutrophils 10.8 H D-Dimer Sodium 145.2 H Carbon Dioxide 31 H Urine Ketones 20 H Urine Blood SMALL H Ur Leukocyte Esterase TRACE H 09/02/18 15:26 WBC MCV MCH RDW Seg Neutrophils % Lymphocytes % Absolute Neutrophils D-Dimer 2.29 H Sodium Carbon Dioxide Urine Ketones Urine Blood Ur Leukocyte Esterase 09/02/18 17:11 Labs- Entire Visit 09/02/18 09/02/18 09/02/18 13:07 13:07 13:07 WBC 13.7 H RBC 4.72 Hgb 12.4 Hct 36.9 MCV 78 L MCH 26.2 L MCHC 33.6 RDW 15.4 H Plt Count 443 Seg Neutrophils % 78.6 H Lymphocytes % 12.1 L Monocytes % 6.0 Eosinophils % 2.7 Basophils % 0.6 Absolute Neutrophils 10.8 H Absolute Lymphocytes 1.7 Absolute Monocytes 0.8 Absolute Eosinophils 0.4 Absolute Basophils 0.1 D-Dimer Sodium 145.2 H Potassium 3.6 Chloride 103 Carbon Dioxide 31 H Anion Gap 11 BUN 13 Creatinine 0.71 Est GFR ( Amer) > 60 Est GFR (Non-Af Amer) > 60 Glucose 98 Calcium 9.3 Total Bilirubin 0.6 Direct Bilirubin 0.2 Neonat Total Bilirubin Not Reportable Neonat Direct Bilirubin Not Reportable Neonat Indirect Bili Not Reportable AST 17 ALT 23 Alkaline Phosphatase 94 Troponin I Total Protein 6.7 Albumin 4.2 Lipase 91.7 Urine Color YELLOW Urine Appearance SLIGHTLY-CLOUDY Urine pH 5.0 Ur Specific [place] 1.018 Urine Protein NEGATIVE Urine Glucose (UA) NEGATIVE Urine Ketones 20 H Urine Blood SMALL H Urine Nitrite NEGATIVE Urine Bilirubin NEGATIVE Urine Urobilinogen NEGATIVE Ur Leukocyte Esterase TRACE H Urine WBC (Auto) 2 Urine RBC (Auto) 3 U Hyaline Cast (Auto) 3 Urine Bacteria (Auto) TRACE Squamous Epi Cells Auto 2 Urine Mucus (Auto) OCC Urine Ascorbic Acid NEGATIVE 09/02/18 09/02/18 13:07 15:26 WBC RBC Hgb Hct MCV MCH MCHC RDW Plt Count Seg Neutrophils % Lymphocytes % Monocytes % Eosinophils % Basophils % Absolute Neutrophils Absolute Lymphocytes Absolute Monocytes Absolute Eosinophils Absolute Basophils D-Dimer 2.29 H Sodium Potassium Chloride Carbon Dioxide Anion Gap BUN Creatinine Est GFR ( Amer) Est GFR (Non-Af Amer) Glucose Calcium Total Bilirubin Direct Bilirubin Neonat Total Bilirubin Neonat Direct Bilirubin Neonat Indirect Bili AST ALT Alkaline Phosphatase Troponin I < 0.012 Total Protein Albumin Lipase Urine Color Urine Appearance Urine pH Ur Specific [place] Urine Protein Urine Glucose (UA) Urine Ketones Urine Blood Urine Nitrite Urine Bilirubin Urine Urobilinogen Ur Leukocyte Esterase Urine WBC (Auto) Urine RBC (Auto) U Hyaline Cast (Auto) Urine Bacteria (Auto) Squamous Epi Cells Auto Urine Mucus (Auto) Urine Ascorbic Acid - Diagnostic Test Radiology reviewed: Reports reviewed - EKG Interpretation by Me EKG shows normal: Sinus rhythm When compared to previous EKG there are: No significant change Additional EKG results interpreted by me: 09/02/18 17:[address] elevation or T wave inversion. Discharge - Discharge Clinical Impression: COPD exacerbation, Vomiting and diarrhea Condition: Stable Disposition: HOME, SELF-CARE Instructions: Chronic Obstructive Lung Disease ([facility]), Diarrhea, Nonspecific ([facility]), Doxycycline ([facility]), Intravenous (IV) Fluids ([facility]), Vomiting ([facility]) Additional Instructions: Return immediately for any new or worsening symptoms Followup with your primary care provider, call tomorrow to make a followup appointment Obtain stool specimen and bring to lab for additional testing Take your nausea medication that you have at home as prescribed Prescriptions: Doxycycline Hyclate 100 mg PO BID #20 capsule Prednisone [Deltasone 20 mg Tablet] 2 tab PO DAILY 5 Days tablet Forms: Follow-Up Laboratory Testing Referrals: BONIFACIO MELENDEZ FNP-C [Primary Care Provider] - Follow up tomorrow
--- NOTE | 2018-09-02 16:57 | RADIOLOGY REPORT (SQ) ---
EXAM DESCRIPTION: CTA CHEST COMPLETED DATE/TIME: 09/02/2018 4:26 pm REASON FOR STUDY: dyspnea, elevated dimer COMPARISON: Chest x-ray 09/02/2018. CT 02/02/2017 TECHNIQUE: CT scan of the chest performed using helical scanning technique with dynamic intravenous contrast injection. Images reviewed with lung, soft tissue and bone windows. Reconstructed coronal and sagittal MPR images reviewed. Additional 3 dimensional post-processing performed to develop Maximal Intensity Projection images ([place] P). All images stored on PACS. All CT scanners at this facility use dose modulation, iterative reconstruction, and/or weight based d osing when appropriate to reduce radiation dose to as low as reasonably achievable (ALARA). [facility]: Dose Right [facility]: CareDose [facility]: Dose Right [facility]: Teradose 4D [facility]: SynapCell CONTRAST TYPE AND DOSE: contrast/concentration: Isovue 350.00 mg/ml; Total Contrast Delivered: 70.0 ml; Total Saline Delivered: 80.0 ml Contrast bolus adequate for pulmonary arteries and aorta. RENAL FUNCTION: BUN 13 creatinine 0.71 RADIATION DOSE: CT Rad equipment meets quality standard of care and radiation dose reduction techniq ues were employed. CTDIvol: 14.3 - 33.1 mGy. DLP: 531 mGy-cm. . LIMITATIONS: None. FINDINGS: LUNGS AND PLEURA: No masses, infiltrates, or pneumothorax. No pleural effusions or pleura l calcifications. AORTA AND GREAT VESSELS: No aneurysm. Contrast bolus not optimized for the aorta. HEART: No pericardial effusion. No significant coronary artery calcifications. PULMONARY ARTERIES: No emboli visualized in the main pulmonary arteries or the segmental branches. HILAR AND MEDIASTINAL STRUCTURES: No identified masses or abnormal nodes. HARDWARE: None in the chest. UPPER ABDOMEN: Multiple hepatic cysts. The largest measures 5.5 cm. THYROID AND OTHER SOFT TISSUES: No masses. No adenopathy. BONES: No acute or significant finding. 3D MIPS: Confirm above findings. OTHER: No other significant finding. IMPRESSION: There is no evidence of pulmonary emboli. Hepatic cysts. COMMENT: Quality ID # [id number]: Final reports with documentation of one or more dose reduction techniques (e.g., Automated exposure control, adjustment of the mA and/or kV according to patient size, use of iterative reconstruction technique) TECHNICAL DOCUMENTATION: JOB ID: [id number]- All Rights Reserved Reading location - IP/workstation name: [email or web address]
[2018-09-02] MEDS ORDERED: DOXYCYCLINE HYCLATE 100 MG TABLET PO ONE (17:15)
[2018-09-02 17:34] VITALS: BP 140/70
--- NOTE | 2018-09-02 17:57 | EKG REPORT ---
SEVERITY:- ABNORMAL ECG - SINUS RHYTHM PROBABLE POSTERIOR INFARCT : Confirmed by: Raman Hernandez MD 02-Sep-2018 17:56:39
== END 2018-09-02 17:54 | disposition home or self-care (01) ==
LOC: ER 11:40
DX: J44.1 Chronic obstructive pulmonary disease with (acute) exacerbation (principal); R11.2 Nausea with vomiting, unspecified; R19.7 Diarrhea, unspecified; R06.02 Shortness of breath; R10.9 Unspecified abdominal pain; R05 Cough; Z87.891 Personal history of nicotine dependence; I10 Essential (primary) hypertension; E11.9 Type 2 diabetes mellitus without complications
CPT/HCPCS: 93005; 94640 ×2; 99284; 96361; 96374; 36415; 87086; 83690; 85025; 80053; 81001; 84484; 85379; 71046; 71275; 93010; J3490; J7512; J2550; J7030; J7620

== ENCOUNTER 2018-09-20 14:38 | Inpatient (IN) | payer MEDICAID ==
[2018-09-20 15:09] LABS: ABSOLUTE BASOPHILS # (AUTO) 0.1 10^3/uL (0.0-0.2); ABSOLUTE EOSINOPHILS # (AUTO) 1.4 10^3/uL (0.0-0.6); ABSOLUTE MONOCYTES (AUTO) 1.3 10^3/uL (0.1-1.4); ABSOLUTE NEUT (AUTO) 6.4 10^3/uL (1.7-8.2); BASOPHILS % (AUTO) 0.6 % (0-2); EOSINOPHILS % (AUTO) 11.2 % (0-6); HEMATOCRIT 37.1 % (36.0-47.0); HEMOGLOBIN 12.4 g/dL (12.0-15.5); LYMPHOCYTES % (AUTO) 25.1 % (13-45); MEAN CORPUSCULAR HEMOGLOBIN 26.6 pg (27.0-33.4); MEAN CORPUSCULAR HGB CONC 33.4 g/dL (32.0-36.0); MEAN CORPUSCULAR VOLUME 80 fl (80-97); MONOCYTES % (AUTO) 10.4 % (3-13); PLATELET COUNT 313 10^3/uL (150-450); RED BLOOD COUNT 4.65 10^6/uL (3.72-5.28); RED CELL DISTRIBUTION WIDTH 16.1 % (11.5-14.0); SEGMENTED NEUTROPHILS % (AUTO) 52.7 % (42-78); TOTAL CELLS COUNTED % (AUTO) 100 %; WHITE BLOOD COUNT 12.1 10^3/uL (4.0-10.5)
[2018-09-20] MEDS ORDERED: IPRATROPIUM/ALBUTEROL 0.5-2.5 MG/3 ML AMPUL NEB ONE ×2 (15:12→16:30)
[2018-09-20] MEDS ORDERED: ALBUTEROL SULFATE 0.083% NEB 2.5 MG/3 ML AMPUL NEB ONE (15:12)
[2018-09-20] MEDS ORDERED: METHYLPREDNISOLONE INJ 125 MG/2 ML SDV IV ONE (15:12)
[2018-09-20] MEDS ORDERED: MAGNESIUM SULFATE/D5W 1 GM/100 ML RTUPB IV ONE ×2 (15:13→16:30)
[2018-09-20 15:15] LABS: INTERNATIONAL RATION (INR) 0.94; PROTHROMBIN TIME 13.1 SEC (11.4-15.4)
[2018-09-20 15:26] LABS: ALANINE AMINOTRANSFERASE 28 U/L (9-52); ALBUMIN 4.5 g/dL (3.5-5.0); ALKALINE PHOSPHATASE 107 U/L (38-126); ANION GAP 12 (5-19); ASPARTATE AMINO TRANSFERASE 18 U/L (14-36); BILIRUBIN,DIRECT 0.2 mg/dL (0.0-0.4); BILIRUBIN,TOTAL 0.6 mg/dL (0.2-1.3); BLOOD UREA NITROGEN 8 mg/dL (7-20); CALCIUM 10.1 mg/dL (8.4-10.2); CARBON DIOXIDE 29 mmol/L (22-30); CHLORIDE 104 mmol/L (98-107); CREATINE KINASE 58 U/L (30-135); GLUCOSE 144 mg/dL (75-110); LIPASE 94.1 U/L (23-300); POTASSIUM 3.4 mmol/L (3.6-5.0); SODIUM 144.8 mmol/L (137-145); TOTAL PROTEIN 7.2 g/dL (6.3-8.2)
--- NOTE | 2018-09-20 15:33 | RADIOLOGY REPORT (SQ) ---
EXAM DESCRIPTION: CHEST SINGLE VIEW COMPLETED DATE/TIME: 09/20/2018 3:23 pm REASON FOR STUDY: sob COMPARISON: 09/02/2018. EXAM PARAMETERS: NUMBER OF VIEWS: One view. TECHNIQUE: Single frontal radiographic view of the chest acquired. RADIATION DOSE: NA LIMITATIONS: None. FINDINGS: LUNGS AND PLEURA: No opacities, masses or pneumothorax. No pleural effusion. MEDIASTINUM AND HILAR STRUCTURES: No masses. Contour normal. HEART AND VASCULAR STRUCTURES: Heart normal in size. Normal vasculature. BONES: No acute findings. HARDWARE: None in the chest. OTHER: No other significant finding. IMPRESSION: NO ACUTE RADIOGRAPHIC FINDING IN THE CHEST. TECHNICAL DOCUMENTATION: JOB ID: [id number] [employer]- All Rights Reserved Reading location - IP/workstation name: [email or web address]
[2018-09-20 15:37] LABS: CREATINE KINASE MB 0.42 ng/mL (<4.55)
[2018-09-20 15:45] LABS: TROPONIN I < 0.012 ng/mL
[2018-09-20 15:54] LABS: VENOUS BLOOD BASE EXCESS 3.4 mmol/L; VENOUS BLOOD HCO3 29.4 mmol/L (20-32); VENOUS BLOOD PCO2 50.6 mmHg (35-63); VENOUS BLOOD PH 7.38 (7.30-7.42)
[2018-09-20] MEDS ORDERED: TERBUTALINE SULFATE INJ/PF 1 MG/1 ML SDV SUBCUT ONE (16:29)
--- NOTE | 2018-09-20 16:46 | ER Document Report ---
ED General - General Chief Complaint: Breathing Difficulty Stated Complaint: SHORTNESS OF BREATH Time Seen by Provider: 09/20/18 14:54 TRAVEL OUTSIDE OF THE [place] IN LAST 30 DAYS: No - HPI Patient complains to provider of: Difficulty breathing shortness of breath Notes: Patient coming in for difficulty breathing and shortness of breath. Patient has a history of COPD. Patient was found to be hypoxic upon EMS arrival. Patient upon my evaluation was very tachypneic and was tripoding. Patient had difficult time speaking only 2 word sentences. Patient otherwise states no changes to medications no fever no chills no production of her cough. Patient denies smoking. Patient denies any drug abuse. Denies any chest pain abdominal pain - Related Data Allergies/Adverse Reactions: benzonatate [From Tessalpalmira Blanco] Allergy (Verified 08/20/18 10:01) RCING HEARTBEART NSAIDS (Non-Steroidal Anti-Inflamma Allergy (Verified 08/20/18 10:01) RACING HEARTBEAT Past Medical History - Social History Smoking Status: Unknown if Ever Smoked Family History: COPD, DM, Hypertension Patient has suicidal ideation: No Patient has homicidal ideation: No - Past Medical History Cardiac Medical History: Reports: Hx Hypertension Denies: Hx Atrial Fibrillation, Hx Coronary Artery Disease, Hx DVT, Hx Pulmonary Embolism Pulmonary Medical History: Reports: Hx Asthma, Hx Bronchitis, Hx COPD, Hx Pneumonia, Hx Respiratory Failure Denies: Hx Intubation Neurological Medical History: Denies: Hx Seizures Endocrine Medical History: Reports: Hx Diabetes Mellitus Type 2. Denies: Hx Diabetes Mellitus Type 1, Hx Hyperthyroidism, Hx Hypothyroidism Renal/ Medical History: Denies: Hx Peritoneal Dialysis GI Medical History: Denies: Hx Cirrhosis, Hx Gastroesophageal Reflux Disease, Hx Hepatitis Musculoskeletal Medical History: Reports Hx Arthritis, Denies Hx Gout Skin Medical History: Denies Hx Eczema, Denies Hx Psoriasis Psychiatric Medical History: Denies: Hx Depression Infectious Medical History: Denies: Hx Hepatitis - Immunizations Hx Diphtheria, Pertussis, Tetanus Vaccination: Yes Review of Systems - Review of Systems Constitutional: No symptoms reported EENT: No symptoms reported Cardiovascular: No symptoms reported Respiratory: Short of breath, Wheezing Gastrointestinal: No symptoms reported Genitourinary: No symptoms reported Female Genitourinary: No symptoms reported Musculoskeletal: No symptoms reported Skin: No symptoms reported Hematologic/Lymphatic: No symptoms reported Neurological/Psychological: No symptoms reported -: Yes All other systems reviewed and negative Physical Exam - Vital signs Vitals: Pulse Pulse Ox 129 H 83 L 09/20/18 14:39 09/20/18 14:39 Interpretation: Tachycardic, Hypoxic, Tachypneic - General General appearance: Appears well, Alert - HEENT Head: Normocephalic, Atraumatic Eyes: Normal Pupils: PERRL - Respiratory Respiratory status: Respiratory distress, Tachypnea, Tripod position Chest status: Nontender Breath sounds: Normal Chest palpation: Normal - Cardiovascular Rhythm: Regular, Tachycardia Heart sounds: Normal auscultation Murmur: No - Abdominal Inspection: Normal Distension: No distension Bowel sounds: Normal Tenderness: Nontender Organomegaly: No organomegaly - Back Back: Normal, Nontender - Extremities General upper extremity: Normal inspection, Nontender, Normal color, Normal ROM, Normal temperature General lower extremity: Normal inspection, Nontender, Normal color, Normal ROM, Normal temperature, Normal weight bearing. No: Eleni's sign - Neurological Neuro grossly intact: Yes Cognition: Normal Orientation: AAOx4 [place] Coma Scale Eye Opening: Spontaneous [place] Coma Scale Verbal: Oriented [place] Coma Scale Motor: Obeys Commands [place] Coma Scale Total: 15 Speech: Normal Motor strength normal: LUE, RUE, LLE, RLE Sensory: Normal - Psychological Associated symptoms: Normal affect, Normal mood - Skin Skin Temperature: Warm Skin Moisture: Dry Skin Color: Normal Course - Re-evaluation Re-evalutation: 09/20/18 18:21 Transition the patient to BiPAP. Bronchodilator therapy magnesium steroids are given to the patient patient with improvement however patient still requiring FiO2 40% on the BiPAP. Patient still tachypneic. Tachycardic discussed with the hospital staff will admit the patient for further evaluation of her restrictive stress COPD exacerbation - Vital Signs Vital signs: Temp Pulse Resp BP Pulse Ox 98.0 F 135 H 23 H 146/104 H 100 09/20/18 14:52 09/20/18 14:50 09/20/18 17:01 09/20/18 17:01 09/20/18 17:01 - Laboratory Result Diagrams: 09/20/18 14:59 09/20/18 14:59 Laboratory results interpreted by me: 09/20/18 09/20/18 14:59 14:59 WBC 12.1 H MCH 26.6 L RDW 16.1 H Eosinophils % 11.2 H Absolute Eosinophils 1.4 H Potassium 3.4 L Glucose 144 H Magnesium 1.5 L Critical Care Note - Critical Care Note Total time excluding time spent on procedures (mins): 40 Comments: multiple evaluation of respiratory distress. Discharge - Discharge Clinical Impression: Diabetes, Hypoxia, Acute respiratory failure with hypoxemia, COPD exacerbation Condition: Good Disposition: ADMITTED INPATIENT Admitting Provider: Hospitalist - [facility] [place] Unit Admitted: [facility]
[2018-09-20] MEDS ORDERED: ACETAMINOPHEN 325 MG TABLET PO PRN (17:30)
[2018-09-20] MEDS ORDERED: ONDANSETRON 4 MG TAB.RAPDIS PO PRN (17:30)
[2018-09-20] MEDS ORDERED: LEVALBUTEROL HCL NEB 1.25 MG/3 ML AMPUL NEB PRN (17:30)
--- NOTE | 2018-09-20 18:00 | EKG REPORT ---
SEVERITY:- ABNORMAL ECG - SINUS TACHYCARDIA CONSIDER LEFT VENTRICULAR HYPERTROPHY : Confirmed by: Raman Hernandez MD 20-Sep-2018 18:00:31
[2018-09-20] MEDS ORDERED: POTASSIUM CHLORIDE 10 MEQ CAPSULE.ER PO ONE (18:30)
[2018-09-20] MEDS: MAGNESIUM OXIDE 400 MG TABLET PO SCH (18:58)
[2018-09-20] MEDS: METFORMIN HCL 500 MG TABLET PO SCH (18:59)
[2018-09-20 20:15] LABS: ARTERIAL BLOOD BASE EXCESS 0.2 mmol/L; ARTERIAL BLOOD H2CO3 1.44 mmol/L (1.05-1.35); ARTERIAL BLOOD HCO3 26.2 mmol/L (20-24); ARTERIAL BLOOD O2 SATURATION 97.7 % (94-98); ARTERIAL BLOOD PCO2 47.7 mmHg (35-45); ARTERIAL BLOOD PH 7.36 (7.35-7.45); ARTERIAL BLOOD PO2 107.9 mmHg (80-100); ARTERIAL BLOOD TOTAL CO2 27.6 mmol/L (21-25)
[2018-09-20 20:16] LABS: ARTERIAL BLOOD FIO2 40%
[2018-09-20] MEDS: IPRATROPIUM/ALBUTEROL 0.5-2.5 MG/3 ML AMPUL NEB SCH (20:16)
[2018-09-20] MEDS ORDERED: DEXTROSE 50%-WATER 25 GM/50 ML DISP.SYRIN IV PRN ×2 (20:52)
[2018-09-20] MEDS ORDERED: GLUCAGON,HUMAN RECOMB 1 MG INJ IM PRN (20:52)
[2018-09-20] MEDS ORDERED: DEXTROSE 40% GEL 15 GM TUBE PO PRN ×2 (20:52)
--- NOTE | 2018-09-20 21:03 | PDOC H&P ---
History of Present Illness Admission Date/PCP: 09/20/18 16:50 JENNIFER MEYER Patient complains of: Shortness of breath History of Present Illness: ADDIE STEWART is a 57 year old female with multiple visits of exacerbation of her COPD. She reports that over the last day or 2 she has noticed increasing shortness of breath. She denies fever or chills. She denies productive cough. She does report postnasal drip. She has a history of seasonal allergies with nasal polyps. She tried several nebulizer treatments at home before presenting to the emergency department. Blood gas on BiPAP revealed pH of 7.36 with a PCO2 47 PO2 of 107 and bicarb of 26. White blood cell count was minimally elevated. She was given nebulizer treatments and steroids and referred to the hospital service for admission. Past Medical History Cardiac Medical History: Reports: Hypertension Denies: Atrial Fibrillation, Coronary Artery Disease, DVT, Pulmonary Embolism Pulmonary Medical History: Reports: Asthma, Bronchitis, Chronic Obstructive Pulmonary Disease (COPD), Pneumonia, Respiratory Failure Denies: Intubation EENT Medical History: Reports: Nose - Seasonal allergies with nasal polyps Neurological Medical History: Denies: Seizures Endocrine Medical History: Reports: Diabetes Mellitus Type 2 Denies: Diabetes Mellitus Type 1, Hyperthyroidism, Hypothyroidism Renal/ Medical History: Denies: Chronic Kidney Disease Malignancy Medical History: Reports: None GI Medical History: Denies: Cirrhosis, Gastroesophageal Reflux Disease, Hepatitis Musculoskeltal Medical History: Reports: Arthritis Denies: Gout Skin Medical History: Denies: Eczema, Psoriasis Psychiatric Medical History: Denies: Depression Traumatic Medical History: Reports: None Hematology: Denies: Anemia, Bleeding Tendencies Infectious Medical History: Reports: None Social History Information Source: Patient Lives with: Family - Spouse and son Smoking Status: Former Smoker Frequency of Alcohol Use: None Hx Recreational Drug Use: No Drugs: None Hx Prescription Drug Abuse: No - Advance Directive Resuscitation Status: Full Code Surrogate healthcare decision maker:: No healthcare proxy documentation but is the designated decision maker Family History Family History: COPD, DM, Hypertension Parental Family History Reviewed: Yes Children Family History Reviewed: Yes Sibling(s) Family History Reviewed.: Yes Medication/Allergy Home Medications: Albuterol Sulfate [Ventolin 0.083% Neb 2.5 mg/3 mL Ampul] 1 vial NEB Q8HP PRN 07/27/18 Ipratropium/Albuterol Sulfate [Duoneb 3 ml Ampul] 1 vial NEB Q6HP PRN 07/27/18 Carvedilol [Coreg 3.125 mg Tablet] 1 tab PO BID 07/28/18 Metformin HCl 1,000 mg PO BID 07/28/18 Budesonide/Formoterol Fumarate [Symbicort HFA 160-4.5 mcg Inhaler 6 gm] 2 puff IH Q12 inhaler 07/31/18 Diltiazem HCl [Cardizem Cd 240 mg Capsule.cr] 240 mg PO Q12 capsule.cr 07/31/18 Loratadine [Claritin 10 mg Tablet] 10 mg PO DAILY 09/20/18 Allergies/Adverse Reactions: benzonatate [From [email or web address]] Allergy (Verified 08/20/18 10:01) RCING HEARTBEART NSAIDS (Non-Steroidal Anti-Inflamma Allergy (Verified 08/20/18 10:01) RACING HEARTBEAT Review of Systems Constitutional: ABSENT: chills, fever(s), headache(s), weight gain Eyes: ABSENT: visual disturbances Ears: ABSENT: hearing changes Nose, Mouth, and Throat: PRESENT: other - Postnasal drip. ABSENT: mouth pain, sore throat Cardiovascular: ABSENT: chest pain, edema, palpitations Respiratory: PRESENT: cough, dyspnea. ABSENT: hemoptysis, sputum Gastrointestinal: ABSENT: abdominal pain, constipation, diarrhea, heartburn, nausea Genitourinary: ABSENT: dysuria, hematuria Musculoskeletal: ABSENT: joint swelling, muscle weakness Integumentary: ABSENT: lesions Neurological: ABSENT: abnormal gait, abnormal speech, confusion, lack of coordination, memory loss, vertigo Psychiatric: ABSENT: anxiety, depression, hallucinations Endocrine: ABSENT: cold intolerance, heat intolerance Hematologic/Lymphatic: ABSENT: easy bleeding, easy bruising Allergic/Immunologic: PRESENT: seasonal rhinorrhea Physical Exam Vital Signs: Temp Pulse Resp BP Pulse Ox 98.0 F 135 H 23 H 146/104 H 100 09/20/18 14:52 09/20/18 14:50 09/20/18 17:01 09/20/18 17:01 09/20/18 17:01 Intake & Output 09/19/18 09/20/18 09/21/18 06:59 06:59 06:59 Intake Total 100 Balance 100 Weight 74.843 kg General appearance: PRESENT: cooperative, mild distress, well-developed Head exam: PRESENT: normocephalic Eye exam: PRESENT: conjunctiva pink, EOMI. ABSENT: periorbital swelling, scleral icterus Ear exam: PRESENT: normal external ear exam Mouth exam: PRESENT: other - BiPAP mask in place Neck exam: ABSENT: lymphadenopathy, tenderness Respiratory exam: PRESENT: rhonchi - Right side, tachypnea, wheezes - Occasional expiratory wheezes bilaterally Cardiovascular exam: PRESENT: RRR, +S1, +S2 GI/Abdominal exam: PRESENT: normal bowel sounds, soft. ABSENT: distended, tenderness Rectal exam: PRESENT: deferred Gentrourinary exam: ABSENT: indwelling catheter Extremities exam: ABSENT: pedal edema Musculoskeletal exam: PRESENT: normal inspection Neurological exam: PRESENT: alert, awake, oriented to person, oriented to place, oriented to time, oriented to situation, CN II-XII grossly intact Psychiatric exam: PRESENT: appropriate affect. ABSENT: agitated, anxious Focused psych exam: ABSENT: delusional, restlessness Skin exam: PRESENT: dry, warm. ABSENT: rash Results Laboratory Results: 09/20/18 14:59 09/20/18 14:59 09/20/18 09/20/18 09/20/18 14:59 14:59 14:59 WBC 12.1 H RBC 4.65 Hgb 12.4 Hct 37.1 MCV 80 MCH 26.6 L MCHC 33.4 RDW 16.1 H Plt Count 313 Seg Neutrophils % 52.7 Lymphocytes % 25.1 Monocytes % 10.4 Eosinophils % 11.2 H Basophils % 0.6 Absolute Neutrophils 6.4 Absolute Lymphocytes 3.0 Absolute Monocytes 1.3 Absolute Eosinophils 1.4 H Absolute Basophils 0.1 Carbonic Acid HCO3/H2CO3 Ratio ABG pH ABG pCO2 ABG pO2 ABG HCO3 ABG O2 Saturation ABG Base Excess VBG pH 7.38 VBG pCO2 50.6 VBG HCO3 29.4 VBG Base Excess 3.4 FiO2 Sodium 144.8 Potassium 3.4 L Chloride 104 Carbon Dioxide 29 Anion Gap 12 BUN 8 Creatinine 0.53 Est GFR ( Amer) > 60 Est GFR (Non-Af Amer) > 60 Glucose 144 H Calcium 10.1 Magnesium 1.5 L Total Bilirubin 0.6 AST 18 ALT 28 Alkaline Phosphatase 107 Total Protein 7.2 Albumin 4.5 Lipase 94.1 09/20/18 09/20/18 14:59 17:13 WBC RBC Hgb Hct MCV MCH MCHC RDW Plt Count Seg Neutrophils % Lymphocytes % Monocytes % Eosinophils % Basophils % Absolute Neutrophils Absolute Lymphocytes Absolute Monocytes Absolute Eosinophils Absolute Basophils Carbonic Acid Cancelled HCO3/H2CO3 Ratio Cancelled ABG pH Cancelled ABG pCO2 Cancelled ABG pO2 Cancelled ABG HCO3 Cancelled ABG O2 Saturation Cancelled ABG Base Excess Cancelled VBG pH VBG pCO2 VBG HCO3 VBG Base Excess FiO2 Cancelled Sodium Potassium Chloride Carbon Dioxide Anion Gap BUN Creatinine Est GFR ( Amer) Est GFR (Non-Af Amer) Glucose Calcium Magnesium Cancelled Total Bilirubin AST ALT Alkaline Phosphatase Total Protein Albumin Lipase 09/20/18 09/20/18 14:59 14:59 Creatine Kinase 58 CK-MB (CK-2) 0.42 Troponin I < 0.012 Impressions: Chest X-Ray 09/20/18 14:54 IMPRESSION: NO ACUTE RADIOGRAPHIC FINDING IN THE CHEST. Assessment & Plan - Diagnosis (1) Acute respiratory failure with hypoxemia Is this a current diagnosis for this admission?: Yes Plan: On arrival to the emergency department the patient's pulse ox was 83% on room air. She was given oxygen supplementation and placed on BiPAP for an elevated PCO2. We will try and wean her from BiPAP and oxygen supplementation. (2) Acute exacerbation of chronic obstructive pulmonary disease (COPD) Is this a current diagnosis for this admission?: Yes Plan: The patient was given intravenous steroids as well as duo nebs and Xopenex nebulizer treatments to be available as needed. Her white blood cell count was only 12.1 and there was no productive sputum and no infiltrate on x-ray I will place her on azithromycin for a possible bronchitis exacerbating the chronic obstructive pulmonary disease. She does have postnasal drip which could have irritated the bronchi. In addition she stated that she had some mild upper respiratory symptoms and wondered if it was a virus. (3) Hypertension Qualifiers: Hypertension type: essential hypertension Qualified Code(s): I10 - Essential (primary) hypertension Plan: Continue current antihypertensives. Use of steroids might increase her blood pressure. We will adjust medications if clinically indicated. 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 In addition I have ordered Humalog sliding scale as I anticipate the Accu-Cheks to increase because of the steroids. (5) Hypomagnesemia Is this a current diagnosis for this admission?: Yes Plan: She was given 2 g of magnesium sulfate by IV in the emergency department. I have started mag oxide p.o. as well. Continue to monitor magnesium levels. (6) Hypokalemia Is this a current diagnosis for this admission?: Yes Plan: Begin oral potassium supplementation. Continue to monitor potassium level. Supplement as indicated. - Time Time Spent: 50 to 70 Minutes Medications reviewed and adjusted accordingly: Yes Anticipated discharge: Home Within: within 72 hours - Inpatient Certification Based on my medical assessment, after consideration of the patient's comorbidities, presenting symptoms, or acuity I expect that the services needed warrant INPATIENT care.: Yes I certify that my determination is in accordance with my understanding of Medicare's requirements for reasonable and necessary INPATIENT services [42 CFR 412.3e].: Yes Medical Necessity: Need for Nebulizer Therapy and Monitoring of Response, Need for IV Antibiotics
[2018-09-20] MEDS ORDERED: METHYLPREDNISOLONE INJ 40 MG/1 ML SDV IV SCH (22:00)
[2018-09-20] MEDS: GUAIFENESIN 600 MG TABLET.SA PO SCH (22:33)
[2018-09-20] MEDS: METHYLPREDNISOLONE INJ 125 MG/2 ML SDV IV SCH (22:33)
[2018-09-20] MEDS: MONTELUKAST SODIUM 10 MG TABLET PO SCH (22:33)
[2018-09-20] MEDS: DILTIAZEM HCL 240 MG CAPSULE.CR PO SCH (22:34)
[2018-09-20] MEDS: CARVEDILOL 3.125 MG TABLET PO SCH (22:34)
[2018-09-20] MEDS: AZITHROMYCIN 500 MG in DEXTROSE 5%-WATER 250 ML IV SCH (22:35)
[2018-09-20] MEDS: INSULIN LISPRO 100 UNIT/ML 3 ML VIAL SUBCUT SCH (22:35)
[2018-09-21] MEDS: IPRATROPIUM/ALBUTEROL 0.5-2.5 MG/3 ML AMPUL NEB SCH ×4 (01:40→20:14)
[2018-09-21] MEDS: METHYLPREDNISOLONE INJ 125 MG/2 ML SDV IV SCH ×3 (05:17→22:39)
[2018-09-21] MEDS: LANSOPRAZOLE 15 MG TAB.RAP.DR PO SCH ×2 (05:17→16:35)
[2018-09-21 06:53] LABS: ABSOLUTE LYMPHOCYTES (AUTO) 0.9 10^3/uL (0.5-4.7); ABSOLUTE MONOCYTES (AUTO) 0.1 10^3/uL (0.1-1.4); ABSOLUTE NEUT (AUTO) 8.9 10^3/uL (1.7-8.2); BASOPHILS % (AUTO) 0.1 % (0-2); HEMATOCRIT 35.1 % (36.0-47.0); HEMOGLOBIN 11.8 g/dL (12.0-15.5); LYMPHOCYTES % (AUTO) 9.1 % (13-45); MEAN CORPUSCULAR HEMOGLOBIN 26.9 pg (27.0-33.4); MEAN CORPUSCULAR HGB CONC 33.5 g/dL (32.0-36.0); MEAN CORPUSCULAR VOLUME 80 fl (80-97); MONOCYTES % (AUTO) 0.8 % (3-13); PLATELET COUNT 270 10^3/uL (150-450); RED BLOOD COUNT 4.38 10^6/uL (3.72-5.28); RED CELL DISTRIBUTION WIDTH 15.9 % (11.5-14.0); TOTAL CELLS COUNTED % (AUTO) 100 %; WHITE BLOOD COUNT 9.9 10^3/uL (4.0-10.5)
[2018-09-21 07:16] LABS: ANION GAP 14 (5-19); BLOOD UREA NITROGEN 15 mg/dL (7-20); CALCIUM 9.7 mg/dL (8.4-10.2); CARBON DIOXIDE 24 mmol/L (22-30); CHLORIDE 103 mmol/L (98-107); GLUCOSE 176 mg/dL (75-110); SODIUM 140.5 mmol/L (137-145)
[2018-09-21 07:39] LABS: POTASSIUM 4.6 mmol/L (3.6-5.0)
--- NOTE | 2018-09-21 08:57 | RADIOLOGY REPORT (SQ) ---
EXAM DESCRIPTION: CHEST SINGLE VIEW COMPLETED DATE/TIME: 09/21/2018 7:57 am REASON FOR STUDY: COPD COMPARISON: Chest film 09/20/2018, 09/02/2018 CT chest 09/02/2018 EXAM PARAMETERS: NUMBER OF VIEWS: One view. TECHNIQUE: Single frontal radiographic view of the chest acquired. RADIATION DOSE: NA LIMITATIONS: None. FINDINGS: LUNGS AND PLEURA: No opacities, masses or pneumothorax. No pleural effusion. MEDIASTINUM AND HILAR STRUCTURES: No masses. Contour normal. HEART AND VASCULAR STRUCTURES: Heart normal in size. Normal vasculature. BONES: No acute findings. HARDWARE: None in the chest. OTHER: No other significant finding. IMPRESSION: NO ACUTE RADIOGRAPHIC FINDING IN THE CHEST. TECHNICAL DOCUMENTATION: JOB ID: [id number] [employer]- All Rights Reserved Reading location - IP/workstation name: [email or web address]
[2018-09-21] MEDS: INSULIN LISPRO 100 UNIT/ML 3 ML VIAL SUBCUT SCH ×4 (09:33→23:39)
[2018-09-21] MEDS: POTASSIUM CHLORIDE 10 MEQ CAPSULE.ER PO SCH (09:34)
[2018-09-21] MEDS: DILTIAZEM HCL 240 MG CAPSULE.CR PO SCH ×2 (09:34→22:38)
[2018-09-21] MEDS: GUAIFENESIN 600 MG TABLET.SA PO SCH ×2 (09:34→22:37)
[2018-09-21] MEDS: METFORMIN HCL 500 MG TABLET PO SCH ×2 (09:35→16:35)
[2018-09-21] MEDS: CARVEDILOL 3.125 MG TABLET PO SCH ×2 (09:35→22:38)
[2018-09-21] MEDS: MAGNESIUM OXIDE 400 MG TABLET PO SCH ×2 (09:35→17:42)
[2018-09-21] MEDS: ENOXAPARIN SODIUM INJ 40 MG/0.4 ML DISP.SYRIN SUBCUT SCH (09:42)
--- NOTE | 2018-09-21 17:54 | PDOC PROGRESS REPORT ---
Subjective Progress Note for:: 09/21/18 Subjective:: The patient is resting in her bed. She states she is beginning to improve but she is not yet back to her baseline. She denies fever or shaking chills. No chest pain or heart palpitations. She still has some shortness of breath and wheezing. No nausea vomiting or diarrhea. No urinary complaints. Reason For Visit: EXACERBATION COPD Physical Exam Vital Signs: Temp Pulse Resp BP Pulse Ox 97.9 F 102 H 20 135/66 H 97 09/21/18 16:32 09/21/18 16:32 09/21/18 16:32 09/21/18 16:32 09/21/18 16:32 Intake & Output 09/20/18 09/21/18 09/22/18 06:59 06:59 06:59 Intake Total 450 Balance 450 Weight 71.9 kg General appearance: PRESENT: no acute distress, well-developed, well-nourished Head exam: PRESENT: atraumatic, normocephalic Ear exam: PRESENT: normal external ear exam Respiratory exam: PRESENT: clear to auscultation connor, wheezes. ABSENT: rales, rhonchi Cardiovascular exam: PRESENT: RRR. ABSENT: diastolic murmur, rubs, systolic murmur GI/Abdominal exam: PRESENT: normal bowel sounds, soft. ABSENT: distended, guarding, mass, organolmegaly, rebound, tenderness Rectal exam: PRESENT: deferred Extremities exam: PRESENT: full ROM. ABSENT: calf tenderness, clubbing, pedal edema Musculoskeletal exam: PRESENT: ambulatory Neurological exam: PRESENT: alert, awake, oriented to person, oriented to place, oriented to time, oriented to situation, CN II-XII grossly intact. ABSENT: motor sensory deficit Psychiatric exam: PRESENT: appropriate affect, normal mood. ABSENT: homicidal ideation, suicidal ideation Skin exam: PRESENT: dry, intact, warm. ABSENT: cyanosis, rash Results Laboratory Results: 09/21/18 05:12 09/21/18 05:12 09/20/18 09/21/18 09/21/18 20:05 05:12 05:12 WBC 9.9 RBC 4.38 Hgb 11.8 L Hct 35.1 L MCV 80 MCH 26.9 L MCHC 33.5 RDW 15.9 H Plt Count 270 Seg Neutrophils % 90.0 H Lymphocytes % 9.1 L Monocytes % 0.8 L Eosinophils % 0.0 Basophils % 0.1 Absolute Neutrophils 8.9 H Absolute Lymphocytes 0.9 Absolute Monocytes 0.1 Absolute Eosinophils 0.0 Absolute Basophils 0.0 Carbonic Acid 1.44 H HCO3/H2CO3 Ratio 18:1 ABG pH 7.36 ABG pCO2 47.7 H ABG pO2 107.9 H ABG HCO3 26.2 H ABG O2 Saturation 97.7 ABG Base Excess 0.2 FiO2 40% Sodium 140.5 Potassium 4.6 D Chloride 103 Carbon Dioxide 24 Anion Gap 14 BUN 15 Creatinine 0.63 Est GFR ( Amer) > 60 Est GFR (Non-Af Amer) > 60 Glucose 176 H Calcium 9.7 Magnesium 2.3 09/20/18 09/20/18 09/20/18 14:59 14:59 22:53 Creatine Kinase 58 CK-MB (CK-2) 0.42 Troponin I < 0.012 < 0.012 Impressions: Chest X-Ray 09/21/18 06:00 IMPRESSION: NO ACUTE RADIOGRAPHIC FINDING IN THE CHEST. Assessment & Plan - Diagnosis (1) Acute respiratory failure with hypoxemia Is this a current diagnosis for this admission?: Yes Plan: She is still above her baseline oxygen requirements. Continue aggressive breathing treatments and therapy as outlined below. (2) COPD exacerbation Is this a current diagnosis for this admission?: Yes Plan: Continue aggressive breathing treatments. She was started on 80 mg of Solu- Medrol every 8 hours. Going to cut this back to 40 every 8 today. She is slowly improving. (3) Diabetes Qualifiers: Is this a current diagnosis for this admission?: Yes Plan: Continue sliding-scale as she will have hyperglycemia due to the high-dose steroids. (4) Hypertensive urgency Is this a current diagnosis for this admission?: Yes Plan: The patient had markedly uncontrolled blood pressures at the time of admission. This was likely due to her respiratory distress which is since resolved. Currently her blood pressure is stable. (5) Hypokalemia Is this a current diagnosis for this admission?: Yes Plan: Repleted and resolved (6) Hypomagnesemia Is this a current diagnosis for this admission?: Yes Plan: Repleted and resolved - Time Time Spent with patient: 35 or more minutes - Inpatient Certification Medical Necessity: Other - Inpatient hospitalization remains necessary. The patient has an acute COPD exacerbation requiring parenteral steroids. Timing of disposition will be determined by her clinical course.
[2018-09-21] MEDS: MONTELUKAST SODIUM 10 MG TABLET PO SCH (22:39)
[2018-09-21] MEDS: AZITHROMYCIN 500 MG in DEXTROSE 5%-WATER 250 ML IV SCH (22:40)
[2018-09-22] MEDS: IPRATROPIUM/ALBUTEROL 0.5-2.5 MG/3 ML AMPUL NEB SCH ×4 (01:47→19:49)
[2018-09-22 04:58] LABS: ABSOLUTE LYMPHOCYTES (AUTO) 0.6 10^3/uL (0.5-4.7); ABSOLUTE MONOCYTES (AUTO) 0.3 10^3/uL (0.1-1.4); ABSOLUTE NEUT (AUTO) 10.5 10^3/uL (1.7-8.2); BASOPHILS % (AUTO) 0.2 % (0-2); HEMATOCRIT 32.6 % (36.0-47.0); LYMPHOCYTES % (AUTO) 5.6 % (13-45); MEAN CORPUSCULAR HEMOGLOBIN 26.7 pg (27.0-33.4); MEAN CORPUSCULAR HGB CONC 33.7 g/dL (32.0-36.0); MEAN CORPUSCULAR VOLUME 79 fl (80-97); MONOCYTES % (AUTO) 2.6 % (3-13); PLATELET COUNT 290 10^3/uL (150-450); RED BLOOD COUNT 4.11 10^6/uL (3.72-5.28); SEGMENTED NEUTROPHILS % (AUTO) 91.6 % (42-78); TOTAL CELLS COUNTED % (AUTO) 100 %; WHITE BLOOD COUNT 11.4 10^3/uL (4.0-10.5)
[2018-09-22 05:39] LABS: ANION GAP 9 (5-19); BLOOD UREA NITROGEN 23 mg/dL (7-20); CALCIUM 9.7 mg/dL (8.4-10.2); CARBON DIOXIDE 25 mmol/L (22-30); CHLORIDE 105 mmol/L (98-107); GLUCOSE 209 mg/dL (75-110); POTASSIUM 4.2 mmol/L (3.6-5.0)
[2018-09-22] MEDS: METHYLPREDNISOLONE INJ 125 MG/2 ML SDV IV SCH ×2 (06:01→14:13)
[2018-09-22] MEDS: LANSOPRAZOLE 15 MG TAB.RAP.DR PO SCH ×2 (06:01→17:29)
[2018-09-22] MEDS: INSULIN LISPRO 100 UNIT/ML 3 ML VIAL SUBCUT SCH ×4 (07:58→23:06)
[2018-09-22] MEDS: METFORMIN HCL 500 MG TABLET PO SCH ×2 (07:58→17:22)
[2018-09-22] MEDS: MAGNESIUM OXIDE 400 MG TABLET PO SCH ×2 (09:08→17:22)
[2018-09-22] MEDS: ENOXAPARIN SODIUM INJ 40 MG/0.4 ML DISP.SYRIN SUBCUT SCH (09:08)
[2018-09-22] MEDS: CARVEDILOL 3.125 MG TABLET PO SCH ×2 (09:08→23:04)
[2018-09-22] MEDS: GUAIFENESIN 600 MG TABLET.SA PO SCH ×2 (09:08→23:05)
[2018-09-22] MEDS: POTASSIUM CHLORIDE 10 MEQ CAPSULE.ER PO SCH (09:08)
[2018-09-22] MEDS: DILTIAZEM HCL 240 MG CAPSULE.CR PO SCH ×2 (09:08→23:03)
[2018-09-22] MEDS: MONTELUKAST SODIUM 10 MG TABLET PO SCH (23:05)
[2018-09-22] MEDS: METHYLPREDNISOLONE INJ 40 MG/1 ML SDV IV SCH (23:07)
[2018-09-22] MEDS: AZITHROMYCIN 500 MG in DEXTROSE 5%-WATER 250 ML IV SCH (23:08)
--- NOTE | 2018-09-23 00:16 | PDOC PROGRESS REPORT ---
Subjective Progress Note for:: 09/23/18 Subjective:: The patient is resting in her bed. She is a 58 year old female with COPD. She presented to the ER with increased shortness of breath. She was found to be hypoxic with O2 sats of 83% and she was referred for admission. She has been receiving aggressive breathing treatments and IV solumedrol but has been slow to improve. When I saw her today she states she is somewhat better than yesterday but she is not yet back to her baseline. She denies fever or shaking chills. No chest pain or heart palpitations. She still has some shortness of breath and wheezing. No nausea vomiting or diarrhea. No urinary complaints. Reason For Visit: EXACERBATION COPD Physical Exam Vital Signs: Temp Pulse Resp BP Pulse Ox 97.3 F 102 H 24 H 128/62 H 95 09/22/18 20:08 09/22/18 20:08 09/22/18 20:08 09/22/18 20:08 09/22/18 20:08 Intake & Output 09/21/18 09/22/18 09/23/18 06:59 06:59 06:59 Intake Total 450 2252 1155 Output Total 1360 850 Balance 450 892 305 Weight 71.9 kg 72.8 kg General appearance: PRESENT: no acute distress, well-developed, well-nourished, other - She is receiving O2 via nasal canula Head exam: PRESENT: atraumatic, normocephalic Mouth exam: PRESENT: moist, tongue midline Respiratory exam: PRESENT: decreased breath sounds, wheezes Cardiovascular exam: PRESENT: RRR. ABSENT: diastolic murmur, rubs, systolic murmur GI/Abdominal exam: PRESENT: normal bowel sounds, soft. ABSENT: distended, guarding, mass, organolmegaly, rebound, tenderness Extremities exam: PRESENT: full ROM. ABSENT: calf tenderness, clubbing, pedal edema Neurological exam: PRESENT: alert, awake, oriented to person, oriented to place, oriented to time, oriented to situation, CN II-XII grossly intact. ABSENT: motor sensory deficit Skin exam: PRESENT: dry, intact, warm. ABSENT: cyanosis, rash Results Laboratory Results: 09/22/18 04:14 09/22/18 04:14 09/22/18 09/22/18 04:14 04:14 WBC 11.4 H RBC 4.11 Hgb 11.0 L Hct 32.6 L MCV 79 L MCH 26.7 L MCHC 33.7 RDW 16.0 H Plt Count 290 Seg Neutrophils % 91.6 H Lymphocytes % 5.6 L Monocytes % 2.6 L Eosinophils % 0.0 Basophils % 0.2 Absolute Neutrophils 10.5 H Absolute Lymphocytes 0.6 Absolute Monocytes 0.3 Absolute Eosinophils 0.0 Absolute Basophils 0.0 Sodium 139.0 Potassium 4.2 Chloride 105 Carbon Dioxide 25 Anion Gap 9 BUN 23 H Creatinine 0.69 Est GFR ( Amer) > 60 Est GFR (Non-Af Amer) > 60 Glucose 209 H Calcium 9.7 Magnesium 2.3 09/20/18 09/20/18 09/20/18 14:59 14:59 22:53 Creatine Kinase 58 CK-MB (CK-2) 0.42 Troponin I < 0.012 < 0.012 Impressions: Chest X-Ray 09/21/18 06:00 IMPRESSION: NO ACUTE RADIOGRAPHIC FINDING IN THE CHEST. Assessment & Plan - Diagnosis (1) Acute respiratory failure with hypoxemia Is this a current diagnosis for this admission?: Yes Plan: Secondary to COPD exacerbation. She is still above her baseline oxygen requirements. Continue aggressive breathing treatments and therapy as outlined below. (2) COPD exacerbation Is this a current diagnosis for this admission?: Yes Plan: Continue aggressive breathing treatments. She was started on 80 mg of Solu- Medrol every 8 hours. Yesterday I cut this back to 40 every 8 today. She is slowly improving. (3) Diabetes Qualifiers: Is this a current diagnosis for this admission?: Yes Plan: Continue sliding-scale as she will have hyperglycemia due to the high-dose steroids. (4) Hypertensive urgency Is this a current diagnosis for this admission?: Yes Plan: The patient had markedly uncontrolled blood pressures at the time of admission. This was likely due to her respiratory distress which is since resolved. Currently her blood pressure is stable. (5) Hypokalemia Is this a current diagnosis for this admission?: Yes Plan: Repleted and resolved (6) Hypomagnesemia Is this a current diagnosis for this admission?: Yes Plan: Repleted and resolved - Time Time Spent with patient: 35 or more minutes - Inpatient Certification Medical Necessity: Other - Inpatient hospitalization remains necessary. She is still hypoxic and requiring parenteral steroids. She may require oxygen at discharge
[2018-09-23] MEDS: IPRATROPIUM/ALBUTEROL 0.5-2.5 MG/3 ML AMPUL NEB SCH ×4 (02:05→20:04)
[2018-09-23] MEDS: METHYLPREDNISOLONE INJ 40 MG/1 ML SDV IV SCH ×3 (05:53→22:38)
[2018-09-23] MEDS: LANSOPRAZOLE 15 MG TAB.RAP.DR PO SCH ×2 (05:54→17:10)
[2018-09-23] MEDS: INSULIN LISPRO 100 UNIT/ML 3 ML VIAL SUBCUT SCH ×4 (08:22→22:40)
[2018-09-23] MEDS: METFORMIN HCL 500 MG TABLET PO SCH ×2 (08:22→17:10)
[2018-09-23] MEDS: MAGNESIUM OXIDE 400 MG TABLET PO SCH ×2 (09:52→17:07)
[2018-09-23] MEDS: POTASSIUM CHLORIDE 10 MEQ CAPSULE.ER PO SCH (09:52)
[2018-09-23] MEDS: DILTIAZEM HCL 240 MG CAPSULE.CR PO SCH ×2 (09:52→22:39)
[2018-09-23] MEDS: CARVEDILOL 3.125 MG TABLET PO SCH ×2 (09:52→22:39)
[2018-09-23] MEDS: GUAIFENESIN 600 MG TABLET.SA PO SCH ×2 (09:52→22:38)
[2018-09-23] MEDS: ENOXAPARIN SODIUM INJ 40 MG/0.4 ML DISP.SYRIN SUBCUT SCH (09:55)
--- NOTE | 2018-09-23 17:43 | PDOC PROGRESS REPORT ---
Subjective Progress Note for:: 09/23/18 Subjective:: No adverse events overnight. No new complaints. She says she is been able to get up and get around in the room some but she still gets a little short of breath. She is able to rest on room air while in the bed. Still has some occasional coughing fits. Reason For Visit: EXACERBATION COPD Physical Exam Vital Signs: Temp Pulse Resp BP Pulse Ox 97.8 F 81 16 131/71 H 96 09/23/18 11:00 09/23/18 14:34 09/23/18 14:34 09/23/18 11:00 09/23/18 14:34 Intake & Output 09/22/18 09/23/18 09/24/18 06:59 06:59 06:59 Intake Total 2252 1405 Output Total 1360 1750 Balance 892 -345 Weight 72.8 kg 74.2 kg General appearance: PRESENT: no acute distress, well-developed, well-nourished, other - She is receiving O2 via nasal canula Respiratory exam: PRESENT: decreased breath sounds, end expiratory wheezes Cardiovascular exam: PRESENT: RRR. ABSENT: diastolic murmur, rubs, systolic murmur GI/Abdominal exam: PRESENT: normal bowel sounds, soft. ABSENT: distended, guarding, mass, organolmegaly, rebound, tenderness Extremities exam: PRESENT: full ROM. ABSENT: calf tenderness, clubbing, pedal edema Neurological exam: PRESENT: alert, awake, oriented to person, oriented to place, oriented to time, oriented to situation, CN II-XII grossly intact. ABSENT: motor sensory deficit Skin exam: PRESENT: dry, intact, warm. ABSENT: cyanosis, rash Results Laboratory Results: 09/22/18 04:14 09/22/18 04:14 09/20/18 09/20/18 09/20/18 14:59 14:59 22:53 Creatine Kinase 58 CK-MB (CK-2) 0.42 Troponin I < 0.012 < 0.012 Impressions: Chest X-Ray 09/21/18 06:00 IMPRESSION: NO ACUTE RADIOGRAPHIC FINDING IN THE CHEST. Assessment & Plan - Diagnosis (1) Acute respiratory failure with hypoxemia Is this a current diagnosis for this admission?: Yes Plan: Resolved (2) COPD exacerbation Is this a current diagnosis for this admission?: Yes Plan: Still has a little bit of wheezing, will continue the current regimen. Even if she is wheezing tomorrow, if she is been able to get around in the room without too much trouble room air, will probably send her home. (3) Hypomagnesemia Is this a current diagnosis for this admission?: Yes Plan: Resolved - Time Time Spent with patient: 25-34 minutes
[2018-09-23] MEDS ORDERED: AZITHROMYCIN 500 MG in DEXTROSE 5%-WATER 250 ML IV SCH (22:00)
[2018-09-23] MEDS: MONTELUKAST SODIUM 10 MG TABLET PO SCH (22:39)
[2018-09-24] MEDS: IPRATROPIUM/ALBUTEROL 0.5-2.5 MG/3 ML AMPUL NEB SCH ×3 (02:17→13:34)
[2018-09-24] MEDS: METHYLPREDNISOLONE INJ 40 MG/1 ML SDV IV SCH ×2 (06:01→14:30)
[2018-09-24] MEDS: LANSOPRAZOLE 15 MG TAB.RAP.DR PO SCH (06:01)
[2018-09-24] MEDS: METFORMIN HCL 500 MG TABLET PO SCH (08:26)
[2018-09-24] MEDS: INSULIN LISPRO 100 UNIT/ML 3 ML VIAL SUBCUT SCH ×2 (08:26→12:01)
[2018-09-24] MEDS: CARVEDILOL 3.125 MG TABLET PO SCH (10:19)
[2018-09-24] MEDS: GUAIFENESIN 600 MG TABLET.SA PO SCH (10:19)
[2018-09-24] MEDS: POTASSIUM CHLORIDE 10 MEQ CAPSULE.ER PO SCH (10:19)
[2018-09-24] MEDS: ENOXAPARIN SODIUM INJ 40 MG/0.4 ML DISP.SYRIN SUBCUT SCH (10:20)
[2018-09-24] MEDS: MAGNESIUM OXIDE 400 MG TABLET PO SCH (10:20)
[2018-09-24] MEDS: DILTIAZEM HCL 240 MG CAPSULE.CR PO SCH (10:20)
[2018-09-24 14:56] VITALS: BP 113/50
[2018-09-24] MEDS ORDERED: PANTOPRAZOLE SODIUM 20 MG TABLET.DR PO SCH (17:00)
--- NOTE | 2018-09-24 17:38 | PDOC DISCHARGE SUMMARY ---
General - Admit/Disc Date/PCP Admission Date/Primary Care Provider: 09/20/18 16:50 JENNIFER MEYER Discharge Date: 09/24/18 - Discharge Diagnosis (1) Acute respiratory failure with hypoxemia Is this a current diagnosis for this admission?: Yes (2) COPD exacerbation Is this a current diagnosis for this admission?: Yes (3) Hypomagnesemia Is this a current diagnosis for this admission?: Yes - Additional Information Resuscitation Status: Full Code Discharge Diet: Diabetic Discharge Activity: Activity As Tolerated, Balance Activity w/Rest Prescriptions: Doxycycline Hyclate 100 mg PO BID #10 capsule Prednisone [Deltasone] 40 mg PO DAILY #10 tablet Home Medications: Albuterol Sulfate [Ventolin 0.083% Neb 2.5 mg/3 mL Ampul] 1 vial NEB Q8HP PRN 07/27/18 Ipratropium/Albuterol Sulfate [Duoneb 3 ml Ampul] 1 vial NEB Q6HP PRN 07/27/18 Carvedilol [Coreg 3.125 mg Tablet] 1 tab PO BID 07/28/18 Metformin HCl 1,000 mg PO BID 07/28/18 Budesonide/Formoterol Fumarate [Symbicort HFA 160-4.5 mcg Inhaler 6 gm] 2 puff IH Q12 inhaler 07/31/18 Diltiazem HCl [Cardizem Cd 240 mg Capsule.cr] 240 mg PO Q12 capsule.cr 07/31/18 Loratadine [Claritin 10 mg Tablet] 10 mg PO DAILY 09/20/18 Doxycycline Hyclate 100 mg PO BID #10 capsule 09/24/18 Prednisone [Deltasone] 40 mg PO DAILY #10 tablet 09/24/18 History of Present Illness History of Present Illness: ADDIE STEWART is a 58 year old female with multiple visits of exacerbation of her COPD. She reports that over the last day or 2 she has noticed increasing shortness of breath. She denies fever or chills. She denies productive cough. She does report postnasal drip. She has a history of seasonal allergies with nasal polyps. She tried several nebulizer treatments at home before presenting to the emergency department. Blood gas on BiPAP revealed pH of 7.36 with a PCO2 47 PO2 of 107 and bicarb of 26. White blood cell count was minimally elevated. She was given nebulizer treatments and steroids and referred to the hospital service for admission. Hospital Course Hospital Course: She responded well to steroids and bronchodilators. She will continue with a burst of prednisone at home along with some doxycycline. She has a nebulizer with some albuterol treatments for it. She was ambulating independently in the room. Her labs and examination were reassuring and she was discharged in good condition. Physical Exam Vital Signs: Temp Pulse Resp BP Pulse Ox 97.6 F 96 16 113/50 L 96 09/24/18 14:55 09/24/18 14:55 09/24/18 14:55 09/24/18 14:55 09/24/18 14:55 Intake & Output 09/23/18 09/24/18 09/25/18 06:59 06:59 06:59 Intake Total 1405 1421 Output Total 1750 1300 Balance -345 121 Weight 74.2 kg 74 kg General appearance: PRESENT: no acute distress, well-developed, well-nourished, other - She is receiving O2 via nasal canula Respiratory exam: PRESENT: decreased breath sounds, end expiratory wheezes Cardiovascular exam: PRESENT: RRR. ABSENT: diastolic murmur, rubs, systolic murmur GI/Abdominal exam: PRESENT: normal bowel sounds, soft. ABSENT: distended, guarding, mass, organolmegaly, rebound, tenderness Extremities exam: PRESENT: full ROM. ABSENT: calf tenderness, clubbing, pedal edema Neurological exam: PRESENT: alert, awake, oriented to person, oriented to place, oriented to time, oriented to situation, CN II-XII grossly intact. ABSENT: motor sensory deficit Skin exam: PRESENT: dry, intact, warm. ABSENT: cyanosis, rash Results Laboratory Results: 09/22/18 04:14 09/22/18 04:14 09/20/18 09/20/18 09/20/18 14:59 14:59 22:53 Creatine Kinase 58 CK-MB (CK-2) 0.42 Troponin I < 0.012 < 0.012 Impressions: Chest X-Ray 09/21/18 06:00 IMPRESSION: NO ACUTE RADIOGRAPHIC FINDING IN THE CHEST. Qualifiers - * PATIENT BEING DISCHARGED WITH ANY OF THE FOLLOWING DIAGNOSIS: No
== END 2018-09-24 15:17 | disposition home or self-care (01) | DRG 189 ==
LOC: ER 14:38 → EH 16:50 → 3N 09-21 00:09
PROVIDERS: ADMIT Internal Medicine; ATTEND Internal Medicine
DX: J96.01 Acute respiratory failure with hypoxia (principal); J44.1 Chronic obstructive pulmonary disease with (acute) exacerbation; E83.42 Hypomagnesemia; I10 Essential (primary) hypertension; E87.6 Hypokalemia; E11.8 Type 2 diabetes mellitus with unspecified complications; Z79.84 Long term (current) use of oral hypoglycemic drugs; Z79.51 Long term (current) use of inhaled steroids; Z79.899 Other long term (current) drug therapy
CPT/HCPCS: 36415; 71045; 80048; 80053; 82550; 82553; 82803; 82962; 83036; 83690; 83735; 84484; 85025; 85610; 87070; 87205; 93005; 93010; 94640; 94660; 96374; 96375; 99291; J0456; J1815; J2920; J2930; J3105; J3475; J3490; J7060; J7620

== ENCOUNTER 2018-10-17 11:16 | Emergency (ER) | payer MEDICAID ==
[2018-10-17 11:23] VITALS: BP 134/81
--- NOTE | 2018-10-17 12:09 | ER Document Report ---
ED Respiratory Problem - General Chief Complaint: Sinus Congestion Stated Complaint: HEAD CONGESTION Time Seen by Provider: 10/17/18 11:41 Primary Care Provider: BONIFACIO MELENDEZ FNP-C [Primary Care Provider] - Follow up in 3-5 days Mode of Arrival: Ambulatory Information source: Patient Notes: 58-year-old female presents to ED for complaint of cough cold congestion with postnasal drip. She states she has a history of COPD and cough and she was concerned so she came in. She states she is been taking Coricidin HB and Flonase with no relief. She states she can get into see her doctor tomorrow but not today. She states she is been sick since Thursday. She is alert oriented respirations regular and unlabored speaking in full sentences walks with a even steady gait. Lungs are clear to auscultation at this time. She is a former smoker. TRAVEL OUTSIDE OF THE [place] IN LAST 30 DAYS: No - HPI Patient complains to provider of: COPD, Cough Onset: Last week - Thursday Initiating Event: URI Quality of pain: Achy Severity: Mild Pain Level: 1 Context: Hx asthma, Hx COPD Cough: Nonproductive Sputum amount: None Associated symptoms: Congestion, Cough, PND, Runny nose, Sinus pain/pressure. denies: Fever Similar symptoms previously: Yes Recently seen / treated by doctor: No - Related Data Allergies/Adverse Reactions: benzonatate [From Tesjacque [place]] Allergy (Verified 08/20/18 10:01) RCING HEARTBEART NSAIDS (Non-Steroidal Anti-Inflamma Allergy (Verified 08/20/18 10:01) RACING HEARTBEAT Past Medical History - General Information source: Patient - Social History Smoking Status: Former Smoker Frequency of alcohol use: None Drug Abuse: None Lives with: Family Family History: COPD, DM, Hypertension Patient has suicidal ideation: No Patient has homicidal ideation: No - Past Medical History Cardiac Medical History: Reports: Hx Hypertension Pulmonary Medical History: Reports: Hx Asthma, Hx Bronchitis, Hx COPD, Hx Pneumonia, Hx Respiratory Failure EENT Medical History: Reports: None Neurological Medical History: Reports: None Endocrine Medical History: Reports: Hx Diabetes Mellitus Type 2 Renal/ Medical History: Reports: None Malignancy Medical History: Reports: None GI Medical History: Reports: None Musculoskeletal Medical History: Reports Hx Arthritis Skin Medical History: Reports None Psychiatric Medical History: Reports: None Traumatic Medical History: Reports: None Infectious Medical History: Reports: None Surgical Hx: Negative Past Surgical History: Reports: None - Immunizations Immunizations up to date: Yes Hx Diphtheria, Pertussis, Tetanus Vaccination: Yes Review of Systems - Review of Systems Constitutional: No symptoms reported EENT: Ear pain, Nose congestion, Nose discharge, Sinus pressure, Sinus discharge Cardiovascular: No symptoms reported Respiratory: Cough Gastrointestinal: No symptoms reported Genitourinary: No symptoms reported Female Genitourinary: No symptoms reported Musculoskeletal: No symptoms reported Skin: No symptoms reported Hematologic/Lymphatic: No symptoms reported Neurological/Psychological: No symptoms reported -: Yes All other systems reviewed and negative Physical Exam - Vital signs Vitals: Temp Pulse Resp BP Pulse Ox 98.1 F 95 16 134/81 H 97 10/17/18 11:22 10/17/18 11:22 10/17/18 11:22 10/17/18 11:22 10/17/18 11:22 Interpretation: Normal - General General appearance: Appears well, Alert - HEENT Head: Normocephalic, Atraumatic Eyes: Normal Pupils: PERRL Ears: Normal External canal: Normal Tympanic membrane: Normal Sinus: Normal Nasal: Purulent discharge, Swelling Mouth/Lips: Normal Mucous membranes: Normal Pharynx: Post nasal drainage Neck: Normal - Respiratory Respiratory status: No respiratory distress Chest status: Nontender Breath sounds: Normal Chest palpation: Normal - Cardiovascular Rhythm: Regular Heart sounds: Normal auscultation Murmur: No - Abdominal Inspection: Normal Distension: No distension Bowel sounds: Normal Tenderness: Nontender Organomegaly: No organomegaly - Back Back: Normal, Nontender - Extremities General upper extremity: Normal inspection, Nontender, Normal color, Normal ROM, Normal temperature General lower extremity: Normal inspection, Nontender, Normal color, Normal ROM, Normal temperature, Normal weight bearing. No: Eleni's sign - Neurological Neuro grossly intact: Yes Cognition: Normal Orientation: AAOx4 [place] Coma Scale Eye Opening: Spontaneous [place] Coma Scale Verbal: Oriented [place] Coma Scale Motor: Obeys Commands Sandy Coma Scale Total: 15 Speech: Normal Motor strength normal: LUE, RUE, LLE, RLE Sensory: Normal - Psychological Associated symptoms: Normal affect, Normal mood - Skin Skin Temperature: Warm Skin Moisture: Dry Skin Color: Normal Course - Re-evaluation Re-evalutation: 10/17/18 12:11 After performing a Medical Screening Examination, I estimate there is LOW risk for ACUTE CORONARY SYNDROME, RESPIRATORY FAILURE, SEPSIS OR MENINGITIS, thus I consider the discharge disposition reasonable. I have reevaluated this patient multiple times and no significant life threatening changes are noted. The patient and I have discussed the diagnosis and risks, and we agree with discharging home with close follow-up. We also discussed returning to the Emergency Department immediately if new or worsening symptoms occur. We have discussed the symptoms which are most concerning (e.g., changing or worsening pain, trouble swallowing or breathing, neck stiffness, fever) that necessitate immediate return. - Vital Signs Vital signs: Temp Pulse Resp BP Pulse Ox 98.1 F 95 16 134/81 H 97 10/17/18 11:22 10/17/18 11:22 10/17/18 11:22 10/17/18 11:22 10/17/18 11:22 Discharge - Discharge Clinical Impression: URI (upper respiratory infection) Qualifiers: URI type: unspecified viral URI Qualified Code(s): J06.9 - Acute upper respiratory infection, unspecified Condition: Stable Disposition: HOME, SELF-CARE Additional Instructions: UPPER RESPIRATORY ILLNESS: You have a viral infection of the respiratory passages -- a "cold." This common infection causes nasal congestion, drainage, and often sore throat and cough. It is highly contagious. The disease usually lasts about 10 to 14 days. There is no "cure" for the viral infection -- it must run its course. If there is a complication, such as bacterial infection in the nose, sinuses, middle ear, or bronchial tubes, antibiotics may be required. The antibiotics won't affect the virus. Drink plenty of fluids. A humidifier may help. An expectorant medication or decongestant may make you more comfortable. Use acetaminophen or ibuprofen for fever or aches. See the doctor if fever persists over two days, if there is any significant worsening of your symptoms, or if you simply fail to improve as expected. Your assessment is consistent with upper respiratory infection. Continue to use your Coricidin HB as well as Flonase nasal spray. Also use salt and soda solution gargles which will remove the drainage from the back your throat and reduce your cough. You can also use [id number] cough drops to reduce your cough. These call your primary care doctor tomorrow and schedule a follow-up appointment for other suggestions from your primary care USE OF ACETAMINOPHEN (Tylenol): Acetaminophen may be taken for pain relief or fever control. It's much safer than aspirin, offering a wider range of "safe" dosages. It is safe during . Some brand names are Tylenol, Panadol, Datril, Anacin 3, Tempra, and Liquiprin. Acetaminophen can be repeated every four hours. The following are maximum recommended dosages: >89 pounds or adults 650 mg to 900 mg Acetaminophen can be repeated every four hours. Maximum dose not to exceed 4000 mg a day. Salt and soda solution 1 quart of water 1 tablespoon of salt 1 teaspoon of baking soda Mixed 3 ingredients together and boil for 1 minute Placed in a covered quart jar Use 1/2 ounce of cold solution to gargle 3 times a day FOLLOW-UP CARE: If you have been referred to a physician for follow-up care, call the physicians office for an appointment as you were instructed or within the next two days. If you experience worsening or a significant change in your symptoms, notify the physician immediately or return to the Emergency Department at any time for re-evaluation. Forms: Elevated Blood Pressure Referrals: BONIFACIO MELENDEZ FNP-C [Primary Care Provider] - Follow up in 3-5 days
== END 2018-10-17 12:07 | disposition home or self-care (01) ==
LOC: ER 11:16
DX: J06.9 Acute upper respiratory infection, unspecified (principal); R09.81 Nasal congestion; E11.9 Type 2 diabetes mellitus without complications; I10 Essential (primary) hypertension
CPT/HCPCS: 99283

== ENCOUNTER 2018-10-26 15:19 | Emergency (ER) | payer MEDICAID ==
[2018-10-26] MEDS ORDERED: METHYLPREDNISOLONE INJ 125 MG/2 ML SDV IV ONE (16:39)
[2018-10-26] MEDS ORDERED: IPRATROPIUM/ALBUTEROL 0.5-2.5 MG/3 ML AMPUL NEB ONE ×2 (16:39→18:01)
--- NOTE | 2018-10-26 16:41 | ER Document Report ---
ED Medical Screen (RME) - General Chief Complaint: Shortness Of Breath Stated Complaint: SHORTNESS OF BREATH Time Seen by Provider: 10/26/18 16:23 Primary Care Provider: BONIFACIO MELENDEZ FNP-C [Primary Care Provider] - Follow up as needed Mode of Arrival: Ambulatory Information source: Patient Notes: 58-year-old female presents to ED for cough cold congestion with a history of COPD asthma bronchitis pneumonia and a history of respiratory failure. She was here recently with an upper respiratory infection but she states it got much worse over the last couple days. She states she has not followed up with her primary care doctor as she was instructed. She states yesterday she had to use her breathing treatment 5 times in the day she is already used it 3 times and the wheezing has gotten worse. She states she became concerned so she came to the emergency room. When she was seen in the front lobby wrote her sat is 93% when I checked her in the room her sat was running between 88 and 90. I have started on 2 L O2 ordered steroids, lab work, chest x-ray, monitor and she will be transferred to the main ED for evaluation and treatment. I have also ordered a chest x-ray. Patient has inspiratory and expiratory wheezes at the time of examination. I have greeted and performed a rapid initial assessment of this patient. A comprehensive ED assessment and evaluation of the patient, analysis of test results and completion of medical decision making process will be conducted by an additional ED providers. TRAVEL OUTSIDE OF THE [place] IN LAST 30 DAYS: No - Related Data Allergies/Adverse Reactions: benzonatate [From Tessalon Perles] Allergy (Verified 10/26/18 15:23) RCING HEARTBEART NSAIDS (Non-Steroidal Anti-Inflamma Allergy (Verified 10/26/18 15:23) RACING HEARTBEAT Past Medical History - Past Medical History Cardiac Medical History: Reports: Hx Hypertension Denies: Hx Atrial Fibrillation, Hx Coronary Artery Disease, Hx DVT, Hx Pulmonary Embolism Pulmonary Medical History: Reports: Hx Asthma, Hx Bronchitis, Hx COPD, Hx Pneumonia, Hx Respiratory Failure Denies: Hx Intubation Neurological Medical History: Denies: Hx Seizures Endocrine Medical History: Reports: Hx Diabetes Mellitus Type 2. Denies: Hx Diabetes Mellitus Type 1, Hx Hyperthyroidism, Hx Hypothyroidism Renal/ Medical History: Denies: Hx Peritoneal Dialysis GI Medical History: Denies: Hx Cirrhosis, Hx Gastroesophageal Reflux Disease, Hx Hepatitis Musculoskeltal Medical History: Reports Hx Arthritis, Denies Hx Gout Skin Medical History: Denies Hx Eczema, Denies Hx Psoriasis Psychiatric Medical History: Denies: Hx Depression Infectious Medical History: Denies: Hx Hepatitis - Immunizations Immunizations up to date: Yes Hx Diphtheria, Pertussis, Tetanus Vaccination: Yes History of Influenza Vaccine for 04/2017 - 09/2017 Season: Yes Influenza Administration Date for 04/2017 - 09/2017 Season: 04/12/17 Physical Exam - Vital signs Vitals: Temp Pulse Resp BP Pulse Ox 97.9 F 104 H 20 116/68 93 10/26/18 15:37 10/26/18 15:37 10/26/18 15:37 10/26/18 15:37 10/26/18 15:37 Course - Vital Signs Vital signs: Temp Pulse Resp BP Pulse Ox 97.9 F 103 H 30 H 136/61 H 90 L 10/26/18 15:37 10/26/18 16:33 10/26/18 16:33 10/26/18 16:33 10/26/18 16:33 Doctor's Discharge - Discharge Referrals: BONIFACIO MELENDEZ FNP-C [Primary Care Provider] - Follow up as needed
[2018-10-26 17:09] LABS: ABSOLUTE BASOPHILS # (AUTO) 0.1 10^3/uL (0.0-0.2); ABSOLUTE EOSINOPHILS # (AUTO) 0.4 10^3/uL (0.0-0.6); ABSOLUTE LYMPHOCYTES (AUTO) 2.5 10^3/uL (0.5-4.7); ABSOLUTE MONOCYTES (AUTO) 1.1 10^3/uL (0.1-1.4); ABSOLUTE NEUT (AUTO) 6.4 10^3/uL (1.7-8.2); BASOPHILS % (AUTO) 0.9 % (0-2); EOSINOPHILS % (AUTO) 3.7 % (0-6); HEMATOCRIT 36.9 % (36.0-47.0); HEMOGLOBIN 12.6 g/dL (12.0-15.5); LYMPHOCYTES % (AUTO) 24.1 % (13-45); MEAN CORPUSCULAR HEMOGLOBIN 26.8 pg (27.0-33.4); MEAN CORPUSCULAR HGB CONC 34.1 g/dL (32.0-36.0); MEAN CORPUSCULAR VOLUME 79 fl (80-97); MONOCYTES % (AUTO) 10.1 % (3-13); PLATELET COUNT 382 10^3/uL (150-450); RED BLOOD COUNT 4.69 10^6/uL (3.72-5.28); RED CELL DISTRIBUTION WIDTH 14.9 % (11.5-14.0); SEGMENTED NEUTROPHILS % (AUTO) 61.2 % (42-78); TOTAL CELLS COUNTED % (AUTO) 100 %; WHITE BLOOD COUNT 10.5 10^3/uL (4.0-10.5)
--- NOTE | 2018-10-26 17:28 | RADIOLOGY REPORT (SQ) ---
EXAM DESCRIPTION: CHEST 2 VIEWS COMPLETED DATE/TIME: 10/26/2018 5:14 pm REASON FOR STUDY: cough congestion, wheezing COMPARISON: 09/21/2018 EXAM PARAMETERS: NUMBER OF VIEWS: two views TECHNIQUE: Digital Frontal and Lateral radiographic views of the chest acquired. RADIATION DOSE: NA LIMITATIONS: none FINDINGS: LUNGS AND PLEURA: Mild prominence of the perihilar interstitial markings and bilateral pe ribronchial cuffing may be on the basis of reactive airway disease versus viral syndrome. No acute p ulmonary consolidation. No pneumothorax or pleural effusion. MEDIASTINUM AND HILAR STRUCTURES: No masses or contour abnormalities. HEART AND VASCULAR STRUCTURES: Heart normal size. No evidence for failure. BONES: No acute findings. HARDWARE: None in the chest. OTHER: No other significant finding. IMPRESSION: 1. Mild prominence of the perihilar interstitial markings and bilateral peribronchial c uffing may be on the basis of reactive airway disease versus viral syndrome. TECHNICAL DOCUMENTATION: JOB ID: [id number] [employer]- All Rights Reserved Reading location - IP/workstation name: [email or web address]
[2018-10-26 17:29] LABS: ALANINE AMINOTRANSFERASE 32 U/L (9-52); ALBUMIN 4.4 g/dL (3.5-5.0); ALKALINE PHOSPHATASE 85 U/L (38-126); ANION GAP 11 (5-19); ASPARTATE AMINO TRANSFERASE 20 U/L (14-36); BILIRUBIN,DIRECT 0.3 mg/dL (0.0-0.4); BILIRUBIN,TOTAL 0.6 mg/dL (0.2-1.3); BLOOD UREA NITROGEN 12 mg/dL (7-20); CARBON DIOXIDE 29 mmol/L (22-30); CHLORIDE 104 mmol/L (98-107); GLUCOSE 97 mg/dL (75-110); POTASSIUM 3.6 mmol/L (3.6-5.0); SODIUM 143.8 mmol/L (137-145); TOTAL PROTEIN 7.3 g/dL (6.3-8.2)
[2018-10-26] MEDS ORDERED: BUDESONIDE NEB 0.5 MG/2 ML AMPUL NEB ONE (18:01)
[2018-10-26] MEDS ORDERED: DOXYCYCLINE HYCLATE 100 MG TABLET PO ONE (19:38)
--- NOTE | 2018-10-26 22:16 | ER Document Report ---
ED General - General Chief Complaint: Shortness Of Breath Stated Complaint: SHORTNESS OF BREATH Time Seen by Provider: 10/26/18 16:23 Primary Care Provider: BONIFACIO MELENDEZ FNP-C [Primary Care Provider] - Follow up in 3-5 days Mode of Arrival: Ambulatory Notes: Patient is a 58-year-old female with history of COPD and asthma that presents to the emergency department for chief complaint of shortness of breath and wheezing. Patient reports her symptoms have gotten progressively worse over the past several days, to the point where she decided come to the emergency department. She does have inhalers at home and a nebulizer machine, but states that they are not helping improve her symptoms. She has had a dry cough associated with this, denies having any fevers, chills, night sweats. She states she was recently in the ER and diagnosed with an upper respiratory tract infection. Denies having any chest pain, nausea, vomiting, diaphoresis. Past Medical History: COPD, asthma, hypertension Past Surgical History: Reviewed, and negative for any pertinent surgical history Social History: Admits to being a former smoker, denies alcohol or drug use. Family History: Reviewed and noncontributory for presenting illness Allergies: Reviewed, see documented allergy list. REVIEW OF SYSTEMS: Other than noted above, the 12 point review of systems was reviewed with the patient and were negative, all pertinent findings are included in the HPI. PHYSICAL EXAMINATION: Vital signs reviewed, nursing noted reviewed. GENERAL: Obese female, mild increased work of breathing. HEAD: Atraumatic, normocephalic. EYES: Eyes appear normal, extraocular movements intact, sclera anicteric, conjunctiva are normal. ENT: nares patent, oropharynx clear without exudates. Moist mucous membranes. NECK: Normal range of motion, supple without lymphadenopathy LUNGS: Bilateral wheezing noted throughout all lung preciado, mild increased work of breathing. HEART: Regular rate and rhythm without murmurs ABDOMEN: Soft, nontender, normoactive bowel sounds. No rebound, guarding, or rigidity. No masses appreciated. EXTREMITIES: Nontender, good range of motion, no pitting or edema. NEUROLOGICAL: No focal neurological deficits. Moves all extremities spontaneously Motor and sensory grossly intact on exam. PSYCH: Normal mood, normal affect. SKIN: Warm, Dry, normal turgor, no rashes or lesions noted on exposed skin TRAVEL OUTSIDE OF THE [place] IN LAST 30 DAYS: No - Related Data Allergies/Adverse Reactions: benzonatate [From Tesjacque Blanco] Allergy (Verified 10/26/18 15:23) RCING HEARTBEART NSAIDS (Non-Steroidal Anti-Inflamma Allergy (Verified 10/26/18 15:23) RACING HEARTBEAT Past Medical History - General Information source: Patient - Social History Smoking Status: Former Smoker Frequency of alcohol use: None Drug Abuse: None Family History: COPD, DM, Hypertension Patient has suicidal ideation: No Patient has homicidal ideation: No - Past Medical History Cardiac Medical History: Reports: Hx Hypertension Denies: Hx Atrial Fibrillation, Hx Coronary Artery Disease, Hx DVT, Hx Pulmonary Embolism Pulmonary Medical History: Reports: Hx Asthma, Hx Bronchitis, Hx COPD, Hx Pneumonia, Hx Respiratory Failure Denies: Hx Intubation Neurological Medical History: Denies: Hx Seizures Endocrine Medical History: Reports: Hx Diabetes Mellitus Type 2. Denies: Hx Diabetes Mellitus Type 1, Hx Hyperthyroidism, Hx Hypothyroidism Renal/ Medical History: Denies: Hx Peritoneal Dialysis GI Medical History: Denies: Hx Cirrhosis, Hx Gastroesophageal Reflux Disease, Hx Hepatitis Musculoskeletal Medical History: Reports Hx Arthritis, Denies Hx Gout Skin Medical History: Denies Hx Eczema, Denies Hx Psoriasis Psychiatric Medical History: Denies: Hx Depression Infectious Medical History: Denies: Hx Hepatitis - Immunizations Immunizations up to date: Yes Hx Diphtheria, Pertussis, Tetanus Vaccination: Yes Physical Exam - Vital signs Vitals: Temp Pulse Resp BP Pulse Ox 97.9 F 104 H 20 116/68 93 10/26/18 15:37 10/26/18 15:37 10/26/18 15:37 10/26/18 15:37 10/26/18 15:37 Course - Re-evaluation Re-evalutation: Patient seen and examined vital signs reviewed. Laboratory data and/or imaging were ordered as appropriate for the patient's presenting symptoms and complaint, with consideration of any critical or life threatening conditions that may be associated with their obtained history and exam as noted above. Patient was treated with IV Solu-Medrol, DuoNeb breathing treatments and inhaled budesonide Results were reviewed when available and demonstrated perihilar fullness, no focal pneumonia The patient was re-evaluated and was improved, no longer hypoxic on room air Evaluation was most consistent with acute exacerbation of COPD, patient will be given prescription for prednisone, as well as inhaled budesonide, and to follow- up with her primary care physician, patient was agreeable to this plan of care. Results were discussed with the patient at this point, after careful consideration I feel that that patient can be discharged from the emergency department, the patient was educated treatments and reasons to return to the emergency department based on their presumed diagnosis as noted above, they were advised to followup with a primary care physician in 2-3 days. Patient was agree able to plan of care. *Note is created using voice recognition software and may contain spelling, s yntax or grammatical errors. Microbiology 10/26/18 18:15 Blood Culture - Preliminary Blood NO GROWTH IN 24 HOURS 10/26/18 16:45 Blood Culture - Preliminary Blood NO GROWTH IN 24 HOURS Laboratory 10/26/18 10/26/18 16:45 16:45 WBC 10.5 RBC 4.69 Hgb 12.6 Hct 36.9 MCV 79 L MCH 26.8 L MCHC 34.1 RDW 14.9 H Plt Count 382 Seg Neutrophils % 61.2 Lymphocytes % 24.1 Monocytes % 10.1 Eosinophils % 3.7 Basophils % 0.9 Absolute Neutrophils 6.4 Absolute Lymphocytes 2.5 Absolute Monocytes 1.1 Absolute Eosinophils 0.4 Absolute Basophils 0.1 Sodium 143.8 Potassium 3.6 Chloride 104 Carbon Dioxide 29 Anion Gap 11 BUN 12 Creatinine 0.64 Est GFR ( Amer) > 60 Est GFR (Non-Af Amer) > 60 Glucose 97 Calcium 10.0 Total Bilirubin 0.6 Direct Bilirubin 0.3 Neonat Total Bilirubin Not Reportable Neonat Direct Bilirubin Not Reportable Neonat Indirect Bili Not Reportable AST 20 ALT 32 Alkaline Phosphatase 85 Total Protein 7.3 Albumin 4.4 Chest X-Ray 10/26/18 16:38 IMPRESSION: 1. Mild prominence of the perihilar interstitial markings and b ilateral peribronchial cuffing may be on the basis of reactive airway disease versus viral syndrome. - Vital Signs Vital signs: Temp Pulse Resp BP Pulse Ox 98.2 F 103 H 17 113/54 L 98 10/26/18 22:00 10/26/18 16:33 10/26/18 22:01 10/26/18 22:00 10/26/18 22:01 - Laboratory Result Diagrams: 10/26/18 16:45 10/26/18 16:45 Laboratory results interpreted by me: 10/26/18 16:45 MCV 79 L MCH 26.8 L RDW 14.9 H Discharge - Discharge Clinical Impression: Acute exacerbation of chronic obstructive pulmonary disease (COPD) Condition: Stable Disposition: HOME, SELF-CARE Instructions: Chronic Obstructive Lung Disease ([facility]) Additional Instructions: Please use your albuterol nebulizer 4 times daily at least for the next 5 days, take the newly prescribed budesonide inhaler, twice daily, and take the prescribed oral steroid for the next 5 days. Please follow-up with your primary care physician. Prescriptions: RX: Budesonide [Pulmicort] 0.5 mg IH BID #30 ampul.neb RX: Prednisone [Deltasone] 60 mg PO DAILY #15 tablet Referrals: BONIFACIO MELENDEZ FNP-C [Primary Care Provider] - Follow up in 3-5 days
[2018-10-26 22:23] VITALS: BP 113/54
== END 2018-10-26 22:33 | disposition home or self-care (01) ==
LOC: ER 15:19
DX: J44.1 Chronic obstructive pulmonary disease with (acute) exacerbation (principal); R06.02 Shortness of breath; R05 Cough; I10 Essential (primary) hypertension; E66.9 Obesity, unspecified; E11.9 Type 2 diabetes mellitus without complications; Z87.891 Personal history of nicotine dependence; Z88.8 Allergy status to other drugs, medicaments and biological substances
CPT/HCPCS: 94640 ×2; 99285; 96374; 36415; 87040; 85025; 80053; 71046; J3490 ×2; J2930; J7620

== ENCOUNTER 2018-10-28 07:57 | Emergency (ER) | payer MEDICAID ==
[2018-10-28] MEDS ORDERED: IPRATROPIUM/ALBUTEROL 0.5-2.5 MG/3 ML AMPUL NEB ONE (08:52)
[2018-10-28] MEDS ORDERED: PREDNISONE 20 MG TABLET PO ONE (08:52)
[2018-10-28] MEDS: ALBUTEROL SULFATE 0.083% NEB 2.5 MG/3 ML AMPUL NEB SCH ×2 (09:09→09:31)
--- NOTE | 2018-10-28 09:25 | RADIOLOGY REPORT (SQ) ---
EXAM DESCRIPTION: CHEST SINGLE VIEW COMPLETED DATE/TIME: 10/28/2018 9:06 am REASON FOR STUDY: wheezing COMPARISON: 10/26/2018 EXAM PARAMETERS: NUMBER OF VIEWS: One view. TECHNIQUE: Single frontal radiographic view of the chest acquired. RADIATION DOSE: NA LIMITATIONS: None. FINDINGS: LUNGS AND PLEURA: Unchanged elevation of the left hemidiaphragm. MEDIASTINUM AND HILAR STRUCTURES: No masses. Contour normal. HEART AND VASCULAR STRUCTURES: Heart normal in size. Normal vasculature. BONES: No acute findings. HARDWARE: None in the chest. OTHER: No other significant finding. IMPRESSION: No acute abnormality of the lungs. Unchanged elevation of the left hemidiaphragm. TECHNICAL DOCUMENTATION: JOB ID: [id number] [employer]- All Rights Reserved Reading location - IP/workstation name: [email or web address]
[2018-10-28] MEDS ORDERED: ALBUTEROL SULFATE 0.083% NEB 2.5 MG/3 ML AMPUL NEB ONE (09:28)
--- NOTE | 2018-10-28 09:35 | ER Document Report ---
ED General - General Chief Complaint: Chest Pain Stated Complaint: SHORTNESS OF BREATH Time Seen by Provider: 10/28/18 09:14 Primary Care Provider: BONIFACIO MELENDEZ FNP-C [Primary Care Provider] - Follow up as needed TRAVEL OUTSIDE OF THE [place] IN LAST 30 DAYS: No - HPI Notes: Patient is a 58-year-old that presents to the emergency department for chief complaint of shortness of breath and chest tightness. Patient reports having a COPD exacerbation for the last few days. She was seen here 2 days ago and prescribed Pulmicort and prednisone. She states she had the prescriptions filled yesterday and did due to doses of the Pulmicort and 1 dose of prednisone yesterday. Around 1 AM she had increased shortness of breath. She states that she did an albuterol nebulizer at 1, 4, and 6 AM with some improvement. She describes a tightness across her anterior chest which she states is typical when she gets COPD exacerbations. She does report some mild increased sputum production but denies fevers and chills. She denies any severe chest pain or new pain in her chest compared to the tightness that she experiences with COPD. She does not wear home oxygen Past Medical History: COPD Past Surgical History: Reviewed in chart Social History: Reviewed in chart Family History: Reviewed and noncontributory for presenting illness Allergies: Reviewed, see documented allergy list. REVIEW OF SYSTEMS: CONSTITUTIONAL : No fever No chills No diaphoresis No recent illness EENT: No vision changes No congestion No sore throat CARDIOVASCULAR: No chest pain No palpitations RESPIRATORY: shortness of breath cough difficulty breathing GASTROINTESTINAL: No abdominal pain No nausea No vomiting No diarrhea GENITOURINARY: No dysuria No hematuria No difficulty urinating MUSCULOSKELETAL: No back pain No leg pain No arm pain SKIN: No rashes No lesions LYMPHATIC: No swollen, enlarged glands. NEUROLOGICAL: No lightheadedness No headache No weakness No paresthesias PSYCHIATRIC: No anxiety No depression PHYSICAL EXAMINATION: Vital signs reviewed, nursing noted reviewed. GENERAL: Well-appearing, well-nourished and in no acute distress. HEAD: Atraumatic, normocephalic. EYES: Eyes appear normal, extraocular movements intact, sclera anicteric, conjunctiva are normal. ENT: nares patent, oropharynx clear without exudates. Moist mucous membranes. NECK: Normal range of motion, supple without lymphadenopathy LUNGS: Diffuse expiratory wheezing, no tachypnea or accessory muscle use. No acute respiratory distress HEART: Regular rate and rhythm without murmurs ABDOMEN: Soft, nontender, normoactive bowel sounds. No rebound, guarding, or rigidity. No masses appreciated. EXTREMITIES: Nontender, good range of motion, no pitting or edema. NEUROLOGICAL: No focal neurological deficits. Moves all extremities spontaneously Motor and sensory grossly intact on exam. PSYCH: Normal mood, normal affect. SKIN: Warm, Dry, normal turgor, no rashes or lesions noted on exposed skin - Related Data Allergies/Adverse Reactions: benzonatate [From Tessalon PerlThe [employer]] Allergy (Verified 10/28/18 07:59) RCING HEARTBEART NSAIDS (Non-Steroidal Anti-Inflamma Allergy (Verified 10/28/18 07:59) RACING HEARTBEAT Past Medical History - Social History Smoking Status: Never Smoker Family History: COPD, DM, Hypertension - Past Medical History Cardiac Medical History: Reports: Hx Hypertension Denies: Hx Atrial Fibrillation, Hx Coronary Artery Disease, Hx DVT, Hx Pulmonary Embolism Pulmonary Medical History: Reports: Hx Asthma, Hx Bronchitis, Hx COPD, Hx Pneumonia, Hx Respiratory Failure Denies: Hx Intubation Neurological Medical History: Denies: Hx Seizures Endocrine Medical History: Reports: Hx Diabetes Mellitus Type 2. Denies: Hx Diabetes Mellitus Type 1, Hx Hyperthyroidism, Hx Hypothyroidism Renal/ Medical History: Denies: Hx Peritoneal Dialysis GI Medical History: Denies: Hx Cirrhosis, Hx Gastroesophageal Reflux Disease, Hx Hepatitis Musculoskeletal Medical History: Reports Hx Arthritis, Denies Hx Gout Skin Medical History: Denies Hx Eczema, Denies Hx Psoriasis Psychiatric Medical History: Denies: Hx Depression Infectious Medical History: Denies: Hx Hepatitis - Immunizations Immunizations up to date: Yes Hx Diphtheria, Pertussis, Tetanus Vaccination: Yes Physical Exam - Vital signs Vitals: Temp Pulse Resp BP Pulse Ox 97.8 F 107 H 22 H 160/64 H 95 10/28/18 08:05 10/28/18 08:05 10/28/18 08:05 10/28/18 08:05 10/28/18 08:05 Course - Re-evaluation Re-evalutation: 10/28/18 09:32 Vitals reviewed. Nursing notes reviewed. Patient is well-appearing and in no acute respiratory distress. She has received prednisone as well as 1 DuoNeb and 1 albuterol prior to my exam. Patient does have wheezing bilaterally and will be given a third albuterol. She is currently on her breathing treatment but her oxygen saturation is stable. EKG shows tachycardia consistent with her recent albuterol use with no ischemic changes. Her chest pain that she checked in with is described as a tightness which is identical to previous COPD exacerbations she has had in the past. I do not currently suspect ACS. 10/28/18 10:19 Patient's x-ray shows no acute cardia pulmonary process. She is oxygenating at 96% on room air currently. She is in no acute respiratory distress. Patient was ordered Pulmicort and prednisone which she has only taken one day off. She likely needs to continue these medications at home and has not had a long enough course to provide relief of her acute COPD exacerbation. Patient will follow closely with her primary care doctor. She will return for new or worsening symptoms. She is stable at discharge. Chest X-Ray 10/28/18 08:52 IMPRESSION: No acute abnormality of the lungs. Unchanged elevation of the left hemidiaphragm. - Vital Signs Vital signs: Temp Pulse Resp BP Pulse Ox 97.8 F 107 H 22 H 160/64 H 95 10/28/18 08:05 10/28/18 08:05 10/28/18 08:05 10/28/18 08:05 10/28/18 08:05 - EKG Interpretation by Me Additional EKG results interpreted by me: 10/28/18 09:33 Interpreted by myself [id number]: Sinus tachycardia, rate 104, normal axis, no ectopy, no STEMI Discharge - Discharge Clinical Impression: COPD exacerbation Condition: Stable Disposition: HOME, SELF-CARE Instructions: Chronic Obstructive Lung Disease ([facility]) Additional Instructions: Please return to the emergency department if you have any worsening, or concern of your symptoms. Please return to the emergency department if you develop chest pain, difficulty breathing, severe abdominal pain, or ongoing vomiting. Please follow-up with your primary care physician in 2-3 days and any other recommended physicians. If prescribed, take all medications as directed. If you have any questions or concerns do not hesitate to return the emergency department for evaluation. Referrals: BONIFACIO MELENDEZ FNP-C [Primary Care Provider] - Follow up in 3-5 days
[2018-10-28 11:00] VITALS: BP 168/68
--- NOTE | 2018-10-28 15:35 | EKG REPORT ---
SEVERITY:- OTHERWISE NORMAL ECG - SINUS TACHYCARDIA : Confirmed by: Pennie Wilde MD 28-Oct-2018 15:34:49
== END 2018-10-28 11:01 | disposition home or self-care (01) ==
LOC: ER 07:57
DX: J44.1 Chronic obstructive pulmonary disease with (acute) exacerbation (principal); R07.9 Chest pain, unspecified; R06.02 Shortness of breath; Z79.899 Other long term (current) drug therapy; I10 Essential (primary) hypertension; E11.9 Type 2 diabetes mellitus without complications
CPT/HCPCS: 93005; 94640 ×2; 99285; 71045; 93010; J7512; J7620

== ENCOUNTER 2018-11-18 08:36 | Emergency (ER) | payer MEDICAID ==
--- NOTE | 2018-11-18 10:18 | RADIOLOGY REPORT (SQ) ---
EXAM DESCRIPTION: CHEST SINGLE VIEW COMPLETED DATE/TIME: 11/18/2018 10:06 am REASON FOR STUDY: Chest Pain COMPARISON: CT chest 09/02/2018 Chest films 09/21/2018, 10/26/2018, 10/28/2018 EXAM PARAMETERS: NUMBER OF VIEWS: One view. TECHNIQUE: Single frontal radiographic view of the chest acquired. RADIATION DOSE: NA LIMITATIONS: None. FINDINGS: LUNGS AND PLEURA: Minimal chronic scarring left posterior costophrenic sulcus. No acute infiltrates. No pleural effusions. No pneumothorax. MEDIASTINUM AND HILAR STRUCTURES: No masses. Contour normal. HEART AND VASCULAR STRUCTURES: Heart normal in size. Normal vasculature. BONES: No acute findings. HARDWARE: None in the chest. OTHER: No other significant finding. IMPRESSION: NO ACUTE RADIOGRAPHIC FINDING IN THE CHEST. TECHNICAL DOCUMENTATION: JOB ID: [id number] [employer]- All Rights Reserved Reading location - IP/workstation name: [email or web address]
[2018-11-18] MEDS ORDERED: IPRATROPIUM/ALBUTEROL 0.5-2.5 MG/3 ML AMPUL NEB ONE (11:45)
[2018-11-18] MEDS ORDERED: METHYLPREDNISOLONE INJ 125 MG/2 ML SDV IV ONE (11:45)
--- NOTE | 2018-11-18 11:46 | ER Document Report ---
ED Medical Screen (RME) - General Chief Complaint: Chest Pain Stated Complaint: CHEST PAIN Time Seen by Provider: 11/18/18 11:44 Primary Care Provider: BONIFACIO MELENDEZ FNP-C [Primary Care Provider] - Follow up as needed Mode of Arrival: Ambulatory Information source: Patient Notes: Patient presents complaining of left-sided chest pain that started yesterday that is been constant. Patient does report recent nausea vomiting and diarrhea. Patient reports chronic cough due to her COPD. Patient does complain of some shortness of breath as well. States that she is unable to take aspirin. I have greeted and performed a rapid initial assessment of this patient. A comprehensive ED assessment and evaluation of the patient, analysis of test results and completion of the medical decision making process will be conducted by additional ED providers. TRAVEL OUTSIDE OF THE [place] IN LAST 30 DAYS: No - Related Data Allergies/Adverse Reactions: benzonatate [From Tessalon Perles] Allergy (Verified 11/18/18 08:50) RCING HEARTBEART NSAIDS (Non-Steroidal Anti-Inflamma Allergy (Verified 11/18/18 08:50) RACING HEARTBEAT Past Medical History - Past Medical History Cardiac Medical History: Reports: Hx Hypertension Denies: Hx Atrial Fibrillation, Hx Coronary Artery Disease, Hx DVT, Hx Pulmonary Embolism Pulmonary Medical History: Reports: Hx Asthma, Hx Bronchitis, Hx COPD, Hx Pneumonia, Hx Respiratory Failure Denies: Hx Intubation Neurological Medical History: Denies: Hx Seizures Endocrine Medical History: Reports: Hx Diabetes Mellitus Type 2. Denies: Hx Diabetes Mellitus Type 1, Hx Hyperthyroidism, Hx Hypothyroidism Renal/ Medical History: Denies: Hx Peritoneal Dialysis GI Medical History: Denies: Hx Cirrhosis, Hx Gastroesophageal Reflux Disease, Hx Hepatitis Musculoskeltal Medical History: Reports Hx Arthritis, Denies Hx Gout Skin Medical History: Denies Hx Eczema, Denies Hx Psoriasis Psychiatric Medical History: Denies: Hx Depression Infectious Medical History: Denies: Hx Hepatitis - Immunizations Immunizations up to date: Yes Hx Diphtheria, Pertussis, Tetanus Vaccination: Yes History of Influenza Vaccine for 04/2017 - 09/2017 Season: Yes Influenza Administration Date for 04/2017 - 09/2017 Season: 04/12/17 Physical Exam - Vital signs Vitals: Temp Pulse Resp BP Pulse Ox 97.6 F 106 H 18 134/78 H 95 11/18/18 08:46 11/18/18 08:46 11/18/18 08:46 11/18/18 08:46 11/18/18 08:46 - Respiratory Breath sounds: Nonproductive cough, Wheezing - Tight wheezing bilaterally Course - Vital Signs Vital signs: Temp Pulse Resp BP Pulse Ox 97.6 F 106 H 18 134/78 H 95 11/18/18 08:46 11/18/18 08:46 11/18/18 08:46 11/18/18 08:46 11/18/18 08:46 Doctor's Discharge - Discharge Referrals: BONIFACIO MELENDEZ, [employer]-C [Primary Care Provider] - Follow up as needed
[2018-11-18] MEDS: ALBUTEROL SULFATE 0.083% NEB 2.5 MG/3 ML AMPUL NEB SCH ×2 (11:58→12:21)
[2018-11-18 12:19] LABS: ABSOLUTE BASOPHILS # (AUTO) 0.1 10^3/uL (0.0-0.2); ABSOLUTE EOSINOPHILS # (AUTO) 1.1 10^3/uL (0.0-0.6); ABSOLUTE LYMPHOCYTES (AUTO) 1.8 10^3/uL (0.5-4.7); ABSOLUTE MONOCYTES (AUTO) 0.5 10^3/uL (0.1-1.4); BASOPHILS % (AUTO) 0.7 % (0-2); EOSINOPHILS % (AUTO) 14.7 % (0-6); HEMATOCRIT 37.5 % (36.0-47.0); HEMOGLOBIN 12.6 g/dL (12.0-15.5); LYMPHOCYTES % (AUTO) 24.1 % (13-45); MEAN CORPUSCULAR HEMOGLOBIN 26.8 pg (27.0-33.4); MEAN CORPUSCULAR HGB CONC 33.6 g/dL (32.0-36.0); MEAN CORPUSCULAR VOLUME 80 fl (80-97); MONOCYTES % (AUTO) 6.6 % (3-13); PLATELET COUNT 346 10^3/uL (150-450); RED BLOOD COUNT 4.71 10^6/uL (3.72-5.28); RED CELL DISTRIBUTION WIDTH 14.8 % (11.5-14.0); SEGMENTED NEUTROPHILS % (AUTO) 53.9 % (42-78); TOTAL CELLS COUNTED % (AUTO) 100 %; WHITE BLOOD COUNT 7.4 10^3/uL (4.0-10.5)
[2018-11-18 12:30] LABS: INTERNATIONAL RATION (INR) 0.92; PROTHROMBIN TIME 12.8 SEC (11.4-15.4)
[2018-11-18 12:50] LABS: ALANINE AMINOTRANSFERASE 32 U/L (9-52); ALBUMIN 4.1 g/dL (3.5-5.0); ALKALINE PHOSPHATASE 87 U/L (38-126); ANION GAP 8 (5-19); ASPARTATE AMINO TRANSFERASE 15 U/L (14-36); BILIRUBIN,DIRECT 0.2 mg/dL (0.0-0.4); BILIRUBIN,TOTAL 0.4 mg/dL (0.2-1.3); BLOOD UREA NITROGEN 7 mg/dL (7-20); CALCIUM 9.9 mg/dL (8.4-10.2); CARBON DIOXIDE 33 mmol/L (22-30); CHLORIDE 104 mmol/L (98-107); CREATINE KINASE 35 U/L (30-135); GLUCOSE 115 mg/dL (75-110); POTASSIUM 3.2 mmol/L (3.6-5.0); SODIUM 145.1 mmol/L (137-145); TOTAL PROTEIN 6.7 g/dL (6.3-8.2)
[2018-11-18 13:02] LABS: CREATINE KINASE MB < 0.22 ng/mL (<4.55); TROPONIN I < 0.012 ng/mL
[2018-11-18] MEDS ORDERED: POTASSIUM CHLORIDE 10 MEQ CAPSULE.ER PO ONE (17:17)
--- NOTE | 2018-11-18 17:31 | ER Document Report ---
ED Cardiac - General Chief Complaint: Chest Pain Stated Complaint: CHEST PAIN Time Seen by Provider: 11/18/18 11:44 Primary Care Provider: BONIFACIO MELENDEZ FNP-C [Primary Care Provider] - Follow up as needed Mode of Arrival: Ambulatory Information source: Patient TRAVEL OUTSIDE OF THE [place] IN LAST 30 DAYS: No - HPI Patient complains to provider of: Chest pain Notes: Patient is here with complaints of chest pain. States pain is been going on for the last few days.'s been constant. Nothing makes it better or worse. No significant shortness of breath. Patient has had a cough, she does have COPD an d has had some wheezing. Pain is in the left side of her chest, there is no radiation. No fever. No production to her sputum. No hemoptysis. She denies any recent long trips or surgeries, leg pain or leg swelling, cancer, hormone use, history of DVT or PE. She is a non-smoker. She denies drug use. She has a history of hypertension and diabetes, no history of high cholesterol or CAD. No fever. No rash. No injury. Patient states that she is feeling better at this time after getting breathing treatments from triage. She denies any other specific complaints at this time. - Related Data Allergies/Adverse Reactions: benzonatate [From Wes Blanco] Allergy (Verified 11/18/18 08:50) RCING HEARTBEART NSAIDS (Non-Steroidal Anti-Inflamma Allergy (Verified 11/18/18 08:50) RACING HEARTBEAT Past Medical History - General Information source: Patient - Social History Smoking Status: Former Smoker Frequency of alcohol use: None Drug Abuse: None Family History: COPD, DM, Hypertension Patient has suicidal ideation: No Patient has homicidal ideation: No - Past Medical History Cardiac Medical History: Reports: Hx Hypertension Denies: Hx Atrial Fibrillation, Hx Coronary Artery Disease, Hx DVT, Hx Pulmonary Embolism Pulmonary Medical History: Reports: Hx Asthma, Hx Bronchitis, Hx COPD, Hx Pneumonia, Hx Respiratory Failure Denies: Hx Intubation Neurological Medical History: Denies: Hx Seizures Endocrine Medical History: Reports: Hx Diabetes Mellitus Type 2. Denies: Hx Diabetes Mellitus Type 1, Hx Hyperthyroidism, Hx Hypothyroidism Renal/ Medical History: Denies: Hx Peritoneal Dialysis GI Medical History: Denies: Hx Cirrhosis, Hx Gastroesophageal Reflux Disease, Hx Hepatitis Musculoskeletal Medical History: Reports Hx Arthritis, Denies Hx Gout Skin Medical History: Denies Hx Eczema, Denies Hx Psoriasis Psychiatric Medical History: Denies: Hx Depression Infectious Medical History: Denies: Hx Hepatitis - Immunizations Immunizations up to date: Yes Hx Diphtheria, Pertussis, Tetanus Vaccination: Yes Review of Systems - Review of Systems -: Yes All other systems reviewed and negative Physical Exam - Vital signs Vitals: Temp Pulse Resp BP Pulse Ox 97.6 F 106 H 18 134/78 H 95 11/18/18 08:46 11/18/18 08:46 11/18/18 08:46 11/18/18 08:46 11/18/18 08:46 - Notes Notes: GENERAL: alert, cooperative, nontoxic, no distress. HEAD: normocephalic, atraumatic EYES: conjunctiva pink without discharge, no external redness or swelling. EARS: no external swelling, no external redness NOSE: atraumatic, no external swelling. Nasal congestion noted with clear rhinorrhea. MOUTH/THROAT: mucous membranes moist and pink, posterior pharynx without erythema, swelling, exudate. No trismus or drooling. NECK: soft, supple, full range of motion, no meningismus. CHEST: no distress, lungs clear and equal throughout. Scattered wheezing throughout. Good air movement. CARDIAC: regular rate and rhythm, no murmur, normal capillary refill, normal pulses. No peripheral edema noted. ABDOMEN: Soft, nontender. BACK: full range of motion, no CVA tenderness. EXTREMITIES: full range of motion of all extremities. No redness, no swelling. NEURO: alert and oriented x 3, no focal deficits, full range of motion of all extremities. PYSCH: appropriate mood, affect. Patient is cooperative. SKIN: pink, warm, dry, no rash. Course - Re-evaluation Re-evalutation: 11/18/18 17:28 Patient nontoxic-appearing with stable vitals. Patient here with complaints of some chest pain and mild shortness of breath with cough and wheezing. Patient has a history of COPD. On exam she has some mild expiratory wheezing with good air movement. She is not hypoxic or tachypneic. She is in no distress. She was given breathing treatments and [employer] states she does feel better at this time. EKG shows no acute findings. 2 troponins were negative. The remainder of her labs are unremarkable aside from a slightly low potassium which was repleted. Patient has a heart score of 3. She has no PE risk factors. As the patient is she felt well enough to go home her felt that she needed to be admitted to the hospital, she states that she feels like she can go home. Her pain seems very atypical for ACS. Pain potentially likely to COPD exacerbation. She did feel better after getting some breathing treatments. Patient will be discharged home with prescription for prednisone. Instructions to follow-up with her primary care doctor at the next available appointment. Follow-up sooner if she develops any worsening pain, high fever, persistent vomiting, significant trouble breathing, rash, or for any further concerns. The patient's emergency department workup and current diagnosis were explained to the patient and or family. Follow-up instructions were provided. Medications if prescribed were discussed. Instructions for when to return to the emergency department including specific worrisome symptoms were discussed with the patient and/or family. - Vital Signs Vital signs: Temp Pulse Resp BP Pulse Ox 97.6 F 106 H 18 134/78 H 95 11/18/18 08:46 11/18/18 08:46 11/18/18 08:46 11/18/18 08:46 11/18/18 08:46 - Laboratory Result Diagrams: 11/18/18 12:00 11/18/18 12:00 Laboratory results interpreted by me: 11/18/18 11/18/18 12:00 12:00 MCH 26.8 L RDW 14.8 H Eosinophils % 14.7 H Absolute Eosinophils 1.1 H Sodium 145.1 H Potassium 3.2 L Carbon Dioxide 33 H Glucose 115 H - Diagnostic Test Radiology reviewed: Image reviewed, Reports reviewed - Negative chest x-ray - EKG Interpretation by Fl EKG shows normal: Sinus rhythm, [place], Intervals, QRS Complexes, ST-T Waves Rate: Normal When compared to previous EKG there are: Other - Heart rate 99, no ST elevation or depression. No STEMI. Discharge - Discharge Clinical Impression: COPD exacerbation Chest pain Qualifiers: Chest pain type: unspecified Qualified Code(s): R07.9 - Chest pain, unspecified Condition: Stable Disposition: HOME, SELF-CARE Instructions: Chest Pain of Unclear Cause ([facility]), Chronic Obstructive Lung Disease ([facility]) Additional Instructions: Take medication as prescribed. Follow-up with your doctor at the next available appointment for reevaluation. Follow-up sooner for worsening pain, fever, difficulty breathing or swelling, persistent vomiting, or for any further concerns. Prescriptions: Prednisone [Deltasone 20 mg Tablet] 3 tab PO DAILY 5 Days tablet Forms: Elevated Blood Pressure Referrals: BONIFACIO MELENDEZ FNP-C [Primary Care Provider] - Follow up as needed
[2018-11-18 18:35] VITALS: BP 132/64
--- NOTE | 2018-11-18 19:45 | EKG REPORT ---
SEVERITY:- NORMAL ECG - SINUS RHYTHM : Confirmed by: Pennie Wilde MD 18-Nov-2018 19:44:31
== END 2018-11-18 18:35 | disposition home or self-care (01) ==
LOC: ER 08:36
DX: J44.1 Chronic obstructive pulmonary disease with (acute) exacerbation (principal); R07.9 Chest pain, unspecified; R05 Cough; R06.02 Shortness of breath; I10 Essential (primary) hypertension; E11.9 Type 2 diabetes mellitus without complications; Z88.8 Allergy status to other drugs, medicaments and biological substances; Z87.891 Personal history of nicotine dependence; Z87.01 Personal history of pneumonia (recurrent)
CPT/HCPCS: 93005; 94640 ×2; 99285; 96374; 36415; 82553; 82550; 83690; 85025; 85610; 80053; 84484; 71045; 93010; J2930; J7620

== ENCOUNTER 2018-12-04 20:21 | Emergency (ER) | payer SELFPAY ==
[2018-12-04] MEDS ORDERED: IPRATROPIUM/ALBUTEROL 0.5-2.5 MG/3 ML AMPUL NEB ONE ×2 (20:44→22:38)
[2018-12-04] MEDS ORDERED: METHYLPREDNISOLONE INJ 125 MG/2 ML SDV IV ONE (20:44)
[2018-12-04] MEDS ORDERED: ALBUTEROL SULFATE 0.083% NEB 2.5 MG/3 ML AMPUL NEB ONE (20:44)
--- NOTE | 2018-12-04 20:47 | ER Document Report ---
ED Medical Screen (RME) - General Chief Complaint: Shortness Of Breath Stated Complaint: DIFFICULTY BREATHING Time Seen by Provider: 12/04/18 20:39 Primary Care Provider: BONIFACIO MELENDEZ FNP-C [Primary Care Provider] - Follow up as needed Mode of Arrival: Carried Information source: Patient Notes: 58-year-old female presents to ED for shortness of breath cough congestion wheezing. She states she has had continuous cough started today. She states she always coughs because she has asthma and COPD. She states she has had 3 albuterol treatments today but she continues to wheeze and cough and be short of breath. Patient is alert oriented but she is tachypneic at this time. I have greeted and performed a rapid initial assessment of this patient. A comprehensive ED assessment and evaluation of the patient, analysis of test results and completion of medical decision making process will be conducted by an additional ED providers. Dictation of this chart was performed using voice recognition software; therefore, there may be some unintended grammatical errors. TRAVEL OUTSIDE OF THE [place] IN LAST 30 DAYS: No - Related Data Allergies/Adverse Reactions: benzonatate [From [email or web address]] Allergy (Verified 11/18/18 08:50) RCING HEARTBEART NSAIDS (Non-Steroidal Anti-Inflamma Allergy (Verified 11/18/18 08:50) RACING HEARTBEAT Past Medical History - Social History Chew tobacco use (# tins/day): No Frequency of alcohol use: None Drug Abuse: None - Past Medical History Cardiac Medical History: Reports: Hx Hypertension Denies: Hx Atrial Fibrillation, Hx Coronary Artery Disease, Hx DVT, Hx Pulmonary Embolism Pulmonary Medical History: Reports: Hx Asthma, Hx Bronchitis, Hx COPD, Hx Pneumonia, Hx Respiratory Failure Denies: Hx Intubation Neurological Medical History: Denies: Hx Seizures Endocrine Medical History: Reports: Hx Diabetes Mellitus Type 2. Denies: Hx Diabetes Mellitus Type 1, Hx Hyperthyroidism, Hx Hypothyroidism Renal/ Medical History: Denies: Hx Peritoneal Dialysis GI Medical History: Denies: Hx Cirrhosis, Hx Gastroesophageal Reflux Disease, Hx Hepatitis Musculoskeltal Medical History: Reports Hx Arthritis, Denies Hx Gout Skin Medical History: Denies Hx Eczema, Denies Hx Psoriasis Psychiatric Medical History: Denies: Hx Depression Infectious Medical History: Denies: Hx Hepatitis - Immunizations Immunizations up to date: Yes Hx Diphtheria, Pertussis, Tetanus Vaccination: Yes History of Influenza Vaccine for 04/2017 - 09/2017 Season: Yes Influenza Administration Date for 04/2017 - 09/2017 Season: 04/12/17 Physical Exam - Vital signs Vitals: Temp Pulse Resp BP Pulse Ox 98.7 F 125 H 30 H 135/70 H 92 12/04/18 20:30 12/04/18 20:30 12/04/18 20:30 12/04/18 20:30 12/04/18 20:30 Course - Vital Signs Vital signs: Temp Pulse Resp BP Pulse Ox 98.7 F 125 H 30 H 135/70 H 92 12/04/18 20:30 12/04/18 20:30 12/04/18 20:30 12/04/18 20:30 12/04/18 20:30 Doctor's Discharge - Discharge Referrals: BONIFACIO MELENDEZ FNP-C [Primary Care Provider] - Follow up as needed
[2018-12-04] MEDS ORDERED: NORMAL SALINE 1000 ML 1,000 ML IV ONE (21:39)
[2018-12-04] MEDS ORDERED: HYDROCODONE/ACETAMINOPHEN 5-325 MG TABLET PO ONE (21:40)
[2018-12-04] MEDS ORDERED: ONDANSETRON HCL INJ/PF 4 MG/2 ML SDV IV ONE (21:40)
--- NOTE | 2018-12-04 21:41 | ER Document Report ---
ED Respiratory Problem - General Chief Complaint: Shortness Of Breath Stated Complaint: DIFFICULTY BREATHING Time Seen by Provider: 12/04/18 20:39 Primary Care Provider: BONIFACIO MELENDEZ FNP-C [Primary Care Provider] - Follow up as needed Mode of Arrival: Carried Notes: Patient is a 58-year-old female that comes to the emergency department for chief complaint of wheezing, cough, shortness of breath. She states this is consistent with an exacerbation of her asthma/COPD. She stopped smoking over 25 years ago. She is not on home oxygen. She denies fever/chills. She does report admissions in the past for pneumonia and asthma exacerbation but denies intubation. Remaining medical history is hypertension, type 2 diabetes. TRAVEL OUTSIDE OF THE [place] IN LAST 30 DAYS: No - Related Data Allergies/Adverse Reactions: benzonatate [From [email or web address]] Allergy (Verified 11/18/18 08:50) RCING HEARTBEART NSAIDS (Non-Steroidal Anti-Inflamma Allergy (Verified 11/18/18 08:50) RACING HEARTBEAT Past Medical History - General Information source: Patient - Social History Smoking Status: Former Smoker Chew tobacco use (# tins/day): No Frequency of alcohol use: None Drug Abuse: None Lives with: Family Family History: COPD, DM, Hypertension Patient has suicidal ideation: No Patient has homicidal ideation: No - Past Medical History Cardiac Medical History: Reports: Hx Hypertension Denies: Hx Atrial Fibrillation, Hx Coronary Artery Disease, Hx DVT, Hx Pulmonary Embolism Pulmonary Medical History: Reports: Hx Asthma, Hx Bronchitis, Hx COPD, Hx Pneumonia, Hx Respiratory Failure Denies: Hx Intubation Neurological Medical History: Denies: Hx Seizures Endocrine Medical History: Reports: Hx Diabetes Mellitus Type 2. Denies: Hx Diabetes Mellitus Type 1, Hx Hyperthyroidism, Hx Hypothyroidism Renal/ Medical History: Denies: Hx Peritoneal Dialysis GI Medical History: Denies: Hx Cirrhosis, Hx Gastroesophageal Reflux Disease, Hx Hepatitis Musculoskeletal Medical History: Reports Hx Arthritis, Denies Hx Gout Skin Medical History: Denies Hx Eczema, Denies Hx Psoriasis Psychiatric Medical History: Denies: Hx Depression Infectious Medical History: Denies: Hx Hepatitis - Immunizations Immunizations up to date: Yes Hx Diphtheria, Pertussis, Tetanus Vaccination: Yes Review of Systems - Review of Systems Constitutional: No symptoms reported EENT: No symptoms reported Cardiovascular: No symptoms reported Respiratory: See HPI Gastrointestinal: No symptoms reported Genitourinary: No symptoms reported Female Genitourinary: No symptoms reported Musculoskeletal: No symptoms reported Skin: No symptoms reported Hematologic/Lymphatic: No symptoms reported Neurological/Psychological: No symptoms reported Physical Exam - Vital signs Vitals: Temp Pulse Resp BP Pulse Ox 98.7 F 125 H 30 H 135/70 H 92 12/04/18 20:30 12/04/18 20:30 12/04/18 20:30 12/04/18 20:30 12/04/18 20:30 - Notes Notes: GENERAL: Alert, interacts well. No acute distress. HEAD: Normocephalic, atraumatic. EYES: Pupils equal, round, and reactive to light. Extraocular movements intact. ENT: Oral mucosa moist, tongue midline. Oropharynx unremarkable. Airway patent. NECK: Full range of motion. Supple. Trachea midline. LUNGS: Clear to auscultation bilaterally, no wheezes, rales, or rhonchi. No respiratory distress. HEART: Borderline tachycardia, normal rhythm. No murmur ABDOMEN: Soft, non-tender. Non-distended. Bowel sounds present in all 4 quadrants. GENITOURINARY: Deferred EXTREMITIES: Moves all 4 extremities spontaneously. No edema, normal radial and dorsalis pedis pulses bilaterally. No cyanosis. BACK: no cervical, thoracic, lumbar midline tenderness. No saddle anesthesia, normal distal neurovascular exam. NEUROLOGICAL: Alert and oriented x3. Normal speech. Cranial nerves II through XII grossly intact. PSYCH: Normal affect, normal mood. SKIN: Warm, dry, normal turgor. No rashes or lesions noted. Course - Re-evaluation Re-evalutation: On my evaluation patient has received treatments already. She has clear lungs bilaterally without wheezing. She does have a frequent cough. She is tachycardic after the treatments and was tachycardic initially. She has no other complaints other than wheezing/cough. Venous blood gas unremarkable. CBC shows leukocytosis with elevation of eosinophils. Chemistry nonspecific with mild hypokalemia likely from the DuoNeb's. Troponin is negative. Chest x-ray with no acute finding. On reevaluation after work-up patient did have some slight wheezing again, she was given additional treatments and magnesium. After this she ambulated without any hypoxia, concerning tachycardia, or difficulty. I discussed with patient. Patient will be discharged, placed on steroids, use her home albuterol, follow- up with primary care, and return if she worsens. Patient states satisfaction and agreement with plan. Stable at time of discharge. - Vital Signs Vital signs: Temp Pulse Resp BP Pulse Ox 98.7 F 125 H 23 H 114/55 L 95 12/04/18 20:30 12/04/18 20:30 12/05/18 01:14 12/05/18 01:14 12/05/18 01:14 - Laboratory Result Diagrams: 12/04/18 20:57 12/04/18 20:57 Laboratory results interpreted by me: 12/04/18 12/04/18 20:57 20:57 WBC 11.8 H MCH 26.3 L RDW 14.6 H Lymphocytes % 12.8 L Eosinophils % 9.2 H Absolute Eosinophils 1.1 H Sodium 145.9 H Potassium 3.5 L Chloride 108 H Glucose 115 H - EKG Interpretation by Me Additional EKG results interpreted by me: EKG shows sinus tachycardia at a rate of 115, no T wave inversions or ST segment changes in consecutive leads, normal axis. Discharge - Discharge Clinical Impression: Wheezing, Cough Asthma exacerbation Qualifiers: Asthma severity: moderate Asthma persistence: unspecified Qualified Code(s): J45.901 - Unspecified asthma with (acute) exacerbation Condition: Stable Disposition: HOME, SELF-CARE Additional Instructions: Your evaluation is consistent with asthma exacerbation. Take prednisone as prescribed, use albuterol nebulizer, follow close with your primary care provider. Return if you worsen including fever, increased difficulty breathing, or any other concerning or worsening symptoms. Prescriptions: Prednisone [Deltasone 20 mg Tablet] 3 tab PO DAILY 5 Days #15 tablet Referrals: BONIFACIO MELENDEZ FNP-C [Primary Care Provider] - Follow up as needed
--- NOTE | 2018-12-04 22:05 | RADIOLOGY REPORT (SQ) ---
EXAM DESCRIPTION: XR CHEST 2 VIEWS COMPLETED DATE/TME: 12/04/2018 20:45 CLINICAL HISTORY: 58 years, Female, cough congestion wheezing COMPARISON: Prior study from 11/18/2018 NUMBER OF VIEWS: Two TECHNIQUE: Frontal and lateral radiographs of the chest were obtained. LIMITATIONS: None. FINDINGS: Cardiac and mediastinal contours are normal in appearance. Lungs are clear. No pleural effusion or pneumothorax. IMPRESSION: No acute disease. copyright 2010 [employer]- All Rights Reserved
[2018-12-04] MEDS: MAGNESIUM SULFATE/D5W 1 GM/100 ML RTUPB IV SCH ×2 (22:59→23:21)
[2018-12-04 23:03] LABS: VENOUS BLOOD BASE EXCESS 1.3 mmol/L; VENOUS BLOOD HCO3 27.4 mmol/L (20-32); VENOUS BLOOD PCO2 49.2 mmHg (35-63); VENOUS BLOOD PH 7.36 (7.30-7.42)
--- NOTE | 2018-12-04 23:07 | EKG REPORT ---
SEVERITY:- OTHERWISE NORMAL ECG - SINUS TACHYCARDIA : Confirmed by: Tianna Xavier 04-Dec-2018 23:06:23
[2018-12-04 23:15] LABS: ABSOLUTE BASOPHILS # (AUTO) 0.1 10^3/uL (0.0-0.2); ABSOLUTE EOSINOPHILS # (AUTO) 1.1 10^3/uL (0.0-0.6); ABSOLUTE LYMPHOCYTES (AUTO) 1.5 10^3/uL (0.5-4.7); ABSOLUTE MONOCYTES (AUTO) 1.4 10^3/uL (0.1-1.4); ABSOLUTE NEUT (AUTO) 7.7 10^3/uL (1.7-8.2); BASOPHILS % (AUTO) 0.7 % (0-2); EOSINOPHILS % (AUTO) 9.2 % (0-6); HEMOGLOBIN 12.4 g/dL (12.0-15.5); LYMPHOCYTES % (AUTO) 12.8 % (13-45); MEAN CORPUSCULAR HEMOGLOBIN 26.3 pg (27.0-33.4); MEAN CORPUSCULAR HGB CONC 32.7 g/dL (32.0-36.0); MEAN CORPUSCULAR VOLUME 80 fl (80-97); MONOCYTES % (AUTO) 11.5 % (3-13); PLATELET COUNT 418 10^3/uL (150-450); RED BLOOD COUNT 4.72 10^6/uL (3.72-5.28); RED CELL DISTRIBUTION WIDTH 14.6 % (11.5-14.0); SEGMENTED NEUTROPHILS % (AUTO) 65.8 % (42-78); TOTAL CELLS COUNTED % (AUTO) 100 %; WHITE BLOOD COUNT 11.8 10^3/uL (4.0-10.5)
[2018-12-04 23:36] LABS: ANION GAP 11 (5-19); BLOOD UREA NITROGEN 11 mg/dL (7-20); CALCIUM 9.9 mg/dL (8.4-10.2); CARBON DIOXIDE 27 mmol/L (22-30); CHLORIDE 108 mmol/L (98-107); GLUCOSE 115 mg/dL (75-110); POTASSIUM 3.5 mmol/L (3.6-5.0); SODIUM 145.9 mmol/L (137-145)
[2018-12-05 01:23] VITALS: BP 114/55
== END 2018-12-05 01:15 | disposition home or self-care (01) ==
LOC: ER 20:21
DX: J44.9 Chronic obstructive pulmonary disease, unspecified (principal); R06.02 Shortness of breath; R05 Cough; Z87.891 Personal history of nicotine dependence; I10 Essential (primary) hypertension; E11.9 Type 2 diabetes mellitus without complications
CPT/HCPCS: 93005; 94640 ×2; 99285; 96361; 96375; 96365; 36415; 85025; 80048; 84484; 82803; 71046; 93010; J2930; J3475; J2405; J7030; J7620

== ENCOUNTER 2018-12-30 09:50 | Emergency (ER) | payer SELFPAY ==
--- NOTE | 2018-12-30 10:09 | ER Document Report ---
ED Medical Screen (RME) - General Chief Complaint: Chest Pain Stated Complaint: CHEST PAIN Time Seen by Provider: 12/30/18 10:01 Primary Care Provider: BONIFACIO MELENDEZ FNP-C [Primary Care Provider] - Follow up as needed Mode of Arrival: Wheelchair Information source: Patient Notes: Patient presents this morning with complaints of right-sided chest pain and difficulty breathing. Reports history of COPD. Patient has bilateral A&P expiratory wheezes. Denies fever vomiting diarrhea. Reports symptoms started yesterday. She is given herself 2 albuterol neb treatments today without relief of symptoms. She reports she is never been intubated due to this but has had to use a CPAP and been admitted twice this year for same symptoms. I have greeted and performed a rapid initial assessment of this patient. A comprehensive ED assessment and evaluation of the patient, analysis of test results and completion of the medical decision making process will be conducted by additional ED providers. Dictation of this chart was performed using voice recognition software; therefore, there may be some unintended grammatical errors. TRAVEL OUTSIDE OF THE [place] IN LAST 30 DAYS: No - Related Data Allergies/Adverse Reactions: benzonatate [From Tessalon Perles] Allergy (Verified 12/30/18 09:53) RCING HEARTBEART NSAIDS (Non-Steroidal Anti-Inflamma Allergy (Verified 12/30/18 09:53) RACING HEARTBEAT Past Medical History - Social History Chew tobacco use (# tins/day): No Frequency of alcohol use: None Drug Abuse: None - Past Medical History Cardiac Medical History: Reports: Hx Hypertension Denies: Hx Atrial Fibrillation, Hx Coronary Artery Disease, Hx DVT, Hx Pulmonary Embolism Pulmonary Medical History: Reports: Hx Asthma, Hx Bronchitis, Hx COPD, Hx Pneumonia, Hx Respiratory Failure Denies: Hx Intubation Neurological Medical History: Denies: Hx Seizures Endocrine Medical History: Reports: Hx Diabetes Mellitus Type 2. Denies: Hx Diabetes Mellitus Type 1, Hx Hyperthyroidism, Hx Hypothyroidism Renal/ Medical History: Denies: Hx Peritoneal Dialysis GI Medical History: Denies: Hx Cirrhosis, Hx Gastroesophageal Reflux Disease, Hx Hepatitis Musculoskeltal Medical History: Reports Hx Arthritis, Denies Hx Gout Skin Medical History: Denies Hx Eczema, Denies Hx Psoriasis Psychiatric Medical History: Denies: Hx Depression Infectious Medical History: Denies: Hx Hepatitis - Immunizations Immunizations up to date: Yes Hx Diphtheria, Pertussis, Tetanus Vaccination: Yes History of Influenza Vaccine for 04/2017 - 09/2017 Season: Yes Influenza Administration Date for 04/2017 - 09/2017 Season: 04/12/17 Physical Exam - Vital signs Vitals: Temp Pulse Resp BP Pulse Ox 98.0 F 104 H 16 126/72 H 99 12/30/18 09:54 12/30/18 09:54 12/30/18 09:54 12/30/18 09:54 12/30/18 09:54 Course - Vital Signs Vital signs: Temp Pulse Resp BP Pulse Ox 98.0 F 104 H 16 126/72 H 99 12/30/18 09:54 12/30/18 09:54 12/30/18 09:54 12/30/18 09:54 12/30/18 09:54 Doctor's Discharge - Discharge Referrals: BONIFACIO MELENDEZ FNP-C [Primary Care Provider] - Follow up as needed
--- NOTE | 2018-12-30 10:22 | EKG REPORT ---
SEVERITY:- NORMAL ECG - SINUS RHYTHM : Confirmed by: Pennie Wilde MD 30-Dec-2018 10:21:07
[2018-12-30] MEDS ORDERED: IPRATROPIUM/ALBUTEROL 0.5-2.5 MG/3 ML AMPUL NEB ONE (10:32)
[2018-12-30] MEDS ORDERED: METHYLPREDNISOLONE INJ 125 MG/2 ML SDV IV ONE (10:32)
[2018-12-30 10:43] LABS: ABSOLUTE BASOPHILS # (AUTO) 0.1 10^3/uL (0.0-0.2); ABSOLUTE EOSINOPHILS # (AUTO) 1.2 10^3/uL (0.0-0.6); ABSOLUTE LYMPHOCYTES (AUTO) 1.5 10^3/uL (0.5-4.7); ABSOLUTE MONOCYTES (AUTO) 0.7 10^3/uL (0.1-1.4); ABSOLUTE NEUT (AUTO) 4.5 10^3/uL (1.7-8.2); BASOPHILS % (AUTO) 0.8 % (0-2); EOSINOPHILS % (AUTO) 15.1 % (0-6); HEMATOCRIT 38.2 % (36.0-47.0); HEMOGLOBIN 12.7 g/dL (12.0-15.5); LYMPHOCYTES % (AUTO) 18.8 % (13-45); MEAN CORPUSCULAR HEMOGLOBIN 26.4 pg (27.0-33.4); MEAN CORPUSCULAR HGB CONC 33.2 g/dL (32.0-36.0); MEAN CORPUSCULAR VOLUME 80 fl (80-97); MONOCYTES % (AUTO) 8.9 % (3-13); PLATELET COUNT 374 10^3/uL (150-450); RED CELL DISTRIBUTION WIDTH 14.5 % (11.5-14.0); SEGMENTED NEUTROPHILS % (AUTO) 56.4 % (42-78); TOTAL CELLS COUNTED % (AUTO) 100 %; WHITE BLOOD COUNT 8.1 10^3/uL (4.0-10.5)
--- NOTE | 2018-12-30 10:50 | RADIOLOGY REPORT (SQ) ---
EXAM DESCRIPTION: CHEST 2 VIEWS COMPLETED DATE/TIME: 12/30/2018 10:23 am REASON FOR STUDY: diffbreath cp COMPARISON: 12/04/2018 EXAM PARAMETERS: NUMBER OF VIEWS: two views TECHNIQUE: Digital Frontal and Lateral radiographic views of the chest acquired. RADIATION DOSE: NA LIMITATIONS: none FINDINGS: LUNGS AND PLEURA: No opacities, masses or pneumothorax. No pleural effusion. MEDIASTINUM AND HILAR STRUCTURES: No masses or contour abnormalities. HEART AND VASCULAR STRUCTURES: Heart normal size. No evidence for failure. BONES: No acute findings. HARDWARE: None in the chest. OTHER: No other significant finding. IMPRESSION: NO ACUTE RADIOGRAPHIC FINDING IN THE CHEST. TECHNICAL DOCUMENTATION: JOB ID: [id number] [employer]- All Rights Reserved Reading location - IP/workstation name: [email or web address]
--- NOTE | 2018-12-30 10:54 | ER Document Report ---
ED General - General Chief Complaint: Chest Pain Stated Complaint: CHEST PAIN Time Seen by Provider: 12/30/18 10:01 Primary Care Provider: BONIFACIO MELENDEZ FNP-C [Primary Care Provider] - Follow up as needed Mode of Arrival: Wheelchair Notes: 58-year-old lady with bad COPD multiple ED visits presents with 2 days of shortness of breath coughing and wheezing worse when lying flat constant and worsening. No fever, no increased leg swelling. She has intermittent right shoulder pain but no true chest pain. She has no fever. She been using her meds as instructed. She no longer smokes. TRAVEL OUTSIDE OF THE [place] IN LAST 30 DAYS: No - Related Data Allergies/Adverse Reactions: benzonatate [From Allurentjoe] Allergy (Verified 12/30/18 09:53) RCING HEARTBEART NSAIDS (Non-Steroidal Anti-Inflamma Allergy (Verified 12/30/18 09:53) RACING HEARTBEAT Past Medical History - General Information source: Patient - Social History Smoking Status: Former Smoker Chew tobacco use (# tins/day): No Frequency of alcohol use: None Drug Abuse: None Family History: COPD, DM, Hypertension Patient has suicidal ideation: No Patient has homicidal ideation: No - Past Medical History Cardiac Medical History: Reports: Hx Hypertension Denies: Hx Atrial Fibrillation, Hx Coronary Artery Disease, Hx DVT, Hx Pulmonary Embolism Pulmonary Medical History: Reports: Hx Asthma, Hx Bronchitis, Hx COPD, Hx Pneumonia, Hx Respiratory Failure Denies: Hx Intubation Neurological Medical History: Denies: Hx Seizures Endocrine Medical History: Reports: Hx Diabetes Mellitus Type 2. Denies: Hx Diabetes Mellitus Type 1, Hx Hyperthyroidism, Hx Hypothyroidism Renal/ Medical History: Denies: Hx Peritoneal Dialysis GI Medical History: Denies: Hx Cirrhosis, Hx Gastroesophageal Reflux Disease, Hx Hepatitis Musculoskeletal Medical History: Reports Hx Arthritis, Denies Hx Gout Skin Medical History: Denies Hx Eczema, Denies Hx Psoriasis Psychiatric Medical History: Denies: Hx Depression Infectious Medical History: Denies: Hx Hepatitis - Immunizations Immunizations up to date: Yes Hx Diphtheria, Pertussis, Tetanus Vaccination: Yes Review of Systems - Review of Systems Notes: REVIEW OF SYSTEMS GEN: Denies fever, chills, weight loss ENT: Denies sore throat, nasal discharge, ear pain EYES: Denies blurry vision, eye pain, discharge CV: Denies chest pain, palpitations, edema RESP: Wheezing and shortness of breath GI: Denies abdominal pain, nausea, vomiting, diarrhea MSK: Denies joint pain/swelling, edema, SKIN: Denies rash, skin lesions LYMPH: Denies swollen glands/lymph nodes NEURO: Denies headache, focal weakness or numbness, dizziness PSYCH: Denies depression, suicidal or homicidal ideation PHYSICAL EXAMINATION General: No acute distress, well-nourished Head: Atraumatic, normocephalic ENT: Mouth normal, oropharynx moist, no exudates or tonsillar enlargement Eyes: Conjunctiva normal, pupils equal, lids normal Neck: No JVD, supple, no guarding CVS: Normal rate, regular rhythm, no murmurs Resp: Mild distress, tachypnea, bilateral biphasic wheezing with equal air movement GI: Nondistended, soft, no tenderness to palpation, no rebound or guarding Ext: No deformities, no edema, normal range of motion in upper and lower ext Back: No CVA or midline TTP Skin: No rash, warm Lymphatic: No lymphadeopathy noted Neuro: Awake, alert. Face symmetric. GCS 15. Physical Exam - Vital signs Vitals: Temp Pulse Resp BP Pulse Ox 98.0 F 104 H 16 126/72 H 99 12/30/18 09:54 12/30/18 09:54 12/30/18 09:54 12/30/18 09:54 12/30/18 09:54 Course - Re-evaluation Re-evalutation: 12/30/18 10:54 Shortness of breath with some dependent componentCOPD versus CHF. Will rule out pneumonia. Will treat for COPD. 12/30/18 11:56 Patient is received treatments and on reassessment 1150 feels a little bit better. She would like 1 more treatment which think is reasonable. Her saturation at rest is 96%. Her x-ray was at pneumonia and her labs are normal. She is appropriate for discharge at this [facility]. We will place up on his numbers. I have discussed with the patient there likely diagnosis, aftercare plan, follow-up plans and my usual and customary return precautions. They verbalized understanding of this. - Vital Signs Vital signs: Temp Pulse Resp BP Pulse Ox 98.0 F 104 H 16 126/72 H 99 12/30/18 09:54 12/30/18 09:54 12/30/18 09:54 12/30/18 09:54 12/30/18 09:54 - Laboratory Result Diagrams: 12/30/18 10:26 12/30/18 10:26 Laboratory results interpreted by me: 12/30/18 10:26 MCH 26.4 L RDW 14.5 H Eosinophils % 15.1 H Absolute Eosinophils 1.2 H - Diagnostic Test Radiology reviewed: Image reviewed, Reports reviewed Discharge - Discharge Clinical Impression: COPD exacerbation Condition: Good Disposition: HOME, SELF-CARE Instructions: Chronic Obstructive Lung Disease ([facility]) Prescriptions: Prednisone [Deltasone 20 mg Tablet] 3 tab PO DAILY 30 Days tablet Referrals: BONIFACIO MELENDEZ FNP-C [Primary Care Provider] - Follow up as needed
[2018-12-30 11:05] LABS: ALANINE AMINOTRANSFERASE 16 U/L (9-52); ALBUMIN 4.2 g/dL (3.5-5.0); ALKALINE PHOSPHATASE 82 U/L (38-126); ANION GAP 8 (5-19); ASPARTATE AMINO TRANSFERASE 18 U/L (14-36); BILIRUBIN,DIRECT 0.2 mg/dL (0.0-0.4); BILIRUBIN,TOTAL 0.4 mg/dL (0.2-1.3); BLOOD UREA NITROGEN 11 mg/dL (7-20); CALCIUM 10.2 mg/dL (8.4-10.2); CARBON DIOXIDE 30 mmol/L (22-30); CHLORIDE 105 mmol/L (98-107); CREATINE KINASE 47 U/L (30-135); GLUCOSE 108 mg/dL (75-110); SODIUM 142.9 mmol/L (137-145); TOTAL PROTEIN 6.9 g/dL (6.3-8.2)
[2018-12-30] MEDS ORDERED: ALBUTEROL SULFATE 0.083% NEB 2.5 MG/3 ML AMPUL NEB ONE (11:59)
[2018-12-30 12:31] VITALS: BP 122/76
== END 2018-12-30 12:31 | disposition home or self-care (01) ==
LOC: ER 09:50
DX: J44.1 Chronic obstructive pulmonary disease with (acute) exacerbation (principal); R07.9 Chest pain, unspecified; I10 Essential (primary) hypertension; E11.9 Type 2 diabetes mellitus without complications
CPT/HCPCS: 93005; 94640 ×2; 99285; 96374; 36415; 82550; 85025; 80053; 84484; 71046; 93010; J2930; J7620

== ENCOUNTER 2018-12-31 05:41 | Observation (INO) | payer MEDICAID ==
[2018-12-31] MEDS ORDERED: IPRATROPIUM/ALBUTEROL 0.5-2.5 MG/3 ML AMPUL NEB ONE (06:14)
--- NOTE | 2018-12-31 06:15 | ER Document Report ---
ED Medical Screen (RME) - General TRAVEL OUTSIDE OF THE [place] IN LAST 30 DAYS: No <SHANELLE PATEL - Last Filed: 12/31/18 06:10> <YUSRA ESCALONA - Last Filed: 12/31/18 13:18> - General Chief Complaint: Shortness Of Breath Stated Complaint: DIFFICULTY BREATHING Time Seen by Provider: 12/31/18 06:03 Notes: 58-year-old female seen here yesterday for COPD exacerbation with multiple ED visits presents with persistent shortness of breath, coughing, and wheezing worse when lying flat, constant, and worsening. Patient woke up at midnight acutely short of breath and was gave herself a total of 4 breathing treatments prior to arrival. Patient is a former smoker. Patient denies fevers, denies dependent edema. (SHANELLE PATEL) - Related Data Allergies/Adverse Reactions: benzonatate [From Tessalon Perles] Allergy (Verified 12/30/18 09:53) RCING HEARTBEART NSAIDS (Non-Steroidal Anti-Inflamma Allergy (Verified 12/30/18 09:53) RACING HEARTBEAT Past Medical History - Past Medical History Cardiac Medical History: Reports: Hx Hypertension Denies: Hx Atrial Fibrillation, Hx Coronary Artery Disease, Hx DVT, Hx Pulmonary Embolism Pulmonary Medical History: Reports: Hx Asthma, Hx Bronchitis, Hx COPD, Hx Pneumonia, Hx Respiratory Failure Denies: Hx Intubation Neurological Medical History: Denies: Hx Seizures Endocrine Medical History: Reports: Hx Diabetes Mellitus Type 2. Denies: Hx Diabetes Mellitus Type 1, Hx Hyperthyroidism, Hx Hypothyroidism Renal/ Medical History: Denies: Hx Peritoneal Dialysis GI Medical History: Denies: Hx Cirrhosis, Hx Gastroesophageal Reflux Disease, Hx Hepatitis Musculoskeltal Medical History: Reports Hx Arthritis, Denies Hx Gout Skin Medical History: Denies Hx Eczema, Denies Hx Psoriasis Psychiatric Medical History: Denies: Hx Depression Infectious Medical History: Denies: Hx Hepatitis - Immunizations Immunizations up to date: Yes Hx Diphtheria, Pertussis, Tetanus Vaccination: Yes History of Influenza Vaccine for 04/2017 - 09/2017 Season: Yes Influenza Administration Date for 04/2017 - 09/2017 Season: 04/12/17 <SHANELLE PATEL - Last Filed: 12/31/18 06:10> Physical Exam <SHANELLE PATEL - Last Filed: 12/31/18 06:10> - Vital signs Vitals: Temp Pulse Resp BP Pulse Ox 98.7 F 128 H 22 H 149/98 H 92 12/31/18 05:47 12/31/18 05:47 12/31/18 05:47 12/31/18 05:47 12/31/18 05:47 - Notes Notes: PHYSICAL EXAMINATION: Reviewed vital signs and charting by RN GENERAL: Alert, interacts well. Mild acute distress. Patient mostly able to talk in full sentences but occasionally has to pause and is obviously short of breath. HEAD: Normocephalic, atraumatic. EYES: Pupils equal and round. Extraocular movements intact. ENT: Oral mucosa moist, tongue midline. NECK: Full range of motion. Trachea midline. LUNGS: Diffuse inspiratory and expiratory wheezes with reduced air movement HEART: Tachycardia with regular and rhythm. No murmur EXTREMITIES: Moves all 4 extremities spontaneously. No edema, No cyanosis. SKIN: Warm, dry, normal turgor. No rashes or lesions noted. (SHANELLE PATEL) Course - Laboratory Result Diagrams: 12/31/18 07:45 12/31/18 07:45 - Diagnostic Test Radiology reviewed: Image reviewed, Reports reviewed <YUSRA ESCALONA - Last Filed: 12/31/18 13:18> - Re-evaluation Re-evalutation: 12/31/18 13:18 Visit for COPD. Chest x-ray negative. 3 nebs steroids, admitted to hospitalist given bounce back. (YUSRA ESCALONA) - Vital Signs Vital signs: Temp Pulse Resp BP Pulse Ox 97.5 F 115 H 20 127/72 H 94 12/31/18 10:03 12/31/18 10:03 12/31/18 10:03 12/31/18 10:03 12/31/18 10:03 - Laboratory Laboratory results interpreted by me: 12/31/18 12/31/18 07:45 07:45 Hgb 11.7 L Hct 35.3 L MCV 79 L MCH 26.2 L RDW 14.6 H Seg Neutrophils % 82.7 H Lymphocytes % 11.5 L Glucose 182 H AST 13 L Doctor's Discharge <SHANELLE PATEL - Last Filed: 12/31/18 06:10> <YUSRA ESCALONA - Last Filed: 12/31/18 13:18> - Discharge Clinical Impression: COPD with exacerbation Condition: Fair Disposition: ADMITTED OBSERVATION
[2018-12-31] MEDS ORDERED: METHYLPREDNISOLONE INJ 125 MG/2 ML SDV IV ONE (06:51)
[2018-12-31] MEDS ORDERED: ALBUTEROL SULFATE 0.083% NEB 2.5 MG/3 ML AMPUL NEB ONE (06:51)
--- NOTE | 2018-12-31 06:52 | ER Document Report ---
ED General - General Chief Complaint: Shortness Of Breath Stated Complaint: DIFFICULTY BREATHING Time Seen by Provider: 12/31/18 06:03 Primary Care Provider: BONIFACIO MELENDEZ FNP-C [Primary Care Provider] - Follow up as needed Notes: 58-year-old female seen yesterday for COPD with multiple admits, non-smoker, presents with worsening shortness of breath. Constant. Not better with nebs. Cough with no sputum. Denies chest pain. Yesterday we had a full work-up which was negative and was discharged. TRAVEL OUTSIDE OF THE [place] IN LAST 30 DAYS: No - Related Data Allergies/Adverse Reactions: benzonatate [From [email or web address]] Allergy (Verified 12/30/18 09:53) RCING HEARTBEART NSAIDS (Non-Steroidal Anti-Inflamma Allergy (Verified 12/30/18 09:53) RACING HEARTBEAT Past Medical History - Social History Smoking Status: Never Smoker Family History: COPD, DM, Hypertension Patient has suicidal ideation: No Patient has homicidal ideation: No - Past Medical History Cardiac Medical History: Reports: Hx Hypertension Denies: Hx Atrial Fibrillation, Hx Coronary Artery Disease, Hx DVT, Hx Pulmonary Embolism Pulmonary Medical History: Reports: Hx Asthma, Hx Bronchitis, Hx COPD, Hx Pneumonia, Hx Respiratory Failure Denies: Hx Intubation Neurological Medical History: Denies: Hx Seizures Endocrine Medical History: Reports: Hx Diabetes Mellitus Type 2. Denies: Hx Diabetes Mellitus Type 1, Hx Hyperthyroidism, Hx Hypothyroidism Renal/ Medical History: Denies: Hx Peritoneal Dialysis GI Medical History: Denies: Hx Cirrhosis, Hx Gastroesophageal Reflux Disease, Hx Hepatitis Musculoskeletal Medical History: Reports Hx Arthritis, Denies Hx Gout Skin Medical History: Denies Hx Eczema, Denies Hx Psoriasis Psychiatric Medical History: Denies: Hx Depression Infectious Medical History: Denies: Hx Hepatitis - Immunizations Immunizations up to date: Yes Hx Diphtheria, Pertussis, Tetanus Vaccination: Yes Review of Systems - Review of Systems Notes: REVIEW OF SYSTEMS GEN: Denies fever, chills, weight loss ENT: Denies sore throat, nasal discharge, ear pain EYES: Denies blurry vision, eye pain, discharge CV: Denies chest pain, palpitations, edema RESP: HPI GI: Denies abdominal pain, nausea, vomiting, diarrhea MSK: Denies joint pain/swelling, edema, SKIN: Denies rash, skin lesions LYMPH: Denies swollen glands/lymph nodes NEURO: Denies headache, focal weakness or numbness, dizziness PSYCH: Denies depression, suicidal or homicidal ideation PHYSICAL EXAMINATION General: No acute distress, well-nourished Head: Atraumatic, normocephalic ENT: Mouth normal, oropharynx moist, no exudates or tonsillar enlargement Eyes: Conjunctiva normal, pupils equal, lids normal Neck: No JVD, supple, no guarding CVS: Normal rate, regular rhythm, no murmurs Respiratory: Tachypneic with bilateral wheezing but no distress or accessory muscle use, positive prolonged expiratory phase GI: Nondistended, soft, no tenderness to palpation, no rebound or guarding Ext: No deformities, no edema, normal range of motion in upper and lower ext Back: No CVA or midline TTP Skin: No rash, warm Lymphatic: No lymphadeopathy noted Neuro: Awake, alert. Face symmetric. GCS 15. Physical Exam - Vital signs Vitals: Temp Pulse Resp BP Pulse Ox 98.7 F 128 H 22 H 149/98 H 92 12/31/18 05:47 12/31/18 05:47 12/31/18 05:47 12/31/18 05:47 12/31/18 05:47 Course - Re-evaluation Re-evalutation: 12/31/18 07:17 Re-presentation for COPD exacerbation. Will continue nebs re-dose steroids rule out pneumothorax in the mediastinum and admit. Does not need labs. Discussed with hospitalist. - Vital Signs Vital signs: Temp Pulse Resp BP Pulse Ox 98.5 F 127 H 23 H 135/77 H 95 12/31/18 07:31 12/31/18 05:48 12/31/18 07:31 12/31/18 07:31 12/31/18 07:31 - Diagnostic Test Radiology reviewed: Image reviewed, Reports reviewed Discharge - Discharge Clinical Impression: COPD with exacerbation Condition: Fair Disposition: ADMITTED OBSERVATION Admitting Provider: Indira (Hospitalist) Unit Admitted: Telemetry Referrals: BONIFACIO MELENDEZ FNP-C [Primary Care Provider] - Follow up as needed
--- NOTE | 2018-12-31 07:00 | RADIOLOGY REPORT (SQ) ---
CLINICAL HISTORY: SOB COMPARISON: November 18, 2018. TECHNIQUE: XR CHEST 2 VIEWS 12/31/2018 6:12 AM CDT FINDINGS: Cardiac silhouette is normal in size. There are mildly prominent interstitial markings throughout both lungs. This is relatively unchanged. There is no pleural effusion. There is no pneumothorax. There are no acute osseous findings. IMPRESSION: No pneumonia.
[2018-12-31 10:26] LABS: ABSOLUTE LYMPHOCYTES (AUTO) 1.1 10^3/uL (0.5-4.7); ABSOLUTE MONOCYTES (AUTO) 0.6 10^3/uL (0.1-1.4); ABSOLUTE NEUT (AUTO) 8.2 10^3/uL (1.7-8.2); BASOPHILS % (AUTO) 0.2 % (0-2); HEMATOCRIT 35.3 % (36.0-47.0); HEMOGLOBIN 11.7 g/dL (12.0-15.5); LYMPHOCYTES % (AUTO) 11.5 % (13-45); MEAN CORPUSCULAR HEMOGLOBIN 26.2 pg (27.0-33.4); MEAN CORPUSCULAR HGB CONC 33.2 g/dL (32.0-36.0); MEAN CORPUSCULAR VOLUME 79 fl (80-97); MONOCYTES % (AUTO) 5.6 % (3-13); PLATELET COUNT 386 10^3/uL (150-450); RED BLOOD COUNT 4.47 10^6/uL (3.72-5.28); RED CELL DISTRIBUTION WIDTH 14.6 % (11.5-14.0); SEGMENTED NEUTROPHILS % (AUTO) 82.7 % (42-78); TOTAL CELLS COUNTED % (AUTO) 100 %; WHITE BLOOD COUNT 9.9 10^3/uL (4.0-10.5)
[2018-12-31 10:43] LABS: ALANINE AMINOTRANSFERASE 21 U/L (9-52); ALBUMIN 4.3 g/dL (3.5-5.0); ALKALINE PHOSPHATASE 91 U/L (38-126); ANION GAP 12 (5-19); ASPARTATE AMINO TRANSFERASE 13 U/L (14-36); BILIRUBIN,DIRECT 0.2 mg/dL (0.0-0.4); BILIRUBIN,TOTAL 0.2 mg/dL (0.2-1.3); BLOOD UREA NITROGEN 16 mg/dL (7-20); CALCIUM 10.2 mg/dL (8.4-10.2); CARBON DIOXIDE 26 mmol/L (22-30); CHLORIDE 106 mmol/L (98-107); GLUCOSE 182 mg/dL (75-110); POTASSIUM 4.1 mmol/L (3.6-5.0); SODIUM 143.8 mmol/L (137-145); TOTAL PROTEIN 7.2 g/dL (6.3-8.2)
[2018-12-31] MEDS ORDERED: ONDANSETRON HCL INJ/PF 4 MG/2 ML SDV IV PRN (11:12)
[2018-12-31] MEDS ORDERED: MAG HYDROX/AL HYDROX/SIMETH SUSP 30 ML UDCUP PO PRN (11:12)
[2018-12-31] MEDS ORDERED: LEVALBUTEROL HCL NEB 1.25 MG/3 ML AMPUL NEB PRN (11:12)
[2018-12-31] MEDS ORDERED: MAGNESIUM HYDROXIDE SUSP 30 ML UDCUP PO PRN (11:12)
[2018-12-31] MEDS ORDERED: PROMETHAZINE HCL INJ 25 MG/1 ML VIAL IV PRN (11:12)
[2018-12-31] MEDS ORDERED: ACETAMINOPHEN 325 MG TABLET PO PRN (11:12)
[2018-12-31] MEDS ORDERED: DEXTROSE 40% GEL 15 GM TUBE PO PRN ×2 (11:16)
[2018-12-31] MEDS ORDERED: DEXTROSE 50%-WATER 25 GM/50 ML DISP.SYRIN IV PRN ×2 (11:16)
[2018-12-31] MEDS ORDERED: GLUCAGON,HUMAN RECOMB 1 MG INJ IM PRN (11:16)
[2018-12-31] MEDS: INSULIN LISPRO 100 UNIT/ML 3 ML VIAL SUBCUT SCH ×3 (13:25→21:31)
[2018-12-31] MEDS: METHYLPREDNISOLONE INJ 40 MG/1 ML SDV IV SCH ×2 (13:26→21:30)
[2018-12-31] MEDS: HEPARIN SOD (PORCINE) 5,000 UNIT/ML 1 ML SYRINGE SUBCUT SCH ×2 (13:26→21:02)
[2018-12-31] MEDS ORDERED: DILTIAZEM HCL 240 MG CAPSULE.CR PO ONE (14:00)
[2018-12-31] MEDS ORDERED: CARVEDILOL 3.125 MG TABLET PO ONE (14:00)
[2018-12-31] MEDS: IPRATROPIUM/ALBUTEROL 0.5-2.5 MG/3 ML AMPUL NEB SCH ×2 (14:11→20:03)
[2018-12-31] MEDS ORDERED: INSULIN LISPRO 100 UNIT/ML 3 ML VIAL SUBCUT SCH (16:00)
--- NOTE | 2018-12-31 16:14 | PDOC H&P ---
History of Present Illness Admission Date/PCP: 12/31/18 09:22 JENNIFER MEYER Patient complains of: shortness of breath History of Present Illness: ADDIE STEWART is a 58 year old female with a past medical history significant for COPD, asthma, hypertension, DM 2, and GERD who presents to the emergency department today with a complaint of 1 week of slowly worsening shortness of breath, productive cough, and wheezing. She was seen in the emergency [facility] yesterday and provided nebulizer treatments steroid therapy and discharged home. She returns today after multiple nebulizer treatments at home without relief of symptoms. Evaluation in the emergency department reveals tachycardia (HR 128), tachypnea (RR 23), hypoxia on room air (90%), benign chest x-ray, and laboratory evaluation revealing anemia (hemoglobin 11.7 at baseline), and normal WBC with elevated neutrophil count (Likely related to recent steroid use). She is referred to the hospitalist service for admission and management of COPD exacerbation. Past Medical History Cardiac Medical History: Reports: Hypertension Denies: Atrial Fibrillation, Coronary Artery Disease, Pulmonary Embolism Pulmonary Medical History: Reports: Asthma, Bronchitis, Chronic Obstructive Pulmonary Disease (COPD), Pneumonia, Respiratory Failure Denies: Intubation Neurological Medical History: Reports: None Endocrine Medical History: Reports: Diabetes Mellitus Type 2 Denies: Hyperthyroidism, Hypothyroidism Renal/ Medical History: Reports: None Malignancy Medical History: Reports: None GI Medical History: Reports: Gastroesophageal Reflux Disease Musculoskeltal Medical History: Reports: Arthritis Denies: Gout Skin Medical History: Reports: None Psychiatric Medical History: Denies: Depression Hematology: Reports: Anemia Denies: Bleeding Tendencies Social History Information Source: Patient Lives with: Family Smoking Status: Former Smoker Frequency of Alcohol Use: None Hx Recreational Drug Use: No Drugs: None Hx Prescription Drug Abuse: No - Advance Directive Resuscitation Status: Full Code Family History Family History: COPD, DM, Hypertension Parental Family History Reviewed: Yes Children Family History Reviewed: Yes Sibling(s) Family History Reviewed.: Yes Medication/Allergy Home Medications: Albuterol Sulfate [Ventolin 0.083% Neb 2.5 mg/3 mL Ampul] 1 vial NEB Q8HP PRN 07/27/18 Carvedilol [Coreg 3.125 mg Tablet] 1 tab PO BID 07/28/18 Metformin HCl 1,000 mg PO BID 07/28/18 Budesonide/Formoterol Fumarate [Symbicort HFA 160-4.5 mcg Inhaler 6 gm] 2 puff IH Q12 inhaler 07/31/18 Diltiazem HCl [Cardizem Cd 240 mg Capsule.cr] 240 mg PO Q12 capsule.cr 07/31/18 Budesonide [Pulmicort] 0.5 mg IH BID #30 ampul.neb 10/26/18 Allergies/Adverse Reactions: benzonatate [From Wes Blanco] Allergy (Verified 12/30/18 09:53) RCING HEARTBEART NSAIDS (Non-Steroidal Anti-Inflamma Allergy (Verified 12/30/18 09:53) RACING HEARTBEAT Review of Systems Constitutional: ABSENT: chills, fever(s), headache(s), weight gain, weight loss Eyes: ABSENT: visual disturbances Ears: ABSENT: hearing changes Cardiovascular: ABSENT: chest pain, dyspnea on exertion, edema, orthropnea, palpitations Respiratory: PRESENT: cough, dyspnea. ABSENT: hemoptysis Gastrointestinal: ABSENT: abdominal pain, constipation, diarrhea, hematemesis, hematochezia, nausea, vomiting Genitourinary: ABSENT: dysuria, hematuria Musculoskeletal: ABSENT: joint swelling Integumentary: ABSENT: rash, wounds Neurological: ABSENT: abnormal gait, abnormal speech, confusion, dizziness, focal weakness, syncope Psychiatric: ABSENT: anxiety, depression, homidical ideation, suicidal ideation Endocrine: ABSENT: cold intolerance, heat intolerance, polydipsia, polyuria Hematologic/Lymphatic: ABSENT: easy bleeding, easy bruising Physical Exam Vital Signs: Temp Pulse Resp BP Pulse Ox 97.5 F 116 H 18 127/72 H 97 12/31/18 10:03 12/31/18 14:12 12/31/18 14:12 12/31/18 10:03 12/31/18 14:12 Intake & Output 12/30/18 12/31/18 01/01/19 06:59 06:59 06:59 Weight 72 kg 70.931 kg General appearance: PRESENT: no acute distress, well-developed, well-nourished - overweight Head exam: PRESENT: atraumatic, normocephalic Eye exam: PRESENT: conjunctiva pink, EOMI, PERRLA. ABSENT: scleral icterus Ear exam: PRESENT: normal external ear exam Mouth exam: PRESENT: moist, tongue midline Neck exam: ABSENT: carotid bruit, JVD, lymphadenopathy, thyromegaly Respiratory exam: PRESENT: prolonged expiratory phas, symmetrical, unlabored, wheezes - throughout. ABSENT: rales, rhonchi Cardiovascular exam: PRESENT: RRR, +S1, +S2, tachycardia. ABSENT: diastolic murmur, rubs, systolic murmur Pulses: PRESENT: normal dorsalis pedis pul Vascular exam: PRESENT: normal capillary refill GI/Abdominal exam: PRESENT: normal bowel sounds, soft. ABSENT: distended, guarding, mass, organolmegaly, rebound, tenderness Rectal exam: PRESENT: deferred Extremities exam: PRESENT: full ROM. ABSENT: calf tenderness, clubbing, pedal edema Neurological exam: PRESENT: alert, awake, oriented to person, oriented to place, oriented to time, oriented to situation, CN II-XII grossly intact. ABSENT: motor sensory deficit Psychiatric exam: PRESENT: appropriate affect, normal mood. ABSENT: homicidal ideation, suicidal ideation Skin exam: PRESENT: dry, intact, warm. ABSENT: cyanosis, rash Results Laboratory Results: 12/31/18 07:45 12/31/18 07:45 12/31/18 12/31/18 07:45 07:45 WBC 9.9 RBC 4.47 Hgb 11.7 L Hct 35.3 L MCV 79 L MCH 26.2 L MCHC 33.2 RDW 14.6 H Plt Count 386 Seg Neutrophils % 82.7 H Lymphocytes % 11.5 L Monocytes % 5.6 Eosinophils % 0.0 Basophils % 0.2 Absolute Neutrophils 8.2 Absolute Lymphocytes 1.1 Absolute Monocytes 0.6 Absolute Eosinophils 0.0 Absolute Basophils 0.0 Sodium 143.8 Potassium 4.1 Chloride 106 Carbon Dioxide 26 Anion Gap 12 BUN 16 Creatinine 0.62 Est GFR ( Amer) > 60 Est GFR (Non-Af Amer) > 60 Glucose 182 H Calcium 10.2 Total Bilirubin 0.2 AST 13 L ALT 21 Alkaline Phosphatase 91 Total Protein 7.2 Albumin 4.3 Impressions: Chest X-Ray 12/31/18 06:12 IMPRESSION: No pneumonia. Assessment and Plan - Diagnosis (1) Acute exacerbation of chronic obstructive pulmonary disease (COPD) Is this a current diagnosis for this admission?: Yes Plan: Patient is admitted to the medical floor and continuous cardiac telemetry. She is provided supplemental oxygen as needed to maintain saturations >88%. She is provided scheduled and as needed nebulizer treatment. She is already received IV Solu-Medrol 125 mg per ED provider; will continue at 40 mg every 8 hours. Mucinex twice daily. Incentive spirometer and flutter valve to bedside. No indications for antibiotic therapy at this time as the patient has a normal white count, is afebrile, with clear chest x-ray. (2) Diabetes mellitus type 2 in obese Is this a current diagnosis for this admission?: Yes Plan: Patient's home dose metformin is held while admitted. She is placed on a consistent carb and cardiac diet. Accu-Cheks before meals and at bedtime with Humalog for sliding scale coverage. Hypoglycemia protocol in place. (3) GERD (gastroesophageal reflux disease) Qualifiers: Esophagitis presence: without esophagitis Qualified Code(s): K21.9 - Gastro-esophageal reflux disease without esophagitis Is this a current diagnosis for this admission?: Yes Plan: Pepcid twice daily. (4) Hypertension Qualifiers: Hypertension type: essential hypertension Qualified Code(s): I10 - Essential (primary) hypertension Is this a current diagnosis for this admission?: Yes Plan: Cardiac/consistent carb diet. Patient's home dose carvedilol and diltiazem are continued. - Time Time Spent with patient: 35 or more minutes Medications reviewed and adjusted accordingly: Yes Anticipated discharge: Home Within: within 48 hours
[2018-12-31] MEDS: DILTIAZEM HCL 240 MG CAPSULE.CR PO SCH (21:30)
[2018-12-31] MEDS: CARVEDILOL 3.125 MG TABLET PO SCH (21:30)
[2018-12-31] MEDS: FAMOTIDINE 20 MG TABLET PO SCH (21:30)
[2019-01-01] MEDS: IPRATROPIUM/ALBUTEROL 0.5-2.5 MG/3 ML AMPUL NEB SCH ×4 (02:15→20:57)
[2019-01-01 05:02] LABS: HEMATOCRIT 34.1 % (36.0-47.0); HEMOGLOBIN 11.2 g/dL (12.0-15.5); MEAN CORPUSCULAR HEMOGLOBIN 25.9 pg (27.0-33.4); MEAN CORPUSCULAR HGB CONC 32.9 g/dL (32.0-36.0); MEAN CORPUSCULAR VOLUME 79 fl (80-97); PLATELET COUNT 375 10^3/uL (150-450); RED BLOOD COUNT 4.34 10^6/uL (3.72-5.28); RED CELL DISTRIBUTION WIDTH 14.9 % (11.5-14.0); WHITE BLOOD COUNT 11.6 10^3/uL (4.0-10.5)
[2019-01-01 05:18] LABS: ANION GAP 9 (5-19); BLOOD UREA NITROGEN 14 mg/dL (7-20); CALCIUM 9.3 mg/dL (8.4-10.2); CARBON DIOXIDE 28 mmol/L (22-30); CHLORIDE 105 mmol/L (98-107); GLUCOSE 239 mg/dL (75-110); POTASSIUM 4.3 mmol/L (3.6-5.0); SODIUM 142.1 mmol/L (137-145)
[2019-01-01] MEDS: HEPARIN SOD (PORCINE) 5,000 UNIT/ML 1 ML SYRINGE SUBCUT SCH ×3 (05:49→21:19)
[2019-01-01] MEDS: METHYLPREDNISOLONE INJ 40 MG/1 ML SDV IV SCH ×3 (05:53→21:17)
[2019-01-01] MEDS: INSULIN LISPRO 100 UNIT/ML 3 ML VIAL SUBCUT SCH ×4 (07:39→21:18)
[2019-01-01] MEDS: DILTIAZEM HCL 240 MG CAPSULE.CR PO SCH ×2 (09:20→21:18)
[2019-01-01] MEDS: FAMOTIDINE 20 MG TABLET PO SCH ×2 (09:20→21:18)
[2019-01-01] MEDS: DOCUSATE SODIUM 100 MG CAPSULE PO SCH (09:20)
[2019-01-01] MEDS: CARVEDILOL 3.125 MG TABLET PO SCH ×2 (09:20→21:18)
--- NOTE | 2019-01-01 14:07 | PDOC PROGRESS REPORT ---
Subjective Progress Note for:: 01/01/19 Subjective:: ADDIE STEWART is a 58 year old female with a past medical history significant for COPD, asthma, hypertension, DM 2, and GERD who was admitted 12/31/18 for COPD exacerbation. Patient was seen on morning rounds. She was found sitting up to the edge of the bed, comfortably on room air. She reports she is feeling slightly better. She does continue to have audible wheezing and shortness of breath with minimal activity. She denies fever, chills, headache, dizziness, chest pain, palpitations, orthopnea, abdominal pain, nausea and vomiting. She does have a slightly p roductive cough. She has no other questions or concerns today. No concerns per nursing. Reason For Visit: COPD WITH EXACERBATION Physical Exam Vital Signs: Temp Pulse Resp BP Pulse Ox 98.3 F 108 H 22 H 137/71 H 96 01/01/19 07:00 01/01/19 08:23 01/01/19 08:23 01/01/19 07:00 01/01/19 08:23 Intake & Output 12/31/18 01/01/19 01/02/19 06:59 06:59 06:59 Intake Total 940 Balance 940 Weight 72 kg 70.1 kg General appearance: PRESENT: no acute distress, well-developed, well-nourished - overweight Head exam: PRESENT: atraumatic, normocephalic Eye exam: PRESENT: conjunctiva pink, EOMI, PERRLA. ABSENT: scleral icterus Ear exam: PRESENT: normal external ear exam Mouth exam: PRESENT: moist, tongue midline Neck exam: ABSENT: carotid bruit, JVD, lymphadenopathy, thyromegaly Respiratory exam: PRESENT: clear to auscultation connor, symmetrical, unlabored, wheezes - throughout. ABSENT: rales, rhonchi Cardiovascular exam: PRESENT: RRR. ABSENT: diastolic murmur, rubs, systolic murmur Pulses: PRESENT: normal dorsalis pedis pul Vascular exam: PRESENT: normal capillary refill GI/Abdominal exam: PRESENT: normal bowel sounds, soft. ABSENT: distended, guarding, mass, organolmegaly, rebound, tenderness Rectal exam: PRESENT: deferred Extremities exam: PRESENT: full ROM. ABSENT: calf tenderness, clubbing, pedal edema Neurological exam: PRESENT: alert, awake, oriented to person, oriented to place, oriented to time, oriented to situation, CN II-XII grossly intact. ABSENT: motor sensory deficit Psychiatric exam: PRESENT: appropriate affect, normal mood. ABSENT: homicidal ideation, suicidal ideation Skin exam: PRESENT: dry, intact, warm. ABSENT: cyanosis, rash Results Laboratory Results: 01/01/19 04:45 01/01/19 04:45 12/31/18 12/31/18 01/01/19 07:45 07:45 04:45 WBC 9.9 11.6 H RBC 4.47 4.34 Hgb 11.7 L 11.2 L Hct 35.3 L 34.1 L MCV 79 L 79 L MCH 26.2 L 25.9 L MCHC 33.2 32.9 RDW 14.6 H 14.9 H Plt Count 386 375 Seg Neutrophils % 82.7 H Lymphocytes % 11.5 L Monocytes % 5.6 Eosinophils % 0.0 Basophils % 0.2 Absolute Neutrophils 8.2 Absolute Lymphocytes 1.1 Absolute Monocytes 0.6 Absolute Eosinophils 0.0 Absolute Basophils 0.0 Sodium 143.8 Potassium 4.1 Chloride 106 Carbon Dioxide 26 Anion Gap 12 BUN 16 Creatinine 0.62 Est GFR ( Amer) > 60 Est GFR (Non-Af Amer) > 60 Glucose 182 H Calcium 10.2 Total Bilirubin 0.2 AST 13 L ALT 21 Alkaline Phosphatase 91 Total Protein 7.2 Albumin 4.3 01/01/19 04:45 WBC RBC Hgb Hct MCV MCH MCHC RDW Plt Count Seg Neutrophils % Lymphocytes % Monocytes % Eosinophils % Basophils % Absolute Neutrophils Absolute Lymphocytes Absolute Monocytes Absolute Eosinophils Absolute Basophils Sodium 142.1 Potassium 4.3 Chloride 105 Carbon Dioxide 28 Anion Gap 9 BUN 14 Creatinine 0.59 Est GFR ( Amer) > 60 Est GFR (Non-Af Amer) > 60 Glucose 239 H Calcium 9.3 Total Bilirubin AST ALT Alkaline Phosphatase Total Protein Albumin Impressions: Chest X-Ray 12/31/18 06:12 IMPRESSION: No pneumonia. Assessment and Plan - Diagnosis (1) Acute exacerbation of chronic obstructive pulmonary disease (COPD) Is this a current diagnosis for this admission?: Yes Plan: Patient is admitted to the medical floor and continuous cardiac telemetry. She is provided supplemental oxygen as needed to maintain saturations >88%. She is provided scheduled and as needed nebulizer treatment. Continue Solu-Medrol; will decrease dose today. Mucinex twice daily. Incentive spirometer and flutter valve to bedside. No indications for antibiotic therapy at this time as the patient has a normal white count, is afebrile, with clear chest x-ray. (2) Diabetes mellitus type 2 in obese Is this a current diagnosis for this admission?: Yes Plan: Patient's home dose metformin is held while admitted. She is placed on a consistent carb and cardiac diet. Accu-Cheks before meals and at bedtime with Humalog for sliding scale coverage. Hypoglycemia protocol in place. (3) GERD (gastroesophageal reflux disease) Qualifiers: Esophagitis presence: without esophagitis Qualified Code(s): K21.9 - Gastro-esophageal reflux disease without esophagitis Is this a current diagnosis for this admission?: Yes Plan: Pepcid twice daily. (4) Hypertension Qualifiers: Hypertension type: essential hypertension Qualified Code(s): I10 - Essential (primary) hypertension Is this a current diagnosis for this admission?: Yes Plan: Cardiac/consistent carb diet. Patient's home dose carvedilol and diltiazem are continued. - Time Time Spent with patient: 15-24 minutes Medications reviewed and adjusted accordingly: Yes Anticipated discharge: Home Within: within 24 hours
[2019-01-02] MEDS: IPRATROPIUM/ALBUTEROL 0.5-2.5 MG/3 ML AMPUL NEB SCH ×4 (01:31→20:50)
[2019-01-02] MEDS: HEPARIN SOD (PORCINE) 5,000 UNIT/ML 1 ML SYRINGE SUBCUT SCH ×3 (05:50→21:03)
[2019-01-02] MEDS: METHYLPREDNISOLONE INJ 40 MG/1 ML SDV IV SCH ×3 (06:02→21:18)
[2019-01-02] MEDS: INSULIN LISPRO 100 UNIT/ML 3 ML VIAL SUBCUT SCH ×4 (07:31→21:17)
[2019-01-02] MEDS: DILTIAZEM HCL 240 MG CAPSULE.CR PO SCH ×2 (09:00→21:18)
[2019-01-02] MEDS: DOCUSATE SODIUM 100 MG CAPSULE PO SCH (09:01)
[2019-01-02] MEDS: FAMOTIDINE 20 MG TABLET PO SCH ×2 (09:01→21:18)
[2019-01-02] MEDS: CARVEDILOL 3.125 MG TABLET PO SCH ×2 (09:01→21:18)
--- NOTE | 2019-01-02 12:14 | PDOC PROGRESS REPORT ---
Subjective Progress Note for:: 01/02/19 Subjective:: ADDIE STEWART is a 58 year old female with a past medical history significant for COPD, asthma, hypertension, DM 2, and GERD who was admitted 12/31/18 for COPD exacerbation. Patient was seen on morning rounds. She was found sitting up to the edge of the bed, comfortably on room air. She reports she is feeling slightly better. She does continues to have audible wheezing and shortness of breath with minimal activity. She denies fever, chills, headache, dizziness, chest pain, palpitations, orthopnea, abdominal pain, nausea and vomiting. She does have a slightly productive cough. She has no other questions or concerns today. No concerns per nursing. Reason For Visit: COPD WITH EXACERBATION Physical Exam Vital Signs: Temp Pulse Resp BP Pulse Ox 98.0 F 79 18 115/67 96 01/02/19 11:00 01/02/19 11:00 01/02/19 11:00 01/02/19 11:00 01/02/19 11:00 Intake & Output 01/01/19 01/02/19 01/03/19 06:59 06:59 06:59 Intake Total 940 2140 Balance 940 2140 Weight 70.1 kg 71.3 kg General appearance: PRESENT: no acute distress, cooperative, well-developed, well-nourished - overweight Head exam: PRESENT: atraumatic, normocephalic Eye exam: PRESENT: conjunctiva pink, EOMI, PERRLA. ABSENT: scleral icterus Ear exam: PRESENT: normal external ear exam Mouth exam: PRESENT: moist, tongue midline Neck exam: ABSENT: carotid bruit, JVD, lymphadenopathy, thyromegaly Respiratory exam: PRESENT: decreased breath sounds - bibasilar, prolonged expiratory phas, rhonchi, symmetrical, unlabored, wheezes - throughout. ABSENT: rales Cardiovascular exam: PRESENT: RRR, +S1, +S2. ABSENT: diastolic murmur, rubs, systolic murmur Pulses: PRESENT: normal dorsalis pedis pul Vascular exam: PRESENT: normal capillary refill GI/Abdominal exam: PRESENT: normal bowel sounds, soft. ABSENT: distended, guarding, mass, organolmegaly, rebound, tenderness Rectal exam: PRESENT: deferred Extremities exam: PRESENT: full ROM. ABSENT: calf tenderness, clubbing, pedal edema Musculoskeletal exam: PRESENT: ambulatory Neurological exam: PRESENT: alert, awake, oriented to person, oriented to place, oriented to time, oriented to situation, CN II-XII grossly intact. ABSENT: motor sensory deficit Psychiatric exam: PRESENT: appropriate affect, normal mood. ABSENT: homicidal ideation, suicidal ideation Skin exam: PRESENT: dry, intact, warm. ABSENT: cyanosis, rash Results Laboratory Results: 01/01/19 04:45 01/01/19 04:45 Impressions: Chest X-Ray 12/31/18 06:12 IMPRESSION: No pneumonia. Assessment and Plan - Diagnosis (1) Acute exacerbation of chronic obstructive pulmonary disease (COPD) Is this a current diagnosis for this admission?: Yes Plan: Lung sounds somewhat worse today. Continues to maintain saturations while at rest on room air. Patient is admitted to the medical floor and continuous cardiac telemetry. She is provided supplemental oxygen as needed to maintain saturations >88%. She is provided scheduled and as needed nebulizer treatment. Continue Solu-Medrol. Mucinex twice daily. Start daily Singulair. Incentive spirometer and flutter valve to bedside. Ambulate in hallways. No indications for antibiotic therapy at this time as the patient has a normal white count, is afebrile, with clear chest x-ray. (2) Diabetes mellitus type 2 in obese Is this a current diagnosis for this admission?: Yes Plan: Patient's home dose metformin is held while admitted. She is placed on a consistent carb and cardiac diet. Accu-Cheks before meals and at bedtime with Humalog for sliding scale coverage. Hypoglycemia protocol in place. (3) GERD (gastroesophageal reflux disease) Qualifiers: Esophagitis presence: without esophagitis Qualified Code(s): K21.9 - Gastro-esophageal reflux disease without esophagitis Is this a current diagnosis for this admission?: Yes Plan: Pepcid twice daily. (4) Hypertension Qualifiers: Hypertension type: essential hypertension Qualified Code(s): I10 - Essential (primary) hypertension Is this a current diagnosis for this admission?: Yes Plan: Acceptable blood pressures. Cardiac/consistent carb diet. Patient's home dose carvedilol and diltiazem are continued. - Time Time Spent with patient: 15-24 minutes Medications reviewed and adjusted accordingly: Yes Anticipated discharge: Home Within: within 24 hours
[2019-01-02] MEDS: GUAIFENESIN 600 MG TABLET.SA PO SCH (21:18)
[2019-01-02] MEDS ORDERED: MONTELUKAST SODIUM 10 MG TABLET PO SCH (22:00)
[2019-01-03] MEDS: IPRATROPIUM/ALBUTEROL 0.5-2.5 MG/3 ML AMPUL NEB SCH ×3 (02:36→13:27)
[2019-01-03] MEDS: HEPARIN SOD (PORCINE) 5,000 UNIT/ML 1 ML SYRINGE SUBCUT SCH (05:05)
[2019-01-03] MEDS: METHYLPREDNISOLONE INJ 40 MG/1 ML SDV IV SCH (05:23)
[2019-01-03 06:04] LABS: HEMATOCRIT 35.6 % (36.0-47.0); HEMOGLOBIN 11.9 g/dL (12.0-15.5); MEAN CORPUSCULAR HEMOGLOBIN 26.3 pg (27.0-33.4); MEAN CORPUSCULAR HGB CONC 33.5 g/dL (32.0-36.0); MEAN CORPUSCULAR VOLUME 79 fl (80-97); PLATELET COUNT 375 10^3/uL (150-450); RED BLOOD COUNT 4.53 10^6/uL (3.72-5.28); RED CELL DISTRIBUTION WIDTH 14.3 % (11.5-14.0); WHITE BLOOD COUNT 11.7 10^3/uL (4.0-10.5)
[2019-01-03 06:31] LABS: ANION GAP 8 (5-19); BLOOD UREA NITROGEN 17 mg/dL (7-20); CALCIUM 9.1 mg/dL (8.4-10.2); CARBON DIOXIDE 29 mmol/L (22-30); CHLORIDE 105 mmol/L (98-107); GLUCOSE 252 mg/dL (75-110); POTASSIUM 4.1 mmol/L (3.6-5.0); SODIUM 141.5 mmol/L (137-145)
[2019-01-03] MEDS: INSULIN LISPRO 100 UNIT/ML 3 ML VIAL SUBCUT SCH ×2 (07:19→12:15)
[2019-01-03] MEDS: DOCUSATE SODIUM 100 MG CAPSULE PO SCH (09:06)
[2019-01-03] MEDS: DILTIAZEM HCL 240 MG CAPSULE.CR PO SCH (09:09)
[2019-01-03] MEDS: FAMOTIDINE 20 MG TABLET PO SCH (09:10)
[2019-01-03] MEDS: GUAIFENESIN 600 MG TABLET.SA PO SCH (09:10)
[2019-01-03] MEDS: CARVEDILOL 3.125 MG TABLET PO SCH (09:10)
[2019-01-03 10:00] VITALS: BP 152/75
[2019-01-03] MEDS ORDERED: PREDNISONE 20 MG TABLET PO SCH (10:00)
--- NOTE | 2019-01-05 13:30 | PDOC DISCHARGE SUMMARY ---
General - Admit/Disc Date/PCP Admission Date/Primary Care Provider: 12/31/18 09:22 BONIFACIO MELENDEZDEEDEE-Luana Discharge Date: 01/03/19 - Discharge Diagnosis (1) Acute exacerbation of chronic obstructive pulmonary disease (COPD) Is this a current diagnosis for this admission?: Yes Summary: Resolved. Patient is ambulatory on room air, speaks in full sentences, and has clear lung sounds throughout. Patient was admitted to the medical floor and continuous cardiac telemetry and supported with supplemental oxygen as needed to maintain saturations >88%, scheduled and as needed nebulizer treatment, IV Solu-Medrol, Mucinex twice daily, Singulair, and Incentive spirometer and flutter valve. As her symptoms improved, her Solu-Medrol was weaned. She is discharged on p.o. prednisone. At time of discharge, the patient had clear lung sounds throughout and maintains oxygen saturations while ambulatory on room air. She is discharged to home in stable condition. She is advised to follow up with her primary care provider within 1 week and to return to the emergency department as needed for concerning symptoms. (2) Diabetes mellitus type 2 in obese Is this a current diagnosis for this admission?: Yes Summary: Resume outpatient regiment. (3) GERD (gastroesophageal reflux disease) Is this a current diagnosis for this admission?: Yes Summary: Pepcid twice daily. (4) Hypertension Is this a current diagnosis for this admission?: Yes Summary: Acceptable blood pressures. Cardiac/consistent carb diet. Continue home dose carvedilol and diltiazem. - Additional Information Resuscitation Status: Full Code Discharge Diet: Regular Discharge Activity: Activity As Tolerated Prescriptions: Albuterol Sulfate [Proventil Hfa] 6.7 gm IH Q4HP PRN #1 hfa.aer.ad PRN Reason: Shortness Of Breath Guaifenesin [Mucinex Sr 600 mg Tablet.sa] 600 mg PO Q12 #14 tablet.sa Ipratropium/Albuterol Sulfate [Duoneb 3 ml Ampul] 3 ml NEB RTQ8HP PRN #90 vial.neb PRN Reason: Shortness Of Breath Montelukast Sodium [Singulair 10 mg Tablet] 10 mg PO QHS #30 tablet Prednisone [Deltasone 20 mg Tablet] 60 mg PO DAILY #12 tablet Home Medications: Albuterol Sulfate [Ventolin 0.083% Neb 2.5 mg/3 mL Ampul] 1 vial NEB Q8HP PRN 07/27/18 Carvedilol [Coreg 3.125 mg Tablet] 1 tab PO BID 07/28/18 Metformin HCl 1,000 mg PO BID 07/28/18 Budesonide/Formoterol Fumarate [Symbicort HFA 160-4.5 mcg Inhaler 6 gm] 2 puff IH Q12 inhaler 07/31/18 Diltiazem HCl [Cardizem Cd 240 mg Capsule.cr] 240 mg PO Q12 capsule.cr 07/31/18 Budesonide [Pulmicort] 0.5 mg IH BID #30 ampul.neb 10/26/18 Acetaminophen [Tylenol 325 mg Tablet] 650 mg PO Q4HP PRN tablet 01/03/19 Albuterol Sulfate [Proventil Hfa] 6.7 gm IH Q4HP PRN #1 hfa.aer.ad 01/03/19 Docusate Sodium [Colace 100 mg Capsule] 100 mg PO DAILY capsule 01/03/19 Guaifenesin [Mucinex Sr 600 mg Tablet.sa] 600 mg PO Q12 #14 tablet.sa 01/03/19 Ipratropium/Albuterol Sulfate [Duoneb 3 ml Ampul] 3 ml NEB RTQ8HP PRN #90 vial.neb 01/03/19 Montelukast Sodium [Singulair 10 mg Tablet] 10 mg PO QHS #30 tablet 01/03/19 Prednisone [Deltasone 20 mg Tablet] 60 mg PO DAILY #12 tablet 01/03/19 History of Present Illness History of Present Illness: ADDIE STEWART is a 58 year old female with a past medical history significant for COPD, asthma, hypertension, DM 2, and GERD who presents to the emergency department today with a complaint of 1 week of slowly worsening shortness of br eath, productive cough, and wheezing. She was seen in the emergency department yesterday and provided nebulizer treatments steroid therapy and discharged home. She returns today after multiple nebulizer treatments at home without relief of symptoms. Evaluation in the emergency department reveals tachycardia (HR 128), tachypnea (RR 23), hypoxia on room air (90%), benign chest x-ray, and laboratory evaluation revealing anemia (hemoglobin 11.7 at baseline), and normal WBC with elevated neutrophil count (Likely related to recent steroid use). She is referred to the hospitalist service for admission and management of COPD exacerbation. Physical Exam Vital Signs: Temp Pulse Resp BP Pulse Ox 97.7 F 88 15 152/75 H 100 01/03/19 09:59 01/03/19 09:59 01/03/19 09:59 01/03/19 09:59 01/03/19 09:59 Intake & Output 01/02/19 01/03/19 01/04/19 06:59 06:59 06:59 Intake Total 2139 Balance 2139 Weight 71.3 kg 71.3 kg General appearance: PRESENT: no acute distress, well-developed, well-nourished - overweight Head exam: PRESENT: atraumatic, normocephalic Eye exam: PRESENT: conjunctiva pink, EOMI, PERRLA. ABSENT: scleral icterus Ear exam: PRESENT: normal external ear exam Mouth exam: PRESENT: moist, tongue midline Neck exam: ABSENT: carotid bruit, JVD, lymphadenopathy, thyromegaly Respiratory exam: PRESENT: clear to auscultation connor. ABSENT: rales, rhonchi, wheezes Cardiovascular exam: PRESENT: RRR. ABSENT: diastolic murmur, rubs, systolic murmur Pulses: PRESENT: normal dorsalis pedis pul Vascular exam: PRESENT: normal capillary refill GI/Abdominal exam: PRESENT: normal bowel sounds, soft. ABSENT: distended, guarding, mass, organolmegaly, rebound, tenderness Rectal exam: PRESENT: deferred Extremities exam: PRESENT: full ROM. ABSENT: calf tenderness, clubbing, pedal edema Musculoskeletal exam: PRESENT: ambulatory Neurological exam: PRESENT: alert, awake, oriented to person, oriented to place, oriented to time, oriented to situation, CN II-XII grossly intact. ABSENT: motor sensory deficit Psychiatric exam: PRESENT: appropriate affect, normal mood. ABSENT: homicidal ideation, suicidal ideation Skin exam: PRESENT: dry, intact, warm. ABSENT: cyanosis, rash Results Laboratory Results: 01/03/19 05:15 01/03/19 05:15 01/03/19 01/03/19 05:15 05:15 WBC 11.7 H RBC 4.53 Hgb 11.9 L Hct 35.6 L MCV 79 L MCH 26.3 L MCHC 33.5 RDW 14.3 H Plt Count 375 Sodium 141.5 Potassium 4.1 Chloride 105 Carbon Dioxide 29 Anion Gap 8 BUN 17 Creatinine 0.54 Est GFR ( Amer) > 60 Est GFR (Non-Af Amer) > 60 Glucose 252 H Calcium 9.1 Impressions: Chest X-Ray 12/31/18 06:12 IMPRESSION: No pneumonia. Qualifiers - * PATIENT BEING DISCHARGED WITH ANY OF THE FOLLOWING DIAGNOSIS: No Acute Heart Failure - Is this a Heart Failure Patient?: No Plan Discharge Plan: Fllow up with primary care provider within 1 week. Take your medications as prescribed. Avoid known triggers (smoke, dust, pollen, allergens). Do not smoke. Return to the emergency department as needed for concerning symptoms. Time Spent: Greater than 30 Minutes
== END 2019-01-03 13:00 | disposition home or self-care (01) ==
LOC: ER 05:41 → EH 09:22 → 4S 10:08
PROVIDERS: ADMIT Internal Medicine; ATTEND Internal Medicine
DX: J44.1 Chronic obstructive pulmonary disease with (acute) exacerbation (principal); E11.9 Type 2 diabetes mellitus without complications; K21.9 Gastro-esophageal reflux disease without esophagitis; I10 Essential (primary) hypertension; M19.90 Unspecified osteoarthritis, unspecified site; Z87.891 Personal history of nicotine dependence; Z79.84 Long term (current) use of oral hypoglycemic drugs; Z79.899 Other long term (current) drug therapy
CPT/HCPCS: 94640 ×6; 99284; 96374; 36415 ×3; 82962 ×4; 85025; 85027 ×2; 80048 ×2; 80053; 71046; 94667; 94668; G0378 ×4; J3490 ×16; J1815 ×4; J2920 ×4; J2930; J7512; J7620 ×4

== ENCOUNTER 2019-01-29 13:15 | Emergency (ER) | payer MEDICAID ==
[2019-01-29] MEDS ORDERED: IPRATROPIUM/ALBUTEROL 0.5-2.5 MG/3 ML AMPUL NEB ONE (14:02)
[2019-01-29] MEDS ORDERED: PREDNISONE 20 MG TABLET PO ONE (14:06)
--- NOTE | 2019-01-29 14:09 | ER Document Report ---
ED Medical Screen (RME) - General Chief Complaint: Shortness Of Breath Stated Complaint: DIFFICULTY BREATHING Time Seen by Provider: 01/29/19 14:02 Primary Care Provider: BONIFACIO MELENDEZ FNP-C [Primary Care Provider] - Follow up as needed Notes: 58 female with diabetes, hypertension, COPD presents emergency department chief complaint of acute shortness of breath that started yesterday. She said this is a typical COPD exacerbation for her and she is try due to DuoNeb's at home. She was admitted here almost 1 month ago for the same problem and discharged without complications. She denies fevers or recent illness, complains of rhinorrhea and congestion, denies cough. No other complaints. I have greeted and performed a rapid initial assessment of this patient. A comprehensive ED assessment and evaluation of the patient, analysis of test results and completion of medical decision making process will be conducted by an additional ED providers. TRAVEL OUTSIDE OF THE [place] IN LAST 30 DAYS: No - Related Data Allergies/Adverse Reactions: benzonatate [From Major Aide] Allergy (Verified 01/29/19 13:27) RCING HEARTBEART NSAIDS (Non-Steroidal Anti-Inflamma Allergy (Verified 01/29/19 13:27) RACING HEARTBEAT Past Medical History - Social History Chew tobacco use (# tins/day): No Frequency of alcohol use: None Drug Abuse: None - Past Medical History Cardiac Medical History: Reports: Hx Hypertension Denies: Hx Atrial Fibrillation, Hx Coronary Artery Disease, Hx DVT, Hx Pulmonary Embolism Pulmonary Medical History: Reports: Hx Asthma, Hx Bronchitis, Hx COPD, Hx Pneumonia, Hx Respiratory Failure Denies: Hx Intubation Neurological Medical History: Denies: Hx Seizures Endocrine Medical History: Reports: Hx Diabetes Mellitus Type 2. Denies: Hx Diabetes Mellitus Type 1, Hx Hyperthyroidism, Hx Hypothyroidism Renal/ Medical History: Denies: Hx Peritoneal Dialysis GI Medical History: Reports: Hx Gastroesophageal Reflux Disease. Denies: Hx Cirrhosis, Hx Hepatitis Musculoskeltal Medical History: Reports Hx Arthritis, Denies Hx Gout Skin Medical History: Denies Hx Eczema, Denies Hx Psoriasis Psychiatric Medical History: Denies: Hx Depression Infectious Medical History: Denies: Hx Hepatitis - Immunizations Immunizations up to date: Yes Hx Diphtheria, Pertussis, Tetanus Vaccination: Yes History of Influenza Vaccine for 04/2017 - 09/2017 Season: Yes Influenza Administration Date for 04/2017 - 09/2017 Season: 04/12/17 Physical Exam - Vital signs Vitals: Temp Pulse Resp BP Pulse Ox 97.3 F 108 H 26 H 148/74 H 96 01/29/19 13:32 01/29/19 13:32 01/29/19 13:32 01/29/19 13:32 01/29/19 13:32 Course - Vital Signs Vital signs: Temp Pulse Resp BP Pulse Ox 97.3 F 108 H 26 H 148/74 H 96 01/29/19 13:32 01/29/19 13:32 01/29/19 13:32 01/29/19 13:32 01/29/19 13:32 Doctor's Discharge - Discharge Referrals: BONIFACIO MELENDEZ FNP-C [Primary Care Provider] - Follow up as needed
--- NOTE | 2019-01-29 14:35 | RADIOLOGY REPORT (SQ) ---
EXAM DESCRIPTION: CHEST 2 VIEWS COMPLETED DATE/TIME: 01/29/2019 2:20 pm REASON FOR STUDY: SOB COMPARISON: 12/31/2018. EXAM PARAMETERS: NUMBER OF VIEWS: two views TECHNIQUE: Digital Frontal and Lateral radiographic views of the chest acquired. RADIATION DOSE: NA LIMITATIONS: none FINDINGS: LUNGS AND PLEURA: No acute infiltrates or effusions. MEDIASTINUM AND HILAR STRUCTURES: No masses or contour abnormalities. HEART AND VASCULAR STRUCTURES: Normal heart size. Pulmonary vasculature is normal. BONES: Minimal dorsal spondylosis. . HARDWARE: None in the chest. OTHER: No other significant finding. IMPRESSION: NO ACUTE DISEASE. TECHNICAL DOCUMENTATION: JOB ID: [id number] [employer]- All Rights Reserved Reading location - IP/workstation name: [email or web address]
[2019-01-29] MEDS ORDERED: ALBUTEROL SULFATE 0.083% NEB 2.5 MG/3 ML AMPUL NEB ONE (16:22)
[2019-01-29 16:23] LABS: ABSOLUTE EOSINOPHILS # (AUTO) 0.3 10^3/uL (0.0-0.6); ABSOLUTE LYMPHOCYTES (AUTO) 1.6 10^3/uL (0.5-4.7); ABSOLUTE MONOCYTES (AUTO) 0.5 10^3/uL (0.1-1.4); ABSOLUTE NEUT (AUTO) 6.2 10^3/uL (1.7-8.2); BASOPHILS % (AUTO) 0.5 % (0-2); EOSINOPHILS % (AUTO) 3.9 % (0-6); HEMATOCRIT 35.6 % (36.0-47.0); HEMOGLOBIN 11.9 g/dL (12.0-15.5); LYMPHOCYTES % (AUTO) 18.3 % (13-45); MEAN CORPUSCULAR HEMOGLOBIN 26.4 pg (27.0-33.4); MEAN CORPUSCULAR HGB CONC 33.5 g/dL (32.0-36.0); MEAN CORPUSCULAR VOLUME 79 fl (80-97); MONOCYTES % (AUTO) 6.1 % (3-13); PLATELET COUNT 468 10^3/uL (150-450); RED BLOOD COUNT 4.53 10^6/uL (3.72-5.28); RED CELL DISTRIBUTION WIDTH 14.2 % (11.5-14.0); SEGMENTED NEUTROPHILS % (AUTO) 71.2 % (42-78); TOTAL CELLS COUNTED % (AUTO) 100 %; VENOUS BLOOD BASE EXCESS 3.8 mmol/L; VENOUS BLOOD HCO3 29.9 mmol/L (20-32); VENOUS BLOOD PCO2 51.9 mmHg (35-63); VENOUS BLOOD PH 7.38 (7.30-7.42); WHITE BLOOD COUNT 8.6 10^3/uL (4.0-10.5)
[2019-01-29 16:42] LABS: ALANINE AMINOTRANSFERASE 23 U/L (9-52); ALBUMIN 4.2 g/dL (3.5-5.0); ALKALINE PHOSPHATASE 98 U/L (38-126); ANION GAP 6 (5-19); ASPARTATE AMINO TRANSFERASE 20 U/L (14-36); BILIRUBIN,DIRECT 0.2 mg/dL (0.0-0.4); BILIRUBIN,TOTAL 0.4 mg/dL (0.2-1.3); BLOOD UREA NITROGEN 10 mg/dL (7-20); CALCIUM 9.6 mg/dL (8.4-10.2); CARBON DIOXIDE 29 mmol/L (22-30); CHLORIDE 107 mmol/L (98-107); GLUCOSE 101 mg/dL (75-110); POTASSIUM 3.6 mmol/L (3.6-5.0); SODIUM 142.2 mmol/L (137-145)
[2019-01-29 17:05] LABS: A TYPE INFLUENZA AG NEGATIVE (NEGATIVE); B INFLUENZA AG NEGATIVE (NEGATIVE)
--- NOTE | 2019-01-29 18:08 | EKG REPORT ---
SEVERITY:- OTHERWISE NORMAL ECG - SINUS TACHYCARDIA : Confirmed by: Raman Hernandez MD 29-Jan-2019 18:08:26
[2019-01-29 19:18] VITALS: BP 133/72
--- NOTE | 2019-01-29 21:44 | ER Document Report ---
Entered by LENNIE ROWLEY SCRIBE 01/29/19 [id number] Acting as scribe for:EDVIN DEJESUS DO ED General - General Chief Complaint: Shortness Of Breath Stated Complaint: DIFFICULTY BREATHING Time Seen by Provider: 01/29/19 14:02 Primary Care Provider: BONIFACIO MELENDEZ FNP-C [Primary Care Provider] - Follow up as needed Mode of Arrival: Ambulatory Information source: Patient Notes: Patient is a 58 year old female with COPD, HTN, type 2 diabetes presents to the emergency department complaining of shortness of breath onset 3 days ago associated with nasal congestion and rhinorrhea. Patient states her shortness of breath significantly worsened today. She states she has previously been hospitalized due to COPD but denies any intubations. She states her current symptoms feel similar to her previous COPD exacerbations. She denies any headaches, chest pain, nausea or vomiting. Patient's PCP is DEEDEE Harley. TRAVEL OUTSIDE OF THE [place] IN LAST 30 DAYS: No - Related Data Allergies/Adverse Reactions: benzonatate [From Tessalon Perles] Allergy (Verified 01/29/19 13:27) RCING HEARTBEART NSAIDS (Non-Steroidal Anti-Inflamma Allergy (Verified 01/29/19 13:27) RACING HEARTBEAT Past Medical History - General Information source: Patient - Social History Smoking Status: Former Smoker Cigarette use (# per day): No Chew tobacco use (# tins/day): No Smoking Education Provided: No Frequency of alcohol use: None Drug Abuse: None Family History: COPD, DM, Hypertension Patient has suicidal ideation: No Patient has homicidal ideation: No - Past Medical History Cardiac Medical History: Reports: Hx Hypertension Pulmonary Medical History: Reports: Hx Asthma, Hx Bronchitis, Hx COPD, Hx Pneumonia, Hx Respiratory Failure Endocrine Medical History: Reports: Hx Diabetes Mellitus Type 2 GI Medical History: Reports: Hx Gastroesophageal Reflux Disease Musculoskeletal Medical History: Reports Hx Arthritis - Immunizations Immunizations up to date: Yes Hx Diphtheria, Pertussis, Tetanus Vaccination: Yes Review of Systems - Review of Systems Constitutional: No symptoms reported EENT: See HPI, Nose congestion, Nose discharge Cardiovascular: No symptoms reported Respiratory: See HPI, Short of breath Gastrointestinal: No symptoms reported Genitourinary: No symptoms reported Female Genitourinary: No symptoms reported Musculoskeletal: No symptoms reported Skin: No symptoms reported Hematologic/Lymphatic: No symptoms reported Neurological/Psychological: No symptoms reported -: Yes All other systems reviewed and negative Physical Exam - Vital signs Vitals: Temp Pulse Resp BP Pulse Ox 97.3 F 108 H 26 H 148/74 H 96 01/29/19 13:32 01/29/19 13:32 01/29/19 13:32 01/29/19 13:32 01/29/19 13:32 - Notes Notes: GENERAL: Alert, interacts well. No acute distress. HEAD: Normocephalic, atraumatic. EYES: Pupils equal, round, and reactive to light. Extraocular movements intact. ENT: Oral mucosa moist, tongue midline. NECK: Full range of motion. Supple. Trachea midline. LUNGS: Prolonged expiratory phase. Moderate diffuse expiratory wheezes. Able to speak in complete sentences but stops and takes a breath after 1 sentence. 92% oxygen saturation on room air, good waveform on site director per my interpretation. HEART: Regular rate and rhythm. No murmurs, gallops, or rubs. ABDOMEN: Soft, non-tender. Non-distended. Bowel sounds present in all 4 quadrants. No guarding, rigidity, or rebound. EXTREMITIES: Moves all 4 extremities spontaneously. No edema, radial and dorsalis pedis pulses 2/4 bilaterally. No cyanosis. NEUROLOGICAL: Alert and oriented x3. Normal speech. PSYCH: Normal affect, normal mood. SKIN: Warm, dry, normal turgor. No rashes or lesions noted. Course - Re-evaluation Re-evalutation: 01/29/19 18:18 Patient rechecked. Patient's wheezing has not resolved but has significantly decreased. Will do a trial ambulation. 01/29/19 19:06 CBC shows anemia with hemoglobin 11.9, platelets somewhat elevated at 468, venous blood gas unremarkable, CMP unremarkable, flu swabs negative, chest x-ray unremarkable EKG is nonischemic. Patient improved significantly after several breathing treatments and steroids. Past trial of ambulation without difficulty. Will be discharged home on steroid taper. No indication for antibiotics at this time. - Vital Signs Vital signs: Temp Pulse Resp BP Pulse Ox 98.0 F 108 H 20 133/72 H 95 01/29/19 19:17 01/29/19 13:32 01/29/19 19:00 01/29/19 19:00 01/29/19 19:00 - Laboratory Result Diagrams: 01/29/19 16:10 01/29/19 16:10 Laboratory results interpreted by me: 01/29/19 16:10 Hgb 11.9 L Hct 35.6 L MCV 79 L MCH 26.4 L RDW 14.2 H Plt Count 468 H - EKG Interpretation by Me Additional EKG results interpreted by me: 01/29/19 19:07 EKG shows sinus tachycardia at a rate of 102, normal axis, normal intervals, no ST segment elevations or depressions, there is T wave flattening in aVL per my interpretation. Discharge - Discharge Clinical Impression: COPD exacerbation Condition: Stable Disposition: HOME, SELF-CARE Additional Instructions: Please take the steroids as directed until they are gone. Please use your inhaler or your nebulizer up to every 4 hours as needed. Return to the emergency department for fevers, chest pain, worsening shortness of breath or any new or concerning symptoms. Prescriptions: Prednisone [Deltasone 20 mg Tablet] 2 tab PO DAILY 5 Days tablet Referrals: BONIFACIO MELENDEZ FNP-C [Primary Care Provider] - Follow up as needed I personally performed the services described in the documentation, reviewed and edited the documentation which was dictated to the scribe in my presence, and it accurately records my words and actions.
== END 2019-01-29 19:20 | disposition home or self-care (01) ==
LOC: ER 13:15
DX: J44.1 Chronic obstructive pulmonary disease with (acute) exacerbation (principal); R06.02 Shortness of breath; R09.81 Nasal congestion; I10 Essential (primary) hypertension; E11.9 Type 2 diabetes mellitus without complications
CPT/HCPCS: 93005; 94640 ×2; 99285; 36415; 85025; 80053; 82803; 87804; 71046; 93010; J7512; J7620

== ENCOUNTER 2019-01-30 09:24 | Inpatient (IN) | payer MEDICAID ==
[2019-01-30] MEDS ORDERED: ALBUTEROL SULFATE 0.083% NEB 2.5 MG/3 ML AMPUL NEB ONE ×2 (09:45→11:35)
[2019-01-30] MEDS ORDERED: IPRATROPIUM/ALBUTEROL 0.5-2.5 MG/3 ML AMPUL NEB ONE (09:58)
[2019-01-30] MEDS ORDERED: METHYLPREDNISOLONE INJ 125 MG/2 ML SDV IV ONE (09:58)
[2019-01-30] MEDS ORDERED: NORMAL SALINE 1000 ML 1,000 ML IV ONE (09:59)
[2019-01-30 10:08] LABS: HEMATOCRIT 36.2 % (36.0-47.0); HEMOGLOBIN 12.1 g/dL (12.0-15.5); MEAN CORPUSCULAR HGB CONC 33.4 g/dL (32.0-36.0); MEAN CORPUSCULAR VOLUME 78 fl (80-97); PLATELET COUNT 494 10^3/uL (150-450); RED BLOOD COUNT 4.63 10^6/uL (3.72-5.28); RED CELL DISTRIBUTION WIDTH 14.4 % (11.5-14.0); WHITE BLOOD COUNT 11.7 10^3/uL (4.0-10.5)
[2019-01-30 10:24] LABS: ALANINE AMINOTRANSFERASE 21 U/L (9-52); ALBUMIN 4.4 g/dL (3.5-5.0); ALKALINE PHOSPHATASE 91 U/L (38-126); ANION GAP 9 (5-19); ASPARTATE AMINO TRANSFERASE 20 U/L (14-36); BILIRUBIN,DIRECT 0.2 mg/dL (0.0-0.4); BILIRUBIN,TOTAL 0.3 mg/dL (0.2-1.3); BLOOD UREA NITROGEN 13 mg/dL (7-20); CARBON DIOXIDE 29 mmol/L (22-30); CHLORIDE 107 mmol/L (98-107); CREATINE KINASE 44 U/L (30-135); GLUCOSE 162 mg/dL (75-110); POTASSIUM 3.9 mmol/L (3.6-5.0); TOTAL PROTEIN 7.3 g/dL (6.3-8.2)
[2019-01-30 10:33] LABS: ABSOLUTE LYMPHOCYTES# (MANUAL) 2.9 10^3/uL (0.5-4.7); ABSOLUTE MONOCYTES # (MANUAL) 0.7 10^3/uL (0.1-1.4); BASOPHILS % (MANUAL) 0 % (0-2); EOSINOPHILS % (MANUAL) 1 % (0-6); LYMPHOCYTES % (MANUAL) 25 % (13-45); MONOCYTES % (MANUAL) 6 % (3-13); SEGMENTED NEUTROPHILS % (MAN) 68 % (42-78); TOTAL CELLS COUNTED 100
[2019-01-30 10:34] LABS: ANISOCYTOSIS SLIGHT; HYPOCHROMASIA SLIGHT; PLATELET COMMENT ADEQUATE; TOXIC GRANULATION SLIGHT; TOXIC VACUOLATION PRESENT
[2019-01-30 10:36] LABS: CREATINE KINASE MB 0.47 ng/mL (<4.55)
[2019-01-30 10:37] LABS: TROPONIN I < 0.012 ng/mL
[2019-01-30] MEDS: MAGNESIUM SULFATE/D5W 1 GM/100 ML RTUPB IV SCH ×2 (11:02→12:21)
--- NOTE | 2019-01-30 11:14 | RADIOLOGY REPORT (SQ) ---
EXAM DESCRIPTION: CHEST SINGLE VIEW COMPLETED DATE/TIME: 01/30/2019 11:06 am REASON FOR STUDY: COPD exacerbation COMPARISON: 01/29/2019. EXAM PARAMETERS: NUMBER OF VIEWS: One view. TECHNIQUE: Single frontal radiographic view of the chest acquired. RADIATION DOSE: NA LIMITATIONS: None. FINDINGS: LUNGS AND PLEURA: No opacities, masses or pneumothorax. No pleural effusion. MEDIASTINUM AND HILAR STRUCTURES: No masses. Contour normal. HEART AND VASCULAR STRUCTURES: Heart normal in size. Normal vasculature. BONES: No acute findings. HARDWARE: None in the chest. OTHER: No other significant finding. IMPRESSION: NO ACUTE RADIOGRAPHIC FINDING IN THE CHEST. TECHNICAL DOCUMENTATION: JOB ID: [id number] [employer]- All Rights Reserved Reading location - IP/workstation name: [email or web address]
--- NOTE | 2019-01-30 12:35 | ER Document Report ---
Entered by AZALIA BELTRÁN SCRIBE 01/30/19 0955 Acting as scribe for:SNO BUNCH MD ED Respiratory Problem - General Chief Complaint: Breathing Difficulty Stated Complaint: DIFFICULTY BREATHING Time Seen by Provider: 01/30/19 09:45 Mode of Arrival: Ambulatory Information source: Patient Notes: Patient is a 58 year old female that presents to the emergency department today with complaints of continued shortness of breath. Patient was seen yesterday in this emergency department for the same complaint. Patient was given breathing treatments yesterday and sent home with a prescription for steroids. Patient states she has had a cough with associated yellow colored sputum and nasal congestion. TRAVEL OUTSIDE OF THE [place] IN LAST 30 DAYS: No - Related Data Allergies/Adverse Reactions: benzonatate [From Tessalon Perles] Allergy (Verified 01/30/19 09:25) RCING HEARTBEART NSAIDS (Non-Steroidal Anti-Inflamma Allergy (Verified 01/30/19 09:25) RACING HEARTBEAT Past Medical History - General Information source: Patient, [facility]LY [facility] Records - Social History Smoking Status: Former Smoker Cigarette use (# per day): No Chew tobacco use (# tins/day): No Frequency of alcohol use: None Drug Abuse: None Lives with: Family Family History: COPD, DM, Hypertension Patient has suicidal ideation: No Patient has homicidal ideation: No - Past Medical History Cardiac Medical History: Reports: Hx Hypertension Pulmonary Medical History: Reports: Hx Asthma, Hx Bronchitis, Hx COPD, Hx Pneumonia, Hx Respiratory Failure Endocrine Medical History: Reports: Hx Diabetes Mellitus Type 2 GI Medical History: Reports: Hx Gastroesophageal Reflux Disease Musculoskeletal Medical History: Reports Hx Arthritis - Immunizations Immunizations up to date: Yes Hx Diphtheria, Pertussis, Tetanus Vaccination: Yes Review of Systems - Review of Systems Constitutional: No symptoms reported EENT: See HPI, Nose congestion Cardiovascular: No symptoms reported Respiratory: See HPI, Cough, Short of breath Gastrointestinal: No symptoms reported Genitourinary: No symptoms reported Female Genitourinary: No symptoms reported Musculoskeletal: No symptoms reported Skin: No symptoms reported Hematologic/Lymphatic: No symptoms reported Neurological/Psychological: No symptoms reported -: Yes All other systems reviewed and negative Physical Exam - Vital signs Vitals: Temp Pulse Resp BP Pulse Ox 97.5 F 119 H 22 H 162/74 H 90 L 01/30/19 09:29 01/30/19 09:29 01/30/19 09:29 01/30/19 09:29 01/30/19 09:29 - Notes Notes: Physical Exam: General: Alert, appears well. HEENT: Normocephalic. Atraumatic. PERRL. Extraocular movements intact. Oropharynx clear. Neck: Supple. Non-tender. Respiratory: No respiratory distress. Clear and equal breath sounds bilaterally. Cardiovascular: Regular rate and rhythm. Abdominal: Normal Inspection. Non-tender. No distension. Normal Bowel Sounds. Back: Non-tender. No deformity or step off. Extremities: Moves all four extremities. Upper extremities: Normal inspection. Normal ROM. Lower extremities: Normal inspection. No edema. Normal ROM. Neurological: Normal cognition. AAOx4. Normal speech. Psychological: Normal affect. Normal Mood. Skin: Warm. Dry. Normal color. Course - Vital Signs Vital signs: Temp Pulse Resp BP Pulse Ox 97.7 F 119 H 28 H 140/119 H 100 01/30/19 12:38 01/30/19 09:29 01/30/19 12:01 01/30/19 12:00 01/30/19 12:01 - Laboratory Result Diagrams: 01/30/19 09:45 01/30/19 09:45 Laboratory results interpreted by me: 01/30/19 01/30/19 09:45 09:45 WBC 11.7 H MCV 78 L MCH 26.0 L RDW 14.4 H Plt Count 494 H Sodium 145.3 H Glucose 162 H - Diagnostic Test Radiology reviewed: Image reviewed, Reports reviewed - Chest x-ray does not show any acute cardiopulmonary process - EKG Interpretation by [place] EKG shows normal: Sinus rhythm, [place], Intervals, QRS Complexes, ST-T Waves Rate: Tachycardia - 114 - Consults Dr. Johnston Time consulted: 12:40 Consulted provider: will come to ER Critical Care Note - Critical Care Note Total time excluding time spent on procedures (mins): 40 Discharge - Discharge Clinical Impression: Acute exacerbation of COPD with asthma Condition: Fair Disposition: ADMITTED INPATIENT Admitting Provider: Vickie (Hospitalist) Unit Admitted: Telemetry Scribe Attestation: 01/30/19 11:31 I personally performed the services described in the documentation, reviewed and edited the documentation which was dictated to the scribe in my presence, and it accurately records my words and actions. I personally performed the services described in the documentation, reviewed and edited the documentation which was dictated to the scribe in my presence, and it accurately records my words and actions.
[2019-01-30] MEDS ORDERED: MAG HYDROX/AL HYDROX/SIMETH SUSP 30 ML UDCUP PO PRN (13:35)
[2019-01-30] MEDS ORDERED: LEVALBUTEROL HCL NEB 1.25 MG/3 ML AMPUL NEB PRN (13:35)
[2019-01-30] MEDS ORDERED: ONDANSETRON 4 MG TAB.RAPDIS PO PRN (13:35)
[2019-01-30] MEDS ORDERED: ACETAMINOPHEN 325 MG TABLET PO PRN (13:35)
[2019-01-30] MEDS ORDERED: GUAIFENESIN SYRP 200 MG/10 ML UDC PO PRN (13:47)
[2019-01-30 13:50] LABS: APPEARANCE,URINE CLEAR; BILIRUBIN,URINE NEGATIVE (NEGATIVE); COLOR,URINE YELLOW; GLUCOSE, URINE NEGATIVE (NEGATIVE); KETONES,URINE NEGATIVE (NEGATIVE); LEUKOCYTE ESTERASE,URINE NEGATIVE (NEGATIVE); NITRITE,URINE NEGATIVE (NEGATIVE); PROTEIN,URINE NEGATIVE (NEGATIVE); URINE SPECIFIC GRAVITY 1.012; UROBILINOGEN,URINE NEGATIVE mg/dL (<2.0)
[2019-01-30] MEDS ORDERED: DEXTROSE 40% GEL 15 GM TUBE PO PRN ×2 (14:09)
[2019-01-30] MEDS ORDERED: DEXTROSE 50%-WATER 25 GM/50 ML DISP.SYRIN IV PRN ×2 (14:09)
[2019-01-30] MEDS ORDERED: GLUCAGON,HUMAN RECOMB 1 MG INJ IM PRN (14:09)
--- NOTE | 2019-01-30 14:11 | PDOC H&P ---
History of Present Illness Admission Date/PCP: 01/30/19 12:58 JENNIFER MEYER Patient complains of: Wheezing and shortness of breath History of Present Illness: ADDIE STEWART is a 58 year old female who has a history of asthma with COPD as well as tachycardia, diabetes and hypertension. She presented to the emergency department yesterday with difficulty breathing. She was given multiple nebulizer treatments and discharged home. This morning she was more short of breath. She did not respond to multiple nebulizer treatments and return to the emergency department. She feels that it was being outside in the heat that triggered the attack. She does not report any productive cough. She has not had chills or fever. She occasionally feels hot and then cold but that is her baseline. She is somewhat hypertensive and tachycardic but this is likely due to the albuterol. She does have a history of tachycardia and hypertension and therefore we will need to monitor her symptoms. She was given magnesium, nebulizer treatments, steroids and oxygen in the emergency department and referred to the hospital service for admission. She did not have a significant white count and her chest x-ray was unremarkable. Past Medical History Cardiac Medical History: Reports: Hypertension Denies: Atrial Fibrillation, Coronary Artery Disease, DVT, Pulmonary Embolism Pulmonary Medical History: Reports: Asthma, Bronchitis, Chronic Obstructive Pulmonary Disease (COPD), Pneumonia, Respiratory Failure Denies: Intubation Neurological Medical History: Denies: Seizures Endocrine Medical History: Reports: Diabetes Mellitus Type 2 Denies: Diabetes Mellitus Type 1, Hyperthyroidism, Hypothyroidism GI Medical History: Reports: Gastroesophageal Reflux Disease Denies: Cirrhosis, Hepatitis Musculoskeltal Medical History: Reports: Arthritis Denies: Gout Skin Medical History: Denies: Eczema, Psoriasis Psychiatric Medical History: Denies: Depression Hematology: Reports: Anemia Denies: Bleeding Tendencies Social History Information Source: Patient Lives with: Family Smoking Status: Former Smoker Frequency of Alcohol Use: None Hx Recreational Drug Use: No Drugs: None Hx Prescription Drug Abuse: No - Advance Directive Resuscitation Status: Full Code Surrogate healthcare decision maker:: Her is the designated decision maker Family History Family History: COPD, DM, Hypertension Parental Family History Reviewed: Yes Children Family History Reviewed: Yes Sibling(s) Family History Reviewed.: Yes Medication/Allergy Allergies/Adverse Reactions: benzonatate [From Tessalon Perles] Allergy (Verified 01/30/19 09:25) RCING HEARTBEART NSAIDS (Non-Steroidal Anti-Inflamma Allergy (Verified 01/30/19 09:25) RACING HEARTBEAT Review of Systems Constitutional: PRESENT: as per HPI. ABSENT: fever(s), headache(s), night sweats Eyes: ABSENT: visual disturbances Ears: ABSENT: hearing changes Nose, Mouth, and Throat: ABSENT: headache(s), mouth pain, sore throat Cardiovascular: PRESENT: other - Tachycardia. ABSENT: chest pain, edema Gastrointestinal: PRESENT: diarrhea - Had loose stool yesterday. ABSENT: abdominal pain, constipation, heartburn, nausea, vomiting Genitourinary: ABSENT: dysuria, hematuria Musculoskeletal: PRESENT: other - Osteoarthritis with hands and right knee affected. ABSENT: back pain Integumentary: ABSENT: erythema, pruritus, rash Neurological: ABSENT: abnormal movements, abnormal speech, confusion, frequent falls, memory loss, tremor(s), vertigo Psychiatric: ABSENT: anxiety, depression, hallucinations Endocrine: ABSENT: cold intolerance, heat intolerance, polydipsia, polyphagia, polyuria Hematologic/Lymphatic: ABSENT: easy bleeding, easy bruising, lymphadenopathy Physical Exam Vital Signs: Temp Pulse Resp BP Pulse Ox 97.8 F 119 H 18 146/84 H 98 01/30/19 13:00 01/30/19 09:29 01/30/19 13:01 01/30/19 13:00 01/30/19 13:01 Intake & Output 01/29/19 01/30/19 01/31/19 06:59 06:59 06:59 Intake Total 100 Balance 100 Weight 71 kg General appearance: PRESENT: cooperative, mild distress - Mild to moderate distress, well-developed Head exam: PRESENT: atraumatic, normocephalic Eye exam: PRESENT: EOMI, other - 30 sclera. ABSENT: scleral icterus Ear exam: PRESENT: normal external ear exam Mouth exam: PRESENT: dry mucosa, neck supple, tongue midline Neck exam: ABSENT: carotid bruit, JVD, lymphadenopathy Respiratory exam: PRESENT: prolonged expiratory phas, symmetrical, tachypnea, wheezes - Scattered expiratory wheezes. ABSENT: rales, rhonchi Cardiovascular exam: PRESENT: +S1, +S2, tachycardia Pulses: PRESENT: normal radial pulses, normal dorsalis pedis pul GI/Abdominal exam: PRESENT: normal bowel sounds, soft. ABSENT: distended, tenderness Rectal exam: PRESENT: deferred Gentrourinary exam: ABSENT: indwelling catheter Extremities exam: ABSENT: calf tenderness, pedal edema Musculoskeletal exam: PRESENT: ambulatory, normal inspection Neurological exam: PRESENT: alert, awake, oriented to person, oriented to place, oriented to time, oriented to situation, CN II-XII grossly intact. ABSENT: motor sensory deficit Psychiatric exam: PRESENT: appropriate affect, normal mood. ABSENT: agitated, anxious Focused psych exam: ABSENT: delusional, restlessness Results Laboratory Results: 01/30/19 09:45 01/30/19 09:45 01/30/19 01/30/19 01/30/19 09:45 09:45 13:30 WBC 11.7 H RBC 4.63 Hgb 12.1 Hct 36.2 MCV 78 L MCH 26.0 L MCHC 33.4 RDW 14.4 H Plt Count 494 H Seg Neutrophils % Not Reportable Lymphocytes % Not Reportable Monocytes % Not Reportable Eosinophils % Not Reportable Basophils % Not Reportable Absolute Neutrophils Not Reportable Absolute Lymphocytes Not Reportable Absolute Monocytes Not Reportable Absolute Eosinophils Not Reportable Absolute Basophils Not Reportable Sodium 145.3 H Potassium 3.9 Chloride 107 Carbon Dioxide 29 Anion Gap 9 BUN 13 Creatinine 0.59 Est GFR ( Amer) > 60 Est GFR (Non-Af Amer) > 60 Glucose 162 H Calcium 10.0 Total Bilirubin 0.3 AST 20 ALT 21 Alkaline Phosphatase 91 Total Protein 7.3 Albumin 4.4 Urine Color YELLOW Urine Appearance CLEAR Urine pH 5.0 Ur Specific [place] 1.012 Urine Protein NEGATIVE Urine Glucose (UA) NEGATIVE Urine Ketones NEGATIVE Urine Blood NEGATIVE Urine Nitrite NEGATIVE Ur Leukocyte Esterase NEGATIVE Urine WBC (Auto) 0 01/30/19 01/30/19 09:45 09:45 Creatine Kinase 44 CK-MB (CK-2) 0.47 Troponin I < 0.012 Impressions: Chest X-Ray 01/30/19 10:48 IMPRESSION: NO ACUTE RADIOGRAPHIC FINDING IN THE CHEST. Assessment and Plan - Diagnosis (1) Acute exacerbation of chronic obstructive pulmonary disease (COPD) Is this a current diagnosis for this admission?: Yes Plan: 01/30/2019-the patient was given magnesium, steroids, nebulizer treatments and oxygen in the emergency department. We will continue Solu-Medrol 60 mg every 8 hours and utilize Xopenex scheduled every 4 hours. She states that ipratropium does not help her. We will also give Pulmicort every 12 hours. I do not believe antibiotics are appropriate at this time. She will receive guaifenesin 600 mg twice daily and as needed. (2) Exacerbation of asthma Qualifiers: Asthma severity: moderate Asthma persistence: unspecified Qualified Code(s): J45.901 - Unspecified asthma with (acute) exacerbation Is this a current diagnosis for this admission?: Yes Plan: 01/30/2019-steroids and nebulizers as above. Supplement oxygen to keep back to saturation greater than 90%. We will continue her Singulair 10 mg at bedtime. (3) Tachycardia Is this a current diagnosis for this admission?: Yes Plan: 01/30/2019-for her tachycardia (with hypertension) she will be on diltiazem 240 mg twice daily as well as Coreg 3.125 mg twice daily. We will monitor her on telemetry and adjust medications if needed based on vital signs. If her hypertension does not resolve then consider IONA inhibitor especially with underlying diabetes mellitus. (4) Diabetes mellitus type 2 in nonobese Is this a current diagnosis for this admission?: Yes Plan: 01/30/2019-we will continue the patient's metformin. Will also start sliding scale and Accu-Cheks as she will be on steroids and I expect her glucose to increase. (5) Hypertension Qualifiers: Hypertension type: essential hypertension Qualified Code(s): I10 - Essential (primary) hypertension Is this a current diagnosis for this admission?: Yes Plan: 01/30/2019-as noted above we will continue the diltiazem and Coreg. Consider IONA inhibitor if additional medications required for control. - Time Time Spent with patient: 35 or more minutes Medications reviewed and adjusted accordingly: Yes Anticipated discharge: Home - Inpatient Certification Based on my medical assessment, after consideration of the patient's comorbidities, presenting symptoms, or acuity I expect that the services needed warrant INPATIENT care.: Yes I certify that my determination is in accordance with my understanding of Medicare's requirements for reasonable and necessary INPATIENT services [42 CFR 412.3e].: Yes Medical Necessity: Need Close Monitoring Due to Risk of Patient Decompensation, Need For Continuous Telemetry Monitoring Post Hospital Care: D/C Consumer Affairs Manager Documentation
--- NOTE | 2019-01-30 14:15 | ADVANCED CARE ---
- Diagnosis (1) Acute exacerbation of chronic obstructive pulmonary disease (COPD) Diagnosis Current: Yes (2) Exacerbation of asthma Diagnosis Current: Yes (3) Tachycardia Diagnosis Current: Yes (4) Diabetes mellitus type 2 in nonobese Diagnosis Current: Yes (5) Hypertension Diagnosis Current: Yes Attendance: The patient as well as I believe her daughter at the bedside. Resuscitation Status: Full Code Discussion: The patient does not have a healthcare proxy in place. I explained that there is some [place] healthcare proxy as well as DNR documents in the admissions packet. I encouraged her to review the documents. She remembers receiving the documents when she was in the hospital in. She will be able to delineate specific lines of therapy in the event that her health care fails and she is not able to make decisions. Patient's may wish not to be ventilated for a long period of time, not have a tracheostomy or feeding tube. Patient's may also indicate preferences for not wanting to be in a residential long-term. Care Planning Goals: To establish long-term care plans Document(s) Completed: None completed. Patient is aware of blank documentation in the admissions packet. Time Spent: 20 minutes
[2019-01-30] MEDS: METHYLPREDNISOLONE INJ 125 MG/2 ML SDV IV SCH ×2 (14:23→21:36)
--- NOTE | 2019-01-30 16:06 | EKG REPORT ---
SEVERITY:- OTHERWISE NORMAL ECG - SINUS TACHYCARDIA : Confirmed by: Raman Hernandez MD 30-Jan-2019 16:04:57
[2019-01-30] MEDS: LEVALBUTEROL HCL NEB 1.25 MG/3 ML AMPUL NEB SCH ×3 (16:23→23:16)
[2019-01-30] MEDS: INSULIN LISPRO 100 UNIT/ML 3 ML VIAL SUBCUT SCH ×2 (16:47→21:33)
[2019-01-30] MEDS: METFORMIN HCL 500 MG TABLET PO SCH (16:47)
[2019-01-30] MEDS: BUDESONIDE NEB 0.5 MG/2 ML AMPUL NEB SCH (20:59)
[2019-01-30] MEDS: GUAIFENESIN 600 MG TABLET.SA PO SCH (21:32)
[2019-01-30] MEDS: FAMOTIDINE 20 MG TABLET PO SCH (21:32)
[2019-01-30] MEDS: CARVEDILOL 3.125 MG TABLET PO SCH (21:32)
[2019-01-30] MEDS: DILTIAZEM HCL 240 MG CAPSULE.CR PO SCH (21:32)
[2019-01-30] MEDS ORDERED: INSULIN GLARGINE,HUM.REC.ANLOG 1,000 UNIT/10 ML VIAL (PYX) SUBCUT ONE (22:00)
[2019-01-31] MEDS: LEVALBUTEROL HCL NEB 1.25 MG/3 ML AMPUL NEB SCH ×5 (04:41→21:08)
[2019-01-31 05:03] LABS: HEMATOCRIT 31.9 % (36.0-47.0); HEMOGLOBIN 10.4 g/dL (12.0-15.5); MEAN CORPUSCULAR HEMOGLOBIN 25.8 pg (27.0-33.4); MEAN CORPUSCULAR HGB CONC 32.8 g/dL (32.0-36.0); MEAN CORPUSCULAR VOLUME 79 fl (80-97); PLATELET COUNT 414 10^3/uL (150-450); RED BLOOD COUNT 4.06 10^6/uL (3.72-5.28); RED CELL DISTRIBUTION WIDTH 14.3 % (11.5-14.0); WHITE BLOOD COUNT 11.1 10^3/uL (4.0-10.5)
[2019-01-31 05:21] LABS: ABSOLUTE LYMPHOCYTES# (MANUAL) 1.1 10^3/uL (0.5-4.7); ABSOLUTE MONOCYTES # (MANUAL) 0.2 10^3/uL (0.1-1.4); BAND NEUTROPHILS % (MANUAL) 4 % (3-5); BASOPHILS % (MANUAL) 1 % (0-2); EOSINOPHILS % (MANUAL) 0 % (0-6); LYMPHOCYTES % (MANUAL) 10 % (13-45); METAMYELOCYTES % (MANUAL) 2 % (0); MONOCYTES % (MANUAL) 2 % (3-13); PLATELET COMMENT ADEQUATE; SEGMENTED NEUTROPHILS % (MAN) 81 % (42-78); TOTAL CELLS COUNTED 100; TOXIC VACUOLATION PRESENT
[2019-01-31 05:22] LABS: HYPOCHROMASIA SLIGHT
[2019-01-31 05:23] LABS: TARGET CELLS SLIGHT
[2019-01-31 05:26] LABS: ANION GAP 10 (5-19); BLOOD UREA NITROGEN 11 mg/dL (7-20); CALCIUM 9.1 mg/dL (8.4-10.2); CARBON DIOXIDE 25 mmol/L (22-30); CHLORIDE 106 mmol/L (98-107); GLUCOSE 192 mg/dL (75-110); POTASSIUM 4.2 mmol/L (3.6-5.0)
[2019-01-31] MEDS: METHYLPREDNISOLONE INJ 125 MG/2 ML SDV IV SCH ×3 (06:34→21:54)
--- NOTE | 2019-01-31 06:35 | EKG REPORT ---
SEVERITY:- NORMAL ECG - SINUS RHYTHM : Confirmed by: Raman Hernandez MD 31-Jan-2019 06:35:02
[2019-01-31 06:47] LABS: ARTERIAL BLOOD HCO3 26.6 mmol/L (20-24); ARTERIAL BLOOD O2 SATURATION 97.5 % (94-98); ARTERIAL BLOOD PCO2 46.4 mmHg (35-45); ARTERIAL BLOOD PH 7.38 (7.35-7.45); ARTERIAL BLOOD PO2 101.3 mmHg (80-100)
[2019-01-31 06:49] LABS: ARTERIAL BLOOD FIO2 28%
[2019-01-31] MEDS: METFORMIN HCL 500 MG TABLET PO SCH ×2 (07:40→16:34)
[2019-01-31] MEDS: INSULIN LISPRO 100 UNIT/ML 3 ML VIAL SUBCUT SCH ×4 (07:41→21:57)
[2019-01-31] MEDS: BUDESONIDE NEB 0.5 MG/2 ML AMPUL NEB SCH ×2 (08:06→21:08)
[2019-01-31] MEDS: GUAIFENESIN 600 MG TABLET.SA PO SCH ×2 (09:23→21:55)
[2019-01-31] MEDS: CARVEDILOL 3.125 MG TABLET PO SCH ×2 (09:23→21:55)
[2019-01-31] MEDS: DILTIAZEM HCL 240 MG CAPSULE.CR PO SCH ×2 (09:23→21:56)
[2019-01-31] MEDS: FAMOTIDINE 20 MG TABLET PO SCH ×2 (09:24→21:56)
[2019-01-31] MEDS: ENOXAPARIN SODIUM INJ 40 MG/0.4 ML DISP.SYRIN SUBCUT SCH (09:33)
--- NOTE | 2019-01-31 11:07 | RADIOLOGY REPORT (SQ) ---
EXAM DESCRIPTION: CHEST SINGLE VIEW COMPLETED DATE/TIME: 01/31/2019 9:30 am REASON FOR STUDY: Respiratory failure COMPARISON: 01/30/2019 NUMBER OF VIEWS: One view. TECHNIQUE: Single frontal radiographic view of the chest acquired. LIMITATIONS: None. FINDINGS: LUNGS AND PLEURA: There is blunting of both costophrenic angles new from prior study. Thi s consistent with small effusions. No pneumothorax. No consolidation. MEDIASTINUM AND HILAR STRUCTURES: No masses. Contour normal. HEART AND VASCULAR STRUCTURES: Heart normal in size. Normal vasculature. BONES: No acute findings. HARDWARE: None in the chest. OTHER: No other significant finding. IMPRESSION: Small pleural effusions. No other significant findings. TECHNICAL DOCUMENTATION: JOB ID: [id number] [employer]- All Rights Reserved Reading location - IP/workstation name: [email or web address]
[2019-01-31] MEDS ORDERED: HYDROCODONE BIT/HOMATROPINE SYRUP 5 ML UDCUP PO PRN (14:20)
[2019-01-31] MEDS ORDERED: HYDROCODONE BIT/HOMATROPINE 5-1.5 MG TABLET PO PRN (14:47)
[2019-01-31] MEDS ORDERED: HYDROCODONE BIT/HOMATROPINE 5-1.5 MG TABLET PO ONE (15:00)
[2019-01-31] MEDS: IPRATROPIUM BROMIDE 0.02% NEB 0.5 MG/2.5 ML AMPUL NEB SCH ×2 (16:34→21:08)
--- NOTE | 2019-01-31 21:23 | PDOC PROGRESS REPORT ---
Subjective Progress Note for:: 01/31/19 Subjective:: Still quite wheezy and having difficulty breathing. She sounds quite tight. She is still having intractable coughing. Reason For Visit: EXACERBATION OF ASTHMA/COPD,TACHYCARDIA, Physical Exam Vital Signs: Temp Pulse Resp BP Pulse Ox 98.2 F 89 20 118/59 L 100 01/31/19 11:41 01/31/19 11:41 01/31/19 11:41 01/31/19 11:41 01/31/19 11:41 Intake & Output 01/30/19 01/31/19 02/01/19 06:59 06:59 06:59 Intake Total 340 Balance 340 Weight 71 kg General appearance: PRESENT: cooperative, mild distress, well-developed Head exam: PRESENT: atraumatic, normocephalic Ear exam: PRESENT: normal external ear exam Respiratory exam: PRESENT: symmetrical, tachypnea, wheezes - Bilaterally. ABSENT: rales, rhonchi, stridor Cardiovascular exam: PRESENT: +S1, +S2, tachycardia GI/Abdominal exam: PRESENT: normal bowel sounds, soft. ABSENT: guarding, tenderness Extremities exam: ABSENT: joint swelling, pedal edema Musculoskeletal exam: PRESENT: normal inspection Neurological exam: PRESENT: alert, awake, oriented to person, oriented to place, oriented to time, oriented to situation, CN II-XII grossly intact Psychiatric exam: ABSENT: agitated, anxious Focused psych exam: ABSENT: delusional, restlessness Results Laboratory Results: 01/31/19 04:12 01/31/19 04:12 01/31/19 01/31/19 01/31/19 04:12 04:12 06:20 WBC 11.1 H RBC 4.06 Hgb 10.4 L Hct 31.9 L MCV 79 L MCH 25.8 L MCHC 32.8 RDW 14.3 H Plt Count 414 Seg Neutrophils % Not Reportable Lymphocytes % Not Reportable Monocytes % Not Reportable Eosinophils % Not Reportable Basophils % Not Reportable Absolute Neutrophils Not Reportable Absolute Lymphocytes Not Reportable Absolute Monocytes Not Reportable Absolute Eosinophils Not Reportable Absolute Basophils Not Reportable Carbonic Acid 1.40 H HCO3/H2CO3 Ratio 19:1 ABG pH 7.38 ABG pCO2 46.4 H ABG pO2 101.3 H ABG HCO3 26.6 H ABG O2 Saturation 97.5 ABG Base Excess 1.0 FiO2 28% Sodium 141.2 Potassium 4.2 Chloride 106 Carbon Dioxide 25 Anion Gap 10 BUN 11 Creatinine 0.52 Est GFR ( Amer) > 60 Est GFR (Non-Af Amer) > 60 Glucose 192 H Calcium 9.1 Magnesium 1.9 01/30/19 01/30/19 09:45 09:45 Creatine Kinase 44 CK-MB (CK-2) 0.47 Troponin I < 0.012 Impressions: Chest X-Ray 01/31/19 06:00 IMPRESSION: Small pleural effusions. No other significant findings. Assessment and Plan - Diagnosis (1) Acute exacerbation of chronic obstructive pulmonary disease (COPD) Is this a current diagnosis for this admission?: Yes Plan: 01/30/2019-the patient was given magnesium, steroids, nebulizer treatments and oxygen in the emergency department. We will continue Solu-Medrol 60 mg every 8 hours and utilize Xopenex scheduled every 4 hours. She states that ipratropium does not help her. We will also give Pulmicort every 12 hours. I do not believe antibiotics are appropriate at this time. She will receive guaifenesin 600 mg twice daily and as needed. 01/31/2019-despite aggressive therapy she still sounds tight. We will continue the every 4 hour nebulizer treatments as well as IV steroids. I have also added Singulair 10 mg daily. Because of the congested cough I have taken the liberty of starting the patient on a azithromycin for possible COPD related bronchitis. (2) Exacerbation of asthma Qualifiers: Asthma severity: moderate Asthma persistence: unspecified Qualified Code(s): J45.901 - Unspecified asthma with (acute) exacerbation Is this a current diagnosis for this admission?: Yes Plan: 01/30/2019-steroids and nebulizers as above. Supplement oxygen to keep back to saturation greater than 90%. We will continue her Singulair 10 mg at bedtime. 01/31/2019-treatment regimen as above. I have added cough suppressant with codeine. (3) Tachycardia Is this a current diagnosis for this admission?: Yes Plan: 01/30/2019-for her tachycardia (with hypertension) she will be on diltiazem 240 mg twice daily as well as Coreg 3.125 mg twice daily. We will monitor her on telemetry and adjust medications if needed based on vital signs. If her hypertension does not resolve then consider IONA inhibitor especially with underlying diabetes mellitus. 01/31/2019-we have resumed the patient's diltiazem and carvedilol. Blood pressure and pulse are improved. Continue to monitor on telemetry. (4) Diabetes mellitus type 2 in nonobese Is this a current diagnosis for this admission?: Yes Plan: 01/30/2019-we will continue the patient's metformin. Will also start sliding scale and Accu-Cheks as she will be on steroids and I expect her glucose to increase. 01/31/2019-continue metformin as well as Accu-Cheks at meals and bedtime. She is on sliding scale coverage. With steroids I expect higher glucose readings in the sliding scale should cover these. (5) Hypertension Qualifiers: Hypertension type: essential hypertension Qualified Code(s): I10 - Essential (primary) hypertension Is this a current diagnosis for this admission?: Yes Plan: 01/30/2019-as noted above we will continue the diltiazem and Coreg. Consider IONA inhibitor if additional medications required for control. 01/31/2019-continue the current regimen. Blood pressures seem to be responding well. - Time Time Spent with patient: 15-24 minutes Medications reviewed and adjusted accordingly: Yes Anticipated discharge: Home Within: within 72 hours
[2019-01-31] MEDS: MONTELUKAST SODIUM 10 MG TABLET PO SCH (21:55)
[2019-01-31] MEDS: FLUTICASONE NASAL SPRAY 50 MCG/SPRY 120 SPRAY/16 GM NASL SCH (21:56)
[2019-01-31] MEDS ORDERED: INSULIN GLARGINE,HUM.REC.ANLOG 1,000 UNIT/10 ML VIAL SUBCUT SCH (22:00)
[2019-02-01] MEDS: LEVALBUTEROL HCL NEB 1.25 MG/3 ML AMPUL NEB SCH ×7 (00:34→23:58)
[2019-02-01] MEDS: IPRATROPIUM BROMIDE 0.02% NEB 0.5 MG/2.5 ML AMPUL NEB SCH ×7 (00:34→23:58)
[2019-02-01] MEDS: AZITHROMYCIN 500 MG in DEXTROSE 5%-WATER 250 ML IV SCH ×2 (01:09→21:45)
[2019-02-01] MEDS: METHYLPREDNISOLONE INJ 125 MG/2 ML SDV IV SCH ×2 (06:18→17:24)
[2019-02-01] MEDS: METFORMIN HCL 500 MG TABLET PO SCH (07:44)
[2019-02-01] MEDS: INSULIN LISPRO 100 UNIT/ML 3 ML VIAL SUBCUT SCH ×4 (07:44→21:51)
[2019-02-01] MEDS: BUDESONIDE NEB 0.5 MG/2 ML AMPUL NEB SCH ×2 (08:09→20:31)
[2019-02-01] MEDS: CARVEDILOL 3.125 MG TABLET PO SCH ×2 (09:43→21:41)
[2019-02-01] MEDS: FLUTICASONE/VILANTEROL 200-25 MCG/DOSE IH SCH (09:44)
[2019-02-01] MEDS: GUAIFENESIN 600 MG TABLET.SA PO SCH ×2 (09:44→21:41)
[2019-02-01] MEDS: FAMOTIDINE 20 MG TABLET PO SCH ×2 (09:44→21:42)
[2019-02-01] MEDS: DILTIAZEM HCL 240 MG CAPSULE.CR PO SCH ×2 (09:44→21:40)
[2019-02-01] MEDS: DOCUSATE SODIUM 100 MG CAPSULE PO SCH (09:44)
[2019-02-01] MEDS: FLUTICASONE NASAL SPRAY 50 MCG/SPRY 120 SPRAY/16 GM NASL SCH ×2 (09:45→21:52)
[2019-02-01] MEDS: ENOXAPARIN SODIUM INJ 40 MG/0.4 ML DISP.SYRIN SUBCUT SCH (09:45)
--- NOTE | 2019-02-01 10:36 | PDOC PROGRESS REPORT ---
Subjective Progress Note for:: 02/01/19 Subjective:: 58 year old female who has a history of asthma with COPD as well as tachycardia, diabetes and hypertension. She presented to the emergency department yesterday with difficulty breathing. She was given multiple nebulizer treatments and discharged home. This morning she was more short of breath. She did not respond to multiple nebulizer treatments and return to the emergency department. She feels that it was being outside in the heat that triggered the attack. She does not report any productive cough. She has not had chills or fever. She occasionally feels hot and then cold but that is her baseline. She is somewhat hypertensive and tachycardic but this is likely due to the albuterol. She does have a history of tachycardia and hypertension and therefore we will need to monitor her symptoms. She was given magnesium, nebulizer treatments, steroids a nd oxygen in the emergency department and referred to the hospital service for admission. She did not have a significant white count and her chest x-ray was unremarkable. [id number]-old female with history of asthma COPD admitted for asthma exacerbation as per the patient she is doing better compared to yesterday. Pulse oxes 100% on 2 L today. Presently on scheduled as needed nebulizations and on IV methylprednisone. Reason For Visit: EXACERBATION OF ASTHMA/COPD,TACHYCARDIA, Physical Exam Vital Signs: Temp Pulse Resp BP Pulse Ox 97.7 F 77 16 143/71 H 100 02/01/19 07:35 02/01/19 08:11 02/01/19 08:11 02/01/19 07:35 02/01/19 08:11 Intake & Output 01/31/19 02/01/19 02/02/19 06:59 06:59 06:59 Intake Total 340 1430 Balance 340 1430 Weight 71 kg 71.3 kg General appearance: PRESENT: no acute distress Head exam: PRESENT: atraumatic Eye exam: PRESENT: PERRLA Ear exam: PRESENT: drainage Mouth exam: PRESENT: neck supple Neck exam: ABSENT: carotid bruit, JVD, lymphadenopathy, thyromegaly Respiratory exam: PRESENT: decreased breath sounds Cardiovascular exam: PRESENT: tachycardia GI/Abdominal exam: PRESENT: normal bowel sounds, soft. ABSENT: distended, guarding, mass, organolmegaly, rebound, tenderness Rectal exam: PRESENT: deferred Extremities exam: PRESENT: full ROM. ABSENT: calf tenderness, clubbing, pedal edema Neurological exam: PRESENT: alert, awake, oriented to person, oriented to place, oriented to time, oriented to situation, CN II-XII grossly intact. ABSENT: motor sensory deficit Psychiatric exam: PRESENT: appropriate affect, normal mood. ABSENT: homicidal ideation, suicidal ideation Results Laboratory Results: 01/31/19 04:12 01/31/19 04:12 01/31/19 00:42 Sputum Gram Stain - Final 01/31/19 00:42 Sputum Sputum Culture - Final 01/30/19 01/30/19 09:45 09:45 Creatine Kinase 44 CK-MB (CK-2) 0.47 Troponin I < 0.012 Impressions: Chest X-Ray 01/31/19 06:00 IMPRESSION: Small pleural effusions. No other significant findings. Assessment and Plan - Diagnosis (1) Diabetes mellitus type 2 in nonobese Is this a current diagnosis for this admission?: Yes Plan: 01/30/2019-we will continue the patient's metformin. Will also start sliding scale and Accu-Cheks as she will be on steroids and I expect her glucose to increase. 01/31/2019-continue metformin as well as Accu-Cheks at meals and bedtime. She is on sliding scale coverage. With steroids I expect higher glucose readings in the sliding scale should cover these. 02/01/2019-patient has history of type 2 diabetes mellitus latest blood sugar is 21. Presently on metformin thousand milligrams p.o. twice daily, Lantus 10 units at night and insulin sliding scale. Plan is to change the Lantus to 10 units twice a day and discontinue metformin while she was in the hospital. Diet exercise weight loss lifestyle modifications are discussed with the patient and dietary consult was requested. (2) Acute exacerbation of chronic obstructive pulmonary disease (COPD) Is this a current diagnosis for this admission?: Yes Plan: 01/30/2019-the patient was given magnesium, steroids, nebulizer treatments and oxygen in the emergency department. We will continue Solu-Medrol 60 mg every 8 hours and utilize Xopenex scheduled every 4 hours. She states that ipratropium does not help her. We will also give Pulmicort every 12 hours. I do not believe antibiotics are appropriate at this time. She will receive guaifenesin 600 mg twice daily and as needed. 01/31/2019-despite aggressive therapy she still sounds tight. We will continue the every 4 hour nebulizer treatments as well as IV steroids. I have also added Singulair 10 mg daily. Because of the congested cough I have taken the liberty of starting the patient on a azithromycin for possible COPD related bronchitis. 02/01/2019-patient is on IV methylprednisone, scheduled and as needed nebulizations and also Singulair as per the patient she is feeling much better today compared to yesterday. Plan is to decrease the methylprednisone to every 12 hours. (3) Exacerbation of asthma Qualifiers: Asthma severity: moderate Asthma persistence: unspecified Qualified Code(s): J45.901 - Unspecified asthma with (acute) exacerbation Is this a current diagnosis for this admission?: Yes Plan: 01/30/2019-steroids and nebulizers as above. Supplement oxygen to keep back to saturation greater than 90%. We will continue her Singulair 10 mg at bedtime. 01/31/2019-treatment regimen as above. I have added cough suppressant with codeine. 02/01/2019-patient admitted with acute exacerbation of asthma symptoms are improving. - Time Time Spent with patient: 25-34 minutes Anticipated discharge: Home
[2019-02-01] MEDS: INSULIN GLARGINE,HUM.REC.ANLOG 1,000 UNIT/10 ML VIAL SUBCUT SCH ×2 (11:22→21:41)
[2019-02-01] MEDS: MONTELUKAST SODIUM 10 MG TABLET PO SCH (21:42)
[2019-02-02] MEDS: IPRATROPIUM BROMIDE 0.02% NEB 0.5 MG/2.5 ML AMPUL NEB SCH ×6 (03:55→23:32)
[2019-02-02] MEDS: LEVALBUTEROL HCL NEB 1.25 MG/3 ML AMPUL NEB SCH ×6 (03:55→23:34)
[2019-02-02] MEDS: METHYLPREDNISOLONE INJ 125 MG/2 ML SDV IV SCH (05:14)
[2019-02-02] MEDS: INSULIN LISPRO 100 UNIT/ML 3 ML VIAL SUBCUT SCH ×4 (07:31→22:42)
[2019-02-02 07:49] LABS: HEMATOCRIT 32.2 % (36.0-47.0); HEMOGLOBIN 10.8 g/dL (12.0-15.5); MEAN CORPUSCULAR HGB CONC 33.6 g/dL (32.0-36.0); MEAN CORPUSCULAR VOLUME 78 fl (80-97); PLATELET COUNT 429 10^3/uL (150-450); RED BLOOD COUNT 4.16 10^6/uL (3.72-5.28); RED CELL DISTRIBUTION WIDTH 14.5 % (11.5-14.0); WHITE BLOOD COUNT 15.8 10^3/uL (4.0-10.5)
[2019-02-02 08:15] LABS: ALANINE AMINOTRANSFERASE 36 U/L (9-52); ALBUMIN 3.7 g/dL (3.5-5.0); ALKALINE PHOSPHATASE 79 U/L (38-126); ANION GAP 7 (5-19); ASPARTATE AMINO TRANSFERASE 19 U/L (14-36); BILIRUBIN,DIRECT 0.3 mg/dL (0.0-0.4); BILIRUBIN,TOTAL 0.3 mg/dL (0.2-1.3); BLOOD UREA NITROGEN 18 mg/dL (7-20); CALCIUM 9.2 mg/dL (8.4-10.2); CARBON DIOXIDE 31 mmol/L (22-30); CHLORIDE 104 mmol/L (98-107); GLUCOSE 193 mg/dL (75-110); POTASSIUM 3.5 mmol/L (3.6-5.0); TOTAL PROTEIN 6.1 g/dL (6.3-8.2)
[2019-02-02 08:17] LABS: ABSOLUTE LYMPHOCYTES# (MANUAL) 1.7 10^3/uL (0.5-4.7); ABSOLUTE MONOCYTES # (MANUAL) 0.8 10^3/uL (0.1-1.4); BAND NEUTROPHILS % (MANUAL) 5 % (3-5); BASOPHILS % (MANUAL) 0 % (0-2); EOSINOPHILS % (MANUAL) 0 % (0-6); LYMPHOCYTES % (MANUAL) 11 % (13-45); METAMYELOCYTES % (MANUAL) 2 % (0); MONOCYTES % (MANUAL) 5 % (3-13); SEGMENTED NEUTROPHILS % (MAN) 77 % (42-78); TOTAL CELLS COUNTED 100
[2019-02-02 08:18] LABS: ANISOCYTOSIS SLIGHT; PLATELET COMMENT ADEQUATE; POIKILOCYTOSIS SLIGHT; TEAR DROP CELLS SLIGHT
[2019-02-02] MEDS: BUDESONIDE NEB 0.5 MG/2 ML AMPUL NEB SCH ×2 (08:31→20:22)
--- NOTE | 2019-02-02 09:19 | PDOC PROGRESS REPORT ---
Subjective Progress Note for:: 02/02/19 Subjective:: 58 year old female who has a history of asthma with COPD as well as tachycardia, diabetes and hypertension. She presented to the emergency department yesterday with difficulty breathing. She was given multiple nebulizer treatments and discharged home. This morning she was more short of breath. She did not respond to multiple nebulizer treatments and return to the emergency department. She feels that it was being outside in the heat that triggered the attack. She does not report any productive cough. She has not had chills or fever. She occasionally feels hot and then cold but that is her baseline. She is somewhat hypertensive and tachycardic but this is likely due to the albuterol. She does have a history of tachycardia and hypertension and therefore we will need to monitor her symptoms. She was given magnesium, nebulizer treatments, steroids a nd oxygen in the emergency department and referred to the hospital service for admission. She did not have a significant white count and her chest x-ray was unremarkable. [id number]-old female with history of asthma COPD admitted for asthma exacerbation as per the patient she is doing better compared to yesterday. Pulse oxes 100% on 2 L today. Presently on scheduled as needed nebulizations and on IV methylprednisone. 08/05/[id number]-old female with history of asthma/COPD admitted for asthma exacerbation. Pulse ox is 94 to 96% on room air. Patient is doing well with no acute events in the last 24 hours. Patient is presently on IV Solu-Medrol 60 mg every 12 hours plan is to decrease the dose to once a day. She is also on azithromycin and cultures are negative so far. Reason For Visit: EXACERBATION OF ASTHMA/COPD,TACHYCARDIA, Physical Exam Vital Signs: Temp Pulse Resp BP Pulse Ox 98.2 F 84 14 129/62 H 94 02/02/19 08:24 02/02/19 08:35 02/02/19 08:35 02/02/19 08:24 02/02/19 08:46 Intake & Output 02/01/19 02/02/19 02/03/19 06:59 06:59 06:59 Intake Total 1430 1290 Balance 1430 1290 Weight 71.3 kg 71.3 kg General appearance: PRESENT: no acute distress, cooperative Head exam: PRESENT: atraumatic Eye exam: PRESENT: PERRLA Mouth exam: PRESENT: moist, tongue midline Teeth exam: PRESENT: poor dentation Neck exam: ABSENT: carotid bruit, JVD, lymphadenopathy, thyromegaly Respiratory exam: PRESENT: decreased breath sounds, other - Mild wheezing present in both lower lungs. Cardiovascular exam: PRESENT: RRR. ABSENT: diastolic murmur, rubs, systolic murmur GI/Abdominal exam: PRESENT: normal bowel sounds, soft. ABSENT: distended, guarding, mass, organolmegaly, rebound, tenderness Rectal exam: PRESENT: deferred Extremities exam: PRESENT: full ROM. ABSENT: calf tenderness, clubbing, pedal edema Neurological exam: PRESENT: alert, awake, oriented to person, oriented to place, oriented to time, oriented to situation, CN II-XII grossly intact. ABSENT: motor sensory deficit Psychiatric exam: PRESENT: appropriate affect, normal mood. ABSENT: homicidal ideation, suicidal ideation Results Laboratory Results: 02/02/19 07:09 02/02/19 07:09 02/02/19 02/02/19 07:09 07:09 WBC 15.8 H RBC 4.16 Hgb 10.8 L Hct 32.2 L MCV 78 L MCH 26.0 L MCHC 33.6 RDW 14.5 H Plt Count 429 Seg Neutrophils % Not Reportable Lymphocytes % Not Reportable Monocytes % Not Reportable Eosinophils % Not Reportable Basophils % Not Reportable Absolute Neutrophils Not Reportable Absolute Lymphocytes Not Reportable Absolute Monocytes Not Reportable Absolute Eosinophils Not Reportable Absolute Basophils Not Reportable Sodium 142.2 Potassium 3.5 L Chloride 104 Carbon Dioxide 31 H Anion Gap 7 BUN 18 Creatinine 0.55 Est GFR ( Amer) > 60 Est GFR (Non-Af Amer) > 60 Glucose 193 H Calcium 9.2 Magnesium 2.0 Total Bilirubin 0.3 AST 19 ALT 36 Alkaline Phosphatase 79 Total Protein 6.1 L Albumin 3.7 01/30/19 01/30/19 09:45 09:45 Creatine Kinase 44 CK-MB (CK-2) 0.47 Troponin I < 0.012 Impressions: Chest X-Ray 01/31/19 06:00 IMPRESSION: Small pleural effusions. No other significant findings. Assessment and Plan - Diagnosis (1) Diabetes mellitus type 2 in nonobese Is this a current diagnosis for this admission?: Yes Plan: 01/30/2019-we will continue the patient's metformin. Will also start sliding scale and Accu-Cheks as she will be on steroids and I expect her glucose to increase. 01/31/2019-continue metformin as well as Accu-Cheks at meals and bedtime. She is on sliding scale coverage. With steroids I expect higher glucose readings in th e sliding scale should cover these. 02/01/2019-patient has history of type 2 diabetes mellitus latest blood sugar is 211. Presently on metformin thousand milligrams p.o. twice daily, Lantus 10 units at night and insulin sliding scale. Plan is to change the Lantus to 10 units twice a day and discontinue metformin while she was in the hospital. Diet exercise weight loss lifestyle modifications are discussed with the patient and dietary consult was requested. 02/02/2019-patient has history of type 2 diabetes mellitus latest blood sugar is 93. To check her hemoglobin A1c and continue Lantus 10 units twice a day and insulin sliding scale. (2) Acute exacerbation of chronic obstructive pulmonary disease (COPD) Is this a current diagnosis for this admission?: Yes Plan: 01/30/2019-the patient was given magnesium, steroids, nebulizer treatments and oxygen in the emergency department. We will continue Solu-Medrol 60 mg every 8 hours and utilize Xopenex scheduled every 4 hours. She states that ipratropium does not help her. We will also give Pulmicort every 12 hours. I do not believe antibiotics are appropriate at this time. She will receive guaifenesin 600 mg twice daily and as needed. 01/31/2019-despite aggressive therapy she still sounds tight. We will continue the every 4 hour nebulizer treatments as well as IV steroids. I have also added Singulair 10 mg daily. Because of the congested cough I have taken the liberty of starting the patient on a azithromycin for possible COPD related bronchitis. 02/01/2019-patient is on IV methylprednisone, scheduled and as needed nebulizations and also Singulair as per the patient she is feeling much better today compared to yesterday. Plan is to decrease the methylprednisone to every 12 hours. 02/02/2019-patient is presently on IV Solu-Medrol 60 mg every 12 hours, scheduled as needed nebulizations and also Singulair. Plan is to decrease the dose of Solu-Medrol to 40 mg once a day. On examination mild wheezing is present in both lung bases. (3) Exacerbation of asthma Qualifiers: Asthma severity: moderate Asthma persistence: unspecified Qualified Code(s): J45.901 - Unspecified asthma with (acute) exacerbation Is this a current diagnosis for this admission?: Yes Plan: 01/30/2019-steroids and nebulizers as above. Supplement oxygen to keep back to saturation greater than 90%. We will continue her Singulair 10 mg at bedtime. 01/31/2019-treatment regimen as above. I have added cough suppressant with codeine. 02/01/2019-patient admitted with acute exacerbation of asthma symptoms are improving. 08/05/2018-patient admitted with acute exacerbation of asthma resolving. - Time Time Spent with patient: 15-24 minutes Medications reviewed and adjusted accordingly: Yes Anticipated discharge: Home
[2019-02-02] MEDS: CARVEDILOL 3.125 MG TABLET PO SCH ×2 (09:28→22:41)
[2019-02-02] MEDS: DOCUSATE SODIUM 100 MG CAPSULE PO SCH (09:28)
[2019-02-02] MEDS: FLUTICASONE/VILANTEROL 200-25 MCG/DOSE IH SCH (09:28)
[2019-02-02] MEDS: DILTIAZEM HCL 240 MG CAPSULE.CR PO SCH ×2 (09:28→22:41)
[2019-02-02] MEDS: FAMOTIDINE 20 MG TABLET PO SCH ×2 (09:28→22:41)
[2019-02-02] MEDS: GUAIFENESIN 600 MG TABLET.SA PO SCH ×2 (09:28→22:41)
[2019-02-02] MEDS: FLUTICASONE NASAL SPRAY 50 MCG/SPRY 120 SPRAY/16 GM NASL SCH ×2 (09:29→22:43)
[2019-02-02] MEDS: ENOXAPARIN SODIUM INJ 40 MG/0.4 ML DISP.SYRIN SUBCUT SCH (09:30)
[2019-02-02] MEDS: INSULIN GLARGINE,HUM.REC.ANLOG 1,000 UNIT/10 ML VIAL SUBCUT SCH ×2 (09:32→22:47)
[2019-02-02] MEDS ORDERED: POTASSIUM CHLORIDE 10 MEQ CAPSULE.ER PO ONE (09:45)
[2019-02-02] MEDS ORDERED: METHYLPREDNISOLONE INJ 125 MG/2 ML SDV IV SCH (10:00)
[2019-02-02] MEDS ORDERED: AZITHROMYCIN 250 MG TABLET PO SCH (22:00)
[2019-02-02] MEDS: MONTELUKAST SODIUM 10 MG TABLET PO SCH (22:41)
[2019-02-03] MEDS: IPRATROPIUM BROMIDE 0.02% NEB 0.5 MG/2.5 ML AMPUL NEB SCH ×2 (04:01→09:00)
[2019-02-03] MEDS: LEVALBUTEROL HCL NEB 1.25 MG/3 ML AMPUL NEB SCH ×2 (04:01→09:00)
[2019-02-03 05:45] LABS: ABSOLUTE BASOPHILS # (AUTO) 0.1 10^3/uL (0.0-0.2); ABSOLUTE LYMPHOCYTES (AUTO) 1.8 10^3/uL (0.5-4.7); ABSOLUTE MONOCYTES (AUTO) 2.2 10^3/uL (0.1-1.4); ABSOLUTE NEUT (AUTO) 11.1 10^3/uL (1.7-8.2); BASOPHILS % (AUTO) 0.5 % (0-2); EOSINOPHILS % (AUTO) 0.1 % (0-6); HEMATOCRIT 33.7 % (36.0-47.0); HEMOGLOBIN 11.4 g/dL (12.0-15.5); MEAN CORPUSCULAR HGB CONC 33.7 g/dL (32.0-36.0); MEAN CORPUSCULAR VOLUME 77 fl (80-97); MONOCYTES % (AUTO) 14.2 % (3-13); PLATELET COUNT 363 10^3/uL (150-450); RED BLOOD COUNT 4.36 10^6/uL (3.72-5.28); RED CELL DISTRIBUTION WIDTH 14.2 % (11.5-14.0); SEGMENTED NEUTROPHILS % (AUTO) 73.2 % (42-78); TOTAL CELLS COUNTED % (AUTO) 100 %; WHITE BLOOD COUNT 15.2 10^3/uL (4.0-10.5)
[2019-02-03 06:15] LABS: ALANINE AMINOTRANSFERASE 35 U/L (9-52); ALBUMIN 3.6 g/dL (3.5-5.0); ALKALINE PHOSPHATASE 75 U/L (38-126); ANION GAP 6 (5-19); ASPARTATE AMINO TRANSFERASE 20 U/L (14-36); BILIRUBIN,DIRECT 0.1 mg/dL (0.0-0.4); BILIRUBIN,TOTAL 0.3 mg/dL (0.2-1.3); BLOOD UREA NITROGEN 13 mg/dL (7-20); CARBON DIOXIDE 33 mmol/L (22-30); CHLORIDE 103 mmol/L (98-107); GLUCOSE 88 mg/dL (75-110); POTASSIUM 3.3 mmol/L (3.6-5.0); TOTAL PROTEIN 6.1 g/dL (6.3-8.2)
[2019-02-03] MEDS ORDERED: ONDANSETRON 4 MG TAB.RAPDIS PO PRN (08:30)
[2019-02-03] MEDS: BUDESONIDE NEB 0.5 MG/2 ML AMPUL NEB SCH (09:00)
[2019-02-03] MEDS: INSULIN LISPRO 100 UNIT/ML 3 ML VIAL SUBCUT SCH (09:01)
[2019-02-03] MEDS ORDERED: POTASSIUM CHLORIDE 10 MEQ CAPSULE.ER PO SCH (10:00)
[2019-02-03] MEDS ORDERED: METHYLPREDNISOLONE INJ 40 MG/1 ML SDV IV SCH (10:00)
[2019-02-03] MEDS: DOCUSATE SODIUM 100 MG CAPSULE PO SCH (10:13)
[2019-02-03] MEDS: ENOXAPARIN SODIUM INJ 40 MG/0.4 ML DISP.SYRIN SUBCUT SCH (10:14)
[2019-02-03] MEDS: CARVEDILOL 3.125 MG TABLET PO SCH (10:18)
[2019-02-03] MEDS: GUAIFENESIN 600 MG TABLET.SA PO SCH (10:18)
[2019-02-03] MEDS: FAMOTIDINE 20 MG TABLET PO SCH (10:18)
[2019-02-03] MEDS: FLUTICASONE NASAL SPRAY 50 MCG/SPRY 120 SPRAY/16 GM NASL SCH (10:19)
[2019-02-03] MEDS: FLUTICASONE/VILANTEROL 200-25 MCG/DOSE IH SCH (10:19)
[2019-02-03] MEDS: DILTIAZEM HCL 240 MG CAPSULE.CR PO SCH (10:19)
[2019-02-03] MEDS: INSULIN GLARGINE,HUM.REC.ANLOG 1,000 UNIT/10 ML VIAL SUBCUT SCH (10:33)
[2019-02-03 11:00] VITALS: BP 144/66
--- NOTE | 2019-02-03 11:54 | PDOC DISCHARGE SUMMARY ---
General - Admit/Disc Date/PCP Admission Date/Primary Care Provider: 01/30/19 12:58 BONIFACIO FLETCHERDEEDEE LIU-Luana Discharge Date: 02/03/19 - Discharge Diagnosis (1) Diabetes mellitus type 2 in nonobese Is this a current diagnosis for this admission?: Yes (2) Acute exacerbation of chronic obstructive pulmonary disease (COPD) Is this a current diagnosis for this admission?: Yes Summary: 01/30/2019-the patient was given magnesium, steroids, nebulizer treatments and oxygen in the emergency department. We will continue Solu-Medrol 60 mg every 8 hours and utilize Xopenex scheduled every 4 hours. She states that ipratropium does not help her. We will also give Pulmicort every 12 hours. I do not believe antibiotics are appropriate at this time. She will receive guaifenesin 600 mg twice daily and as needed. 02/03/2019-this 58-year-old female admitted with acute exacerbation of COPD. She is doing well. Pulse ox is 93% on room air. On examination chest bilateral entry was decreased no wheezing no crepitations. Patient states she is ready to go home today. She says she has enough medications at home given prescription for antibiotic azithromycin 5 mg p.o. daily for 1 week. (3) Exacerbation of asthma Is this a current diagnosis for this admission?: Yes Summary: 01/30/2019-the patient was given magnesium, steroids, nebulizer treatments and oxygen in the emergency department. We will continue Solu-Medrol 60 mg every 8 hours and utilize Xopenex scheduled every 4 hours. She states that ipratropium does not help her. We will also give Pulmicort every 12 hours. I do not believe antibiotics are appropriate at this time. She will receive guaifenesin 600 mg twice daily and as needed. 01/31/2019-despite aggressive therapy she still sounds tight. We will continue the every 4 hour nebulizer treatments as well as IV steroids. I have also added Singulair 10 mg daily. Because of the congested cough I have taken the liberty of starting the patient on a azithromycin for possible COPD related bronchitis. 02/01/2019-patient is on IV methylprednisone, scheduled and as needed nebulizations and also Singulair as per the patient she is feeling much better today compared to yesterday. Plan is to decrease the methylprednisone to every 12 hours. 02/02/2019-patient is presently on IV Solu-Medrol 60 mg every 12 hours, scheduled as needed nebulizations and also Singulair. Plan is to decrease the dose of Solu-Medrol to 40 mg once a day. On examination mild wheezing is present in both lung bases. 02/03/2019-patient admitted with combination of asthma and COPD exacerbation treated with IV Solu-Medrol and as needed and scheduled nebulizations. Patient is going to go home on antibiotics for 1 week as per the patient she has enough nebulizer medications at home. - Additional Information Resuscitation Status: Full Code Discharge Activity: Activity As Tolerated Prescriptions: Azithromycin [Zithromax 250 mg Tablet] 500 mg PO QHS #7 tablet Home Medications: Acetaminophen [Tylenol] 650 mg PO Q4HP PRN 01/30/19 Albuterol Sulfate [Proair HFA Inhalation Aerosol 8.5 gm MDI] 1 puff IH Q4HP PRN 01/30/19 Albuterol Sulfate [Ventolin 0.083% Neb 2.5 mg/3 mL Ampul] 1 vial NEB RTQ8HP PRN 01/30/19 Budesonide [Pulmicort Neb 0.5 mg/2 ml Ampul] 0.5 mg NEB RTQ12 01/30/19 Budesonide/Formoterol Fumarate [Symbicort HFA 160-4.5 mcg Inhaler 6 gm] 2 puff IH Q12 01/30/19 Carvedilol [Coreg 3.125 mg Tablet] 3.125 mg PO Q12 01/30/19 Diltiazem HCl [Cardizem Cd 240 mg Capsule.cr] 240 mg PO Q12 01/30/19 Docusate Sodium [Colace 100 mg Capsule] 100 mg PO DAILY 01/30/19 Ipratropium/Albuterol Sulfate [Duoneb 3 ml Ampul] 3 ml NEB RTQ6HP PRN 01/30/19 Metformin HCl [Glucophage] 1,000 mg PO BID 01/30/19 Montelukast Sodium [Singulair 10 mg Tablet] 10 mg PO QHS 01/30/19 Azithromycin [Zithromax 250 mg Tablet] 500 mg PO QHS #7 tablet 02/03/19 Carvedilol [Coreg 3.125 mg Tablet] 3.125 mg PO Q12 #0 tablet 02/03/19 History of Present Illness History of Present Illness: ADDIE TSEWART is a 58 year old female 58 year old female who has a history of asthma with COPD as well as tachycardia, diabetes and hypertension. She presented to the emergency department yesterday with difficulty breathing. She was given multiple nebulizer treatments and discharged home. This morning she was more short of breath. She did not respond to multiple nebulizer treatments and return to the emergency department. She feels that it was being outside in the heat that triggered the attack. She does not report any productive cough. She has not had chills or fever. She occasionally feels hot and then cold but that is her baseline. She is somewhat hypertensive and tachycardic but this is likely due to the albuterol. She does have a history of tachycardia and hypertension and therefore we will need to monitor her symptoms. She was given magnesium, nebulizer treatments, steroids and oxygen in the emergency department and referred to the hospital service for admission. She did not have a significant white count and her chest x-ray was unremarkable. Hospital Course Hospital Course: 58-year-old female with history of COPD and asthma exhibited with acute exacerbation of COPD with hypoxia. Hypoxia is resolved. No complications during the hospital stay. The cultures came back negative. Patient is going to go home on azithromycin 500 mg p.o. daily for 1 week. Physical Exam Vital Signs: Temp Pulse Resp BP Pulse Ox 98.4 F 86 18 144/66 H 98 02/03/19 10:58 02/03/19 10:58 02/03/19 10:58 02/03/19 10:58 02/03/19 10:58 Intake & Output 02/02/19 02/03/19 02/04/19 06:59 06:59 06:59 Intake Total 1290 480 Balance 1290 480 Weight 71.3 kg 71.3 kg General appearance: PRESENT: no acute distress Head exam: PRESENT: atraumatic Eye exam: PRESENT: PERRLA Mouth exam: PRESENT: moist, tongue midline Teeth exam: PRESENT: poor dentation Neck exam: ABSENT: carotid bruit, JVD, lymphadenopathy, thyromegaly Respiratory exam: PRESENT: decreased breath sounds Cardiovascular exam: PRESENT: RRR. ABSENT: diastolic murmur, rubs, systolic murmur GI/Abdominal exam: PRESENT: normal bowel sounds, soft. ABSENT: distended, guarding, mass, organolmegaly, rebound, tenderness Rectal exam: PRESENT: deferred Extremities exam: PRESENT: full ROM. ABSENT: calf tenderness, clubbing, pedal edema Neurological exam: PRESENT: alert, awake, oriented to person, oriented to place, oriented to time, oriented to situation, CN II-XII grossly intact. ABSENT: motor sensory deficit Psychiatric exam: PRESENT: appropriate affect, normal mood. ABSENT: homicidal ideation, suicidal ideation Results Laboratory Results: 02/03/19 05:26 02/03/19 05:26 02/03/19 02/03/19 05:26 05:26 WBC 15.2 H RBC 4.36 Hgb 11.4 L Hct 33.7 L MCV 77 L MCH 26.0 L MCHC 33.7 RDW 14.2 H Plt Count 363 Seg Neutrophils % 73.2 Lymphocytes % 12.0 L Monocytes % 14.2 H Eosinophils % 0.1 Basophils % 0.5 Absolute Neutrophils 11.1 H Absolute Lymphocytes 1.8 Absolute Monocytes 2.2 H Absolute Eosinophils 0.0 Absolute Basophils 0.1 Sodium 141.8 Potassium 3.3 L Chloride 103 Carbon Dioxide 33 H Anion Gap 6 BUN 13 Creatinine 0.49 L Est GFR ( Amer) > 60 Est GFR (Non-Af Amer) > 60 Glucose 88 Calcium 9.0 Magnesium 2.0 Total Bilirubin 0.3 AST 20 ALT 35 Alkaline Phosphatase 75 Total Protein 6.1 L Albumin 3.6 01/30/19 01/30/19 09:45 09:45 Creatine Kinase 44 CK-MB (CK-2) 0.47 Troponin I < 0.012 Impressions: Chest X-Ray 01/31/19 06:00 IMPRESSION: Small pleural effusions. No other significant findings. Qualifiers - * PATIENT BEING DISCHARGED WITH ANY OF THE FOLLOWING DIAGNOSIS: No VTE patient discharged on overlapping Therapy?: No Acute Heart Failure - Is this a Heart Failure Patient?: No
== END 2019-02-03 11:35 | disposition home or self-care (01) | DRG 202 ==
LOC: ER 09:24 → EH 12:58 → 4N 15:50
PROVIDERS: ADMIT Hospitalist; ATTEND Hospitalist
DX: J45.901 Unspecified asthma with (acute) exacerbation (principal); J44.1 Chronic obstructive pulmonary disease with (acute) exacerbation; I10 Essential (primary) hypertension; R00.0 Tachycardia, unspecified; E11.9 Type 2 diabetes mellitus without complications; M19.90 Unspecified osteoarthritis, unspecified site; Z79.84 Long term (current) use of oral hypoglycemic drugs; Z82.5 Family history of asthma and other chronic lower respiratory diseases; Z83.3 Family history of diabetes mellitus; Z82.49 Family history of ischemic heart disease and other diseases of the circulatory system
CPT/HCPCS: 36415; 36600; 71045; 80048; 80053; 81001; 82550; 82553; 82803; 82962; 83036; 83735; 84484; 85025; 87205; 93005; 93010; 94640; 96365; 96375; 99285; J0456; J1815; J2920; J2930; J3475; J3490; J7030; J7060; J7620

== ENCOUNTER → 2019-03-29 | Outpatient (CLI) | payer MEDICARE, MEDICAID ==
[2019-03-29 12:51] LABS: ABSOLUTE BASOPHILS # (AUTO) 0.1 10^3/uL (0.0-0.2); ABSOLUTE EOSINOPHILS # (AUTO) 0.5 10^3/uL (0.0-0.6); ABSOLUTE LYMPHOCYTES (AUTO) 1.5 10^3/uL (0.5-4.7); ABSOLUTE MONOCYTES (AUTO) 0.8 10^3/uL (0.1-1.4); ABSOLUTE NEUT (AUTO) 3.6 10^3/uL (1.7-8.2); BASOPHILS % (AUTO) 1.3 % (0-2); EOSINOPHILS % (AUTO) 7.9 % (0-6); HEMATOCRIT 34.9 % (36.0-47.0); HEMOGLOBIN 11.8 g/dL (12.0-15.5); LYMPHOCYTES % (AUTO) 23.4 % (13-45); MEAN CORPUSCULAR HEMOGLOBIN 26.4 pg (27.0-33.4); MEAN CORPUSCULAR HGB CONC 33.7 g/dL (32.0-36.0); MEAN CORPUSCULAR VOLUME 78 fl (80-97); MONOCYTES % (AUTO) 11.9 % (3-13); PLATELET COUNT 354 10^3/uL (150-450); RED BLOOD COUNT 4.45 10^6/uL (3.72-5.28); RED CELL DISTRIBUTION WIDTH 14.8 % (11.5-14.0); SEGMENTED NEUTROPHILS % (AUTO) 55.5 % (42-78); TOTAL CELLS COUNTED % (AUTO) 100 %; WHITE BLOOD COUNT 6.6 10^3/uL (4.0-10.5)
== END ==
LOC: LAB 12:23
PROVIDERS: ATTEND Registered Nurse
DX: J45.50 Severe persistent asthma, uncomplicated (principal)
CPT/HCPCS: 36415; 82785; 85025; 86003

== ENCOUNTER → 2019-04-05 | Outpatient (CLI) | payer MEDICARE, MEDICAID ==
--- NOTE | 2019-04-05 16:43 | WOMENS IMAGING REPORT ---
EXAM DESCRIPTION: BILAT SCREENING MAMMO W/CAD COMPLETED DATE/TIME: 04/05/2019 11:18 am REASON FOR STUDY: Z12.31 SCREENING MAMMO Z12.31 ENCNTR SCREEN MAMMOGRAM FOR MALIGNANT NEOPLASM OF B RE COMPARISON: 2017, 2016 EXAM PARAMETERS: Standard craniocaudal and mediolateral oblique views of each breast recorded using digital acquisition. Read with the assistance of CAD. .[employer] - [employer] Clinical Training Coordinator Version 9.2 LIMITATIONS: None. FINDINGS: No suspicious masses, suspicious calcifications or architectural distortion. No areas of c oncern. IMPRESSION: Negative MAMMOGRAM. BIRADS 1 BREAST DENSITY: c. The breasts are heterogeneously dense, which may obscure small masses. BIRAD: ASSESSMENT: 1 NEGATIVE RECOMMENDATION: ROUTINE SCREENING COMMENT: The patient has been notified of the results by letter per MQSA requirements. Additional no tification policies are in place for contacting patient with suspicious or incomplete findings. Quality ID #[id number]: The [employer] recommends an annual screening mammogram for women aged 40 years or over. This facility utilizes a reminder system to ensure that all patients receive reminder letters, and/or direct phone calls for appointments. This includes reminders for routine scr eening mammograms, diagnostic mammograms, or other Breast Imaging Interventions when appropriate. Th is patient will be placed in the appropriate reminder system. TECHNICAL DOCUMENTATION: FINDING NUMBER: (1) ASSESSMENT: (1) JOB ID: [id number] [employer]- All Rights Reserved Reading location - IP/workstation name: [email or web address]
== END ==
LOC: WI 10:50
PROVIDERS: ATTEND Nurse Practitioner Family
DX: Z12.31 Encounter for screening mammogram for malignant neoplasm of breast (principal)
CPT/HCPCS: 77067

== ENCOUNTER 2019-04-10 11:02 | Emergency (ER) | payer MEDICARE, MEDICAID ==
[2019-04-10] MEDS ORDERED: LEVALBUTEROL HCL NEB 1.25 MG/3 ML AMPUL NEB ONE (11:31)
[2019-04-10] MEDS ORDERED: METHYLPREDNISOLONE INJ 125 MG/2 ML SDV IV ONE (11:31)
--- NOTE | 2019-04-10 11:34 | ER Document Report ---
ED Medical Screen (RME) - General Chief Complaint: Shortness Of Breath Stated Complaint: DIFFICULTY BREATHING Time Seen by Provider: 04/10/19 11:29 Primary Care Provider: BONIFACIO MELENDEZ FNP-C [Primary Care Provider] - Follow up as needed Information source: Patient Notes: Patient presents complaining of cough for the past 4 days with difficulty breathing and nausea. Patient denies any chest discomfort. Patient does have a history of high blood pressure diabetes as well as COPD. Patient with tight wheezing bilaterally in triage I have greeted and performed a rapid initial assessment of this patient. A comprehensive ED assessment and evaluation of the patient, analysis of test results and completion of the medical decision making process will be conducted by additional ED providers. TRAVEL OUTSIDE OF THE [place] IN LAST 30 DAYS: No - Related Data Allergies/Adverse Reactions: benzonatate [From [employer]] Allergy (Verified 04/10/19 11:21) RCING HEARTBEART NSAIDS (Non-Steroidal Anti-Inflamma Allergy (Verified 04/10/19 11:21) RACING HEARTBEAT Past Medical History - Past Medical History Cardiac Medical History: Reports: Hx Hypertension Denies: Hx Atrial Fibrillation, Hx Coronary Artery Disease, Hx DVT, Hx Pulmonary Embolism Pulmonary Medical History: Reports: Hx Asthma, Hx Bronchitis, Hx COPD, Hx Pneumonia, Hx Respiratory Failure Denies: Hx Intubation Neurological Medical History: Denies: Hx Seizures Endocrine Medical History: Reports: Hx Diabetes Mellitus Type 2. Denies: Hx Diabetes Mellitus Type 1, Hx Hyperthyroidism, Hx Hypothyroidism Renal/ Medical History: Denies: Hx Peritoneal Dialysis GI Medical History: Reports: Hx Gastroesophageal Reflux Disease. Denies: Hx Cirrhosis, Hx Hepatitis Musculoskeltal Medical History: Reports Hx Arthritis, Denies Hx Gout Skin Medical History: Denies Hx Eczema, Denies Hx Psoriasis Psychiatric Medical History: Denies: Hx Depression Infectious Medical History: Denies: Hx Hepatitis - Immunizations Immunizations up to date: Yes Hx Diphtheria, Pertussis, Tetanus Vaccination: Yes History of Influenza Vaccine for 04/2017 - 09/2017 Season: Yes Influenza Administration Date for 04/2017 - 09/2017 Season: 04/12/17 Physical Exam - Vital signs Vitals: Temp Pulse Resp BP Pulse Ox 98.3 F 115 H 24 H 140/74 H 96 04/10/19 11:07 04/10/19 11:07 04/10/19 11:07 04/10/19 11:07 04/10/19 11:07 - Respiratory Respiratory status: No: Tachypnea Breath sounds: Nonproductive cough, Wheezing Course - Vital Signs Vital signs: Temp Pulse Resp BP Pulse Ox 98.3 F 115 H 24 H 140/74 H 96 04/10/19 11:07 04/10/19 11:07 04/10/19 11:07 04/10/19 11:07 04/10/19 11:07 Doctor's Discharge - Discharge Referrals: BONIFACIO MELENDEZ FNP-C [Primary Care Provider] - Follow up as needed
--- NOTE | 2019-04-10 12:00 | RADIOLOGY REPORT (SQ) ---
EXAM DESCRIPTION: CHEST 2 VIEWS COMPLETED DATE/TIME: 04/10/2019 11:53 am REASON FOR STUDY: diff breathing COMPARISON: 01/31/2019 EXAM PARAMETERS: NUMBER OF VIEWS: two views TECHNIQUE: Digital Frontal and Lateral radiographic views of the chest acquired. RADIATION DOSE: NA LIMITATIONS: none FINDINGS: LUNGS AND PLEURA: No opacities, masses or pneumothorax. No pleural effusion. MEDIASTINUM AND HILAR STRUCTURES: No masses or contour abnormalities. HEART AND VASCULAR STRUCTURES: Heart normal size. No evidence for failure. BONES: No acute findings. HARDWARE: None in the chest. OTHER: No other significant finding. IMPRESSION: NO ACUTE RADIOGRAPHIC FINDING IN THE CHEST. TECHNICAL DOCUMENTATION: JOB ID: [id number] [employer]- All Rights Reserved Reading location - IP/workstation name: [email or web address]
[2019-04-10 12:43] LABS: ARTERIAL BLOOD BASE EXCESS 0.8 mmol/L; ARTERIAL BLOOD FIO2 ROOM AIR; ARTERIAL BLOOD H2CO3 1.22 mmol/L (1.05-1.35); ARTERIAL BLOOD HCO3 25.4 mmol/L (20-24); ARTERIAL BLOOD O2 SATURATION 92.7 % (94-98); ARTERIAL BLOOD PCO2 40.4 mmHg (35-45); ARTERIAL BLOOD PH 7.42 (7.35-7.45); ARTERIAL BLOOD PO2 63.7 mmHg (80-100); ARTERIAL BLOOD TOTAL CO2 26.6 mmol/L (21-25)
[2019-04-10 12:44] LABS: ABSOLUTE EOSINOPHILS # (AUTO) 0.6 10^3/uL (0.0-0.6); ABSOLUTE LYMPHOCYTES (AUTO) 2.1 10^3/uL (0.5-4.7); ABSOLUTE MONOCYTES (AUTO) 0.8 10^3/uL (0.1-1.4); ABSOLUTE NEUT (AUTO) 5.8 10^3/uL (1.7-8.2); BASOPHILS % (AUTO) 0.4 % (0-2); EOSINOPHILS % (AUTO) 6.9 % (0-6); HEMATOCRIT 35.5 % (36.0-47.0); HEMOGLOBIN 11.8 g/dL (12.0-15.5); LYMPHOCYTES % (AUTO) 22.5 % (13-45); MEAN CORPUSCULAR HEMOGLOBIN 26.2 pg (27.0-33.4); MEAN CORPUSCULAR HGB CONC 33.4 g/dL (32.0-36.0); MEAN CORPUSCULAR VOLUME 79 fl (80-97); MONOCYTES % (AUTO) 8.8 % (3-13); PLATELET COUNT 431 10^3/uL (150-450); RED BLOOD COUNT 4.52 10^6/uL (3.72-5.28); RED CELL DISTRIBUTION WIDTH 14.7 % (11.5-14.0); SEGMENTED NEUTROPHILS % (AUTO) 61.4 % (42-78); TOTAL CELLS COUNTED % (AUTO) 100 %; WHITE BLOOD COUNT 9.4 10^3/uL (4.0-10.5)
[2019-04-10 13:01] LABS: ALBUMIN 4.3 g/dL (3.5-5.0); ALKALINE PHOSPHATASE 94 U/L (38-126); ANION GAP 9 (5-19); ASPARTATE AMINO TRANSFERASE 19 U/L (14-36); BILIRUBIN,DIRECT 0.1 mg/dL (0.0-0.4); BILIRUBIN,TOTAL 0.3 mg/dL (0.2-1.3); BLOOD UREA NITROGEN 9 mg/dL (7-20); CALCIUM 10.1 mg/dL (8.4-10.2); CARBON DIOXIDE 33 mmol/L (22-30); CHLORIDE 103 mmol/L (98-107); GLUCOSE 85 mg/dL (75-110); POTASSIUM 3.5 mmol/L (3.6-5.0); TOTAL PROTEIN 6.8 g/dL (6.3-8.2)
[2019-04-10] MEDS ORDERED: IPRATROPIUM/ALBUTEROL 0.5-2.5 MG/3 ML AMPUL NEB ONE (13:24)
[2019-04-10] MEDS ORDERED: ALBUTEROL SULFATE 0.083% NEB 2.5 MG/3 ML AMPUL NEB ONE (13:24)
--- NOTE | 2019-04-10 13:31 | ER Document Report ---
ED General - General Chief Complaint: Shortness Of Breath Stated Complaint: DIFFICULTY BREATHING Time Seen by Provider: 04/10/19 11:29 Primary Care Provider: BONIFACIO MELENDEZ FNP-C [Primary Care Provider] - Follow up as needed TRAVEL OUTSIDE OF THE [place] IN LAST 30 DAYS: No - HPI Notes: Patient is a 58-year-old female that presents to the emergency department for chief complaint of shortness of breath. Patient reports history of COPD and has been admitted to the hospital 3 times since December 2018. She states that last month she was also in the hospital. She denies any intubations in the past. She is not on home oxygen. She states she has had increasing shortness of breath over the last 4 days. She has been using her home albuterol as directed. She is not currently on steroids. She denies any change in her cough or increase in sputum. She reports occasional chills but denies fevers. She denies any associated chest pain. She states this does feel like her COPD and she has some improvement after receiving a Xopenex in triage. Past Medical History: COPD, hypertension, diabetes Past Surgical History: Reviewed in chart Social History: Denies tobacco, alcohol or drug use Family History: Reviewed and noncontributory for presenting illness Allergies: Reviewed, see documented allergy list. REVIEW OF SYSTEMS: CONSTITUTIONAL : No fever chills No diaphoresis No recent illness EENT: No vision changes No congestion No sore throat CARDIOVASCULAR: No chest pain No palpitations RESPIRATORY: shortness of breath cough difficulty breathing GASTROINTESTINAL: No abdominal pain No nausea No vomiting No diarrhea GENITOURINARY: No dysuria No hematuria No difficulty urinating MUSCULOSKELETAL: No back pain No leg pain No arm pain SKIN: No rashes No lesions LYMPHATIC: No swollen, enlarged glands. NEUROLOGICAL: No lightheadedness No headache No weakness No paresthesias PSYCHIATRIC: No anxiety No depression PHYSICAL EXAMINATION: Vital signs reviewed, nursing noted reviewed. GENERAL: Well-appearing, obese and in no acute distress. HEAD: Atraumatic, normocephalic. EYES: Eyes appear normal, extraocular movements intact, sclera anicteric, conjunctiva are normal. ENT: nares patent, oropharynx clear without exudates. Moist mucous membranes. NECK: Normal range of motion, supple without lymphadenopathy LUNGS: Breath sounds diminished with expiratory wheezing to auscultation bilaterally and equal. No rhonchi or rails. No accessory muscle use. HEART: Regular rate and rhythm without murmurs ABDOMEN: Soft, nontender, normoactive bowel sounds. No rebound, guarding, or rigidity. No masses appreciated. EXTREMITIES: Nontender, good range of motion, no pitting or edema. NEUROLOGICAL: No focal neurological deficits. Moves all extremities spontaneously Motor and sensory grossly intact on exam. PSYCH: Normal mood, normal affect. SKIN: Warm, Dry, normal turgor, no rashes or lesions noted on exposed skin - Related Data Allergies/Adverse Reactions: benzonatate [From [employer]] Allergy (Verified 04/10/19 11:21) RCING HEARTBEART NSAIDS (Non-Steroidal Anti-Inflamma Allergy (Verified 04/10/19 11:21) RACING HEARTBEAT Past Medical History - General Information source: Patient - Social History Smoking Status: Never Smoker Family History: COPD, DM, Hypertension Patient has suicidal ideation: No Patient has homicidal ideation: No - Past Medical History Cardiac Medical History: Reports: Hx Hypertension Denies: Hx Atrial Fibrillation, Hx Coronary Artery Disease, Hx DVT, Hx Pulmonary Embolism Pulmonary Medical History: Reports: Hx Asthma, Hx Bronchitis, Hx COPD, Hx Pneumonia, Hx Respiratory Failure Denies: Hx Intubation Neurological Medical History: Denies: Hx Seizures Endocrine Medical History: Reports: Hx Diabetes Mellitus Type 2. Denies: Hx Diabetes Mellitus Type 1, Hx Hyperthyroidism, Hx Hypothyroidism Renal/ Medical History: Denies: Hx Peritoneal Dialysis GI Medical History: Reports: Hx Gastroesophageal Reflux Disease. Denies: Hx Cirrhosis, Hx Hepatitis Musculoskeletal Medical History: Reports Hx Arthritis, Denies Hx Gout Skin Medical History: Denies Hx Eczema, Denies Hx Psoriasis Psychiatric Medical History: Denies: Hx Depression Infectious Medical History: Denies: Hx Hepatitis - Immunizations Immunizations up to date: Yes Hx Diphtheria, Pertussis, Tetanus Vaccination: Yes Physical Exam - Vital signs Vitals: Temp Pulse Resp BP Pulse Ox 98.3 F 115 H 24 H 140/74 H 96 04/10/19 11:07 04/10/19 11:07 04/10/19 11:07 04/10/19 11:07 04/10/19 11:07 Course - Re-evaluation Re-evalutation: 04/10/19 13:28 Vitals reviewed. Nursing notes reviewed. Patient has wheezing to auscultation bilaterally. She had a ABG which showed hypoxia at presentation. She has received aerosols and currently is oxygenating at 97% on room air. She is in no acute respiratory distress. Patient has also received Solu-Medrol 125 mg. Chest x-ray shows no underlying pneumonia or pneumothorax. She has no acute anemia. Patient has a normal WBC count and no signs of acute infection. Currently her presentation is consistent with COPD exacerbation. She is in no respiratory distress currently. Patient still has wheezing to auscultation after receiving Xopenex and was ordered DuoNeb and albuterol for further treatment. She will be discharged home on prednisone and encouraged to use her home nebulized albuterol every 4 hours. Patient will follow closely with her PCP or return for new or worsening symptoms. She is stable and improved for discharge. Laboratory 04/10/19 04/10/19 04/10/19 12:27 12:27 12:27 WBC 9.4 RBC 4.52 Hgb 11.8 L Hct 35.5 L MCV 79 L MCH 26.2 L MCHC 33.4 RDW 14.7 H Plt Count 431 Lymph % (Auto) 22.5 [place] % (Auto) 8.8 Eos % (Auto) 6.9 H Baso % (Auto) 0.4 Absolute Neuts (auto) 5.8 Absolute Lymphs (auto) 2.1 Absolute Monos (auto) 0.8 Absolute Eos (auto) 0.6 Absolute Basos (auto) 0.0 Seg Neutrophils % 61.4 Carbonic Acid HCO3/H2CO3 Ratio ABG pH ABG pCO2 ABG pO2 ABG HCO3 ABG Total CO2 ABG O2 Saturation ABG Base Excess FiO2 Sodium 144.6 Potassium 3.5 L Chloride 103 Carbon Dioxide 33 H Anion Gap 9 BUN 9 Creatinine 0.65 Est GFR ( Amer) > 60 Est GFR (MDRD) Non-Af > 60 Glucose 85 Calcium 10.1 Total Bilirubin 0.3 Direct Bilirubin 0.1 Neonat Total Bilirubin Not Reportable Neonat Direct Bilirubin Not Reportable Neonat Indirect Bili Not Reportable AST 19 ALT 15 Alkaline Phosphatase 94 Troponin I < 0.012 Total Protein 6.8 Albumin 4.3 04/10/19 12:27 WBC RBC Hgb Hct MCV MCH MCHC RDW Plt Count Lymph % (Auto) [place] % (Auto) Eos % (Auto) Baso % (Auto) Absolute Neuts (auto) Absolute Lymphs (auto) Absolute Monos (auto) Absolute Eos (auto) Absolute Basos (auto) Seg Neutrophils % Carbonic Acid 1.22 HCO3/H2CO3 Ratio 20:1 ABG pH 7.42 ABG pCO2 40.4 ABG pO2 63.7 L ABG HCO3 25.4 H ABG Total CO2 26.6 H ABG O2 Saturation 92.7 L ABG Base Excess 0.8 FiO2 ROOM AIR Sodium Potassium Chloride Carbon Dioxide Anion Gap BUN Creatinine Est GFR ( Amer) Est GFR (MDRD) Non-Af Glucose Calcium Total Bilirubin Direct Bilirubin Neonat Total Bilirubin Neonat Direct Bilirubin Neonat Indirect Bili AST ALT Alkaline Phosphatase Troponin I Total Protein Albumin Chest X-Ray 04/10/19 11:32 IMPRESSION: NO ACUTE RADIOGRAPHIC FINDING IN THE CHEST. - Vital Signs Vital signs: Temp Pulse Resp BP Pulse Ox 98.3 F 115 H 22 H 133/97 H 98 04/10/19 11:07 04/10/19 11:07 04/10/19 12:40 04/10/19 12:40 04/10/19 12:40 - Laboratory Result Diagrams: 04/10/19 12:27 04/10/19 12:27 Laboratory results interpreted by me: 04/10/19 04/10/19 04/10/19 12:27 12:27 12:27 Hgb 11.8 L Hct 35.5 L MCV 79 L MCH 26.2 L RDW 14.7 H Eos % (Auto) 6.9 H ABG pO2 63.7 L ABG HCO3 25.4 H ABG Total CO2 26.6 H ABG O2 Saturation 92.7 L Potassium 3.5 L Carbon Dioxide 33 H Discharge - Discharge Clinical Impression: COPD with exacerbation Condition: Stable Disposition: HOME, SELF-CARE Instructions: Chronic Obstructive Lung Disease ([facility]) Additional Instructions: Please return to the emergency department if you have any worsening, or concern of your symptoms. Please return to the emergency department if you develop chest pain, difficulty breathing, severe abdominal pain, or ongoing vomiting. Please follow-up with your primary care physician in 2-3 days and any other recommended physicians. If prescribed, take all medications as directed. If you have any questions or concerns do not hesitate to return the emergency department for evaluation. Use your albuterol nebulizer every 4 hours and return to the emergency room if you are needing it more often than this. Begin taking the prednisone prescription on 04/11/2019. Monitor your blood sugars daily while on the steroids, steroids will increase your blood sugar. Prescriptions: Prednisone [Deltasone 20 mg Tablet] 2 tab PO DAILY 5 Days tablet Referrals: BONIFACIO MELENDEZ FNP-C [Primary Care Provider] - 04/12/19
[2019-04-10 15:01] VITALS: BP 143/67
--- NOTE | 2019-04-11 00:55 | EKG REPORT ---
SEVERITY:- OTHERWISE NORMAL ECG - SINUS TACHYCARDIA : Confirmed by: Tianna Xavier 11-Apr-2019 00:54:48
== END 2019-04-10 15:02 | disposition home or self-care (01) ==
LOC: ER 11:02
DX: J44.1 Chronic obstructive pulmonary disease with (acute) exacerbation (principal); R06.02 Shortness of breath; I10 Essential (primary) hypertension; J45.909 Unspecified asthma, uncomplicated; E11.9 Type 2 diabetes mellitus without complications
CPT/HCPCS: 93005; 94640 ×2; 99285; 96374; 36415; 82803; 85025; 80053; 84484; 71046; 93010; J2930; A9270 ×2; J3490; J7620

== ENCOUNTER 2019-04-28 00:01 | Emergency (ER) | payer MEDICARE, MEDICAID ==
[2019-04-28] MEDS ORDERED: IPRATROPIUM/ALBUTEROL 0.5-2.5 MG/3 ML AMPUL NEB ONE ×2 (00:33→03:03)
[2019-04-28] MEDS ORDERED: METHYLPREDNISOLONE INJ 125 MG/2 ML SDV IV ONE (00:43)
[2019-04-28] MEDS: ALBUTEROL SULFATE 0.083% NEB 2.5 MG/3 ML AMPUL NEB SCH ×2 (00:52→01:08)
[2019-04-28 01:01] LABS: ABSOLUTE BASOPHILS # (AUTO) 0.1 10^3/uL (0.0-0.2); ABSOLUTE EOSINOPHILS # (AUTO) 1.4 10^3/uL (0.0-0.6); ABSOLUTE NEUT (AUTO) 5.9 10^3/uL (1.7-8.2); BASOPHILS % (AUTO) 0.7 % (0-2); EOSINOPHILS % (AUTO) 13.6 % (0-6); HEMATOCRIT 37.4 % (36.0-47.0); HEMOGLOBIN 12.6 g/dL (12.0-15.5); LYMPHOCYTES % (AUTO) 19.6 % (13-45); MEAN CORPUSCULAR HEMOGLOBIN 26.8 pg (27.0-33.4); MEAN CORPUSCULAR HGB CONC 33.5 g/dL (32.0-36.0); MEAN CORPUSCULAR VOLUME 80 fl (80-97); MONOCYTES % (AUTO) 9.4 % (3-13); PLATELET COUNT 342 10^3/uL (150-450); RED BLOOD COUNT 4.69 10^6/uL (3.72-5.28); RED CELL DISTRIBUTION WIDTH 14.7 % (11.5-14.0); SEGMENTED NEUTROPHILS % (AUTO) 56.7 % (42-78); TOTAL CELLS COUNTED % (AUTO) 100 %; WHITE BLOOD COUNT 10.4 10^3/uL (4.0-10.5)
--- NOTE | 2019-04-28 01:01 | ER Document Report ---
Entered by AZALIA BELTRÁN SCRIBE 04/28/19 0049 Acting as scribe for:SON BUNCH MD ED Respiratory Problem - General Chief Complaint: Shortness Of Breath Stated Complaint: DIFFICULTY BREATHING Time Seen by Provider: 04/28/19 00:31 Primary Care Provider: BONIFACIO MELENDEZ FNP-C [Primary Care Provider] - Follow up as needed Mode of Arrival: Ambulatory Information source: Patient Notes: Patient is a 58-year-old female with COPD who presents to the emergency department with complaints of wheezing and shortness of breath that started toda y. Last prednisone the patient received was a prescription from the emergency room on 04/11/2019 for a 5-day course of prednisone 40 mg daily. She has been admitted 7 times in the past year for COPD and asthma exacerbations. TRAVEL OUTSIDE OF THE [place] IN LAST 30 DAYS: No - Related Data Allergies/Adverse Reactions: benzonatate [From Tessalon Perles] Allergy (Verified 04/10/19 11:21) RCING HEARTBEART NSAIDS (Non-Steroidal Anti-Inflamma Allergy (Verified 04/10/19 11:21) RACING HEARTBEAT Past Medical History - General Information source: Patient - Social History Smoking Status: Former Smoker Cigarette use (# per day): No Chew tobacco use (# tins/day): No Smoking Education Provided: No Frequency of alcohol use: None Drug Abuse: None Lives with: Family Family History: COPD, DM, Hypertension Patient has suicidal ideation: No Patient has homicidal ideation: No - Past Medical History Cardiac Medical History: Reports: Hx Hypertension Pulmonary Medical History: Reports: Hx Asthma, Hx Bronchitis, Hx COPD, Hx Pneumonia, Hx Respiratory Failure Endocrine Medical History: Reports: Hx Diabetes Mellitus Type 2 GI Medical History: Reports: Hx Gastroesophageal Reflux Disease Musculoskeletal Medical History: Reports Hx Arthritis Surgical Hx: Negative - Immunizations Immunizations up to date: Yes Hx Diphtheria, Pertussis, Tetanus Vaccination: Yes Review of Systems - Review of Systems Constitutional: No symptoms reported EENT: No symptoms reported Cardiovascular: No symptoms reported Respiratory: See HPI, Short of breath, Wheezing Gastrointestinal: No symptoms reported Genitourinary: No symptoms reported Female Genitourinary: No symptoms reported Musculoskeletal: No symptoms reported Skin: No symptoms reported Hematologic/Lymphatic: No symptoms reported Neurological/Psychological: No symptoms reported -: Yes All other systems reviewed and negative Physical Exam - Vital signs Vitals: Temp Pulse Resp BP Pulse Ox 97.6 F 117 H 24 H 132/64 H 100 04/28/19 00:13 04/28/19 00:13 04/28/19 00:13 04/28/19 00:13 04/28/19 00:13 - Notes Notes: Physical Exam: General: Alert, appears short of breath. HEENT: Normocephalic. Atraumatic. PERRL. Extraocular movements intact. Oropharynx clear. Neck: Supple. Non-tender. Respiratory: Prolonged expiratory phase. Inspiratory and expiratory wheezing bilaterally. Rhonchi with forced cough. Cardiovascular: Tachycardic, regular rhythm. Abdominal: Normal Inspection. Non-tender. No distension. Normal Bowel Sounds. Back: No gross abnormalities. Extremities: Moves all four extremities. Upper extremities: Normal inspection. Normal ROM. Lower extremities: Normal inspection. No edema. Normal ROM. Neurological: Normal cognition. AAOx4. Normal speech. Psychological: Normal affect. Normal Mood. Skin: Warm. Dry. Normal color. Course - Re-evaluation Re-evalutation: 04/28/19 05:00 At this time the patient's pulse ox is 99% on room air. She still is breathing a little fast, there is only faint expiratory wheezes heard when I have her take a very large breath and then exhale. She does feel like she will be okay to go home and use her nebulizer at home, while we add prednisone to her medication regimen. - Vital Signs Vital signs: Temp Pulse Resp BP Pulse Ox 97.6 F 94 15 115/80 100 04/28/19 00:13 04/28/19 04:00 04/28/19 05:01 04/28/19 05:01 04/28/19 05:01 - Laboratory Result Diagrams: 04/28/19 00:48 04/28/19 00:48 Laboratory results interpreted by me: 04/28/19 04/28/19 00:48 00:48 MCH 26.8 L RDW 14.7 H Eos % (Auto) 13.6 H Absolute Eos (auto) 1.4 H Glucose 141 H - Diagnostic Test Radiology reviewed: Image reviewed, Reports reviewed - Chest x-ray does not show acute cardiopulmonary findings. - EKG Interpretation by Me EKG shows normal: Sinus rhythm, Buena, Intervals, QRS Complexes, ST-T Waves Rate: Tachycardia - 107 When compared to previous EKG there are: No significant change Critical Care Note - Critical Care Note Total time excluding time spent on procedures (mins): 35 Discharge - Discharge Clinical Impression: Acute exacerbation of chronic obstructive pulmonary disease (COPD) Condition: Stable Disposition: HOME, SELF-CARE Additional Instructions: Add the prednisone as prescribed to your regular medications. Drink plenty of fluids and get plenty of rest. Follow-up with your primary care provider next week to discuss your frequent need for prednisone. RETURN TO THE EMERGENCY ROOM IF ANY NEW OR WORSENING SYMPTOMS. Prescriptions: Prednisone [Deltasone 20 mg Tablet] 20 mg PO BID #14 tablet Referrals: BONIFACIO MELENDEZ FNP-C [Primary Care Provider] - Follow up in 3-5 days Scribe Attestation: 04/28/19 01:06 I personally performed the services described in the documentation, reviewed and edited the documentation which was dictated to the scribe in my presence, and it accurately records my words and actions. I personally performed the services described in the documentation, reviewed and edited the documentation which was dictated to the scribe in my presence, and it accurately records my words and actions.
[2019-04-28] MEDS: MAGNESIUM SULFATE/D5W 1 GM/100 ML RTUPB IV SCH ×2 (01:08→02:03)
--- NOTE | 2019-04-28 01:13 | RADIOLOGY REPORT (SQ) ---
EXAM DESCRIPTION: [facility]: XR CHEST 1 VIEW CLINICAL HISTORY: 58 years Female, COPD exacerbation COMPARISON: 04/10/2019 FINDINGS: Lungs are clear, with no focal infiltrate, pneumothorax, or pleural effusion. Mediastinum is within normal limits for this positioning. Bony structures are unremarkable. IMPRESSION: 1. No acute pulmonary findings.
[2019-04-28 01:14] LABS: ALBUMIN 4.1 g/dL (3.5-5.0); ALKALINE PHOSPHATASE 86 U/L (38-126); ANION GAP 10 (5-19); ASPARTATE AMINO TRANSFERASE 20 U/L (14-36); BILIRUBIN,DIRECT 0.2 mg/dL (0.0-0.4); BILIRUBIN,TOTAL 0.4 mg/dL (0.2-1.3); BLOOD UREA NITROGEN 16 mg/dL (7-20); CALCIUM 9.9 mg/dL (8.4-10.2); CARBON DIOXIDE 28 mmol/L (22-30); CHLORIDE 105 mmol/L (98-107); CREATINE KINASE 42 U/L (30-135); GLUCOSE 141 mg/dL (75-110); POTASSIUM 3.9 mmol/L (3.6-5.0); TOTAL PROTEIN 6.7 g/dL (6.3-8.2)
[2019-04-28] MEDS ORDERED: LEVETIRACETAM 1500 MG/NACL-ISO 1,500 MG/100 ML RTUPB IV ONE (01:20)
[2019-04-28] MEDS ORDERED: ALBUTEROL SULFATE 0.083% NEB 2.5 MG/3 ML AMPUL NEB ONE (04:09)
[2019-04-28] MEDS ORDERED: PREDNISONE 20 MG TABLET PO ONE (05:00)
[2019-04-28 06:13] VITALS: BP 128/78
--- NOTE | 2019-04-28 09:13 | EKG REPORT ---
SEVERITY:- OTHERWISE NORMAL ECG - SINUS TACHYCARDIA : Confirmed by: Tianna Xavier 28-Apr-2019 09:12:42
== END 2019-04-28 06:13 | disposition home or self-care (01) ==
LOC: ER 00:01
DX: J44.1 Chronic obstructive pulmonary disease with (acute) exacerbation (principal); R06.02 Shortness of breath; R00.0 Tachycardia, unspecified; E11.9 Type 2 diabetes mellitus without complications; I10 Essential (primary) hypertension; Z87.891 Personal history of nicotine dependence; Z87.01 Personal history of pneumonia (recurrent); Z88.8 Allergy status to other drugs, medicaments and biological substances
CPT/HCPCS: 93005; 36415; 87040; 82550; 85025; 80053; 84484; 71045; 93010; J2930; J3475; A9270 ×3; 94640; 96365; 96366; 96372; 99291; J7512; J7620

== ENCOUNTER 2019-06-13 19:20 | Inpatient (IN) | payer MEDICARE ==
[2019-06-13] MEDS ORDERED: IPRATROPIUM/ALBUTEROL 0.5-2.5 MG/3 ML AMPUL NEB ONE ×2 (19:40→21:49)
[2019-06-13] MEDS ORDERED: METHYLPREDNISOLONE INJ 125 MG/2 ML SDV IV ONE (19:40)
--- NOTE | 2019-06-13 19:49 | ER Document Report ---
ED Medical Screen (RME) - General Chief Complaint: Shortness Of Breath Stated Complaint: SHORTNESS OF BREATH Time Seen by Provider: 06/13/19 19:39 Primary Care Provider: DANITZA BILLY MD [Primary Care Provider] - Follow up as needed Notes: Patient is a 58-year-old female who presents emergency department with a chief complaint of shortness of breath. Patient reports she does have a history of COPD, asthma and presents with nasal congestion and cough since last night. Patient denies fever. Patient reports she did cough violently this morning and vomit once. Patient reports she attempted to use her albuterol inhaler without much relief. TRAVEL OUTSIDE OF THE [place] IN LAST 30 DAYS: No - Related Data Allergies/Adverse Reactions: benzonatate [From Tesjacque Francis] Allergy (Verified 04/10/19 11:21) RCING HEARTBEART NSAIDS (Non-Steroidal Anti-Inflamma Allergy (Verified 04/10/19 11:21) RACING HEARTBEAT Past Medical History - Past Medical History Cardiac Medical History: Reports: Hx Hypertension Denies: Hx Atrial Fibrillation, Hx Coronary Artery Disease, Hx DVT, Hx Heart Attack, Hx Pulmonary Embolism Pulmonary Medical History: Reports: Hx Asthma, Hx Bronchitis, Hx COPD, Hx Pneumonia, Hx Respiratory Failure Denies: Hx Intubation Neurological Medical History: Denies: Hx Cerebrovascular Accident, Hx Seizures Endocrine Medical History: Reports: Hx Diabetes Mellitus Type 2. Denies: Hx Patrica betes Mellitus Type 1, Hx Hyperthyroidism, Hx Hypothyroidism Renal/ Medical History: Denies: Hx Peritoneal Dialysis GI Medical History: Reports: Hx Gastroesophageal Reflux Disease. Denies: Hx Cirrhosis, Hx Hepatitis Musculoskeltal Medical History: Denies Hx Arthritis, Denies Hx Gout Skin Medical History: Denies Hx Eczema, Denies Hx Psoriasis Psychiatric Medical History: Denies: Hx Depression Infectious Medical History: Denies: Hx Hepatitis - Immunizations Immunizations up to date: Yes Hx Diphtheria, Pertussis, Tetanus Vaccination: No Physical Exam - Vital signs Vitals: Temp Pulse Resp BP Pulse Ox 98.1 F 84 24 H 120/90 H 92 06/13/19 19:27 06/13/19 19:27 06/13/19 19:27 06/13/19 19:27 06/13/19 19:27 - Respiratory Respiratory status: Labored, Tachypnea Course - Re-evaluation Re-evalutation: 06/13/19 19:49 I have greeted and performed a rapid initial assessment of this patient. A comprehensive ED assessment and evaluation of the patient, analysis of test results and completion of the medical decision making process will be conducted by additional ED providers. - Vital Signs Vital signs: Temp Pulse Resp BP Pulse Ox 98.1 F 84 24 H 120/90 H 92 06/13/19 19:27 06/13/19 19:27 06/13/19 19:27 06/13/19 19:27 06/13/19 19:27 Doctor's Discharge - Discharge Referrals: DANITZA BILLY MD [Primary Care Provider] - Follow up as needed
--- NOTE | 2019-06-13 20:05 | ER Document Report ---
ED General - General Chief Complaint: Shortness Of Breath Stated Complaint: SHORTNESS OF BREATH Time Seen by Provider: 06/13/19 19:39 TRAVEL OUTSIDE OF THE [place] IN LAST 30 DAYS: No - HPI Notes: Patient is a 58-year-old female with a complex medical history, including COPD, who presents emergency department for evaluation of cough and shortness of breath. She states her cough and congestion began last night. She states she became more progressively short of breath today. She denies any fevers. She denies any pain of any sort. She states she had one episode of posttussive emesis. She is still urinating. No dysuria. Normal bowel movements. She is keeping her medications down, taking them as prescribed. - Related Data Allergies/Adverse Reactions: benzonatate [From Tessalon Perljoe] Allergy (Verified 04/10/19 11:21) RCING HEARTBEART NSAIDS (Non-Steroidal Anti-Inflamma Allergy (Verified 04/10/19 11:21) RACING HEARTBEAT Past Medical History - General Information source: Patient - Social History Smoking Status: Former Smoker Family History: COPD, DM, Hypertension Patient has suicidal ideation: No Patient has homicidal ideation: No - Past Medical History Cardiac Medical History: Reports: Hx Hypertension Denies: Hx Atrial Fibrillation, Hx Coronary Artery Disease, Hx DVT, Hx Heart Attack, Hx Pulmonary Embolism Pulmonary Medical History: Reports: Hx Asthma, Hx Bronchitis, Hx COPD, Hx Pneumonia, Hx Respiratory Failure Denies: Hx Intubation Neurological Medical History: Denies: Hx Cerebrovascular Accident, Hx Seizures Endocrine Medical History: Reports: Hx Diabetes Mellitus Type 2. Denies: Hx Diabetes Mellitus Type 1, Hx Hyperthyroidism, Hx Hypothyroidism Renal/ Medical History: Denies: Hx Peritoneal Dialysis GI Medical History: Reports: Hx Gastroesophageal Reflux Disease. Denies: Hx Cirrhosis, Hx Hepatitis Musculoskeletal Medical History: Denies Hx Arthritis, Denies Hx Gout Skin Medical History: Denies Hx Eczema, Denies Hx Psoriasis Psychiatric Medical History: Denies: Hx Depression Infectious Medical History: Denies: Hx Hepatitis - Immunizations Immunizations up to date: Yes Hx Diphtheria, Pertussis, Tetanus Vaccination: No Review of Systems - Review of Systems Constitutional: No symptoms reported EENT: See HPI Cardiovascular: No symptoms reported Respiratory: See HPI Gastrointestinal: See HPI Genitourinary: No symptoms reported Musculoskeletal: No symptoms reported Skin: No symptoms reported Neurological/Psychological: No symptoms reported Physical Exam - Vital signs Vitals: Temp Pulse Resp BP Pulse Ox 98.1 F 84 24 H 120/90 H 92 06/13/19 19:27 06/13/19 19:27 06/13/19 19:27 06/13/19 19:27 06/13/19 19:27 - Notes Notes: Is a 58-year-old female who appears older than her stated age and amount of moderate distress. She is tachypnic with increased work of breathing. Vital signs reviewed, please refer to chart. Head is normocephalic, atraumatic. Pupils equal round, reactive to light. Neck is supple without meningismus. Heart is regular rate and rhythm. Lungs reveal markedly diminished breath sounds without rales, scant inspiratory and expiratory wheezes noted throughout. Abdomen is soft, nontender, normoactive bowel sounds throughout. Extremities without cyanosis, clubbing. Posterior calves are nontender. Peripheral pulses are equal. Skin is warm and dry. Patient is awake, alert, neurological exam is nonfocal. Course - Re-evaluation Re-evalutation: 06/13/19 23:49 Patient presents emerged department for evaluation of dyspnea. She had laboratory investigations, including VBG, steroids, breathing treatment ordered. Patient stated she felt somewhat improved after first breathing treatment, but rapidly deteriorated. Her chest x-ray shows no acute abnormality. She was given a second DuoNeb. When I went back to evaluate the patient she was slightly drowsy. Her GCS was still 14, but I was concerned about the possibility of an acute change. ABG was obtained. She is not hypercarbic, pH remains normal, but she is in fact hypoxemic on 2 L. The patient is not on oxygen at home. Given this information, I contacted Dr. Hernandez. He will admit the patient for further care. - Vital Signs Vital signs: Temp Pulse Resp BP Pulse Ox 97.3 F 18 L 18 121/75 94 06/14/19 01:32 06/14/19 01:32 06/14/19 01:32 06/14/19 01:01 06/14/19 01:32 - Laboratory Result Diagrams: 06/13/19 20:20 06/13/19 20:20 Laboratory results interpreted by me: 06/13/19 06/13/19 06/13/19 20:20 20:20 22:40 WBC 12.9 H MCV 77 L MCH 25.8 L Lymph % (Auto) 12.3 L Eos % (Auto) 11.4 H Absolute Neuts (auto) 8.4 H Absolute Eos (auto) 1.5 H ABG pO2 62.6 L ABG HCO3 28.4 H ABG Total CO2 29.8 H ABG O2 Saturation 92.6 L Potassium 3.5 L Glucose 114 H - Diagnostic Test Radiology reviewed: Reports reviewed Radiology results interpreted by me: 06/13/19 23:50 Chest X-Ray 06/13/19 19:51 IMPRESSION: Unremarkable chest x-ray. - EKG Interpretation by Me Additional EKG results interpreted by me: 06/13/19 23:50 Sinus tachycardia with rate of 123 bpm. Normal axis and intervals. No acute ST changes concerning for infarction, and no significant change in compared to prior study. Discharge - Discharge Clinical Impression: COPD with exacerbation, Hypoxemia Condition: Stable Disposition: ADMITTED INPATIENT Admitting Provider: David (Hospitalist) Unit Admitted: Medical Floor
[2019-06-13 20:32] LABS: ABSOLUTE BASOPHILS # (AUTO) 0.1 10^3/uL (0.0-0.2); ABSOLUTE EOSINOPHILS # (AUTO) 1.5 10^3/uL (0.0-0.6); ABSOLUTE LYMPHOCYTES (AUTO) 1.6 10^3/uL (0.5-4.7); ABSOLUTE MONOCYTES (AUTO) 1.3 10^3/uL (0.1-1.4); ABSOLUTE NEUT (AUTO) 8.4 10^3/uL (1.7-8.2); BASOPHILS % (AUTO) 0.6 % (0-2); EOSINOPHILS % (AUTO) 11.4 % (0-6); HEMOGLOBIN 12.7 g/dL (12.0-15.5); LYMPHOCYTES % (AUTO) 12.3 % (13-45); MEAN CORPUSCULAR HEMOGLOBIN 25.8 pg (27.0-33.4); MEAN CORPUSCULAR HGB CONC 33.5 g/dL (32.0-36.0); MEAN CORPUSCULAR VOLUME 77 fl (80-97); MONOCYTES % (AUTO) 10.1 % (3-13); PLATELET COUNT 426 10^3/uL (150-450); RED BLOOD COUNT 4.94 10^6/uL (3.72-5.28); RED CELL DISTRIBUTION WIDTH 13.9 % (11.5-14.0); SEGMENTED NEUTROPHILS % (AUTO) 65.6 % (42-78); TOTAL CELLS COUNTED % (AUTO) 100 %; WHITE BLOOD COUNT 12.9 10^3/uL (4.0-10.5)
--- NOTE | 2019-06-13 20:42 | RADIOLOGY REPORT (SQ) ---
EXAM DESCRIPTION: CLINICAL HISTORY: 58 years Female, dyspnea COMPARISON: Chest x-ray 04/28/2019. FINDINGS: Cardiomediastinal silhouette is not enlarged. No suspicious lung pleural bone abnormalities. IMPRESSION: Unremarkable chest x-ray.
[2019-06-13 20:51] LABS: ALBUMIN 4.5 g/dL (3.5-5.0); ALKALINE PHOSPHATASE 111 U/L (38-126); ANION GAP 11 (5-19); ASPARTATE AMINO TRANSFERASE 21 U/L (14-36); BILIRUBIN,DIRECT 0.1 mg/dL (0.0-0.4); BILIRUBIN,TOTAL 0.6 mg/dL (0.2-1.3); BLOOD UREA NITROGEN 13 mg/dL (7-20); CALCIUM 10.2 mg/dL (8.4-10.2); CARBON DIOXIDE 29 mmol/L (22-30); CHLORIDE 105 mmol/L (98-107); GLUCOSE 114 mg/dL (75-110); POTASSIUM 3.5 mmol/L (3.6-5.0); TOTAL PROTEIN 7.6 g/dL (6.3-8.2)
[2019-06-13 20:55] LABS: A TYPE INFLUENZA AG NEGATIVE (NEGATIVE); B INFLUENZA AG NEGATIVE (NEGATIVE)
[2019-06-13 21:05] LABS: VENOUS BLOOD BASE EXCESS 4.4 mmol/L; VENOUS BLOOD HCO3 29.8 mmol/L (20-32); VENOUS BLOOD PCO2 47.2 mmHg (35-63); VENOUS BLOOD PH 7.42 (7.30-7.42)
--- NOTE | 2019-06-13 22:31 | EKG REPORT ---
SEVERITY:- ABNORMAL ECG - SINUS TACHYCARDIA CHARLES, CONSIDER BIATRIAL ABNORMALITIES BORDERLINE ST DEPRESSION, LATERAL LEADS : Confirmed by: Pennie Wilde MD 13-Jun-2019 22:30:07
[2019-06-13 22:53] LABS: ARTERIAL BLOOD BASE EXCESS 3.7 mmol/L; ARTERIAL BLOOD H2CO3 1.31 mmol/L (1.05-1.35); ARTERIAL BLOOD HCO3 28.4 mmol/L (20-24); ARTERIAL BLOOD O2 SATURATION 92.6 % (94-98); ARTERIAL BLOOD PCO2 43.4 mmHg (35-45); ARTERIAL BLOOD PH 7.43 (7.35-7.45); ARTERIAL BLOOD PO2 62.6 mmHg (80-100); ARTERIAL BLOOD TOTAL CO2 29.8 mmol/L (21-25)
[2019-06-13 22:56] LABS: ARTERIAL BLOOD FIO2 2L
[2019-06-14] MEDS ORDERED: HYDRALAZINE HCL INJ/PF 20 MG/1 ML SDV IV PRN (00:46)
[2019-06-14] MEDS ORDERED: LEVALBUTEROL HCL NEB 0.63 MG/3 ML AMPUL NEB PRN (00:46)
[2019-06-14] MEDS ORDERED: ACETAMINOPHEN 325 MG TABLET PO PRN (00:46)
[2019-06-14] MEDS ORDERED: NALBUPHINE HCL INJ 10 MG/1 ML AMPULE IV PRN ×3 (00:46→00:58)
[2019-06-14] MEDS ORDERED: GLUCAGON,HUMAN RECOMB 1 MG INJ IM PRN (00:51)
[2019-06-14] MEDS ORDERED: DEXTROSE 50%-WATER 25 GM/50 ML DISP.SYRIN IV PRN ×2 (00:51)
[2019-06-14] MEDS ORDERED: DEXTROSE 40% GEL 15 GM TUBE PO PRN ×2 (00:51)
[2019-06-14] MEDS ORDERED: MAG HYDROX/AL HYDROX/SIMETH SUSP 30 ML UDCUP PO PRN (00:57)
[2019-06-14] MEDS ORDERED: MAGNESIUM HYDROXIDE SUSP 30 ML UDCUP PO PRN (00:57)
[2019-06-14] MEDS ORDERED: PROMETHAZINE HCL INJ 25 MG/1 ML VIAL IV PRN (00:57)
--- NOTE | 2019-06-14 02:31 | PDOC H&P ---
History of Present Illness Admission Date/PCP: 06/14/2019 00:03 JENNIFER MEYER Patient complains of: Dyspnea History of Present Illness: ADDIE STEWART is a 58 year old female who presented to the emergency room with a 1 day history of dyspnea. Patient admits a 1 day history of progressively worsening dyspnea, becoming severe on the evening of 06/13/2019, accompanied by wheezing and a severe paroxysmal cough with one episode of posttussive emesis. Her dyspnea is worsened by exertion. She denies other associated or accompanying signs and symptoms. She admits prior similar episodes with previous exacerbations of her COPD. She denies identification of any additional aggravating or ameliorating factors for her dyspnea. In the emergency room she was found to have a chest x-ray free of acute cardiopulmonary changes. She was found to be hypoxic with a PO2 of 62 on room air. She was therefore treated with supplemental oxygen, IV Solu-Medrol, nebulizer therapy and admitted to the hospital for further evaluation and treatment. Past Medical History Cardiac Medical History: Reports: Hypertension Denies: Atrial Fibrillation, Coronary Artery Disease, DVT, Myocardial Infarction, Pulmonary Embolism Pulmonary Medical History: Reports: Asthma, Bronchitis, Chronic Obstructive Pulmonary Disease (COPD), Pneumonia, Respiratory Failure Denies: Intubation EENT Medical History: Denies: Cataracts, Ears - Hearing aids Neurological Medical History: Denies: Hemorrhagic CVA, Seizures Endocrine Medical History: Reports: Diabetes Mellitus Type 2 Denies: Diabetes Mellitus Type 1, Hyperthyroidism, Hypothyroidism Renal/ Medical History: Denies: Chronic Kidney Disease, Nephrolithiasis Malignancy Medical History: Reports: None GI Medical History: Reports: Gastroesophageal Reflux Disease Denies: Cirrhosis, Crohn's Disease, Hepatitis, Ulcerative Colitis Musculoskeltal Medical History: Denies: Arthritis, Gout Skin Medical History: Denies: Eczema, Psoriasis Psychiatric Medical History: Denies: Alcohol Dependency, Depression, Substance Abuse, Tobacco Dependency Traumatic Medical History: Reports: None Hematology: Denies: Anemia, Bleeding Tendencies Infectious Medical History: Reports: None Past Surgical History Past Surgical History: Reports: None Social History Information Source: Patient Lives with: Spouse/Significant other Smoking Status: Former Smoker Electronic Cigarette use?: No Frequency of Alcohol Use: None Hx Recreational Drug Use: No Drugs: None Hx Prescription Drug Abuse: No - Advance Directive Resuscitation Status: Full Code Surrogate healthcare decision maker:: Saulo Stewart Family History Family History: COPD, DM, Hypertension Parental Family History Reviewed: Yes Children Family History Reviewed: No Sibling(s) Family History Reviewed.: Yes Medication/Allergy Home Medications: Acetaminophen [Tylenol] 650 mg PO Q4HP PRN 01/30/19 Albuterol Sulfate [Proair HFA Inhalation Aerosol 8.5 gm MDI] 1 puff IH Q4HP PRN 01/30/19 Albuterol Sulfate [Ventolin 0.083% Neb 2.5 mg/3 mL Ampul] 1 vial NEB RTQ8HP PRN 01/30/19 Budesonide [Pulmicort Neb 0.5 mg/2 ml Ampul] 0.5 mg NEB RTQ12 01/30/19 Budesonide/Formoterol Fumarate [Symbicort HFA 160-4.5 mcg Inhaler 6 gm] 2 puff IH Q12 01/30/19 Carvedilol [Coreg 3.125 mg Tablet] 3.125 mg PO Q12 01/30/19 Diltiazem HCl [Cardizem Cd 240 mg Capsule.cr] 240 mg PO Q12 01/30/19 Docusate Sodium [Colace 100 mg Capsule] 100 mg PO DAILY 01/30/19 Ipratropium/Albuterol Sulfate [Duoneb 3 ml Ampul] 3 ml NEB RTQ6HP PRN 01/30/19 Metformin HCl [Glucophage] 1,000 mg PO BID 01/30/19 Montelukast Sodium [Singulair 10 mg Tablet] 10 mg PO QHS 01/30/19 Azithromycin [Zithromax 250 mg Tablet] 500 mg PO QHS #7 tablet 02/03/19 Carvedilol [Coreg 3.125 mg Tablet] 3.125 mg PO Q12 #0 tablet 02/03/19 Prednisone [Deltasone 20 mg Tablet] 2 tab PO DAILY 5 Days tablet 04/10/19 Prednisone [Deltasone 20 mg Tablet] 20 mg PO BID #14 tablet 04/28/19 Allergies/Adverse Reactions: benzonatate [From Tesjacque Blanco] Allergy (Verified 04/10/19 11:21) RCING HEARTBEART NSAIDS (Non-Steroidal Anti-Inflamma Allergy (Verified 04/10/19 11:21) RACING HEARTBEAT Review of Systems Constitutional: ABSENT: chills, fever(s) Eyes: ABSENT: visual disturbances, other - Eye pain Ears: ABSENT: hearing changes, other - Ear pain Nose, Mouth, and Throat: ABSENT: headache(s), mouth pain, sore throat Cardiovascular: PRESENT: as per HPI, dyspnea on exertion. ABSENT: chest pain, orthropnea, palpitations Respiratory: PRESENT: as per HPI, cough, dyspnea. ABSENT: hemoptysis, sputum Gastrointestinal: PRESENT: as per HPI, vomiting - Posttussive emesis. ABSENT: abdominal pain, constipation, diarrhea, nausea Genitourinary: ABSENT: dysuria, hematuria Musculoskeletal: ABSENT: back pain, joint swelling, muscle weakness Integumentary: ABSENT: pruritus, rash Neurological: ABSENT: confusion, convulsions, focal weakness, memory loss, syncope Psychiatric: ABSENT: anxiety, depression Endocrine: ABSENT: cold intolerance, heat intolerance Hematologic/Lymphatic: ABSENT: easy bleeding, easy bruising Allergic/Immunologic: ABSENT: seasonal rhinorrhea Physical Exam Vital Signs: Temp Pulse Resp BP Pulse Ox 98.1 F 119 H 21 H 111/71 94 06/13/19 23:06 06/13/19 20:30 06/13/19 23:06 06/13/19 23:01 06/13/19 23:06 Intake & Output 06/12/19 06/13/19 06/14/19 23:59 23:59 23:59 Weight 70.2 kg General appearance: PRESENT: no acute distress, cooperative Head exam: PRESENT: atraumatic, normocephalic Eye exam: PRESENT: conjunctiva pink. ABSENT: conjunctival injection, scleral icterus Ear exam: PRESENT: normal external ear exam. ABSENT: bleeding, drainage Mouth exam: PRESENT: dry mucosa, neck supple Neck exam: ABSENT: thyromegaly, tracheal deviation Respiratory exam: PRESENT: decreased breath sounds - Minimally decreased breath sounds throughout all preciado, prolonged expiratory phas - Moderate expiratory w heezes in all preciado mildly prolonged expiratory phase throughout all preciado, symmetrical, tachypnea, wheezes Cardiovascular exam: ABSENT: clicks, gallop, rubs Pulses: PRESENT: normal radial pulses, normal dorsalis pedis pul Vascular exam: PRESENT: normal capillary refill. ABSENT: pallor GI/Abdominal exam: PRESENT: normal bowel sounds, soft Rectal exam: PRESENT: deferred Extremities exam: ABSENT: joint swelling, pedal edema Musculoskeletal exam: ABSENT: deformity, dislocation Neurological exam: PRESENT: alert, oriented to person, oriented to place, oriented to time, oriented to situation, CN II-XII grossly intact. ABSENT: motor sensory deficit Psychiatric exam: PRESENT: appropriate affect, normal mood Skin exam: PRESENT: dry, intact, warm. ABSENT: jaundice, rash, urticaria Results Laboratory Results: 06/13/19 20:20 06/13/19 20:20 06/13/19 06/13/19 06/13/19 20:20 20:20 20:20 WBC 12.9 H RBC 4.94 Hgb 12.7 Hct 38.0 MCV 77 L MCH 25.8 L MCHC 33.5 RDW 13.9 Plt Count 426 Seg Neutrophils % 65.6 Carbonic Acid HCO3/H2CO3 Ratio ABG pH ABG pCO2 ABG pO2 ABG HCO3 ABG O2 Saturation ABG Base Excess VBG pH 7.42 VBG pCO2 47.2 VBG HCO3 29.8 VBG Base Excess 4.4 FiO2 Sodium 144.5 Potassium 3.5 L Chloride 105 Carbon Dioxide 29 Anion Gap 11 BUN 13 Creatinine 0.70 Est GFR ( Amer) > 60 Glucose 114 H Calcium 10.2 Total Bilirubin 0.6 AST 21 Alkaline Phosphatase 111 Total Protein 7.6 Albumin 4.5 06/13/19 22:40 WBC RBC Hgb Hct MCV MCH MCHC RDW Plt Count Seg Neutrophils % Carbonic Acid 1.31 HCO3/H2CO3 Ratio 21:1 ABG pH 7.43 ABG pCO2 43.4 ABG pO2 62.6 L ABG HCO3 28.4 H ABG O2 Saturation 92.6 L ABG Base Excess 3.7 VBG pH VBG pCO2 VBG HCO3 VBG Base Excess FiO2 2L Sodium Potassium Chloride Carbon Dioxide Anion Gap BUN Creatinine Est GFR ( Amer) Glucose Calcium Total Bilirubin AST Alkaline Phosphatase Total Protein Albumin 06/13/19 20:20 Troponin I < 0.012 Impressions: Chest X-Ray 06/13/19 19:51 IMPRESSION: Unremarkable chest x-ray. Assessment and Plan - Diagnosis (1) Acute exacerbation of chronic obstructive pulmonary disease (COPD) Is this a current diagnosis for this admission?: Yes (2) Acute respiratory failure with hypoxemia Is this a current diagnosis for this admission?: Yes (3) GERD (gastroesophageal reflux disease) Qualifiers: Esophagitis presence: without esophagitis Qualified Code(s): K21.9 - Gastro-esophageal reflux disease without esophagitis Is this a current diagnosis for this admission?: Yes (4) Diabetes mellitus type 2 in nonobese Is this a current diagnosis for this admission?: Yes (5) Hypertension Qualifiers: Hypertension type: essential hypertension Qualified Code(s): I10 - Essential (primary) hypertension Is this a current diagnosis for this admission?: Yes (6) Hypokalemia Is this a current diagnosis for this admission?: Yes - Plan Summary Summary: Patient will be admitted to medical floor and routine supportive and symptomatic cares will be provided. She will be treated with aggressive pulmonary toilet utilizing nebulized Xopenex, Atrovent and Pulmicort. She will receive IV Solu- Medrol and a 3 dose burst. She will use Nubain 5 to 10 mg IV every 3 hours as needed pain utilizing a sliding scale for dosing. Before meals and at bedtime Accu-Cheks will be obtained and the patient will be continued on a diabetic diet as well as a cardiac diet. Sliding scale insulin will be used to cover hypoglycemic episodes and a hypoglycemic protocol will be in place. Patient will be placed on her usual medications for control of her chronic medical problems as appropriate. Hypokalemia will be addressed with oral repletion. A hemoglobin A1c, CBC and metabolic profile will be assessed in the morning. - Time Time Spent with patient: 25-34 minutes Medications reviewed and adjusted accordingly: Yes Anticipated discharge: Home - Inpatient Certification Based on my medical assessment, after consideration of the patient's comorbidities, presenting symptoms, or acuity I expect that the services needed warrant INPATIENT care.: Yes I certify that my determination is in accordance with my understanding of Medicare's requirements for reasonable and necessary INPATIENT services [42 CFR 412.3e].: Yes Medical Necessity: Need Close Monitoring Due to Risk of Patient Decompensation, Need for Nebulizer Therapy and Monitoring of Response, Risk of Complication if Not Cared For in Hospital
[2019-06-14] MEDS: HEPARIN SOD (PORCINE) 5,000 UNIT/ML 1 ML VIAL SUBCUT SCH ×3 (06:20→22:53)
[2019-06-14] MEDS: METHYLPREDNISOLONE INJ 40 MG/1 ML SDV IV SCH ×4 (06:20→22:46)
[2019-06-14] MEDS: METFORMIN HCL 500 MG TABLET PO SCH ×2 (07:40→16:38)
[2019-06-14] MEDS: POTASSIUM CHLORIDE 10 MEQ TABLET.ER PO SCH ×3 (07:41→16:39)
[2019-06-14] MEDS: LEVALBUTEROL HCL NEB 1.25 MG/3 ML AMPUL NEB SCH ×2 (07:42→16:51)
[2019-06-14] MEDS: BUDESONIDE NEB 0.5 MG/2 ML AMPUL NEB SCH ×2 (07:42→21:30)
[2019-06-14] MEDS: IPRATROPIUM BROMIDE 0.02% NEB 0.5 MG/2.5 ML AMPUL NEB SCH ×2 (07:42→16:51)
[2019-06-14] MEDS: INSULIN REG, HUMAN 100 UNIT/ML 3 ML VIAL (PYX) SUBCUT SCH ×4 (07:49→22:46)
[2019-06-14] MEDS: METOPROLOL SUCCINATE 25 MG TAB.SR.24H PO SCH ×2 (10:24→22:46)
[2019-06-14] MEDS: FAMOTIDINE 20 MG TABLET PO SCH ×2 (10:24→22:46)
[2019-06-14] MEDS: DOCUSATE SODIUM 100 MG CAPSULE PO SCH ×2 (10:24→18:08)
[2019-06-14] MEDS: DILTIAZEM HCL 240 MG CAPSULE.CR PO SCH ×2 (10:25→22:45)
[2019-06-14] MEDS ORDERED: METHYLPREDNISOLONE INJ 40 MG/1 ML SDV IV SCH (11:30)
[2019-06-14] MEDS ORDERED: MONTELUKAST SODIUM 10 MG TABLET PO SCH (22:00)
[2019-06-15] MEDS: LEVALBUTEROL HCL NEB 1.25 MG/3 ML AMPUL NEB SCH ×2 (00:46→08:27)
[2019-06-15] MEDS: IPRATROPIUM BROMIDE 0.02% NEB 0.5 MG/2.5 ML AMPUL NEB SCH ×2 (00:46→08:27)
[2019-06-15] MEDS: HEPARIN SOD (PORCINE) 5,000 UNIT/ML 1 ML VIAL SUBCUT SCH (05:15)
[2019-06-15 05:34] LABS: HEMATOCRIT 34.1 % (36.0-47.0); HEMOGLOBIN 11.4 g/dL (12.0-15.5); MEAN CORPUSCULAR HEMOGLOBIN 26.2 pg (27.0-33.4); MEAN CORPUSCULAR HGB CONC 33.6 g/dL (32.0-36.0); MEAN CORPUSCULAR VOLUME 78 fl (80-97); PLATELET COUNT 373 10^3/uL (150-450); RED BLOOD COUNT 4.37 10^6/uL (3.72-5.28); RED CELL DISTRIBUTION WIDTH 14.2 % (11.5-14.0); WHITE BLOOD COUNT 10.2 10^3/uL (4.0-10.5)
[2019-06-15 05:55] LABS: ANION GAP 12 (5-19); BLOOD UREA NITROGEN 16 mg/dL (7-20); CALCIUM 9.7 mg/dL (8.4-10.2); CARBON DIOXIDE 24 mmol/L (22-30); CHLORIDE 107 mmol/L (98-107); GLUCOSE 197 mg/dL (75-110)
[2019-06-15] MEDS: POTASSIUM CHLORIDE 10 MEQ TABLET.ER PO SCH ×2 (08:03→13:39)
[2019-06-15] MEDS: METFORMIN HCL 500 MG TABLET PO SCH (08:07)
[2019-06-15] MEDS: INSULIN REG, HUMAN 100 UNIT/ML 3 ML VIAL (PYX) SUBCUT SCH ×2 (08:07→12:16)
[2019-06-15] MEDS: BUDESONIDE NEB 0.5 MG/2 ML AMPUL NEB SCH (08:27)
[2019-06-15] MEDS: DILTIAZEM HCL 240 MG CAPSULE.CR PO SCH (09:46)
[2019-06-15] MEDS: FAMOTIDINE 20 MG TABLET PO SCH (09:46)
[2019-06-15] MEDS: METOPROLOL SUCCINATE 25 MG TAB.SR.24H PO SCH (09:46)
[2019-06-15] MEDS: DOCUSATE SODIUM 100 MG CAPSULE PO SCH (09:47)
[2019-06-15] MEDS: METHYLPREDNISOLONE INJ 40 MG/1 ML SDV IV SCH (09:47)
[2019-06-15] MEDS ORDERED: GUAIFENESIN 600 MG TABLET.SA PO SCH (10:00)
[2019-06-15 14:18] VITALS: BP 129/71
--- NOTE | 2019-06-16 18:43 | PDOC DISCHARGE SUMMARY ---
Impression - Admit/DC Date/PCP Admission Date/Primary Care Provider: 06/14/19 00:37 JENNIFER MEYER Discharge Date: 06/15/19 - Discharge Diagnosis (1) Acute exacerbation of chronic obstructive pulmonary disease (COPD) Is this a current diagnosis for this admission?: Yes (2) Acute respiratory failure with hypoxemia Is this a current diagnosis for this admission?: Yes (3) GERD (gastroesophageal reflux disease) Is this a current diagnosis for this admission?: Yes (4) Hypertension Is this a current diagnosis for this admission?: Yes - Assessment Summary: Patient will be admitted to medical floor and routine supportive and symptomatic cares will be provided. She will be treated with aggressive pulmonary toilet utilizing nebulized Xopenex, Atrovent and Pulmicort. She will receive IV Solu- Medrol and a 3 dose burst. She will use Nubain 5 to 10 mg IV every 3 hours as needed pain utilizing a sliding scale for dosing. Before meals and at bedtime Accu-Cheks will be obtained and the patient will be continued on a diabetic diet as well as a cardiac diet. Sliding scale insulin will be used to cover hypoglycemic episodes and a hypoglycemic protocol will be in place. Patient will be placed on her usual medications for control of her chronic medical problems as appropriate. Hypokalemia will be addressed with oral repletion. A hemoglobin A1c, CBC and metabolic profile will be assessed in the morning. - Additional Information Resuscitation Status: Full Code Discharge Diet: As Tolerated Discharge Activity: Activity As Tolerated, Balance Activity w/Rest Referrals: VILMA FIGUEROA FNP-C [ALLIED HEALTH PROFESSIONAL] - 06/28/19 1:00 pm Prescriptions: Prednisone [Deltasone 20 mg Tablet] 20 mg PO BID 5 Days #10 tablet Tiotropium [place] [Spiriva Handihaler 5 Cap/Kit (18 Mcg/Cap)] 1 cap IH DAILY #20 capsule Home Medications: Budesonide/Formoterol Fumarate [Symbicort HFA 160-4.5 mcg Inhaler 6 gm] 2 puff IH Q12 06/14/19 Carvedilol [Coreg 3.125 mg Tablet] 3.125 mg PO Q12 06/14/19 Diltiazem HCl [Cardizem Cd 240 mg Capsule.cr] 240 mg PO Q12 06/14/19 Levalbuterol HCl [Xopenex Neb 1.25 mg/3 ml Ampul] 1.25 mg NEB RTQ8HP PRN 06/14/19 Levalbuterol Tartrate [Levalbuterol Tartrate Hfa] 2 puff IH Q4HP PRN 06/14/19 Metformin HCl [Glucophage] 1,000 mg PO BID 06/14/19 Montelukast Sodium [Singulair 10 mg Tablet] 10 mg PO QHS 06/14/19 Prednisone [Deltasone 20 mg Tablet] 20 mg PO BID 5 Days #10 tablet 06/15/19 Tiotropium [place] [Spiriva Handihaler 5 Cap/Kit (18 Mcg/Cap)] 1 cap IH DAILY #20 capsule 06/15/19 History of Present Illiness History of Present Illness: Admitting hospitalist's H&P: ADDIE STEWART is a 58 year old female who presented to the emergency room with a 1 day history of dyspnea. Patient admits a 1 day history of progressively worsening dyspnea, becoming severe on the evening of 06/13/2019, accompanied by wheezing and a severe paroxysmal cough with one episode of posttussive emesis. Her dyspnea is worsened by exertion. She denies other associated or accompanying signs and symptoms. She admits prior similar episodes with previous exacerbations of her COPD. She denies identification of any additional aggravating or ameliorating factors for her dyspnea. In the emergency room she was found to have a chest x-ray free of acute cardiopulmonary changes. She was found to be hypoxic with a PO2 of 62 on room air. She was therefore treated with supplemental oxygen, IV Solu-Medrol, nebulizer therapy and admitted to the hospital for further evaluation and treatment. Hospital Course Hospital Course: Patient was admitted for COPD exacerbation. She was started on IV steroids and scheduled breathing treatments. She significantly improved overnight with steroids and breathing treatments. She returned to her baseline the next day and was able to ambulate the hallway without any issues. She will be resumed on her Symbicort. She did say that she stopped using her Spiriva. She was counseled to resume using the Spiriva again. She will be prescribed a 5 more days of prednisone. Physical Exam Vital Signs: Temp Pulse Resp BP Pulse Ox 97.9 F 106 H 16 129/71 H 99 06/15/19 14:03 06/15/19 14:03 06/15/19 14:03 06/15/19 14:03 06/15/19 14:03 Intake & Output 06/14/19 06/15/19 06/16/19 06:59 06:59 06:59 Intake Total 1163 480 Balance 1163 480 Weight 154 lb 12.232 oz 158 lb 11.725 oz General appearance: PRESENT: no acute distress, well-developed, well-nourished Head exam: PRESENT: atraumatic, normocephalic Eye exam: PRESENT: conjunctiva pink, EOMI, PERRLA. ABSENT: scleral icterus Ear exam: PRESENT: normal external ear exam Mouth exam: PRESENT: moist, tongue midline Neck exam: ABSENT: carotid bruit, JVD, lymphadenopathy, thyromegaly Respiratory exam: PRESENT: clear to auscultation connor. ABSENT: rales, rhonchi, wheezes Cardiovascular exam: PRESENT: RRR. ABSENT: diastolic murmur, rubs, systolic murmur Pulses: PRESENT: normal dorsalis pedis pul GI/Abdominal exam: PRESENT: normal bowel sounds, soft. ABSENT: distended, guarding, mass, organolmegaly, rebound, tenderness Rectal exam: PRESENT: deferred Extremities exam: PRESENT: full ROM. ABSENT: calf tenderness, clubbing, pedal edema Neurological exam: PRESENT: alert, awake, oriented to person, oriented to place, oriented to time, oriented to situation, CN II-XII grossly intact. ABSENT: motor sensory deficit Results Laboratory Results: WBC 10.2 10^3/uL (4.0-10.5) 06/15/19 03:51 RBC 4.37 10^6/uL (3.72-5.28) 06/15/19 03:51 Hgb 11.4 g/dL (12.0-15.5) L 06/15/19 03:51 Hct 34.1 % (36.0-47.0) L 06/15/19 03:51 MCV 78 fl (80-97) L 06/15/19 03:51 MCH 26.2 pg (27.0-33.4) L 06/15/19 03:51 MCHC 33.6 g/dL (32.0-36.0) 06/15/19 03:51 RDW 14.2 % (11.5-14.0) H 06/15/19 03:51 Plt Count 373 10^3/uL (150-450) 06/15/19 03:51 Lymph % (Auto) 12.3 % (13-45) L 06/13/19 20:20 [place] % (Auto) 10.1 % (3-13) 06/13/19 20:20 Eos % (Auto) 11.4 % (0-6) H 06/13/19 20:20 Baso % (Auto) 0.6 % (0-2) 06/13/19 20:20 Absolute Neuts (auto) 8.4 10^3/uL (1.7-8.2) H 06/13/19 20:20 Absolute Lymphs (auto) 1.6 10^3/uL (0.5-4.7) 06/13/19 20:20 Absolute Monos (auto) 1.3 10^3/uL (0.1-1.4) 06/13/19 20:20 Absolute Eos (auto) 1.5 10^3/uL (0.0-0.6) H 06/13/19 20:20 Absolute Basos (auto) 0.1 10^3/uL (0.0-0.2) 06/13/19 20:20 Seg Neutrophils % 65.6 % (42-78) 06/13/19 20:20 Carbonic Acid 1.31 mmol/L (1.05-1.35) 06/13/19 22:40 HCO3/H2CO3 Ratio 21:1 06/13/19 22:40 ABG pH 7.43 (7.35-7.45) 06/13/19 22:40 ABG pCO2 43.4 mmHg (35-45) 06/13/19 22:40 ABG pO2 62.6 mmHg (80-100) L 06/13/19 22:40 ABG HCO3 28.4 mmol/L (20-24) H 06/13/19 22:40 ABG Total CO2 29.8 mmol/L (21-25) H 06/13/19 22:40 ABG O2 Saturation 92.6 % (94-98) L 06/13/19 22:40 ABG Base Excess 3.7 mmol/L 06/13/19 22:40 VBG pH 7.42 (7.30-7.42) 06/13/19 20:20 VBG pCO2 47.2 mmHg (35-63) 06/13/19 20:20 VBG HCO3 29.8 mmol/L (20-32) 06/13/19 20:20 VBG Base Excess 4.4 mmol/L 06/13/19 20:20 FiO2 2L 06/13/19 22:40 Sodium 143.1 mmol/L (137-145) 06/15/19 03:51 Potassium 5.0 mmol/L (3.6-5.0) 06/15/19 03:51 Chloride 107 mmol/L (98-107) 06/15/19 03:51 Carbon Dioxide 24 mmol/L (22-30) 06/15/19 03:51 Anion Gap 12 (5-19) 06/15/19 03:51 BUN 16 mg/dL (7-20) 06/15/19 03:51 Creatinine 0.60 mg/dL (0.52-1.25) 06/15/19 03:51 Est GFR ( Amer) > 60 (>60) 06/15/19 03:51 Est GFR (MDRD) Non-Af > 60 (>60) 06/15/19 03:51 Glucose 197 mg/dL (75-110) H 06/15/19 03:51 POC Glucose 155 mg/dL (70-110) H 06/15/19 10:50 Hemoglobin A1c % 7.2 % (4.7-6.0) H 06/15/19 03:51 Calcium 9.7 mg/dL (8.4-10.2) 06/15/19 03:51 Magnesium 2.2 mg/dL (1.6-2.3) 06/15/19 03:51 Total Bilirubin 0.6 mg/dL (0.2-1.3) 06/13/19 20:20 Direct Bilirubin 0.1 mg/dL (0.0-0.4) 06/13/19 20:20 Neonat Total Bilirubin Not Reportable 06/13/19 20:20 Neonat Direct Bilirubin Not Reportable 06/13/19 20:20 Neonat Indirect Bili Not Reportable 06/13/19 20:20 AST 21 U/L (14-36) 06/13/19 20:20 ALT 17 U/L (<35) 06/13/19 20:20 Alkaline Phosphatase 111 U/L (38-126) 06/13/19 20:20 Troponin I < 0.012 ng/mL 06/13/19 20:20 Total Protein 7.6 g/dL (6.3-8.2) 06/13/19 20:20 Albumin 4.5 g/dL (3.5-5.0) 06/13/19 20:20 Influenza A (Rapid) NEGATIVE (NEGATIVE) 06/13/19 20:26 Influenza B (Rapid) NEGATIVE (NEGATIVE) 06/13/19 20:26 06/13/19 20:20 Troponin I < 0.012 Impressions: Chest X-Ray 06/13/19 19:51 IMPRESSION: Unremarkable chest x-ray. Stroke Is this a Stroke Patient?: No Acute Heart Failure - Is this a Heart Failure Patient?: No
== END 2019-06-15 14:30 | disposition home or self-care (01) | DRG 190 ==
LOC: ER 19:20 → EH 06-14 00:37 → 4N 06-14 01:28
PROVIDERS: ADMIT Emergency Medicine; ATTEND Emergency Medicine
DX: J44.1 Chronic obstructive pulmonary disease with (acute) exacerbation (principal); J96.01 Acute respiratory failure with hypoxia; K21.9 Gastro-esophageal reflux disease without esophagitis; I10 Essential (primary) hypertension; E11.9 Type 2 diabetes mellitus without complications; E87.6 Hypokalemia; Z87.891 Personal history of nicotine dependence; Z83.3 Family history of diabetes mellitus; Z83.6 Family history of other diseases of the respiratory system; Z79.899 Other long term (current) drug therapy; Z79.84 Long term (current) use of oral hypoglycemic drugs; Z88.8 Allergy status to other drugs, medicaments and biological substances
CPT/HCPCS: 36415; 71045; 80048; 80053; 82803; 82962; 83036; 83735; 84484; 85025; 85027; 87804; 93005; 93010; 94640; 96374; 99285; J1815; J2920; J2930; J3490; J7620

== ENCOUNTER → 2019-06-16 | Outpatient (CLI) | payer MEDICAID, MEDICARE ==
--- NOTE | 2019-06-16 15:21 | RADIOLOGY REPORT (SQ) ---
EXAM DESCRIPTION: CT SINUSES FOR ENT COMPLETED DATE/TIME: 06/16/2019 9:47 am REASON FOR STUDY: NASAL POLYP, UNSPECIFIED J33.9 NASAL POLYP, UNSPECIFIED COMPARISON: None. TECHNIQUE: Noncontrast scanning through the paranasal sinuses using bone algorithm. Reconstructed MPR images reviewed. All images stored on PACS. All CT scanners at this facility use dose modulation, iterative reconstruction, and/or weight based d osing when appropriate to reduce radiation dose to as low as reasonably achievable (ALARA). [facility]: Dose Right [facility]: CareDose [facility]: Dose Right [facility]: Teradose 4D [facility]: OpenBook RADIATION DOSE: 47.4mGy. LIMITATIONS: None. FINDINGS: Right sinuses and drainage pathways: Post-surgical changes: None. Frontal sinus: Opacified Frontoethmoidal Recess: Opacified Anterior Ethmoid Sinuses: Opacified Posterior Ethmoid Sinuses: Opacified Sphenoid Sinus: Circumferential mucous membrane thickening Sphenoethmoidal Recess: Opacified Maxillary Sinus: Circumferential mucous membrane thickening Ostiomeatal Complex: Opacified on coronal images 49 through 62 Left Sinuses and Drainage Pathways: Post-Surgical Changes: None. Frontal Sinus: Opacified Frontoethmoidal Recess: Opacified Anterior Ethmoid Sinuses: Opacified Posterior Ethmoid Sinuses: Opacified Sphenoid Sinus: Circumferential mucous membrane thickening Sphenoethmoidal Recess: Opacified Maxillary Sinus: Circumferential mucous membrane thickening Ostiomeatal Complex: Opacified on coronal images 58 through 78. Right Olfactory Fossa: Small polyps anterior nasal cavity Left Olfactory Fossa: Small polyps anterior nasal cavity Middle Turbinate Scarlet Bullosa: No. Paradoxical Middle Turbinate: No. Atelectatic Uncinated Process: No. Frontal Lynette Cell Type I: No. Frontal Lynette Cell Type II: No. Interfrontal Sinus Septal Cell: None. Supra-Orbital Ethmoid: Bilaterally Frontal Bullar Cell: None. Suprabullar Bullar Cell: None. Sphenoethmoidal ([place]) Cell: None. Pneumatization of the Anterior Clinoid Processes: No Hypoplastic Maxillary Sinus: None. Osteoneogenesis: None. Bone Dehiscence:None. Nasal Cavity: Normal. Nasal Septum: Midline Anatomic Variants: Right Vidian Canal: Normal. Left Vidian Canal: Normal. There is cerumen in the left external auditory canal IMPRESSION: Pansinusitis TECHNICAL DOCUMENTATION: JOB ID: [id number] Quality ID # [id number]: Final reports with documentation of one or more dose reduction techniques (e.g., Au tomated exposure control, adjustment of the mA and/or kV according to patient size, use of iterative reconstruction technique) 2010 [employer]- All Rights Reserved Reading location - IP/workstation name: [email or web address]
== END ==
LOC: RAD 09:31
PROVIDERS: ATTEND Otolaryngology
DX: J33.9 Nasal polyp, unspecified (principal)
CPT/HCPCS: 70486

== ENCOUNTER 2019-06-21 21:18 | Inpatient (IN) | payer MEDICARE ==
[2019-06-21] MEDS ORDERED: IPRATROPIUM/ALBUTEROL 0.5-2.5 MG/3 ML AMPUL NEB ONE (21:56)
--- NOTE | 2019-06-21 21:58 | ER Document Report ---
ED Medical Screen (RME) - General Chief Complaint: Fever Stated Complaint: BODY ACHES Time Seen by Provider: 06/21/19 21:53 Primary Care Provider: BONIFACIO MELENDEZ FNP-C [Primary Care Provider] - Follow up as needed Mode of Arrival: Ambulatory Information source: Patient Notes: 58-year-old female presents emergency department with complaints of body aches pains. She did receive her flu vaccine this year. Reports she was recently admitted to the hospital for her asthma. Patient is wheezing. Heart rate is elevated with O2 sat 93. Respiratory rate even unlabored. Patient reports she still taking steroids. No complaints of vomiting diarrhea but reports history of feeling hot and then cold chills. I have greeted and performed a rapid initial assessment of this patient. A comprehensive ED assessment and evaluation of the patient, analysis of test results and completion of the medical decision making process will be conducted by additional ED providers. Dictation of this chart was performed using voice recognition software; therefore, there may be some unintended grammatical errors. TRAVEL OUTSIDE OF THE [place] IN LAST 30 DAYS: No - Related Data Allergies/Adverse Reactions: benzonatate [From [employer]] Allergy (Verified 04/10/19 11:21) RCING HEARTBEART NSAIDS (Non-Steroidal Anti-Inflamma Allergy (Verified 04/10/19 11:21) RACING HEARTBEAT Past Medical History - Past Medical History Cardiac Medical History: Reports: Hx Hypertension Denies: Hx Atrial Fibrillation, Hx Coronary Artery Disease, Hx DVT, Hx Heart Attack, Hx Pulmonary Embolism Pulmonary Medical History: Reports: Hx Asthma, Hx Bronchitis, Hx COPD, Hx Pneumonia, Hx Respiratory Failure Denies: Hx Intubation Neurological Medical History: Denies: Hx Cerebrovascular Accident, Hx Seizures Endocrine Medical History: Reports: Hx Diabetes Mellitus Type 2. Denies: Hx Diabetes Mellitus Type 1, Hx Hyperthyroidism, Hx Hypothyroidism Renal/ Medical History: Denies: Hx Peritoneal Dialysis GI Medical History: Reports: Hx Gastroesophageal Reflux Disease. Denies: Hx Cirrhosis, Hx Crohn's Disease, Hx Hepatitis, Hx Ulcerative Colitis Musculoskeltal Medical History: Denies Hx Arthritis, Denies Hx Gout Skin Medical History: Denies Hx Eczema, Denies Hx Psoriasis Psychiatric Medical History: Denies: Hx Depression Infectious Medical History: Denies: Hx Hepatitis - Immunizations Immunizations up to date: Yes Hx Diphtheria, Pertussis, Tetanus Vaccination: No Physical Exam - Vital signs Vitals: Temp Pulse Resp BP Pulse Ox 100.8 F H 132 H 22 H 122/77 93 06/21/19 21:52 06/21/19 21:52 06/21/19 21:52 06/21/19 21:52 06/21/19 21:52 Course - Vital Signs Vital signs: Temp Pulse Resp BP Pulse Ox 100.8 F H 132 H 22 H 122/77 93 06/21/19 21:55 06/21/19 21:52 06/21/19 21:55 06/21/19 21:52 06/21/19 21:55 Doctor's Discharge - Discharge Referrals: BONIFACIO MELENDEZ FNP-C [Primary Care Provider] - Follow up as needed
[2019-06-21 23:16] LABS: HEMATOCRIT 37.5 % (36.0-47.0); HEMOGLOBIN 12.5 g/dL (12.0-15.5); MEAN CORPUSCULAR HGB CONC 33.3 g/dL (32.0-36.0); MEAN CORPUSCULAR VOLUME 78 fl (80-97); PLATELET COUNT 373 10^3/uL (150-450); RED BLOOD COUNT 4.81 10^6/uL (3.72-5.28); RED CELL DISTRIBUTION WIDTH 14.4 % (11.5-14.0)
--- NOTE | 2019-06-21 23:17 | RADIOLOGY REPORT (SQ) ---
EXAM DESCRIPTION: XR CHEST 2 VIEWS COMPLETED DATE/TME: 06/21/2019 21:56 CLINICAL HISTORY: 58 years, Female, COUGH, SOB, BACK PAIN COMPARISON: 12-19 chest NUMBER OF VIEWS: 2 TECHNIQUE: 2 views of the chest LIMITATIONS: None. FINDINGS: Heart size is normal. Airspace opacities in the left perihilar region and left lung base consistent with pneumonia. No pneumothorax IMPRESSION: Left perihilar and left basilar pneumonia copyright 2010 [employer]- All Rights Reserved
[2019-06-21 23:34] LABS: ALBUMIN 3.9 g/dL (3.5-5.0); ALKALINE PHOSPHATASE 97 U/L (38-126); ANION GAP 14 (5-19); ASPARTATE AMINO TRANSFERASE 13 U/L (14-36); BILIRUBIN,TOTAL 0.7 mg/dL (0.2-1.3); BLOOD UREA NITROGEN 10 mg/dL (7-20); CARBON DIOXIDE 29 mmol/L (22-30); CHLORIDE 97 mmol/L (98-107); GLUCOSE 205 mg/dL (75-110); POTASSIUM 3.2 mmol/L (3.6-5.0); TOTAL PROTEIN 6.7 g/dL (6.3-8.2)
[2019-06-21 23:42] LABS: ABSOLUTE LYMPHOCYTES# (MANUAL) 2.9 10^3/uL (0.5-4.7); ABSOLUTE MONOCYTES # (MANUAL) 2.2 10^3/uL (0.1-1.4); BASOPHILS % (MANUAL) 0 % (0-2); EOSINOPHILS % (MANUAL) 0 % (0-6); LYMPHOCYTES % (MANUAL) 12 % (13-45); MONOCYTES % (MANUAL) 9 % (3-13); SEGMENTED NEUTROPHILS % (MAN) 79 % (42-78); TOTAL CELLS COUNTED 100
[2019-06-21 23:44] LABS: ANISOCYTOSIS SLIGHT; PLATELET COMMENT ADEQUATE
[2019-06-21 23:47] LABS: HYPOCHROMASIA SLIGHT; OVALOCYTES SLIGHT
[2019-06-22] MEDS ORDERED: LEVOFLOXACIN 750 MG/D5W RTU 750 MG/150 ML RTUPB IV ONE (00:59)
[2019-06-22] MEDS ORDERED: NORMAL SALINE 1000 ML 1,000 ML IV ONE (01:03)
[2019-06-22] MEDS ORDERED: GUAIFENESIN SYRP 200 MG/10 ML UDC PO ONE (01:09)
[2019-06-22] MEDS ORDERED: POTASSIUM CHLORIDE 10 MEQ TABLET.ER PO ONE (01:14)
[2019-06-22] MEDS ORDERED: ACETAMINOPHEN 325 MG TABLET PO ONE (01:20)
--- NOTE | 2019-06-22 01:20 | ER Document Report ---
ED General - General Chief Complaint: Fever Stated Complaint: BODY ACHES Time Seen by Provider: 06/21/19 21:53 Primary Care Provider: BONIFACIO MELENDEZ FNP-C [Primary Care Provider] - Follow up as needed Mode of Arrival: Ambulatory TRAVEL OUTSIDE OF THE [place] IN LAST 30 DAYS: No - HPI Notes: Patient is a 58-year-old female with a history of COPD who presents emergency department for evaluation of chills, cough, worsening shortness of breath. She is actually discharged from the hospital several days ago with a COPD exacerbation. She was sent home with steroids. She states that she has had hot and cold chills, body aches, and her cough is worsened. She has not been treated with antibiotics. She denies any chest pain associated with this. - Related Data Allergies/Adverse Reactions: benzonatate [From [employer]] Allergy (Verified 04/10/19 11:21) RCING HEARTBEART NSAIDS (Non-Steroidal Anti-Inflamma Allergy (Verified 04/10/19 11:21) RACING HEARTBEAT Past Medical History - General Information source: Patient - Social History Smoking Status: Unknown if Ever Smoked Family History: COPD, DM, Hypertension Patient has suicidal ideation: No Patient has homicidal ideation: No - Past Medical History Cardiac Medical History: Reports: Hx Hypertension Denies: Hx Atrial Fibrillation, Hx Coronary Artery Disease, Hx DVT, Hx Heart Attack, Hx Pulmonary Embolism Pulmonary Medical History: Reports: Hx Asthma, Hx Bronchitis, Hx COPD, Hx Pneumonia, Hx Respiratory Failure Denies: Hx Intubation Neurological Medical History: Denies: Hx Cerebrovascular Accident, Hx Seizures Endocrine Medical History: Reports: Hx Diabetes Mellitus Type 2. Denies: Hx Diabetes Mellitus Type 1, Hx Hyperthyroidism, Hx Hypothyroidism Renal/ Medical History: Denies: Hx Peritoneal Dialysis GI Medical History: Reports: Hx Gastroesophageal Reflux Disease. Denies: Hx Cirrhosis, Hx Crohn's Disease, Hx Hepatitis, Hx Ulcerative Colitis Musculoskeletal Medical History: Denies Hx Arthritis, Denies Hx Gout Skin Medical History: Denies Hx Eczema, Denies Hx Psoriasis Psychiatric Medical History: Denies: Hx Depression Infectious Medical History: Denies: Hx Hepatitis - Immunizations Immunizations up to date: Yes Hx Diphtheria, Pertussis, Tetanus Vaccination: No Review of Systems - Review of Systems Constitutional: See HPI EENT: No symptoms reported Cardiovascular: No symptoms reported Respiratory: See HPI Gastrointestinal: No symptoms reported Genitourinary: No symptoms reported Musculoskeletal: No symptoms reported Skin: See HPI Hematologic/Lymphatic: No symptoms reported Neurological/Psychological: No symptoms reported Physical Exam - Vital signs Vitals: Temp Pulse Resp BP Pulse Ox 100.8 F H 132 H 22 H 122/77 93 06/21/19 21:52 06/21/19 21:52 06/21/19 21:52 06/21/19 21:52 06/21/19 21:52 - Notes Notes: Is a 58-year-old female who appears older than her stated age in no acute d istress. Vital signs reviewed, please refer to chart. Head is normocephalic, atraumatic. Pupils equal round, reactive to light. Neck is supple without meningismus. Heart is regular rate and rhythm. Lungs reveal expiratory wheezes throughout and diminished breath sounds in the left base. Abdomen is soft, nontender, normoactive bowel sounds throughout. Extremities without cyanosis, clubbing. Posterior calves are nontender. Peripheral pulses are equal. Skin is warm and dry. Patient is awake, alert, neurological exam is nonfocal. Course - Re-evaluation Re-evalutation: 06/22/19 01:22 Patient presents emergency department for evaluation. On arrival she is febrile. She is a 24,000 white count. Of course this could be in part related to the steroid treatment, but in light of her fever and the pneumonia, she does meet sepsis criteria. She is also markedly tachycardic. Blood cultures were obtained. She is given IV Levaquin. She is given IV fluids at 30 cc/kg. Will contact medicine for admission. Influenza pending. 06/22/19 01:[address] Hernandez, we will admit the patient for further care. - Vital Signs Vital signs: Temp Pulse Resp BP Pulse Ox 100.8 F H 132 H 29 H 122/66 93 06/21/19 21:55 06/21/19 21:52 06/21/19 23:31 06/21/19 23:31 06/21/19 23:31 - Laboratory Result Diagrams: 06/21/19 22:57 06/21/19 22:57 Laboratory results interpreted by me: 06/21/19 06/21/19 22:57 22:57 WBC 24.0 H MCV 78 L MCH 26.0 L RDW 14.4 H Seg Neuts % (Manual) 79 H Lymphocytes % (Manual) 12 L Abs Neuts (Manual) 19.0 H Abs Monocytes (Manual) 2.2 H Potassium 3.2 L Chloride 97 L Glucose 205 H AST 13 L - Diagnostic Test Radiology reviewed: Image reviewed, Reports reviewed Radiology results interpreted by me: 06/22/19 01:22 Chest X-Ray 06/21/19 21:56 IMPRESSION: Left perihilar and left basilar pneumonia copyright 2011 [employer]- All Rights Reserved - EKG Interpretation by Me Additional EKG results interpreted by me: 06/22/19 01:23 Sinus tachycardia with rate 125 bpm. Normal axis. Nonspecific ST changes, but no acute changes concerning Discharge - Discharge Clinical Impression: Acute exacerbation of chronic obstructive pulmonary disease (COPD) Pneumonia Qualifiers: Aspiration pneumonia type: unspecified Laterality: left Lung location: lower lobe of lung Sepsis Qualifiers: Sepsis type: sepsis due to unspecified organism Sepsis acute organ dysfunction status: without acute organ dysfunction Qualified Code(s): A41.9 - Sepsis, unspecified organism Condition: Stable Disposition: ADMITTED INPATIENT Admitting Provider: David (Hospitalist) Unit Admitted: Medical Floor Referrals: BONIFACIO MELENDEZ FNP-C [Primary Care Provider] - Follow up as needed
[2019-06-22] MEDS: NORMAL SALINE 1000 ML 1,000 ML IV PRN ×2 (01:24→02:20)
[2019-06-22 02:03] LABS: A TYPE INFLUENZA AG POSITIVE (NEGATIVE); B INFLUENZA AG POSITIVE (NEGATIVE)
[2019-06-22] MEDS ORDERED: RINGERS SOLUTION,LACTATED 1,000 ML IV PRN (02:10)
[2019-06-22] MEDS ORDERED: GUAIFENESIN SYRP 200 MG/10 ML UDC PO PRN (02:10)
[2019-06-22] MEDS ORDERED: ACETAMINOPHEN 325 MG TABLET PO PRN (02:10)
[2019-06-22] MEDS ORDERED: HYDRALAZINE HCL INJ/PF 20 MG/1 ML SDV IV PRN (02:14)
[2019-06-22] MEDS ORDERED: MAG HYDROX/AL HYDROX/SIMETH SUSP 30 ML UDCUP PO PRN (02:14)
[2019-06-22] MEDS ORDERED: MAGNESIUM HYDROXIDE SUSP 30 ML UDCUP PO PRN (02:14)
[2019-06-22] MEDS ORDERED: NALBUPHINE HCL INJ 10 MG/1 ML AMPULE IV PRN ×3 (02:14→02:36)
[2019-06-22] MEDS ORDERED: DEXTROSE 50%-WATER 25 GM/50 ML DISP.SYRIN IV PRN ×2 (02:17)
[2019-06-22] MEDS ORDERED: DEXTROSE 40% GEL 15 GM TUBE PO PRN ×2 (02:17)
[2019-06-22] MEDS ORDERED: GLUCAGON,HUMAN RECOMB 1 MG INJ IM PRN (02:17)
--- NOTE | 2019-06-22 03:34 | PDOC H&P ---
History of Present Illness Admission Date/PCP: 06/22/19 01:35 JENNIFER MEYER Patient complains of: Dyspnea History of Present Illness: ADDIE STEWART is a 58 year old female who presented to the emergency room with a 3-day history of dyspnea. She admits progressively worsening dyspnea worsened by exertion and accompanied by wheezing, a nonproductive cough, malaise, ague, fever and chills. She believes that her dyspnea is severe at this time. She denies other associated or accompanying signs and symptoms. She admits numerous similar prior episodes related to her COPD. She has not identified any additional aggravating or ameliorating factors for her dyspnea. In the emergency room she was found to have a left perihilar and basilar pneumonia on chest x-ray with a 24,000 white count and a temperature of 100.8 F. She was subsequently admitted to the hospital for further evaluation treatment. Past Medical History Cardiac Medical History: Reports: Hypertension Denies: Atrial Fibrillation, Coronary Artery Disease, DVT, Myocardial In farction, Pulmonary Embolism Pulmonary Medical History: Reports: Asthma, Bronchitis, Chronic Obstructive Pulmonary Disease (COPD), Pneumonia, Respiratory Failure Denies: Intubation EENT Medical History: Denies: Cataracts, Ears - Hearing aids Neurological Medical History: Denies: Hemorrhagic CVA, Ischemic CVA, Seizures Endocrine Medical History: Reports: Diabetes Mellitus Type 2 Denies: Diabetes Mellitus Type 1, Hyperthyroidism, Hypothyroidism Renal/ Medical History: Denies: Chronic Kidney Disease, Nephrolithiasis Malignancy Medical History: Reports: None GI Medical History: Reports: Gastroesophageal Reflux Disease Denies: Cirrhosis, Crohn's Disease, Hepatitis, Ulcerative Colitis Musculoskeltal Medical History: Denies: Arthritis, Gout Skin Medical History: Denies: Eczema, Psoriasis Psychiatric Medical History: Reports: Tobacco Dependency Denies: Alcohol Dependency, Depression, Substance Abuse Traumatic Medical History: Reports: None Hematology: Denies: Anemia, Bleeding Tendencies Infectious Medical History: Reports: None Past Surgical History Past Surgical History: Reports: None Social History Information Source: Patient Lives with: Spouse/Significant other Smoking Status: Former Smoker Electronic Cigarette use?: No Frequency of Alcohol Use: None Hx Recreational Drug Use: No Drugs: None Hx Prescription Drug Abuse: No - Advance Directive Resuscitation Status: Full Code Surrogate healthcare decision maker:: Saulo Hal Family History Family History: COPD, DM, Hypertension Parental Family History Reviewed: Yes Children Family History Reviewed: No Sibling(s) Family History Reviewed.: Yes Medication/Allergy Home Medications: Budesonide/Formoterol Fumarate [Symbicort HFA 160-4.5 mcg Inhaler 6 gm] 2 puff IH Q12 06/14/19 Carvedilol [Coreg 3.125 mg Tablet] 3.125 mg PO Q12 06/14/19 Diltiazem HCl [Cardizem Cd 240 mg Capsule.cr] 240 mg PO Q12 06/14/19 Levalbuterol HCl [Xopenex Neb 1.25 mg/3 ml Ampul] 1.25 mg NEB RTQ8HP PRN 06/14/19 Levalbuterol Tartrate [Levalbuterol Tartrate Hfa] 2 puff IH Q4HP PRN 06/14/19 Metformin HCl [Glucophage] 1,000 mg PO BID 06/14/19 Montelukast Sodium [Singulair 10 mg Tablet] 10 mg PO QHS 06/14/19 Prednisone [Deltasone 20 mg Tablet] 20 mg PO BID 5 Days #10 tablet 06/15/19 Tiotropium [place] [Spiriva Handihaler 5 Cap/Kit (18 Mcg/Cap)] 1 cap IH DAILY #20 capsule 06/15/19 Allergies/Adverse Reactions: benzonatate [From [employer]] Allergy (Verified 04/10/19 11:21) RCING HEARTBEART NSAIDS (Non-Steroidal Anti-Inflamma Allergy (Verified 04/10/19 11:21) RACING HEARTBEAT Review of Systems Constitutional: PRESENT: chills, fever(s) - Subjective, other - Malaise, ague Eyes: ABSENT: visual disturbances, other - Eye pain Ears: ABSENT: hearing changes, other - Ear pain Nose, Mouth, and Throat: ABSENT: headache(s), mouth pain, sore throat Cardiovascular: PRESENT: dyspnea on exertion. ABSENT: chest pain, palpitations Respiratory: PRESENT: as per HPI, cough, dyspnea, other - Wheezing. ABSENT: sputum Gastrointestinal: ABSENT: abdominal pain, constipation, diarrhea, nausea, vomiting Genitourinary: ABSENT: dysuria, hematuria Musculoskeletal: ABSENT: back pain, joint swelling, muscle weakness Integumentary: ABSENT: pruritus, rash Neurological: ABSENT: confusion, convulsions, focal weakness, memory loss, syncope Psychiatric: ABSENT: anxiety, depression Endocrine: ABSENT: cold intolerance, heat intolerance Hematologic/Lymphatic: ABSENT: easy bleeding, easy bruising Allergic/Immunologic: ABSENT: seasonal rhinorrhea Physical Exam Vital Signs: Temp Pulse Resp BP Pulse Ox 100.8 F H 132 H 29 H 122/66 93 06/21/19 21:55 06/21/19 21:52 06/21/19 23:31 06/21/19 23:31 06/21/19 23:31 Intake & Output 06/20/19 06/21/19 06/22/19 23:59 23:59 23:59 Weight 69.2 kg General appearance: PRESENT: cooperative, mild distress - Secondary to dyspnea Head exam: PRESENT: atraumatic, normocephalic Eye exam: PRESENT: conjunctiva pink. ABSENT: conjunctival injection, scleral icterus Ear exam: PRESENT: normal external ear exam. ABSENT: bleeding, drainage Mouth exam: PRESENT: dry mucosa, neck supple Neck exam: ABSENT: thyromegaly, tracheal deviation Respiratory exam: PRESENT: prolonged expiratory phas - Moderately prolonged expiratory phase in all preciado, rales - Scattered coarse rales left base, symmetrical, wheezes - Moderate expiratory wheezes present all preciado Cardiovascular exam: PRESENT: RRR, tachycardia. ABSENT: clicks, gallop, rubs Pulses: PRESENT: normal radial pulses, normal dorsalis pedis pul Vascular exam: PRESENT: normal capillary refill. ABSENT: pallor GI/Abdominal exam: PRESENT: normal bowel sounds, soft Rectal exam: PRESENT: deferred Extremities exam: ABSENT: joint swelling, pedal edema Musculoskeletal exam: ABSENT: deformity, dislocation Neurological exam: PRESENT: alert, oriented to person, oriented to place, oriented to time, oriented to situation, CN II-XII grossly intact. ABSENT: motor sensory deficit Psychiatric exam: PRESENT: appropriate affect, normal mood Skin exam: PRESENT: dry, intact, warm. ABSENT: jaundice, rash, urticaria Results Laboratory Results: 06/21/19 22:57 06/21/19 22:57 06/21/19 06/21/19 06/21/19 22:57 22:57 22:57 WBC 24.0 H RBC 4.81 Hgb 12.5 Hct 37.5 MCV 78 L MCH 26.0 L MCHC 33.3 RDW 14.4 H Plt Count 373 Seg Neutrophils % Not Reportable Sodium 139.7 Potassium 3.2 L Chloride 97 L Carbon Dioxide 29 Anion Gap 14 BUN 10 Creatinine 0.74 Est GFR ( Amer) > 60 Glucose 205 H Lactic Acid 1.6 Calcium 9.0 Total Bilirubin 0.7 AST 13 L Alkaline Phosphatase 97 Total Protein 6.7 Albumin 3.9 06/21/19 22:57 Troponin I < 0.012 Impressions: Chest X-Ray 06/21/19 21:56 IMPRESSION: Left perihilar and left basilar pneumonia copyright 2011 [employer]- All Rights Reserved Assessment and Plan - Diagnosis (1) Pneumonia Qualifiers: Aspiration pneumonia type: unspecified Laterality: left Lung location: lower lobe of lung Is this a current diagnosis for this admission?: Yes (2) Acute respiratory failure with hypoxia Is this a current diagnosis for this admission?: Yes (3) Acute exacerbation of chronic obstructive pulmonary disease (COPD) Is this a current diagnosis for this admission?: Yes (4) Tachycardia Is this a current diagnosis for this admission?: Yes (5) GERD (gastroesophageal reflux disease) Qualifiers: Esophagitis presence: without esophagitis Qualified Code(s): K21.9 - Gastro-esophageal reflux disease without esophagitis Is this a current diagnosis for this admission?: Yes (6) Hypertension Qualifiers: Hypertension type: essential hypertension Qualified Code(s): I10 - Essential (primary) hypertension Is this a current diagnosis for this admission?: Yes (7) Diabetes mellitus type 2 in nonobese Is this a current diagnosis for this admission?: Yes - Plan Summary Summary: Patient will be admitted to the medical floor and receive the usual supportive and symptomatic cares. He will be continued on her usual medications where possible for her chronic medical illnesses. She will receive IV antibiotics for treatment of a healthcare acquired pneumonia, using Levaquin and cefepime. She will receive an aggressive pulmonary toilet utilizing Xopenex, Atrovent, Pulmicort and Mucomyst. She was recently treated with steroids and another acute treatment would be best avoided if possible. She will be monitored closely and receive IV fluids and support of her pneumonia. She received Tylenol for her fever. She will use Nubain 5 to 10 mg IV every 3 hours as needed for pain. - Time Time Spent with patient: 15-24 minutes Medications reviewed and adjusted accordingly: Yes Anticipated discharge: Home with Homehealth - Inpatient Certification Based on my medical assessment, after consideration of the patient's comorbidities, presenting symptoms, or acuity I expect that the services needed warrant INPATIENT care.: Yes I certify that my determination is in accordance with my understanding of Medicare's requirements for reasonable and necessary INPATIENT services [42 CFR 412.3e].: Yes Medical Necessity: Need Close Monitoring Due to Risk of Patient Decompensation, Need For IV Fluids, Need for Nebulizer Therapy and Monitoring of Response, Need for IV Antibiotics, Risk of Complication if Not Cared For in Hospital
[2019-06-22] MEDS ORDERED: CEFEPIME 2 GM/D5W RTU 2 GM/50 ML RTUPB IV ONE (06:07)
[2019-06-22] MEDS: CEFEPIME 2 GM/D5W RTU 2 GM/50 ML RTUPB IV SCH ×2 (06:21→17:51)
[2019-06-22] MEDS: HEPARIN SOD (PORCINE) 5,000 UNIT/ML 1 ML VIAL SUBCUT SCH ×3 (06:22→21:29)
[2019-06-22] MEDS: BUDESONIDE NEB 0.5 MG/2 ML AMPUL NEB SCH ×2 (07:45→20:50)
[2019-06-22] MEDS: LEVALBUTEROL HCL NEB 1.25 MG/3 ML AMPUL NEB SCH ×2 (07:45→15:36)
[2019-06-22] MEDS: IPRATROPIUM BROMIDE 0.02% NEB 0.5 MG/2.5 ML AMPUL NEB SCH ×2 (07:45→15:36)
[2019-06-22] MEDS: ACETYLCYSTEINE 20% SOLN 800 MG/4 ML VIAL.NEB NEB SCH ×2 (07:45→20:50)
--- NOTE | 2019-06-22 07:51 | EKG REPORT ---
SEVERITY:- ABNORMAL ECG - SINUS TACHYCARDIA CHARLES, CONSIDER BIATRIAL ABNORMALITIES PROBABLE LVH WITH SECONDARY REPOL ABNRM : Confirmed by: Raman Hernandez MD 22-Jun-2019 07:50:46
[2019-06-22] MEDS: INSULIN REG, HUMAN 100 UNIT/ML 3 ML VIAL (PYX) SUBCUT SCH ×4 (08:07→21:29)
[2019-06-22] MEDS: DOCUSATE SODIUM 100 MG CAPSULE PO SCH ×2 (09:28→17:56)
[2019-06-22] MEDS: FAMOTIDINE 20 MG TABLET PO SCH ×3 (09:28→21:34)
[2019-06-22] MEDS: OSELTAMIVIR PHOSPHATE 75 MG CAPSULE PO SCH ×2 (14:26→17:51)
[2019-06-22] MEDS ORDERED: METOPROLOL TARTRATE PF/INJ 5 MG/5 ML SDV IV PRN (16:47)
[2019-06-22] MEDS: LEVALBUTEROL HCL NEB 0.63 MG/3 ML AMPUL NEB PRN (20:50)
[2019-06-22] MEDS: CARVEDILOL 3.125 MG TABLET PO SCH (21:32)
[2019-06-22] MEDS: MONTELUKAST SODIUM 10 MG TABLET PO SCH (21:32)
[2019-06-22] MEDS: DILTIAZEM HCL 240 MG CAPSULE.CR PO SCH (21:33)
[2019-06-22] MEDS ORDERED: (PENDING PHARMACY ID) (Diltiazem Hcl [Diltiazem 24hr Er] 240 MG) PO SCH (22:00)
[2019-06-23] MEDS: LEVALBUTEROL HCL NEB 1.25 MG/3 ML AMPUL NEB SCH ×3 (01:01→17:44)
[2019-06-23] MEDS: IPRATROPIUM BROMIDE 0.02% NEB 0.5 MG/2.5 ML AMPUL NEB SCH ×3 (01:01→17:44)
[2019-06-23] MEDS: HEPARIN SOD (PORCINE) 5,000 UNIT/ML 1 ML VIAL SUBCUT SCH ×3 (05:02→22:20)
[2019-06-23] MEDS: CEFEPIME 2 GM/D5W RTU 2 GM/50 ML RTUPB IV SCH (05:03)
[2019-06-23 05:49] LABS: HEMATOCRIT 33.7 % (36.0-47.0); HEMOGLOBIN 11.1 g/dL (12.0-15.5); MEAN CORPUSCULAR HEMOGLOBIN 25.5 pg (27.0-33.4); MEAN CORPUSCULAR HGB CONC 33.1 g/dL (32.0-36.0); MEAN CORPUSCULAR VOLUME 77 fl (80-97); PLATELET COUNT 303 10^3/uL (150-450); RED BLOOD COUNT 4.36 10^6/uL (3.72-5.28); RED CELL DISTRIBUTION WIDTH 14.5 % (11.5-14.0); WHITE BLOOD COUNT 13.3 10^3/uL (4.0-10.5)
[2019-06-23 06:21] LABS: ANION GAP 11 (5-19); BLOOD UREA NITROGEN 6 mg/dL (7-20); CARBON DIOXIDE 30 mmol/L (22-30); CHLORIDE 102 mmol/L (98-107); GLUCOSE 124 mg/dL (75-110); POTASSIUM 3.6 mmol/L (3.6-5.0)
[2019-06-23] MEDS: ACETYLCYSTEINE 20% SOLN 800 MG/4 ML VIAL.NEB NEB SCH ×2 (07:38→20:11)
[2019-06-23] MEDS: BUDESONIDE NEB 0.5 MG/2 ML AMPUL NEB SCH ×2 (07:39→20:11)
[2019-06-23] MEDS: INSULIN REG, HUMAN 100 UNIT/ML 3 ML VIAL (PYX) SUBCUT SCH ×4 (08:01→22:20)
[2019-06-23] MEDS: LEVOFLOXACIN 750 MG/D5W RTU 750 MG/150 ML RTUPB IV SCH (08:57)
[2019-06-23] MEDS: OSELTAMIVIR PHOSPHATE 75 MG CAPSULE PO SCH ×2 (09:06→17:39)
[2019-06-23] MEDS: FLUTICASONE/VILANTEROL 200-25 MCG/DOSE IH SCH (09:06)
[2019-06-23] MEDS: CARVEDILOL 3.125 MG TABLET PO SCH ×2 (09:07→22:19)
[2019-06-23] MEDS: FAMOTIDINE 20 MG TABLET PO SCH ×2 (09:07→22:20)
[2019-06-23] MEDS: DOCUSATE SODIUM 100 MG CAPSULE PO SCH ×2 (09:07→17:39)
[2019-06-23] MEDS: DILTIAZEM HCL 240 MG CAPSULE.CR PO SCH ×2 (09:07→22:19)
[2019-06-23] MEDS ORDERED: (PENDING PHARMACY ID) (Tiotropium Bromide [Spiriva Handihaler 5 Cap/Kit (18 Mcg/Cap)] 1 PU IH SCH (10:00)
[2019-06-23] MEDS: UMECLIDINIUM BROMIDE 62.5 MCG/DOSE IH SCH (10:35)
--- NOTE | 2019-06-23 11:57 | PDOC PROGRESS REPORT ---
Subjective Progress Note for:: 06/23/19 Subjective:: ADDIE STEWART is a 58 year old female who presented to the emergency room with a 3-day history of dyspnea. She admits progressively worsening dyspnea worsened by exertion and accompanied by wheezing, a nonproductive cough, malaise, ague, fever and chills. She believes that her dyspnea is severe at this time. She denies other associated or accompanying signs and symptoms. She admits numerous similar prior episodes related to her COPD. She has not identified any additional aggravating or ameliorating factors for her dyspnea. In the emergency room she was found to have a left perihilar and basilar pneumonia on chest x-ray with a 24,000 white count and a temperature of 100.8 F. She was subsequently admitted to the hospital for further evaluation treatment. 06/23/2019. No acute events overnight. Patient stating that she is feeling better compared to yesterday, resting in bed comfortably in no apparent distress. Denies any fever, chills, nausea, vomiting, diarrhea, constipation or any urinary symptoms. Reason For Visit: DYSPNEA, TACHYPNEA, TACHYCARDIA Physical Exam Vital Signs: Temp Pulse Resp BP Pulse Ox 99.2 F 97 18 104/48 L 93 06/23/19 07:38 06/23/19 07:39 06/23/19 07:39 06/23/19 07:38 06/23/19 07:39 Pulse Oximeter Continuous Start: 06/22/19 02:10 Freq: RTQ4 Status: Complete Protocol: Document 06/22/19 07:45 [facility] (Rec: 06/22/19 08:31 [facility] [id number]) Pulse Oximetry Assessment Oxygen Saturation (92-100) 93 Oxygen Delivery Method Room Air Fraction of Inspired Oxygen (FIO2) 21 Equipment Usage Equipment Standby Continuous SpO2 Machine # na Intake & Output 06/22/19 06/23/19 06/24/19 06:59 06:59 06:59 Intake Total 2440 1357 Balance 2440 1357 Weight 70.4 kg 70.6 kg General appearance: PRESENT: no acute distress, well-developed, well-nourished Head exam: PRESENT: atraumatic, normocephalic Respiratory exam: PRESENT: clear to auscultation connor. ABSENT: rales, rhonchi, wheezes Cardiovascular exam: PRESENT: RRR. ABSENT: diastolic murmur, rubs, systolic murmur Neurological exam: PRESENT: alert, awake, oriented to person, oriented to place, oriented to time, oriented to situation, CN II-XII grossly intact. ABSENT: motor sensory deficit Results Laboratory Results: 06/23/19 04:06 06/23/19 04:06 06/23/19 06/23/19 04:06 04:06 WBC 13.3 H RBC 4.36 Hgb 11.1 L Hct 33.7 L MCV 77 L MCH 25.5 L MCHC 33.1 RDW 14.5 H Plt Count 303 Sodium 142.6 Potassium 3.6 Chloride 102 Carbon Dioxide 30 Anion Gap 11 BUN 6 L Creatinine 0.54 Est GFR ( Amer) > 60 Glucose 124 H Calcium 9.0 06/21/19 22:57 Troponin I < 0.012 Impressions: Chest X-Ray 06/21/19 21:56 IMPRESSION: Left perihilar and left basilar pneumonia copyright 2011 [employer]- All Rights Reserved Assessment and Plan - Diagnosis (1) Flu Is this a current diagnosis for this admission?: Yes Plan: Due to influenza type a and B. Day 2 of Tamiflu. (2) Pneumonia Qualifiers: Aspiration pneumonia type: unspecified Laterality: left Lung location: lower lobe of lung Is this a current diagnosis for this admission?: Yes Plan: Positive for influenza a and B, given underlying structural lung disease and diabetes patient is at risk of developing bacterial pneumonia will start on empiric IV antibiotics covering gram positives, atypicals and gram negatives. Cultures negative so far. Day 2 IV antibiotics. Day 2 IV cefepime. Day 2 IV levofloxacin. Continue empiric IV antibiotics, follow-up sputum and blood culture. (3) Acute respiratory failure with hypoxia Is this a current diagnosis for this admission?: Yes Plan: Due to underlying flu complicated by underlying COPD. Improving. SPO2 WNL on 2 L nasal cannula. Continue treatment for underlying pneumonia and flu. Continue DuoNeb's, incentive spirometry, flutter valve, PRN BiPAP, LABA, ICS, LABA. (4) COPD (chronic obstructive pulmonary disease) Qualifiers: COPD type: unspecified COPD Qualified Code(s): J44.9 - Chronic obstructive pulmonary disease, unspecified Is this a current diagnosis for this admission?: Yes Plan: Acutely exacerbated due to underlying flu/pneumonia. Plan as per above. (5) Diabetes mellitus type 2 in nonobese Is this a current diagnosis for this admission?: Yes Plan: Controlled. Hemoglobin A1c 7.2. Continue diabetic diet, sliding scale insulin, pre-meal insulin, long-acting insulin, hypoglycemic protocol, Accu-Chek, adjust meds as needed. Restart home meds upon discharge. (6) Hypertension Qualifiers: Hypertension type: essential hypertension Qualified Code(s): I10 - Essential (primary) hypertension Is this a current diagnosis for this admission?: Yes Plan: Normotensive. Euvolemic. Restart home meds. Adjust meds as needed. - Plan Summary Summary: Patient will be admitted to the medical floor and receive the usual supportive and symptomatic cares. He will be continued on her usual medications where possible for her chronic medical illnesses. She will receive IV antibiotics for treatment of a healthcare acquired pneumonia, using Levaquin and cefepime. She will receive an aggressive pulmonary toilet utilizing Xopenex, Atrovent, Pulmicort and Mucomyst. She was recently treated with steroids and another acute treatment would be best avoided if possible. She will be monitored closely and receive IV fluids and support of her pneumonia. She received Tylenol for her fever. She will use Nubain 5 to 10 mg IV every 3 hours as needed for pain.
[2019-06-23] MEDS: CEFEPIME HCL 2 GM in DEXTROSE 5%-WATER 50 ML IV SCH (17:39)
[2019-06-23] MEDS: LEVALBUTEROL HCL NEB 0.63 MG/3 ML AMPUL NEB PRN (20:11)
[2019-06-23] MEDS: MONTELUKAST SODIUM 10 MG TABLET PO SCH (22:18)
[2019-06-24] MEDS: LEVALBUTEROL HCL NEB 1.25 MG/3 ML AMPUL NEB SCH ×3 (00:03→15:50)
[2019-06-24] MEDS: IPRATROPIUM BROMIDE 0.02% NEB 0.5 MG/2.5 ML AMPUL NEB SCH ×3 (00:03→15:50)
[2019-06-24] MEDS: HEPARIN SOD (PORCINE) 5,000 UNIT/ML 1 ML VIAL SUBCUT SCH ×3 (05:49→21:53)
[2019-06-24] MEDS: CEFEPIME HCL 2 GM in DEXTROSE 5%-WATER 50 ML IV SCH ×2 (05:54→17:43)
[2019-06-24 06:06] LABS: HEMATOCRIT 31.6 % (36.0-47.0); HEMOGLOBIN 10.4 g/dL (12.0-15.5); MEAN CORPUSCULAR HEMOGLOBIN 25.8 pg (27.0-33.4); MEAN CORPUSCULAR VOLUME 78 fl (80-97); PLATELET COUNT 282 10^3/uL (150-450); RED BLOOD COUNT 4.04 10^6/uL (3.72-5.28); RED CELL DISTRIBUTION WIDTH 14.5 % (11.5-14.0); WHITE BLOOD COUNT 11.1 10^3/uL (4.0-10.5)
[2019-06-24 06:40] LABS: ANION GAP 8 (5-19); BLOOD UREA NITROGEN 11 mg/dL (7-20); CALCIUM 8.7 mg/dL (8.4-10.2); CARBON DIOXIDE 28 mmol/L (22-30); CHLORIDE 104 mmol/L (98-107); GLUCOSE 133 mg/dL (75-110); POTASSIUM 3.6 mmol/L (3.6-5.0)
[2019-06-24] MEDS: INSULIN REG, HUMAN 100 UNIT/ML 3 ML VIAL (PYX) SUBCUT SCH ×4 (07:40→22:08)
[2019-06-24] MEDS: LEVOFLOXACIN 750 MG/D5W RTU 750 MG/150 ML RTUPB IV SCH (08:00)
[2019-06-24] MEDS: ACETYLCYSTEINE 20% SOLN 800 MG/4 ML VIAL.NEB NEB SCH ×2 (08:38→20:49)
[2019-06-24] MEDS: BUDESONIDE NEB 0.5 MG/2 ML AMPUL NEB SCH ×2 (08:38→20:50)
[2019-06-24] MEDS: FAMOTIDINE 20 MG TABLET PO SCH ×2 (10:41→22:10)
[2019-06-24] MEDS: DOCUSATE SODIUM 100 MG CAPSULE PO SCH ×2 (10:41→17:33)
[2019-06-24] MEDS: OSELTAMIVIR PHOSPHATE 75 MG CAPSULE PO SCH ×2 (10:42→17:46)
[2019-06-24] MEDS: METOPROLOL TARTRATE 25 MG TABLET PO SCH ×2 (10:42→22:09)
[2019-06-24] MEDS: DILTIAZEM HCL 240 MG CAPSULE.CR PO SCH ×2 (10:42→22:09)
[2019-06-24] MEDS: FLUTICASONE/VILANTEROL 200-25 MCG/DOSE IH SCH (10:45)
[2019-06-24] MEDS: UMECLIDINIUM BROMIDE 62.5 MCG/DOSE IH SCH (10:45)
--- NOTE | 2019-06-24 10:58 | PDOC PROGRESS REPORT ---
Subjective Progress Note for:: 06/24/19 Subjective:: ADDIE STEWART is a 58 year old female who presented to the emergency room with a 3-day history of dyspnea. She admits progressively worsening dyspnea worsened by exertion and accompanied by wheezing, a nonproductive cough, malaise, ague, fever and chills. She believes that her dyspnea is severe at this time. She denies other associated or accompanying signs and symptoms. She admits numerous similar prior episodes related to her COPD. She has not identified any additional aggravating or ameliorating factors for her dyspnea. In the emergency room she was found to have a left perihilar and basilar pneumonia on chest x-ray with a 24,000 white count and a temperature of 100.8 F. She was subsequently admitted to the hospital for further evaluation treatment. 06/23/2019. No acute events overnight. Patient stating that she is feeling better compared to yesterday, resting in bed comfortably in no apparent distress. Denies any fever, chills, nausea, vomiting, diarrhea, constipation or any urinary symptoms. 07/11/2019. Complaining of generalized fatigue back pain. Denies any shortness of breath, fever, chills, nausea, vomiting, diarrhea, constipation or any urinary symptoms. Possible discharge home tomorrow if remains afebrile. Reason For Visit: DYSPNEA, TACHYPNEA, TACHYCARDIA Physical Exam Vital Signs: Temp Pulse Resp BP Pulse Ox 98.0 F 83 18 112/63 92 06/24/19 07:55 06/24/19 08:38 06/24/19 08:38 06/24/19 07:55 06/24/19 08:38 Pulse Oximeter Continuous Start: 06/22/19 02:10 Freq: RTQ4 Status: Complete Protocol: Document 06/22/19 07:45 [facility] (Rec: 06/22/19 08:31 [facility] [id number]) Pulse Oximetry Assessment Oxygen Saturation (92-100) 93 Oxygen Delivery Method Room Air Fraction of Inspired Oxygen (FIO2) 21 Equipment Usage Equipment Standby Continuous SpO2 Machine # na Intake & Output 06/23/19 06/24/19 06/25/19 06:59 06:59 06:59 Intake Total 1357 1010 150 Balance 1357 1010 150 Weight 70.6 kg 70.5 kg General appearance: PRESENT: no acute distress, well-developed, well-nourished Head exam: PRESENT: atraumatic, normocephalic Neck exam: ABSENT: carotid bruit, JVD, lymphadenopathy, thyromegaly Respiratory exam: PRESENT: clear to auscultation connor. ABSENT: rales, rhonchi, wheezes Cardiovascular exam: PRESENT: RRR. ABSENT: diastolic murmur, rubs, systolic murmur Pulses: PRESENT: normal dorsalis pedis pul Vascular exam: PRESENT: normal capillary refill GI/Abdominal exam: PRESENT: normal bowel sounds, soft. ABSENT: distended, guarding, mass, organolmegaly, rebound, tenderness Extremities exam: PRESENT: full ROM. ABSENT: calf tenderness, clubbing, pedal edema Neurological exam: PRESENT: alert, awake, oriented to person, oriented to place, CN II-XII grossly intact. ABSENT: motor sensory deficit Skin exam: PRESENT: dry, intact, warm. ABSENT: cyanosis, rash Results Laboratory Results: 06/24/19 04:41 06/24/19 04:41 06/24/19 06/24/19 04:41 04:41 WBC 11.1 H RBC 4.04 Hgb 10.4 L Hct 31.6 L MCV 78 L MCH 25.8 L MCHC 33.0 RDW 14.5 H Plt Count 282 Sodium 139.9 Potassium 3.6 Chloride 104 Carbon Dioxide 28 Anion Gap 8 BUN 11 Creatinine 0.61 Est GFR ( Amer) > 60 Glucose 133 H Calcium 8.7 Magnesium 2.1 06/21/19 22:57 Troponin I < 0.012 Impressions: Chest X-Ray 06/21/19 21:56 IMPRESSION: Left perihilar and left basilar pneumonia copyright 2011 [employer]- All Rights Reserved Assessment and Plan - Diagnosis (1) Flu Is this a current diagnosis for this admission?: Yes Plan: Due to influenza type a and B. Day 3 of Tamiflu. (2) Pneumonia Qualifiers: Aspiration pneumonia type: unspecified Laterality: left Lung location: lower lobe of lung Is this a current diagnosis for this admission?: Yes Plan: Positive for influenza a and B, given underlying structural lung disease and diabetes patient is at risk of developing bacterial pneumonia will start on empiric IV antibiotics covering gram positives, atypicals and gram negatives. Cultures negative so far. Day 3 IV antibiotics. Day 3 IV cefepime. Day 3 IV levofloxacin. Continue empiric IV antibiotics, follow-up sputum and blood culture. (3) Acute respiratory failure with hypoxia Is this a current diagnosis for this admission?: Yes Plan: Resolved. Due to underlying flu complicated by underlying COPD. Continue treatment for underlying pneumonia and flu. Continue DuoNeb's, incentive spirometry, flutter valve, PRN BiPAP, LABA, ICS, LABA. (4) COPD (chronic obstructive pulmonary disease) Qualifiers: COPD type: unspecified COPD Qualified Code(s): J44.9 - Chronic obstructive pulmonary disease, unspecified Is this a current diagnosis for this admission?: Yes Plan: Presented with exacerbation likely due to underlying flu/pneumonia. Plan as per above. (5) Diabetes mellitus type 2 in nonobese Is this a current diagnosis for this admission?: Yes Plan: Controlled. Hemoglobin A1c 7.2. Continue diabetic diet, sliding scale insulin, pre-meal insulin, long-acting insulin, hypoglycemic protocol, Accu-Chek, adjust meds as needed. Restart home meds upon discharge. (6) Hypertension Qualifiers: Hypertension type: essential hypertension Qualified Code(s): I10 - Essential (primary) hypertension Is this a current diagnosis for this admission?: Yes Plan: Normotensive. Euvolemic. Restart home meds. Adjust meds as needed.
[2019-06-24] MEDS: LEVALBUTEROL HCL NEB 0.63 MG/3 ML AMPUL NEB PRN (20:50)
[2019-06-24] MEDS: MONTELUKAST SODIUM 10 MG TABLET PO SCH (22:09)
[2019-06-25] MEDS: LEVALBUTEROL HCL NEB 1.25 MG/3 ML AMPUL NEB SCH ×2 (00:03→08:34)
[2019-06-25] MEDS: IPRATROPIUM BROMIDE 0.02% NEB 0.5 MG/2.5 ML AMPUL NEB SCH ×2 (00:03→08:34)
[2019-06-25] MEDS: HEPARIN SOD (PORCINE) 5,000 UNIT/ML 1 ML VIAL SUBCUT SCH ×2 (05:36→13:16)
[2019-06-25] MEDS: CEFEPIME HCL 2 GM in DEXTROSE 5%-WATER 50 ML IV SCH (05:44)
[2019-06-25 06:58] LABS: HEMATOCRIT 30.5 % (36.0-47.0); HEMOGLOBIN 10.3 g/dL (12.0-15.5); MEAN CORPUSCULAR HEMOGLOBIN 26.2 pg (27.0-33.4); MEAN CORPUSCULAR HGB CONC 33.8 g/dL (32.0-36.0); MEAN CORPUSCULAR VOLUME 78 fl (80-97); PLATELET COUNT 296 10^3/uL (150-450); RED BLOOD COUNT 3.93 10^6/uL (3.72-5.28); RED CELL DISTRIBUTION WIDTH 14.4 % (11.5-14.0); WHITE BLOOD COUNT 9.3 10^3/uL (4.0-10.5)
[2019-06-25] MEDS: INSULIN REG, HUMAN 100 UNIT/ML 3 ML VIAL (PYX) SUBCUT SCH ×2 (07:22→11:59)
[2019-06-25 07:24] LABS: ANION GAP 9 (5-19); BLOOD UREA NITROGEN 8 mg/dL (7-20); CALCIUM 8.7 mg/dL (8.4-10.2); CARBON DIOXIDE 29 mmol/L (22-30); CHLORIDE 104 mmol/L (98-107); GLUCOSE 116 mg/dL (75-110); POTASSIUM 3.6 mmol/L (3.6-5.0)
[2019-06-25] MEDS: LEVOFLOXACIN 750 MG/D5W RTU 750 MG/150 ML RTUPB IV SCH (07:42)
[2019-06-25] MEDS: ACETYLCYSTEINE 20% SOLN 800 MG/4 ML VIAL.NEB NEB SCH (08:33)
[2019-06-25] MEDS: BUDESONIDE NEB 0.5 MG/2 ML AMPUL NEB SCH (08:34)
[2019-06-25] MEDS: FAMOTIDINE 20 MG TABLET PO SCH (10:48)
[2019-06-25] MEDS: DOCUSATE SODIUM 100 MG CAPSULE PO SCH (10:48)
[2019-06-25] MEDS: METOPROLOL TARTRATE 25 MG TABLET PO SCH (10:49)
[2019-06-25] MEDS: OSELTAMIVIR PHOSPHATE 75 MG CAPSULE PO SCH (10:49)
[2019-06-25] MEDS: DILTIAZEM HCL 240 MG CAPSULE.CR PO SCH (10:49)
[2019-06-25] MEDS: UMECLIDINIUM BROMIDE 62.5 MCG/DOSE IH SCH (10:50)
[2019-06-25] MEDS: FLUTICASONE/VILANTEROL 200-25 MCG/DOSE IH SCH (10:50)
[2019-06-25 13:22] VITALS: BP 110/53
--- NOTE | 2019-06-27 17:38 | PDOC DISCHARGE SUMMARY ---
Impression - Admit/DC Date/PCP Admission Date/Primary Care Provider: 06/22/19 01:35 JENNIFER MEYER Discharge Date: 06/25/19 - Discharge Diagnosis (1) Flu Is this a current diagnosis for this admission?: Yes (2) Pneumonia Is this a current diagnosis for this admission?: Yes (3) Acute respiratory failure with hypoxia Is this a current diagnosis for this admission?: Yes (4) COPD (chronic obstructive pulmonary disease) Is this a current diagnosis for this admission?: Yes (5) Diabetes mellitus type 2 in nonobese Is this a current diagnosis for this admission?: Yes (6) Hypertension Is this a current diagnosis for this admission?: Yes - Additional Information Resuscitation Status: Full Code Discharge Activity: Activity As Tolerated, Balance Activity w/Rest Referrals: KERI WALLS MD [ACTIVE STAFF] - 06/28/19 1:00 pm Prescriptions: Oseltamivir Phosphate [Tamiflu 75 mg Capsule] 75 mg PO BID 3 Days #6 capsule Home Medications: Budesonide/Formoterol Fumarate [Symbicort HFA 160-4.5 mcg Inhaler 6 gm] 2 puff IH Q12 06/22/19 Carvedilol [Coreg 3.125 mg Tablet] 3.125 mg PO Q12 06/22/19 Diltiazem HCl [Diltiazem 24Hr ER] 240 mg PO Q12 06/22/19 Levalbuterol HCl [Xopenex Neb 1.25 mg/3 ml Ampul] 1.25 mg NEB RTQ8HP PRN 06/22/19 Levalbuterol Tartrate [Levalbuterol Tartrate Hfa] 2 puff IH Q4HP PRN 06/22/19 Metformin HCl [Glucophage] 1,000 mg PO BID 06/22/19 Montelukast Sodium [Singulair 10 mg Tablet] 10 mg PO QHS 06/22/19 Tiotropium [place] [Spiriva Handihaler 5 Cap/Kit (18 Mcg/Cap)] 1 puff IH DAILY 06/22/19 Oseltamivir Phosphate [Tamiflu 75 mg Capsule] 75 mg PO BID 3 Days #6 capsule 06/25/19 History of Present Illiness History of Present Illness: ADDIE STEWART is a 58 year old female who presented to the emergency room with a 3-day history of dyspnea. She admits progressively worsening dyspnea worsened by exertion and accompanied by wheezing, a nonproductive cough, malaise, ague, fever and chills. She believes that her dyspnea is severe at this time. She denies other associated or accompanying signs and symptoms. She admits numerous similar prior episodes related to her COPD. She has not identified any additional aggravating or ameliorating factors for her dyspnea. In the emergency room she was found to have a left perihilar and basilar pneumonia on chest x-ray with a 24,000 white count and a temperature of 100.8 F. She was subsequently admitted to the hospital for further evaluation treatment. Hospital Course Hospital Course: (1) Flu Due to influenza type a and B. Day 3 of Tamiflu. (2) Pneumonia Positive for influenza a and B, given underlying structural lung disease and diabetes patient is at risk of developing bacterial pneumonia will start on empiric IV antibiotics covering gram positives, atypicals and gram negatives. Cultures negative so far. Day 3 IV antibiotics. Day 3 IV cefepime. Day 3 IV levofloxacin. Continue empiric IV antibiotics, follow-up sputum and blood culture. (3) Acute respiratory failure with hypoxia Resolved. Due to underlying flu complicated by underlying COPD. Continue treatment for underlying pneumonia and flu. Continue DuoNeb's, incentive spirometry, flutter valve, PRN BiPAP, LABA, ICS, LABA. (4) COPD (chronic obstructive pulmonary disease) Presented with exacerbation likely due to underlying flu/pneumonia. Plan as per above. (5) Diabetes mellitus type 2 in nonobese Controlled. Hemoglobin A1c 7.2. Continue diabetic diet, sliding scale insulin, pre-meal insulin, long-acting insulin, hypoglycemic protocol, Accu-Chek, adjust meds as needed. Restart home meds upon discharge. (6) Hypertension Normotensive. Euvolemic. Restart home meds. Adjust meds as needed. Physical Exam Vital Signs: Temp Pulse Resp BP Pulse Ox 98.2 F 98 18 110/53 L 94 06/25/19 13:27 06/25/19 13:27 06/25/19 13:27 06/25/19 13:27 06/25/19 13:27 Pulse Oximeter Continuous Start: 06/22/19 02:10 Freq: RTQ4 Status: Complete Protocol: Document 06/22/19 07:45 [facility] (Rec: 06/22/19 08:31 [facility] [id number]) Pulse Oximetry Assessment Oxygen Saturation (92-100) 93 Oxygen Delivery Method Room Air Fraction of Inspired Oxygen (FIO2) 21 Equipment Usage Equipment Standby Continuous SpO2 Machine # na Intake & Output 06/26/19 06/27/19 06/28/19 06:59 06:59 06:59 Intake Total 150 Balance 150 General appearance: PRESENT: no acute distress, well-developed, well-nourished Results Laboratory Results: WBC 9.3 10^3/uL (4.0-10.5) 06/25/19 05:25 RBC 3.93 10^6/uL (3.72-5.28) 06/25/19 05:25 Hgb 10.3 g/dL (12.0-15.5) L 06/25/19 05:25 Hct 30.5 % (36.0-47.0) L 06/25/19 05:25 MCV 78 fl (80-97) L 06/25/19 05:25 MCH 26.2 pg (27.0-33.4) L 06/25/19 05:25 MCHC 33.8 g/dL (32.0-36.0) 06/25/19 05:25 RDW 14.4 % (11.5-14.0) H 06/25/19 05:25 Plt Count 296 10^3/uL (150-450) 06/25/19 05:25 Lymph % (Auto) Not Reportable 06/21/19 22:57 [place] % (Auto) Not Reportable 06/21/19 22:57 Eos % (Auto) Not Reportable 06/21/19 22:57 Baso % (Auto) Not Reportable 06/21/19 22:57 Absolute Neuts (auto) Not Reportable 06/21/19 22:57 Absolute Lymphs (auto) Not Reportable 06/21/19 22:57 Absolute Monos (auto) Not Reportable 06/21/19 22:57 Absolute Eos (auto) Not Reportable 06/21/19 22:57 Absolute Basos (auto) Not Reportable 06/21/19 22:57 Total Counted 100 06/21/19 22:57 Seg Neutrophils % Not Reportable 06/21/19 22:57 Seg Neuts % (Manual) 79 % (42-78) H 06/21/19 22:57 Lymphocytes % (Manual) 12 % (13-45) L 06/21/19 22:57 Monocytes % (Manual) 9 % (3-13) 06/21/19 22:57 Eosinophils % (Manual) 0 % (0-6) 06/21/19 22:57 Basophils % (Manual) 0 % (0-2) 06/21/19 22:57 Abs Neuts (Manual) 19.0 10^3/uL (1.7-8.2) H 06/21/19 22:57 Abs Lymphs (Manual) 2.9 10^3/uL (0.5-4.7) 06/21/19 22:57 Abs Monocytes (Manual) 2.2 10^3/uL (0.1-1.4) H 06/21/19 22:57 Absolute Eos (Manual) 0.0 10^3/uL (0.0-0.6) 06/21/19 22:57 Abs Basophils (Manual) 0.0 10^3/uL (0.0-0.2) 06/21/19 22:57 Platelet Comment ADEQUATE 06/21/19 22:57 Hypochromasia SLIGHT 06/21/19 22:57 Anisocytosis SLIGHT 06/21/19 22:57 Microcytosis SLIGHT 06/21/19 22:57 Ovalocytes SLIGHT 06/21/19 22:57 Sodium 141.7 mmol/L (137-145) 06/25/19 05:25 Potassium 3.6 mmol/L (3.6-5.0) 06/25/19 05:25 Chloride 104 mmol/L (98-107) 06/25/19 05:25 Carbon Dioxide 29 mmol/L (22-30) 06/25/19 05:25 Anion Gap 9 (5-19) 06/25/19 05:25 BUN 8 mg/dL (7-20) 06/25/19 05:25 Creatinine 0.50 mg/dL (0.52-1.25) L 06/25/19 05:25 Est GFR ( Amer) > 60 (>60) 06/25/19 05:25 Est GFR (MDRD) Non-Af > 60 (>60) 06/25/19 05:25 Glucose 116 mg/dL (75-110) H 06/25/19 05:25 POC Glucose 104 mg/dL (70-110) 06/25/19 11:39 Lactic Acid 1.6 mmol/L (0.7-2.1) 06/21/19 22:57 Calcium 8.7 mg/dL (8.4-10.2) 06/25/19 05:25 Magnesium 2.1 mg/dL (1.6-2.3) 06/24/19 04:41 Total Bilirubin 0.7 mg/dL (0.2-1.3) 06/21/19 22:57 Direct Bilirubin 0.0 mg/dL (0.0-0.4) 06/21/19 22:57 Neonat Total Bilirubin Not Reportable 06/21/19 22:57 Neonat Direct Bilirubin Not Reportable 06/21/19 22:57 Neonat Indirect Bili Not Reportable 06/21/19 22:57 AST 13 U/L (14-36) L 06/21/19 22:57 ALT 17 U/L (<35) 06/21/19 22:57 Alkaline Phosphatase 97 U/L (38-126) 06/21/19 22:57 Troponin I < 0.012 ng/mL 06/21/19 22:57 Total Protein 6.7 g/dL (6.3-8.2) 06/21/19 22:57 Albumin 3.9 g/dL (3.5-5.0) 06/21/19 22:57 Influenza A (Rapid) POSITIVE (NEGATIVE) 06/22/19 01:13 Influenza B (Rapid) POSITIVE (NEGATIVE) 06/22/19 01:13 06/21/19 22:57 Troponin I < 0.012 Impressions: Chest X-Ray 06/21/19 21:56 IMPRESSION: Left perihilar and left basilar pneumonia copyright 2011 [email or web address]- All Rights Reserved Plan Time Spent: Greater than 30 Minutes Stroke Is this a Stroke Patient?: No Acute Heart Failure - Is this a Heart Failure Patient?: No
== END 2019-06-25 14:45 | disposition home health service (06) | DRG 152 ==
LOC: ER 21:18 → EH 06-22 01:35 → 4N 06-22 02:57
PROVIDERS: ADMIT Emergency Medicine; ATTEND Emergency Medicine
DX: J11.1 Influenza due to unidentified influenza virus with other respiratory manifestations (principal); J96.01 Acute respiratory failure with hypoxia; J44.1 Chronic obstructive pulmonary disease with (acute) exacerbation; J18.9 Pneumonia, unspecified organism; I10 Essential (primary) hypertension; E11.8 Type 2 diabetes mellitus with unspecified complications; K21.9 Gastro-esophageal reflux disease without esophagitis; Z79.84 Long term (current) use of oral hypoglycemic drugs; Z79.52 Long term (current) use of systemic steroids; Z79.899 Other long term (current) drug therapy
CPT/HCPCS: 36415; 71046; 80048; 80053; 82962; 83605; 83735; 84484; 85025; 85027; 87040; 87804; 93005; 93010; 94640; 99285; J0692; J1815; J1956; J3490; J7030; J7060; J7614; J7620

== ENCOUNTER 2019-07-02 18:15 | Inpatient (IN) | payer MEDICARE ==
[2019-07-02] MEDS ORDERED: ACETAMINOPHEN 325 MG TABLET PO ONE (19:11)
[2019-07-02] MEDS ORDERED: NORMAL SALINE 1000 ML 2,100 ML IV ONE (19:11)
[2019-07-02] MEDS ORDERED: IPRATROPIUM/ALBUTEROL 0.5-2.5 MG/3 ML AMPUL NEB ONE ×2 (19:13→20:45)
--- NOTE | 2019-07-02 19:17 | ER Document Report ---
ED Medical Screen (RME) - General Chief Complaint: Shortness Of Breath Stated Complaint: COUGH Time Seen by Provider: 07/02/19 19:05 Primary Care Provider: BONIFACIO MELENDEZ FNP-C [Primary Care Provider] - Follow up as needed Information source: Patient Notes: Patient presents complaining of cough, nausea vomiting and diarrhea. Patient also reports left lower back pain. Patient denies any urinary symptoms. Patient was discharged 1 week ago after being treated for pneumonia and influenza. Patient denies any significant improvement of her symptoms. hx: hypertension, diabetes, COPD, asthma I have greeted and performed a rapid initial assessment of this patient. A comprehensive ED assessment and evaluation of the patient, analysis of test results and completion of the medical decision making process will be conducted by additional ED providers. TRAVEL OUTSIDE OF THE [place] IN LAST 30 DAYS: No - Related Data Allergies/Adverse Reactions: benzonatate [From Tessalon Perles] Allergy (Verified 04/10/19 11:21) RCING HEARTBEART NSAIDS (Non-Steroidal Anti-Inflamma Allergy (Verified 04/10/19 11:21) RACING HEARTBEAT Past Medical History - Social History Chew tobacco use (# tins/day): No Frequency of alcohol use: None Drug Abuse: None - Past Medical History Cardiac Medical History: Reports: Hx Hypertension Denies: Hx Atrial Fibrillation, Hx Coronary Artery Disease, Hx DVT, Hx Heart Attack, Hx Pulmonary Embolism Pulmonary Medical History: Reports: Hx Asthma, Hx Bronchitis, Hx COPD, Hx Pneumonia, Hx Respiratory Failure Denies: Hx Intubation Neurological Medical History: Denies: Hx Cerebrovascular Accident, Hx Seizures Endocrine Medical History: Reports: Hx Diabetes Mellitus Type 2. Denies: Hx Diabetes Mellitus Type 1, Hx Hyperthyroidism, Hx Hypothyroidism Renal/ Medical History: Denies: Hx Peritoneal Dialysis GI Medical History: Reports: Hx Gastroesophageal Reflux Disease. Denies: Hx Cirrhosis, Hx Crohn's Disease, Hx Hepatitis, Hx Ulcerative Colitis Musculoskeltal Medical History: Denies Hx Arthritis, Denies Hx Gout Skin Medical History: Denies Hx Eczema, Denies Hx Psoriasis Psychiatric Medical History: Denies: Hx Depression Infectious Medical History: Denies: Hx Hepatitis - Immunizations Immunizations up to date: Yes Hx Diphtheria, Pertussis, Tetanus Vaccination: No Physical Exam - Vital signs Vitals: Temp Pulse Resp BP Pulse Ox 101.3 F H 124 H 22 H 121/80 95 07/02/19 18:44 07/02/19 18:44 07/02/19 18:44 07/02/19 18:44 07/02/19 18:44 - Cardiovascular Rhythm: Tachycardia Heart sounds: S1 appreciated, S2 appreciated Murmur: No - Back Back: CVA tenderness - left Course - Vital Signs Vital signs: Temp Pulse Resp BP Pulse Ox 101.3 F H 124 H 22 H 121/80 95 07/02/19 19:01 07/02/19 18:44 07/02/19 19:01 07/02/19 18:44 07/02/19 19:01 Doctor's Discharge - Discharge Referrals: BONIFACIO MELENDEZ, MECHANICAL INSULATOR-C [Primary Care Provider] - Follow up as needed
--- NOTE | 2019-07-02 19:53 | RADIOLOGY REPORT (SQ) ---
EXAM DESCRIPTION: CHEST 2 VIEWS COMPLETED DATE/TIME: 07/02/2019 7:44 pm REASON FOR STUDY: fever, cough, recent pneumonia COMPARISON: 06/21/2019 TECHNIQUE: Frontal and lateral radiographic views of the chest acquired. NUMBER OF VIEWS: Two view. LIMITATIONS: None. FINDINGS: LUNGS AND PLEURA: No pneumothorax. Persistent consolidation in the left lower lobe medial basilar segment. No significant pleural effusion. MEDIASTINUM AND HILAR STRUCTURES: Stable. HEART AND VASCULAR STRUCTURES: Stable. BONES: No acute findings. HARDWARE: None in the chest. OTHER: No other significant finding. IMPRESSION: Persistent consolidation in the left lower lobe medial basilar segment. No significant pleural effusion. COMMENT: Follow-up recommended to confirm clearing. TECHNICAL DOCUMENTATION: JOB ID: [id number] [id number] 2010 [employer]- All Rights Reserved Reading location - IP/workstation name: [email or web address]
[2019-07-02 19:54] LABS: ABSOLUTE BASOPHILS # (AUTO) 0.1 10^3/uL (0.0-0.2); ABSOLUTE EOSINOPHILS # (AUTO) 0.4 10^3/uL (0.0-0.6); ABSOLUTE LYMPHOCYTES (AUTO) 1.1 10^3/uL (0.5-4.7); ABSOLUTE MONOCYTES (AUTO) 1.2 10^3/uL (0.1-1.4); ABSOLUTE NEUT (AUTO) 8.2 10^3/uL (1.7-8.2); BASOPHILS % (AUTO) 0.7 % (0-2); EOSINOPHILS % (AUTO) 3.6 % (0-6); HEMATOCRIT 32.9 % (36.0-47.0); HEMOGLOBIN 11.1 g/dL (12.0-15.5); LYMPHOCYTES % (AUTO) 9.7 % (13-45); MEAN CORPUSCULAR HEMOGLOBIN 25.9 pg (27.0-33.4); MEAN CORPUSCULAR HGB CONC 33.8 g/dL (32.0-36.0); MEAN CORPUSCULAR VOLUME 77 fl (80-97); MONOCYTES % (AUTO) 10.9 % (3-13); PLATELET COUNT 348 10^3/uL (150-450); RED CELL DISTRIBUTION WIDTH 14.6 % (11.5-14.0); SEGMENTED NEUTROPHILS % (AUTO) 75.1 % (42-78); TOTAL CELLS COUNTED % (AUTO) 100 %; WHITE BLOOD COUNT 10.9 10^3/uL (4.0-10.5)
[2019-07-02 19:56] LABS: VENOUS BLOOD BASE EXCESS 1.1 mmol/L; VENOUS BLOOD HCO3 26.4 mmol/L (20-32); VENOUS BLOOD PCO2 44.7 mmHg (35-63); VENOUS BLOOD PH 7.39 (7.30-7.42)
[2019-07-02 20:01] LABS: PROTHROMBIN TIME 13.2 SEC (11.4-15.4)
[2019-07-02 20:12] LABS: ALBUMIN 3.9 g/dL (3.5-5.0); ALKALINE PHOSPHATASE 93 U/L (38-126); ANION GAP 12 (5-19); ASPARTATE AMINO TRANSFERASE 18 U/L (14-36); BILIRUBIN,DIRECT 0.1 mg/dL (0.0-0.4); BILIRUBIN,TOTAL 0.3 mg/dL (0.2-1.3); BLOOD UREA NITROGEN 9 mg/dL (7-20); CALCIUM 9.5 mg/dL (8.4-10.2); CARBON DIOXIDE 25 mmol/L (22-30); CHLORIDE 108 mmol/L (98-107); GLUCOSE 109 mg/dL (75-110); POTASSIUM 3.8 mmol/L (3.6-5.0); TOTAL PROTEIN 7.2 g/dL (6.3-8.2)
[2019-07-02] MEDS ORDERED: VANCOMYCIN HCL 1,250 MG in DEXTROSE 5%-WATER 250 ML IV ONE (20:35)
[2019-07-02] MEDS ORDERED: DEXTROSE 50%-WATER 25 GM/50 ML DISP.SYRIN IV PRN ×2 (20:37)
[2019-07-02] MEDS ORDERED: DEXTROSE 40% GEL 15 GM TUBE PO PRN ×2 (20:37)
[2019-07-02] MEDS ORDERED: GLUCAGON,HUMAN RECOMB 1 MG INJ IM PRN (20:37)
[2019-07-02] MEDS ORDERED: DILTIAZEM HCL 90 MG TABLET PO ONE (20:37)
[2019-07-02] MEDS ORDERED: IPRATROPIUM/ALBUTEROL 0.5-2.5 MG/3 ML AMPUL NEB PRN (20:37)
--- NOTE | 2019-07-02 20:41 | ER Document Report ---
Entered by AZALIA BELTRÁN SCRIBE 07/02/192031 Acting as scribe for:EJ ROSADO IV, MD ED General - General Chief Complaint: Shortness Of Breath Stated Complaint: COUGH Time Seen by Provider: 07/02/19 19:05 Mode of Arrival: Ambulatory Information source: Patient Notes: This 58 year old female patient presents to the emergency department today with complaints of a productive cough and shortness of breath for the last x1.5 weeks. Patient reports that she was recently admitted for pneumonia, discharged on 06/25/19. Patient reports increased cough with shortness of breath today. TRAVEL OUTSIDE OF THE [place] IN LAST 30 DAYS: No - Related Data Allergies/Adverse Reactions: benzonatate [From [employer] [place]] Allergy (Verified 04/10/19 11:21) RCING HEARTBEART NSAIDS (Non-Steroidal Anti-Inflamma Allergy (Verified 04/10/19 11:21) RACING HEARTBEAT Past Medical History - General Information source: Patient - Social History Smoking Status: Never Smoker Cigarette use (# per day): No Chew tobacco use (# tins/day): No Frequency of alcohol use: None Drug Abuse: None Lives with: Family Family History: Reviewed & Not Pertinent, COPD, DM, Hypertension Patient has suicidal ideation: No Patient has homicidal ideation: No - Past Medical History Cardiac Medical History: Reports: Hx Hypertension Pulmonary Medical History: Reports: Hx Asthma, Hx Bronchitis, Hx COPD, Hx Pneumonia, Hx Respiratory Failure Endocrine Medical History: Reports: Hx Diabetes Mellitus Type 2 GI Medical History: Reports: Hx Gastroesophageal Reflux Disease Surgical Hx: Negative - Immunizations Immunizations up to date: Yes Hx Diphtheria, Pertussis, Tetanus Vaccination: No Review of Systems - Review of Systems Constitutional: See HPI, Fever EENT: No symptoms reported Cardiovascular: No symptoms reported Respiratory: See HPI, Cough, Short of breath Gastrointestinal: No symptoms reported Genitourinary: No symptoms reported Female Genitourinary: No symptoms reported Musculoskeletal: No symptoms reported Skin: No symptoms reported Hematologic/Lymphatic: No symptoms reported Neurological/Psychological: No symptoms reported -: Yes All other systems reviewed and negative Physical Exam - Vital signs Vitals: Temp Pulse Resp BP Pulse Ox 101.3 F H 124 H 22 H 121/80 95 07/02/19 18:44 07/02/19 18:44 07/02/19 18:44 07/02/19 18:44 07/02/19 18:44 - Notes Notes: Physical Exam: General: Alert, appears uncomfortable. HEENT: Normocephalic. Atraumatic. PERRL. Extraocular movements intact. Oropharynx clear. Neck: Supple. Non-tender. Respiratory: No respiratory distress. Diminished breath sounds bilaterally, left greater than right. Cardiovascular: Tachycardic, regular rhythm. Abdominal: Normal Inspection. Non-tender. No distension. Normal Bowel Sounds. Back: No gross abnormalities. Extremities: Moves all four extremities. Upper extremities: Normal inspection. Normal ROM. Lower extremities: Normal inspection. No edema. Normal ROM. Neurological: Normal cognition. AAOx4. Normal speech. Psychological: Normal affect. Normal Mood. Skin: Warm. Dry. Normal color. Course - Vital Signs Vital signs: Temp Pulse Resp BP Pulse Ox 101.3 F H 124 H 22 H 121/80 95 07/02/19 19:01 07/02/19 18:44 07/02/19 19:01 07/02/19 18:44 07/02/19 19:01 - Laboratory Result Diagrams: 07/02/19 19:35 07/02/19 19:35 Laboratory results interpreted by me: 07/02/19 07/02/19 07/02/19 19:35 19:35 19:35 WBC 10.9 H Hgb 11.1 L Hct 32.9 L MCV 77 L MCH 25.9 L RDW 14.6 H Lymph % (Auto) 9.7 L Chloride 108 H Lactic Acid (Sepsis) 2.7 H - Diagnostic Test Radiology reviewed: Reports reviewed - EKG Interpretation by Me Additional EKG results interpreted by me: 07/02/19 20:38 EKG performed on 07/02/2019 at [facility]7 hrs. was interpreted by this MD. Findings: Sinus tachycardia, rate 113, normal axis, P waves preceding QRS segments, QRS segments appear narrow, there are no obvious patterns of ST elevation or depression to suggest acute myocardial ischemia or infarction. Impression sinus tachycardia with nonspecific ST segments. - Consults dr. ursula chavez Time consulted: 20:37 Reason for consultation: 07/02/19 20:38 persistent pneumonia, lactic acidosis Consulted provider: will see as inpatient Discharge - Discharge Clinical Impression: Left lower lobe pneumonia, Sepsis Condition: Good Disposition: ADMITTED OBSERVATION Admitting Provider: Josh (Hospitalist) Unit Admitted: Telemetry I personally performed the services described in the documentation, reviewed and edited the documentation which was dictated to the scribe in my presence, and it accurately records my words and actions.
[2019-07-02] MEDS ORDERED: VANCOMYCIN HCL 0 MG in DEXTROSE 5%-WATER 250 ML IV NR (20:45)
[2019-07-02] MEDS ORDERED: VANCOMYCIN HCL INJ 1000 MG VIAL IV PRN (21:11)
[2019-07-02] MEDS ORDERED: IPRATROPIUM BROMIDE 0.02% NEB 0.5 MG/2.5 ML AMPUL NEB ONE (21:15)
[2019-07-02] MEDS ORDERED: LEVALBUTEROL HCL NEB 1.25 MG/3 ML AMPUL NEB ONE (21:15)
--- NOTE | 2019-07-02 21:28 | EKG REPORT ---
SEVERITY:- OTHERWISE NORMAL ECG - SINUS TACHYCARDIA : Confirmed by: Tianna Xavier 02-Jul-2019 21:26:54
[2019-07-02] MEDS ORDERED: DILTIAZEM HCL 90 MG TABLET ONE (22:18)
[2019-07-02] MEDS: CEFEPIME 1 GM/D5W RTU 1 GM/50 ML RTUPB IV SCH (23:58)
[2019-07-02] MEDS: HEPARIN SOD (PORCINE) 5,000 UNIT/ML 1 ML VIAL SUBCUT SCH (23:59)
[2019-07-02] MEDS: DILTIAZEM HCL 60 MG TABLET PO SCH (23:59)
[2019-07-03] MEDS: HEPARIN SOD (PORCINE) 5,000 UNIT/ML 1 ML VIAL SUBCUT SCH ×4 (00:10→21:16)
[2019-07-03] MEDS ORDERED: HYDROCODONE BIT/HOMATROPINE SYRUP 5 ML UDCUP PO PRN (01:28)
[2019-07-03] MEDS ORDERED: HYDROCODONE BIT/HOMATROPINE 5-1.5 MG TABLET PO PRN (02:11)
[2019-07-03] MEDS: LEVALBUTEROL HCL NEB 1.25 MG/3 ML AMPUL NEB SCH ×4 (02:19→20:49)
[2019-07-03] MEDS: IPRATROPIUM BROMIDE 0.02% NEB 0.5 MG/2.5 ML AMPUL NEB SCH ×4 (02:19→20:49)
[2019-07-03 05:09] LABS: HEMATOCRIT 32.3 % (36.0-47.0); HEMOGLOBIN 10.9 g/dL (12.0-15.5); MEAN CORPUSCULAR HEMOGLOBIN 25.9 pg (27.0-33.4); MEAN CORPUSCULAR HGB CONC 33.7 g/dL (32.0-36.0); MEAN CORPUSCULAR VOLUME 77 fl (80-97); PLATELET COUNT 313 10^3/uL (150-450); RED BLOOD COUNT 4.21 10^6/uL (3.72-5.28); RED CELL DISTRIBUTION WIDTH 14.9 % (11.5-14.0); WHITE BLOOD COUNT 9.6 10^3/uL (4.0-10.5)
[2019-07-03 05:38] LABS: ANION GAP 10 (5-19); BLOOD UREA NITROGEN 9 mg/dL (7-20); CALCIUM 9.2 mg/dL (8.4-10.2); CARBON DIOXIDE 27 mmol/L (22-30); CHLORIDE 105 mmol/L (98-107); GLUCOSE 107 mg/dL (75-110); POTASSIUM 3.5 mmol/L (3.6-5.0)
[2019-07-03] MEDS: HYDROCODONE BIT/HOMATROPINE 5-1.5 MG TABLET PO PRN ×2 (05:47→21:13)
--- NOTE | 2019-07-03 05:54 | PDOC H&P ---
History of Present Illness Admission Date/PCP: 07/02/19 20:38 JENNIFER MEYER Patient complains of: Fever and shortness of breath History of Present Illness: ADDIE STEWART is a 58 year old female with a past medical history of COPD, chronic bronchitis, hypertension, diabetes, GERD and recent influenza pneumonia. She was discharged 5 days ago. She presents with 24 hours of fever shortness of breath nonproductive cough prompting evaluation emergency room where she has a nonproductive cough, tachypnea, use of accessory muscles and fever of 100.2 with leukocytosis. She receives albuterol and Atrovent and referred to the hospitalist for admission. Patient Past Medical History Cardiac Medical History: Reports: Hypertension Denies: Atrial Fibrillation, Coronary Artery Disease, DVT, Myocardial Infarction, Pulmonary Embolism Pulmonary Medical History: Reports: Asthma, Bronchitis, Chronic Obstructive Pulmonary Disease (COPD), Pneumonia, Respiratory Failure Denies: Intubation Neurological Medical History: Denies: Seizures Endocrine Medical History: Reports: Diabetes Mellitus Type 2 Denies: Diabetes Mellitus Type 1, Hyperthyroidism, Hypothyroidism GI Medical History: Reports: Gastroesophageal Reflux Disease Denies: Cirrhosis, Crohn's Disease, Hepatitis, Ulcerative Colitis Musculoskeltal Medical History: Denies: Arthritis, Gout Skin Medical History: Denies: Eczema, Psoriasis Psychiatric Medical History: Denies: Depression Hematology: Denies: Anemia, Bleeding Tendencies Social History Information Source: Patient, [facility] Records Lives with: Family Smoking Status: Never Smoker Electronic Cigarette use?: No Frequency of Alcohol Use: None Hx Recreational Drug Use: No Drugs: None Hx Prescription Drug Abuse: No - Advance Directive Resuscitation Status: Full Code Family History Family History: Reviewed & Not Pertinent, COPD, DM, Hypertension Parental Family History Reviewed: Yes Children Family History Reviewed: Yes Sibling(s) Family History Reviewed.: Yes Medication/Allergy Home Medications: Budesonide/Formoterol Fumarate [Symbicort HFA 160-4.5 mcg Inhaler 6 gm] 2 puff IH Q12 06/22/19 Carvedilol [Coreg 3.125 mg Tablet] 3.125 mg PO Q12 06/22/19 Diltiazem HCl [Diltiazem 24Hr ER] 240 mg PO Q12 06/22/19 Levalbuterol HCl [Xopenex Neb 1.25 mg/3 ml Ampul] 1.25 mg NEB [id number] PRN 06/22/19 Levalbuterol Tartrate [Levalbuterol Tartrate Hfa] 2 puff IH Q4HP PRN 06/22/19 Metformin HCl [Glucophage] 1,000 mg PO BID 06/22/19 Montelukast Sodium [Singulair 10 mg Tablet] 10 mg PO QHS 06/22/19 Tiotropium [place] [Spiriva Handihaler 5 Cap/Kit (18 Mcg/Cap)] 1 puff IH DAILY 06/22/19 Oseltamivir Phosphate [Tamiflu 75 mg Capsule] 75 mg PO BID 3 Days #6 capsule 06/25/19 Allergies/Adverse Reactions: benzonatate [From Tessalpalmira Perljoe] Allergy (Verified 04/10/19 11:21) RCING HEARTBEART NSAIDS (Non-Steroidal Anti-Inflamma Allergy (Verified 04/10/19 11:21) RACING HEARTBEAT Review of Systems Constitutional: ABSENT: chills, fever(s), headache(s), weight gain, weight loss Eyes: ABSENT: visual disturbances Ears: ABSENT: hearing changes Cardiovascular: ABSENT: chest pain, dyspnea on exertion, edema, orthropnea, palpitations Respiratory: ABSENT: cough, hemoptysis Gastrointestinal: ABSENT: abdominal pain, constipation, diarrhea, hematemesis, hematochezia, nausea, vomiting Genitourinary: ABSENT: dysuria, hematuria Musculoskeletal: ABSENT: joint swelling Integumentary: ABSENT: rash, wounds Neurological: ABSENT: abnormal gait, abnormal speech, confusion, dizziness, focal weakness, syncope Psychiatric: ABSENT: anxiety, depression, homidical ideation, suicidal ideation Endocrine: ABSENT: cold intolerance, heat intolerance, polydipsia, polyuria Hematologic/Lymphatic: ABSENT: easy bleeding, easy bruising Physical Exam Vital Signs: Temp Pulse Resp BP Pulse Ox 97.3 F 104 H 26 H 104/46 L 96 07/02/19 23:03 07/03/19 02:15 07/03/19 02:15 07/02/19 23:03 07/03/19 02:15 Intake & Output 07/01/19 07/02/19 07/03/19 11:59 11:59 11:59 Intake Total 2430 Balance 2430 Weight 71.5 kg General appearance: PRESENT: cooperative, mild distress, well-developed, well- nourished Head exam: PRESENT: atraumatic, normocephalic Eye exam: PRESENT: conjunctiva pink, EOMI, PERRLA. ABSENT: scleral icterus Ear exam: PRESENT: normal external ear exam Mouth exam: PRESENT: moist, tongue midline Neck exam: ABSENT: carotid bruit, JVD, lymphadenopathy, thyromegaly Respiratory exam: PRESENT: accessory muscle use, decreased breath sounds, prolonged expiratory phas, rhonchi. ABSENT: symmetrical, wheezes Cardiovascular exam: PRESENT: RRR. ABSENT: diastolic murmur, rubs, systolic murmur Pulses: PRESENT: normal dorsalis pedis pul Vascular exam: PRESENT: normal capillary refill GI/Abdominal exam: PRESENT: normal bowel sounds, soft. ABSENT: distended, guarding, mass, organolmegaly, rebound, tenderness Rectal exam: PRESENT: deferred Extremities exam: PRESENT: full ROM. ABSENT: calf tenderness, clubbing, pedal edema Neurological exam: PRESENT: alert, awake, oriented to person, oriented to place, oriented to time, oriented to situation, CN II-XII grossly intact. ABSENT: motor sensory deficit Psychiatric exam: PRESENT: appropriate affect, normal mood. ABSENT: homicidal ideation, suicidal ideation Skin exam: PRESENT: dry, intact, warm. ABSENT: cyanosis, rash Results Laboratory Results: 07/03/19 04:42 07/02/19 07/02/19 07/02/19 19:35 19:35 19:35 WBC 10.9 H RBC 4.30 Hgb 11.1 L Hct 32.9 L MCV 77 L MCH 25.9 L MCHC 33.8 RDW 14.6 H Plt Count 348 Seg Neutrophils % 75.1 VBG pH 7.39 VBG pCO2 44.7 VBG HCO3 26.4 VBG Base Excess 1.1 Sodium 144.8 Potassium 3.8 Chloride 108 H Carbon Dioxide 25 Anion Gap 12 BUN 9 Creatinine 0.66 Est GFR ( Amer) > 60 Glucose 109 Calcium 9.5 Total Bilirubin 0.3 AST 18 Alkaline Phosphatase 93 Total Protein 7.2 Albumin 3.9 07/03/19 04:42 WBC 9.6 RBC 4.21 Hgb 10.9 L Hct 32.3 L MCV 77 L MCH 25.9 L MCHC 33.7 RDW 14.9 H Plt Count 313 Seg Neutrophils % VBG pH VBG pCO2 VBG HCO3 VBG Base Excess Sodium Potassium Chloride Carbon Dioxide Anion Gap BUN Creatinine Est GFR ( Amer) Glucose Calcium Total Bilirubin AST Alkaline Phosphatase Total Protein Albumin Impressions: Chest X-Ray 07/02/19 19:11 IMPRESSION: Persistent consolidation in the left lower lobe medial basilar segment. No significant pleural effusion. Assessment and Plan - Diagnosis (1) Left lower lobe pneumonia Is this a current diagnosis for this admission?: Yes Plan: Complicated by diabetes, influenza and recent inpatient treatment. She is ordered the pneumonia care set with vancomycin and cefepime. Follow-up CBC and blood culture (2) Sepsis Is this a current diagnosis for this admission?: Yes Plan: Secondary to #1, follow-up lactic acid (3) Acute exacerbation of chronic obstructive pulmonary disease (COPD) Is this a current diagnosis for this admission?: Yes Plan: Supplemental oxygen, albuterol, Atrovent, spirometry (4) Diabetes mellitus type 2 in nonobese Is this a current diagnosis for this admission?: Yes Plan: Rita sliding scale - Time Time Spent with patient: 25-34 minutes - Inpatient Certification Medical Necessity: Need Close Monitoring Due to Risk of Patient Decompensation
[2019-07-03] MEDS: DILTIAZEM HCL 60 MG TABLET PO SCH ×2 (07:44→11:34)
[2019-07-03] MEDS: INSULIN LISPRO 100 UNIT/ML 3 ML VIAL SUBCUT SCH ×3 (08:49→15:45)
[2019-07-03] MEDS: CEFEPIME 1 GM/D5W RTU 1 GM/50 ML RTUPB IV SCH ×3 (09:56→21:46)
[2019-07-03] MEDS: VANCOMYCIN HCL 1,250 MG in DEXTROSE 5%-WATER 250 ML IV SCH ×2 (11:34→23:27)
[2019-07-03] MEDS: ACETAMINOPHEN 325 MG TABLET PO PRN ×2 (13:26→21:14)
[2019-07-03 14:28] LABS: APPEARANCE,URINE CLEAR; BILIRUBIN,URINE NEGATIVE (NEGATIVE); COLOR,URINE YELLOW; GLUCOSE, URINE 50 mg/dL (NEGATIVE); KETONES,URINE NEGATIVE (NEGATIVE); PROTEIN,URINE NEGATIVE (NEGATIVE); URINE SPECIFIC GRAVITY 1.012; UROBILINOGEN,URINE NEGATIVE mg/dL (<2.0)
[2019-07-03] MEDS ORDERED: LEVALBUTEROL TARTRATE IH PRN (15:44)
--- NOTE | 2019-07-03 15:49 | PDOC PROGRESS REPORT ---
Subjective Progress Note for:: 07/03/19 Subjective:: No adverse events overnight. Oxygen levels have been fine on room air but she is not try to get up and walk around. She still has some prolonged expiration and a lot of upper airway congestion Reason For Visit: COPD EXACERBATION PNEUMONIA Physical Exam Vital Signs: Temp Pulse Resp BP Pulse Ox 99.6 F 112 H 18 125/79 95 07/03/19 10:26 07/03/19 14:24 07/03/19 14:24 07/03/19 10:26 07/03/19 14:24 Intake & Output 07/02/19 07/03/19 07/04/19 06:59 06:59 06:59 Intake Total 2430 370 Balance 2430 370 Weight 71.5 kg General appearance: PRESENT: no acute distress, cooperative, disheveled Respiratory exam: PRESENT: prolonged expiratory phas, rhonchi, symmetrical, unlabored. ABSENT: accessory muscle use, chest wall tenderness, crackles, tachypnea, wheezes Cardiovascular exam: PRESENT: +S1, +S2, tachycardia Pulses: PRESENT: normal carotid pulses Vascular exam: PRESENT: normal capillary refill GI/Abdominal exam: PRESENT: normal bowel sounds, soft. ABSENT: distended, guarding, rebound, tenderness Extremities exam: ABSENT: clubbing, pedal edema Musculoskeletal exam: PRESENT: normal inspection. ABSENT: deformity Neurological exam: PRESENT: alert, awake, oriented to person, oriented to place, oriented to situation Psychiatric exam: PRESENT: appropriate affect, normal mood Skin exam: PRESENT: dry, warm Results Laboratory Results: 07/03/19 04:42 07/03/19 04:42 07/02/19 07/02/19 07/02/19 19:35 19:35 19:35 WBC 10.9 H RBC 4.30 Hgb 11.1 L Hct 32.9 L MCV 77 L MCH 25.9 L MCHC 33.8 RDW 14.6 H Plt Count 348 Seg Neutrophils % 75.1 VBG pH 7.39 VBG pCO2 44.7 VBG HCO3 26.4 VBG Base Excess 1.1 Sodium 144.8 Potassium 3.8 Chloride 108 H Carbon Dioxide 25 Anion Gap 12 BUN 9 Creatinine 0.66 Est GFR ( Amer) > 60 Glucose 109 Calcium 9.5 Total Bilirubin 0.3 AST 18 Alkaline Phosphatase 93 Total Protein 7.2 Albumin 3.9 Urine Color Urine Appearance Urine pH Ur Specific [place] Urine Protein Urine Glucose (UA) Urine Ketones Urine Blood Urine RBC (Auto) 07/03/19 07/03/19 07/03/19 04:42 04:42 13:14 WBC 9.6 RBC 4.21 Hgb 10.9 L Hct 32.3 L MCV 77 L MCH 25.9 L MCHC 33.7 RDW 14.9 H Plt Count 313 Seg Neutrophils % VBG pH VBG pCO2 VBG HCO3 VBG Base Excess Sodium 142.1 Potassium 3.5 L Chloride 105 Carbon Dioxide 27 Anion Gap 10 BUN 9 Creatinine 0.60 Est GFR ( Amer) > 60 Glucose 107 Calcium 9.2 Total Bilirubin AST Alkaline Phosphatase Total Protein Albumin Urine Color YELLOW Urine Appearance CLEAR Urine pH 6.0 Ur Specific [place] 1.012 Urine Protein NEGATIVE Urine Glucose (UA) 50 H Urine Ketones NEGATIVE Urine Blood NEGATIVE Urine RBC (Auto) 1 Impressions: Chest X-Ray 07/02/19 19:11 IMPRESSION: Persistent consolidation in the left lower lobe medial basilar segment. No significant pleural effusion. Assessment and Plan - Diagnosis (1) Left lower lobe pneumonia Qualifiers: Pneumonia type: due to unspecified organism Qualified Code(s): J18.9 - Pneumonia, unspecified organism Is this a current diagnosis for this admission?: Yes Plan: We are treating her as a healthcare associated pneumonia, she is currently on broad-spectrum antibiotics, cultures are pending. (2) Acute exacerbation of chronic obstructive pulmonary disease (COPD) Is this a current diagnosis for this admission?: Yes Plan: We have resumed her home COPD medications, will getting her symptoms are resolved without use of steroids so will not affect her blood sugar (3) Diabetes mellitus type 2 in nonobese Is this a current diagnosis for this admission?: Yes Plan: Currently covered with a sliding scale (4) Hypertension Qualifiers: Hypertension type: essential hypertension Qualified Code(s): I10 - Ess ential (primary) hypertension Is this a current diagnosis for this admission?: Yes Plan: We have resumed her home medications - Time Time Spent with patient: 15-24 minutes
[2019-07-03] MEDS: DILTIAZEM HCL 240 MG CAPSULE.CR PO SCH (21:13)
[2019-07-03] MEDS: CARVEDILOL 3.125 MG TABLET PO SCH (21:14)
[2019-07-03] MEDS ORDERED: (PENDING PHARMACY ID) (Diltiazem Hcl [Diltiazem 24hr Er] 240 MG) PO SCH (22:00)
[2019-07-04] MEDS: IPRATROPIUM BROMIDE 0.02% NEB 0.5 MG/2.5 ML AMPUL NEB SCH ×4 (02:53→19:46)
[2019-07-04] MEDS: LEVALBUTEROL HCL NEB 1.25 MG/3 ML AMPUL NEB SCH ×4 (02:53→19:46)
[2019-07-04] MEDS: HEPARIN SOD (PORCINE) 5,000 UNIT/ML 1 ML VIAL SUBCUT SCH ×3 (05:21→21:28)
[2019-07-04] MEDS ORDERED: LEVALBUTEROL HCL NEB 1.25 MG/3 ML AMPUL NEB PRN (07:53)
[2019-07-04] MEDS: INSULIN LISPRO 100 UNIT/ML 3 ML VIAL SUBCUT SCH ×3 (08:17→16:08)
[2019-07-04] MEDS: ACETAMINOPHEN 325 MG TABLET PO PRN (09:05)
[2019-07-04] MEDS: DILTIAZEM HCL 240 MG CAPSULE.CR PO SCH ×2 (09:05→21:39)
[2019-07-04] MEDS: UMECLIDINIUM BROMIDE 62.5 MCG/DOSE IH SCH (09:06)
[2019-07-04] MEDS: FLUTICASONE/VILANTEROL 200-25 MCG/DOSE IH SCH (09:06)
[2019-07-04] MEDS: CARVEDILOL 3.125 MG TABLET PO SCH ×2 (09:06→21:40)
[2019-07-04] MEDS ORDERED: (PENDING PHARMACY ID) (Tiotropium Bromide [Spiriva Handihaler 5 Cap/Kit (18 Mcg/Cap)] 1 PU IH SCH (10:00)
--- NOTE | 2019-07-04 10:13 | PDOC PROGRESS REPORT ---
Subjective Progress Note for:: 07/04/19 Subjective:: 58 year old female with a past medical history of COPD, chronic bronchitis, hypertension, diabetes, GERD and recent influenza pneumonia. She was discharged 5 days ago. She presents with 24 hours of fever shortness of breath nonproductive cough prompting evaluation emergency room where she has a nonproductive cough, tachypnea, use of accessory muscles and fever of 100.2 with leukocytosis. She receives albuterol and Atrovent and referred to the hospitalist for admission. Patient [id number][birth year][age]hsr-old female with history of COPD, chronic bronchitis, hypertens ion, diabetes mellitus, recent history of influenza admitted for left-sided pneumonia. Patient is presently on cephapirin and vancomycin and she is refusing cephapirin complaining of her throat is hurting. To place her on Chloraseptic spray. Reason For Visit: COPD EXACERBATION PNEUMONIA Physical Exam Vital Signs: Temp Pulse Resp BP Pulse Ox 101.3 F H 109 H 18 136/63 H 94 07/04/19 07:41 07/04/19 08:03 07/04/19 08:03 07/04/19 07:41 07/04/19 08:03 Intake & Output 07/03/19 07/04/19 07/05/19 06:59 06:59 06:59 Intake Total 2430 1026 Output Total 200 Balance 2430 826 Weight 71.5 kg 71.8 kg General appearance: PRESENT: no acute distress, cooperative Head exam: PRESENT: atraumatic Eye exam: PRESENT: PERRLA Mouth exam: PRESENT: dry mucosa Neck exam: ABSENT: carotid bruit, JVD, lymphadenopathy, thyromegaly Respiratory exam: PRESENT: decreased breath sounds Cardiovascular exam: PRESENT: RRR. ABSENT: diastolic murmur, rubs, systolic murmur GI/Abdominal exam: PRESENT: normal bowel sounds, soft. ABSENT: distended, guarding, mass, organolmegaly, rebound, tenderness Rectal exam: PRESENT: deferred Extremities exam: PRESENT: full ROM. ABSENT: calf tenderness, clubbing, pedal edema Neurological exam: PRESENT: alert, awake, oriented to person, oriented to place, oriented to time, oriented to situation, CN II-XII grossly intact. ABSENT: motor sensory deficit Skin exam: PRESENT: dry, intact, warm. ABSENT: cyanosis, rash Results Laboratory Results: 07/03/19 04:42 07/03/19 04:42 07/03/19 13:14 Urine Color YELLOW Urine Appearance CLEAR Urine pH 6.0 Ur Specific [place] 1.012 Urine Protein NEGATIVE Urine Glucose (UA) 50 H Urine Ketones NEGATIVE Urine Blood NEGATIVE Urine RBC (Auto) 1 Impressions: Chest X-Ray 07/02/19 19:11 IMPRESSION: Persistent consolidation in the left lower lobe medial basilar segment. No significant pleural effusion. Assessment and Plan - Diagnosis (1) Left lower lobe pneumonia Qualifiers: Pneumonia type: due to unspecified organism Qualified Code(s): J18.9 - Pneumonia, unspecified organism Is this a current diagnosis for this admission?: Yes Plan: We are treating her as a healthcare associated pneumonia, she is currently on broad-spectrum antibiotics, cultures are pending. 07/04/2019-patient admitted with healthcare acquired pneumonia, blood cultures are negative so far. Patient is on cefepime and vancomycin refusing to take cephapirin. She is complaining of sore throat with cefepime, to give Chloraseptic spray and PRN basis. (2) COPD (chronic obstructive pulmonary disease) Qualifiers: COPD type: unspecified COPD Qualified Code(s): J44.9 - Chronic obstructive pulmonary disease, unspecified Is this a current diagnosis for this admission?: No Plan: 07/04/2019-patient has history of COPD number pulse oxes 94% on 2 L. Plan is to continue the present management. (3) Hypertension Qualifiers: Hypertension type: essential hypertension Qualified Code(s): I10 - Essential (primary) hypertension Is this a current diagnosis for this admission?: Yes Plan: We have resumed her home medications 07/04/2019-patient blood pressure today is 133/63 stable. Plan is to continue the present management at this time. (4) Diabetes mellitus type 2 in nonobese Is this a current diagnosis for this admission?: Yes Plan: Currently covered with a sliding scale 07/04/2019-latest blood sugar is 123, to continue insulin sliding scale before meals and at bedtime, dietary consult was provided, to check for hemoglobin A1c tomorrow.
[2019-07-04] MEDS: CEFEPIME 1 GM/D5W RTU 1 GM/50 ML RTUPB IV SCH ×2 (10:55→21:28)
[2019-07-04] MEDS: VANCOMYCIN HCL 1,250 MG in DEXTROSE 5%-WATER 250 ML IV SCH ×2 (11:05→17:36)
[2019-07-04] MEDS ORDERED: PHENOL/SODIUM PHENOLATE 100 SPRAY/177 ML BOTTLE PO PRN (11:30)
[2019-07-04 11:51] LABS: VANCOMYCIN,TROUGH 6.1 ug/mL (5.0-20.0)
[2019-07-04] MEDS: HYDROCODONE BIT/HOMATROPINE 5-1.5 MG TABLET PO PRN (21:39)
[2019-07-04] MEDS: MONTELUKAST SODIUM 10 MG TABLET PO SCH (21:40)
[2019-07-05] MEDS: IPRATROPIUM BROMIDE 0.02% NEB 0.5 MG/2.5 ML AMPUL NEB SCH ×4 (01:48→19:47)
[2019-07-05] MEDS: LEVALBUTEROL HCL NEB 1.25 MG/3 ML AMPUL NEB SCH ×4 (01:48→19:47)
[2019-07-05] MEDS: VANCOMYCIN HCL 1,250 MG in DEXTROSE 5%-WATER 250 ML IV SCH ×3 (02:38→18:43)
[2019-07-05] MEDS: HEPARIN SOD (PORCINE) 5,000 UNIT/ML 1 ML VIAL SUBCUT SCH ×3 (05:27→21:25)
[2019-07-05 05:47] LABS: ABSOLUTE EOSINOPHILS # (AUTO) 0.1 10^3/uL (0.0-0.6); ABSOLUTE LYMPHOCYTES (AUTO) 1.9 10^3/uL (0.5-4.7); ABSOLUTE MONOCYTES (AUTO) 0.7 10^3/uL (0.1-1.4); ABSOLUTE NEUT (AUTO) 1.3 10^3/uL (1.7-8.2); BASOPHILS % (AUTO) 0.6 % (0-2); EOSINOPHILS % (AUTO) 3.1 % (0-6); HEMATOCRIT 30.2 % (36.0-47.0); HEMOGLOBIN 10.1 g/dL (12.0-15.5); LYMPHOCYTES % (AUTO) 46.1 % (13-45); MEAN CORPUSCULAR HEMOGLOBIN 25.6 pg (27.0-33.4); MEAN CORPUSCULAR HGB CONC 33.4 g/dL (32.0-36.0); MEAN CORPUSCULAR VOLUME 77 fl (80-97); MONOCYTES % (AUTO) 17.8 % (3-13); PLATELET COUNT 307 10^3/uL (150-450); RED BLOOD COUNT 3.94 10^6/uL (3.72-5.28); RED CELL DISTRIBUTION WIDTH 14.8 % (11.5-14.0); SEGMENTED NEUTROPHILS % (AUTO) 32.4 % (42-78); TOTAL CELLS COUNTED % (AUTO) 100 %; WHITE BLOOD COUNT 4.2 10^3/uL (4.0-10.5)
[2019-07-05 06:05] LABS: ALBUMIN 3.2 g/dL (3.5-5.0); ALKALINE PHOSPHATASE 74 U/L (38-126); ANION GAP 7 (5-19); ASPARTATE AMINO TRANSFERASE 21 U/L (14-36); BILIRUBIN,DIRECT 0.1 mg/dL (0.0-0.4); BILIRUBIN,TOTAL 0.3 mg/dL (0.2-1.3); BLOOD UREA NITROGEN 8 mg/dL (7-20); CALCIUM 8.7 mg/dL (8.4-10.2); CARBON DIOXIDE 31 mmol/L (22-30); CHLORIDE 101 mmol/L (98-107); GLUCOSE 107 mg/dL (75-110); POTASSIUM 3.3 mmol/L (3.6-5.0); TOTAL PROTEIN 6.3 g/dL (6.3-8.2)
[2019-07-05] MEDS: INSULIN LISPRO 100 UNIT/ML 3 ML VIAL SUBCUT SCH ×3 (08:17→17:01)
[2019-07-05] MEDS: CARVEDILOL 3.125 MG TABLET PO SCH ×2 (09:27→21:25)
[2019-07-05] MEDS: DILTIAZEM HCL 240 MG CAPSULE.CR PO SCH ×2 (09:28→21:24)
[2019-07-05] MEDS: CEFEPIME 1 GM/D5W RTU 1 GM/50 ML RTUPB IV SCH ×2 (09:28→21:23)
[2019-07-05] MEDS ORDERED: POTASSIUM CHLORIDE 20 MEQ PACKET PO ONE (09:30)
--- NOTE | 2019-07-05 09:56 | PDOC PROGRESS REPORT ---
Subjective Progress Note for:: 07/05/19 Subjective:: The patient has a persistent cough. It is somewhat of a barking cough. She reports that there is some production of white sputum but has been difficult to produce. Despite the ongoing coughing she feels her breathing is slightly better. Reason For Visit: COPD EXACERBATION PNEUMONIA Physical Exam Vital Signs: Temp Pulse Resp BP Pulse Ox 98.7 F 92 18 98/60 L 96 07/05/19 08:23 07/05/19 08:23 07/05/19 08:23 07/05/19 08:23 07/05/19 08:23 Intake & Output 07/04/19 07/05/19 07/06/19 06:59 06:59 06:59 Intake Total 1026 1508 Output Total 200 Balance 826 1508 Weight 71.8 kg 72.8 kg General appearance: PRESENT: cooperative, mild distress - Persistent relentless coughing, well-developed Head exam: PRESENT: atraumatic, normocephalic Ear exam: PRESENT: normal external ear exam. ABSENT: bleeding, drainage Mouth exam: PRESENT: moist, neck supple, tongue midline Teeth exam: ABSENT: poor dentation Throat exam: PRESENT: other - No evidence of oral candidiasis Respiratory exam: PRESENT: rhonchi - Bilateral, symmetrical, tachypnea. ABSENT: chest wall tenderness, wheezes Cardiovascular exam: PRESENT: RRR, +S1, +S2, systolic murmur - 2/6 GI/Abdominal exam: PRESENT: normal bowel sounds, soft. ABSENT: distended, tenderness Rectal exam: PRESENT: deferred Extremities exam: PRESENT: full ROM. ABSENT: joint swelling, pedal edema Musculoskeletal exam: PRESENT: ambulatory, full ROM. ABSENT: normal inspection Neurological exam: PRESENT: alert, awake, oriented to person, oriented to place, oriented to time, oriented to situation, CN II-XII grossly intact Psychiatric exam: PRESENT: appropriate affect. ABSENT: agitated, anxious Focused psych exam: ABSENT: delusional, restlessness Skin exam: PRESENT: dry, normal color, warm. ABSENT: rash Results Laboratory Results: 07/05/19 05:12 07/05/19 05:12 07/04/19 07/05/19 07/05/19 10:37 05:12 05:12 WBC 4.2 RBC 3.94 Hgb 10.1 L Hct 30.2 L MCV 77 L MCH 25.6 L MCHC 33.4 RDW 14.8 H Plt Count 307 Seg Neutrophils % 32.4 L Sodium 139.3 Potassium 3.3 L Chloride 101 Carbon Dioxide 31 H Anion Gap 7 BUN 8 Creatinine 0.66 0.63 Est GFR ( Amer) > 60 > 60 Glucose 107 Calcium 8.7 Magnesium 1.9 Total Bilirubin 0.3 AST 21 Alkaline Phosphatase 74 Total Protein 6.3 Albumin 3.2 L Impressions: Chest X-Ray 07/02/19 19:11 IMPRESSION: Persistent consolidation in the left lower lobe medial basilar segment. No significant pleural effusion. Assessment and Plan - Diagnosis (1) Left lower lobe pneumonia Qualifiers: Pneumonia type: due to unspecified organism Qualified Code(s): J18.9 - Pneumonia, unspecified organism Is this a current diagnosis for this admission?: Yes Plan: 07/05/2019-treating healthcare associated pneumonia and therefore a bacterial cause is most likely. It is difficult to guess as to the exact bacteria. No sputum culture has been submitted. Continue cefepime and vancomycin. Originally the patient felt that the cefepime was irritating her throat. There was no evidence of thrush. Throat spray seems to be helping. (2) COPD (chronic obstructive pulmonary disease) Qualifiers: COPD type: COPD with acute exacerbation Qualified Code(s): J44.1 - Chronic obstructive pulmonary disease with (acute) exacerbation Is this a current diagnosis for this admission?: Yes Plan: 07/05/2019-the pneumonia has likely worsened her chronic obstructive pulmonary disease. She will continue on oxygen therapy as well as aggressive nebulizer treatments. I have added Mucinex and guaifenesin with dextromethorphan. Goal will be to return the patient to her home regimen. (3) Hypertension Qualifiers: Hypertension type: essential hypertension Qualified Code(s): I10 - Essential (primary) hypertension Is this a current diagnosis for this admission?: Yes Plan: 07/05/2019-the patient is on carvedilol and a large dose of diltiazem. Her blood pressure has been fluctuating. We will continue to monitor. If it is consistently low then we may need to reduce the diltiazem dose slightly. (4) Diabetes mellitus type 2 in nonobese Is this a current diagnosis for this admission?: Yes Plan: 07/05/2019-we will continue current regimen. We are achieving reasonable glucose control. If we need to employ systemic steroids then I would anticipate increased glucose levels and possibly a change in the treatment regimen. (5) Hypokalemia Is this a current diagnosis for this admission?: Yes Plan: 07/05/2019-serum potassium is only 3.3 today. The patient did report that seemingly every time she comes to the hospital her potassium is low. I have initiated oral potassium supplement. - Time Time Spent with patient: 15-24 minutes Medications reviewed and adjusted accordingly: Yes Anticipated discharge: Home Within: within 48 hours
[2019-07-05] MEDS: FLUTICASONE/VILANTEROL 200-25 MCG/DOSE IH SCH (10:24)
[2019-07-05] MEDS: UMECLIDINIUM BROMIDE 62.5 MCG/DOSE IH SCH (10:24)
[2019-07-05] MEDS ORDERED: GUAIFENESIN/D-METHORPHAN (200-20 MG) SYRUP 10 ML PO PRN (14:04)
[2019-07-05] MEDS: POTASSIUM CHLORIDE 10 MEQ TABLET.ER PO SCH ×2 (14:40→21:25)
[2019-07-05 18:12] LABS: VANCOMYCIN,TROUGH 13.9 ug/mL (5.0-20.0)
[2019-07-05] MEDS: MONTELUKAST SODIUM 10 MG TABLET PO SCH (21:24)
[2019-07-05] MEDS: GUAIFENESIN 600 MG TABLET.SA PO SCH (21:24)
[2019-07-06] MEDS: IPRATROPIUM BROMIDE 0.02% NEB 0.5 MG/2.5 ML AMPUL NEB SCH ×4 (02:26→21:13)
[2019-07-06] MEDS: LEVALBUTEROL HCL NEB 1.25 MG/3 ML AMPUL NEB SCH ×4 (02:26→21:13)
[2019-07-06] MEDS: VANCOMYCIN HCL 1,250 MG in DEXTROSE 5%-WATER 250 ML IV SCH ×3 (02:47→17:34)
[2019-07-06] MEDS: HEPARIN SOD (PORCINE) 5,000 UNIT/ML 1 ML VIAL SUBCUT SCH ×3 (05:01→22:53)
[2019-07-06] MEDS: POTASSIUM CHLORIDE 10 MEQ TABLET.ER PO SCH ×3 (05:03→22:58)
[2019-07-06 06:05] LABS: ANION GAP 7 (5-19); BLOOD UREA NITROGEN 7 mg/dL (7-20); CALCIUM 8.6 mg/dL (8.4-10.2); CARBON DIOXIDE 29 mmol/L (22-30); CHLORIDE 103 mmol/L (98-107); GLUCOSE 139 mg/dL (75-110); POTASSIUM 3.7 mmol/L (3.6-5.0)
[2019-07-06] MEDS: INSULIN LISPRO 100 UNIT/ML 3 ML VIAL SUBCUT SCH ×3 (09:10→16:27)
[2019-07-06] MEDS: CEFEPIME 1 GM/D5W RTU 1 GM/50 ML RTUPB IV SCH (09:58)
[2019-07-06] MEDS: GUAIFENESIN 600 MG TABLET.SA PO SCH ×2 (09:59→22:59)
[2019-07-06] MEDS: CARVEDILOL 3.125 MG TABLET PO SCH ×2 (10:00→22:57)
[2019-07-06] MEDS: DILTIAZEM HCL 240 MG CAPSULE.CR PO SCH ×2 (10:01→22:58)
[2019-07-06] MEDS: FLUTICASONE/VILANTEROL 200-25 MCG/DOSE IH SCH (10:01)
[2019-07-06] MEDS: UMECLIDINIUM BROMIDE 62.5 MCG/DOSE IH SCH (10:01)
--- NOTE | 2019-07-06 12:05 | PDOC PROGRESS REPORT ---
Subjective Progress Note for:: 07/06/19 Subjective:: The patient exhibits noticeably less coughing today. There is however significant nasal congestion. The patient reports a history of nasal polyps. She is currently resting comfortably on room air. She has no other complaints. She does feel that she is mobilizing more mucus. Reason For Visit: COPD EXACERBATION PNEUMONIA Physical Exam Vital Signs: Temp Pulse Resp BP Pulse Ox 98.3 F 90 20 124/66 93 07/05/19 23:50 07/06/19 08:00 07/06/19 08:00 07/05/19 23:50 07/06/19 08:00 Intake & Output 07/05/19 07/06/19 07/07/19 06:59 06:59 06:59 Intake Total 1508 1843 Balance 1508 1843 Weight 72.8 kg 72.6 kg General appearance: PRESENT: cooperative, mild distress, well-developed Head exam: PRESENT: atraumatic, normocephalic Ear exam: PRESENT: normal external ear exam. ABSENT: bleeding, drainage Mouth exam: PRESENT: moist, tongue midline Respiratory exam: PRESENT: rhonchi - Faint rhonchi, symmetrical, unlabored, wheezes - Bilateral expiratory wheezes. ABSENT: accessory muscle use, rales, tachypnea Cardiovascular exam: PRESENT: RRR, +S1, +S2 GI/Abdominal exam: PRESENT: normal bowel sounds, soft. ABSENT: distended, tenderness Rectal exam: PRESENT: deferred Extremities exam: PRESENT: full ROM. ABSENT: pedal edema Musculoskeletal exam: PRESENT: ambulatory, normal inspection. ABSENT: deformity Neurological exam: PRESENT: alert, awake, oriented to person, oriented to place, oriented to time, oriented to situation, CN II-XII grossly intact Psychiatric exam: PRESENT: appropriate affect. ABSENT: agitated, anxious Skin exam: PRESENT: dry, normal color, warm. ABSENT: rash Results Laboratory Results: 07/05/19 05:12 07/06/19 04:38 07/05/19 07/06/19 17:41 04:38 Sodium 139.3 Potassium 3.7 Chloride 103 Carbon Dioxide 29 Anion Gap 7 BUN 7 Creatinine 0.84 0.69 Est GFR ( Amer) > 60 > 60 Glucose 139 H Calcium 8.6 Impressions: Chest X-Ray 07/02/19 19:11 IMPRESSION: Persistent consolidation in the left lower lobe medial basilar segment. No significant pleural effusion. Assessment and Plan - Diagnosis (1) Left lower lobe pneumonia Qualifiers: Pneumonia type: due to unspecified organism Qualified Code(s): J18.9 - Pneumonia, unspecified organism Is this a current diagnosis for this admission?: Yes Plan: 07/05/2019-treating healthcare associated pneumonia and therefore a bacterial cause is most likely. It is difficult to guess as to the exact bacteria. No sputum culture has been submitted. Continue cefepime and vancomycin. Originally the patient felt that the cefepime was irritating her throat. There was no evidence of thrush. Throat spray seems to be helping. 07/06/2019-the patient still feels that there is discomfort related to the cefepime. I have discontinued the cefepime and will institute a azithromycin. (2) COPD (chronic obstructive pulmonary disease) Qualifiers: COPD type: COPD with acute exacerbation Qualified Code(s): J44.1 - Chronic obstructive pulmonary disease with (acute) exacerbation Is this a current diagnosis for this admission?: Yes Plan: 07/05/2019-the pneumonia has likely worsened her chronic obstructive pulmonary disease. She will continue on oxygen therapy as well as aggressive nebulizer treatments. I have added Mucinex and guaifenesin with dextromethorphan. Goal will be to return the patient to her home regimen. 07/06/2019-patient is resting on room air currently. We will continue nebulizers with guaifenesin and slowly return the patient to her home medication regimen. I have added budesonide every 12 hours at this time. Monitor for results. (3) Hypertension Qualifiers: Hypertension type: essential hypertension Qualified Code(s): I10 - Essential (primary) hypertension Is this a current diagnosis for this admission?: Yes Plan: 07/05/2019-the patient is on carvedilol and a large dose of diltiazem. Her blood pressure has been fluctuating. We will continue to monitor. If it is consistently low then we may need to reduce the diltiazem dose slightly. 07/06/2019-continue current regimen as patient exhibits good blood pressure control (4) Diabetes mellitus type 2 in nonobese Is this a current diagnosis for this admission?: Yes Plan: 07/05/2019-we will continue current regimen. We are achieving reasonable glucose control. If we need to employ systemic steroids then I would anticipate increased glucose levels and possibly a change in the treatment regimen. 07/06/[id number]-[id number] remained stable. Continue current regimen. (5) Hypokalemia Is this a current diagnosis for this admission?: Yes Plan: 07/05/2019-serum potassium is only 3.3 today. The patient did report that seemingly every time she comes to the hospital her potassium is low. I have initiated oral potassium supplement. 07/06/2019-serum potassium is normal today. Continue current supplement regimen. - Time Time Spent with patient: 15-24 minutes Medications reviewed and adjusted accordingly: Yes Anticipated discharge: Home
[2019-07-06] MEDS: BUDESONIDE NEB 0.25 MG/2 ML AMPUL NEB SCH (21:13)
[2019-07-06] MEDS ORDERED: AZITHROMYCIN 500 MG in DEXTROSE 5%-WATER 250 ML IV SCH (22:00)
[2019-07-06] MEDS: FLUTICASONE NASAL SPRAY 50 MCG/SPRY 120 SPRAY/16 GM NASL SCH (22:59)
[2019-07-06] MEDS: MONTELUKAST SODIUM 10 MG TABLET PO SCH (22:59)
[2019-07-07] MEDS: VANCOMYCIN HCL 1,250 MG in DEXTROSE 5%-WATER 250 ML IV SCH ×2 (01:45→10:17)
[2019-07-07] MEDS: IPRATROPIUM BROMIDE 0.02% NEB 0.5 MG/2.5 ML AMPUL NEB SCH ×2 (02:33→09:11)
[2019-07-07] MEDS: LEVALBUTEROL HCL NEB 1.25 MG/3 ML AMPUL NEB SCH ×2 (02:33→09:13)
[2019-07-07] MEDS: HEPARIN SOD (PORCINE) 5,000 UNIT/ML 1 ML VIAL SUBCUT SCH (06:10)
[2019-07-07] MEDS: POTASSIUM CHLORIDE 10 MEQ TABLET.ER PO SCH (06:11)
[2019-07-07] MEDS ORDERED: BUDESONIDE NEB 0.25 MG/2 ML AMPUL NEB ONE (09:10)
[2019-07-07] MEDS: BUDESONIDE NEB 0.25 MG/2 ML AMPUL NEB SCH (09:12)
[2019-07-07] MEDS: INSULIN LISPRO 100 UNIT/ML 3 ML VIAL SUBCUT SCH ×2 (10:12→12:33)
[2019-07-07] MEDS: FLUTICASONE NASAL SPRAY 50 MCG/SPRY 120 SPRAY/16 GM NASL SCH (10:17)
[2019-07-07] MEDS: DILTIAZEM HCL 240 MG CAPSULE.CR PO SCH (10:17)
[2019-07-07] MEDS: GUAIFENESIN 600 MG TABLET.SA PO SCH (10:18)
[2019-07-07] MEDS: CARVEDILOL 3.125 MG TABLET PO SCH (10:18)
[2019-07-07] MEDS: UMECLIDINIUM BROMIDE 62.5 MCG/DOSE IH SCH (10:19)
[2019-07-07] MEDS: FLUTICASONE/VILANTEROL 200-25 MCG/DOSE IH SCH (10:19)
--- NOTE | 2019-07-07 11:30 | PDOC DISCHARGE SUMMARY ---
Impression - Admit/DC Date/PCP Admission Date/Primary Care Provider: 07/02/19 20:38 JENNIFER MEYER Discharge Date: 07/07/19 - Discharge Diagnosis (1) Left lower lobe pneumonia Is this a current diagnosis for this admission?: Yes (2) COPD (chronic obstructive pulmonary disease) Is this a current diagnosis for this admission?: Yes (3) Hypertension Is this a current diagnosis for this admission?: Yes (4) Diabetes mellitus type 2 in nonobese Is this a current diagnosis for this admission?: Yes (5) Hypokalemia Is this a current diagnosis for this admission?: Yes - Additional Information Resuscitation Status: Full Code Discharge Diet: Diabetic Discharge Activity: Activity As Tolerated, Balance Activity w/Rest Referrals: BONIFACIO MELENDEZ FNP-C [Primary Care Provider] - 07/12/19 10:30 am (Please follow-up next week) Prescriptions: Hydrocodone Bit/Homatropine [Hycodan 5-1.5 mg Tablet] 1 tab PO Q6HP PRN 4 Days #8 tablet PRN Reason: Azithromycin [Zithromax 250 mg Tablet] 250 mg PO DAILY #6 tablet Home Medications: Budesonide/Formoterol Fumarate [Symbicort HFA 160-4.5 mcg Inhaler 6 gm] 2 puff IH Q12 06/22/19 Carvedilol [Coreg 3.125 mg Tablet] 3.125 mg PO Q12 06/22/19 Diltiazem HCl [Diltiazem 24Hr ER] 240 mg PO Q12 06/22/19 Levalbuterol HCl [Xopenex Neb 1.25 mg/3 ml Ampul] 1.25 mg NEB RTQ8HP PRN 06/22/19 Levalbuterol Tartrate [Levalbuterol Tartrate Hfa] 2 puff IH Q4HP PRN 06/22/19 Metformin HCl [Glucophage] 1,000 mg PO BID 06/22/19 Montelukast Sodium [Singulair 10 mg Tablet] 10 mg PO QHS 06/22/19 Tiotropium [place] [Spiriva Handihaler 5 Cap/Kit (18 Mcg/Cap)] 1 puff IH DAILY 06/22/19 Azithromycin [Zithromax 250 mg Tablet] 250 mg PO DAILY #6 tablet 07/07/19 Fluticasone Propionate [Flonase Nasal [place] 50 Mcg/[place] 16 gm] 1 spray NASL Q12 spray.pump 07/07/19 Guaifenesin [Mucinex Sr 600 mg Tablet.sa] 600 mg PO Q12 tablet.sa 07/07/19 Guaifenesin/D-Methorphan Hb [Robitussin-Dm Syrup 10 ml Udcup] 10 ml PO QIDP PRN syrup 07/07/19 Hydrocodone Bit/Homatropine [Hycodan 5-1.5 mg Tablet] 1 tab PO Q6HP PRN 4 Days #8 tablet 07/07/19 Phenol/Sodium Phenolate [Chloraseptic Sore Throat [place] 177 ml] 2 spray PO PRN PRN bottle 07/07/19 History of Present Illiness History of Present Illness: ADDIE STEWART is a 58 year old female history of COPD, chronic bronchitis, hypertension, diabetes, reflux, recent influenza pneumonia and recurrent shortness of breath. Discharged 5 days ago. Notes increasing shortness of breath over the last 24 hours with significant cough. She exhibited increased work of breathing with tachypnea, low-grade fever and leukocytosis. She was referred to the hospital service for admission. Hospital Course Hospital Course: The patient had an uneventful hospital course. With IV antibiotics she began to feel better. The Mucinex began to loosen mucus that she was coughing up. The only issue was that she felt the cefepime was causing throat irritation. I discontinue the cefepime and started a azithromycin. She states that she began to feel better after the azithromycin. She was tapered back to room air and was breathing comfortably at the time of discharge. Physical Exam Vital Signs: Temp Pulse Resp BP Pulse Ox 98.1 F 105 H 18 132/60 H 91 L 07/06/19 22:58 07/07/19 09:25 07/07/19 09:25 07/06/19 22:58 07/07/19 09:25 Intake & Output 07/06/19 07/07/19 07/08/19 06:59 06:59 06:59 Intake Total 1843 2158 Balance 1843 2158 Weight 72.6 kg 72.3 kg General appearance: PRESENT: no acute distress, cooperative, well-developed Head exam: PRESENT: atraumatic, normocephalic Mouth exam: PRESENT: moist, tongue midline Respiratory exam: PRESENT: rhonchi - Faint rhonchi, symmetrical, unlabored. ABSENT: rales, tachypnea, wheezes Cardiovascular exam: PRESENT: RRR, +S1, +S2 GI/Abdominal exam: PRESENT: normal bowel sounds, soft. ABSENT: tenderness Rectal exam: PRESENT: deferred Extremities exam: ABSENT: pedal edema Neurological exam: PRESENT: alert, awake, oriented to person, oriented to place, oriented to time, oriented to situation, CN II-XII grossly intact Psychiatric exam: PRESENT: appropriate affect, normal mood. ABSENT: agitated, anxious Focused psych exam: ABSENT: delusional, restlessness Skin exam: PRESENT: dry, normal color, warm Results Laboratory Results: WBC 4.2 10^3/uL (4.0-10.5) 07/05/19 05:12 RBC 3.94 10^6/uL (3.72-5.28) 07/05/19 05:12 Hgb 10.1 g/dL (12.0-15.5) L 07/05/19 05:12 Hct 30.2 % (36.0-47.0) L 07/05/19 05:12 MCV 77 fl (80-97) L 07/05/19 05:12 MCH 25.6 pg (27.0-33.4) L 07/05/19 05:12 MCHC 33.4 g/dL (32.0-36.0) 07/05/19 05:12 RDW 14.8 % (11.5-14.0) H 07/05/19 05:12 Plt Count 307 10^3/uL (150-450) 07/05/19 05:12 Lymph % (Auto) 46.1 % (13-45) H 07/05/19 05:12 [place] % (Auto) 17.8 % (3-13) H 07/05/19 05:12 Eos % (Auto) 3.1 % (0-6) 07/05/19 05:12 Baso % (Auto) 0.6 % (0-2) 07/05/19 05:12 Absolute Neuts (auto) 1.3 10^3/uL (1.7-8.2) L 07/05/19 05:12 Absolute Lymphs (auto) 1.9 10^3/uL (0.5-4.7) 07/05/19 05:12 Absolute Monos (auto) 0.7 10^3/uL (0.1-1.4) 07/05/19 05:12 Absolute Eos (auto) 0.1 10^3/uL (0.0-0.6) 07/05/19 05:12 Absolute Basos (auto) 0.0 10^3/uL (0.0-0.2) 07/05/19 05:12 Seg Neutrophils % 32.4 % (42-78) L 07/05/19 05:12 PT 13.2 SEC (11.4-15.4) 07/02/19 19:35 INR 1.00 07/02/19 19:35 VBG pH 7.39 (7.30-7.42) 07/02/19 19:35 VBG pCO2 44.7 mmHg (35-63) 07/02/19 19:35 VBG HCO3 26.4 mmol/L (20-32) 07/02/19 19:35 VBG Base Excess 1.1 mmol/L 07/02/19 19:35 Sodium 139.3 mmol/L (137-145) 07/06/19 04:38 Potassium 3.7 mmol/L (3.6-5.0) 07/06/19 04:38 Chloride 103 mmol/L (98-107) 07/06/19 04:38 Carbon Dioxide 29 mmol/L (22-30) 07/06/19 04:38 Anion Gap 7 (5-19) 07/06/19 04:38 BUN 7 mg/dL (7-20) 07/06/19 04:38 Creatinine 0.69 mg/dL (0.52-1.25) 07/06/19 04:38 Est GFR ( Amer) > 60 (>60) 07/06/19 04:38 Est GFR (MDRD) Non-Af > 60 (>60) 07/06/19 04:38 Glucose 139 mg/dL (75-110) H 07/06/19 04:38 POC Glucose 100 mg/dL (70-110) 07/07/19 08:21 Lactic Acid (Sepsis) 1.3 mmol/L (0.7-2.1) 07/03/19 01:16 Calcium 8.6 mg/dL (8.4-10.2) 07/06/19 04:38 Magnesium 1.9 mg/dL (1.6-2.3) 07/05/19 05:12 Total Bilirubin 0.3 mg/dL (0.2-1.3) 07/05/19 05:12 Direct Bilirubin 0.1 mg/dL (0.0-0.4) 07/05/19 05:12 Neonat Total Bilirubin Not Reportable 07/05/19 05:12 Neonat Direct Bilirubin Not Reportable 07/05/19 05:12 Neonat Indirect Bili Not Reportable 07/05/19 05:12 AST 21 U/L (14-36) 07/05/19 05:12 ALT 15 U/L (<35) 07/05/19 05:12 Alkaline Phosphatase 74 U/L (38-126) 07/05/19 05:12 Total Protein 6.3 g/dL (6.3-8.2) 07/05/19 05:12 Albumin 3.2 g/dL (3.5-5.0) L 07/05/19 05:12 Urine Color YELLOW 07/03/19 13:14 Urine Appearance CLEAR 07/03/19 13:14 Urine pH 6.0 (5.0-9.0) 07/03/19 13:14 Ur Specific Phenix 1.012 07/03/19 13:14 Urine Protein NEGATIVE mg/dL (NEGATIVE) 07/03/19 13:14 Urine Glucose (UA) 50 mg/dL (NEGATIVE) H 07/03/19 13:14 Urine Ketones NEGATIVE mg/dL (NEGATIVE) 07/03/19 13:14 Urine Blood NEGATIVE (NEGATIVE) 07/03/19 13:14 Urine Nitrite (Reflex) NEGATIVE (NEGATIVE) 07/03/19 13:14 Urine Bilirubin NEGATIVE (NEGATIVE) 07/03/19 13:14 Urine Urobilinogen NEGATIVE mg/dL (<2.0) 07/03/19 13:14 Leukocyte Esterase Rfl NEGATIVE (NEGATIVE) 07/03/19 13:14 Urine RBC (Auto) 1 /HPF 07/03/19 13:14 Urine WBC (Reflex) 1 /HPF 07/03/19 13:14 Squamous Epi Cells Auto <1 /HPF 07/03/19 13:14 Urine Mucus (Auto) OCC /LPF 07/03/19 13:14 Urine Ascorbic Acid 20 (NEGATIVE) H 07/03/19 13:14 Time Trough Drawn 1741 07/05/19 17:41 Vancomycin Trough 13.9 ug/mL (5.0-20.0) 07/05/19 17:41 Impressions: Chest X-Ray 07/02/19 19:11 IMPRESSION: Persistent consolidation in the left lower lobe medial basilar segment. No significant pleural effusion. Plan Health Concerns: Diabetes and COPD. Also persistently low potassium. Plan of Treatment: Antibiotics can resume inhalers. Resume diabetic regimen. Goals: Stabilize COPD. Try to prevent infection. Good glucose control. Time Spent: Greater than 30 Minutes Stroke Is this a Stroke Patient?: No Acute Heart Failure - Is this a Heart Failure Patient?: No
[2019-07-07 13:44] VITALS: BP 124/54
== END 2019-07-07 14:15 | disposition home or self-care (01) | DRG 194 ==
LOC: ER 18:15 → EH 20:38 → 5 22:45
PROVIDERS: ADMIT Internal Medicine; ATTEND Internal Medicine
DX: J18.9 Pneumonia, unspecified organism (principal); E87.2 Acidosis; J44.1 Chronic obstructive pulmonary disease with (acute) exacerbation; I10 Essential (primary) hypertension; E11.8 Type 2 diabetes mellitus with unspecified complications; K21.9 Gastro-esophageal reflux disease without esophagitis; E87.6 Hypokalemia
CPT/HCPCS: 36415; 71046; 80048; 80053; 80202; 81001; 82565; 82803; 82962; 83605; 83735; 85025; 85027; 85610; 87040; 93005; 93010; 94640; 94799; 99285; J0456; J0692; J1644; J3370; J3490; J7030; J7060; J7620; J7626

== ENCOUNTER → 2019-12-14 | Outpatient (CLI) | payer MEDICARE ==
--- NOTE | 2019-12-14 12:14 | RADIOLOGY REPORT (SQ) ---
EXAM DESCRIPTION: CHEST PA/LATERAL IMAGES COMPLETED DATE/TIME: 12/14/2019 12:00 pm REASON FOR STUDY: ABNORMAL CXR COMPARISON: 07/02/2019 EXAM PARAMETERS: NUMBER OF VIEWS: two views TECHNIQUE: Digital Frontal and Lateral radiographic views of the chest acquired. RADIATION DOSE: NA LIMITATIONS: none FINDINGS: LUNGS AND PLEURA: Improved left basilar aeration from prior. No new airspace disease, ple ural effusion or pneumothorax. MEDIASTINUM AND HILAR STRUCTURES: No masses or contour abnormalities. HEART AND VASCULAR STRUCTURES: Heart normal size. No evidence for failure. BONES: No acute findings. HARDWARE: None in the chest. OTHER: No other significant finding. IMPRESSION: No evidence of acute cardiopulmonary process. Improved left basilar aeration from prior exams. TECHNICAL DOCUMENTATION: JOB ID: [id number] 2010 [employer]- All Rights Reserved Reading location - IP/workstation name: [email or web address]
== END ==
LOC: OD 11:48
PROVIDERS: ATTEND Internal Medicine Pulmonary Disease
DX: R93.89 Abnormal findings on diagnostic imaging of other specified body structures (principal)
CPT/HCPCS: 71046

== ENCOUNTER → 2019-12-29 | Outpatient (CLI) | payer MEDICARE | LOC: OD 09:52 | PROVIDERS: ATTEND Otolaryngology | DX: J30.9 Allergic rhinitis, unspecified (principal) | CPT/HCPCS: 36415; 82785; 86003 ==

== ENCOUNTER 2020-01-11 10:01 | Day surgery (SDC) | payer MEDICARE ==
[~2020-01-11 10:01] MED LIST: CEFAZOLIN 2 GM/D5W RTU 2 GM/50 ML RTUPB IV ONE; CEFAZOLIN 2 GM/D5W RTU 2 GM/50 ML RTUPB IV PRN
[2020-01-11] MEDS ORDERED: MIDAZOLAM 2 MG/2 ML INJ ONE (10:03)
[2020-01-11] MEDS ORDERED: ONDANSETRON HCL INJ/PF 4 MG/2 ML SDV ONE (10:03)
[2020-01-11] MEDS ORDERED: PROPOFOL INJ 200 MG/20 ML VIAL IV ONE (10:03)
[2020-01-11] MEDS ORDERED: FENTANYL CITRATE INJ/PF 100 MCG/2 ML AMPUL ONE (10:03)
[2020-01-11] MEDS ORDERED: HYDROMORPHONE HCL INJ/PF 2 MG/ML AMPULE ONE (10:03)
[2020-01-11] MEDS ORDERED: DEXAMETHASONE SOD PHOSPHATE INJ 4 MG/1 ML VIAL ONE (10:03)
[2020-01-11] MEDS ORDERED: ROCURONIUM BROMIDE INJ 50 MG/5 ML VIAL IV ONE (11:26)
[2020-01-11] MEDS ORDERED: EPINEPHRINE INJ/PF 1 MG/1 ML AMPULE ONE (11:30)
[2020-01-11] MEDS ORDERED: TRIAMCINOLONE ACETONIDE INJ 40 MG/1 ML VIAL ONE (11:30)
[2020-01-11] MEDS ORDERED: COCAINE HCL 4% TOPICAL SOLN 4 ML ONE (11:31)
[2020-01-11] MEDS ORDERED: OXYMETAZOLINE HCL 0.05% NASAL SPRAY 15 ML BOTTLE ONE (11:31)
[2020-01-11] MEDS ORDERED: LIDOCAINE 2%/EPINEPHRINE INJ 1.7 ML CARTRIDGE ONE (11:33)
[2020-01-11] MEDS ORDERED: ONDANSETRON HCL INJ/PF 4 MG/2 ML SDV IV PRN ×2 (12:18→14:15)
[2020-01-11] MEDS ORDERED: DIPHENHYDRAMINE HCL 50 MG/ML VIAL IV PRN (12:18)
[2020-01-11] MEDS ORDERED: MEPERIDINE HCL/PF INJ 25 MG/1 ML DISP.SYRIN IV PRN (12:18)
[2020-01-11] MEDS ORDERED: MORPHINE SULFATE 10 MG/ML INJ IV PRN (12:18)
[2020-01-11] MEDS ORDERED: OXYCODONE-ACETAMINOPHEN 5-325 MG TABLET PO PRN ×2 (12:18)
[2020-01-11] MEDS ORDERED: FENTANYL CITRATE INJ/PF 100 MCG/2 ML AMPUL IV PRN ×3 (12:18)
[2020-01-11] MEDS ORDERED: HYDROCODONE/ACETAMINOPHEN 5-325 MG TABLET PO PRN (14:14)
[2020-01-11 16:59] VITALS: BP 146/75
--- NOTE | 2020-01-11 17:46 | Operative Report ---
Operative Report-[facility] Operative Report: Date: 11 January 2020 History: 59-year-old female with a history of nasal polyposis, asthma and hypers ensitivity to aspirin/NSAIDs. Patient is currently on Xolair for her allergic asthma. Physical exam revealed bilateral nasal polyposis and this was confirmed by CT scan. The patient presents today for an endoscopic sinus surgery with nasal polypectomy and possible nasal septoplasty. Informed consent was obtained from the patient Preoperative Diagnosis: 1. Nasal Polyposis 2. Chronic Sinusitis 3. Deviated Nasal Septum Postoperative Diagnosis: Same as above plus 4. Allergic fungal sinusitis Procedure: 1. Maxillary sinus antrostomy, right 2. Maxillary sinus antrostomy, left 3. Removal contents/tissue from maxillary sinus, left [CPT= 37206] 4. Frontal sinusotomy, right 5. Frontal sinusotomy, left 6. Total ethmoidectomy, right 7. Total ethmoidectomy, left 8. Nasal polypectomy, right 9. Nasal polypectomy, left Anesthesia: GETA Description of the procedure: After receiving informed consent, the patient was taken to the operating room and placed supine on the operating room table. After successful reduction and intubation by anesthesia, cottonoids saturated with 4% cocaine were placed into each nasal cavity for approximately 5 minutes. The cottonoids were withdrawn an d the nasal septum, middle turbinate and nasal polyps were injected with 2% Xylocaine with 100,000 epinephrine. The cottonoids were replaced. The image guidance system was calibrated to the patient and found to be functioning normally. The patient was then prepped and draped in a sterile fashion. The image guidance instrumentation was also calibrated to the system and found to be functioning. Cottonoids were removed from the left side. Rigid nasal endoscope was inserted into the nasal cavity and the polyps and lateral nasal wall were injected with 2% Xylocaine 100,000 epinephrine. The microdebrider was used to perform the nasal polypectomy. The polyps were within the middle meatus and extended posteriorly towards the choana.. Seeker was placed in the infundibulum and the uncinate process was displaced anteriorly. An uncinectomy was performed using a Blakesley forceps and microdebrider. An olive-tipped suction was used to gain entrance into the maxillary sinus through the natural os. The natural os was then widened anteriorly, using backbiters and inferiorly and posteriorly using microdebrider. Thick allergic mucin and polyps were removed from the left maxillary sinus. The maxillary sinus was irrigated with normal saline using the vortex system. Blakesley forceps and microdebrider were used to perform an ethmoidectomy. The microdebrider was then used to perform a frontal sinusotomy. An Afrin saturated cottonoid was placed into the middle meatus. Attention was then directed to the right nasal cavity where in a similar fashion a nasal polypectomy, max antrostomy, total ethmoidectomy and frontal sinusotomy were performed. The polyps were involving the middle meatus and extended posteriorly towards the choana. Allergic mucin was not found within the right maxillary sinus. The cottonoid was removed from the middle meatus and keeping the middle turbinate medialized a Sinuva stent was placed into each middle meatus along with an absorbable pack. This pack was then infiltrated with Kenalog 40. The patient was then given back to anesthesia who successfully extubated the patient without any complications. Estimated blood loss: 20 mL Fluids: 600 mL The patient was then transported to the post anesthesia care unit in stable condition with spontaneous respirations. No complications.
== END 2020-01-11 15:57 | disposition home or self-care (01) ==
LOC: OROUT 10:01
PROVIDERS: ATTEND Otolaryngology
DX: J33.9 Nasal polyp, unspecified (principal); J34.3 Hypertrophy of nasal turbinates; J34.2 Deviated nasal septum; H60.332 Swimmer's ear, left ear; J32.4 Chronic pansinusitis; Z88.6 Allergy status to analgesic agent; J45.909 Unspecified asthma, uncomplicated; J30.9 Allergic rhinitis, unspecified; E11.9 Type 2 diabetes mellitus without complications; J44.9 Chronic obstructive pulmonary disease, unspecified; I10 Essential (primary) hypertension; R00.0 Tachycardia, unspecified; J45.50 Severe persistent asthma, uncomplicated; Z87.891 Personal history of nicotine dependence; E66.9 Obesity, unspecified; Z79.899 Other long term (current) drug therapy; Z03.818 Encounter for observation for suspected exposure to other biological agents ruled out; Z79.84 Long term (current) use of oral hypoglycemic drugs
CPT/HCPCS: 82962; 88305 ×2; 00160; 31267; 31276; 31255; 31237; 31256; U0003; J2250; J3490 ×3; J1100; J1170; A9270; J2405; J3301; J2704; J0690; C9803; 160; 87635; C1769; C9122; J0171; J3010

== ENCOUNTER → 2020-04-11 | Outpatient (CLI) | payer MEDICARE ==
--- NOTE | 2020-04-11 12:53 | WOMENS IMAGING REPORT ---
EXAM DESCRIPTION: 3D SCREENING MAMMO BILAT IMAGES COMPLETED DATE/TIME: 04/11/2020 11:58 am REASON FOR STUDY: Z12.31 ENCNTR SCREEN MAMMOGRAM FOR MALIGNANT NEOPLASM OF BREAST Z12.31 ENCNTR SCR EEN MAMMOGRAM FOR MALIGNANT NEOPLASM OF [place]ICE COMPARISON: Multiple since 2017 EXAM PARAMETERS: Views: Standard craniocaudal and mediolateral oblique views of each breast recorded using digital acquisition and breast tomosynthesis. Read with the assistance of CAD. .[facility] - [employer] Nanny Version 9.2 LIMITATIONS: None. FINDINGS: No suspicious masses, suspicious calcifications or architectural distortion. No areas of c oncern. IMPRESSION: NEGATIVE MAMMOGRAM. BIRADS 1. BREAST DENSITY: c. The breasts are heterogeneously dense, which may obscure small masses. BIRAD: ASSESSMENT: 1 NEGATIVE RECOMMENDATION: ROUTINE SCREENING Please continue yearly bilateral screening mammography/tomosynthesis in March 2021 COMMENT: The patient has been notified of the results by letter per [place] requirements. Additional no tification policies are in place for contacting patient with suspicious or incomplete findings. Quality ID #[id number]: [employer] [place] [employer] recommends an annual screening mammogram for women aged 40 years or over. This facility utilizes a reminder system to ensure that all patients receive reminder letters, and/or direct phone calls for appointments. This includes reminders for routine scr eening mammograms, diagnostic mammograms, or other Breast Imaging Interventions when appropriate. Th is patient will be placed in the appropriate reminder system. TECHNICAL DOCUMENTATION: FINDING NUMBER: (1) ASSESSMENT: (1) JOB ID: [id number] 2010 [employer]- All Rights Reserved Reading location - IP/workstation name: [email or web address]
== END ==
LOC: WI 11:37
PROVIDERS: ATTEND Nurse Practitioner Family
DX: Z12.31 Encounter for screening mammogram for malignant neoplasm of breast (principal)
CPT/HCPCS: 77063; 77067